=== PATIENT | female | born 1935 | race Caucasian/White ===

== ENCOUNTER 2016-08-10 19:23 | Inpatient (IN) | payer OTHER ==
[2016-08-10] MEDS ORDERED: DUONEB NEB STA (19:38)
[2016-08-10 19:59] LABS: ABG PCO2 29.3 mmHg (35-45); ABG PH 7.413 (7.35-7.45)
--- NOTE | 2016-08-10 19:59 | ED.PDOC ---
General ED Provider: Dr. CONY GALLARDO Chief Complaint: Fever Stated Complaint: Patient is an 81 year old female who comes to the ER with fever body aches and weakness for the last two days. Time Seen by Physician: 19:56 Mode of Arrival: Wheelchair Information Source: Patient, Family Exam Limitations: No limitations Primary Care Provider: CHRIS NELSON Nursing and Triage Documentation Reviewed and Agree: Yes Miscellaneous Complaint Exam - Febrile Illness/Adult Complaint/Exam Onset/Duration: 2 days Symptoms Are: Still present Timing: Constant Highest Temperature Recorded: 101 Initial Severity: Moderate Current Severity: Severe Alleviating: Reports: None Associated Signs and Symptoms: Reports: Short of air Pseudomonas Risk Factors: Reports: None Serious Bacterial Infection Risk Factors: Reports: None Differential Diagnoses: Bacteremia, Pneumonia, Viremia, Other (serum ) Patient Advised to Stop Smoking: No Review of Systems - Review Of Systems Constitutional: Reports: Fever, Weakness, Other (body ache ) Eyes: Reports: No symptoms Ears, Nose, Mouth, Throat: Reports: No symptoms Respiratory: Reports: Cough, Short of air Cardiac: Reports: No symptoms GI: Reports: No symptoms : Reports: No symptoms Musculoskeletal: Reports: No symptoms Skin: Reports: No symptoms Neurological: Reports: No symptoms Endocrine: Reports: No symptoms Hematologic/Lymphatic: Reports: No symptoms All Other Systems: Reviewed and Negative Past Medical History - Past Medical History Endocrine: Reports: Hypothyroid, Dyslipidemia Cardiovascular: Reports: CAD, Hypertension Respiratory: Reports: COPD (on home oxygen ) Hematological: Reports: None Gastrointestinal: Reports: GERD Genitourinary: Reports: None Neuro/Psych: Reports: Anxiety, Depression Musculoskeletal: Reports: Arthritis Cancer: Reports: None Last Menstrual Period: NA - Surgical History General Surgical History: Reports: Stent Placement, Other (ovarian Cyst ) - Family History Family History: Reports: None - Social History Smoking Status: Former smoker Hx Substance Use: No Alcohol Screening: None - Immunizations Tetanus Shot up to Date: No Physical Exam - Physical Exam Appearance: Ill-appearing, Well-nourished Ill-appearing: Moderate Pain Distress: Mild Eyes: DICK, EOMI, Conjunctiva clear ENT: Nose normal, Oropharynx normal Neck: Supple Respiratory: Airway patent, Breath sounds clear, Breath sounds equal, Respirations nonlabored Cardiovascular: RRR, Pulses normal, No rub, No murmur GI/: Soft, Nontender, No masses, Bowel sounds normal, No Organomegaly Musculoskeletal: Normal strength, ROM intact, No edema, No calf tenderness Skin: Warm, Dry, Normal color Neurological: Sensation intact, Motor intact, Cranial nerves intact, Alert, Oriented Psychiatric: Affect appropriate, Anxious Interpretation - Radiology Interpretation Radiology Interpretation By: ED Physician Radiology Results: Positive Exam Interpreted: Portable CXR (mild left basilar Atelectasis and or Pneumonia. ) - EKG Interpretation Rate: Normal Rhythm: Sinus Ectopy: None [place]: Left Interpretation: st-t wave abnomality consider anterolateral ischemia Re-Evaluation - Re-Evaluation Time of Re-Evaluation: 22:33 Status: Improved Vital Signs Stable: Yes Lungs: Other (diminihsed) Physician Notification - Case Discussed Physician Notified: Sagastume Time of Notification: 22:20 (Admit to SCU ) Critical Care Note - Critical Care Note Total Time (mins): 40 Course - Course Hematology/Chemistry: 08/10/16 20:00 08/10/16 20:00 Orders, Labs, Meds: Lab Review 08/10/16 08/10/16 19:38 20:00 WBC 1.85 L* RBC 4.25 Hgb 13.0 Hct 38.9 MCV 91.5 MCH 30.6 MCHC 33.4 RDW Coeff of Nataliya 14.1 Plt Count 102 L Immature Gran % (Auto) 0.5 Neut % (Auto) 78.9 Lymph % (Auto) 14.1 [place] % (Auto) 5.4 Eos % (Auto) 0.0 Baso % (Auto) 1.1 Immature Gran # (Auto) 0.0 Neut # 1.5 L Lymph # 0.3 L [place] # 0.1 L Eos # 0.0 Baso # 0.0 PT 20.1 H INR 1.95 Puncture Site lr O2 Saturation 85.0 L ABG pH 7.413 ABG pCO2 29.3 L ABG pO2 48.0 L* ABG HCO3 18.7 L ABG Total CO2 20 L ABG Base Excess -6 L Micheal Test + FiO2 % 21.0 Sodium 138 Potassium 3.7 Chloride 109 H Carbon Dioxide 19 L Anion Gap 13.7 BUN 15 Creatinine 1.07 Estimated GFR (MDRD) 49.00 BUN/Creatinine Ratio 14.01 Glucose 107 Lactic Acid 8.3 Calcium 9.2 Total Bilirubin 0.88 AST 72 H ALT 42 Alkaline Phosphatase 44 L Total Creatine Kinase 53 Troponin I 0.0180 B-Natriuretic Peptide 107 H Total Protein 6.3 Albumin 3.7 Globulin 2.6 Albumin/Globulin Ratio 1.42 Procalcitonin 0.19 Acetaminophen 6 L Orders Category Date Time Status ADMIT PATIENT INPATIENT .TO SCU (MONITORED BED) ADMISSION 08/10/16 22:17 Active ABG DRAW REQUEST Stat CARDIO 08/10/16 19:39 Completed EKG-(ED ONLY) Stat CARDIO 08/10/16 19:38 Completed NEBULIZER TREATMENT Routine CARDIO 08/10/16 22:24 Ordered NEBULIZER TREATMENT Stat CARDIO 08/10/16 19:39 Completed OXYGEN Routine CARDIO 08/10/16 22:17 Ordered ACTIVITY .BR with BRP CARE 08/10/16 22:19 Active INTAKE & OUTPUT Q8HR CARE 08/10/16 22:17 Active TELEMETRY MONITORING TELE CARE 08/10/16 22:18 Active VITAL SIGNS Q4HR CARE 08/10/16 22:19 Active REGULAR DIET DIETARY 08/10/16 Breakfast Ordered ED APPLY O2 .ONCE EMERGENCY 08/10/16 19:38 Active ED LAST PICKER APPLIED .ONCE EMERGENCY 08/10/16 19:38 Active ED IV/MEDIPORT/POWERPORT .ONCE EMERGENCY 08/10/16 19:38 Active ABG Stat LAB 08/10/16 19:38 Completed B-TYPE NATRIURETIC PEPTIDE Stat LAB 08/10/16 20:00 Completed BLOOD CULTURE Stat LAB 08/10/16 20:00 Received CBC W/ AUTO DIFF DAILY@0600 LAB 08/11/16 06:00 Ordered CBC W/ AUTO DIFF DAILY@0600 LAB 08/12/16 06:00 Ordered CBC W/ AUTO DIFF DAILY@0600 LAB 08/13/16 06:00 Ordered CBC W/ AUTO DIFF DAILY@0600 LAB 08/14/16 06:00 Ordered CBC W/ AUTO DIFF DAILY@0600 LAB 08/15/16 06:00 Ordered CBC W/ AUTO DIFF DAILY@0600 LAB 08/16/16 06:00 Ordered CBC W/ AUTO DIFF DAILY@0600 LAB 08/17/16 06:00 Ordered CBC W/ AUTO DIFF DAILY@0600 LAB 08/18/16 06:00 Ordered CBC W/ AUTO DIFF DAILY@0600 LAB 08/19/16 06:00 Ordered CBC W/ AUTO DIFF DAILY@0600 LAB 08/20/16 06:00 Ordered CBC W/ AUTO DIFF DAILY@0600 LAB 08/21/16 06:00 Ordered CBC W/ AUTO DIFF DAILY@0600 LAB 08/22/16 06:00 Ordered CBC W/ AUTO DIFF DAILY@0600 LAB 08/23/16 06:00 Ordered CBC W/ AUTO DIFF DAILY@0600 LAB 08/24/16 06:00 Ordered CBC W/ AUTO DIFF DAILY@0600 LAB 08/25/16 06:00 Ordered CBC W/ AUTO DIFF DAILY@0600 LAB 08/26/16 06:00 Ordered CBC W/ AUTO DIFF DAILY@0600 LAB 08/27/16 06:00 Ordered CBC W/ AUTO DIFF DAILY@0600 LAB 08/28/16 06:00 Ordered CBC W/ AUTO DIFF DAILY@0600 LAB 08/29/16 06:00 Ordered CBC W/ AUTO DIFF DAILY@0600 LAB 08/30/16 06:00 Ordered CBC W/ AUTO DIFF Stat LAB 08/10/16 20:00 Completed COMPREHENSIVE METABOLIC PANEL DAILY@0600 LAB 08/11/16 06:00 Ordered COMPREHENSIVE METABOLIC PANEL DAILY@0600 LAB 08/12/16 06:00 Ordered COMPREHENSIVE METABOLIC PANEL DAILY@0600 LAB 08/13/16 06:00 Ordered COMPREHENSIVE METABOLIC PANEL DAILY@0600 LAB 08/14/16 06:00 Ordered COMPREHENSIVE METABOLIC PANEL DAILY@0600 LAB 08/15/16 06:00 Ordered COMPREHENSIVE METABOLIC PANEL DAILY@0600 LAB 08/16/16 06:00 Ordered COMPREHENSIVE METABOLIC PANEL DAILY@0600 LAB 08/17/16 06:00 Ordered COMPREHENSIVE METABOLIC PANEL DAILY@0600 LAB 08/18/16 06:00 Ordered COMPREHENSIVE METABOLIC PANEL DAILY@0600 LAB 08/19/16 06:00 Ordered COMPREHENSIVE METABOLIC PANEL DAILY@0600 LAB 08/20/16 06:00 Ordered COMPREHENSIVE METABOLIC PANEL DAILY@0600 LAB 08/21/16 06:00 Ordered COMPREHENSIVE METABOLIC PANEL DAILY@0600 LAB 08/22/16 06:00 Ordered COMPREHENSIVE METABOLIC PANEL DAILY@0600 LAB 08/23/16 06:00 Ordered COMPREHENSIVE METABOLIC PANEL DAILY@0600 LAB 08/24/16 06:00 Ordered COMPREHENSIVE METABOLIC PANEL DAILY@0600 LAB 08/25/16 06:00 Ordered COMPREHENSIVE METABOLIC PANEL DAILY@0600 LAB 08/26/16 06:00 Ordered COMPREHENSIVE METABOLIC PANEL DAILY@0600 LAB 08/27/16 06:00 Ordered COMPREHENSIVE METABOLIC PANEL DAILY@0600 LAB 08/28/16 06:00 Ordered COMPREHENSIVE METABOLIC PANEL DAILY@0600 LAB 08/29/16 06:00 Ordered COMPREHENSIVE METABOLIC PANEL DAILY@0600 LAB 08/30/16 06:00 Ordered COMPREHENSIVE METABOLIC PANEL Stat LAB 08/10/16 20:00 Completed CREATINE KINASE Stat LAB 08/10/16 20:00 Completed LACTIC ACID Stat LAB 08/10/16 20:00 Completed PROCALCITONIN Stat LAB 08/10/16 20:00 Completed PT WITH INR DAILY@0600 LAB 08/11/16 06:00 Ordered PT WITH INR DAILY@0600 LAB 08/12/16 06:00 Ordered PT WITH INR DAILY@0600 LAB 08/13/16 06:00 Ordered PT WITH INR DAILY@0600 LAB 08/14/16 06:00 Ordered PT WITH INR DAILY@0600 LAB 08/15/16 06:00 Ordered PT WITH INR DAILY@0600 LAB 08/16/16 06:00 Ordered PT WITH INR DAILY@0600 LAB 08/17/16 06:00 Ordered PT WITH INR DAILY@0600 LAB 08/18/16 06:00 Ordered PT WITH INR DAILY@0600 LAB 08/19/16 06:00 Ordered PT WITH INR DAILY@0600 LAB 08/20/16 06:00 Ordered PT WITH INR DAILY@0600 LAB 08/21/16 06:00 Ordered PT WITH INR DAILY@0600 LAB 08/22/16 06:00 Ordered PT WITH INR DAILY@0600 LAB 08/23/16 06:00 Ordered PT WITH INR DAILY@0600 LAB 08/24/16 06:00 Ordered PT WITH INR DAILY@0600 LAB 08/25/16 06:00 Ordered PT WITH INR DAILY@0600 LAB 08/26/16 06:00 Ordered PT WITH INR DAILY@0600 LAB 08/27/16 06:00 Ordered PT WITH INR DAILY@0600 LAB 08/28/16 06:00 Ordered PT WITH INR DAILY@0600 LAB 08/29/16 06:00 Ordered PT WITH INR DAILY@0600 LAB 08/30/16 06:00 Ordered PT WITH INR Stat LAB 08/10/16 20:00 Completed RAPID FLU A/B Stat LAB 08/10/16 22:32 Uncollected STREP SCREEN Stat LAB 08/10/16 22:32 Uncollected TROPONIN I Stat LAB 08/10/16 20:00 Completed TYLENOL LEVEL [ACETAMINOPHEN] Stat LAB 08/10/16 20:00 Completed UA [URINALYSIS C & S IF INDICATED] Stat LAB 08/10/16 22:16 Uncollected 0.9 % Sodium Chloride [Saline Flush] MEDS 08/10/16 19:38 Ordered 1 syr IVF PRN PRN Acetaminophen [Tylenol] MEDS 08/10/16 22:17 Ordered 650 mg PO Q4H PRN Alprazolam [Alprazolam Odt] MEDS 08/11/16 09:00 Ordered 0.25 mg PO TID Atorvastatin Calcium [Lipitor] MEDS 08/11/16 09:00 Ordered 40 mg PO DAILY Calc/D3/Mag/Zn/Integrity Director/[place] [Calcium 600 mg + Vit D MEDS 08/11/16 09:00 Ordered Tab] 1 each PO BID Fenofibrate [Triglide] MEDS 08/11/16 09:00 Ordered 54 mg PO DAILY Ferrous Sulfate [Ferrous Sulfate] MEDS 08/11/16 09:00 Ordered 325 mg PO DAILY Fish Oil/Dha/Epa [Fish Oil 1,200 mg Fish Oil] MEDS 08/11/16 09:00 Ordered 1 cap PO BID Hydrocodone Bit/Acetaminophen MEDS 08/10/16 22:24 Ordered 1 tab PO BID PRN Ipratropium/Albuterol Neb [Duoneb] MEDS 08/10/16 19:38 Discontinued 1 vial NEB ONCE STA Ipratropium/Albuterol Neb [Duoneb] MEDS 08/11/16 06:00 Ordered 1 vial NEB RTQID Levothyroxine Sodium [Tirosint] MEDS 08/11/16 09:00 Ordered 13 mcg PO DAILY Lisinopril [Zestril] MEDS 08/11/16 09:00 Ordered 20 mg PO DAILY Loratadine [Claritin] MEDS 08/11/16 09:00 Ordered 10 mg PO DAILY Methylprednisolone Sod Succ/Pf [Solu-Medrol 125 mg] MEDS 08/11/16 05:00 Ordered 125 mg IVP Q8HR Ondansetron HCl/Pf [Zofran 4 mg/2 ml] MEDS 08/10/16 22:17 Ordered 4 mg IVP Q6H PRN Piperacillin Sodium/Tazobactam [Zosyn 3.375 gm] 3.375 MEDS 08/10/16 20:29 Discontinued gm 0.9 % Sodium Chloride [Sodium Chloride] 100 ml IV ONCE Piperacillin Sodium/Tazobactam [Zosyn 3.375 gm] 3.375 MEDS 08/11/16 00:00 Ordered gm 0.9 % Sodium Chloride [Sodium Chloride] 100 ml IV Q6HR Sertraline HCl [Zoloft] MEDS 08/11/16 09:00 Ordered 75 mg PO DAILY Sodium Chloride 0.9% [Sodium Chloride] 1,000 ml MEDS 08/10/16 22:30 Ordered IV 125 mls/hr Sodium Chloride 0.9% [Sodium Chloride] 1,000 ml MEDS 08/10/16 22:30 Discontinued IV 75 mls/hr Sodium Chloride 0.9% [Sodium Chloride] 1,000 ml MEDS 08/10/16 20:30 Discontinued IV BOLUS Vancomycin HCl [Vancomycin] 1 gm MEDS 08/10/16 21:15 Discontinued 0.9 % Sodium Chloride [Sodium Chloride] 250 ml IV ONCE Vancomycin HCl [Vancomycin] 1 gm MEDS 08/11/16 09:00 Ordered 0.9 % Sodium Chloride [Sodium Chloride] 250 ml IV Q12HR Warfarin Sodium [Coumadin] MEDS 08/11/16 09:00 Ordered 3 mg PO DAILY RESUSCITATION STATUS Routine OTHERS 08/10/16 22:17 Ordered CHEST, 1V AP ONLY Stat RADS 08/10/16 19:38 Completed Medications Generic Name Dose Route Start Last Admin Trade Name Freq PRN Reason Stop Dose Admin Acetaminophen 650 mg 08/10/16 22:17 Tylenol PO Q4H PRN Fever >101 Albuterol/Ipratropium 1 vial 08/11/16 06:00 Duoneb NEB RTQID CHUY Fenofibrate 54 mg 08/11/16 09:00 Triglide PO DAILY CHUY Piperacillin Sod/Tazobactam 100 mls @ 100 mls/hr 08/11/16 00:00 Sod 3.375 gm/ Sodium Chloride IV Q6HR CHUY Vancomycin HCl 1 gm/ Sodium 250 mls @ 125 mls/hr 08/11/16 09:00 Chloride IV Q12HR CHUY Sodium Chloride 1,000 mls @ 125 mls/hr 08/10/16 22:30 Sodium Chloride IV .Q8H CHUY Lisinopril 20 mg 08/11/16 09:00 Zestril PO DAILY CHUY Methylprednisolone Sodium Succinate 125 mg 08/11/16 05:00 Solu-Medrol 125 Mg IVP Q8HR CHUY Non-Formulary Medication 1 each 08/11/16 09:00 Calc/D3/Mag/Zn/Integrity Director/[place] [Calcium 600 Mg + Vit D Tab] PO BID CHUY Non-Formulary Medication 325 mg 08/11/16 09:00 Ferrous Sulfate [Ferrous Sulfate] PO DAILY CHUY Non-Formulary Medication 1 cap 08/11/16 09:00 Fish Oil/Dha/Epa [Fish Oil 1,200 Mg Fish Oil] PO BID CHUY Non-Formulary Medication 1 tab 08/10/16 22:24 Hydrocodone Bit/Acetaminophen PO BID PRN Severe Pain Non-Formulary Medication 13 mcg 08/11/16 09:00 Levothyroxine Sodium [Tirosint] PO DAILY [facility] Non-Formulary Medication 10 mg 08/11/16 09:00 Loratadine [Claritin] PO DAILY [facility] Non-Formulary Medication 3 mg 08/11/16 09:00 Warfarin Sodium [Coumadin] PO DAILY CHUY Non-Formulary Medication 0.25 mg 08/11/16 09:00 Alprazolam [Alprazolam Odt] PO TID CHUY Non-Formulary Medication 40 mg 08/11/16 09:00 Atorvastatin Calcium [Lipitor] PO DAILY [facility] Ondansetron HCl 4 mg 08/10/16 22:17 Zofran 4 Mg/2 Ml IVP Q6H PRN Nausea / Vomiting Sertraline HCl 75 mg 08/11/16 09:00 Zoloft PO DAILY [facility] Sodium Chloride 1 syr 08/10/16 19:38 08/10/16 20:39 Saline Flush IVF 1 syr PRN PRN Administration To flush IV Discontinued Medications Generic Name Dose Route Start Last Admin Trade Name Freq PRN Reason Stop Dose Admin Albuterol/Ipratropium 1 vial 08/10/16 19:38 08/10/16 20:08 Duoneb NEB 08/10/16 19:39 1 vial ONCE STA Administration Piperacillin Sod/Tazobactam 100 mls @ 100 mls/hr 08/10/16 20:29 08/10/16 20: 44 Sod 3.375 gm/ Sodium Chloride IV 08/10/16 21:28 100 mls/hr ONCE STA Administration Sodium Chloride 1,000 mls @ 1,000 mls/hr 08/10/16 20:30 08/10/16 20:39 Sodium Chloride IV 08/10/16 21:29 1,000 mls/hr BOLUS STA Administration Vancomycin HCl 1 gm/ Sodium 250 mls @ 250 mls/hr 08/10/16 21:15 08/10/16 22: 10 Chloride IV 08/10/16 22:14 250 mls/hr ONCE STA Administration Sodium Chloride 1,000 mls @ 75 mls/hr 08/10/16 22:30 Sodium Chloride IV .[id number] CHUY Vital Signs: Temp Pulse Resp BP Pulse Ox 08/10/16 19:24 101.6 F H 84 32 H 115/65 83 L Departure - Departure Time of Disposition: 22:27 Disposition: ADMITTED INPATIENT Discharge Problem: Fever, Hypoxia Pneumonia Qualifiers: Pneumonia type: due to unspecified organism Laterality: left Lung location: lower lobe of lung Qualifier Code: (J18.1) Lobar pneumonia, unspecified organism Condition: Critical Pt referred to PMD for follow-up: Yes Allergies/Adverse Reactions: Allergies propoxyphene HCl [From Darvon] Adverse Reaction (Verified 08/10/16 19:45) Home Medications: Ambulatory Orders Alendronate Sodium [Fosamax] 70 mg PO WEEKLY FOSAMAX 10/05/12 Alprazolam [Alprazolam Odt] 0.25 mg PO TID 10/05/12 Atorvastatin Calcium [Lipitor] 40 mg PO DAILY 10/05/12 Calc/D3/Mag/Zn/Integrity Director/[place] [Calcium 600 mg + Vit D Tab] 1 each PO BID Fenofibrate 54 mg PO DAILY 10/05/12 Ferrous Sulfate 325 mg PO DAILY 10/05/12 Hydrocodone Bit/Acetaminophen [Lortab 5-500] 1 tab PO BID PRN 10/05/12 Levothyroxine Sodium [Tirosint] 13 mcg PO DAILY 10/05/12 Lisinopril [Zestril] 20 mg PO DAILY 10/05/12 Sertraline HCl 75 mg PO DAILY 10/05/12 Warfarin Sodium [Coumadin] 3 mg PO DAILY 10/05/12 Fish Oil/Dha/Epa [Fish Oil 1,200 mg Fish Oil] 1 cap PO BID 08/10/16 Loratadine [Claritin] 10 mg PO DAILY 08/10/16
[2016-08-10 20:00] LABS: ABG BASE EXCESS -6 (-2.0-2.0); ABG HCO3 18.7 (22.0-26.0); ABG TCO2 20 (22.0-28.0)
[2016-08-10 20:12] LABS: BASOPHILS % (AUTO) 1.1 % (0.0-3.0); HEMATOCRIT 38.9 % (37.0-47.0); IMMATURE GRANULOCYTE % (AUTO) 0.5 % (0.0-5.0); LYMPHOCYTES # (AUTO) 0.3 K/uL (0.60-3.4); LYMPHOCYTES % (AUTO) 14.1 (10.0-50.0); MEAN CORPUSCULAR HEMOGLOBIN 30.6 pg (27.0-31.0); MEAN CORPUSCULAR HGB CONC 33.4 (31.8-35.4); MEAN CORPUSCULAR VOLUME 91.5 fl (81.0-99.0); MONOCYTES # (AUTO) 0.1 K/uL (0.4-2.0); MONOCYTES % (AUTO) 5.4 (0-10); NEUTROPHILS # (AUTO) 1.5 K/ul (2.0-6.9); NEUTROPHILS % (AUTO) 78.9; PLATELET COUNT 102 10^3/uL (140-440); RED BLOOD COUNT 4.25 10^6/ul (4.20-5.40)
[2016-08-10 20:25] LABS: WHITE BLOOD COUNT 1.85 K/ul (4.6-10.2)
[2016-08-10] MEDS ORDERED: ZOSYN 3.375 GM 3.375 GM in SODIUM CHLORIDE 100 ML IV STA (20:29)
[2016-08-10] MEDS ORDERED: SODIUM CHLORIDE 1,000 ML IV STA (20:30)
[2016-08-10 20:35] LABS: ALBUMIN 3.7 g/dL (3.4-5.0); ALBUMIN/GLOBULIN RATIO 1.42; ANION GAP 13.7; BILIRUBIN,TOTAL 0.88 mg/dL (0.00-1.20); BUN/CREATININE RATIO 14.01; CALCIUM 9.2 mg/dL (8.2-10.2); CREATININE 1.07 mg/dL (0.60-1.30); POTASSIUM 3.7 mmol/L (3.5-5.10); TOTAL PROTEIN 6.3 g/dL (5.8-8.1); TROPONIN I 0.018 ng/ml (0.0000-0.4000)
[2016-08-10 20:41] LABS: PROTHROMBIN TIME 20.1 SEC (9.3-11.0)
--- NOTE | 2016-08-10 20:58 | DI ---
EXAM: AP single view of the chest. HISTORY: Shortness of breath. Fever and cough. FINDINGS: The bones are unremarkable. The cardiac silhouette is mildly enlarged. Pulmonary vascula ture is within normal limits. The costophrenic angles are clear. There are calcified granulomas. There is minimal left basilar atelectasis and/or pneumonia. Impression: Minimal left basilar atelectasis and/or pneumonia. Cardiomegaly.
[2016-08-10] MEDS ORDERED: VANCOMYCIN 1 GM in SODIUM CHLORIDE 250 ML IV STA (21:15)
[2016-08-10] MEDS ORDERED: TYLENOL PO PRN (22:17)
[2016-08-10] MEDS ORDERED: ZOFRAN 4 MG/2 ML IVP PRN (22:17)
[2016-08-10] MEDS ORDERED: NON-FORMULARY MEDICATION (Hydrocodone Bit/Acetaminophen 1 TAB) PO PRN (22:24)
[2016-08-10] MEDS ORDERED: SODIUM CHLORIDE 1,000 ML IV SCH (22:30)
[2016-08-10 22:58] LABS: FLU INTERNAL QC INTERNAL QC VALID; RAPID FLU A NEGATIVE (NEGATIVE); RAPID FLU B NEGATIVE (NEGATIVE)
[2016-08-11 00:29] VITALS: BMI 23.6
[2016-08-11 00:46] LABS: BILIRUBIN,URINE Negative (NEGATIVE); KETONES,URINE Negative (NEGATIVE); LEUKOCYTE ESTERASE ,URINE Trace (NEGATIVE); NITRITE,URINE Positive (NEGATIVE); PROTEIN,URINE Negative (NEGATIVE); URINE, BLOOD 2+ (NEGATIVE)
[2016-08-11 00:47] LABS: ADD URINE MICROSCOPIC YES
[2016-08-11 00:50] LABS: BACTERIA,URINE 1+ (NOT PRESENT)
[2016-08-11] MEDS: ZOSYN 3.375 GM 3.375 GM in SODIUM CHLORIDE 100 ML IV SCH ×4 (01:15→18:18)
[2016-08-11] MEDS ORDERED: NORCO 5-325 ONE (04:04)
[2016-08-11] MEDS: SODIUM CHLORIDE 1,000 ML IV SCH ×2 (04:08→12:44)
[2016-08-11 04:46] LABS: BASOPHILS % (AUTO) 0.6 % (0.0-3.0); HEMATOCRIT 35.2 % (37.0-47.0); HEMOGLOBIN 11.4 g/dl (12.0-16.0); IMMATURE GRANULOCYTE % (AUTO) 1.2 % (0.0-5.0); LYMPHOCYTES # (AUTO) 0.4 K/uL (0.60-3.4); LYMPHOCYTES % (AUTO) 22.1 (10.0-50.0); MEAN CORPUSCULAR HEMOGLOBIN 30.2 pg (27.0-31.0); MEAN CORPUSCULAR HGB CONC 32.4 (31.8-35.4); MEAN CORPUSCULAR VOLUME 93.4 fl (81.0-99.0); MONOCYTES # (AUTO) 0.1 K/uL (0.4-2.0); MONOCYTES % (AUTO) 7.6 (0-10); NEUTROPHILS # (AUTO) 1.2 K/ul (2.0-6.9); NEUTROPHILS % (AUTO) 68.5; PLATELET COUNT 77 10^3/uL (140-440); RED BLOOD COUNT 3.77 10^6/ul (4.20-5.40)
[2016-08-11] MEDS: SOLU-MEDROL 125 MG IVP SCH ×3 (04:46→20:48)
[2016-08-11 04:59] LABS: WHITE BLOOD COUNT 1.72 K/ul (4.6-10.2)
[2016-08-11 05:03] LABS: ALBUMIN 3.1 g/dL (3.4-5.0); ALBUMIN/GLOBULIN RATIO 1.35; ANION GAP 11.9; BILIRUBIN,TOTAL 0.89 mg/dL (0.00-1.20); BUN/CREATININE RATIO 12.26; CALCIUM 8.2 mg/dL (8.2-10.2); CREATININE 1.06 mg/dL (0.60-1.30); POTASSIUM 3.9 mmol/L (3.5-5.10); TOTAL PROTEIN 5.4 g/dL (5.8-8.1)
[2016-08-11] MEDS: DUONEB NEB SCH ×4 (05:17→21:14)
[2016-08-11] MEDS ORDERED: DUONEB NEB ONE (05:17)
[2016-08-11] MEDS ORDERED: NORCO 5-325 PO PRN (07:16)
[2016-08-11] MEDS: CALCIUM 500 + VIT D 200 MG TABLET PO SCH ×2 (08:42→20:17)
[2016-08-11] MEDS: ZOLOFT PO SCH (08:42)
[2016-08-11] MEDS: TRIGLIDE PO SCH (08:43)
[2016-08-11] MEDS: ZESTRIL PO SCH (08:43)
[2016-08-11] MEDS: OMEGA-3 FISH OIL PO SCH ×2 (08:43→20:17)
[2016-08-11] MEDS: CLARITIN PO SCH (08:43)
[2016-08-11] MEDS: LIPITOR PO SCH (08:43)
[2016-08-11] MEDS ORDERED: NON-FORMULARY MEDICATION (Atorvastatin Calcium [Lipitor] 40 MG) PO SCH ×22 (09:00)
[2016-08-11] MEDS ORDERED: XANAX PO SCH (09:00)
[2016-08-11] MEDS ORDERED: LEVOTHYROXINE SODIUM 13 MCG PO SCH (09:00)
[2016-08-11] MEDS ORDERED: VANCOMYCIN 1 GM in SODIUM CHLORIDE 250 ML IV SCH (09:00)
[2016-08-11] MEDS ORDERED: NON-FORMULARY MEDICATION (Loratadine [Claritin] 10 MG) PO SCH ×22 (09:00)
[2016-08-11] MEDS ORDERED: FERROUS SULFATE PO SCH (09:00)
[2016-08-11] MEDS ORDERED: DHA PO SCH (09:00)
[2016-08-11] MEDS ORDERED: FISH OIL PO SCH (09:00)
[2016-08-11] MEDS ORDERED: NON-FORMULARY MEDICATION (Ferrous Sulfate [Ferrous Sulfate] 325 MG) PO SCH ×22 (09:00)
[2016-08-11] MEDS ORDERED: ALPRAZOLAM 0.25 MG PO SCH (09:00)
[2016-08-11] MEDS ORDERED: EPA PO SCH (09:00)
[2016-08-11] MEDS ORDERED: NON-FORMULARY MEDICATION (Warfarin Sodium [Coumadin] 3 MG) PO SCH ×22 (09:00)
[2016-08-11] MEDS ORDERED: XANAX PO PRN (11:21)
[2016-08-11] MEDS: SYNTHROID PO SCH (12:48)
[2016-08-11] MEDS: NORCO 5-325 PO PRN (12:49)
[2016-08-11] MEDS ORDERED: COUMADIN PO SCH (17:00)
[2016-08-11] MEDS: FERROUS SULFATE PO SCH (20:17)
[2016-08-11] MEDS: VANCOMYCIN 1 GM in SODIUM CHLORIDE 250 ML IV SCH (20:17)
[2016-08-11] MEDS: NYSTOP POWDER TP SCH (20:19)
[2016-08-11] MEDS: XANAX PO PRN (21:35)
[2016-08-12] MEDS: ZOSYN 3.375 GM 3.375 GM in SODIUM CHLORIDE 100 ML IV SCH ×5 (00:23→23:00)
[2016-08-12] MEDS: SODIUM CHLORIDE 1,000 ML IV SCH (01:56)
[2016-08-12] MEDS: SOLU-MEDROL 125 MG IVP SCH (05:00)
[2016-08-12] MEDS: DUONEB NEB SCH ×4 (05:16→19:05)
[2016-08-12] MEDS: SYNTHROID PO SCH (05:30)
[2016-08-12 05:54] LABS: BASOPHILS % (AUTO) 0.3 % (0.0-3.0); HEMATOCRIT 33.2 % (37.0-47.0); HEMOGLOBIN 10.8 g/dl (12.0-16.0); IMMATURE GRANULOCYTE % (AUTO) 0.3 % (0.0-5.0); LYMPHOCYTES # (AUTO) 0.5 K/uL (0.60-3.4); LYMPHOCYTES % (AUTO) 15.4 (10.0-50.0); MEAN CORPUSCULAR HEMOGLOBIN 30.4 pg (27.0-31.0); MEAN CORPUSCULAR HGB CONC 32.5 (31.8-35.4); MEAN CORPUSCULAR VOLUME 93.5 fl (81.0-99.0); MONOCYTES # (AUTO) 0.1 K/uL (0.4-2.0); MONOCYTES % (AUTO) 4.5 (0-10); NEUTROPHILS # (AUTO) 2.5 K/ul (2.0-6.9); NEUTROPHILS % (AUTO) 79.5; PLATELET COUNT 75 10^3/uL (140-440); RED BLOOD COUNT 3.55 10^6/ul (4.20-5.40); WHITE BLOOD COUNT 3.11 K/ul (4.6-10.2)
[2016-08-12 06:04] LABS: PROTHROMBIN TIME 32.4 SEC (9.3-11.0)
[2016-08-12 06:15] LABS: ALBUMIN 3.1 g/dL (3.4-5.0); ALBUMIN/GLOBULIN RATIO 1.29; ANION GAP 15.1; BILIRUBIN,TOTAL 0.58 mg/dL (0.00-1.20); BUN/CREATININE RATIO 14.13; CALCIUM 8.3 mg/dL (8.2-10.2); CREATININE 0.92 mg/dL (0.60-1.30); POTASSIUM 3.1 mmol/L (3.5-5.10); TOTAL PROTEIN 5.5 g/dL (5.8-8.1)
[2016-08-12] MEDS ORDERED: PREDNISONE PO STA (08:52)
[2016-08-12] MEDS: FERROUS SULFATE PO SCH ×2 (09:11→20:04)
[2016-08-12] MEDS: CLARITIN PO SCH (09:11)
[2016-08-12] MEDS: LIPITOR PO SCH (09:11)
[2016-08-12] MEDS: CALCIUM 500 + VIT D 200 MG TABLET PO SCH ×2 (09:11→20:04)
[2016-08-12] MEDS: NYSTOP POWDER TP SCH ×2 (09:12→20:05)
[2016-08-12] MEDS: OMEGA-3 FISH OIL PO SCH ×2 (09:13→20:04)
[2016-08-12] MEDS: TRIGLIDE PO SCH (09:14)
[2016-08-12] MEDS: ZESTRIL PO SCH (09:14)
[2016-08-12] MEDS: ZOLOFT PO SCH (09:15)
[2016-08-12 09:28] LABS: ABG BASE EXCESS -10 (-2.0-2.0); ABG HCO3 15.6 (22.0-26.0); ABG PCO2 27.4 mmHg (35-45); ABG PH 7.364 (7.35-7.45); ABG TCO2 16 (22.0-28.0)
[2016-08-12] MEDS: XANAX PO PRN ×2 (09:30→20:05)
[2016-08-12] MEDS: NORCO 5-325 PO PRN ×2 (11:01→20:05)
--- NOTE | 2016-08-12 11:03 | PCM.PROG ---
Attending Provider: ATTENDING PROVIDER: Dr. BIJAN ROWE DATE OF SERVICE: 08/12/16 SUBJECTIVE: This 81 year old WHITE/ F was hospitalized 08/10/16 with pneumonia possible for flu syndrome. The patient is feeling better and talkative. She is afebrile and wants to walk. Appetite is better. The patient had insomnia last night. REVIEW OF SYSTEMS: CONSTITUTIONAL: No night sweats. No fatigue, malaise, lethargy. No fever or chills. HEENT: Eyes: No visual changes. No eye pain. No eye discharge. ENT: No runny nose. No epistaxis. No sinus pain. No odynophagia. No congestion. RESPIRATORY: No cough, no congestion. No hemoptysis. CARDIOVASCULAR: No angina symptoms. No CHF symptoms. No atypical chest pain for CAD. No palpitations. No shortness of breath. GASTROINTESTINAL: No abdominal pain. No nausea or vomiting. No diarrhea or constipation. No hematemesis. No hematochezia. GENITOURINARY: No urgency. No frequency. No dysuria. No hematuria. No obstructive symptoms. No discharge. No pain. No significant abnormal bleeding. MUSCULOSKELETAL: No musculoskeletal pain; no joint swelling. NEUROLOGICAL: Awake, alert, oriented to time, place and person. No headache. No neck pain. No syncope. No seizures. No dizziness. PSYCHIATRIC: Not anxious. No depression. No suicidal thoughts. No homicidal thoughts. SKIN: No rash. No lesions. No wounds. ENDOCRINE: No unexplained weight loss. No weight gain. HEMATOLOGIC/LYMPHATIC: No anemia. No purpura. No petechiae. No prolonged or excessive bleeding. No palpable lymph nodes. PHYSICAL EXAMINATION: GENERAL: The patient is awake, alert and oriented to time, place and person, lying in bed in no distress. VITAL SIGNS: Temperature 97.2 F, Pulse 90, Respiratory Rate 18, BP 134/55, Pulse Ox 90% HEENT: Head normocephalic, atraumatic. Eyes: Extraocular muscles are intact. Pupils are equal, round and reactive to light and accommodation. Ears: No lesions. Nose appeared normal. Throat: No exudate or erythema. NECK: Supple. No JVD, no carotid bruit. No lymphadenopathy or thyromegaly. LUNGS:Decreased breath sounds but clear to auscultation. Percussion note normal. Chest symmetrical. HEART: S1, S2, no S3. No murmurs. No cyanosis or clubbing. No ascites. Pulses: Dorsalis pedis and posterior tibial pulses +1 to +2 both sides. ABDOMEN: Soft. Non-tender. Bowel sounds active. No CVA tenderness. No mass felt. EXTREMITIES: No edema. Full range of motion of all extremities, equal. NEUROLOGIC: No focal deficit. Cranial nerves II through XII are grossly intact. No headache, no double vision or headache. SKIN: Not dry. Intact. Turgor-normal. LYMPHATIC: No palpable lymph nodes/no lymphedema. MUSCULOSKELETAL: Normal joints with no swelling. Muscle tone is normal. LAB REVIEW: 08/12/16 05:45 08/12/16 05:45 08/12/16 05:45: WBC 3.11 L, RBC 3.55 L, Hgb 10.8 L, Hct 33.2 L, MCV 93.5, MCH 30.4, MCHC 32.5, RDW Coeff of Nataliya 14.0, Plt Count 75 L, Immature Gran % (Auto) 0.3, Neut % (Auto) 79.5, Lymph % (Auto) 15.4, [place] % (Auto) 4.5, Eos % (Auto) 0.0, Baso % (Auto) 0.3, Immature Gran # (Auto) 0.0, Neut # 2.5, Lymph # 0.5 L, [place] # 0.1 L, Eos # 0.0, Baso # 0.0, PT 32.4 H D, INR 3.15, Sodium 144, Potassium 3.1 L, Chloride 116 H, Carbon Dioxide 16 L, Anion Gap 15.1, BUN 13, Creatinine 0.92, Estimated GFR (MDRD) 58.00, BUN/Creatinine Ratio 14.13, Glucose 158 H, Calcium 8.3, Total Bilirubin 0.58, AST 55 H, ALT 45, Alkaline Phosphatase 38 L, Total Protein 5.5 L, Albumin 3.1 L, Globulin 2.4, Albumin/ Globulin Ratio 1.29 ASSESSMENT: 1. Flu syndrome or Pneumonia, resolved 2. Respiratory failure, controlled 3. Chronic lung disease 4. Peripheral arterial disease PLAN: 1. Continue same treatment 2. Prednisone 10mg PO twice a day 3. ABG on room air. 4. Continue all medications 5. Hold Coumadin Plan and coordination of the patient's care discussed in the presence of Dust Brush Assembler and nurse. EDUCATION: Explained the side effects of steroids to include avascular necrosis , cataracts, etc. CONDITION: Stable SCRIBED BY: FRANK PEOPLES [employer] Pump Operator scribed while in presence of service performed by Dr. BIJAN ROWE on 08/12/16 ([id number])
[2016-08-12] MEDS: PREDNISONE PO SCH (17:30)
[2016-08-12] MEDS: VANCOMYCIN 1 GM in SODIUM CHLORIDE 250 ML IV SCH (20:05)
[2016-08-13] MEDS: NORCO 5-325 PO PRN ×3 (04:21→21:18)
[2016-08-13] MEDS: XANAX PO PRN ×3 (04:21→21:18)
[2016-08-13 04:49] LABS: HEMATOCRIT 32.2 % (37.0-47.0); HEMOGLOBIN 10.4 g/dl (12.0-16.0); MEAN CORPUSCULAR HEMOGLOBIN 30.3 pg (27.0-31.0); MEAN CORPUSCULAR HGB CONC 32.3 (31.8-35.4); MEAN CORPUSCULAR VOLUME 93.9 fl (81.0-99.0); PLATELET COUNT 77 10^3/uL (140-440); RED BLOOD COUNT 3.43 10^6/ul (4.20-5.40); WHITE BLOOD COUNT 2.67 K/ul (4.6-10.2)
[2016-08-13 05:08] LABS: ANISOCYTOSIS NOT PRESENT (NOT PRESENT)
[2016-08-13 05:11] LABS: ALBUMIN 2.9 g/dL (3.4-5.0); ALBUMIN/GLOBULIN RATIO 1.38; ANION GAP 13.9; BILIRUBIN,TOTAL 0.79 mg/dL (0.00-1.20); BUN/CREATININE RATIO 16.36; CALCIUM 8.4 mg/dL (8.2-10.2); CREATININE 1.1 mg/dL (0.60-1.30); POTASSIUM 3.9 mmol/L (3.5-5.10)
[2016-08-13] MEDS: DUONEB NEB SCH ×4 (05:11→19:29)
[2016-08-13 05:24] LABS: PROTHROMBIN TIME 44.8 SEC (9.3-11.0)
[2016-08-13] MEDS: SYNTHROID PO SCH (05:51)
[2016-08-13] MEDS: ZOSYN 3.375 GM 3.375 GM in SODIUM CHLORIDE 100 ML IV SCH ×5 (05:51→23:02)
[2016-08-13] MEDS: CALCIUM 500 + VIT D 200 MG TABLET PO SCH ×2 (08:59→21:18)
[2016-08-13] MEDS: CLARITIN PO SCH (08:59)
[2016-08-13] MEDS: PREDNISONE PO SCH ×2 (09:00→17:26)
[2016-08-13] MEDS: FERROUS SULFATE PO SCH ×2 (09:00→21:18)
[2016-08-13] MEDS: NYSTOP POWDER TP SCH ×2 (09:00→21:21)
[2016-08-13] MEDS: ZOLOFT PO SCH (09:01)
[2016-08-13] MEDS: ZESTRIL PO SCH (09:01)
--- NOTE | 2016-08-13 10:16 | PCM.PROG ---
Attending Provider: ATTENDING PROVIDER: Dr. BIJAN ROWE DATE OF SERVICE: 08/13/16 SUBJECTIVE: This 81 year old WHITE/ F was hospitalized 08/10/16 with possible pneumonia but has hypoxemia with flu type of symptoms. The patient still running low grade fever with abnormal liver profile which seems to be more like viral infection. We will discontinue statin, fenofibrate and fish oil. She is alert but confused at time REVIEW OF SYSTEMS: CONSTITUTIONAL: No night sweats. No fatigue, malaise, lethargy. No fever or chills. HEENT: Eyes: No visual changes. No eye pain. No eye discharge. ENT: No runny nose. No epistaxis. No sinus pain. No odynophagia. No congestion. RESPIRATORY: No cough, no congestion. No hemoptysis. CARDIOVASCULAR: No angina symptoms. No CHF symptoms. No atypical chest pain for CAD. No palpitations. No shortness of breath. GASTROINTESTINAL: No abdominal pain. No nausea or vomiting. No diarrhea or constipation. No hematemesis. No hematochezia. GENITOURINARY: No urgency. No frequency. No dysuria. No hematuria. No obstructive symptoms. No discharge. No pain. No significant abnormal bleeding. MUSCULOSKELETAL: No musculoskeletal pain; no joint swelling. NEUROLOGICAL: Alert but confused at this time. No headache. No neck pain. No syncope. No seizures. No dizziness. PSYCHIATRIC: Not anxious. No depression. No suicidal thoughts. No homicidal thoughts. SKIN: No rash. No lesions. No wounds. ENDOCRINE: No unexplained weight loss. No weight gain. HEMATOLOGIC/LYMPHATIC: No anemia. No purpura. No petechiae. No prolonged or excessive bleeding. No palpable lymph nodes. PHYSICAL EXAMINATION: GENERAL: The patient is is alert but confused at this time, lying in bed in no distress. VITAL SIGNS: Temperature 100.2 F, Pulse 63, Respiratory Rate 16, BP 146/61, Pulse Ox 89% HEENT: Head normocephalic, atraumatic. Eyes: Extraocular muscles are intact. Pupils are equal, round and reactive to light and accommodation. Ears: No lesions. Nose appeared normal. Throat: No exudate or erythema. NECK: Supple. No JVD, no carotid bruit. No lymphadenopathy or thyromegaly. LUNGS: Clear to auscultation. Percussion note normal. Chest symmetrical. HEART: S1, S2, no S3. No murmurs. No cyanosis or clubbing. No ascites. Pulses: Dorsalis pedis and posterior tibial pulses +1 to +2 both sides. ABDOMEN: Soft. Non-tender. Bowel sounds active. No CVA tenderness. No mass felt. EXTREMITIES: No edema. Full range of motion of all extremities, equal. NEUROLOGIC: No focal deficit. Cranial nerves II through XII are grossly intact. No headache, no double vision or headache. SKIN: Not dry. Intact. Turgor-normal. LYMPHATIC: No palpable lymph nodes/no lymphedema. MUSCULOSKELETAL: Normal joints with no swelling. Muscle tone is normal. LAB REVIEW: 08/13/16 03:45 08/13/16 03:45 08/13/16 03:45: WBC 2.67 L, RBC 3.43 L, Hgb 10.4 L, Hct 32.2 L, MCV 93.9, MCH 30.3, MCHC 32.3, RDW Coeff of Nataliya 14.3, Plt Count 77 L, Neutrophils % (Manual) 89.0 H, Lymphocytes % (Manual) 5.0 L, Monocytes % (Manual) 1.0, Metamyelocytes % 4.0 H, Blast Cells 1.0 H, PT 44.8 H D, INR 4.35 H*, Sodium 145, Potassium 3.9 , Chloride 113 H, Carbon Dioxide 22 L, Anion Gap 13.9, BUN 18, Creatinine 1.10, Estimated GFR (MDRD) 48.00, BUN/Creatinine Ratio 16.36, Glucose 92 D, Calcium 8.4, Total Bilirubin 0.79, AST 130 H D, ALT 86 H D, Alkaline Phosphatase 43 L, Total Protein 5.0 L, Albumin 2.9 L, Globulin 2.1, Albumin/Globulin Ratio 1.38 08/12/16 09:20: Puncture Site R rad, O2 Saturation 90.0 L, ABG pH 7.364, ABG pCO2 27.4 L, ABG pO2 59.0 L*, ABG HCO3 15.6 L, ABG Total CO2 16 L, ABG Base Excess -10 L, Micheal Test +, FiO2 % 21.0 ASSESSMENT: 1. Viral syndrome with low grade fever and leukopenia PLAN: 1. Continue antibiotics 2. Discontinue Vancomyin 3. Discontinue Lisinopril 4. Discontinue Fish oil 5. Discontinue Fenofibrate 6. 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 Plan and coordination of the patient's care discussed in the presence of Accreditation Specialist and nurse. CONDITION: Stable SCRIBED BY: FRANK PEOPLES Onboarding Specialist scribed while in presence of service performed by Dr. BIJAN ROWE on 08/13/16 ([id number])
[2016-08-14] MEDS: ZOSYN 3.375 GM 3.375 GM in SODIUM CHLORIDE 100 ML IV SCH (05:07)
[2016-08-14] MEDS: DUONEB NEB SCH ×4 (05:25→23:10)
[2016-08-14 05:27] LABS: HEMATOCRIT 33.3 % (37.0-47.0); HEMOGLOBIN 10.7 g/dl (12.0-16.0); MEAN CORPUSCULAR HEMOGLOBIN 30.2 pg (27.0-31.0); MEAN CORPUSCULAR HGB CONC 32.1 (31.8-35.4); MEAN CORPUSCULAR VOLUME 94.1 fl (81.0-99.0); PLATELET COUNT 66 10^3/uL (140-440); RED BLOOD COUNT 3.54 10^6/ul (4.20-5.40)
[2016-08-14 05:38] LABS: PROTHROMBIN TIME 18.1 SEC (9.3-11.0)
[2016-08-14] MEDS: SYNTHROID PO SCH (05:43)
[2016-08-14] MEDS: NORCO 5-325 PO PRN ×2 (05:43→23:21)
[2016-08-14 05:47] LABS: ANISOCYTOSIS NOT PRESENT (NOT PRESENT)
[2016-08-14 05:58] LABS: ALBUMIN 2.8 g/dL (3.4-5.0); ALBUMIN/GLOBULIN RATIO 1.12; ANION GAP 12.7; BILIRUBIN,TOTAL 1.32 mg/dL (0.00-1.20); BUN/CREATININE RATIO 17.89; CALCIUM 8.4 mg/dL (8.2-10.2); CREATININE 0.95 mg/dL (0.60-1.30); POTASSIUM 3.7 mmol/L (3.5-5.10); TOTAL PROTEIN 5.3 g/dL (5.8-8.1)
[2016-08-14] MEDS: FERROUS SULFATE PO SCH ×2 (08:58→20:26)
[2016-08-14] MEDS: ZESTRIL PO SCH (08:58)
[2016-08-14] MEDS: ZOLOFT PO SCH (08:58)
[2016-08-14] MEDS: PREDNISONE PO SCH ×2 (08:59→16:34)
[2016-08-14] MEDS: CALCIUM 500 + VIT D 200 MG TABLET PO SCH ×2 (08:59→20:26)
[2016-08-14] MEDS: CLARITIN PO SCH (08:59)
[2016-08-14] MEDS ORDERED: DOXYCYCLINE HYCLATE PO SCH (09:00)
[2016-08-14] MEDS: NYSTOP POWDER TP SCH ×2 (09:04→20:26)
[2016-08-14] MEDS: XANAX PO PRN ×2 (09:04→20:41)
--- NOTE | 2016-08-14 09:37 | PCM.PROG ---
Attending Provider: ATTENDING PROVIDER: Dr. BIJAN ROWE DATE OF SERVICE: 08/14/16 SUBJECTIVE: This 81 year old WHITE/ F was hospitalized 08/10/16. The patient looks better today, eating and comfortable. The daughter is in the room. Respiratory failure is under control. The patient needs to be on home oxygen. The patient has Thrombocytopenia. No history of tick bite the patient mainly stays inside. REVIEW OF SYSTEMS: CONSTITUTIONAL: No night sweats. No fatigue, malaise, lethargy. No fever or chills. HEENT: Eyes: No visual changes. No eye pain. No eye discharge. ENT: No runny nose. No epistaxis. No sinus pain. No odynophagia. No congestion. RESPIRATORY: No cough, no congestion. No hemoptysis. CARDIOVASCULAR: No angina symptoms. No CHF symptoms. No atypical chest pain for CAD. No palpitations. No shortness of breath. GASTROINTESTINAL: No abdominal pain. No nausea or vomiting. No diarrhea or constipation. No hematemesis. No hematochezia. GENITOURINARY: No urgency. No frequency. No dysuria. No hematuria. No obstructive symptoms. No discharge. No pain. No significant abnormal bleeding. MUSCULOSKELETAL: No musculoskeletal pain; no joint swelling. NEUROLOGICAL: Awake, alert, oriented to time, place and person. No headache. No neck pain. No syncope. No seizures. No dizziness. PSYCHIATRIC: Not anxious. No depression. No suicidal thoughts. No homicidal thoughts. SKIN: No rash. No lesions. No wounds. ENDOCRINE: No unexplained weight loss. No weight gain. HEMATOLOGIC/LYMPHATIC: No anemia. No purpura. No petechiae. No prolonged or excessive bleeding. No palpable lymph nodes. PHYSICAL EXAMINATION: GENERAL: The patient is awake, alert and oriented to time, place and person, lying in bed in no distress. VITAL SIGNS: Temperature 97.5 F, Pulse 74, Respiratory Rate 20, BP 169/73, Pulse Ox 92% HEENT: Head normocephalic, atraumatic. Eyes: Extraocular muscles are intact. Pupils are equal, round and reactive to light and accommodation. Ears: No lesions. Nose appeared normal. Throat: No exudate or erythema. NECK: Supple. No JVD, no carotid bruit. No lymphadenopathy or thyromegaly. LUNGS: Decreased and clear to auscultation. Percussion note normal. Chest symmetrical. HEART: S1, S2, no S3. No murmurs. No cyanosis or clubbing. No ascites. Pulses: Dorsalis pedis and posterior tibial pulses +1 to +2 both sides. ABDOMEN: Soft. Non-tender. Bowel sounds active. No CVA tenderness. No mass felt. EXTREMITIES: No edema. Full range of motion of all extremities, equal. NEUROLOGIC: No focal deficit. Cranial nerves II through XII are grossly intact. No headache, no double vision or headache. SKIN: Not dry. Intact. Turgor-normal. LYMPHATIC: No palpable lymph nodes/no lymphedema. MUSCULOSKELETAL: Normal joints with no swelling. Muscle tone is normal. LAB REVIEW: 08/14/16 05:05 08/14/16 05:05 08/14/16 05:05: WBC 2.30 L, RBC 3.54 L, Hgb 10.7 L, Hct 33.3 L, MCV 94.1, MCH 30.2, MCHC 32.1, RDW Coeff of Nataliya 14.6, Plt Count 66 L, Neutrophils % (Manual) 69.0, Lymphocytes % (Manual) 21.0, Monocytes % (Manual) 1.0, Eosinophils % ( Manual) 1.0, Metamyelocytes % 5.0 H, Promyelocytes % 3.0 H, PT 18.1 H D, INR 1.76 D, Sodium 141, Potassium 3.7, Chloride 108 H, Carbon Dioxide 24, Anion Gap 12.7, BUN 17, Creatinine 0.95, Estimated GFR (MDRD) 56.00, BUN/Creatinine Ratio 17.89, Glucose 79 L, Calcium 8.4, Total Bilirubin 1.32 H, AST 144 H, ALT 125 H D, Alkaline Phosphatase 51 L, Total Protein 5.3 L, Albumin 2.8 L, Globulin 2.5, Albumin/Globulin Ratio 1.12 ASSESSMENT: Please see below. 1. Flu syndrome with Leukopenia 2. Abnormal liver profile, liver has somewhat worsening. PLAN: 1. Encourage patient to eat. 2. Discontinue Zosyn 3. Start on Keflex and Doxycycline 4. Continue Prednisone Plan and coordination of the patient's care discussed in the presence of Delivery Rep and nurse. EDUCATION: Explained the side effects of steroids to include avascular necrosis , cataracts, etc. CONDITION: Stable SCRIBED BY: FRANK PEOPLES, Enrollment Services Dean scribed while in presence of service performed by Dr. BIJAN ROWE on 08/14/16 ([id number])
--- NOTE | 2016-08-14 10:45 | HP ---
DATE OF SERVICE: 08/10/16 REASON FOR HOSPITALIZATION: Fever, generalized aches and weakness duration of two days. HISTORY OF PRESENT ILLNESS: 81 year old white female was brought to the emergency room with patient having fever, body aches and weakness of two days duration. The patient has flu-type symptoms with having mild cough. The patient is debilitated with poor health and multiple medical problems. She is noncompliant of medications. She lives with family, both and are sick. likely in the fdc. Daughter takes care of the patient. REVIEW OF SYSTEMS: CONSTITUTIONAL: No night sweats. Weakness, fatigue. Fever and chills. Body aches. HEENT: Eyes: No visual changes. No eye pain. No eye discharge. ENT: No runny nose. No epistaxis. No sinus pain. No sore throat. No odynophagia. No ear pain. No congestion. RESPIRATORY: Maybe mild cough, no congestion. No hemoptysis. The patient is short of breath on exertion. CARDIOVASCULAR: No angina symptoms. No CHF symptoms. No atypical chest pain for CAD. No palpitations. Shortness of breath. GASTROINTESTINAL: Poor appetite. No abdominal pain. No nausea or vomiting. No diarrhea or constipation. No hematemesis. No hematochezia. GENITOURINARY: No urgency. No frequency. No dysuria. No hematuria. No obstructive symptoms. No discharge. No pain. No significant abnormal bleeding. MUSCULOSKELETAL: Generalized aches and pains. No joint swelling. No arthritis. NEUROLOGICAL: No headache. No neck pain. No syncope. No seizures. No dizziness. PSYCHIATRIC: Not anxious. No depression. No suicidal thoughts. No homicidal thoughts. SKIN: No rash. No lesions. No wounds. ENDOCRINE: No unexplained weight loss. No weight gain. HEMATOLOGIC/LYMPHATIC: No anemia. No purpura. No petechiae. No prolonged or excessive bleeding. No palpable lymph nodes. PERSONAL/FAMILY/SOCIAL HISTORY: The patient is and lives with family. The is in the fdc. The patient is nonsmoker. No alcohol abuse. She does practically all activities of daily living, except for bathing. PAST MEDICAL/SURGICAL PROBLEMS: History of chronic lung disease History of smoking Coronary artery disease with stent Peripheral arterial disease Hypertension Depression Hypothyroidism Generalized osteoarthritis Anemia MEDICATIONS: Fosamax 70 mg weekly Xanax 0.25 mg p.o. daily Lipitor 40 mg p.o. daily Fenofibrate 54 mg p.o. daily Ferrous Sulfate 325 mg p.o. daily Lortab 5/325 mg twice a day prn for pain Levothyroxine 30 mcg p.o. daily Lisinopril 20 mg p.o. daily Zoloft 75 mg p.o. daily Coumadin 3 mg p.o. daily Loratadine 10 mg p.o. daily ALLERGIES: Diovan. PHYSICAL EXAMINATION: GENERAL: The patient seems to be oriented to person. The patient looks pale and is in no distress. VITAL SIGNS: Temperature 101.6, pulse 84, respiratory rate 32, blood pressure 115/65, pulse ox 83% on room air. HEENT: Head normocephalic, atraumatic. Eyes: Extraocular muscles are intact. Pupils are equal, round and reactive to light and accommodation. Ears: No lesions. Nose appeared normal. Throat: No exudate or erythema. NECK: Supple. No JVD, no carotid bruit. No lymphadenopathy or thyromegaly. LUNGS: Decreased breath sounds with mild wheeze. Percussion note normal. Chest symmetrical. HEART: S1, S2, no S3. No murmurs. No cyanosis or clubbing. No ascites. Pulses: Dorsalis pedis and posterior tibial pulses +1 to +2 both sides. ABDOMEN: Soft. Nontender. Bowel sounds active. No CVA tenderness. No mass felt. EXTREMITIES: Trace edema. Pulses +1 bilaterally. Full range of motion of all extremities, equal. NEUROLOGIC: No focal deficit. Cranial nerves II through XII are grossly intact. No headache, no double vision or headache. SKIN: Not dry. Intact. Turgor - normal. LYMPHATIC: No palpable lymph nodes/no lymphedema. MUSCULOSKELETAL: Normal joints with no swelling. Muscle tone is normal. LABS: Patient's Troponin is normal. BNP 107, which practically is normal. Liver profile with AST 72, otherwise normal. Creatinine 1, BUN 15. Arterial blood gases with PO2 48, PCO2 79, pH 7.41 with 85% saturation. Hemoglobin 13, hematocrit 38, WBC 1800, lactic acid normal. Procalcitonin normal. ASSESSMENT: 1. ACUTE RESPIRATORY FAILURE WITH CHRONIC LUNG DISEASE, LIKELY PNEUMONITIS 2. FEVER, CHILLS, BODY ACHES, COULD BE VIRAL SYNDROME 3. DEHYDRATION 4. CHRONIC LUNG DISEASE 5. CORONARY ARTERY DISEASE 6. CHRONIC OBSTRUCTIVE LUNG DISEASE PLAN: 1. Admission. 2. IV fluids. 3. Watch for fluid overload. 4. Steroids. 5. IV antibiotics. 6. Daily CBC, CMP. 7. Daily arterial blood gases. 8. Oxygen. 9. Continue the rest of the medications. 10. Case discussed with the daughter. CONDITION: Stable. TIME SPENT: More than 70 minutes. ARASH
[2016-08-14] MEDS: DOXYCYCLINE PO SCH ×2 (10:57→20:27)
--- NOTE | 2016-08-14 10:57 | PN ---
DATE OF SERVICE: 08/11/16 SUBJECTIVE: 81 year old white female hospitalized with hypoxemia, fever, chills syndrome, possible pneumonia. The patient's condition has improved. She is feeling better. Her appetite has improved. She is more alert. REVIEW OF SYSTEMS: CONSTITUTIONAL: No night sweats. Fatigue, weakness and tired. Fever and chills. HEENT: Eyes: No visual changes. No eye pain. No eye discharge. ENT: No runny nose. No epistaxis. No sinus pain. No sore throat. No odynophagia. No congestion. RESPIRATORY: No cough, no congestion. No hemoptysis. CARDIOVASCULAR: No angina symptoms. No CHF symptoms. No atypical chest pain for CAD. No palpitations. No shortness of breath. GASTROINTESTINAL: No abdominal pain. No nausea or vomiting. No diarrhea or constipation. No hematemesis. No hematochezia. GENITOURINARY: No urgency. No frequency. No dysuria. No hematuria. No obstructive symptoms. No discharge. No pain. No significant abnormal bleeding. MUSCULOSKELETAL: No musculoskeletal pain; no joint swelling. NEUROLOGICAL: No headache. No neck pain. No syncope. No seizures. No dizziness. PSYCHIATRIC: Not anxious. No depression. No suicidal thoughts. No homicidal thoughts. SKIN: No rash. No lesions. No wounds. ENDOCRINE: No unexplained weight loss. No weight gain. HEMATOLOGIC/LYMPHATIC: No anemia. No purpura. No petechiae. No prolonged or excessive bleeding. No palpable lymph nodes. PHYSICAL EXAMINATION: GENERAL: The patient is more alert. VITAL SIGNS: Temperature 99.7, pulse 73, respiratory rate 20, blood pressure 107/46, pulse ox 92%. HEENT: Head normocephalic, atraumatic. Eyes: Extraocular muscles are intact. Pupils are equal, round and reactive to light and accommodation. Ears: No lesions. Nose appeared normal. Throat: No exudate or erythema. NECK: Supple. No JVD, no carotid bruit. No lymphadenopathy or thyromegaly. LUNGS: Decreased breath sounds, but clear. Percussion note normal. Chest symmetrical. HEART: S1, S2, no S3. No murmurs. No cyanosis or clubbing. No ascites. Pulses: Dorsalis pedis and posterior tibial pulses +1 to +2 both sides. ABDOMEN: Soft. Nontender. Bowel sounds active. No CVA tenderness. No mass felt. EXTREMITIES: No edema. Full range of motion of all extremities, equal. NEUROLOGIC: No focal deficit. Cranial nerves II through XII are grossly intact. No headache, no double vision or headache. SKIN: Not dry. Intact. Turgor - normal. LYMPHATIC: No palpable lymph nodes/no lymphedema. MUSCULOSKELETAL: Normal joints with no swelling. Muscle tone is normal. LABS: Hemoglobin 11.4, hematocrit 35, WBC 1,700 with normal differential. Creatinine 1, BUN 13, potassium 3.9. BNP 107. INR 1.94. ASSESSMENT: 1. PNEUMONITIS, POSSIBLY VIRAL SYNDROME. THIS SEEMS TO BE SOMEWHAT BETTER. 2. DEHYDRATION PLAN: 1. IV fluids to be given. 2. Continue antibiotics. 3. Continue oxygen therapy. 4. Steroids. CONDITION: Stable. TIME SPENT: More than 30 minutes. Plan and coordination of the patient's care discussed in the presence of nurse. ARASH
[2016-08-14] MEDS: KEFLEX PO SCH ×2 (13:02→20:27)
--- NOTE | 2016-08-14 14:58 | DI ---
EXAM: Single view of the chest. History: Follow-up pneumonia Comparison: Chest radiograph 08/10/2016 Findings: Heart size is stable. Atherosclerotic vascular calcifications. Calcified granulomas agai n seen within the thorax. Mild bibasilar infiltrates could be slightly increased compared to the pr ior study or related to projection. No pneumothorax. Visualized osseous structures unchanged. Impression: Mild bibasilar infiltrates could be slightly increased compared to the prior study or r elated to projection. Recommend followup with dedicated PA and lateral chest radiograph.
[2016-08-14] MEDS ORDERED: COUMADIN PO SCH ×2 (17:00)
[2016-08-15] MEDS: DUONEB NEB SCH ×3 (05:00→14:12)
[2016-08-15] MEDS: KEFLEX PO SCH ×2 (05:22→14:06)
[2016-08-15] MEDS: SYNTHROID PO SCH (05:30)
[2016-08-15 05:36] LABS: BASOPHILS % (AUTO) 0.7 % (0.0-3.0); EOSINOPHILS % (AUTO) 0.7 % (0.0-7.0); HEMATOCRIT 31.6 % (37.0-47.0); HEMOGLOBIN 10.4 g/dl (12.0-16.0); IMMATURE GRANULOCYTE % (AUTO) 1.7 % (0.0-5.0); LYMPHOCYTES # (AUTO) 1.3 K/uL (0.60-3.4); MEAN CORPUSCULAR HEMOGLOBIN 30.2 pg (27.0-31.0); MEAN CORPUSCULAR HGB CONC 32.9 (31.8-35.4); MEAN CORPUSCULAR VOLUME 91.9 fl (81.0-99.0); MONOCYTES # (AUTO) 0.2 K/uL (0.4-2.0); NEUTROPHILS # (AUTO) 1.4 K/ul (2.0-6.9); NEUTROPHILS % (AUTO) 45.9; PLATELET COUNT 73 10^3/uL (140-440); RED BLOOD COUNT 3.44 10^6/ul (4.20-5.40)
[2016-08-15 05:54] LABS: ALBUMIN 2.7 g/dL (3.4-5.0); ALBUMIN/GLOBULIN RATIO 1.08; ANION GAP 11.2; BILIRUBIN,TOTAL 0.86 mg/dL (0.00-1.20); BUN/CREATININE RATIO 16.88; CALCIUM 8.7 mg/dL (8.2-10.2); CREATININE 0.77 mg/dL (0.60-1.30); POTASSIUM 3.2 mmol/L (3.5-5.10); TOTAL PROTEIN 5.2 g/dL (5.8-8.1)
[2016-08-15 06:04] LABS: WHITE BLOOD COUNT 2.98 K/ul (4.6-10.2)
[2016-08-15 06:15] LABS: PROTHROMBIN TIME 14.4 SEC (9.3-11.0)
[2016-08-15 09:11] LABS: ABG PCO2 35.5 mmHg (35-45)
[2016-08-15 09:14] LABS: ABG BASE EXCESS 2 (-2.0-2.0); ABG HCO3 25.8 (22.0-26.0); ABG TCO2 27 (22.0-28.0)
--- NOTE | 2016-08-15 09:23 | US ---
EXAM: Abdominal ultrasound limited HISTORY: Elevated liver enzymes COMPARISON: None TECHNIQUE: Sonographic and limited Doppler evaluation of the right upper quadrant was performed. FINDINGS: The liver is heterogeneous in echogenicity and measures 13.9 cm. The liver is lobular an d appearance. The portal vein is patent. The gallbladder demonstrates no stones or sludge. The ga llbladder wall measures 0.2 cm in thickness. Common bile duct is unremarkable and measures 0.3 cm in diameter. The pancreas is unremarkable in appearance. Right kidney is mildly hyperechoic and measu res 3.6 x 4.3 x 7.4 cm with cortical thickness of 0.6 cm IMPRESSION: 1. Mild heterogeneous and lobular appearance of the liver may represent a component of liver diseas e. 2. Mild increased echogenicity of the right kidney may represent a component of chronic medical joo al disease.
[2016-08-15] MEDS: DOXYCYCLINE PO SCH (09:35)
[2016-08-15] MEDS: CLARITIN PO SCH (09:35)
[2016-08-15] MEDS: ZESTRIL PO SCH (09:36)
[2016-08-15] MEDS: FERROUS SULFATE PO SCH (09:36)
[2016-08-15] MEDS: K-DUR PO SCH ×2 (09:36→14:56)
[2016-08-15] MEDS: ZOLOFT PO SCH (09:36)
[2016-08-15] MEDS: NYSTOP POWDER TP SCH (09:37)
[2016-08-15] MEDS: CALCIUM 500 + VIT D 200 MG TABLET PO SCH (09:37)
[2016-08-15] MEDS: PREDNISONE PO SCH (09:37)
--- NOTE | 2016-08-15 09:50 | PCM.PROG ---
Attending Provider: ATTENDING PROVIDER: Dr. BIJAN ROWE DATE OF SERVICE: 08/15/16 SUBJECTIVE: This 81 year old WHITE/ F was hospitalized 08/10/16 with flu type of symptoms and possible pneumonitis. The patient's condition has steadily improve. Her liver functions are better. WBC count is going up. Probably viral illness. REVIEW OF SYSTEMS: CONSTITUTIONAL: No night sweats. Weakness and fatigue. No fever or chills. HEENT: Eyes: No visual changes. No eye pain. No eye discharge. ENT: No runny nose. No epistaxis. No sinus pain. No odynophagia. No congestion. RESPIRATORY: No cough, no congestion. No hemoptysis. CARDIOVASCULAR: No angina symptoms. No CHF symptoms. No atypical chest pain for CAD. No palpitations. No shortness of breath. GASTROINTESTINAL: No abdominal pain. No nausea or vomiting. No diarrhea or constipation. No hematemesis. No hematochezia. Appetite not improving but better then before GENITOURINARY: No urgency. No frequency. No dysuria. No hematuria. No obstructive symptoms. No discharge. No pain. No significant abnormal bleeding. MUSCULOSKELETAL: No musculoskeletal pain; no joint swelling. NEUROLOGICAL: Awake, alert, oriented to time, place and person. No headache. No neck pain. No syncope. No seizures. No dizziness. PSYCHIATRIC: Not anxious. No depression. No suicidal thoughts. No homicidal thoughts. SKIN: No rash. No lesions. No wounds. ENDOCRINE: No unexplained weight loss. No weight gain. HEMATOLOGIC/LYMPHATIC: No anemia. No purpura. No petechiae. No prolonged or excessive bleeding. No palpable lymph nodes. PHYSICAL EXAMINATION: GENERAL: The patient is awake, alert and oriented to time, place and person, sitting in bed in no distress. VITAL SIGNS: Temperature 97.1 F, Pulse 92, Respiratory Rate 18, BP 146/64, Pulse Ox 92% HEENT: Head normocephalic, atraumatic. Eyes: Extraocular muscles are intact. Pupils are equal, round and reactive to light and accommodation. Ears: No lesions. Nose appeared normal. Throat: No exudate or erythema. NECK: Supple. No JVD, no carotid bruit. No lymphadenopathy or thyromegaly. LUNGS: Clear to auscultation. Percussion note normal. Chest symmetrical. HEART: S1, S2, no S3. No murmurs. No cyanosis or clubbing. No ascites. Pulses: Dorsalis pedis and posterior tibial pulses +1 to +2 both sides. ABDOMEN: Soft. Non-tender. Bowel sounds active. No CVA tenderness. No mass felt. EXTREMITIES: No edema. Full range of motion of all extremities, equal. NEUROLOGIC: No focal deficit. Cranial nerves II through XII are grossly intact. No headache, no double vision or headache. SKIN: Not dry. Intact. Turgor-normal. LYMPHATIC: No palpable lymph nodes/no lymphedema. MUSCULOSKELETAL: Normal joints with no swelling. Muscle tone is normal. LAB REVIEW: 08/15/16 05:15 08/15/16 05:15 08/15/16 05:15: WBC 2.98 L, RBC 3.44 L, Hgb 10.4 L, Hct 31.6 L, MCV 91.9, MCH 30.2, MCHC 32.9, RDW Coeff of Nataliya 14.5, Plt Count 73 L, Immature Gran % (Auto) 1.7, Neut % (Auto) 45.9, Lymph % (Auto) 44.0, [place] % (Auto) 7.0, Eos % (Auto) 0.7, Baso % (Auto) 0.7, Immature Gran # (Auto) 0.1, Neut # 1.4 L, Lymph # 1.3, [place] # 0.2 L, Eos # 0.0, Baso # 0.0, PT 14.4 H, INR 1.40, Sodium 141, Potassium 3.2 L, Chloride 106, Carbon Dioxide 27, Anion Gap 11.2, BUN 13, Creatinine 0.77 , Estimated GFR (MDRD) 72.00, BUN/Creatinine Ratio 16.88, Glucose 90, Calcium 8.7, Total Bilirubin 0.86, AST 68 H D, ALT 85 H D, Alkaline Phosphatase 48 L, Total Protein 5.2 L, Albumin 2.7 L, Globulin 2.5, Albumin/Globulin Ratio 1.08 ASSESSMENT: 1. Viral syndrome/pneumonia, improving 2. Chronic lung disease 3. Peripheral artery disease PLAN: 1. K-tab 20meq daily 2. Echo pending will do this afternoon 3. ABG with oxygen 4. Needs to be on continuous oxygen Plan and coordination of the patient's care discussed in the presence of Social Insurance Adviser and nurse. CONDITION: Stable SCRIBED BY: FRANK PEOPLES International Trade Teacher scribed while in presence of service performed by Dr. BIJAN RWOE on 08/15/16 ([id number])
[2016-08-15 14:27] VITALS: BP 108/60; TEMP 98.7
--- NOTE | 2016-08-15 14:48 | CM.DICTOOL ---
ADMISSION: 08/10/16 22:45 DISCHARGE: August 15, 2016 DATE OF SERVICE: 08/15/16 FINAL DIAGNOSIS Acute Respiratory Failure Pneumonia Hypoxia Viral syndrome Dehydration Elevated Liver Function Chronic Lung Disease Coronary Artery Disease with Stent Application Peripheral Artery Disease, Dr. Wharton Hypertension Depression Hypothyroid Anemia Osteoarthritis History of DVT Inferior Vena Cava Filter LAST VITALS Temp Pulse Resp BP Pulse Ox 97 F L 67 24 139/67 92 L 08/15/16 10:00 08/15/16 10:00 08/15/16 10:00 08/15/16 10:00 08/15/16 10:00 ACTIVE HOME MEDICATIONS Acetaminophen/Hydrocodone Bitart ([place] 5-325) 1 tab PO TID PRN PRN Reason: SEVERE PAIN Last Admin: 08/14/16 23:21 Dose: 1 tab Alprazolam (Xanax) 0.5 mg PO TID PRN PRN Reason: ANXIETY Last Admin: 08/14/16 20:41 Dose: 0.5 mg Calcium/Vitamin D (Calcium 500 + Vit D 200 Mg Tablet) 1 each PO BID [facility] Last Admin: 08/15/16 09:37 Dose: 1 each Ferrous Sulfate (Ferrous Sulfate) 324 mg PO BID [facility] Last Admin: 08/15/16 09:36 Dose: 324 mg Levothyroxine Sodium (Synthroid) 100 mcg PO QDAC [facility] Last Admin: 08/15/16 05:30 Dose: 100 mcg Lisinopril (Zestril) 20 mg PO DAILY [facility] Last Admin: 08/15/16 09:36 Dose: 20 mg Loratadine (Claritin) 10 mg PO DAILY [facility] Last Admin: 08/15/16 09:35 Dose: 10 mg Sertraline HCl (Zoloft) 75 mg PO DAILY [facility] Last Admin: 08/15/16 09:36 Dose: 75 mg Warfarin Sodium (Coumadin) 3 mg PO QPM [facility] Last Admin: 08/14/16 16:34 Dose: 3 mg Alendronate Sodium (Fosamax) 70 mg Weekly Last Admin: ALLERGIES propoxyphene HCl [From Darvon] Adverse Reaction (Verified 08/10/16 19:45) NEW PRESCRIPTIONS: Prednisone 10 mg BID for 2 days, then daily for 5 days Keflex 500 mg TID for 7 days Doxycycline 50 mg BID for 7 days SMOKING: Not Applicable, no longer smokes DISEASE SPECIFIC EDUCATION: Viral Syndrome Medications Use of continuous oxygen Activity Home Health LAB REVIEW: 08/15/16 05:15 08/15/16 05:15 08/15/16 08:37: Puncture Site Rb, O2 Saturation 92.0 L, ABG pH 7.470 H, ABG pCO2 35.5, ABG pO2 59.0 L*, ABG HCO3 25.8, ABG Total CO2 27, ABG Base Excess 2, O2 Delivery Device Nc, Oxygen Liter Flow 3.00, FiO2 % 32.0 08/15/16 05:15: WBC 2.98 L, RBC 3.44 L, Hgb 10.4 L, Hct 31.6 L, MCV 91.9, MCH 30.2, MCHC 32.9, RDW Coeff of Nataliya 14.5, Plt Count 73 L, Immature Gran % (Auto) 1.7, Neut % (Auto) 45.9, Lymph % (Auto) 44.0, [place] % (Auto) 7.0, Eos % (Auto) 0.7, Baso % (Auto) 0.7, Immature Gran # (Auto) 0.1, Neut # 1.4 L, Lymph # 1.3, [place] # 0.2 L, Eos # 0.0, Baso # 0.0, PT 14.4 H, INR 1.40, Sodium 141, Potassium 3.2 L, Chloride 106, Carbon Dioxide 27, Anion Gap 11.2, BUN 13, Creatinine 0.77 , Estimated GFR (MDRD) 72.00, BUN/Creatinine Ratio 16.88, Glucose 90, Calcium 8.7, Total Bilirubin 0.86, AST 68 H D, ALT 85 H D, Alkaline Phosphatase 48 L, Total Protein 5.2 L, Albumin 2.7 L, Globulin 2.5, Albumin/Globulin Ratio 1.08 PLAN: Discharge home Diet: as tolerated, regular Activity: resume as tolerated. Use walker. Oxygen has been arranged for continuous oxygen through [facility] Patient for use at 2 liters continuous Home Health services have been requested for this patient for nursing visits and assessment, medication management, vital signs including oximetry and physical therapy evaluation and treatment. Medication changes: Stop Atorvastatin Stop Fish oil Stop Fenofibrate An appointment has been arranged with Dr. Sagastume on August 23 at 10:30. Mrs. Young is alert and oriented x 3. She is forgetful at times, but cooperative. She is able to transfer from the bed to the chair with minimal assistance of the nursing staff. She feeds herself without difficulty. She is continent of bladder and bowel. Meal intakes are fair at 50%. She has qualified for continuous oxygen during her stay and this has been arranged through [facility] Patient. The daughter, Dena stays with her and is aware and agreeable to continuous oxygen and home health. Mrs. Young's skin is in good condition and free of skin breakdown. Geoffrey Sagastume MD
--- NOTE | 2016-08-20 14:21 | ECHO2D ---
Date of Exam: 08/15/16 Ordering Physician: BIJAN ROWE Reason for Echo: CARDIOMEGALY, HTN, PAD M-Mode Normal Adult Results LV Dimensions Normal Adult Results AoV Opening excursions >1.6 >1.6 LVEDD-base- 3.5-5.8 3.9 Ao root dimensions 2.0-3.7 2.4 LVESD-base- 3.1-4.6 L. Atrium dimensions 1.9-3.8 3.7 Post. Wall thickness 0.8-1.1 1.2 IV septum (thickness) 0.7-1.2 1.2 Post. Wall excursion 0.72-1.3 NORMAL Septal motion NORMAL Systolic motion R. Ventricular cavity 1.5-2.0 NORMAL LVEF 60% 67% Paradoxical septal wall motion NORMAL 2-D : 2-D M Mode Echocardiogram was performed using apical four chamber and left parasternal long and short axis views. Mitral, tricuspid and aortic valves appear to be normal. Contractility of the left ventricle seems to be normal, so is the cavity size. Left atrial cavity size and aortic root appear to be normal. There is no pericardial effusion. There is no thrombus noted in the left ventricular or left aortic cavity. No mitral valve prolapse noted. M-MODE: MV: NORMAL AV: NORMAL TV: NORMAL PV: CHAMBER SIZE: NORMAL WALL MOTION: NORMAL PERICARDIUM: NORMAL INTERPRETATION: 1. BORDERLINE LEFT VENTRICULAR HYPERTROPHY 2. NORMAL LEFT VENTRICULAR CONTRACTILITY 3. NORMAL VALVES MTDD
--- NOTE | 2016-08-21 08:42 | DS ---
DATE OF SERVICE: 08/15/16 FINAL DIAGNOSIS: 1. Acute respiratory failure 2. Pneumonia 3. Hypoxemia 4. Viral syndrome 5. Dehydration 6. Elevated Liver function 7. Chronic lung disease 8. Coronary artery disease with stent application 9. Peripheral artery disease, Dr. Wharton 10.Hypertension 11. Depression 12. Hypothyroid 13. Anemia 14. Osteoarthritis 15. History of DVT 16. Inferior Vena Cava Filter LAST VITALS: Temperature 97, pulse 67, respiratory rate 24, blood pressure 139/67 and pulse ox 92% DISCHARGE INSTRUCTIONS: Discharge home. Oxygen has been arranged for continuous oxygen through [facility] Patient for use at 2 liters continuous. Appointment has been arranged with Dr. Sagastume on August 23 and 10:30. MEDICATIONS AT DISCHARGE: [place] 5-325 PO three times a day PRN Xanax 0.5mg PO three times a day PRN Calcium 500+Vit D 200mg PO twice a day Ferrous Sulfate 324mg PO twice a day Synthroid 100mcg PO QDAC Zestril 20mg PO daily Claritin 10mg PO daily Zoloft 75mg Po daily Coumadin 3mg PO QPM Fosamax 70mg weekly. ALLERGIES: Propoxyphene NEW PRESCRIPTIONS: Prednisone 10mg twice a day for 2 days, then daily for 5 days Keflex 500mg three times a day for seven days Doxycycline 50mg twice a day for 7 days. DIET INSTRUCTIONS: As tolerated, regular ACTIVITY: Resume as tolerated, use walker SMOKING: N/A DISEASE SPECIFIC EDUCATION: Viral syndrome Medications Use of continuous oxygen Activity Home Health HOSPITAL COURSE: The patient is an 81 year old white female hospitalized with fever and respiratory failure and possibility of pneumonitis. The patient's condition has steadily improved and she is feeling a lot better. She has no distress, no cough and no fever and no chills. The appetite has improved. The daughter is in the room. Echocardiogram today showed normal LV contractility, normal valves. Labs shows improvement, liver profile has showed improvement. The patient's oral picture was more like viral syndrome with fever and abnormal liver profile with leukopenia. The patient's abnormalities have showed improvement. The patient is up and about with help. On discharge the patient's hgb was 10.4, hct 31, WBC 2,980, creatinine 0.7, BUN 13, potassium 3.2. The patient was put on K- tab 20 meq PO three times a day. Condition at the time of discharge is stable. The patient's ultrasound of the liver showed chronic liver disease. TIME SPENT: More than 60 minutes. MTDD
--- NOTE | 2016-08-21 08:44 | PN ---
08/10/16: Level 5 08/11/16: Intermediate 08/12/16: Intermediate 08/13/16: Intermediate 08/14/16: Brief 08/15/16: D as in discharge MTDD
== END 2016-08-15 16:04 | disposition home or self-care (01) | DRG 193 ==
LOC: ED 19:23 → SCU 22:45
PROVIDERS: ADMIT Internal Medicine; ATTEND Internal Medicine
DX: J18.1 Lobar pneumonia, unspecified organism (principal); J96.01 Acute respiratory failure with hypoxia; B34.9 Viral infection, unspecified; R50.9 Fever, unspecified; R06.02 Shortness of breath; I25.10 Atherosclerotic heart disease of native coronary artery without angina pectoris; R74.8 Abnormal levels of other serum enzymes; D72.819 Decreased white blood cell count, unspecified; E86.0 Dehydration; J44.9 Chronic obstructive pulmonary disease, unspecified; I73.9 Peripheral vascular disease, unspecified; I10 Essential (primary) hypertension; D64.9 Anemia, unspecified; E03.9 Hypothyroidism, unspecified; F32.9 Major depressive disorder, single episode, unspecified; M19.90 Unspecified osteoarthritis, unspecified site; Z91.14 Patient's other noncompliance with medication regimen; Z86.718 Personal history of other venous thrombosis and embolism; Z95.5 Presence of coronary angioplasty implant and graft; Z95.828 Presence of other vascular implants and grafts; Z79.01 Long term (current) use of anticoagulants; Z79.899 Other long term (current) drug therapy; Z87.891 Personal history of nicotine dependence
CPT/HCPCS: 36415; 80053; 80307; 81001; 82550; 82803; 83605; 83880; 84145; 84484; 85007; 85025; 85610; 87040; 87086; 87651; 87804; 87880; 93005; 93010; 94640; 94761; 96361; 96365; 99283

== ENCOUNTER 2017-07-09 13:34 | Emergency (ER) | payer OTHER ==
[2017-07-09 13:54] VITALS: BP 127/57; TEMP 97.9; BMI 22.3
--- NOTE | 2017-07-09 15:56 | CT ---
EXAM: CT chest without contrast HISTORY: Cough COMPARISON: Chest x-ray 08/14/2016 and 08/10/2016 TECHNIQUE: Serial axial images of the chest were obtained from the lung apices to the upper abdomen without contrast. These were viewed in multiple planes. FINDINGS: The visualized vessels demonstrates atherosclerotic disease of the aorta without aneurysm or stenosis. The heart is normal in size with minimal pericardial effusion. There are no pathologic ally enlarged mediastinal or hilar lymph nodes. Nonpathologically enlarged mediastinal lymph nodes ar e present. There is no pneumothorax or effusion. There is moderate emphysematous disease. There are multiple s cattered calcified granulomas. There is no consolidation, nodule or mass. There is bibasilar atelec tasis and minimal airway thickening. The central airway is patent. There is mild degenerative disease of the spine with minimal superior endplate deformity at T7. This has been present since thoracic spine x-ray 20 14. Limited views of the soft tissues in the upper a bdomen are unremarkable. IMPRESSION: 1. Moderate emphysema with scattered lower lobe airway thickening suggestive of chronic obstructive pulmonary disease. Component of acute small airways inflammation versus infection cannot be entirely excluded. 2. Minimal bibasilar atelectasis. 3. Scattered atherosclerotic disease of the aorta. 4. Mild degenerative disease and mild compression deformity at T7.
--- NOTE | 2017-07-09 16:05 | ED.PDOC ---
General ED Provider: Dr. DAVI PAULINO Chief Complaint: Respiratory Complaint Stated Complaint: cough Time Seen by Physician: 13:40 (has had cough flu like sympt, ) Information Source: Patient Exam Limitations: No limitations (she has had a full course of antibiotics and steroids ) Primary Care Provider: BIJAN ROWE Referred to ED by: Other (no resp distress) Nursing and Triage Documentation Reviewed and Agree: Yes (no chest pain has night tome o2 as needed ) Reviewed sepsis parameters & appropriate labs ordered?: Yes System Inflammatory Response Syndrome: Not Applicable Sepsis Protocol: For patient's 13 years and over: Temp is 96.8 and below OR 101 and greater Pulse >90 BPM Resp >20/minute Acutely Altered Mental Status Are patient's symptoms suggestive of a new infection, such as: -Pneumonia -Skin, Soft Tissue -Endocarditis -UTI -Bone, Joint Infection -Implantable Device -Acute Abdominal Infection -Wound Infection -Meningitis -Blood Stream Catheter Infection -Unknown System Inflammatory Response Syndrome: Not Applicable Respiratory Complaint Exam - Respiratory Complaint/Exam Onset/Duration: 1 week Timing: Intermittent Initial Severity: Mild Current Severity: None Location: Nose, Throat, Chest Character: Reports: Non-productive cough Aggravating: Reports: None Alleviating: Reports: Spontaneous resolution Associated Signs and Symptoms: Reports: URI, Nasal congestion. Denies: Rapid breathing, Dyspnea, Fever, Chills, Chest pain, Pleuritic chest pain, Wheezing, Hemoptysis, Dizziness, Calf pain, Calf swelling, Edema, Hoarseness, Sinus discomfort, Vomiting, Sore throat, Weight loss, Decreased oral intake, Increased thirst, Increased appetite, Increased urination Related History: Reports: Similar episode History of Healthcare-Acquired Pneumonia: Lives at residential Related Surgical History: Reports: None Pulmonary Embolism Risk Factors: Bedrest Cardiac Risk Factors: Reports: CAD, Elevated lipids, Hypertension Pseudomonas Risk Factors: Reports: Chronic Lung Disease Tuberculosis Risk Factors: Reports: Corticosteriod use (short term), Chronic Resp. Faliure (copd ). Denies: Immune deficiency, Malnutrition, Diabetes, Drug addiction, Smoking, Alcohol abuse, Incarceration, Gastrectomy, Close contact w/ TB pt. Status Asthmaticus Risk Factors: Reports: None Home Oxygen Use: Yes (at nights) Recent Stress Test: No Recent Echo/LV Function: No Current Antibiotic Use: Yes (z pack just finished ) Current Asthma Medication Use: No Respiratory Distress: None Inadequate Respiratory Effort: No Dysphagia Present: No Stridor Present: No JVD Present: No Accessory Muscle Use: No Retractions: Not Present Diminished Breath Sounds: No Sinus Tenderness: None Grunting Respirations: No Kussmaul Respirations: No Differential Diagnoses: Pneumonia, Bronchitis, URI, Influenza, Lower Resp. Infection Review of Systems - Review Of Systems Constitutional: Reports: No symptoms Eyes: Reports: No symptoms Ears, Nose, Mouth, Throat: Reports: No symptoms Respiratory: Reports: Cough Cardiac: Reports: No symptoms GI: Reports: No symptoms : Reports: No symptoms Musculoskeletal: Reports: No symptoms Skin: Reports: No symptoms Neurological: Reports: No symptoms Endocrine: Reports: No symptoms Hematologic/Lymphatic: Reports: No symptoms All Other Systems: Reviewed and Negative Past Medical History - Past Medical History Endocrine: Reports: Hypothyroid, Dyslipidemia Cardiovascular: Reports: CAD, Hypertension Respiratory: Reports: COPD (on home oxygen ) Hematological: Reports: None Gastrointestinal: Reports: GERD Genitourinary: Reports: None Neuro/Psych: Reports: Anxiety, Depression Musculoskeletal: Reports: Arthritis Cancer: Reports: None Last Menstrual Period: unknown - Surgical History General Surgical History: Reports: Stent Placement, Other (ovarian Cyst ) - Family History Family History: Reports: None - Social History Smoking Status: Former smoker Hx Substance Use: No Alcohol Screening: None Physical Exam - Physical Exam Appearance: Well-appearing, No pain distress, Well-nourished Eyes: DICK, EOMI, Conjunctiva clear ENT: Ears normal, Nose normal, Oropharynx normal Respiratory: Airway patent, Breath sounds clear, Breath sounds equal, Respirations nonlabored Cardiovascular: RRR, Pulses normal, No rub, No murmur GI/: Soft, Nontender, No masses, Bowel sounds normal, No Organomegaly Musculoskeletal: Normal strength, ROM intact, No edema, No calf tenderness Skin: Warm, Dry, Normal color Neurological: Sensation intact, Motor intact, Reflexes intact, Cranial nerves intact, Alert, Oriented Psychiatric: Affect appropriate, Mood appropriate Interpretation - Radiology Interpretation Radiology Interpretation By: Radiologist Radiology Results: No acute changes Critical Care Note - Critical Care Note Total Time (mins): 0 Course - Course Hematology/Chemistry: 07/09/17 14:40 07/09/17 14:40 Orders, Labs, Meds: Lab Review 07/09/17 07/09/17 07/09/17 14:34 14:40 14:40 WBC 6.81 RBC 3.93 L Hgb 12.2 Hct 37.2 MCV 94.7 MCH 31.0 MCHC 32.8 RDW Coeff of Nataliya 14.3 Plt Count 148 Immature Gran % (Auto) 0.7 Neut % (Auto) 57.7 Lymph % (Auto) 29.5 [place] % (Auto) 9.3 Eos % (Auto) 2.2 Baso % (Auto) 0.6 Immature Gran # (Auto) 0.1 Neut # (Auto) 3.9 Lymph # (Auto) 2.0 [place] # (Auto) 0.6 Eos # (Auto) 0.2 Baso # (Auto) 0.0 Puncture Site Rrad O2 Saturation 93.0 L ABG pH 7.468 H ABG pCO2 34.4 L ABG pO2 62.0 L ABG HCO3 24.9 ABG Total CO2 26 ABG Base Excess 1 Micheal Test + FiO2 % 21.0 Sodium 135 L Potassium 4.2 Chloride 103 Carbon Dioxide 23 Anion Gap 13.2 BUN 26 H Creatinine 1.15 Estimated GFR (MDRD) 45.00 BUN/Creatinine Ratio 22.60 Glucose 92 Calcium 9.9 Total Bilirubin 0.9 AST 32 ALT 29 Alkaline Phosphatase 37 L Total Protein 6.5 Albumin 3.6 Globulin 2.9 Albumin/Globulin Ratio 1.24 Influ A Molecular Assay Influ B Molecular Assay 07/09/17 15:03 WBC RBC Hgb Hct MCV MCH MCHC RDW Coeff of Nataliya Plt Count Immature Gran % (Auto) Neut % (Auto) Lymph % (Auto) [place] % (Auto) Eos % (Auto) Baso % (Auto) Immature Gran # (Auto) Neut # (Auto) Lymph # (Auto) [place] # (Auto) Eos # (Auto) Baso # (Auto) Puncture Site O2 Saturation ABG pH ABG pCO2 ABG pO2 ABG HCO3 ABG Total CO2 ABG Base Excess Micheal Test FiO2 % Sodium Potassium Chloride Carbon Dioxide Anion Gap BUN Creatinine Estimated GFR (MDRD) BUN/Creatinine Ratio Glucose Calcium Total Bilirubin AST ALT Alkaline Phosphatase Total Protein Albumin Globulin Albumin/Globulin Ratio Influ A Molecular Assay Negative by naat Influ B Molecular Assay Negative by naat Orders Category Date Time Status ABG DRAW REQUEST Stat CARDIO 07/09/17 14:34 Ordered ABG Stat LAB 07/09/17 14:34 Completed CBC W/ AUTO DIFF Stat LAB 07/09/17 14:40 Completed COMPREHENSIVE METABOLIC PANEL Stat LAB 07/09/17 14:40 Received FLU A/B MOLECULAR Stat LAB 07/09/17 15:[address] CHEST W/O CONTRAST Stat RADS 07/09/17 15:02 Ordered Vital Signs: Temp Pulse Resp BP Pulse Ox 07/09/17 13:35 97.9 F 65 20 127/57 L 93 L Departure - Departure Time of Disposition: 16:07 (COPD AND LABS AND CT DISCUSSED AT [facility] LABS AND ABG DISCUSSED IN DETAIL PRESENT RAFAEL KANG) Disposition: HOME SELF-CARE Discharge Problem: COPD (chronic obstructive pulmonary disease) Qualifiers: COPD type: unspecified COPD Qualified Code(s): J44.9 - Chronic obstructive pulmonary disease, unspecified Instructions: COPD (Chronic Obstructive Pulmonary Disease) (ED) Condition: Good Pt referred to PMD for follow-up: Yes IPMP verified?: No Additional Instructions: Please call your Family Physician as soon as possible to schedule a follow-up appointment. Allergies/Adverse Reactions: Allergies propoxyphene HCl [From Darvon] Adverse Reaction (Verified 07/09/17 13:49) Home Medications: Ambulatory Orders Alprazolam [Alprazolam Odt] 0.5 mg PO TID PRN 10/05/12 Ferrous Sulfate 325 mg PO BID 10/05/12 Lisinopril [Zestril] 20 mg PO DAILY 10/05/12 Sertraline HCl 100 mg PO DAILY 10/05/12 Warfarin Sodium [Coumadin] 2 mg PO DAILY 10/05/12 Loratadine [Claritin] 10 mg PO DAILY 08/10/16 Hydrocodone/Acetaminophen [Hydrocodon-Acetaminophen 5-325] 1 tab PO TID PRN Atorvastatin Calcium [Lipitor] 40 mg PO BEDTIME 07/09/17 Calcium Carbonate [Calcium] 600 mg PO BID 07/09/17 Cetirizine HCl [Zyrtec] 10 mg PO DAILY 07/09/17 Fenofibrate [Triglide] 54 mg PO DAILY 07/09/17 Gabapentin [Neurontin] 100 mg PO TID 07/09/17 Guaifenesin [Chest Congestion Relief] 400 mg PO Q4HR PRN 07/09/17 Levothyroxine Sodium 75 mcg PO DAILY 07/09/17 Triamterene/Hydrochlorothiazid [Triamterene-Hctz 37.5-25 mg Cp] 1 - 3 each PO WEEKLY PRN 07/09/17
== END 2017-07-09 16:15 | disposition home or self-care (01) ==
LOC: ED 13:34
DX: J44.9 Chronic obstructive pulmonary disease, unspecified (principal); I25.10 Atherosclerotic heart disease of native coronary artery without angina pectoris; I10 Essential (primary) hypertension; E78.5 Hyperlipidemia, unspecified; E03.9 Hypothyroidism, unspecified; Z79.899 Other long term (current) drug therapy; Z79.01 Long term (current) use of anticoagulants
CPT/HCPCS: 36415; 80053; 82803; 85025; 87502; 99283

== ENCOUNTER 2018-09-15 12:49 | Outpatient (CLI) | END 2018-09-15 12:50 | disposition home or self-care (01) | LOC: CAR 12:49 | PROVIDERS: ATTEND Internal Medicine | DX: R06.02 Shortness of breath (principal) | CPT/HCPCS: 94761 ==

== ENCOUNTER 2018-11-12 14:51 | Outpatient (CLI) ==
--- NOTE | 2018-11-12 16:46 | CT ---
EXAM: CT lumbar spine without contrast HISTORY: Back pain COMPARISON: None TECHNIQUE: CT lumbar spine performed without intravenous contrast. Coronal and sagittal reformatted images obtained. FINDINGS: Bones appear demineralized. Vertebral bodies normal height. No acute fracture. No sublu xation. Mild endplate depression superior endplate of three with chronic features. Multilevel Schmo rl's node formation. Multilevel marginal osteophyte formation. Sacroiliac joints intact with mild d egenerative change. IVC filter. 4 mm right renal calculus. Focal ectasia infrarenal abdominal aort a measures up to 2.7 cm. Extensive atherosclerosis. T12-L1: No central canal or neural foraminal narrowing. L1-S2: No central canal or neural foraminal narrowing. L2-L3: No central canal or neural foraminal narrowing. L3-L4: Posterior disc osteophyte complex and facet arthrosis causing mild bilateral neural foraminal narrowing. L4-L5: Posterior disc osteophyte complex and facet arthrosis causing mild central canal and mild to moderate bilateral neural foraminal narrowing. L5-S1: Posterior disc osteophyte complex and facet arthrosis causing moderate right and mild to mode rate left neural foraminal narrowing. IMPRESSION: 1. No acute fracture or subluxation. 2. Chronic discogenic degenerative disease and facet arthrosis. Please see segmental analysis, noti ng multilevel central canal and neural foraminal narrowing. 3. Mild chronic endplate depression of three with chronic features. 4. Ectasia infrarenal abdominal aorta measuring 2.7 cm. Extensive atherosclerosis.
--- NOTE | 2018-11-12 17:04 | CT ---
EXAM: CT thoracic spine without contra HISTORY: Back pain COMPARISON: None TECHNIQUE: CT thoracic spine performed without intravenous contrast. Coronal and sagittal reformatt ed images obtained. FINDINGS: Bones appear demineralized. Mild chronic compression deformity T7. No acute fracture. N o subluxation. Mild multilevel chronic discogenic degenerative disease with intervertebral disc spac e narrowing, marginal osteophyte formation, and Schmorl's node formation. Posterior disc osteophyte complex with central protrusion suggested at T9-T10 causing mild to moderate central canal narrowing. Moderate emphysema. Trace right pleural effusion. Interlobular septal thickening. Granulomatous calcification. IMPRESSION: 1. No acute fracture or subluxation. 2. Chronic discogenic degenerative disease. Posterior disc osteophyte complex with central protrusi on suggested at T9-C10 causing mild to moderate central canal narrowing. Findings can be correlate w ith MRI. 3. Mild chronic compression deformity T7. 4. Trace right pleural effusion. Emphysema. Interlobular septal thickening may relate to interstit ial edema and/or interstitial change from emphysema.
== END 2018-11-12 14:52 | disposition home or self-care (01) ==
LOC: RAD 14:51
PROVIDERS: ATTEND Internal Medicine
DX: M54.9 Dorsalgia, unspecified (principal)

== ENCOUNTER 2019-03-22 08:10 | Inpatient (IN) ==
[2019-03-22] MEDS ORDERED: DUONEB NEB STA (08:26)
[2019-03-22] MEDS ORDERED: ROCEPHIN 1 GM/50 ML D5W 1 GM/50 ML BAG IV STA (08:40)
[2019-03-22] MEDS ORDERED: SOLU-MEDROL 40 MG IVP STA (08:40)
--- NOTE | 2019-03-22 08:40 | ED.PDOC ---
General ED Provider: Dr. DAVI PAULINO Chief Complaint: Respiratory Complaint Stated Complaint: SHORTNESS OF BREATH Time Seen by Physician: 08:30 Mode of Arrival: Ambulance Information Source: Patient and Family Primary Care Provider: BIJAN ROWE Nursing and Triage Documentation Reviewed and Agree: Yes Does patient meet sepsis criteria?: No If yes, has appropriate treatment been initiated?: No System Inflammatory Response Syndrome: Not Applicable Sepsis Protocol: For patient's 13 years and over: Temp is 96.8 and below OR 101 and greater Pulse >90 BPM Resp >20/minute Acutely Altered Mental Status Are patient's symptoms suggestive of a new infection, such as: -Pneumonia -Skin, Soft Tissue -Endocarditis -UTI -Bone, Joint Infection -Implantable Device -Acute Abdominal Infection -Wound Infection -Meningitis -Blood Stream Catheter Infection -Unknown Respiratory Complaint Exam Shortness of Air Complaint/Exam Onset/Duration: 2 DAYS AGO Symptoms Are: Still present Timing: Constant (ON HOME O2 AT NIGHT AT 2 L . NIGHTS ONLY) Initial Severity: Moderate Current Severity: Severe (PER MISAEL HURD) Character: Reports Dyspnea on exertion; Denies Orthopnea Aggravating: Reports Movement and URI Alleviating: Reports None Associated Signs and Symptoms: Reports Cough (PHLEM CLEAR) and Decreased intake; Denies Wheezing, Chest pain with cough, Chest pain, Fever, Chills, Diaphoresis, Nasal congestion, Dizziness, Calf pain, Calf swelling, Edema, Rapid breathing and Labored breathing Related History: Reports Similar episode History of Healthcare-Acquired Pneumonia: No (LIVES WITH FAMILY NO RECENT HOSPITALIZATIONS) Pulmonary Embolism Risk Factors: Reports None Cardiac Risk Factors: Reports None (COPD , ), CAD (STENT IN THE LEGS ), Elevated lipids, Hypertension and CHF; Denies Prior [place], Smoking and Diabetes Pseudomonas Risk Factors: Reports Chronic Lung Disease (COPD ); Denies Repeat Antibx in 3 months and Chronic steriod use Tuberculosis Risk Factors: Reports Chronic Resp. Faliure Home Oxygen Use: Yes Home Peak Flow: Recent personal best (NONE DONE AT HOME) Recent Stress Test: No Recent Echo/LV Function: No Respiratory Distress: Mild (TO [place]TE) Stridor Present: No Tracheal Deviation: No Subcutaneous Emphysema: No Accessory Muscle Use: No Retractions: Not Present Diminished Breath Sounds: No Prolonged Expiratory Phase: No Unable to Speak Full Sentences: No Fatigue: No Leg Swelling: No Ange's Sign Present: No Grunting Respirations: No Kussmaul Respirations: No Differential Diagnoses: CHF, Pulmonary Edema, COPD Exacerbation, [place], Pneumonia, Bronchitis, Bronchospasm and URI Quality Indicators for AMI: EKG in 10min. Quality Indicators for Cardiac Chest Pain: EKG in 10min. Quality Indicator For Non-Traumatic Chest Pain/Syncope: EKG Performed Quality Indicators For Pneumonia/CAP: SpO2 assessed, Vital signs and Mental status assessed Related Surgical History: Reports None Review of Systems Review Of Systems Constitutional: Reports Malaise, Weakness and Loss of appetite Eyes: Reports No symptoms Ears, Nose, Mouth, Throat: Reports No symptoms Respiratory: Reports Cough, Short of air and Wheezing Cardiac: Reports No symptoms GI: Reports No symptoms : Reports No symptoms Musculoskeletal: Reports No symptoms Skin: Reports No symptoms Neurological: Reports No symptoms Endocrine: Reports No symptoms All Other Systems: Reviewed and Negative [facility] Social History Smoking and tobacco status: Former smoker History of recent travel: No Female Reproductive History Menstrual Hx Hysterectomy: No Physical Exam Physical Exam Appearance: Ill-appearing Ill-appearing: Mild Pain Distress: Mild Eyes: DICK, EOMI and Conjunctiva clear ENT: Ears normal, Nose normal and Oropharynx normal Neck: Supple Respiratory: Rhonchi Cardiovascular: RRR, Pulses normal, No rub and No murmur GI/: Soft, Nontender, No masses, Bowel sounds normal and No Organomegaly Musculoskeletal: Normal strength, ROM intact, No edema and No calf tenderness Skin: Warm, Dry and Normal color Neurological: Sensation intact, Motor intact, Reflexes intact, Cranial nerves intact, Alert and Oriented Psychiatric: Affect appropriate and Mood appropriate Interpretation Rotary Engraver Rate: Normal Rhythm: Sinus Ectopy: None EKG Interpretation Rate: Normal Rhythm: Sinus Ectopy: None [place]: NL ST Segment: Normal Interpretation: T WAVE INVERSIONS V2,V3 Critical Care Note Critical Care Note Total Time (mins): 0 Course Course Hematology/Chemistry: 03/22/19 08:45 03/22/19 08:45 Orders, Labs, Meds: Lab Review 03/22/19 03/22/19 03/22/19 08:28 08:45 08:45 WBC 8.90 RBC 4.16 L Hgb 12.8 Hct 39.0 MCV 93.8 MCH 30.8 MCHC 32.8 RDW Coeff of Nataliya 14.2 Plt Count 107 L Immature Gran % (Auto) 0.2 Neut % (Auto) 74.5 Lymph % (Auto) 18.3 [place] % (Auto) 6.3 Eos % (Auto) 0.4 Baso % (Auto) 0.3 Immature Gran # (Auto) 0.0 Neut # (Auto) 6.6 Lymph # (Auto) 1.6 [place] # (Auto) 0.6 Eos # (Auto) 0.0 Baso # (Auto) 0.0 PT INR APTT Puncture Site Rbrach O2 Saturation 79.0 L ABG pH 7.461 H ABG pCO2 31.1 L ABG pO2 40.0 L* ABG HCO3 22.2 ABG Total CO2 23 ABG Base Excess -2 O2 Delivery Device FiO2 % 21.0 Sodium Potassium Chloride Carbon Dioxide Anion Gap BUN Creatinine Estimated GFR (MDRD) BUN/Creatinine Ratio Glucose Lactic Acid Calcium Total Bilirubin AST ALT Alkaline Phosphatase Total Creatine Kinase Troponin I Total Protein Albumin Globulin Albumin/Globulin Ratio Procalcitonin < 0.05 Influ A Molecular Assay Influ B Molecular Assay 03/22/19 03/22/19 03/22/19 08:45 08:45 08:45 WBC RBC Hgb Hct MCV MCH MCHC RDW Coeff of Nataliya Plt Count Immature Gran % (Auto) Neut % (Auto) Lymph % (Auto) [place] % (Auto) Eos % (Auto) Baso % (Auto) Immature Gran # (Auto) Neut # (Auto) Lymph # (Auto) [place] # (Auto) Eos # (Auto) Baso # (Auto) PT 24.4 H INR 2.63 APTT 42.3 H Puncture Site O2 Saturation ABG pH ABG pCO2 ABG pO2 ABG HCO3 ABG Total CO2 ABG Base Excess O2 Delivery Device FiO2 % Sodium 135.2 Potassium 3.89 Chloride 104.8 Carbon Dioxide 23.8 Anion Gap 10.49 BUN 24.1 H Creatinine 1.14 Estimated GFR (MDRD) 45.00 BUN/Creatinine Ratio 21.14 Glucose 120.8 H Lactic Acid 1.02 Calcium 9.76 Total Bilirubin 1.25 AST 27.8 ALT 19.8 Alkaline Phosphatase 69.5 Total Creatine Kinase 68.6 Troponin I 0.102 Total Protein 6.96 Albumin 4.11 Globulin 2.85 Albumin/Globulin Ratio 1.44 Procalcitonin Influ A Molecular Assay Influ B Molecular Assay 03/22/19 03/22/19 09:00 10:38 WBC RBC Hgb Hct MCV MCH MCHC RDW Coeff of Nataliya Plt Count Immature Gran % (Auto) Neut % (Auto) Lymph % (Auto) [place] % (Auto) Eos % (Auto) Baso % (Auto) Immature Gran # (Auto) Neut # (Auto) Lymph # (Auto) [place] # (Auto) Eos # (Auto) Baso # (Auto) PT INR APTT Puncture Site Rbrach O2 Saturation 89.0 L ABG pH 7.390 ABG pCO2 36.5 ABG pO2 56.0 L* ABG HCO3 22.1 ABG Total CO2 23 ABG Base Excess -3 L O2 Delivery Device Vapotherm FiO2 % 44.0 Sodium Potassium Chloride Carbon Dioxide Anion Gap BUN Creatinine Estimated GFR (MDRD) BUN/Creatinine Ratio Glucose Lactic Acid Calcium Total Bilirubin AST ALT Alkaline Phosphatase Total Creatine Kinase Troponin I Total Protein Albumin Globulin Albumin/Globulin Ratio Procalcitonin Influ A Molecular Assay Negative by naat Influ B Molecular Assay Negative by naat Orders Category Date Time Status ABG DRAW REQUEST Stat CARDIO 03/22/19 08:29 Completed ABG DRAW REQUEST Stat CARDIO 03/22/19 10:38 Completed EKG-(ED ONLY) Stat CARDIO 03/22/19 08:24 Completed EKG-(IP & OP ONLY) DAILY CARDIO 03/24/19 06:00 Ordered EKG-(IP & OP ONLY) DAILY CARDIO 03/25/19 06:00 Ordered EKG-(IP & OP ONLY) DAILY CARDIO 03/23/19 06:00 Ordered NEBULIZER TREATMENT Routine CARDIO 03/22/19 10:51 Ordered NEBULIZER TREATMENT Stat CARDIO 03/22/19 08:26 Completed ACTIVITY .Complete BR CARE 03/22/19 10:49 Ordered INTAKE & OUTPUT Q8HR CARE 03/22/19 10:49 Ordered VITAL SIGNS Q4HR CARE 03/22/19 10:49 Ordered REGULAR DIET DIETARY 03/22/19 Lunch Ordered ED IV/MEDIPORT/POWERPORT .ONCE EMERGENCY 03/22/19 08:28 Active ABG Stat LAB 03/22/19 08:28 Completed ABG Stat LAB 03/22/19 10:38 Completed BLOOD CULTURE Stat LAB 03/22/19 10:40 Received CBC W/ AUTO DIFF DAILY@0600 LAB 03/24/19 06:00 Ordered CBC W/ AUTO DIFF DAILY@0600 LAB 03/23/19 06:00 Ordered CBC W/ AUTO DIFF Stat LAB 03/22/19 08:45 Completed COMPREHENSIVE METABOLIC PANEL DAILY@0600 LAB 03/24/19 06:00 Ordered COMPREHENSIVE METABOLIC PANEL DAILY@0600 LAB 03/23/19 06:00 Ordered COMPREHENSIVE METABOLIC PANEL Stat LAB 03/22/19 08:45 Completed CREATINE KINASE Q8H LAB 03/22/19 17:00 Ordered CREATINE KINASE Q8H LAB 03/23/19 01:00 Ordered CREATINE KINASE Stat LAB 03/22/19 08:45 Completed FLU A/B MOLECULAR Stat LAB 03/22/19 09:00 Completed FREE T4 (FREE THYROXINE) Stat LAB 03/22/19 10:49 Ordered LACTIC ACID Stat LAB 03/22/19 08:45 Completed MOLECULAR GROUP A STREP Stat LAB 03/22/19 09:00 Completed PARTIAL THROMBOPLASTIN TIME Stat LAB 03/22/19 08:45 Completed PROCALCITONIN Stat LAB 03/22/19 08:45 Completed PT WITH INR Stat LAB 03/22/19 08:45 Completed THYROID STIMULATING HORMONE Stat LAB 03/22/19 10:49 Ordered TROPONIN I Q8H LAB 03/22/19 17:00 Ordered TROPONIN I Q8H LAB 03/23/19 01:00 Ordered TROPONIN I Stat LAB 03/22/19 08:45 Completed 0.9 % Sodium Chloride [Saline Flush] MEDS 03/22/19 08:28 Active 1 syr IVF PRN PRN 1 gm/50 ml IV Daily Ekaterina MEDS 03/23/19 09:00 Ordered Ceftriaxone/D5w 1 gm Premix [Rocephin 1 gm/50 ml D5w] 1 gm in 50 ml IV DAILY Atorvastatin Calcium [Lipitor] MEDS 03/22/19 21:00 Ordered 40 mg PO BEDTIME Azithromycin Inj [Zithromax] 500 mg MEDS 03/22/19 10:48 Ordered 0.9 % Sodium Chloride [Sodium Chloride] 250 ml IV ONCE Ceftriaxone/D5w 1 gm Premix [Rocephin 1 gm/50 ml D5w] MEDS 03/22/19 08:40 Discontinued 1 gm in 50 ml IV ONCE Escitalopram Oxalate [Lexapro] MEDS 03/23/19 09:00 Ordered 10 mg PO DAILY Furosemide [Lasix Tab] MEDS 03/22/19 11:00 Ordered 20 mg PO DIRECTED Gabapentin [Neurontin] MEDS 03/22/19 15:00 Ordered 100 mg PO TID Hydrocodone Bit/Acetaminophen [[place] 5-325] MEDS 03/22/19 10:46 Ordered 1 tab PO TID PRN Ipratropium/Albuterol Neb [Duoneb] MEDS 03/22/19 08:26 Discontinued 3 ml NEB ONCE STA Ipratropium/Albuterol Neb [Duoneb] MEDS 03/22/19 12:00 Ordered 3 ml NEB RTQ6H Levothyroxine Sodium [Synthroid] MEDS 03/23/19 09:00 Ordered 75 mcg PO DAILY Lisinopril [Zestril] MEDS 03/23/19 09:00 Ordered 20 mg PO DAILY Methylprednisolone Sod Succ/Pf [Solu-Medrol 40 mg] MEDS 03/22/19 08:40 Discont inued 40 mg IVP ONCE STA Methylprednisolone Sod Succ/Pf [Solu-Medrol 40 mg] MEDS 03/22/19 21:00 Ordered 40 mg IVP Q12HR Potassium Chloride [Micro-K Cap] MEDS 03/22/19 11:00 Ordered 10 meq PO DIRECTED Sodium Chloride 0.9% [Sodium Chloride] 1,000 ml MEDS 03/22/19 11:00 Ordered IV 75 mls/hr Warfarin Sodium [Coumadin] MEDS 03/23/19 09:00 Ordered 4 mg PO DAILY alprazolam MEDS 03/22/19 10:46 Ordered 0.5 mg PO TID PRN calcium carbonate-vitamin D3 [Calcium 600 + D(3)] MEDS 03/22/19 21:00 Ordered 1 cap PO BID ferrous sulfate MEDS 03/22/19 21:00 Ordered [address] CHEST W/O CONTRAST Stat RADS 03/22/19 08:24 Completed Medications Generic Name Dose Route Start Last Admin Trade Name Freq PRN Reason Stop Dose Admin Hydrocodone Bitart/Acetaminophen 1 tab 03/22/19 10:46 [place] 5-325 PO TID PRN Analgesia Atorvastatin Calcium 40 mg 03/22/19 21:00 Lipitor PO BEDTIME EKATERINA Escitalopram Oxalate 10 mg 03/23/19 09:00 Lexapro PO DAILY EKATERINA Furosemide 20 mg 03/22/19 11:00 Lasix Tab PO DIRECTED EKATERINA Gabapentin 100 mg 03/22/19 15:00 Neurontin PO TID EKATERINA Azithromycin 500 mg/ Sodium 250 mls @ 125 mls/hr 03/22/19 10:48 Chloride IV 03/22/19 12:47 ONCE STA Levothyroxine Sodium 75 mcg 03/23/19 09:00 Synthroid PO DAILY EKATERINA Lisinopril 20 mg 03/23/19 09:00 Zestril PO DAILY EKATERINA Non-Formulary Medication 1 cap 03/22/19 21:00 Calcium Carbonate-Vitamin D3 [Calcium 600 + D(3)] PO BID EKATERINA Non-Formulary Medication 0.5 mg 03/22/19 10:46 Alprazolam PO TID PRN Anxiety Non-Formulary Medication 325 mg 03/22/19 21:00 Ferrous Sulfate PO BID EKATERINA Potassium Chloride 10 meq 03/22/19 11:00 Micro-K Cap PO 3 TIMES PER WEEK PRN GIVE WITH LASIX Sodium Chloride 1 syr 03/22/19 08:28 03/22/19 09:01 Saline Flush IVF 1 syr PRN PRN Administration To flush IV Warfarin Sodium 4 mg 03/23/19 09:00 Coumadin PO DAILY EKATERINA Discontinued Medications Generic Name Dose Route Start Last Admin Trade Name Freq PRN Reason Stop Dose Admin Albuterol/Ipratropium 3 ml 03/22/19 08:26 03/22/19 08:35 Duoneb NEB 03/22/19 08:27 3 ml ONCE STA Administration CEFTRIAXONE/D5W 1 GM PREMIX 1 gm in 50 mls @ 75 mls/hr 03/22/19 08:40 03/22/19 08:59 Rocephin 1 Gm/50 Ml D5w IV 03/22/19 09:19 75 mls/hr ONCE STA Administration Methylprednisolone Sodium Succinate 40 mg 03/22/19 08:40 03/22/19 08:59 Solu-Medrol 40 Mg IVP 03/22/19 08:41 40 mg ONCE STA Administration Vital Signs: Temp Pulse Resp BP Pulse Ox 03/22/19 10:00 92 L 03/22/19 09:38 93 L 03/22/19 08:12 99.0 F 82 20 134/64 92 L Discharge Plan Discharge Patient Disposition: ADMITTED INPATIENT Discharge Problem: COPD exacerbation, Pneumonia Prescriptions: No Action warfarin [Coumadin] 3 MG tablet 4 mg PO DAILY RF: 0 lisinopril 10 MG tablet 20 mg PO DAILY RF: 0 ferrous sulfate 325 MG tablet,delayed release (DR/EC) 325 mg PO BID RF: 0 alprazolam 0.25 MG tablet,disintegrating 0.5 mg PO TID PRN (Reason: Anxiety) RF: 0 potassium chloride 10 mEq Tablet Extended Release 10 meq PO DIRECTED RF: 0 furosemide 20 mg Tablet 20 mg PO DIRECTED RF: 0 escitalopram oxalate [Lexapro] 10 mg Tablet 10 mg PO DAILY RF: 0 Calcium 600 + D(3) 600 mg calcium- 200 unit Capsule 1 cap PO BID RF: 0 loratadine [Claritin Liqui-Gel] 10 MG capsule 10 mg PO DAILY RF: 0 hydrocodone-acetaminophen 1 EACH tablet 1 tab PO TID PRN (Reason: pain) RF: 0 atorvastatin [Lipitor] 40 MG tablet 40 mg PO BEDTIME RF: 0 levothyroxine 75 MCG tablet 75 mcg PO DAILY RF: 0 gabapentin 100 MG capsule 100 mg PO TID RF: 0 Zyrtec 10 MG capsule 10 mg PO DAILY RF: 0 ED Provider: DAVI PAULINO Condition: Stable
--- NOTE | 2019-03-22 09:49 | CT ---
EXAM: CT chest without contrast HISTORY: Shortness of breath, on home oxygen, low pulse ox COMPARISON: 07/09/2017 TECHNIQUE: Multiple axial images of the chest were obtained without contrast. Images were reformatte d in the sagittal and coronal planes. FINDINGS: Motion artifact degrades exam. Normal thoracic inlet. No enlarged axillary, mediastinal or definite hilar lymph nodes, within limits of noncontrast exam. Normal heart size. No pericardial effusion. Normal diameter aorta. Coronary artery and aortic atherosclerotic calcifications. Patent central a irways. Similar moderate upper lobe predominant centrilobular emphysematous change. Dependent bilat eral lower lobe patchy consolidation. Remaining lungs are clear. No pneumothorax or pleural effusio n. No suspicious pulmonary nodule/mass. Bilateral calcified granulomas. No acute findings within the visualized upper abdomen. Small hiatal hernia. No acute osseous abnormal ity. Mild thoracic spondylosis, similar to prior exam. IMPRESSION: 1. Dependent bilateral lower lobe consolidations, which may represent atelectasis and/or pneumonia. 2. Moderate emphysema. 3. Atherosclerosis.
[2019-03-22] MEDS ORDERED: NON-FORMULARY MEDICATION (Alprazolam 0.5 MG) PO PRN (10:46)
[2019-03-22] MEDS ORDERED: ZITHROMAX 500 MG in SODIUM CHLORIDE 250 ML IV STA (10:48)
[2019-03-22] MEDS ORDERED: MICRO-K CAP PO PRN (11:00)
[2019-03-22] MEDS ORDERED: LASIX TAB PO PRN (11:00)
[2019-03-22] MEDS: SODIUM CHLORIDE 1,000 ML IV SCH (11:15)
[2019-03-22] MEDS: DUONEB NEB SCH ×3 (11:45→23:15)
[2019-03-22 11:59] VITALS: BMI 24.0
[2019-03-22] MEDS: NEURONTIN PO SCH ×2 (14:24→20:46)
[2019-03-22] MEDS: COUMADIN PO SCH (17:46)
[2019-03-22] MEDS: FERROUS SULFATE PO SCH (20:46)
[2019-03-22] MEDS: CALCIUM 500 + VIT D 200 MG TABLET PO SCH (20:47)
[2019-03-22] MEDS ORDERED: CALCIUM CARBONATE VITAMIN D3 PO SCH (21:00)
[2019-03-22] MEDS ORDERED: LIPITOR PO SCH (21:00)
[2019-03-22] MEDS ORDERED: SOLU-MEDROL 40 MG IVP SCH (21:00)
[2019-03-22] MEDS ORDERED: NON-FORMULARY MEDICATION (Ferrous Sulfate 325 MG) PO SCH (21:00)
[2019-03-22] MEDS: XANAX PO PRN (21:53)
[2019-03-22] MEDS: NORCO 5-325 PO PRN (21:53)
[2019-03-23 01:25] LABS: HEMATOCRIT 36.7 % (37.0-47.0)
[2019-03-23] MEDS: SODIUM CHLORIDE 1,000 ML IV SCH ×3 (03:45→20:24)
[2019-03-23] MEDS: DUONEB NEB SCH ×4 (05:00→23:10)
[2019-03-23] MEDS: SYNTHROID PO SCH (06:25)
[2019-03-23] MEDS: XANAX PO PRN ×2 (07:37→17:53)
[2019-03-23] MEDS ORDERED: COUMADIN PO SCH (09:00)
[2019-03-23] MEDS ORDERED: SOLU-MEDROL 40 MG IVP SCH (09:00)
--- NOTE | 2019-03-23 09:30 | PCM.PROG ---
Attending Provider: ATTENDING PROVIDER: Dr. BIJAN ROWE This patient is seen with Lois Sarah, Nurse Practitioner. DATE OF SERVICE: 03/23/19 SUBJECTIVE: This 83 year old /WHITE F was hospitalized 03/22/19. The patient is sitting in bed resting comfortably. Shortness of breath slightly improved. She has been able to wean some on the Vapotherm. ABGs are significantly improved from yesterday. REVIEW OF SYSTEMS: CONSTITUTIONAL: No night sweats. No fatigue, malaise, lethargy. No fever or chills. HEENT: Eyes: No visual changes. No eye pain. No eye discharge. ENT: No runny nose. No epistaxis. No sinus pain. No odynophagia. No congestion. RESPIRATORY: Positive for cough and shortness of breath. No hemoptysis. CARDIOVASCULAR: No angina symptoms. No CHF symptoms. No atypical chest pain for CAD. No palpitations. No orthopnea.. GASTROINTESTINAL: No abdominal pain. No nausea or vomiting. No diarrhea or constipation. No hematemesis. No hematochezia. GENITOURINARY: No urgency. No frequency. No dysuria. No hematuria. No obstructive symptoms. No discharge. No pain. No significant abnormal bleeding. MUSCULOSKELETAL: No musculoskeletal pain; no joint swelling. NEUROLOGICAL: Awake, alert, oriented to time, place and person. No headache. No neck pain. No syncope. No seizures. No dizziness. PSYCHIATRIC: Not anxious. No depression. No suicidal thoughts. No homicidal thoughts. SKIN: No rash. No lesions. No wounds. ENDOCRINE: No unexplained weight loss. No weight gain. HEMATOLOGIC/LYMPHATIC: No anemia. No purpura. No petechiae. No prolonged or excessive bleeding. No palpable lymph nodes. PHYSICAL EXAMINATION: GENERAL: The patient is awake, alert and oriented, lying/sitting in bed in no distress. VITAL SIGNS: Temperature 97.6 F, Pulse 58, Respiratory Rate 17, BP 136/63, Pulse Ox 98% HEENT: Head normocephalic, atraumatic. Eyes: Extraocular muscles are intact. Pupils are equal, round and reactive to light and accommodation. Ears: No lesions. Nose appeared normal. Throat: No exudate or erythema. NECK: Supple. No JVD, no carotid bruit. No lymphadenopathy or thyromegaly. LUNGS: Severely diminished breath sounds. Clear to auscultation. Percussion note normal. Chest symmetrical. HEART: S1, S2, no S3. No murmurs. No cyanosis or clubbing. No ascites. Pulses: Dorsalis pedis and posterior tibial pulses +1 to +2 both sides. ABDOMEN: Soft. Non-tender. Bowel sounds active. No CVA tenderness. No mass felt. EXTREMITIES: Trace left lower extremity edema. Full range of motion of all extremities, equal. NEUROLOGIC: No focal deficit. Cranial nerves II through XII are grossly intact. No headache, no double vision or headache. SKIN: Not dry. Intact. Turgor-normal. LYMPHATIC: No palpable lymph nodes/no lymphedema. MUSCULOSKELETAL: Normal joints with no swelling. Muscle tone is normal. LAB REVIEW: 03/23/19 01:00 03/23/19 01:00 03/23/19 04:20: Puncture Site Rbrach, O2 Saturation 95.0, ABG pH 7.392, ABG pCO2 34.2 L, ABG pO2 76.0 L, ABG HCO3 20.8 L, ABG Total CO2 22, ABG Base Excess -4 L, Micheal Test +, O2 Delivery Device Vapth, Oxygen Liter Flow 40.00, FiO2 % 40.0 03/23/19 01:00: WBC 6.96, RBC 3.86 L, Hgb 11.9 L, Hct 36.7 L, MCV 95.1, MCH 30.8, MCHC 32.4, RDW Coeff of Nataliya 13.9, Plt Count 107 L, Immature Gran % (Auto) 1.6, Neut % (Auto) 85.7, Lymph % (Auto) 10.6, [place] % (Auto) 2.0, Eos % (Auto) 0.0, Baso % (Auto) 0.1, Immature Gran # (Auto) 0.1, Neut # (Auto) 6.0, Lymph # (Auto) 0.7, [place] # (Auto) 0.1 L, Eos # (Auto) 0.0, Baso # (Auto) 0.0 03/23/19 01:00: Sodium 138.3, Potassium 4.31, Chloride 107.8 H, Carbon Dioxide 24.9, Anion Gap 9.91, BUN 25.2 H, Creatinine 0.99, Estimated GFR (MDRD) 53.00, BUN/Creatinine Ratio 25.45, Glucose 158.8 H, Calcium 9.37, Total Bilirubin 0.55, AST 85.0 H D, ALT 63.3 H D, Alkaline Phosphatase 61.4, Total Creatine Kinase 71.0, Troponin I 0.078, Total Protein 6.49, Albumin 3.70, Globulin 2.79, Albumin/Globulin Ratio 1.32 03/22/19 17:00: Total Creatine Kinase 68.5, Troponin I 0.176 H 03/22/19 10:38: Puncture Site Rbrach, O2 Saturation 89.0 L, ABG pH 7.390, ABG pCO2 36.5, ABG pO2 56.0 L*, ABG HCO3 22.1, ABG Total CO2 23, ABG Base Excess -3 L, O2 Delivery Device Vapotherm, FiO2 % 44.0 03/22/19 09:00: Influ A Molecular Assay Negative by naat, Influ B Molecular Assay Negative by naat 03/22/19 08:45: TSH 2.920 03/22/19 08:45: Free T4 1.18 03/22/19 08:45: PT 24.4 H, INR 2.63, APTT 42.3 H 03/22/19 08:45: Sodium 135.2, Potassium 3.89, Chloride 104.8, Carbon Dioxide 23.8, Anion Gap 10.49, BUN 24.1 H, Creatinine 1.14, Estimated GFR (MDRD) 45.00, BUN/Creatinine Ratio 21.14, Glucose 120.8 H, Calcium 9.76, Total Bilirubin 1.25, AST 27.8, ALT 19.8, Alkaline Phosphatase 69.5, Total Creatine Kinase 68.6, Troponin I 0.102, Total Protein 6.96, Albumin 4.11, Globulin 2.85, Albumin/Globulin Ratio 1.44 03/22/19 08:45: Lactic Acid 1.02 03/22/19 08:45: Procalcitonin < 0.05 03/22/19 08:45: WBC 8.90, RBC 4.16 L, Hgb 12.8, Hct 39.0, MCV 93.8, MCH 30.8, MCHC 32.8, RDW Coeff of Nataliya 14.2, Plt Count 107 L, Immature Gran % (Auto) 0.2, Neut % (Auto) 74.5, Lymph % (Auto) 18.3, [place] % (Auto) 6.3, Eos % (Auto) 0.4, Baso % (Auto) 0.3, Immature Gran # (Auto) 0.0, Neut # (Auto) 6.6, Lymph # (Auto) 1.6, [place] # (Auto) 0.6, Eos # (Auto) 0.0, Baso # (Auto) 0.0 03/22/19 08:28: Puncture Site Rbrach, O2 Saturation 79.0 L, ABG pH 7.461 H, ABG pCO2 31.1 L, ABG pO2 40.0 L*, ABG HCO3 22.2, ABG Total CO2 23, ABG Base Excess - 2, FiO2 % 21.0 ASSESSMENT: Please see below. 1. Bilateral pneumonia. 2. Shortness of breath. 3. Acute respiratory failure - improving. 4. COPD. 5. Severe PAD. 6. Former smoker. PLAN: 1. Zithromax IV 500 mg daily times three more days. 2. Continue Rocephin. 3. Decrease IV fluids to 50 cc/hr. 4. Protonix 40 mg p.o. daily. 5. Continue Duonebs. 6. Solumedrol 100 q.12hr. 7. Will do INR today. 8. Hold Lipitor. Plan and coordination of the patient's care discussed in the presence of Dry Cleaning Manager and nurse. CONDITION: Stable SCRIBED BY: S[employer] scribed while in presence of service performed by Dr. Rowe/Lois Sarah APRN on 03/23/19 ([id number])
[2019-03-23] MEDS: ROCEPHIN 1 GM/50 ML D5W 1 GM/50 ML BAG IV SCH (10:34)
[2019-03-23] MEDS: ZESTRIL PO SCH (10:35)
[2019-03-23] MEDS: NEURONTIN PO SCH ×3 (10:35→20:21)
[2019-03-23] MEDS: PROTONIX PO SCH (10:35)
[2019-03-23] MEDS: LEXAPRO PO SCH (10:35)
[2019-03-23] MEDS: CALCIUM 500 + VIT D 200 MG TABLET PO SCH ×2 (10:35→20:21)
[2019-03-23] MEDS: FERROUS SULFATE PO SCH ×2 (10:36→20:21)
[2019-03-23] MEDS: SOLU-MEDROL 125 MG IVP SCH ×2 (10:36→20:20)
--- NOTE | 2019-03-23 10:57 | HP ---
DATE OF SERVICE: 03/22/19 HISTORY OF PRESENT ILLNESS: This is an 83-year-old white female who presented to the Emergency Room with shortness of breath. She currently lives at home with her daughter. She is a former smoker. PAST MEDICAL HISTORY: Chronic back pain History of falls Chronic leg edema Severe peripheral vascular disease Neuropathy Dyslipidemia Hypertension Peripheral arterial disease - sees Dr. Wharton History of osteoarthritis Hypothyroidism History of DVT in the left leg COPD, oxygen dependent Generalized anxiety disorder CVA with left hemiparesis 2005 Depression Degenerative joint disease History of falls with history of subdural hematoma History of left tib/fib fracture PAST SURGICAL HISTORY: Left CEA Fem/pop on the right in March of 2012 Left angioplasty in 11/2018 REVIEW OF SYSTEMS: CONSTITUTIONAL: No night sweats. No fatigue, malaise, lethargy. No fever or chills. HEENT: Eyes: No visual changes. No eye pain. No eye discharge. ENT: No runny nose. No epistaxis. No sinus pain. No sore throat. No odynophagia. No ear pain. No congestion. RESPIRATORY: Positive for shortness of breath, cough. No hemoptysis. CARDIOVASCULAR: No angina symptoms. No CHF symptoms. No atypical chest pain for CAD. No palpitations. No PND. No orthopnea. GASTROINTESTINAL: No abdominal pain. No nausea or vomiting. No diarrhea or constipation. No hematemesis. No hematochezia. GENITOURINARY: No urgency. No frequency. No dysuria. No hematuria. No obstructive symptoms. No discharge. No pain. No significant abnormal bleeding. MUSCULOSKELETAL: No musculoskeletal pain. No joint swelling. No arthritis. NEUROLOGICAL: No headache. No neck pain. No syncope. No seizures. No dizziness. PSYCHIATRIC: Not anxious. No depression. No suicidal thoughts. No homicidal thoughts. SKIN: No rash. No lesions. No wounds. ENDOCRINE: No unexplained weight loss. No weight gain. HEMATOLOGIC/LYMPHATIC: No anemia. No purpura. No petechiae. No prolonged or excessive bleeding. No palpable lymph nodes. PERSONAL/FAMILY/SOCIAL HISTORY: She is , lives with her daughter. She was a former heavy smoker, has quit for at least the past 15 years. MEDICATIONS: Coumadin 4 mg p.o. daily Lisinopril 20 mg p.o. daily Ferrous Sulfate 325 mg p.o. b.i.d. Alprazolam 0.5 mg p.o. t.i.d. p.r.n. Claritin 10 mg p.o. daily Hydrocodone-Acetaminophen 5-325 mg one tab p.o. t.i.d. p.r.n. Gabapentin 100 mg p.o. t.i.d. Lipitor 40 mg p.o. bedtime Zyrtec 10 mg p.o. daily Levothyroxine 75 mcg p.o. daily Furosemide 20 mg p.o. as directed Lexapro 10 mg p.o. daily Potassium Chloride 10 mEq p.o. as directed Calcium Carbonate-Vitamin D3 one cap p.o. b.i.d. ALLERGIES: PROPOXYPHENE PHYSICAL EXAMINATION: VITAL SIGNS: Temperature 99, heart rate 82, respiratory rate 20, BP 134/64, pulse ox 92%. HEENT: Head normocephalic, atraumatic. Eyes: Extraocular muscles are intact. Pupils are equal, round and reactive to light and accommodation. Ears: No lesions. Nose appeared normal. Throat: No exudate or erythema. NECK: Supple. No JVD, no carotid bruit. No lymphadenopathy or thyromegaly. LUNGS: Severely diminished breath sounds bilaterally. Bilateral inspiratory and expiratory wheezing. Percussion note normal. Chest symmetrical. HEART: S1, S2, no S3. No murmur. No cyanosis or clubbing. No ascites. Pulses: Dorsalis pedis and posterior tibial pulses +1 to +2 bilaterally. ABDOMEN: Soft. Nontender. Bowel sounds active. No CVA tenderness. No mass felt. EXTREMITIES: No leg edema. Full range of motion of all extremities, equal. NEUROLOGIC: Alert, oriented times three. No focal deficit. Cranial nerves II through XII are grossly intact. No headache, no double vision or headache. SKIN: Not dry. Intact. Turgor - normal. LYMPHATIC: No palpable lymph nodes/no lymphedema. MUSCULOSKELETAL: Normal joints with no swelling. Muscle tone is normal. LABS/IMAGING: Initial ABGS on room air, pH 7.461, pc02 31.1, p02 40, base excess -2, bicarb 22.2, TC02 23, 02 sat 79. White count 8.9, hemoglobin 12.8, hematocrit 39.0, platelets 107, lactic acid 1.02, sodium 135, potassium 3.8, BUN 24, creatinine 1.14. INR 2.6. Influenza A and B are negative. Strep is negative. T4 1.1, TSH 2.9. CT of chest shows dependent bilateral lower lobe consolidation which represents atelectasis vs pneumonia, moderate emphysema, atherosclerosis. ASSESSMENT: 1. ACUTE RESPIRATORY FAILURE 2. BILATERAL PNEUMONIA 3. SHORTNESS OF BREATH 4. ACUTE COPD EXACERBATION 5. FORMER SMOKER 6. SEVERE PERIPHERAL VASCULAR DISEASE 7. PERIPHERAL ARTERIAL DISEASE PLAN: 1. We will admit to [facility]. 2. Routine telemetry orders. 3. CBC, CMP. 4. INR daily. 5. Continue home medications. 6. Start Rocephin 1 gm IV daily. 7. Zithromax 500 mg p.o. daily times three days. 8. Solu-Cortef 125 IV q.8hr. 9. Duonebs scheduled q.6hr. 10. Oxygen at 1 to 3L as needed. 11. May start on Vapotherm. 12. Repeat ABGs in one hour. 13. Normal Saline IV at 75 cc/hr. 14. Regular diet. 15. Continue home medications. 16. Will follow closely. TIME SPENT: More than 70 minutes. MTDD
[2019-03-23] MEDS: ZITHROMAX 500 MG in SODIUM CHLORIDE 250 ML IV SCH (11:43)
[2019-03-24 04:44] LABS: HEMATOCRIT 34.4 % (37.0-47.0)
[2019-03-24] MEDS: XANAX PO PRN ×2 (04:44→09:35)
[2019-03-24] MEDS: DUONEB NEB SCH ×4 (05:30→22:36)
[2019-03-24] MEDS ORDERED: TORADOL IM STA (06:09)
[2019-03-24] MEDS ORDERED: ZOFRAN 4 MG/2 ML IVP STA (06:10)
[2019-03-24] MEDS: PROTONIX PO SCH (06:41)
[2019-03-24] MEDS: SYNTHROID PO SCH (06:41)
[2019-03-24] MEDS: NORCO 5-325 PO PRN (09:35)
[2019-03-24] MEDS: NEURONTIN PO SCH ×3 (11:53→20:19)
[2019-03-24] MEDS: ZESTRIL PO SCH (11:54)
[2019-03-24] MEDS: LEXAPRO PO SCH (11:56)
[2019-03-24] MEDS: CALCIUM 500 + VIT D 200 MG TABLET PO SCH ×2 (11:57→20:19)
[2019-03-24] MEDS: FERROUS SULFATE PO SCH ×2 (11:58→20:19)
[2019-03-24] MEDS ORDERED: HALDOL IM PRN (12:27)
[2019-03-24] MEDS ORDERED: LIDOCAINE HCL 1% SDV IM STA (12:30)
[2019-03-24] MEDS: PREDNISONE PO SCH (13:15)
[2019-03-24] MEDS: ROCEPHIN 1 GM VIAL IM SCH (13:15)
[2019-03-24] MEDS: ZITHROMAX PO SCH (13:15)
[2019-03-24] MEDS: SODIUM CHLORIDE 1,000 ML IV SCH (13:17)
[2019-03-24] MEDS: XANAX PO SCH ×2 (15:46→20:19)
[2019-03-24] MEDS: COUMADIN PO SCH (17:11)
[2019-03-25] MEDS: DUONEB NEB SCH ×4 (04:55→23:09)
[2019-03-25] MEDS: PROTONIX PO SCH (05:45)
[2019-03-25] MEDS: SYNTHROID PO SCH (05:45)
[2019-03-25 06:00] LABS: HEMATOCRIT 35.8 % (37.0-47.0)
[2019-03-25] MEDS: ROCEPHIN 1 GM/50 ML D5W 1 GM/50 ML BAG IV SCH (07:14)
[2019-03-25] MEDS: SOLU-MEDROL 125 MG IVP SCH (07:15)
[2019-03-25] MEDS: ZITHROMAX 500 MG in SODIUM CHLORIDE 250 ML IV SCH (07:15)
--- NOTE | 2019-03-25 07:40 | PN ---
DATE OF SERVICE: 03/24/19 SUBJECTIVE: The patient was seen and examined this morning. The patient is alert and recognized me but confused. Thought that I had fired somebody that she liked. The daughter is in the room. The patient is moving all of her extremities. There is no neurological deficit. REVIEW OF SYSTEMS: CONSTITUTIONAL: No night sweats. No fatigue, malaise, lethargy. No fever or chills. HEENT: Eyes: No visual changes. No eye pain. No eye discharge. ENT: No runny nose. No epistaxis. No sinus pain. No sore throat. No odynophagia. No congestion. RESPIRATORY: No cough, no congestion. No hemoptysis. No shortness of breath. CARDIOVASCULAR: No angina symptoms. No CHF symptoms. No atypical chest pain for CAD. No palpitations. No PND. No orthopnea. GASTROINTESTINAL: No abdominal pain. No nausea or vomiting. No diarrhea or constipation. No hematemesis. No hematochezia. GENITOURINARY: No urgency. No frequency. No dysuria. No hematuria. No obstructive symptoms. No discharge. No pain. No significant abnormal bleeding. MUSCULOSKELETAL: No musculoskeletal pain; no joint swelling. NEUROLOGICAL: No headache. No neck pain. No syncope. No seizures. No dizziness. PSYCHIATRIC: Not anxious. No depression. No suicidal thoughts. No homicidal thoughts. SKIN: No rash. No lesions. No wounds. ENDOCRINE: No unexplained weight loss. No weight gain. HEMATOLOGIC/LYMPHATIC: No anemia. No purpura. No petechiae. No prolonged or excessive bleeding. No palpable lymph nodes. PHYSICAL EXAMINATION: HEENT: Head normocephalic, atraumatic. Eyes: Extraocular muscles are intact. Pupils are equal, round and reactive to light and accommodation. Ears: No lesions. Nose appeared normal. Throat: No exudate or erythema. NECK: Supple. No JVD, no carotid bruit. No lymphadenopathy or thyromegaly. LUNGS: Decreased breath sounds but clear to auscultation. Percussion note normal. Chest symmetrical. HEART: S1, S2, no S3. No murmurs. No cyanosis or clubbing. No ascites. Pulses: Dorsalis pedis and posterior tibial pulses +1 to +2 bilaterally. ABDOMEN: Soft. Nontender. Bowel sounds active. No CVA tenderness. No mass felt. EXTREMITIES: No edema. Full range of motion of all extremities, equal. NEUROLOGIC: No focal deficit. Cranial nerves II through XII are grossly intact. No headache, no double vision or headache. SKIN: Not dry. Intact. Turgor - normal. LYMPHATIC: No palpable lymph nodes/no lymphedema. MUSCULOSKELETAL: Normal joints with no swelling. Muscle tone is normal. The patient had not taken her medications this morning and she now she is willing to take it. Blood pressure systolic 170 without any medications. LABS: Potassium and kidney functions are acceptable. ASSESSMENT: 1. Pneumonia seems to have resolved with respiratory status lot improved. Oxygen saturation with 2 liters is more than 95%. Lungs has more air entry. Her hydration status with skin turgor a lot better. PLAN: 1. Condition improving on steroids, antibiotics, NEBS and oxygen. 2. Dementia has worsened likely because of change of pace more like a hospital psychosis. We will give Haldol as needed 1mg. 3. We will restart the Xanax on a regular basis instead of PRN. CONDITION: Stable. TIME SPENT: More than 30 minutes. Plan and coordination of the patient's care discussed in the presence of nurse. ARASH
[2019-03-25] MEDS: LIDOCAINE HCL 1% SDV IM SCH (08:52)
[2019-03-25] MEDS: PREDNISONE PO SCH (08:53)
[2019-03-25] MEDS: ZITHROMAX PO SCH (08:53)
[2019-03-25] MEDS: ROCEPHIN 1 GM VIAL IM SCH (08:53)
[2019-03-25] MEDS: LEXAPRO PO SCH (08:53)
[2019-03-25] MEDS: FERROUS SULFATE PO SCH ×2 (08:53→20:33)
[2019-03-25] MEDS: XANAX PO SCH ×3 (08:54→20:41)
[2019-03-25] MEDS: NEURONTIN PO SCH ×3 (08:54→20:34)
[2019-03-25] MEDS: ZESTRIL PO SCH (08:54)
[2019-03-25] MEDS: CALCIUM 500 + VIT D 200 MG TABLET PO SCH ×2 (08:54→20:34)
--- NOTE | 2019-03-25 09:23 | PCM.PROG ---
Attending Provider: ATTENDING PROVIDER: Dr. BIJAN ROWE DATE OF SERVICE: 03/25/19 SUBJECTIVE: This 83 year old /WHITE F was hospitalized 03/22/19 with right lower lobe pneumonia. Condition has steadily improved as far as respiratory status is concerned. She has been on steroids, antibiotics and nebs treatment. Her other problem was dementia worsening due to hospital psychosis. She seems to have settled down. Her daughter is staying with her. REVIEW OF SYSTEMS: CONSTITUTIONAL: No night sweats. No fatigue, malaise, lethargy. No fever or chills. HEENT: Eyes: No visual changes. No eye pain. No eye discharge. ENT: No runny nose. No epistaxis. No sinus pain. No odynophagia. No congestion. RESPIRATORY: No cough, no congestion. No hemoptysis. No shortness of breath. CARDIOVASCULAR: No angina symptoms. No CHF symptoms. No atypical chest pain for CAD. No palpitations. No orthopnea.. GASTROINTESTINAL: No abdominal pain. No nausea or vomiting. No diarrhea or constipation. No hematemesis. No hematochezia. GENITOURINARY: No urgency. No frequency. No dysuria. No hematuria. No obstructive symptoms. No discharge. No pain. No significant abnormal bleeding. MUSCULOSKELETAL: No musculoskeletal pain; no joint swelling. NEUROLOGICAL: Awake, alert, oriented. No headache. No neck pain. No syncope. No seizures. No dizziness. PSYCHIATRIC: Not anxious. No depression. No suicidal thoughts. No homicidal thoughts. SKIN: No rash. No lesions. No wounds. ENDOCRINE: No unexplained weight loss. No weight gain. HEMATOLOGIC/LYMPHATIC: No anemia. No purpura. No petechiae. No prolonged or excessive bleeding. No palpable lymph nodes. PHYSICAL EXAMINATION: GENERAL: The patient is awake, alert and oriented, lying/sitting in bed in no distress. VITAL SIGNS: Temperature 98.0 F, Pulse 85, Respiratory Rate 16, BP 156/65, Pulse Ox 100% HEENT: Head normocephalic, atraumatic. Eyes: Extraocular muscles are intact. Pupils are equal, round and reactive to light and accommodation. Ears: No lesions. Nose appeared normal. Throat: No exudate or erythema. NECK: Supple. No JVD, no carotid bruit. No lymphadenopathy or thyromegaly. LUNGS: Decreased brath sounds. Clear to auscultation. Percussion note normal. Chest symmetrical. HEART: S1, S2, no S3. No murmurs. No cyanosis or clubbing. No ascites. Pulses: Dorsalis pedis and posterior tibial pulses +1 to +2 both sides. ABDOMEN: Soft. Non-tender. Bowel sounds active. No CVA tenderness. No mass felt. EXTREMITIES: No edema. Full range of motion of all extremities, equal. NEUROLOGIC: No focal deficit. Cranial nerves II through XII are grossly intact. No headache, no double vision or headache. SKIN: Warm and dry. Intact. Turgor-normal. LYMPHATIC: No palpable lymph nodes/no lymphedema. MUSCULOSKELETAL: Normal joints with no swelling. Muscle tone is normal. LAB REVIEW: 03/25/19 05:02 03/25/19 05:02 03/25/19 06:20: Urine Color Yellow, Urine Clarity Clear, Urine pH 5.5, Ur Specific [place] 1.020, Urine Protein Negative, Urine Glucose (UA) Negative, Urine Ketones Negative, Urine Blood Trace-intact, Urine Nitrite Negative, Urine Bilirubin Negative, Urine Urobilinogen 0.2, Ur Leukocyte Esterase Negative, Urine Microscopic RBC 0-2, Urine Microscopic WBC 2-5, Ur Squamous Epith Cells 0- 2, Ur Transition Epith Cell 0-2, Urine Bacteria Trace, Hyaline Casts 0-2, G ranular Casts 0-2 03/25/19 05:02: Sodium 141.8, Potassium 4.06, Chloride 108.4 H, Carbon Dioxide 24.0, Anion Gap 13.46, BUN 26.2 H, Creatinine 1.08, Estimated GFR (MDRD) 48.00, BUN/Creatinine Ratio 24.25, Glucose 112.9 H, Calcium 9.17, Total Bilirubin 0.40, AST 197.9 H D, ALT 290.9 H D, Alkaline Phosphatase 68.4, Total Protein 6.49, Albumin 3.76, Globulin 2.73, Albumin/Globulin Ratio 1.37 03/25/19 05:02: WBC 4.67, RBC 3.65 L, Hgb 11.1 L, Hct 35.8 L, MCV 98.1, MCH 30.4, MCHC 31.0 L, RDW Coeff of Nataliya 14.6, Plt Count 128 L, Immature Gran % (Auto) 2.4, Neut % (Auto) 77.0, Lymph % (Auto) 13.1, [place] % (Auto) 7.3, Eos % (Auto) 0.0, Baso % (Auto) 0.2, Immature Gran # (Auto) 0.1, Neut # (Auto) 3.6, L ymph # (Auto) 0.6, [place] # (Auto) 0.3 L, Eos # (Auto) 0.0, Baso # (Auto) 0.0 03/25/19 05:02: PT 29.3 H D, INR 3.19 ASSESSMENT: Please see below. 1. Bilateral lower lobe pneumonia seems to be resolving. 2. Afebrile, appetite improved, hydration status improved. 3. Dementia seems to be under control with Xanax t.i.d. and Haldol p.r.n. 4. The patient has peripheral vascular disease. 5. Coronary artery disease. 6. Cardiovascular status is stable. PLAN: 1. ABG on room air. 2. Echocardiogram. Plan and coordination of the patient's care discussed in the presence of Instructional Design Specialist and nurse. CONDITION: Stable SCRIBED BY: SILAS MAN, Electronic Systems Technician scribed while in presence of service performed by Dr. BIJAN ROWE on 03/25/19 ([id number])
--- NOTE | 2019-03-25 10:56 | PN ---
DATE OF SERVICE: 03/22/19 SUBJECTIVE: The patient was seen and examined in the emergency room. The patient's daughter was present in the room. The patient was brought to the emergency room with cough, congestion. ABG showed pO2 40 with pCO2 36 with normal pH and hypoxic respiratory failure and was diagnosed with pneumonia and chronic lung disease. The patient is heavy smoker with severe peripheral arterial disease. REVIEW OF SYSTEMS: CONSTITUTIONAL: No night sweats. No fatigue, malaise, lethargy. No fever or chills. HEENT: Eyes: No visual changes. No eye pain. No eye discharge. ENT: No runny nose. No epistaxis. No sinus pain. No sore throat. No odynophagia. No congestion. RESPIRATORY: No cough, no congestion. No hemoptysis. No shortness of breath. CARDIOVASCULAR: No angina symptoms. No CHF symptoms. No atypical chest pain for CAD. No palpitations. No PND. No orthopnea. GASTROINTESTINAL: No abdominal pain. No nausea or vomiting. No diarrhea or constipation. No hematemesis. No hematochezia. GENITOURINARY: No urgency. No frequency. No dysuria. No hematuria. No obstructive symptoms. No discharge. No pain. No significant abnormal bleeding. MUSCULOSKELETAL: No musculoskeletal pain; no joint swelling. NEUROLOGICAL: No headache. No neck pain. No syncope. No seizures. No dizziness. PSYCHIATRIC: Not anxious. No depression. No suicidal thoughts. No homicidal thoughts. SKIN: No rash. No lesions. No wounds. ENDOCRINE: No unexplained weight loss. No weight gain. HEMATOLOGIC/LYMPHATIC: No anemia. No purpura. No petechiae. No prolonged or excessive bleeding. No palpable lymph nodes. PHYSICAL EXAMINATION: GENERAL: The patient was oriented to place and person. HEENT: Head normocephalic, atraumatic. Eyes: Extraocular muscles are intact. Pupils are equal, round and reactive to light and accommodation. Ears: No lesions. Nose appeared normal. Throat: No exudate or erythema. NECK: Supple. No JVD, no carotid bruit. No lymphadenopathy or thyromegaly. LUNGS: Decreased breath sounds with poor air entry. Clear to auscultation. Percussion note normal. Chest symmetrical. HEART: S1, S2, no S3. No murmurs. No cyanosis or clubbing. No ascites. Pulses: Dorsalis pedis and posterior tibial pulses +1 to +2 bilaterally. ABDOMEN: Soft. Nontender. Bowel sounds active. No CVA tenderness. No mass felt. EXTREMITIES: No edema. Full range of motion of all extremities, equal. NEUROLOGIC: No focal deficit. Cranial nerves II through XII are grossly intact. No headache, no double vision or headache. SKIN: Not dry. Intact. Turgor - normal. Looked pale. LYMPHATIC: No palpable lymph nodes/no lymphedema. MUSCULOSKELETAL: Normal joints with no swelling. Muscle tone is normal. LABS: Telemetry showed sinus rhythm with no acute changed. PLAN: 1. She was put on 3 liters of oxygen with oxygen saturation of 89% with pO2 60. The patient is then going to be put on high flow oxygen. 2. The patient's daughter and the patient don't want any intubation or respiratory. They want DNI but CPR only. 3. The patient's cardiovascular status seems to be stable. 4. The patient is going to be treated with IV steroids, IV antibiotics, NEBS treatment, IV fluids and telemetry. CONDITION: Critical. PROGNOSIS: Poor TIME SPENT: More than 30 minutes. Plan and coordination of the patient's care discussed in the presence of nurse. ARASH
--- NOTE | 2019-03-25 13:17 | PN ---
DATE OF SERVICE: 03/23/19 SUBJECTIVE: The patient was seen and examined with the Nurse Practitioner. The patient's condition has improved remarkably. Hydration status has improved. Pneumonia seems to be getting under control. She is alert. CONDITION: Stable. PLAN: 1. Continue Steroids, antibiotics, NEBS and high flow oxygen TIME SPENT: More than 30 minutes. Plan and coordination of the patient's care discussed in the presence of nurse. ARASH
[2019-03-25] MEDS: COUMADIN PO SCH (17:46)
[2019-03-25] MEDS: NORCO 5-325 PO PRN (21:44)
[2019-03-26] MEDS: DUONEB NEB SCH ×2 (04:40→11:11)
[2019-03-26 05:31] LABS: HEMATOCRIT 33.6 % (37.0-47.0)
[2019-03-26] MEDS: PROTONIX PO SCH (06:21)
[2019-03-26] MEDS: SYNTHROID PO SCH (06:21)
--- NOTE | 2019-03-26 09:04 | PCM.PROG ---
Attending Provider: ATTENDING PROVIDER: Dr. BIJAN ROWE This patient is seen with Lois Sarah, Nurse Practitioner. DATE OF SERVICE: 03/26/19 SUBJECTIVE: This 83 year old /WHITE F was hospitalized 03/22/19. The patient is resting comfortably in bed. Coughing has significantly improved. She is eating well. She is ready to be discharged. REVIEW OF SYSTEMS: CONSTITUTIONAL: Weakness. No night sweats. No fatigue, malaise, lethargy. No fever or chills. HEENT: Eyes: No visual changes. No eye pain. No eye discharge. ENT: No runny nose. No epistaxis. No sinus pain. No odynophagia. No congestion. RESPIRATORY: Positive for cough. No hemoptysis. No shortness of breath. CARDIOVASCULAR: No angina symptoms. No CHF symptoms. No atypical chest pain for CAD. No palpitations. No orthopnea.. GASTROINTESTINAL: No abdominal pain. No nausea or vomiting. No diarrhea or const ipation. No hematemesis. No hematochezia. GENITOURINARY: No urgency. No frequency. No dysuria. No hematuria. No obstructive symptoms. No discharge. No pain. No significant abnormal bleeding. MUSCULOSKELETAL: No musculoskeletal pain; no joint swelling. NEUROLOGICAL: Awake, alert with intermittent confusion. No headache. No neck pain. No syncope. No seizures. No dizziness. PSYCHIATRIC: Not anxious. No depression. No suicidal thoughts. No homicidal thoughts. SKIN: No rash. No lesions. No wounds. ENDOCRINE: No unexplained weight loss. No weight gain. HEMATOLOGIC/LYMPHATIC: No anemia. No purpura. No petechiae. No prolonged or excessive bleeding. No palpable lymph nodes. PHYSICAL EXAMINATION: GENERAL: The patient is awake, alert and oriented, lying/sitting in bed in no distress. VITAL SIGNS: Temperature 98.1 F, Pulse 72, Respiratory Rate 23, BP 117/52, Pulse Ox 92% HEENT: Head normocephalic, atraumatic. Eyes: Extraocular muscles are intact. Pupils are equal, round and reactive to light and accommodation. Ears: No lesions. Nose appeared normal. Throat: No exudate or erythema. NECK: Supple. No JVD, no carotid bruit. No lymphadenopathy or thyromegaly. LUNGS: Diminished breath sounds. Clear to auscultation. Percussion note normal. Chest symmetrical. HEART: S1, S2, no S3. No murmurs. No cyanosis or clubbing. No ascites. Pulses: Dorsalis pedis and posterior tibial pulses +1 to +2 both sides. ABDOMEN: Soft. Non-tender. Bowel sounds active. No CVA tenderness. No mass felt. EXTREMITIES: No edema. Full range of motion of all extremities, equal. NEUROLOGIC: No focal deficit. Cranial nerves II through XII are grossly intact. No headache, no double vision or headache. SKIN: Not dry. Intact. Turgor-normal. LYMPHATIC: No palpable lymph nodes/no lymphedema. MUSCULOSKELETAL: Normal joints with no swelling. Muscle tone is normal. LAB REVIEW: 03/26/19 05:00 03/26/19 05:00 03/26/19 05:00: PT 16.3 H D, INR 1.71 03/26/19 05:00: Sodium 143.3, Potassium 4.22, Chloride 111.0 H, Carbon Dioxide 27.5, Anion Gap 9.02, BUN 24.9 H, Creatinine 0.88, Estimated GFR (MDRD) 61.00, BUN/Creatinine Ratio 28.29, Glucose 90.8, Calcium 9.53, Total Bilirubin 0.42, AST 71.7 H D, ALT 206.8 H D, Alkaline Phosphatase 73.7, Total Protein 5.77 L, Albumin 3.28 L, Globulin 2.49, Albumin/Globulin Ratio 1.31 03/26/19 05:00: WBC 3.77 L, RBC 3.43 L, Hgb 10.5 L, Hct 33.6 L, MCV 98.0, MCH 30.6, MCHC 31.3 L, RDW Coeff of Nataliya 14.6, Plt Count 127 L, Immature Gran % (Auto) 4.0, Neut % (Auto) 66.7, Lymph % (Auto) 17.8, [place] % (Auto) 10.9 H, Eos % (Auto) 0.3, Baso % (Auto) 0.3, Immature Gran # (Auto) 0.2, Neut # (Auto) 2.5, Lymph # (Auto) 0.7, [place] # (Auto) 0.4, Eos # (Auto) 0.0, Baso # (Auto) 0.0 03/25/19 09:50: Puncture Site R brach, O2 Saturation 90.0 L, ABG pH 7.489 H, ABG pCO2 29.4 L, ABG pO2 54.0 L*, ABG HCO3 22.3, ABG Total CO2 23, ABG Base Excess - 1, Micheal Test +, FiO2 % 21.0 ASSESSMENT: Please see below. 1. Bilateral lower lobe pneumonia seems to be resolving. 2. Afebrile, appetite improved, hydration status improved. 3. Dementia seems to be under control with Xanax t.i.d. and Haldol p.r.n. 4. The patient has peripheral vascular disease. 5. Coronary artery disease. 6. Cardiovascular status is stable. PLAN: 1. D/C home. 2. Prednisone 20 mg for four days, 10 mg for three days. 3. Restart Coumadin. 4. Continue to hold Lovastatin. Plan and coordination of the patient's care discussed in the presence of Property Economist and nurse. CONDITION: Stable SCRIBED BY: SILAS MAN Janitorial Supervisor scribed while in presence of service performed by Dr. Rowe/Lois Sarah APRN on 03/26/19 ([id number])
[2019-03-26] MEDS: ROCEPHIN 1 GM VIAL IM SCH (10:08)
[2019-03-26] MEDS: LIDOCAINE HCL 1% SDV IM SCH (10:09)
[2019-03-26] MEDS: LEXAPRO PO SCH (10:10)
[2019-03-26] MEDS: ZESTRIL PO SCH (10:10)
[2019-03-26] MEDS: PREDNISONE PO SCH (10:10)
[2019-03-26] MEDS: ZITHROMAX PO SCH (10:11)
[2019-03-26] MEDS: FERROUS SULFATE PO SCH (10:11)
[2019-03-26] MEDS: NEURONTIN PO SCH (10:11)
[2019-03-26] MEDS: CALCIUM 500 + VIT D 200 MG TABLET PO SCH (10:11)
[2019-03-26] MEDS: XANAX PO SCH (10:11)
[2019-03-26 11:31] VITALS: BP 147/70; TEMP 98
--- NOTE | 2019-03-26 12:28 | CM.DICTOOL ---
ADMISSION: 03/22/19 10:56 DISCHARGE: MARCH 26, 2019 DATE OF SERVICE: 03/26/19 FINAL DIAGNOSIS BILATERAL LOWER LOBE PNEUMONIA ACUTE RESPIRATORY FAILURE COPD EXACERBATION ELEVATED LFT'S ELEVATED PT/INR HYPERTENSION CHF DYSLIPIDEMIA HYPOTHYROIDISM ANEMIA CVA WITH LEFT HEMIPARESIS, 2005 HISTORY OF DVT, LEFT LEG SEVERE PERIPHERAL ARTERY DISEASE (DR. CARMEN) DEGENERATIVE JOINT DISEASE HISTORY OF SUBDURAL HEMATOMA GENERALIZED ANXIETY DISORDER DEMENTIA HISTORY OF TIBULA/FIBULA FRACTURE, LEFT SMALL HIATAL HERNIA ANGIOPLASTY, 2019 FEM-POP, RIGHT 2013 LAST VITALS Temp Pulse Resp BP Pulse Ox 98 F 77 18 147/70 H 95 03/26/19 10:00 03/26/19 10:00 03/26/19 10:00 03/26/19 10:00 03/26/19 10:00 TAKE THESE MEDICATIONS AT HOME Hydrocodone Bitart/Acetaminophen ([place] 5-325) 1 tab PO TID PRN PRN Reason: Analgesia Last Admin: 03/25/19 21:44 Dose: 1 tab Documented by: Alprazolam (Xanax) 0.5 mg PO TID [facility] Last Admin: 03/26/19 10:11 Dose: 0.5 mg Documented by: Calcium/Vitamin D (Calcium 500 + Vit D 200 Mg Tablet) 1 each PO BID [facility] Last Admin: 03/26/19 10:11 Dose: 1 each Documented by: Escitalopram Oxalate (Lexapro) 10 mg PO DAILY [facility] Last Admin: 03/26/19 10:10 Dose: 10 mg Documented by: Ferrous Sulfate (Ferrous Sulfate) 324 mg PO BID [facility] Last Admin: 03/26/19 10:11 Dose: 324 mg Documented by: Furosemide (Lasix Tab) 20 mg PO 3 TIMES PER WEEK PRN PRN Reason: SWELLING Gabapentin (Neurontin) 100 mg PO TID [facility] Last Admin: 03/26/19 10:11 Dose: 100 mg Documented by: Levothyroxine Sodium (Synthroid) 75 mcg PO QDAC [facility] Last Admin: 03/26/19 06:21 Dose: 75 mcg Documented by: Lisinopril (Zestril) 20 mg PO DAILY [facility] Last Admin: 03/26/19 10:10 Dose: 20 mg Documented by: Pantoprazole Sodium (Protonix) 40 mg PO QDAC [facility] Last Admin: 03/26/19 06:21 Dose: 40 mg Documented by: Potassium Chloride (Micro-K Cap) 10 meq PO 3 TIMES PER WEEK PRN PRN Reason: GIVE WITH LASIX Prednisone (Prednisone) 20 mg PO DAILYWM [facility] Last Admin: 03/26/19 10:10 Dose: 20 mg Documented by: Warfarin Sodium (Coumadin) 4 mg PO QPM [facility] Last Admin: 03/25/19 17:46 Dose: Not Given Documented by: ALLERGIES propoxyphene HCl [From Darvon] Adverse Reaction (Verified 03/22/19 08:22) DISCONTINUED MEDICATIONS ATORVASTATIN (FOR NOW DUE TO ELEVATED LFT'S) NEW PRESCRIPTIONS: PROTONIX 40 MG DAILY OMNICEF 300 MG BID FOR 7 DAYS PREDNISONE 20 MG TAKE 1 DAILY FOR 4 DAYS, THEN 1/2 TABLET DAILY FOR 3 DAYS SMOKING: NOT APPLICABLE DISEASE SPECIFIC EDUCATION: NUTRITION/HYDRATION PRESCRIPTIONS APPOINTMENT ACTIVITY LAB REVIEW: 03/26/19 05:00 03/26/19 05:00 03/26/19 05:00: PT 16.3 H D, INR 1.71 03/26/19 05:00: Sodium 143.3, Potassium 4.22, Chloride 111.0 H, Carbon Dioxide 27.5, Anion Gap 9.02, BUN 24.9 H, Creatinine 0.88, Estimated GFR (MDRD) 61.00, BUN/Creatinine Ratio 28.29, Glucose 90.8, Calcium 9.53, Total Bilirubin 0.42, AST 71.7 H D, ALT 206.8 H D, Alkaline Phosphatase 73.7, Total Protein 5.77 L, Albumin 3.28 L, Globulin 2.49, Albumin/Globulin Ratio 1.31 03/26/19 05:00: WBC 3.77 L, RBC 3.43 L, Hgb 10.5 L, Hct 33.6 L, MCV 98.0, MCH 30.6, MCHC 31.3 L, RDW Coeff of Nataliya 14.6, Plt Count 127 L, Immature Gran % ( Auto) 4.0, Neut % (Auto) 66.7, Lymph % (Auto) 17.8, [place] % (Auto) 10.9 H, Eos % (Auto) 0.3, Baso % (Auto) 0.3, Immature Gran # (Auto) 0.2, Neut # (Auto) 2.5, Lymph # (Auto) 0.7, [place] # (Auto) 0.4, Eos # (Auto) 0.0, Baso # (Auto) 0.0 PLAN: DISCHARGE HOME WITH DAUGHTERMISAEL DIET: REGULAR TOLERATED LIQUIDS TOLERATED ACTIVITY: GRADUALLY RESUME TOLERATED SIT UP FOR MEALS, WALK SHORT DISTANCES CONTINUE TO USE OXYGEN AT NIGHT AND NEEDED AN APPOINTMENT IS SCHEDULED WITH DR. ROWE/MANUELA PERKINS APRN ON March AT 2:15 PM PLEASE CHECK WITH DR. ROWE/MANUELA PERKINS APRN REGARDING NEW ORDER FOR THERAPY IF NEEDED CODE STATUS: DO NOT INTUBATE, CPR ONLY MS. THURMAN IS ALERT TO PERSON, PLACE AND SITUATION. SHE LIVES WITH HER DA MISAEL MORATAYA AND WILL BE TRANSPORTED HOME BY THE DAUGHTER. BOTH ARE AGREEABLE TO DISCHARGE PLANS FOR TODAY. MS. THURMAN IS PARTIALLY DEPENDENT FOR ASSISTANCE WITH BATHING, DRESSING. SHE FEEDS HERSELF WITHOUT DIFFICULTY AND REPOSITIONS SELF IN THE BED. SHE TRANSFERS WITH STANDBY TO [facility] OF 1 STAFF MEMBER TO THE CHAIR AND AMBULATES TO THE BATHROOM WITH USE OF ROLLING WALKER. SHE IS CONTINENT OF BOWEL AND BLADDER. MEAL INTAKES ARE FAIR AT 10-100%. HYDRATION STATUS HAS IMPROVED. SKIN TURGOR IS GOOD. NO AREAS OF SKIN BREAKDOWN NOTED. DME IN THE HOME CONSISTS OF OXYGEN AT NIGHT, ROLLING WALKER WITH SEAT. MD MANUELA PEREZ APRN
--- NOTE | 2019-03-29 08:44 | PN ---
DATE OF SERVICE: 03/26/19 SUBJECTIVE: The patient was seen and examined with the nurse practitioner. The patient's condition has improved remarkably. She is alert. Hydration status has improved. Respiratory failure practically is under control, almost resolved. Advised to quit smoking. ASSESSMENT: 1. Severe peripheral arterial disease. 2. Severe chronic lung disease. 3. Dementia. PROGNOSIS: Poor. CONDITION: Stable for now. She is DNI. TIME SPENT: More than 30 minutes. Plan and coordination of the patient's care discussed in the presence of nurse. ARASH
--- NOTE | 2019-03-29 08:46 | PN ---
BILLING 03/22/19 ADMISSION DAY LEVEL 5 03/23/19 INTERMEDIATE 03/24/19 INTERMEDIATE 03/25/19 INTERMEDIATE 03/26/19 DISCHARGE MTDD
--- NOTE | 2019-03-29 13:03 | DS ---
DATE OF SERVICE: 03/26/19 FINAL DIAGNOSIS: 1. BILATERAL LOWER LOBE PNEUMONIA 2. ACUTE RESPIRATORY FAILURE 3. COPD EXACERBATION 4. ELEVATED LFT'S 5. ELEVATED PT/INR 6. HYPERTENSION 7. CHF 8. DYSLIPIDEMIA 9. HYPOTHYROIDISM 10.ANEMIA 11.CVA WITH LEFT HEMIPARESIS, 2005 12.HISTORY OF DVT, LEFT LEG 13.SEVERE PERIPHERAL ARTERY DISEASE (DR. CARMEN) 14.DEGENERATIVE JOINT DISEASE 15.HISTORY OF SUBDURAL HEMATOMA 16.GENERALIZED ANXIETY DISORDER 17.DEMENTIA 18.HISTORY OF TIBULA/FIBULA FRACTURE, LEFT 19.SMALL HIATAL HERNIA 20.ANGIOPLASTY, 2019 21.FEM-POP, RIGHT 2012 LAST VITALS: Temp Pulse Resp BP Pulse Ox 98 F 77 18 147/70 H 95 03/26/19 10:00 03/26/19 10:00 03/26/19 10:00 03/26/19 10:00 03/26/19 10:00 DISCHARGE INSTRUCTIONS: DISCHARGE HOME WITH DAUGHTERMISAEL. CONTINUE TO USE OXYGEN AT NIGHT AND NEEDED. AN APPOINTMENT IS SCHEDULED WITH DR. ROWE/MANUELA PERKINS APRN ON March AT 2:15 PM. PLEASE CHECK WITH DR. ROWE/MANUELA PERKINS APRN REGARDING NEW ORDER FOR THERAPY IF NEEDED. CODE STATUS: DO NOT INTUBATE, CPR ONLY. TAKE THESE MEDICATIONS AT HOME: Hydrocodone Bitart/Acetaminophen ([place] 5-325) 1 tab PO TID PRN PRN Reason: Analgesia Last Admin: 03/25/19 21:44 Dose: 1 tab Documented by: Alprazolam (Xanax) 0.5 mg PO TID [facility] Last Admin: 03/26/19 10:11 Dose: 0.5 mg Documented by: Calcium/Vitamin D (Calcium 500 + Vit D 200 Mg Tablet) 1 each PO BID [facility] Last Admin: 03/26/19 10:11 Dose: 1 each Documented by: Escitalopram Oxalate (Lexapro) 10 mg PO DAILY [facility] Last Admin: 03/26/19 10:10 Dose: 10 mg Documented by: Ferrous Sulfate (Ferrous Sulfate) 324 mg PO BID [facility] Last Admin: 03/26/19 10:11 Dose: 324 mg Documented by: Furosemide (Lasix Tab) 20 mg PO 3 TIMES PER WEEK PRN PRN Reason: SWELLING Gabapentin (Neurontin) 100 mg PO TID [facility] Last Admin: 01/03/20 10:11 Dose: 100 mg Documented by: Levothyroxine Sodium (Synthroid) 75 mcg PO QDAC [facility] Last Admin: 03/26/19 06:21 Dose: 75 mcg Documented by: Lisinopril (Zestril) 20 mg PO DAILY [facility] Last Admin: 03/26/19 10:10 Dose: 20 mg Documented by: Pantoprazole Sodium (Protonix) 40 mg PO QDAC [facility] Last Admin: 03/26/19 06:21 Dose: 40 mg Documented by: Potassium Chloride (Micro-K Cap) 10 meq PO 3 TIMES PER WEEK PRN PRN Reason: GIVE WITH LASIX Prednisone (Prednisone) 20 mg PO DAILYWM [facility] Last Admin: 03/26/19 10:10 Dose: 20 mg Documented by: Warfarin Sodium (Coumadin) 4 mg PO QPM [facility] Last Admin: 03/25/19 17:46 Dose: Not Given Documented by: ALLERGIES: propoxyphene HCl [From Darvon] Adverse Reaction (Verified 03/22/19 08:22) DISCONTINUED MEDICATIONS: ATORVASTATIN (FOR NOW DUE TO ELEVATED LFT'S) NEW PRESCRIPTIONS: PROTONIX 40 MG DAILY OMNICEF 300 MG BID FOR 7 DAYS PREDNISONE 20 MG TAKE 1 DAILY FOR 4 DAYS, THEN 1/2 TABLET DAILY FOR 3 DAYS SMOKING: NOT APPLICABLE DISEASE SPECIFIC EDUCATION: NUTRITION/HYDRATION PRESCRIPTIONS APPOINTMENT ACTIVITY LAB REVIEW: 03/26/19 05:00 03/26/19 05:00 03/26/19 05:00: PT 16.3 H D, INR 1.71 03/26/19 05:00: Sodium 143.3, Potassium 4.22, Chloride 111.0 H, Carbon Dioxide 27.5, Anion Gap 9.02, BUN 24.9 H, Creatinine 0.88, Estimated GFR (MDRD) 61.00, BUN/Creatinine Ratio 28.29, Glucose 90.8, Calcium 9.53, Total Bilirubin 0.42, AST 71.7 H D, ALT 206.8 H D, Alkaline Phosphatase 73.7, Total Protein 5.77 L, Albumin 3.28 L, Globulin 2.49, Albumin/Globulin Ratio 1.31 03/26/19 05:00: WBC 3.77 L, RBC 3.43 L, Hgb 10.5 L, Hct 33.6 L, MCV 98.0, MCH 30.6, MCHC 31.3 L, RDW Coeff of Nataliya 14.6, Plt Count 127 L, Immature Gran % (Auto) 4.0, Neut % (Auto) 66.7, Lymph % (Auto) 17.8, [place] % (Auto) 10.9 H, Eos % (Auto) 0.3, Baso % (Auto) 0.3, Immature Gran # (Auto) 0.2, Neut # (Auto) 2.5, Lymph # (Auto) 0.7, [place] # (Auto) 0.4, Eos # (Auto) 0.0, Baso # (Auto) 0.0 DIET: REGULAR TOLERATED LIQUIDS TOLERATED ACTIVITY: GRADUALLY RESUME TOLERATED SIT UP FOR MEALS, WALK SHORT DISTANCES HOSPITAL COURSE: 83 year old white female who is admitted through the emergency room with shortness of breath. ABG's showed pO2 in the 40's on nasal canula. Chest x-ray showed bilateral lower lobe pneumonia. She has a history of moderate to severe COPD, was a former smoker. She was admitted and placed on Rocephin 1gram IV daily along with Zithromax 500mg PO daily for three days. All of her home medications were continued. Initially started on Solu-Cortef 125mg IV Q 8 hours. She was on daily Coumadin for severe peripheral arterial disease. She routinely sees Dr. Carmen. INR was elevated for the first few days, we had to hold her Coumadin today. It was 1.4 and she will restart her Coumadin as she goes home today. PO2 was 54 on repeat ABG yesterday with O2 sat of 90 and that was on room air with significantly improved from her ABG on admission in which pO2 is in the 40's with nasal cannula via nasal cannula. Her lungs have significantly improved. She has been getting DUO NEBS Q 6 hours here. Coughing and shortness of breath have significantly improved. Yesterday was placed on Prednisone 20mg daily from IV steroids and has tolerated this well. We will send her home with Omnicef 300mg PO BID for the next 7 days along with Prednisone 10mg BID for three days and then daily for three days. She did have a slight elevation in AST and ALT while hospitalized. We did hold her Statin. We will continue to hold for the next week. These levels are trending down as of today. She has been up and about and eating well. We will discharge her home today in stable condition and followup with her in the office next week. TIME SPENT: More than 60 minutes. ARASH
--- NOTE | 2019-03-29 14:00 | ECHO2D ---
Date of Exam: 03/26/19 Ordering Physician: DR. BIJAN ROWE Room #: 115 Reason for Echo: SOA, HTN M-Mode Normal Adult Results LV Dimensions Normal Adult Results AoV Opening excursions >1.6 >1.6 LVEDD-base- 3.5-5.8 4.5 Ao root dimensions 2.0-3.7 2.8 LVESD-base- 3.1-4.6 L. Atrium dimensions 1.9-3.8 4.3 Post. Wall thickness 0.8-1.1 1.0 IV septum (thickness) 0.7-1.2 1.2 Post. Wall excursion 0.72-1.3 NORMAL Septal motion NORMAL Systolic motion R. Ventricular cavity 1.5-2.0 NORMAL LVEF 60% >60% Paradoxical septal wall motion NORMAL 2-D : 2-D M Mode Echocardiogram was performed using apical four chamber and left parasternal long and short axis views. Mitral, tricuspid and aortic valves appear to be normal. Contractility of the left ventricle seems to be normal, so is the cavity size. ENLARGED LEFT ATRIAL CAVITY. Aortic root appears to be normal. MILD PERICARDIAL EFFUSION. There is no thrombus noted in the left ventricle or left atrial cavity. No mitral valve prolapse noted. M-MODE: MV: NORMAL AV: NORMAL TV: NORMAL PV: CHAMBER SIZE: ENLARGED LEFT ATRIAL CAVITY WALL MOTION: NORMAL PERICARDIUM: TRACE TO MILD PERICARDIAL EFFUSION INTERPRETATION: 1. ENLARGED LEFT ATRIAL CAVITY 2. MAYBE BORDERLINE LEFT VENTRICULAR HYPERTROPHY 3. TRACE TO MILD PERICARDIAL EFFUSION 4. NORMAL VALVES MTDD
== END 2019-03-26 13:35 | disposition home or self-care (01) | DRG 189 ==
LOC: ED 08:10 → MEDSURG B 10:56
PROVIDERS: ADMIT Internal Medicine; ATTEND Internal Medicine
DX: I73.9 Peripheral vascular disease, unspecified; E78.5 Hyperlipidemia, unspecified; I50.9 Heart failure, unspecified; R53.1 Weakness; F41.1 Generalized anxiety disorder; I10 Essential (primary) hypertension; M19.90 Unspecified osteoarthritis, unspecified site; J44.1 Chronic obstructive pulmonary disease with (acute) exacerbation; I25.10 Atherosclerotic heart disease of native coronary artery without angina pectoris; J96.00 Acute respiratory failure, unspecified whether with hypoxia or hypercapnia; F03.90 Unspecified dementia, unspecified severity, without behavioral disturbance, psychotic disturbance, mood disturbance, and anxiety; R06.2 Wheezing; Z86.73 Personal history of transient ischemic attack (TIA), and cerebral infarction without residual deficits; J18.9 Pneumonia, unspecified organism; E03.9 Hypothyroidism, unspecified; R63.0 Anorexia; D64.9 Anemia, unspecified

== ENCOUNTER 2019-04-27 11:45 | Inpatient (IN) ==
[2019-04-27] MEDS ORDERED: DECADRON 4 MG/ML SDV IM STA (12:17)
[2019-04-27] MEDS ORDERED: ATROPINE SULFATE PFS IVP PRN (12:17)
[2019-04-27] MEDS ORDERED: TYLENOL PO PRN (12:17)
[2019-04-27] MEDS ORDERED: VISTARIL INJ IM PRN (12:17)
[2019-04-27] MEDS ORDERED: NITROSTAT SL PRN (12:17)
[2019-04-27 12:48] VITALS: BMI 24.7
[2019-04-27 12:54] LABS: HEMATOCRIT 42.3 % (37.0-47.0)
--- NOTE | 2019-04-27 13:32 | DI ---
EXAM: Chest one view HISTORY: Shortness of breath, productive cough, wheezing COMPARISON: 08/14/2016 TECHNIQUE: Single view of the chest was performed FINDINGS: Bilateral interstitial prominence. There is no pleural effusion or pneumothorax. The hea rt is enlarged in size. The mediastinal contour is normal, noting atherosclerosis. There are no acu te abnormalities of the bones. IMPRESSION: Cardiomegaly. Bilateral interstitial prominence could relate to interstitial pneumoniti s or mild interstitial edema.
[2019-04-27] MEDS: DUONEB NEB SCH ×2 (13:59→20:10)
[2019-04-27] MEDS: DEXTROSE 5%-1/2NS IV SOLUTION 1,000 ML IV SCH (14:24)
[2019-04-27] MEDS: ROCEPHIN 1 GM/50 ML D5W 1 GM/50 ML BAG IV SCH (14:25)
[2019-04-27] MEDS ORDERED: LASIX IVP STA (15:45)
[2019-04-27] MEDS ORDERED: BENADRYL PO PRN (16:35)
[2019-04-27] MEDS ORDERED: NON-FORMULARY MEDICATION (Ferrous Sulfate 325 MG) PO SCH (16:45)
[2019-04-27] MEDS ORDERED: COUMADIN PO SCH ×2 (17:00)
[2019-04-27] MEDS: LEXAPRO PO SCH (17:33)
[2019-04-27] MEDS: ZESTRIL PO SCH (17:33)
[2019-04-27] MEDS: CLARITIN PO SCH (17:34)
[2019-04-27] MEDS: XANAX PO PRN ×2 (17:34→20:38)
[2019-04-27] MEDS: COUMADIN PO SCH (17:35)
[2019-04-27] MEDS: NORCO 5-325 PO PRN (20:38)
[2019-04-27] MEDS: NEURONTIN PO SCH (20:38)
[2019-04-27] MEDS: FERROUS SULFATE PO SCH (20:39)
[2019-04-27] MEDS: CALCIUM 500 + VIT D 200 MG TABLET PO SCH (20:39)
[2019-04-27] MEDS ORDERED: CALCIUM CARBONATE VITAMIN D3 PO SCH (21:00)
[2019-04-28] MEDS: DUONEB NEB SCH ×4 (04:45→19:45)
[2019-04-28 05:21] LABS: HEMATOCRIT 41.9 % (37.0-47.0)
[2019-04-28] MEDS: SYNTHROID PO SCH (06:03)
[2019-04-28] MEDS: LASIX TAB PO SCH (06:04)
[2019-04-28] MEDS: CLARITIN PO SCH (09:18)
[2019-04-28] MEDS: ZESTRIL PO SCH (09:18)
[2019-04-28] MEDS: CALCIUM 500 + VIT D 200 MG TABLET PO SCH ×2 (09:18→20:07)
[2019-04-28] MEDS: LEXAPRO PO SCH (09:18)
[2019-04-28] MEDS: MICRO-K CAP PO SCH (09:18)
[2019-04-28] MEDS: FERROUS SULFATE PO SCH ×2 (09:18→20:07)
[2019-04-28] MEDS: ROCEPHIN 1 GM/50 ML D5W 1 GM/50 ML BAG IV SCH (09:18)
[2019-04-28] MEDS: DECADRON 4 MG/ML SDV IM SCH (09:19)
[2019-04-28] MEDS: DEXTROSE 5%-1/2NS IV SOLUTION 1,000 ML IV SCH (09:20)
[2019-04-28] MEDS: XANAX PO PRN (09:32)
[2019-04-28] MEDS: NORCO 5-325 PO PRN ×2 (09:32→20:07)
--- NOTE | 2019-04-28 11:25 | HP ---
DATE OF SERVICE: 04/27/19 HISTORY OF PRESENT ILLNESS: This is a 83-year-old female who presented for hospital followup from [facility] eight days ago. She had left lower extremity angioplasty by Dr. York. Complains of cough/congestion/shortness of breath times four days on antibiotic, Z-pack/steroids 04/23/19. No symptoms of CHF or CAD. PAST MEDICAL HISTORY: History of abnormal liver function, several times. History of pneumonia. Back pain, history of falls. Left pedal edema. Neuropathy. Hypertension. Dyslipidemia. CVA, left hemiparesis, 2005. COPD on 02 at h.s. Hypothyroidism. Osteoarthritis. PAD, Dr. Wharton. History of tibia fracture. History of DVT left leg. TIAN. Depression. DJD spine. Status post subdural hematoma Status post left CEA. Menstrual history, 1986 PAST SURGICAL HISTORY: Ovarian cyst, left ovary Left popliteal artery and tibioperoneal trunk angioplasty, Dr. Wharton REVIEW OF SYSTEMS: CONSTITUTIONAL: Positive for fatigue. No fever. HEENT: No sinus drainage, no sore throat. RESPIRATORY: Cough. No hemoptysis. CARDIOVASCULAR: Positive for shortness of breath with minimal exertion. No atypical chest pain for coronary artery disease. No angina, CHF symptoms, or palpitations. GASTROINTESTINAL: No melena or abdominal pain. No GERD. GENITOURINARY: No hematuria, no polyuria. 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 MUSCULOSKELETAL: No osteoarthritis pain. ENDOCRINE: No weight loss, no weight gain. SKIN: Dry. No rash. PSYCHIATRIC: Anxious. No depression, no suicidal thoughts, no homicidal thoughts. SOCIAL HISTORY: Tobacco - quit. No alcohol use. . Retired. Children (3) - two boys and one girl. (One girl of measles). FAMILY HISTORY: Father is from colon cancer. Mother from pancreatitic cancer. No brothers. One sister - 87 and healthy. MEDICATIONS: (HOME) Alprazolam 0.5 mg t.i.d. [place] 5/325 mg t.i.d. Neurontin 100 mg three tabs at h.s. Calcium 600 mg + Vitamin D b.i.d. Lisinopril 20 mg one daily Zyrtec 10 mg one daily Levothyroxine 75 mcg one daily Coumadin 4 mg one daily 02 at home h.s. Fe 325 mg b.i.d. Lasix 20 mg three a week K 10 mEq three a week Benadryl 25 mg one @ h.s. Lexapro 10 mg one daily Claritin 10 mg one daily alternates with Zyrtec Z-pack and Prednisone - done. ALLERGIES: PROLIA, DARVON PHYSICAL EXAMINATION: V/S: Pulse 75, BP 122/70, temperature 97, 02 sat 89%. Weight refused. Height 5'3". GENERAL APPEARANCE: Oriented times three in no distress. . HEENT: Normal. NECK: No JVP, no bruits. RESPIRATORY: Lungs are clear with decreased breath sounds. CARDIOVASCULAR: S1, S2, no S3, no murmur. No cyanosis, clubbing. No ascites. GI/ABDOMEN: No tenderness. Bowel sounds are active. EXTREMITIES: No edema, pulses +1, equal. 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 RECTAL/PELVIC: Colonoscopy: Patient refused. Pelvic: Patient refused. ASSESSMENT: 1. Acute bronchitis/COPD/left lower extremity angioplasty. 2. History of iliofemoral bypass right to left. 3. History of abnormal liver function, several times. 4. History of pneumonia. 5. Left leg angioplasty 12/10, Dr. Wharton. 6. Back pain, history of falls. 7. Left pedal edema. 8. Neuropathy. 9. Hypertension. 10. Dyslipidemia. 11. CVA, left hemiparesis, 2005. 12. COPD on 02 at h.s. 13. Hypothyroidism. 14. Osteoarthritis. 15. PAD, Dr. Wharton. 16. History of tibia fracture. 17. History of DVT left leg. 18. TIAN. 19. Depression. 20. DJD spine. 21. Status post subdural hematoma 22. Status post left CEA. PLAN: 1. Admit. 2. Telemetry orders. 3. 1 cc Decadron IM and daily a.m. 4. Rocephin 1 gm IV 24 hourly. 5. Duonebs q.i.d. 6. Continue all home medications. 7. 1000 cc D5/NS 50 cc/hr. 8. CPR only. No intubation/respirator. Discussed in detail. 9. ABG today with oxygen. TIME SPENT: More than 70 minutes. MTDD
[2019-04-28] MEDS: COUMADIN PO SCH (17:11)
[2019-04-28] MEDS: NEURONTIN PO SCH (20:07)
[2019-04-28] MEDS: XANAX PO SCH (20:08)
[2019-04-29] MEDS: DEXTROSE 5%-1/2NS IV SOLUTION 1,000 ML IV SCH (04:38)
[2019-04-29] MEDS: DUONEB NEB SCH ×4 (04:45→19:48)
[2019-04-29 05:30] LABS: HEMATOCRIT 38.7 % (37.0-47.0)
[2019-04-29] MEDS: SYNTHROID PO SCH (05:44)
--- NOTE | 2019-04-29 08:53 | PCM.PROG ---
Attending Provider: ATTENDING PROVIDER: Dr. BIJAN ROWE This patient is seen with Lois Sarah, Nurse Practitioner. DATE OF SERVICE: 04/29/19 SUBJECTIVE: This 83 year old /WHITE F was hospitalized 04/27/19. The patient is resting comfortably. She is still somewhat short of breath. We will try to do without oxygen today. Encouraged her to get up and about. Leg edema has improved. REVIEW OF SYSTEMS: CONSTITUTIONAL: No night sweats. No fatigue, malaise, lethargy. No fever or chills.Weakness. HEENT: Eyes: No visual changes. No eye pain. No eye discharge. ENT: No runny nose. No epistaxis. No sinus pain. No odynophagia. No congestion. RESPIRATORY: Cough, no congestion. No hemoptysis. No shortness of breath. CARDIOVASCULAR: No angina symptoms. No CHF symptoms. No atypical chest pain for CAD. No palpitations. No orthopnea.. GASTROINTESTINAL: No abdominal pain. No nausea or vomiting. No diarrhea or constipation. No hematemesis. No hematochezia. GENITOURINARY: No urgency. No frequency. No dysuria. No hematuria. No obstructive symptoms. No discharge. No pain. No significant abnormal bleeding. MUSCULOSKELETAL: No musculoskeletal pain; no joint swelling. NEUROLOGICAL: Awake, alert, oriented to time, place and person. No headache. No neck pain. No syncope. No seizures. No dizziness. PSYCHIATRIC: Not anxious. No depression. No suicidal thoughts. No homicidal thoughts. SKIN: No rash. No lesions. No wounds. ENDOCRINE: No unexplained weight loss. No weight gain. HEMATOLOGIC/LYMPHATIC: No anemia. No purpura. No petechiae. No prolonged or excessive bleeding. No palpable lymph nodes. PHYSICAL EXAMINATION: GENERAL: The patient is awake, alert and oriented, lying in bed in no distress. VITAL SIGNS: Temperature 97.6 F, Pulse 70, Respiratory Rate 20, BP 136/68, Pulse Ox 92% HEENT: Head normocephalic, atraumatic. Eyes: Extraocular muscles are intact. Pupils are equal, round and reactive to light and accommodation. Ears: No lesions. Nose appeared normal. Throat: No exudate or erythema. NECK: Supple. No JVD, no carotid bruit. No lymphadenopathy or thyromegaly. LUNGS: Diminished breath sounds. Clear to auscultation. Percussion note normal. Chest symmetrical. HEART: S1, S2, no S3. No murmurs. No cyanosis or clubbing. No ascites. Pulses: Dorsalis pedis and posterior tibial pulses +1 to +2 both sides. ABDOMEN: Soft. Non-tender. Bowel sounds active. No CVA tenderness. No mass felt. EXTREMITIES: No edema. Full range of motion of all extremities, equal. NEUROLOGIC: No focal deficit. Cranial nerves II through XII are grossly intact. No headache, no double vision or headache. SKIN: Not dry. Intact. Turgor-normal. LYMPHATIC: No palpable lymph nodes/no lymphedema. MUSCULOSKELETAL: Normal joints with no swelling. Muscle tone is normal. LAB REVIEW: 04/29/19 05:15 04/29/19 05:15 04/29/19 05:15: Sodium 139.4, Potassium 4.01, Chloride 102.6, Carbon Dioxide 28.5, Anion Gap 12.31, BUN 19.4 H, Creatinine 0.92, Estimated GFR (MDRD) 58.00, BUN/Creatinine Ratio 21.08, Glucose 113.7 H, Calcium 10.56 H, Total Bilirubin 0.37, AST 20.5, ALT 18.2, Alkaline Phosphatase 78.1, Total Protein 6.19 L, Albumin 3.87, Globulin 2.32, Albumin/Globulin Ratio 1.66 04/29/19 05:15: WBC 6.79, RBC 4.03 L, Hgb 12.5, Hct 38.7, MCV 96.0, MCH 31.0, MCHC 32.3, RDW Coeff of Nataliya 14.6, Plt Count 143, Immature Gran % (Auto) 0.4, Neut % (Auto) 74.1, Lymph % (Auto) 16.3, [place] % (Auto) 9.1, Eos % (Auto) 0.0, Baso % (Auto) 0.1, Immature Gran # (Auto) 0.0, Neut # (Auto) 5.0, Lymph # (Auto) 1.1, [place] # (Auto) 0.6, Eos # (Auto) 0.0, Baso # (Auto) 0.0 04/29/19 05:15: PT 46.5 H, INR 5.20 H* ASSESSMENT: Please see below. 1. Acute bronchitis 2. COPD with exacerbation 3. Left lower extremity edema, resolved 4. Severe PAD 5. Hypercoagulopathy PLAN: Hold Coumadin Plan and coordination of the patient's care discussed in the presence of Software Engineer and nurse. SCRIBED BY: Lesley ELLINGTON scribed while in presence of service performed by Dr. Rowe/Lois Sarah APRN on 04/29/19 ([id number])
[2019-04-29] MEDS: NORCO 5-325 PO PRN ×2 (09:24→20:41)
[2019-04-29] MEDS: ROCEPHIN 1 GM/50 ML D5W 1 GM/50 ML BAG IV SCH (09:24)
[2019-04-29] MEDS: ZESTRIL PO SCH (09:25)
[2019-04-29] MEDS: CLARITIN PO SCH (09:25)
[2019-04-29] MEDS: LEXAPRO PO SCH (09:25)
[2019-04-29] MEDS: FERROUS SULFATE PO SCH ×2 (09:25→20:41)
[2019-04-29] MEDS: XANAX PO SCH ×3 (09:25→20:41)
[2019-04-29] MEDS: DECADRON 4 MG/ML SDV IM SCH (09:40)
[2019-04-29] MEDS: CALCIUM 500 + VIT D 200 MG TABLET PO SCH (09:49)
[2019-04-29] MEDS: NEURONTIN PO SCH (20:40)
[2019-04-30] MEDS: DUONEB NEB SCH ×4 (04:38→20:45)
[2019-04-30 05:19] LABS: HEMATOCRIT 37.8 % (37.0-47.0)
[2019-04-30] MEDS: SYNTHROID PO SCH (05:57)
[2019-04-30] MEDS ORDERED: DECADRON 4 MG/ML SDV IM ONE (08:08)
[2019-04-30] MEDS: ROCEPHIN 1 GM/50 ML D5W 1 GM/50 ML BAG IV SCH (08:35)
[2019-04-30] MEDS: FERROUS SULFATE PO SCH ×2 (08:35→20:43)
[2019-04-30] MEDS: CALCIUM 500 + VIT D 200 MG TABLET PO SCH (08:35)
[2019-04-30] MEDS: LEXAPRO PO SCH (08:35)
[2019-04-30] MEDS: XANAX PO SCH ×3 (08:35→20:43)
[2019-04-30] MEDS: ZESTRIL PO SCH (08:35)
[2019-04-30] MEDS: DECADRON 4 MG/ML SDV IM SCH (08:36)
[2019-04-30] MEDS: PHENERGAN WITH CODEINE 6.25/10 MG/5 ML PO PRN ×2 (08:36→20:43)
[2019-04-30] MEDS: CLARITIN PO SCH (08:44)
--- NOTE | 2019-04-30 09:58 | PCM.PROG ---
Attending Provider: ATTENDING PROVIDER: Dr. BIJAN ROWE This patient is seen with Lois Sarah, Nurse Practitioner. DATE OF SERVICE: 04/30/19 SUBJECTIVE: This 83 year old /WHITE F was hospitalized 04/27/19. The patient is lying in bed resting comfortably. Coughing is worse. She had significant shortness of breath with exertion yesterday; unable to tolerate without oxygen. REVIEW OF SYSTEMS: CONSTITUTIONAL: Positive for weakness. No night sweats. No fatigue, malaise, lethargy. No fever or chills. HEENT: Eyes: No visual changes. No eye pain. No eye discharge. ENT: No runny nose. No epistaxis. No sinus pain. No odynophagia. No congestion. RESPIRATORY: Positive for cough and shortness of breath. No hemoptysis. CARDIOVASCULAR: No angina symptoms. No CHF symptoms. No atypical chest pain for CAD. No palpitations. No orthopnea.. GASTROINTESTINAL: No abdominal pain. No nausea or vomiting. No diarrhea or constipation. No hematemesis. No hematochezia. GENITOURINARY: No urgency. No frequency. No dysuria. No hematuria. No obstructive symptoms. No discharge. No pain. No significant abnormal bleeding. MUSCULOSKELETAL: No musculoskeletal pain; no joint swelling. NEUROLOGICAL: Awake, alert, oriented to time, place and person. No headache. No neck pain. No syncope. No seizures. No dizziness. PSYCHIATRIC: Not anxious. No depression. No suicidal thoughts. No homicidal thoughts. SKIN: No rash. No lesions. No wounds. ENDOCRINE: No unexplained weight loss. No weight gain. HEMATOLOGIC/LYMPHATIC: No anemia. No purpura. No petechiae. No prolonged or excessive bleeding. No palpable lymph nodes. PHYSICAL EXAMINATION: GENERAL: The patient is awake, alert and oriented, lying/sitting in bed in no distress. VITAL SIGNS: Temperature 97.7 F, Pulse 59, Respiratory Rate 18, BP 127/58, Pulse Ox 100% HEENT: Head normocephalic, atraumatic. Eyes: Extraocular muscles are intact. Pupils are equal, round and reactive to light and accommodation. Ears: No lesions. Nose appeared normal. Throat: No exudate or erythema. NECK: Supple. No JVD, no carotid bruit. No lymphadenopathy or thyromegaly. LUNGS: Diminished breath sounds with bilateral rhonchi. Percussion note normal. Chest symmetrical. HEART: S1, S2, no S3. No murmurs. No cyanosis or clubbing. No ascites. Pulses: Dorsalis pedis and posterior tibial pulses +1 to +2 both sides. ABDOMEN: Soft. Non-tender. Bowel sounds active. No CVA tenderness. No mass felt. EXTREMITIES: No edema. Full range of motion of all extremities, equal. NEUROLOGIC: No focal deficit. Cranial nerves II through XII are grossly intact. No headache, no double vision or headache. SKIN: Not dry. Intact. Turgor-normal. LYMPHATIC: No palpable lymph nodes/no lymphedema. MUSCULOSKELETAL: Normal joints with no swelling. Muscle tone is normal. LAB REVIEW: 04/30/19 05:08 04/30/19 05:08 04/30/19 05:08: Sodium 137.3, Potassium 3.87, Chloride 103.2, Carbon Dioxide 27.0, Anion Gap 10.97, BUN 25.0 H, Creatinine 0.99, Estimated GFR (MDRD) 53.00, BUN/Creatinine Ratio 25.25, Glucose 95.5, Calcium 9.44, Total Bilirubin 0.40, AST 19.2, ALT 18.0, Alkaline Phosphatase 82.5, Total Protein 5.97 L, Albumin 3.58, Globulin 2.39, Albumin/Globulin Ratio 1.49 04/30/19 05:08: WBC 7.26, RBC 3.89 L, Hgb 11.9 L, Hct 37.8, MCV 97.2, MCH 30.6, MCHC 31.5 L, RDW Coeff of Nataliya 15.1 H, Plt Count 156, Immature Gran % (Auto) 0.8, Neut % (Auto) 71.2, Lymph % (Auto) 19.8, [place] % (Auto) 8.1, Eos % (Auto) 0.0, Baso % (Auto) 0.1, Immature Gran # (Auto) 0.1, Neut # (Auto) 5.2, Lymph # (Auto) 1.4, [place] # (Auto) 0.6, Eos # (Auto) 0.0, Baso # (Auto) 0.0 04/30/19 05:08: PT 34.2 H D, INR 3.76 ASSESSMENT: Please see below. 1. Acute bronchitis 2. COPD with exacerbation 3. Left lower extremity edema, resolved 4. Severe PAD 5. Hypercoagulopathy PLAN: 1. Decadron 8 mg today only. 2. Phenergan with Codeine for cough one teaspoon q.6hr. 3. Continue Rocephin times three more days. 4. Repeat chest x-ray. Plan and coordination of the patient's care discussed in the presence of Manager Intelligence and nurse. CONDITION: Stable SCRIBED BY: Lesley GARCIA scribed while in presence of service performed by Dr. Rowe/Lois Sarah APRN on 04/30/19 ([id number])
--- NOTE | 2019-04-30 14:39 | PN ---
DATE OF SERVICE: 04/28/19 SUBJECTIVE: 83-year-old white female hospitalized with acute bronchitis, COPD. The patient's lower extremity swelling is much less. Left lower extremity has good pulses dorsalis pedis. Good circulation. The patient had intervention done a couple of weeks ago on the left lower extremity. She has severe peripheral arterial disease. REVIEW OF SYSTEMS: CONSTITUTIONAL: No night sweats. No fatigue, malaise, lethargy. No fever or chills. HEENT: Eyes: No visual changes. No eye pain. No eye discharge. ENT: No runny nose. No epistaxis. No sinus pain. No sore throat. No odynophagia. No congestion. RESPIRATORY: No cough, no congestion. No hemoptysis. No shortness of breath. CARDIOVASCULAR: No angina symptoms. No CHF symptoms. No atypical chest pain for CAD. No palpitations. No PND. No orthopnea. GASTROINTESTINAL: No abdominal pain. No nausea or vomiting. No diarrhea or constipation. No hematemesis. No hematochezia. GENITOURINARY: No urgency. No frequency. No dysuria. No hematuria. No obstructive symptoms. No discharge. No pain. No significant abnormal bleeding. MUSCULOSKELETAL: No leg pains. NEUROLOGICAL: No headache. No neck pain. No syncope. No seizures. No dizziness. PSYCHIATRIC: Not anxious. No depression. No suicidal thoughts. No homicidal thoughts. SKIN: No rash. No lesions. No wounds. ENDOCRINE: No unexplained weight loss. No weight gain. HEMATOLOGIC/LYMPHATIC: No anemia. No purpura. No petechiae. No prolonged or excessive bleeding. No palpable lymph nodes. PHYSICAL EXAMINATION: VITAL SIGNS: Temperature 97.8, pulse 66, respiratory rate 18, blood pressure 117/65, pulse ox 100%. HEENT: Head normocephalic, atraumatic. Eyes: Extraocular muscles are intact. Pupils are equal, round and reactive to light and accommodation. Ears: No lesions. Nose appeared normal. Throat: No exudate or erythema. NECK: Supple. No JVD, no carotid bruit. No lymphadenopathy or thyromegaly. LUNGS: Decreased breath sounds. Clear to auscultation. Percussion note normal. Chest symmetrical. HEART: S1, S2, no S3. No murmurs. No cyanosis or clubbing. No ascites. Pulses: Dorsalis pedis and posterior tibial pulses +1 to +2 bilaterally. ABDOMEN: Soft. Nontender. Bowel sounds active. No CVA tenderness. No mass felt. EXTREMITIES: No edema. Full range of motion of all extremities, equal. NEUROLOGIC: No focal deficit. Cranial nerves II through XII are grossly intact. No headache, no double vision or headache. SKIN: Not dry. Intact. Turgor - normal. LYMPHATIC: No palpable lymph nodes/no lymphedema. MUSCULOSKELETAL: Normal joints with no swelling. Muscle tone is normal. LABS: Hemoglobin 13.4, hematocrit 41, WBC 5,600, normal differential. Creatinine 0.9, BUN 21, potassium 3.8. ASSESSMENT: 1. ACUTE BRONCHITIS WITH COPD RESOLVING WITH ANTIBIOTICS, NEBS, STEROIDS. PLAN: 1. Continue the same treatment. 2. The patient is DNI. TIME SPENT: More than 30 minutes. Plan and coordination of the patient's care discussed in the presence of nurse. ARASH
--- NOTE | 2019-04-30 14:45 | PN ---
DATE OF SERVICE: 04/29/19 SUBJECTIVE: The patient was seen and examined this morning. The patient was examined with the nurse practitioner. The patient's condition has steadily improved. Circulation in the legs much better. Swelling seems to be resolving. She is at times confused but alert. No symptoms of CHF or coronary insufficiency. Respiratory status seems to be improving. CONDITION: STABLE. TIME SPENT: More than 30 minutes. Plan and coordination of the patient's care discussed in the presence of nurse. ARASH
--- NOTE | 2019-04-30 16:29 | DI ---
EXAM: Two views of the chest. History: Cough, short of breath Comparison: Chest radiograph 04/27/2019 Findings: Heart is borderline enlarged. No focal consolidation. No appreciable pleural fluid and n o pneumothorax. No acute osseous abnormalities. Atherosclerotic vascular calcifications. IVC filte r. Impression: Borderline cardiomegaly without acute disease in the chest
[2019-04-30] MEDS: NEURONTIN PO SCH (20:43)
[2019-04-30] MEDS: PULMICORT 1 MG/2 ML NEB SCH (20:45)
[2019-05-01] MEDS: PULMICORT 1 MG/2 ML NEB SCH ×2 (05:00→19:22)
[2019-05-01] MEDS: DUONEB NEB SCH ×4 (05:00→19:22)
[2019-05-01 05:15] LABS: HEMATOCRIT 40.1 % (37.0-47.0)
[2019-05-01] MEDS: SYNTHROID PO SCH (05:47)
[2019-05-01] MEDS: PHENERGAN WITH CODEINE 6.25/10 MG/5 ML PO PRN (05:48)
[2019-05-01] MEDS: LASIX TAB PO SCH (05:48)
[2019-05-01] MEDS: CLARITIN PO SCH (08:04)
[2019-05-01] MEDS: XANAX PO SCH ×4 (08:05→20:45)
[2019-05-01] MEDS: DECADRON 4 MG/ML SDV IM SCH (08:05)
[2019-05-01] MEDS: FERROUS SULFATE PO SCH ×2 (08:05→20:44)
[2019-05-01] MEDS: CALCIUM 500 + VIT D 200 MG TABLET PO SCH (08:05)
[2019-05-01] MEDS: ZESTRIL PO SCH (08:05)
[2019-05-01] MEDS: LEXAPRO PO SCH (08:05)
[2019-05-01] MEDS: MICRO-K CAP PO SCH (08:05)
[2019-05-01] MEDS: ROCEPHIN 1 GM/50 ML D5W 1 GM/50 ML BAG IV SCH (08:06)
[2019-05-01] MEDS: COUMADIN PO SCH (17:25)
[2019-05-01] MEDS: NEURONTIN PO SCH (20:44)
[2019-05-02] MEDS: PULMICORT 1 MG/2 ML NEB SCH ×2 (04:40→21:00)
[2019-05-02] MEDS: DUONEB NEB SCH ×4 (04:40→21:10)
[2019-05-02 04:45] LABS: HEMATOCRIT 37.6 % (37.0-47.0)
[2019-05-02] MEDS: SYNTHROID PO SCH (05:40)
[2019-05-02] MEDS: ROCEPHIN 1 GM/50 ML D5W 1 GM/50 ML BAG IV SCH (08:44)
[2019-05-02] MEDS: DECADRON 4 MG/ML SDV IM SCH (08:44)
[2019-05-02] MEDS: LEXAPRO PO SCH (08:45)
[2019-05-02] MEDS: FERROUS SULFATE PO SCH ×2 (08:45→20:32)
[2019-05-02] MEDS: ZESTRIL PO SCH (08:45)
[2019-05-02] MEDS: CALCIUM 500 + VIT D 200 MG TABLET PO SCH (08:45)
[2019-05-02] MEDS: XANAX PO SCH ×4 (08:45→20:32)
[2019-05-02] MEDS: CLARITIN PO SCH (08:45)
[2019-05-02] MEDS: NORCO 5-325 PO PRN (08:45)
[2019-05-02] MEDS: COUMADIN PO SCH (17:39)
[2019-05-02] MEDS ORDERED: COLACE PO PRN (18:24)
[2019-05-02] MEDS: NEURONTIN PO SCH (20:32)
[2019-05-03] MEDS: NORCO 5-325 PO PRN (03:24)
[2019-05-03] MEDS: PULMICORT 1 MG/2 ML NEB SCH (04:24)
[2019-05-03] MEDS: DUONEB NEB SCH ×2 (04:24→10:30)
[2019-05-03 05:18] LABS: HEMATOCRIT 37.3 % (37.0-47.0)
[2019-05-03] MEDS: SYNTHROID PO SCH (06:49)
[2019-05-03] MEDS: LASIX TAB PO SCH (06:49)
--- NOTE | 2019-05-03 08:37 | PN ---
DATE OF SERVICE: 04/30/2019 SUBJECTIVE: The patient was seen and examined this morning. The patient's condition seems to be improving except for respiratory status which seems to have deteriorated slightly. We will do a chest x-ray. The patient was seen and examined with the Nurse Practitioner. The patient's bronchitis is better. NO symptoms of CHF. TIME SPENT: More than 30 minutes. Plan and coordination of the patient's care discussed in the presence of nurse. ARASH
--- NOTE | 2019-05-03 08:48 | PCM.PROG ---
Attending Provider: ATTENDING PROVIDER: Dr. BIJAN ROWE DATE OF SERVICE: 05/03/19 SUBJECTIVE: This 83 year old /WHITE F was hospitalized 04/27/19 with acute bronchitis/pneumonitis. The patient's condition steadily improved. Intermittently cough and congestion worsened but has resolved. Cardiovascular status during the stay in the hospital was normal. She had recent surgery done on left lower extremity arterial system, likely stent placement by Dr. Wharton. Pedal pulses +1, dorsalis pedis bilaterally. REVIEW OF SYSTEMS: CONSTITUTIONAL: No night sweats. No fatigue, malaise, lethargy. No fever or chills. HEENT: Eyes: No visual changes. No eye pain. No eye discharge. ENT: No runny nose. No epistaxis. No sinus pain. No odynophagia. No congestion. RESPIRATORY: Mild cough and congestion. No hemoptysis. No shortness of breath. CARDIOVASCULAR: No angina symptoms. No CHF symptoms. No atypical chest pain for CAD. No palpitations. No orthopnea.. GASTROINTESTINAL: No abdominal pain. No nausea or vomiting. No diarrhea or constipation. No hematemesis. No hematochezia. GENITOURINARY: No urgency. No frequency. No dysuria. No hematuria. No obstructive symptoms. No discharge. No pain. No significant abnormal bleeding. MUSCULOSKELETAL: No musculoskeletal pain; no joint swelling. NEUROLOGICAL: Awake, alert, oriented to time, place and person. No headache. No neck pain. No syncope. No seizures. No dizziness. PSYCHIATRIC: Not anxious. No depression. No suicidal thoughts. No homicidal thoughts. SKIN: No rash. No lesions. No wounds. ENDOCRINE: No unexplained weight loss. No weight gain. HEMATOLOGIC/LYMPHATIC: No anemia. No purpura. No petechiae. No prolonged or excessive bleeding. No palpable lymph nodes. PHYSICAL EXAMINATION: GENERAL: The patient is awake, alert and oriented, lying/sitting in bed in no distress. VITAL SIGNS: Temperature 97.7 F, Pulse 61, Respiratory Rate 16, BP 111/59, Pulse Ox 93% HEENT: Head normocephalic, atraumatic. Eyes: Extraocular muscles are intact. Pupils are equal, round and reactive to light and accommodation. Ears: No lesions. Nose appeared normal. Throat: No exudate or erythema. NECK: Supple. No JVD, no carotid bruit. No lymphadenopathy or thyromegaly. LUNGS: Decreased breath sounds. Clear to auscultation. Percussion note normal. Chest symmetrical. HEART: S1, S2, no S3. No murmurs. No cyanosis or clubbing. No ascites. Pulses: Dorsalis pedis, acceptable and posterior tibial pulses +1 both sides. ABDOMEN: Soft. Non-tender. Bowel sounds active. No CVA tenderness. No mass felt. EXTREMITIES: No edema. Full range of motion of all extremities, equal. NEUROLOGIC: No focal deficit. Cranial nerves II through XII are grossly intact. No headache, no double vision or headache. SKIN: Warm and dry. Intact. Turgor-normal. LYMPHATIC: No palpable lymph nodes/no lymphedema. MUSCULOSKELETAL: Normal joints with no swelling. Muscle tone is normal. LAB REVIEW: 05/03/19 04:53 05/03/19 04:53 05/03/19 04:53: Sodium 133.1 L, Potassium 4.43, Chloride 102.8, Carbon Dioxide 23.8, Anion Gap 10.93, BUN 32.0 H, Creatinine 0.96, Estimated GFR (MDRD) 55.00, BUN/Creatinine Ratio 33.33, Glucose 92.9, Calcium 8.94, Total Bilirubin 0.37, AST 24.2, ALT 22.9, Alkaline Phosphatase 82.1, Total Protein 5.60 L, Albumin 3.38 L, Globulin 2.22, Albumin/Globulin Ratio 1.52 05/03/19 04:53: WBC 7.19, RBC 3.82 L, Hgb 11.8 L, Hct 37.3, MCV 97.6, MCH 30.9, MCHC 31.6 L, RDW Coeff of Nataliya 14.9 H, Plt Count 139 L, Immature Gran % (Auto) 3.3, Neut % (Auto) 67.5, Lymph % (Auto) 20.7, [place] % (Auto) 8.1, Eos % (Auto) 0.1, Baso % (Auto) 0.3, Immature Gran # (Auto) 0.2, Neut # (Auto) 4.9, Lymph # (Auto) 1.5, [place] # (Auto) 0.6, Eos # (Auto) 0.0, Baso # (Auto) 0.0 ASSESSMENT: Please see below. 1. Acute bronchitis with COPD under control with antibiotics and steroids. 2. The patient is DNI. PLAN: 1. Discharge home today. 2. Will be discharged with antibiotics, steroids and nebs. 3. She will be seen back in my office in 5 to 7 days. 4. She will have followup with Dr. Wharton. 5. Due to reported shortness of breath on exertion and without oxygen, a three- step oximetry will be ordered to determine if the patient needs continuous oxygen vs nighttime oxygen only. 6. The patient also requires and has benefitted from nebulizer treatments four times a day for the acute bronchitis and allowing her to expectorate excretions. The patient is agreeable to oxygen and nebulizer. Plan and coordination of the patient's care discussed in the presence of Timber [employer] and nurse. EDUCATION: The side effects of steroids discussed with the patient including avascular necrosis of the femoral head, osteoporosis, et cetera. CONDITION: Stable SCRIBED BY: SILAS MAN, Commodities Broker scribed while in presence of service performed by Dr. BIJAN ROWE on 05/03/19 ([id number])
[2019-05-03] MEDS ORDERED: OMNICEF PO SCH (09:00)
--- NOTE | 2019-05-03 09:01 | DS ---
DATE OF SERVICE: 05/03/19 FINAL DIAGNOSIS: 1. ACUTE BRONCHITIS 2. COPD 3. COAGULOPATHY 4. HYPERTENSION 5. DYSLIPIDEMIA 6. CVA, LEFT HEMIPARESIS, 2005 7. HYPOTHYROIDISM 8. OSTEOARTHRITIS 9. PERIPHERAL ARTERIAL DISEASE, DR. CARMEN 10. HISTORY OF DVT, LEFT LEG 11, GENERALIZED ANXIETY DISORDER 12. 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 IVC FILTER 17. LEFT CAROTID ENDARTERECTOMY 18. LEFT LEG ANGIOPLASTY, 11/2018 DR. CARMEN 19. LEFT POPLITEAL ARTERY AND TIBIOPERITONEAL TRUNK AGIOPLASTY, DR. Rola VEE Apr.15 LAST VITALS Temp Pulse Resp BP Pulse Ox 97.7 F 61 18 111/59 L 96 05/03/19 06:00 05/03/19 06:00 05/03/19 08:00 05/03/19 06:00 05/03/19 10:00 DISCHARGE INSTRUCTIONS: 1. USE NEBULIZER TREATMENT FOUR TIMES A DAY (DUONEB) NEBULIZER TO BE DELIVERED FROM [facility] 2. USE OXYGEN AT 2 LITERS PER CANNULA CONTINUOUSLY (NEED TO USE CONTINUOUSLY NOT JUST AT NIGHT) 3. AN APPOINTMENT IS SCHEDULED ON AT 8:[address] CARMEN (WILL SEE PRESCRIPTION EYEGLASS MAKER) 4. AN APPOINTMENT IS SCHEDULED WITH DR. ROWE ON AT 2:30 PM 5. CODE STATUS: DO NOT INTUBATE, CPR ONLY MEDICATIONS AT DISCHARGE: Hydrocodone Bitart/Acetaminophen ([place]illos 5-325) 1 tab PO TID PRN PRN Reason: MODERATE PAIN Last Admin: 05/03/19 03:24 Dose: 1 tab Documented by: Albuterol/Ipratropium (Duoneb) 3 ml NEB RTQID CHUY (RX) Last Admin: 05/03/19 10:30 Dose: 3 ml Documented by: Alprazolam (Xanax) 0.5 mg PO TID PRN Last Admin: 05/03/19 09:42 Dose: 0.5 mg Documented by: Calcium/Vitamin D (Calcium 500 + Vit D 200 Mg Tablet) 1 each PO DAILY CHUY Last Admin: 05/03/19 09:43 Dose: 1 each Documented by: Cefdinir (Omnicef) 300 mg PO Q12HR [facility] Stop: 02/13/20 08:59 Last Admin: 05/03/19 09:44 Dose: 300 mg Documented by: Diphenhydramine HCl (Benadryl) 25 mg PO BEDTIME PRN PRN Reason: Insomnia Docusate Sodium (Colace) 100 mg PO DAILY PRN PRN Reason: Constipation Last Admin: 05/02/19 18:33 Dose: 100 mg Documented by: Escitalopram Oxalate (Lexapro) 10 mg PO DAILY [facility] Last Admin: 05/03/19 09:42 Dose: 10 mg Documented by: Ferrous Sulfate (Ferrous Sulfate) 324 mg PO BID [facility] Last Admin: 05/03/19 09:41 Dose: 324 mg Documented by: Furosemide (Lasix Tab) 20 mg PO MoWeSa@[id number] [facility] Last Admin: 05/03/19 06:49 Dose: 20 mg Documented by: Gabapentin (Neurontin) 300 mg PO BEDTIME [facility] Last Admin: 05/02/19 20:32 Dose: 300 mg Documented by: Levothyroxine Sodium (Synthroid) 75 mcg PO QDAC [facility] Last Admin: 05/03/19 06:49 Dose: 75 mcg Documented by: Lisinopril (Zestril) 20 mg PO DAILY [facility] Last Admin: 05/03/19 09:44 Dose: 20 mg Documented by: Loratadine (Claritin) 10 mg PO DAILY [facility] Last Admin: 05/03/19 09:43 Dose: 10 mg Documented by: Potassium Chloride (Micro-K Cap) 10 meq PO [id number]@0800 [facility] Last Admin: 05/03/19 09:43 Dose: 10 meq Documented by: PREDNISONE 10 MG PO [facility] BID (RX) Warfarin Sodium (Coumadin) 4 mg PO QPM [facility] Last Admin: 05/02/19 17:39 Dose: 4 mg Documented by: ALLERGIES denosumab [From Prolia] Adverse Reaction (Verified 04/27/19 16:43) propoxyphene HCl [From Darvon] Adverse Reaction (Verified 03/22/19 08:22) NEW PRESCRIPTIONS: DUONEBS 3 ML QID VIA NEBULIZER PREDNISONE 10 MG BID WITH MEAL FOR 5 DAYS NORCO 5-325 MG TID PRN PAIN ALPRAZOLAM 0.5 MG TID PRN OMNICEF 300 MG BID FOR 5 DAYS DISCONTINUED MEDICATIONS: NONE DIET INSTRUCTIONS: REGULAR TOLERATED ACTIVITY: RESUME TOLERATED; UP TO CHAIR AND AMBULATE WITH WALKER SMOKING: NOT APPLICABLE DISEASE SPECIFIC EDUCATION: NEBULIZER TREATMENTS OXYGEN, CONTINUOUS PREDNISONE (STEROID) AND RISK OF GI IRRITATION, AVASCULAR NECROSIS APPOINTMENTS LAB REVIEW: 05/03/19 04:53: Sodium 133.1 L, Potassium 4.43, Chloride 102.8, Carbon Dioxide 23.8, Anion Gap 10.93, BUN 32.0 H, Creatinine 0.96, Estimated GFR (MDRD) 55.00, BUN/Creatinine Ratio 33.33, Glucose 92.9, Calcium 8.94, Total Bilirubin 0.37, AST 24.2, ALT 22.9, Alkaline Phosphatase 82.1, Total Protein 5.60 L, Albumin 3.38 L, Globulin 2.22, Albumin/Globulin Ratio 1.52 05/03/19 04:53: WBC 7.19, RBC 3.82 L, Hgb 11.8 L, Hct 37.3, MCV 97.6, MCH 30.9, MCHC 31.6 L, RDW Coeff of Nataliya 14.9 H, Plt Count 139 L, Immature Gran % (Auto) 3.3, Neut % (Auto) 67.5, Lymph % (Auto) 20.7, [place] % (Auto) 8.1, Eos % (Auto) 0.1, Baso % (Auto) 0.3, Immature Gran # (Auto) 0.2, Neut # (Auto) 4.9, Lymph # (Auto) 1.5, [place] # (Auto) 0.6, Eos # (Auto) 0.0, Baso # (Auto) 0.0 HOSPITAL COURSE: This 83-year-old White/ female was hospitalized with acute bronchitis with chronic lung disease. She was seen in the office and hospitalized. The patient had an appointment with the vascular surgeon on the day of hospitalization for procedure done on left lower limb. During stay in hospital she was treated with Rocephin, steroids and nebs. Condition improved steadily. Appetite improved. The patient was usually oriented to person and place, confused at times but alert. On discharge the patient had normal cardiovascular status, pedal pulses, dorsalis pedis pulses q.12 bilaterally. Will have followup with Dr. Carmen. I will see the patient back in my office in 5 to 7 days. The patient will be discharged on Omnicef and Prednisone. I will start Duonebs at home. The patient is on home oxygen at night only. The patient is DNI. CONDITION: Stable TIME SPENT: More than 60 minutes. MTDD
--- NOTE | 2019-05-03 09:02 | PN ---
BILLING 04/27/19 ADMISSION DAY LEVEL 5 04/28/19 INTERMEDIATE 04/29/19 INTERMEDIATE 04/30/19 INTERMEDIATE 05/01/19 INTERMEDIATE 05/02/19 INTERMEDIATE 05/03/19 DISCHARGE MTDD
[2019-05-03] MEDS: FERROUS SULFATE PO SCH (09:41)
[2019-05-03] MEDS: LEXAPRO PO SCH (09:42)
[2019-05-03] MEDS: XANAX PO SCH ×2 (09:42→13:45)
[2019-05-03] MEDS: CLARITIN PO SCH (09:43)
[2019-05-03] MEDS: MICRO-K CAP PO SCH (09:43)
[2019-05-03] MEDS: CALCIUM 500 + VIT D 200 MG TABLET PO SCH (09:43)
[2019-05-03] MEDS: ZESTRIL PO SCH (09:44)
[2019-05-03] MEDS: DECADRON 4 MG/ML SDV IM SCH (09:45)
--- NOTE | 2019-05-03 12:26 | CM.DICTOOL ---
ADMISSION: 04/27/19 11:45 DISCHARGE: MAY 03, 2019 DATE OF SERVICE: 05/03/19 FINAL DIAGNOSIS ACUTE BRONCHITIS COPD COAGULOPATHY HYPERTENSION DYSLIPIDEMIA CVA, LEFT HEMIPARESIS, 2005 HYPOTHYROIDISM OSTEOARTHRITIS PERIPHERAL ARTERIAL DISEASE, DR. 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 CARMEN LEFT POPLITEAL ARTERY AND TIBIOPERITONEAL TRUNK AGIOPLASTY, DR. Rola VEE Apr.15 LAST VITALS Temp Pulse Resp BP Pulse Ox 97.7 F 61 18 111/59 L 96 05/03/19 06:00 05/03/19 06:00 05/03/19 08:00 05/03/19 06:00 05/03/19 10:00 TAKE THESE MEDICATIONS AT HOME Hydrocodone Bitart/Acetaminophen (Freeman 5-325) 1 tab PO TID PRN PRN Reason: MODERATE PAIN Last Admin: 05/03/19 03:24 Dose: 1 tab Documented by: Albuterol/Ipratropium (Duoneb) 3 ml NEB RTQID CHUY (RX) Last Admin: 05/03/19 10:30 Dose: 3 ml Documented by: Alprazolam (Xanax) 0.5 mg PO TID PRN Last Admin: 05/03/19 09:42 Dose: 0.5 mg Documented by: Calcium/Vitamin D (Calcium 500 + Vit D 200 Mg Tablet) 1 each PO DAILY [facility] Last Admin: 05/03/19 09:43 Dose: 1 each Documented by: Cefdinir (Omnicef) 300 mg PO Q12HR [facility] Stop: 05/06/19 08:59 Last Admin: 05/03/19 09:44 Dose: 300 mg Documented by: Diphenhydramine HCl (Benadryl) 25 mg PO BEDTIME PRN PRN Reason: Insomnia Docusate Sodium (Colace) 100 mg PO DAILY PRN PRN Reason: Constipation Last Admin: 05/02/19 18:33 Dose: 100 mg Documented by: Escitalopram Oxalate (Lexapro) 10 mg PO DAILY [facility] Last Admin: 05/03/19 09:42 Dose: 10 mg Documented by: Ferrous Sulfate (Ferrous Sulfate) 324 mg PO BID [facility] Last Admin: 02/10/20 09:41 Dose: 324 mg Documented by: Furosemide (Lasix Tab) 20 mg PO [id number] [facility] Last Admin: 05/03/19 06:49 Dose: 20 mg Documented by: Gabapentin (Neurontin) 300 mg PO BEDTIME [facility] Last Admin: 05/02/19 20:32 Dose: 300 mg Documented by: Levothyroxine Sodium (Synthroid) 75 mcg PO QDAC [facility] Last Admin: 05/03/19 06:49 Dose: 75 mcg Documented by: Lisinopril (Zestril) 20 mg PO DAILY [facility] Last Admin: 05/03/19 09:44 Dose: 20 mg Documented by: Loratadine (Claritin) 10 mg PO DAILY [facility] Last Admin: 05/03/19 09:43 Dose: 10 mg Documented by: Potassium Chloride (Micro-K Cap) 10 meq PO [email or web address] [facility] Last Admin: 05/03/19 09:43 Dose: 10 meq Documented by: PREDNISONE 10 MG PO [facility] BID (RX) Warfarin Sodium (Coumadin) 4 mg PO QPM [facility] Last Admin: 05/02/19 17:39 Dose: 4 mg Documented by: ALLERGIES denosumab [From Prolia] Adverse Reaction (Verified 04/27/19 16:43) propoxyphene HCl [From Darvon] Adverse Reaction (Verified 03/22/19 08:22) DISCONTINUED MEDICATIONS NONE NEW PRESCRIPTIONS: DUONEBS 3 ML QID VIA NEBULIZER PREDNISONE 10 MG BID WITH MEAL FOR 5 DAYS NORCO 5-325 MG TID PRN PAIN ALPRAZOLAM 0.5 MG TID PRN OMNICEF 300 MG BID FOR 5 DAYS SMOKING: NOT APPLICABLE DISEASE SPECIFIC EDUCATION: NEBULIZER TREATMENTS OXYGEN, CONTINUOUS PREDNISONE (STEROID) AND RISK OF GI IRRITATION, AVASCULAR NECROSIS APPOINTMENTS LAB REVIEW: 05/03/19 04:53 05/03/19 04:53 05/03/19 04:53: Sodium 133.1 L, Potassium 4.43, Chloride 102.8, Carbon Dioxide 23.8, Anion Gap 10.93, BUN 32.0 H, Creatinine 0.96, Estimated GFR (MDRD) 55.00, BUN/Creatinine Ratio 33.33, Glucose 92.9, Calcium 8.94, Total Bilirubin 0.37, AST 24.2, ALT 22.9, Alkaline Phosphatase 82.1, Total Protein 5.60 L, Albumin 3.38 L, Globulin 2.22, Albumin/Globulin Ratio 1.52 05/03/19 04:53: WBC 7.19, RBC 3.82 L, Hgb 11.8 L, Hct 37.3, MCV 97.6, MCH 30.9, MCHC 31.6 L, RDW Coeff of Nataliya 14.9 H, Plt Count 139 L, Immature Gran % (Auto) 3.3, Neut % (Auto) 67.5, Lymph % (Auto) 20.7, Beaver % (Auto) 8.1, Eos % (Auto) 0.1, Baso % (Auto) 0.3, Immature Gran # (Auto) 0.2, Neut # (Auto) 4.9, Lymph # (Auto) 1.5, Beaver # (Auto) 0.6, Eos # (Auto) 0.0, Baso # (Auto) 0.0 PLAN: DISCHARGE HOME WITH DAUGHTER DIET: REGULAR TOLERATED ACTIVITY: RESUME TOLERATED; UP TO CHAIR AND AMBULATE WITH WALKER USE NEBULIZER TREATMENT FOUR TIMES A DAY (DUONEB) NEBULIZER TO BE DELIVERED FROM [facility] USE OXYGEN AT 2 LITERS PER CANNULA CONTINUOUSLY (NEED TO USE CONTINUOUSLY NOT JUST AT NIGHT) AN APPOINTMENT IS SCHEDULED ON AT 8:[address] CARMEN (WILL SEE FORMULATOR) AN APPOINTMENT IS SCHEDULED WITH DR. ROWE ON AT 2:30 PM CODE STATUS: DO NOT INTUBATE, CPR ONLY MS. THURMAN IS ALERT AND ORIENTED X 4. SHE IS INDEPENDENT WITH ACTIVITIES OF DAILY LIVING. MS. THURMAN LIVES WITH HER DAUGHTER, MISAEL HURD. SHE IS AMBULATORY WITH USE OF ROLLING WALKER AND SBA TO CGA OF 1 STAFF MEMBER. MS. THURMAN IS CONTINENT OF BOWEL AND BLADDER. SHE IS ABLE TO WALK TO THE BATHROOM WITH SISTANCE. MS. THURMAN FEEDS HERSELF AND HAS A GOOD APPETITE OF 50-100%. HYDRATION STATUS IS GOOD. SKIN IS INTACT AND FREE OF DECUBITUS ULCERS. A NEBULIZER HAS BEEN ORDERED FROM [facility]. THE PATIENT ALSO HAS OXGYEN AVAILABLE AT HOME FOR USE CONTINUOUSLY, ALTHOUGH THE PATIENT USES PRIM ARILY AT NIGHT. OTHER DME AVAILABLE IN THE HOME: SHOWER CHAIR, WALKER AND WHEELCHAIR. MD GAURANG PEREZ APRN
[2019-05-03 13:11] VITALS: BP 128/68; TEMP 98.1
--- NOTE | 2019-05-05 09:25 | PN ---
DATE OF SERVICE: 05/02/2019 SUBJECTIVE: 83 year old white female hospitalized with acute bronchitis and COPD. The patient's condition has steadily improved. For the first time she says that she is feeling better. Appetite has improved. REVIEW OF SYSTEMS: CONSTITUTIONAL: No night sweats. No fatigue, malaise, lethargy. No fever or chills. HEENT: Eyes: No visual changes. No eye pain. No eye discharge. ENT: No runny nose. No epistaxis. No sinus pain. No sore throat. No odynophagia. No congestion. RESPIRATORY: Mild cough, no congestion. No hemoptysis. No shortness of breath. CARDIOVASCULAR: No angina symptoms. No CHF symptoms. No atypical chest pain for CAD. No palpitations. No PND. No orthopnea. GASTROINTESTINAL: No abdominal pain. No nausea or vomiting. No diarrhea or constipation. No hematemesis. No hematochezia. GENITOURINARY: No urgency. No frequency. No dysuria. No hematuria. No obstructive symptoms. No discharge. No pain. No significant abnormal bleeding. MUSCULOSKELETAL: No musculoskeletal pain; no joint swelling. NEUROLOGICAL: No headache. No neck pain. No syncope. No seizures. No dizziness. PSYCHIATRIC: Not anxious. No depression. No suicidal thoughts. No homicidal thoughts. SKIN: No rash. No lesions. No wounds. ENDOCRINE: No unexplained weight loss. No weight gain. HEMATOLOGIC/LYMPHATIC: No anemia. No purpura. No petechiae. No prolonged or excessive bleeding. No palpable lymph nodes. PHYSICAL EXAMINATION: VITAL SIGNS: Temperature 98.2, pulse 70, respiratory rate 16, blood pressure 120/60 and pulse ox 94%. HEENT: Head normocephalic, atraumatic. Eyes: Extraocular muscles are intact. Pupils are equal, round and reactive to light and accommodation. Ears: No lesions. Nose appeared normal. Throat: No exudate or erythema. NECK: Supple. No JVD, no carotid bruit. No lymphadenopathy or thyromegaly. LUNGS: Decreased breath sounds but clear to auscultation. Percussion note normal. Chest symmetrical. HEART: S1, S2, no S3. No murmurs. No cyanosis or clubbing. No ascites. Pulses: Dorsalis pedis and posterior tibial pulses +1 to +2 bilaterally. ABDOMEN: Soft. Nontender. Bowel sounds active. No CVA tenderness. No mass felt. EXTREMITIES: No edema. Full range of motion of all extremities, equal. Pedal pulse felt. NEUROLOGIC: No focal deficit. Cranial nerves II through XII are grossly intact. No headache, no double vision or headache. SKIN: Not dry. Intact. Turgor - normal. LYMPHATIC: No palpable lymph nodes/no lymphedema. MUSCULOSKELETAL: Normal joints with no swelling. Muscle tone is normal. LABS: Hgb 11.7, hct 37, WBC 6,500 normal differential, creatinine 0.9, BUN 20, potassium 4.2 ASSESSMENT: 1. Acute bronchitis with COPD seems to have improved PLAN: 1. Continue NEBS 2. INR is low so we may have to give him an extra dose of Coumadin 3. Continue the rest of the medications 4. The patient is going to be discharged home on tapering dose of steroids and cephalosporins CONDITION: Stable. TIME SPENT: More than 30 minutes. Plan and coordination of the patient's care discussed in the presence of nurse. ARASH
--- NOTE | 2019-05-05 11:16 | PN ---
DATE OF SERVICE: 05/01/2019 SUBJECTIVE: 83 year old white female hospitalized with acute bronchitis and COPD. The patient had lower extremity swelling also. The patient has severe peripheral arterial disease. Recently she had a stent put in the left lower extremity arterial system. The pulses are good and doesn't have any ischemic type of pain. The patient is practically bed ridden. Her bronchitis symptoms are much better. She doesn't seem to be in distress today. She is coughing much less. She is alert but confused. REVIEW OF SYSTEMS: CONSTITUTIONAL: No night sweats. No fatigue, malaise, lethargy. No fever or chills. HEENT: Eyes: No visual changes. No eye pain. No eye discharge. ENT: No runny nose. No epistaxis. No sinus pain. No sore throat. No odynophagia. No congestion. RESPIRATORY: Coughing much less , no congestion. No hemoptysis. No shortness of breath. CARDIOVASCULAR: No angina symptoms. No CHF symptoms. No atypical chest pain for CAD. No palpitations. No PND. No orthopnea. GASTROINTESTINAL: No abdominal pain. No nausea or vomiting. No diarrhea or constipation. No hematemesis. No hematochezia. GENITOURINARY: No urgency. No frequency. No dysuria. No hematuria. No obstructive symptoms. No discharge. No pain. No significant abnormal bleeding. MUSCULOSKELETAL: No musculoskeletal pain; no joint swelling. NEUROLOGICAL: No headache. No neck pain. No syncope. No seizures. No dizziness. PSYCHIATRIC: Not anxious. No depression. No suicidal thoughts. No homicidal thoughts. SKIN: No rash. No lesions. No wounds. ENDOCRINE: No unexplained weight loss. No weight gain. HEMATOLOGIC/LYMPHATIC: No anemia. No purpura. No petechiae. No prolonged or excessive bleeding. No palpable lymph nodes. PHYSICAL EXAMINATION: VITAL SIGNS: Temperature 97.5, pulse 62, respiratory rate 18, blood pressure 133/55 and pulse ox 97%. HEENT: Head normocephalic, atraumatic. Eyes: Extraocular muscles are intact. Pupils are equal, round and reactive to light and accommodation. Ears: No lesions. Nose appeared normal. Throat: No exudate or erythema. NECK: Supple. No JVD, no carotid bruit. No lymphadenopathy or thyromegaly. LUNGS: Decreased breath sounds but clear to auscultation. Percussion note normal. Chest symmetrical. HEART: S1, S2, no S3. No murmurs. No cyanosis or clubbing. No ascites. Pulses: Dorsalis pedis and posterior tibial pulses +1 to +2 bilaterally. ABDOMEN: Soft. Nontender. Bowel sounds active. No CVA tenderness. No mass felt. EXTREMITIES: No edema. Full range of motion of all extremities, equal. NEUROLOGIC: No focal deficit. Cranial nerves II through XII are grossly intact. No headache, no double vision or headache. SKIN: Not dry. Intact. Turgor - normal. LYMPHATIC: No palpable lymph nodes/no lymphedema. MUSCULOSKELETAL: Normal joints with no swelling. Muscle tone is normal. LABS: Hgb 12.6, hct 40, WBC 8,300 normal differential, creatinine 0.9, BUN 27, potassium 3.9. Estimated GFR 57cc per minute. ASSESSMENT: 1. Acute bronchitis with severe chronic lung disease, seems to be under control 2. Left lower extremity swelling is much less, practically trace swelling noted. Arterial circulation seems to be very adequate but this patient's problems, The patient's cardiovascular status is stable with no evidence of CHF or coronary insufficiency. PLAN: 1. Continue the same treatment with steroids, antibiotics and NEBS TIME SPENT: More than 30 minutes. Plan and coordination of the patient's care discussed in the presence of nurse. ARASH
--- NOTE | 2019-05-10 13:55 | PN ---
DATE OF SERVICE: 04/30/19 SUBJECTIVE: The patient was seen and examined this morning. The patient is more short of breath today. Chest x-ray is going to be done. The patient's condition seems to be stable but cardiac status is stable. Respiratory status seems to have worsened a little bit. Will monitor it. The patient was seen and examined with the nurse practitioner. TIME SPENT: More than 30 minutes. Plan and coordination of the patient's care discussed in the presence of nurse. ARASH
== END 2019-05-03 13:55 | disposition home or self-care (01) | DRG 204 ==
LOC: MEDSURG B 11:45
PROVIDERS: ADMIT Internal Medicine; ATTEND Internal Medicine

== ENCOUNTER 2019-10-04 15:03 | Observation (INO) ==
--- NOTE | 2019-10-04 16:03 | ED.PDOC ---
General ED Provider: Dr. JUNE HARDEN MD Chief Complaint: Abnormal Labs Stated Complaint: high INR Time Seen by Physician: 16:03 Mode of Arrival: Ambulance Information Source: Patient and Care Home Primary Care Provider: BIJAN ROWE Nursing and Triage Documentation Reviewed and Agree: Yes Does patient meet sepsis criteria?: No System Inflammatory Response Syndrome: Not Applicable Sepsis Protocol: For patient's 13 years and over: Temp is 96.8 and below OR 101 and greater Pulse >90 BPM Resp >20/minute Acutely Altered Mental Status Are patient's symptoms suggestive of a new infection, such as: -Pneumonia -Skin, Soft Tissue -Endocarditis -UTI -Bone, Joint Infection -Implantable Device -Acute Abdominal Infection -Wound Infection -Meningitis -Blood Stream Catheter Infection -Unknown Miscellaneous Complaint Exam Complex/Multi-System Complaint/Exam Onset/Duration: today Symptoms Are: Still present Initial Severity: Moderate Current Severity: Moderate Location of Pain: none Aggravating: none Alleviating: none Associated Signs and Symptoms: Reports Anticoagulation Therapy; Denies Hemoptysis, Nausea, Vomiting and Hematemesis Related History: Recent Illness Respiratory Distress: None JVD Present: No Tachypnea Present: No Stridor Present: No Abdominal Findings: Present Normal findings Glascow Coma Scale (see protocol): 15 Focal Weakness: Present None Focal Sensory Loss: Present None Gait: Unable (L AKA) Skin Findings: Present Normal findings Differential Diagnosis: Other (supratherapeutic INR) Review of Systems Review Of Systems Constitutional: Reports No symptoms GI: Denies Blood streaked bowels, Nausea, Rectal bleeding and Vomiting : Denies Hematuria All Other Systems: Reviewed and Negative [facility] Medical History Abnormal liver function Back pain Brain bleed CAD (coronary artery disease) COPD (chronic obstructive pulmonary disease) Degenerative joint disease of spine Depression DVT (deep venous thrombosis) Elevated cholesterol Hypertension Hypothyroid Neuropathy Osteoarthritis Ovarian cyst PAD (peripheral artery disease) Pedal edema Stroke Tibia fracture Family History FATHER Colon cancer Mother Colon cancer Other Pancreatic cancer Social History Smoking and tobacco status: Former smoker History of recent travel: No Female Reproductive History Menstrual Hx Hysterectomy: No Physical Exam Physical Exam Appearance: Reports Well-appearing and Well-nourished Ill-appearing: None Pain Distress: None Eyes: Reports DICK, EOMI and Conjunctiva clear ENT: Reports Nose normal Neck: Nonsupple Respiratory: Reports Airway patent, Breath sounds clear, Breath sounds equal and Breath sounds diminished Cardiovascular: Reports RRR GI/: Reports Soft, Nontender and Bowel sounds normal Musculoskeletal: Reports Normal strength, ROM intact and Other (left AKA) Skin: Reports Warm, Dry and Normal color Neurological: Reports Sensation intact, Motor intact, Cranial nerves intact, Alert and Oriented Psychiatric: Reports Affect appropriate and Mood appropriate Course Course Hematology/Chemistry: 10/04/19 16:12 10/04/19 16:12 Orders, Labs, Meds: Lab Review 10/04/19 10/04/19 10/04/19 16:12 16:12 16:12 WBC 3.82 L RBC 3.87 L Hgb 11.4 L Hct 35.9 L MCV 92.8 MCH 29.5 MCHC 31.8 RDW Coeff of Nataliya 15.2 H Plt Count 171 Immature Gran % (Auto) 0.3 Neut % (Auto) 58.6 Lymph % (Auto) 24.1 [place] % (Auto) 9.7 Eos % (Auto) 6.3 Baso % (Auto) 1.0 Neut # (Auto) 2.2 Lymph # (Auto) 0.9 [place]ier # (Auto) 0.4 Eos # (Auto) 0.2 Baso # (Auto) 0.0 Immature Gran # (Auto) 0.0 PT 89.8 H INR 10.46 H* APTT 48.3 H Sodium 136.3 Potassium 3.74 Chloride 101.9 Carbon Dioxide 28.7 Anion Gap 9.44 BUN 16.0 Creatinine 0.97 Estimated GFR (MDRD) 55.00 BUN/Creatinine Ratio 16.49 Glucose 94.1 Calcium 10.17 Magnesium 2.05 Total Bilirubin 0.28 AST 24.4 ALT 10.6 Alkaline Phosphatase 75.3 Total Protein 6.65 Albumin 3.88 Globulin 2.77 Albumin/Globulin Ratio 1.40 Orders Category Date Time Status CBC W/ AUTO DIFF Stat LAB 10/04/19 16:12 Completed COMPREHENSIVE METABOLIC PANEL Stat LAB 10/04/19 16:12 Completed MAGNESIUM Stat LAB 10/04/19 16:12 Completed PARTIAL THROMBOPLASTIN TIME Stat LAB 10/04/19 16:12 Completed PT WITH INR Stat LAB 10/04/19 16:12 Completed Labs posted, INR elevated at 10.46. She has no active bleeding. I spoke with her PCP, Dr Rowe, who accepted her for an Observation stay. He would like her to get a PO Vitamin K as per protocol. Patient was in good condition when transported from the ED to the floor. Vital Signs: Temp Pulse Resp BP Pulse Ox 10/04/19 15:04 98.6 F 71 18 129/55 L 98 Discharge Plan Discharge Prescriptions: No Action warfarin [Coumadin] 3 MG tablet 4 mg PO DAILY RF: 0 lisinopril 10 MG tablet 20 mg PO DAILY RF: 0 ferrous sulfate 325 MG tablet,delayed release (DR/EC) 325 mg PO BID RF: 0 potassium chloride 10 mEq Tablet Extended Release 10 meq PO 3 TIMES PER WEEK RF: 0 furosemide 20 mg Tablet 20 mg PO 3 TIMES PER WEEK RF: 0 escitalopram oxalate [Lexapro] 10 mg Tablet 10 mg PO DAILY RF: 0 Calcium 600 + D(3) 600 mg calcium- 200 unit Capsule 1 cap PO BID RF: 0 levothyroxine 75 MCG tablet 75 mcg PO DAILY RF: 0 diphenhydramine HCl [Benadryl] 25 mg Capsule 25 mg PO BEDTIME PRN (Reason: Insomnia) RF: 0 gabapentin 100 mg Capsule 300 mg PO BEDTIME RF: 0 loratadine [Claritin] 10 mg Tablet 10 mg PO DAILY RF: 0 docusate sodium [Colace] 100 mg Capsule 100 mg PO DAILY PRN (Reason: Constipation) RF: 0 prednisone 10 mg Tablet 10 mg PO BID Qty: 10 RF: 0 cefdinir 300 mg Capsule 300 mg PO BID Qty: 10 RF: 0 ipratropium-albuterol 0.5 mg-3 mg(2.5 mg base)/3 mL Solution For Nebulization 3 ml INHALATION QID Qty: 120 RF: 0 hydrocodone-acetaminophen 1 EACH tablet 1 tab PO TID PRN (Reason: pain) Qty: 90 RF: 0 alprazolam 0.5 mg Tablet 0.5 mg PO TID PRN (Reason: Anxiety/Restlessness) Qty: 90 RF: 0 ED Provider: JUNE HARDEN
[2019-10-04 16:14] LABS: HEMATOCRIT 35.9 % (37.0-47.0)
[2019-10-04] MEDS ORDERED: MEPHYTON PO STA (18:02)
[2019-10-04] MEDS ORDERED: TYLENOL PO PRN (18:04)
[2019-10-04] MEDS ORDERED: MILK OF MAGNESIA PO PRN (19:00)
[2019-10-04] MEDS ORDERED: LASIX TAB PO SCH (19:00)
[2019-10-04] MEDS ORDERED: BENADRYL PO PRN (19:00)
[2019-10-04] MEDS ORDERED: DULCOLAX RC PRN (19:00)
[2019-10-04 20:28] VITALS: BMI 20.8
[2019-10-04] MEDS: XANAX PO SCH (20:41)
[2019-10-04] MEDS: LIPITOR PO SCH (20:41)
[2019-10-04] MEDS: COLACE PO SCH (20:41)
[2019-10-04] MEDS: NORCO 5-325 PO PRN (20:44)
[2019-10-04] MEDS ORDERED: CALCIUM CARBONATE VITAMIN D3 PO SCH (21:00)
[2019-10-04] MEDS ORDERED: SODIUM HYPOCHLORITE TP SCH (21:00)
[2019-10-05 04:24] LABS: HEMATOCRIT 33.9 % (37.0-47.0)
[2019-10-05] MEDS ORDERED: SYNTHROID PO SCH (05:00)
[2019-10-05] MEDS: SYNTHROID PO SCH (05:35)
[2019-10-05] MEDS ORDERED: MEPHYTON PO STA (08:04)
[2019-10-05] MEDS: FERROUS SULFATE PO SCH (08:48)
[2019-10-05] MEDS: XANAX PO SCH ×3 (08:48→20:47)
[2019-10-05] MEDS: ZESTRIL PO SCH (08:48)
[2019-10-05] MEDS: COLACE PO SCH ×2 (08:48→20:48)
[2019-10-05] MEDS: MULTIVITAMIN TABLET PO SCH (08:49)
[2019-10-05] MEDS: TRIGLIDE PO SCH (08:49)
[2019-10-05] MEDS: CALCIUM 500 + VIT D 200 MG TABLET PO SCH ×2 (08:49→20:48)
[2019-10-05] MEDS: LEXAPRO PO SCH (08:49)
[2019-10-05] MEDS: SANTYL TP SCH (08:50)
[2019-10-05] MEDS: CLARITIN PO SCH (08:50)
[2019-10-05] MEDS: K-DUR PO SCH ×2 (08:50→17:40)
[2019-10-05] MEDS: SODIUM HYPOCHLORITE TP SCH ×2 (09:00→20:49)
[2019-10-05] MEDS ORDERED: CETIRIZINE 10 MG PO SCH (09:00)
--- NOTE | 2019-10-05 09:10 | PCM.PROG ---
Attending Provider: ATTENDING PROVIDER: Dr. BIJAN ROWE This patient is seen with Chioma Honeycutt, Nurse Practitioner. DATE OF SERVICE: 10/05/19 SUBJECTIVE: This 84 year old /WHITE F was hospitalized 10/04/19. The patient is resting comfortably in the bed. Wound vac is in place on left leg stump. She is complaining of mild pain to left leg stump. INR improved this morning. Will give Vitamin K 2.5mg today. REVIEW OF SYSTEMS: CONSTITUTIONAL: No night sweats. No fatigue, malaise, lethargy. No fever or chills. HEENT: Eyes: No visual changes. No eye pain. No eye discharge. ENT: No runny nose. No epistaxis. No sinus pain. No odynophagia. No congestion. RESPIRATORY: No cough, no congestion. No hemoptysis. No shortness of breath. CARDIOVASCULAR: No angina symptoms. No CHF symptoms. No atypical chest pain for CAD. No palpitations. No orthopnea.. GASTROINTESTINAL: No abdominal pain. No nausea or vomiting. No diarrhea or constipation. No hematemesis. No hematochezia. GENITOURINARY: No urgency. No frequency. No dysuria. No hematuria. No obstructive symptoms. No discharge. No pain. No significant abnormal bleeding. MUSCULOSKELETAL: No musculoskeletal pain; no joint swelling. Left leg stump pain. Weakness. NEUROLOGICAL: Awake, alert, oriented to time, place and person. No headache. No neck pain. No syncope. No seizures. No dizziness. PSYCHIATRIC: Not anxious. No depression. No suicidal thoughts. No homicidal thoughts. SKIN: No rash. No lesions. No wounds. ENDOCRINE: No unexplained weight loss. No weight gain. HEMATOLOGIC/LYMPHATIC: No anemia. No purpura. No petechiae. No prolonged or excessive bleeding. No palpable lymph nodes. PHYSICAL EXAMINATION: GENERAL: The patient is awake, alert and oriented, lying in bed in no distress. VITAL SIGNS: Temperature 98.0 F, Pulse 64, Respiratory Rate 18, BP 96/51, Pulse Ox 96% HEENT: Head normocephalic, atraumatic. Eyes: Extraocular muscles are intact. Pupils are equal, round and reactive to light and accommodation. Ears: No lesions. Nose appeared normal. Throat: No exudate or erythema. NECK: Supple. No JVD, no carotid bruit. No lymphadenopathy or thyromegaly. LUNGS: Diminished breath sounds. Clear to auscultation. Percussion note normal. Chest symmetrical. HEART: S1, S2, no S3. No murmurs. No cyanosis or clubbing. No ascites. Pulses: Dorsalis pedis and posterior tibial pulses +1 to +2 both sides. ABDOMEN: Soft. Non-tender. Bowel sounds active. No CVA tenderness. No mass felt. EXTREMITIES: Left stump no redness or signs of infection. No edema. Full range of motion of all extremities, equal. NEUROLOGIC: No focal deficit. Cranial nerves II through XII are grossly intact. No headache, no double vision or headache. SKIN: Not dry. Intact. Turgor-normal. LYMPHATIC: No palpable lymph nodes/no lymphedema. MUSCULOSKELETAL: Normal joints with no swelling. Muscle tone is normal. LAB REVIEW: 10/05/19 04:17 10/05/19 04:17 10/05/19 04:17: Sodium 135.6, Potassium 3.34 L, Chloride 103.2, Carbon Dioxide 26.9, Anion Gap 8.84, BUN 16.0, Creatinine 0.90, Estimated GFR (MDRD) 60.00, BUN/Creatinine Ratio 17.77, Glucose 88.6, Calcium 9.46, Total Bilirubin 0.34, AST 24.6, ALT 9.4, Alkaline Phosphatase 62.2, Total Protein 5.96 L, Albumin 3.37 L, Globulin 2.59, Albumin/Globulin Ratio 1.30 10/05/19 04:17: WBC 3.70 L, RBC 3.61 L, Hgb 10.5 L, Hct 33.9 L, MCV 93.9, MCH 29.1, MCHC 31.0 L, RDW Coeff of Nataliya 15.0 H, Plt Count 161, Immature Gran % (Auto) 0.3, Neut % (Auto) 50.8, Lymph % (Auto) 28.6, Bates % (Auto) 11.6 H, Eos % (Auto) 7.3 H, Baso % (Auto) 1.4, Neut # (Auto) 1.9 L, Lymph # (Auto) 1.1, Bates # (Auto) 0.4, Eos # (Auto) 0.3, Baso # (Auto) 0.1, Immature Gran # (Auto) 0.0 10/05/19 04:17: PT 64.2 H D, INR 7.33 H* D 10/04/19 16:12: Sodium 136.3, Potassium 3.74, Chloride 101.9, Carbon Dioxide 28.7, Anion Gap 9.44, BUN 16.0, Creatinine 0.97, Estimated GFR (MDRD) 55.00, BUN/Creatinine Ratio 16.49, Glucose 94.1, Calcium 10.17, Magnesium 2.05, Total Bilirubin 0.28, AST 24.4, ALT 10.6, Alkaline Phosphatase 75.3, Total Protein 6.65, Albumin 3.88, Globulin 2.77, Albumin/Globulin Ratio 1.40 10/04/19 16:12: PT 89.8 H, INR 10.46 H*, APTT 48.3 H 10/04/19 16:12: WBC 3.82 L, RBC 3.87 L, Hgb 11.4 L, Hct 35.9 L, MCV 92.8, MCH 29.5, MCHC 31.8, RDW Coeff of Nataliya 15.2 H, Plt Count 171, Immature Gran % (Auto) 0.3, Neut % (Auto) 58.6, Lymph % (Auto) 24.1, Bates % (Auto) 9.7, Eos % (Auto) 6.3, Baso % (Auto) 1.0, Neut # (Auto) 2.2, Lymph # (Auto) 0.9, Bates # (Auto) 0.4, Eos # (Auto) 0.2, Baso # (Auto) 0.0, Immature Gran # (Auto) 0.0 ASSESSMENT: Please see below. 1. Hypercoagulation 2. Severe PAD, Chronic anticoagulation 3. Status post left above knee amputation 4. COPD 5. Generalized weakness PLAN: 1. Continue to hold Coumadin 2. Vitamin K 2.5mg today 3. Continue daily INR 4. Goal INR between 1.8 and 2.8. Plan and coordination of the patient's care discussed in the presence of Nursery School Teacher and nurse. SCRIBED BY: FRANK PEOPLES Dog Hair Clipper scribed while in presence of service performed by Dr. Rowe/Chioma Honeycutt APRN on 10/05/19 ([id number])
--- NOTE | 2019-10-05 13:58 | HP ---
DATE OF SERVICE: 10/04/2019 REASON FOR HOSPITALIZATION/HISTORY OF PRESENT ILLNESS: 84 year old white female who is currently at [facility] after having a left above the knee amputation. INR was found to be 10. She is on Coumadin for severe peripheral arterial disease. 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 Levine Left above the knee amputation on 08/15/2019 Positive pseudomonas and proteus infection two would following left above the knee amputation, has a Wound Vac in place. Finished Levaquin on 09/06/19 as being followed by Dr. Christian Wall REVIEW OF SYSTEMS: CONSTITUTIONAL: No night sweats. No fatigue, malaise, lethargy. No fever or chills. HEENT: Eyes: No visual changes. No eye pain. No eye discharge. ENT: No runny nose. No epistaxis. No sinus pain. No sore throat. No odynophagia. No ear pain. No congestion. RESPIRATORY: No cough, no congestion. No hemoptysis. No shortness of breath. CARDIOVASCULAR: No angina symptoms. No CHF symptoms. No atypical chest pain for CAD. No palpitations. No PND. No orthopnea. GASTROINTESTINAL: No abdominal pain. No nausea or vomiting. No diarrhea or constipation. No hematemesis. No hematochezia. GENITOURINARY: No urgency. No frequency. No dysuria. No hematuria. No obstructive symptoms. No discharge. No pain. No significant abnormal bleeding. MUSCULOSKELETAL: No musculoskeletal pain. No joint swelling. No arthritis. Weakness. Left leg pain. NEUROLOGICAL: No headache. No neck pain. No syncope. No seizures. No dizziness. PSYCHIATRIC: Not anxious. No depression. No suicidal thoughts. No homicidal thoughts. SKIN: No rash. No lesions. No wounds. ENDOCRINE: No unexplained weight loss. No weight gain. HEMATOLOGIC/LYMPHATIC: No anemia. No purpura. No petechiae. No prolonged or excessive bleeding. No palpable lymph nodes. PERSONAL/FAMILY/SOCIAL HISTORY: She is a former smoker. She currently lives at home with her daughter. She is and no alcohol or illicit drug use. MEDICATIONS: Coumadin 5mg PO daily Lisinopril 20mg PO daily Ferrous Sulfate 325mg PO daily Levothyroxine 75mcg PO 0500 Lexapro 10mg PO daily Calcium carbonate-vitamin D3 600mg-200 units capsule PO BID Benadryl 25mg PO bedtime PRN Collagenase Clostridium one application Topical daily Bisacodyl 10mg MS daily PRN Acetaminophen 325mg PO W 4 hours PRN Sodium hypochlorite one application topical BID Multivitamin PO daily Milk of Magnesia 5ml PO daily PRN Feno fibrate 54mg PO daily Cetirizine 10mg PO daily Atorvastatin 40mg PO bedtime Hydrocodone-acetaminophen 5-325 PO Q 6 hours PRN Ipratropium-albuterol 3ml inhalation Alprazolam 0.25mg PO TID PRN ALLERGIES: Propoxyphene Denosumab PHYSICAL EXAMINATION: GENERAL: The patient is VITAL SIGNS: Temperature 98.6, heart rate 71, respiratory rate 18, blood pressure 129/55, pulse ox 98%. HEENT: Head normocephalic, atraumatic. Eyes: Extraocular muscles are intact. Pupils are equal, round and reactive to light and accommodation. Ears: No lesions. Nose appeared normal. Throat: No exudate or erythema. NECK: Supple. No JVD, no carotid bruit. No lymphadenopathy or thyromegaly. LUNGS: Diminished breath sounds bilaterally. Clear to auscultation. Percussion note normal. Chest symmetrical. HEART: S1, S2, no S3. No murmur. No cyanosis or clubbing. No ascites. Pulses: Dorsalis pedis and posterior tibial pulses +1 to +2 bilaterally. ABDOMEN: Soft. Nontender. Bowel sounds active. No CVA tenderness. No mass felt. EXTREMITIES: No edema. Full range of motion of all extremities, equal. NEUROLOGIC: No focal deficit. Cranial nerves II through XII are grossly intact. No headache, no double vision or headache. Wound vac in place on left lower extremity, no drainage. No erythema. SKIN: Not dry. Intact. Turgor - normal. LYMPHATIC: No palpable lymph nodes/no lymphedema. MUSCULOSKELETAL: Normal joints with no swelling. Muscle tone is normal. LABS: INR 10.46 with PTT 48.3, PT 89.8, sodium 136, potassium 3.7, BUN 16, creatinine 0.97, AST 24, ALT 10, total protein 6.6, Albumin 3.8, WBC 3.8, Hgb 11.4, hct 35.9, plt count 171. She had an echo by Dr. Brian at [facility] on 08/04/2019. ASSESSMENT: 1. Hypercoagulation 2. History of DVT 3. Severe peripheral arterial disease 4. Status post left above the knee amputation 08/11/2019 with positive proteus and pseudomonas infection - resolved 5. COPD 6. Chronic anticoagulation 7. Anemia PLAN: 1. We will admit 2. Routine telemetry orders 3. CBC and CMP, INR daily 4. Patient is admitted to observation 5. 5mg of Vitamin K now 6. We will recheck INR tomorrow 7. Continue all home medications with the exception for Coumadin, Hold the Coumadin 8. Oxygen 1-2 liters as needed 9. Fall precautions 10.Regular diet Will follow closely. TIME SPENT: More than 70 minutes. MTDD
--- NOTE | 2019-10-05 14:17 | PN ---
DATE OF SERVICE: 10/04/2019 ADMIT NOTE SUBJECTIVE: The patient was hospitalized because of high INR was more than 10 so she was advised to go to the emergency room. She is a resident of long-term. The patient was seen and examined by the attending. The patient had no evidence of GI bleeding or intracranial more or less stable. She is going to be hospitalized on Observation with INR, coagulopathy. She will be given PO Vitamin K and INR will be monitored. CONDITION: Stable TIME SPENT: More than 30 minutes. Plan and coordination of the patient's care discussed in the presence of nurse. ARASH
--- NOTE | 2019-10-05 14:19 | PN ---
DATE OF SERVICE: 10/05/2019 SUBJECTIVE: The history and physical was done with the Nurse Practitioner. The patient was seen and examined with Nurse Practitioner. Today INR is 7. Cardiovascular status is stable. No evidence of GI bleed. She is oriented to person and place. CONDITION: Stable TIME SPENT: More than 30 minutes. Plan and coordination of the patient's care discussed in the presence of nurse. ARASH
[2019-10-05] MEDS: LIPITOR PO SCH (20:48)
[2019-10-05] MEDS: NORCO 5-325 PO PRN (20:48)
[2019-10-06 04:27] LABS: HEMATOCRIT 33.6 % (37.0-47.0)
[2019-10-06] MEDS: SYNTHROID PO SCH (05:38)
[2019-10-06] MEDS ORDERED: LASIX TAB PO SCH (06:30)
[2019-10-06] MEDS ORDERED: K-DUR PO SCH (08:30)
[2019-10-06] MEDS: XANAX PO SCH (08:42)
[2019-10-06] MEDS: MULTIVITAMIN TABLET PO SCH (08:44)
[2019-10-06] MEDS: CLARITIN PO SCH (08:44)
[2019-10-06] MEDS: COLACE PO SCH (08:44)
[2019-10-06] MEDS: TRIGLIDE PO SCH (08:44)
[2019-10-06] MEDS: FERROUS SULFATE PO SCH (08:44)
[2019-10-06] MEDS: CALCIUM 500 + VIT D 200 MG TABLET PO SCH (08:45)
[2019-10-06] MEDS: ZESTRIL PO SCH ×2 (08:45→10:18)
[2019-10-06] MEDS: LEXAPRO PO SCH (08:46)
[2019-10-06 10:01] VITALS: TEMP 97.9
[2019-10-06] MEDS: SODIUM HYPOCHLORITE TP SCH (10:16)
[2019-10-06] MEDS: SANTYL TP SCH (10:30)
[2019-10-06] MEDS ORDERED: COUMADIN PO STA (12:02)
[2019-10-06 14:35] VITALS: BP 127/62
[2019-10-06] MEDS ORDERED: XANAX PO SCH (15:00)
[2019-10-07] MEDS ORDERED: ZESTRIL PO SCH (09:00)
--- NOTE | 2019-10-07 10:54 | SSS ---
DATE OF SERVICE: 10/06/2019 REASON FOR CONSULTATION/ADMISSION: Increased PT/INR HISTORY OF PRESENT ILLNESS: The patient's labs were drawn 10/04/2019 showing pT 86.3 with INR 10.04. The patient is on Coumadin 5mg daily for severe PAD. REVIEW OF SYSTEMS: CONSTITUTIONAL: No night sweats. No fatigue, malaise, lethargy. No fever or chills. HEENT: Eyes: No visual changes. No eye pain. No eye discharge. ENT: No runny nose. No epistaxis. No sinus pain. No sore throat. No odynophagia. No ear pain. No congestion. RESPIRATORY: No cough, no congestion. No hemoptysis. No shortness of breath. CARDIOVASCULAR: No angina symptoms. No CHF symptoms. No atypical chest pain for CAD. No palpitations. No orthopnea. GASTROINTESTINAL: No abdominal pain. No nausea or vomiting. No diarrhea or constipation. No hematemesis. No hematochezia. GENITOURINARY: No dysuria. No hematuria. No obstructive symptoms. No discharge. No pain. No significant abnormal bleeding. MUSCULOSKELETAL: No musculoskeletal pain. No joint swelling. Left above the knee amputation with slight swelling noted. NEUROLOGICAL: Awake, alert, oriented to time, place and person. No headache. No neck pain. No syncope. No seizures. No dizziness. LEFT AKA. PSYCHIATRIC: Not anxious. No depression. No suicidal thoughts. No homicidal thoughts. SKIN: No rash. No lesions. No wounds. ENDOCRINE: No unexplained weight loss. No weight gain. HEMATOLOGIC/LYMPHATIC: No anemia. No purpura. No petechiae. No prolonged or excessive bleeding. No palpable lymph nodes. PAST HISTORY: History of DVT PAD CKD-3 Hypertension Anemia Dyslipidemia Hypothyroidism Carotid stenosis AAA CAD CVA Anxiety Depression Fem TIB bypass Left hip Hemiarthroplasty Left AKA Post-OP wound infection left pseudomonas and Proteus treated with Levaquin has wound vac left AKA. IVC filter Heart cath Left carotid endarterectomy PERSONAL/FAMILY HISTORY/SOCIAL HISTORY: . Resides at [facility] [place] for therapy following several surgical procedures in july. Former smoker. No alcohol use. uses O2. Previously lived with daughter. PHYSICAL EXAMINATION: GENERAL: The patient is an 84 year old female. Oriented times three. VITAL SIGNS: height 63 inches, weight 117, BMI 20.8, Temperature 98.7, pulse 60, respiratory rate 16, blood pressure 118/57 and pulse ox 98% on 2 liters. HEENT: Head normocephalic, atraumatic. Eyes: Extraocular muscles are intact. Pupils are equal, round and reactive to light and accommodation. Ears: No lesions. Nose appeared normal. Throat: No exudate or erythema. NECK: Supple. No JVD, no carotid bruit. No lymphadenopathy or thyromegaly. LUNGS: Decreased breath sounds. Clear to auscultation. Percussion note normal. Chest symmetrical. HEART: S1, S2, no S3. No murmurs. No cyanosis or clubbing. No ascites. Pulses: Dorsalis pedis and posterior tibial pulses +1 to +2 bilaterally. ABDOMEN: Soft. Nontender. Bowel sounds active. No CVA tenderness. No mass felt. EXTREMITIES: No edema. Full range of motion of all extremities, equal. NEUROLOGIC: No focal deficit. Cranial nerves II through XII are grossly intact. No headache, no double vision or headache. SKIN: Not dry. Intact. Turgor - normal. LYMPHATIC: No palpable lymph nodes/no lymphedema. MUSCULOSKELETAL: Normal joints with no swelling. Muscle tone is normal. Old/present records reviewed: Yes ALLERGIES: Denosumab Propoxyphene MEDICATIONS: MVI MOM Fenofibrate Cetirizine Bisacodyl Atorvastatin Acetaminophen Xanax Lexapro Coumadin Lisinopril Levothyroxine Lasix FeSo4 Colace Benadryl Calcium with Vitamin D [place] LABS/EKG'S/X-RAY/ECHO/ABG: PT 89.8, INR 10.46, WBC 3.82, hgb 11.4, hct 35.9, plt count 171. Sodium 136.3, potassium 3.74, chloride 101.9, bicarb 28.7, BUN 16, Creatinine 0.97 and glucose 94. PROGRESS NOTES: See EMR. DIAGNOSES: 1. Coagulopathy with increased INR with no complications from it. 2. Left above the knee amputation with infection with wound vac. RECOMMENDATIONS/PLAN: 1. 10/06/2019 Return to [facility] [place] 2. New orders decreased Zestril to 10mg daily start 10/07/2019 3. Decreased Coumadin to 4mg daily (5pm) next dose 10/07/2019 4. PT.INR on 10/11/2019 and weekly 5. CBC, CMP on 10/11/2019 and then every 3 months 6. Continue all other orders 7. K-Dur 20meq Friday, Friday and Friday 8. Keep appointments with Dr. Erickson 10/07/2019 TIME SPENT: More than 70 minutes. ARASH
--- NOTE | 2019-10-08 13:12 | PN ---
DATE OF SERVICE: 10/06/2019 SUBJECTIVE: The patient is feeling a lot better. She is oriented to time, place and person. Talks about in detail about her encounter she had with Dr. Erickson, [facility]. She is aware of the fact the her blood pressure was low so she is wondering about her blood pressure medication now. Also wanted to know what is the dose of Coumadin is going to be. The patient's INR is 1.46 this morning. We are going to start Coumadin 4mg daily and she is supposed to be on 5mg daily. REVIEW OF SYSTEMS: CONSTITUTIONAL: No night sweats. No fatigue, malaise, lethargy. No fever or chills. HEENT: Eyes: No visual changes. No eye pain. No eye discharge. ENT: No runny nose. No epistaxis. No sinus pain. No sore throat. No odynophagia. No congestion. RESPIRATORY: No cough, no congestion. No hemoptysis. No shortness of breath. CARDIOVASCULAR: No angina symptoms. No CHF symptoms. No atypical chest pain for CAD. No palpitations. No PND. No orthopnea. GASTROINTESTINAL: No abdominal pain. No nausea or vomiting. No diarrhea or constipation. No hematemesis. No hematochezia. GENITOURINARY: No urgency. No frequency. No dysuria. No hematuria. No obstructive symptoms. No discharge. No pain. No significant abnormal bleeding. MUSCULOSKELETAL: No musculoskeletal pain; no joint swelling. NEUROLOGICAL: No headache. No neck pain. No syncope. No seizures. No dizziness. PSYCHIATRIC: Not anxious. No depression. No suicidal thoughts. No homicidal thoughts. SKIN: No rash. No lesions. No wounds. ENDOCRINE: No unexplained weight loss. No weight gain. HEMATOLOGIC/LYMPHATIC: No anemia. No purpura. No petechiae. No prolonged or excessive bleeding. No palpable lymph nodes. PHYSICAL EXAMINATION: GENERAL: The patient is oriented to time, place and person. VITAL SIGNS: Temperature 97.5, pulse 70, respiratory 16, blood pressure 114/62 and pulse ox 100% on room air. HEENT: Head normocephalic, atraumatic. Eyes: Extraocular muscles are intact. Pupils are equal, round and reactive to light and accommodation. Ears: No lesions. Nose appeared normal. Throat: No exudate or erythema. NECK: Supple. No JVD, no carotid bruit. No lymphadenopathy or thyromegaly. LUNGS: Decreased breath sounds but clear to auscultation. Percussion note normal. Chest symmetrical. HEART: S1, S2, no S3. No murmurs. No cyanosis or clubbing. No ascites. Pulses: Dorsalis pedis and posterior tibial pulses +1 to +2 bilaterally. ABDOMEN: Soft. Nontender. Bowel sounds active. No CVA tenderness. No mass felt. EXTREMITIES: No edema. Full range of motion of all extremities. She is to see Dr. Irwin tomorrow. NEUROLOGIC: No focal deficit. Cranial nerves II through XII are grossly intact. No headache, no double vision or headache. SKIN: Not dry. Intact. Turgor - normal. LYMPHATIC: No palpable lymph nodes/no lymphedema. MUSCULOSKELETAL: Normal joints with no swelling. Muscle tone is normal. LABS: Hgb 10.3, hct 33,WBC 3,600 normal differential, creatinine 1.1, BUN 16, potassium 4.4 ASSESSMENT: 1. Above the knee amputation. The patient's stump with wound in place. PLAN: 1. The patient is going to be discharge on Zestril to be taken 10mg instead of 20 every morning 2. Coumadin is going to be 4mg 3. INR is going to be done four days from now. This is next Friday. 4. CBC and CMP to be done in a week and after that every 3 monthly 5. 20meq three times a week with the Lasix 6. The patient is strongly advised to followup with the Wound Care and Dr. Erickson, vascular surgeon. CONDITION:Stable TIME SPENT: More than 30 minutes. Plan and coordination of the patient's care discussed in the presence of nurse. ARASH
--- NOTE | 2019-10-08 13:13 | PN ---
10/04/2019: Observation Level 5 10/05/2019: Intermediate 10/06/2019: D as in discharge MTDD
== END 2019-10-06 15:35 ==
LOC: MEDSURG B 15:03 → ED 15:03 → MEDSURG B 18:29
PROVIDERS: ADMIT Internal Medicine; ATTEND Internal Medicine
DX: Z98.890 Other specified postprocedural states; Z86.79 Personal history of other diseases of the circulatory system; I10 Essential (primary) hypertension; Z86.718 Personal history of other venous thrombosis and embolism; E03.9 Hypothyroidism, unspecified; Z79.899 Other long term (current) drug therapy; R53.1 Weakness; Z79.01 Long term (current) use of anticoagulants; D64.9 Anemia, unspecified; D68.59 Other primary thrombophilia; N18.3 Chronic kidney disease, stage 3 (moderate); I65.29 Occlusion and stenosis of unspecified carotid artery; G89.18 Other acute postprocedural pain; Z86.73 Personal history of transient ischemic attack (TIA), and cerebral infarction without residual deficits; J44.9 Chronic obstructive pulmonary disease, unspecified; I73.9 Peripheral vascular disease, unspecified; Z89.612 Acquired absence of left leg above knee; Z51.81 Encounter for therapeutic drug level monitoring; E78.5 Hyperlipidemia, unspecified; I25.10 Atherosclerotic heart disease of native coronary artery without angina pectoris

== ENCOUNTER 2020-07-26 01:03 | Inpatient (IN) ==
--- NOTE | 2020-07-26 01:25 | ED.PDOC ---
General ED Provider: Dr. EFREM IZAGUIRRE Chief Complaint: Shortness of Air Stated Complaint: im coughing up green stuff and im so weak Time Seen by Provider: 07/26/20 01:06 Mode of Arrival: Ambulance Information Source: Patient and EMT Primary Care Provider: BIJAN GILMORE Nursing and Triage Documentation Reviewed and Agree: Yes Does patient meet sepsis criteria?: No System Inflammatory Response Syndrome: Not Applicable Sepsis Protocol: For patient's 13 years and over: Temp is 96.8 and below OR 101 and greater Pulse >90 BPM Resp >20/minute Acutely Altered Mental Status Are patient's symptoms suggestive of a new infection, such as: -Pneumonia -Skin, Soft Tissue -Endocarditis -UTI -Bone, Joint Infection -Implantable Device -Acute Abdominal Infection -Wound Infection -Meningitis -Blood Stream Catheter Infection -Unknown Respiratory Complaint Exam Respiratory Complaint/Exam Onset/Duration: 3-4 days Symptoms Are: Still present Timing: Intermittent Initial Severity: Mild Current Severity: Moderate Character: Reports Productive cough Aggravating: Reports None Home Oxygen Use: No Recent Stress Test: No Recent Echo/LV Function: No Current Antibiotic Use: No Current Asthma Medication Use: No Respiratory Distress: None Inadequate Respiratory Effort: No Dysphagia Present: No Stridor Present: No JVD Present: No Accessory Muscle Use: No Retractions: Not Present Diminished Breath Sounds: No Sinus Tenderness: None Grunting Respirations: No Kussmaul Respirations: No Differential Diagnoses: Pneumonia Non-Traumatic Chest Pain Syncope: EKG Performed Review of Systems Review Of Systems Constitutional: Reports Weakness Eyes: Reports No symptoms Ears, Nose, Mouth, Throat: Reports No symptoms Respiratory: Reports Cough Cardiac: Reports No symptoms GI: Reports No symptoms : Reports No symptoms Musculoskeletal: Reports No symptoms Skin: Reports No symptoms Neurological: Reports No symptoms Endocrine: Reports No symptoms Hematologic/Lymphatic: Reports No symptoms All Other Systems: Reviewed and Negative [facility] Medical History Abnormal liver function Amputation above knee Back pain Brain bleed CAD (coronary artery disease) COPD (chronic obstructive pulmonary disease) Degenerative joint disease of spine Depression DVT (deep venous thrombosis) Elevated cholesterol Hypertension Hypothyroid Neuropathy Osteoarthritis Ovarian cyst PAD (peripheral artery disease) Pedal edema Stroke Tibia fracture Family History FATHER Colon cancer Mother Colon cancer Other Pancreatic cancer Social History Smoking and tobacco status: Former smoker History of recent travel: No Surgical History History of intravascular stent placement Female Reproductive History Menstrual Hx Hysterectomy: No Physical Exam Physical Exam Appearance: Reports Obese Ill-appearing: Not Applicable Pain Distress: Not Applicable Eyes: Reports DICK, EOMI and Conjunctiva clear ENT: Reports Ears normal, Nose normal and Oropharynx normal Neck: Supple Respiratory: Reports Airway patent, Breath sounds equal and Rhonchi Cardiovascular: Reports RRR, Pulses normal, No rub and No murmur GI/: Reports Soft, Nontender, No masses and Bowel sounds normal Musculoskeletal: Reports Normal strength, ROM intact, No edema and No calf tenderness Skin: Reports Warm, Dry and Normal color Neurological: Reports Sensation intact, Motor intact, Reflexes intact, Cranial nerves intact, Alert and Oriented Psychiatric: Reports Affect appropriate and Mood appropriate Interpretation Radiology Interpretation Radiology Interpretation By: Radiologist Radiology Results: Negative Exam Interpreted: CT Scan EKG Interpretation Time of EKG #1: 03:29 Rate: Normal Rhythm: Sinus Ectopy: None [place]: NL ST Segment: Normal Interpretation: nsr Physician Notification Case Discussed Physician Notified: dr gilmore Time of Notification: 05:11 Critical Care Note Critical Care Note Total Critical Care Time (mins): 0 Course Course Hematology/Chemistry: 07/26/20 01:30 07/26/20 01:30 Orders, Labs, Meds: Lab Review 07/26/20 07/26/20 07/26/20 01:07 01:30 01:30 WBC RBC Hgb Hct MCV MCH MCHC RDW Coeff of Nataliya Plt Count Immature Gran % (Auto) Neut % (Auto) Lymph % (Auto) Burke % (Auto) Eos % (Auto) Baso % (Auto) Neut # (Auto) Lymph # (Auto) Burke # (Auto) Eos # (Auto) Baso # (Auto) Immature Gran # (Auto) PT INR Puncture Site Rbrach Base Excess 0.8 O2 Saturation 84.3 L ABG pH 7.42 ABG pCO2 39.0 ABG pO2 48.0 L* ABG HCO3 25.3 ABG Total CO2 26.5 H Micheal Test + Hemoglobin 1.0 Oxyhemoglobin 83.2 L Carboxyhemoglobin 3.4 H Total Hemoglobin 14.2 FiO2 % 21.0 Sodium 141.7 Potassium 3.24 L Chloride 107.2 H Carbon Dioxide 27.1 Anion Gap 10.64 BUN 11.7 Creatinine 0.77 Estimated GFR (MDRD) 71.00 BUN/Creatinine Ratio 15.19 Glucose 124.2 H Lactic Acid 1.51 Calcium 9.66 Total Bilirubin 0.97 AST 29.6 ALT 21.3 Alkaline Phosphatase 69.2 Total Creatine Kinase 32.4 Troponin I < 0.012 Total Protein 7.03 Albumin 4.04 Globulin 2.99 Albumin/Globulin Ratio 1.35 Urine Color Urine Clarity Urine pH Ur Specific [place] Urine Protein Urine Glucose (UA) Urine Ketones Urine Blood Urine Nitrite Urine Bilirubin Urine Urobilinogen Ur Leukocyte Esterase Urine Microscopic RBC Urine Microscopic WBC Ur Squamous Epith Cells Urine Bacteria Adenovirus (PCR) B. pertussis DNA (PCR) B.parapertussis DNA PCR C. pneumoniae DNA (PCR) Coronavirus OC43 (PCR) Coronavirus HKU1 (PCR) Coronavirus 229E (PCR) Coronavirus NL63 (PCR) Human Metapneumovir PCR Influenza Type A (PCR) Influenza B (RT-PCR) M. pneumoniae (PCR) Parainfluenza 1 (PCR) Parainfluenza 2 (PCR) Parainfluenza 3 (PCR) Parainfluenza 4 (PCR) RSV (PCR) Entero/Rhino (PCR) SARS-CoV-2 (PCR) 07/26/20 07/26/20 07/26/20 01:30 01:30 01:45 WBC 8.02 RBC 4.81 Hgb 14.4 Hct 44.6 MCV 92.7 MCH 29.9 MCHC 32.3 RDW Coeff of Nataliya 14.4 Plt Count 139 L Immature Gran % (Auto) 0.2 Neut % (Auto) 76.7 H Lymph % (Auto) 12.8 Burke % (Auto) 6.7 Eos % (Auto) 3.1 Baso % (Auto) 0.5 Neut # (Auto) 6.1 Lymph # (Auto) 1.0 Burke # (Auto) 0.5 Eos # (Auto) 0.3 Baso # (Auto) 0.0 Immature Gran # (Auto) 0.0 PT 23.9 H INR 2.23 Puncture Site Base Excess O2 Saturation ABG pH ABG pCO2 ABG pO2 ABG HCO3 ABG Total CO2 Micheal Test Hemoglobin Oxyhemoglobin Carboxyhemoglobin Total Hemoglobin FiO2 % Sodium Potassium Chloride Carbon Dioxide Anion Gap BUN Creatinine Estimated GFR (MDRD) BUN/Creatinine Ratio Glucose Lactic Acid Calcium Total Bilirubin AST ALT Alkaline Phosphatase Total Creatine Kinase Troponin I Total Protein Albumin Globulin Albumin/Globulin Ratio Urine Color Urine Clarity Urine pH Ur Specific [place] Urine Protein Urine Glucose (UA) Urine Ketones Urine Blood Urine Nitrite Urine Bilirubin Urine Urobilinogen Ur Leukocyte Esterase Urine Microscopic RBC Urine Microscopic WBC Ur Squamous Epith Cells Urine Bacteria Adenovirus (PCR) Not detected B. pertussis DNA (PCR) Not detected B.parapertussis DNA PCR Not detected C. pneumoniae DNA (PCR) Not detected Coronavirus OC43 (PCR) Not detected Coronavirus HKU1 (PCR) Not detected Coronavirus 229E (PCR) Not detected Coronavirus NL63 (PCR) Not detected Human Metapneumovir PCR Not detected Influenza Type A (PCR) Not detected Influenza B (RT-PCR) Not detected M. pneumoniae (PCR) Not detected Parainfluenza 1 (PCR) Not detected Parainfluenza 2 (PCR) Not detected Parainfluenza 3 (PCR) Not detected Parainfluenza 4 (PCR) Not detected RSV (PCR) Not detected Entero/Rhino (PCR) Not detected SARS-CoV-2 (PCR) Not detected 07/26/20 04:05 WBC RBC Hgb Hct MCV MCH MCHC RDW Coeff of Nataliya Plt Count Immature Gran % (Auto) Neut % (Auto) Lymph % (Auto) [place] % (Auto) Eos % (Auto) Baso % (Auto) Neut # (Auto) Lymph # (Auto) Burke # (Auto) Eos # (Auto) Baso # (Auto) Immature Gran # (Auto) PT INR Puncture Site Base Excess O2 Saturation ABG pH ABG pCO2 ABG pO2 ABG HCO3 ABG Total CO2 Micheal Test Hemoglobin Oxyhemoglobin Carboxyhemoglobin Total Hemoglobin FiO2 % Sodium Potassium Chloride Carbon Dioxide Anion Gap BUN Creatinine Estimated GFR (MDRD) BUN/Creatinine Ratio Glucose Lactic Acid Calcium Total Bilirubin AST ALT Alkaline Phosphatase Total Creatine Kinase Troponin I Total Protein Albumin Globulin Albumin/Globulin Ratio Urine Color Yellow Urine Clarity Cloudy Urine pH 7.0 Ur Specific [place] 1.025 Urine Protein Negative Urine Glucose (UA) Negative Urine Ketones Negative Urine Blood 2+ H Urine Nitrite Negative Urine Bilirubin Negative Urine Urobilinogen 1.0 H Ur Leukocyte Esterase 1+ H Urine Microscopic RBC 2-5 Urine Microscopic WBC 10-20 Ur Squamous Epith Cells 0-2 Urine Bacteria 4+ Adenovirus (PCR) B. pertussis DNA (PCR) B.parapertussis DNA PCR C. pneumoniae DNA (PCR) Coronavirus OC43 (PCR) Coronavirus HKU1 (PCR) Coronavirus 229E (PCR) Coronavirus NL63 (PCR) Human Metapneumovir PCR Influenza Type A (PCR) Influenza B (RT-PCR) M. pneumoniae (PCR) Parainfluenza 1 (PCR) Parainfluenza 2 (PCR) Parainfluenza 3 (PCR) Parainfluenza 4 (PCR) RSV (PCR) Entero/Rhino (PCR) SARS-CoV-2 (PCR) Orders Category Date Time Status ABG DRAW REQUEST Stat CARDIO 07/26/20 01:07 Completed EKG-(ED ONLY) Stat CARDIO 07/26/20 01:06 Completed STRAIGHT CATH INSERTION ONCE CARE 07/26/20 01:12 Active ED ASP NET SOFTWARE DEVELOPER APPLIED .ONCE EMERGENCY 07/26/20 01:06 Active ABG COOX Stat LAB 07/26/20 01:07 Completed BLOOD CULTURE (ED ONLY) Stat LAB 07/26/20 01:30 Received CBC W/ AUTO DIFF Stat LAB 07/26/20 01:30 Completed COMPREHENSIVE METABOLIC PANEL Stat LAB 07/26/20 01:30 Completed CREATINE KINASE Stat LAB 07/26/20 01:30 Completed LACTIC ACID Stat LAB 07/26/20 01:30 Completed PT WITH INR Stat LAB 07/26/20 01:30 Completed RESPIRATORY PANEL 2.1 (PCR) Stat LAB 07/26/20 01:45 Completed TROPONIN I Stat LAB 07/26/20 01:30 Completed URINALYSIS C & S IF INDICATED Stat LAB 07/26/20 04:05 Completed URINE CULTURE Stat LAB 07/26/20 04:[address] CHEST W/O CONTRAST Stat RADS 07/26/20 01:06 Completed Vital Signs: Temp Pulse Resp BP Pulse Ox 07/26/20 01:08 97.7 F 80 22 180/78 H 94 L Discharge Plan Discharge Patient Disposition: ADMITTED INPATIENT Discharge Problem: COPD exacerbation, Acute UTI, Acute hypoxemic respiratory failure Prescriptions: No Action ferrous sulfate 325 MG tablet,delayed release (DR/EC) 325 mg PO DAILY RF: 0 furosemide 20 mg Tablet 20 mg PO MOWESA RF: 0 escitalopram oxalate [Lexapro] 10 mg Tablet 10 mg PO DAILY RF: 0 Calcium 600 + D(3) 600 mg calcium- 200 unit Capsule 1 cap PO BID RF: 0 levothyroxine 75 MCG tablet 75 mcg PO 0500 RF: 0 diphenhydramine HCl [Benadryl] 25 mg Capsule 25 mg PO BEDTIME PRN (Reason: Insomnia) RF: 0 docusate sodium [Colace] 100 mg Capsule 100 mg PO BID RF: 0 ipratropium-albuterol 0.5 mg-3 mg(2.5 mg base)/3 mL solution for nebulization 3 ml INHALATION Q6H RF: 0 hydrocodone-acetaminophen 1 EACH tablet 1 tab PO Q6H PRN (Reason: pain) RF: 0 alprazolam 0.5 mg tablet 0.25 mg PO TID PRN (Reason: Anxiety/Restlessness) RF: 0 atorvastatin 40 mg Tablet 40 mg PO BEDTIME RF: 0 acetaminophen 325 mg Tablet 325 mg PO Q4H PRN (Reason: Fever) RF: 0 cetirizine 10 mg Tablet 10 mg PO DAILY RF: 0 magnesium hydroxide [Milk of Magnesia] 400 mg/5 mL Suspension 5 ml PO DAILY PRN (Reason: Constipation) RF: 0 bisacodyl 10 mg Suppository 10 mg [place] DAILY PRN (Reason: Constipation) RF: 0 collagenase clostridium histo. 250 unit/gram Ointment 1 applic TOPICAL DAILY RF: 0 multivitamin Capsule 1 cap PO DAILY RF: 0 sodium hypochlorite 0.0125 % Solution 1 applic TOPICAL BID RF: 0 fenofibrate 54 mg Tablet 54 mg PO DAILY RF: 0 lisinopril [Zestril] 10 mg Tablet 10 mg PO DAILY Qty: 30 RF: 0 warfarin [Coumadin] 5 mg Tablet 4 mg PO DAILY Qty: 30 RF: 0 potassium chloride 20 mEq Tablet Extended Release 20 meq PO MOWESA Qty: 30 RF: 0 ED Provider: EFREM IZAGUIRRE Condition: Fair Physician Progress Note: []
[2020-07-26 01:49] LABS: ALANINE AMINOTRANSFERASE 21.3 U/L (0-35); ALBUMIN 4.04 g/dL (3.5-5.0); ALKALINE PHOSPHATASE 69.2 U/L (53-141); ASPARTATE AMINO TRANSFERASE 29.6 U/L (14-36); BILIRUBIN,TOTAL 0.97 mg/dL (0.2-1.3); BLOOD UREA NITROGEN 11.7 mg/dL (7-17); CALCIUM 9.66 mg/dL (8.4-10.2); CARBON DIOXIDE 27.1 mmol/L (22-30.0); CHLORIDE 107.2 mmol/L (98-107); CREATINE KINASE 32.4 U/L (30-135); CREATININE 0.77 mg/dL (0.60-1.30); GLUCOSE 124.2 mg/dL (74-106); POTASSIUM 3.24 mmol/L (3.5-5.1); SODIUM 141.7 mmol/L (134.5-145); TOTAL PROTEIN 7.03 g/dL (6.3-8.2)
[2020-07-26 01:52] LABS: BASOPHILS % (AUTO) 0.5 % (0.0-3.0); EOSINOPHILS # (AUTO) 0.3 K/ul (0.0-0.7); EOSINOPHILS % (AUTO) 3.1 % (0.0-7.0); HEMATOCRIT 44.6 % (37.0-47.0); HEMOGLOBIN 14.4 g/dl (12.0-16.0); IMMATURE GRANULOCYTE % (AUTO) 0.2 % (0.0-5.0); LYMPHOCYTES % (AUTO) 12.8 (10.0-50.0); MEAN CORPUSCULAR HEMOGLOBIN 29.9 pg (27.0-31.0); MEAN CORPUSCULAR HGB CONC 32.3 (31.8-35.4); MEAN CORPUSCULAR VOLUME 92.7 fl (81.0-99.0); MONOCYTES # (AUTO) 0.5 K/uL (0.4-2.0); MONOCYTES % (AUTO) 6.7 (0-10); NEUTROPHILS # (AUTO) 6.1 K/ul (2.0-6.9); NEUTROPHILS % (AUTO) 76.7 % (42.2-75.2); PLATELET COUNT 139 10^3/uL (140-440); RDW COEFFICIENT OF VARIATION 14.4 % (11.6-14.8); RED BLOOD COUNT 4.81 10^6/ul (4.20-5.40); WHITE BLOOD COUNT 8.02 K/ul (4.6-10.2)
[2020-07-26 01:58] LABS: BORDETELLA PARAPERTUSSIS (PCR) NOT DETECTED (NOT DETECT); BORDETELLA PERTUSSIS (PCR) NOT DETECTED (NOT DETECT); CHLAMYDIA PNEUMONIAE (PCR) NOT DETECTED (NOT DETECT); CORONAVIRUS 229E (PCR) NOT DETECTED (NOT DETECT); CORONAVIRUS HKU1 (PCR) NOT DETECTED (NOT DETECT); CORONAVIRUS NL63 (PCR) NOT DETECTED (NOT DETECT); CORONAVIRUS OC43 (PCR) NOT DETECTED (NOT DETECT); HUMAN METAPNEUMOVIRUS (PCR) NOT DETECTED (NOT DETECT); HUMAN RHINOVIRUS/ENTEROV (PCR) NOT DETECTED (NOT DETECT); INFLUENZA B (PCR) NOT DETECTED (NOT DETECT); MYCOPLASMA PNEUMONIAE (PCR) NOT DETECTED (NOT DETECT); PARAINFLUENZA VIRUS 1 (PCR) NOT DETECTED (NOT DETECT); PARAINFLUENZA VIRUS 2 (PCR) NOT DETECTED (NOT DETECT); PARAINFLUENZA VIRUS 3 (PCR) NOT DETECTED (NOT DETECT); PARAINFLUENZA VIRUS 4 (PCR) NOT DETECTED (NOT DETECT); RESPIRATORY SYNCYTIAL V (PCR) NOT DETECTED (NOT DETECT); SARS_COV_2 (PCR) NOT DETECTED (NOT DETECT)
[2020-07-26 02:01] LABS: TROPONIN I < 0.012 ng/ml (0.0000-0.120)
--- NOTE | 2020-07-26 02:01 | CT ---
Exam: CT of the chest without contrast History: Cough, weakness Technique: [address] of the chest without contrast FINDINGS: Lung windows show severe emphysema. No infiltrative opacities. Granulomatous calcificati on bilaterally. No pathologic lymph node enlargement or abundance of mediastinum. Atherosclerotic c alcification of the aorta without aneurysm. No acute chest wall abnormality. Minor wedge and concav ity deformity of the T7 with chronic features. No acute findings of the upper abdomen. Impression: 1. No acute findings of the chest 2. Emphysema All CT scans are performed using dose optimization techniques as appropriate to the performed exam an d include at least one of the following: Automated exposure control, adjustment of the mA and/or kV according t o size, and the use of iterative reconstruction technique.
[2020-07-26 02:04] LABS: PROTHROMBIN TIME 23.9 SEC (9.3-11.0)
[2020-07-26 02:20] LABS: ABG PH 7.42 (7.35-7.45)
[2020-07-26 02:21] LABS: BEecf 0.8 (-2.0-3.0); COHb 3.4 (0.5-1.5); HCO3 25.3 (21-28); TCO2 26.5 (19-24); sO2 84.3 % (94-98); tHb 14.2 g/dl (11.7-17.4)
[2020-07-26 02:22] LABS: ABG O2 HGB 83.2 % (95-100)
[2020-07-26 02:43] LABS: ADENOVIRUS (PCR) NOT DETECTED (NOT DETECT)
[2020-07-26 04:58] LABS: BILIRUBIN,URINE Negative (NEGATIVE); CLARITY,URINE Cloudy (CLEAR); COLOR,URINE Yellow (YELLOW); GLUCOSE, URINE (UA) Negative (NEGATIVE); KETONES,URINE Negative (NEGATIVE); LEUKOCYTE ESTERASE ,URINE 1+ (NEGATIVE); NITRITE,URINE Negative (NEGATIVE); PROTEIN,URINE Negative (NEGATIVE); URINE, BLOOD 2+ (NEGATIVE)
[2020-07-26 05:06] LABS: BACTERIA,URINE 4+ (NOT PRESENT); SQUAMOUS EPITHELIAL CELL,UR 0-2 (0-5)
[2020-07-26] MEDS ORDERED: TYLENOL PO PRN (05:14)
[2020-07-26] MEDS ORDERED: MILK OF MAGNESIA PO PRN (05:18)
[2020-07-26] MEDS ORDERED: DULCOLAX RC PRN (05:18)
[2020-07-26] MEDS ORDERED: BENADRYL PO PRN (05:18)
[2020-07-26] MEDS ORDERED: XANAX PO PRN (05:18)
[2020-07-26] MEDS ORDERED: LASIX TAB PO SCH (05:30)
[2020-07-26] MEDS ORDERED: K-DUR PO SCH (05:30)
[2020-07-26] MEDS ORDERED: PROAIR HFA (SINGLE PATIENT USE) IH SCH (06:00)
[2020-07-26 06:24] VITALS: BMI 22.2
[2020-07-26] MEDS: SODIUM CHLORIDE 1,000 ML IV SCH ×2 (06:38→23:46)
[2020-07-26] MEDS: ROCEPHIN 1 GM/50 ML D5W 1 GM/50 ML BAG IV SCH (08:17)
[2020-07-26] MEDS: DOXYCYCLINE HYCLATE PO SCH ×2 (08:17→20:43)
[2020-07-26] MEDS: CALCIUM 500 + VIT D 5 MCG (200 IU) TABLET PO SCH ×2 (08:17→20:42)
[2020-07-26] MEDS: COLACE PO SCH ×2 (08:17→20:42)
[2020-07-26] MEDS: NORCO 5-325 PO PRN ×2 (08:18→23:10)
[2020-07-26] MEDS: LEXAPRO PO SCH (08:19)
[2020-07-26] MEDS: FERROUS SULFATE PO SCH (08:19)
[2020-07-26] MEDS: TRIGLIDE PO SCH (08:19)
[2020-07-26] MEDS ORDERED: ZESTRIL PO ONE (08:52)
[2020-07-26] MEDS ORDERED: ZESTRIL PO SCH (09:00)
[2020-07-26] MEDS ORDERED: ATROVENT HFA INHALER (SINGLE PATIENT USE) IH SCH (09:00)
[2020-07-26] MEDS ORDERED: LOVENOX SUBCUT SCH (09:00)
[2020-07-26] MEDS ORDERED: COUMADIN PO SCH (09:00)
[2020-07-26] MEDS: DUONEB NEB SCH ×3 (09:20→20:27)
[2020-07-26] MEDS: NORVASC PO SCH ×2 (10:20→20:44)
[2020-07-26] MEDS: K-DUR PO SCH ×2 (10:21→16:43)
[2020-07-26] MEDS: SOLU-MEDROL 40 MG IVP SCH ×2 (13:07→22:28)
--- NOTE | 2020-07-26 16:34 | RS.OTINEVL ---
Subjective - Patient information Date of Evaluation: 07/26/20 Date of Arrival on Unit: 07/26/20 Admitted From:: Emergency Dept Diagnosis: UTI, COPD, Respiratory failure PRECAUTIONS: Weakness, Usual Living Arrangement: With Others Living Arrangement Comments: Lives with daughter Home Environment: House Medical History: CVA/TIA (2006), COPD, Arthritis Medical History Comments:: Left above knee amputation. Surgical History Comments:: L oophorectomy, stents in both legs. Subjective Information/ Patient Comments:: "I am so weak." "My stomach hurts from coughing so much. It is this color." - Level of function Abilities prior to this admission: Pt reports she walked with her prosthetic leg and her daughter helped her with a WC behind her. Current Level of Function: Partially Dependent Current Equipment Used at Home: wheelchair, shower chair, oxygen, nebulizer Pain Assessment - Pain Pain Score: 0 Interventions - Objective Patient Orientation: Person, Place, Time, Situation Current Interventions: IV's, Oxygen Interventions - ROM Right Upper Extremity AROM: Slight limitation Left Upper Extremity AROM: Slight limitation - Strength Right Upper Extremity Strength: Mild Weakness Left Upper Extremity Strength: Mild Weakness Balance - Sitting Balance Static Sitting Balance: Poor Dynamic Sitting Balance: Poor ADL Skills - Self Feeding Self Feeding: Independent - Grooming Grooming: Min Assist - Bathing Bathing UE: Min Assist Bathing LE: Max Assist - Dressing Dressing UE: Min Assist Dressing LE: Max Assist - Toilet Management Toileting Management: Max Assist Functional Mobility - Bed Mobility Rolling R/L: Min Assist - Transfers Sit to Stand: Not Tested Stand to Sit: Not Tested Stand Pivot Transfers: Not Tested - Ambulation Weight Bearing Status: WBAT Assistive Device Used: Rolling Walker Assistance needed with Ambulation: Max Assist, 2 person assist SIMRAN INDEX SCORE: . Additional Treatment Performed - Time with patient Length of Evaluation: 20 Total treatment time: 20 Activities Do you enjoy playing games?: Yes Would you be interested in leaving your room for activities?: Yes Would you enjoy group activities?: Yes Do you have difficulty with your vision?: Yes Patient Interests:: Watching Television, Puzzles/Games, Visiting/Socializing Patient Education Patient Education: Education of diagnosis, Home Exercise Program, Home Safety, Education of Plan of Care Teaching Recipient: Patient Teaching Methods: Discussion Assessment Problem List:: Decreased level of function, Requires training/education, Decreased safety/Risk of falls, Weakness Rehab Potential: Fair Evaluation Complexity: HISTORY: Medium, EXAM OF BODY SYSTEMS: Medium, CLINICAL DECISION MAKING: Medium Patient's Goal(s): To get well where she can go home and live with her daughter. Short Term Goals - Goals GOAL 1: Pt to be Min A with sink level ADLS. Goal to be met by: 07/31/20 GOAL 2: Pt to increase BUE strength to 4/5. Goal to be met by: 07/31/20 GOAL 3: Pt to demonstrate understanding of donning her prosthetic leg. Goal to be met by: 07/31/20 GOAL 4: Pt to be Min A with RLE dressing. Oil Expeller Goals GOAL 1: Pt to be CGA with sink level ADLS. Goal to be met by: 08/02/20 GOAL 2: Pt to increase BUE strength to 4/5. Goal to be met by: 08/02/20 GOAL 3: Pt to be (I) with lower extremity dressing. Goal to be met by: 08/02/20 Plan Plan of Care: Therapeutic EX, Therapeutic Activity, Self-Care/Home Management Frequency of Treatment: 1-2 X day, as tolerated Duration of Treatment: 1 Week Anticipated Discharge Destination: Home Treatment Diagnosis (ICD 10 Codes): M62.81 general weakness, Z74.1 Need for assistance with personal care. Has the Physician been added for Co-signature?: Yes
[2020-07-26] MEDS: LIPITOR PO SCH (20:43)
[2020-07-26] MEDS: ZESTRIL PO SCH (20:44)
[2020-07-26] MEDS: XANAX PO PRN (23:10)
[2020-07-27] MEDS: DUONEB NEB SCH ×3 (04:40→19:00)
[2020-07-27] MEDS: SOLU-MEDROL 40 MG IVP SCH ×3 (05:30→21:21)
[2020-07-27 05:56] LABS: BASOPHILS % (AUTO) 0.3 % (0.0-3.0); HEMATOCRIT 40.3 % (37.0-47.0); HEMOGLOBIN 12.9 g/dl (12.0-16.0); IMMATURE GRANULOCYTE % (AUTO) 0.3 % (0.0-5.0); LYMPHOCYTES # (AUTO) 0.7 K/uL (0.60-3.4); MEAN CORPUSCULAR HEMOGLOBIN 30.1 pg (27.0-31.0); MEAN CORPUSCULAR VOLUME 94.2 fl (81.0-99.0); MONOCYTES # (AUTO) 0.1 K/uL (0.4-2.0); MONOCYTES % (AUTO) 1.3 (0-10); NEUTROPHILS # (AUTO) 5.4 K/ul (2.0-6.9); NEUTROPHILS % (AUTO) 87.1 % (42.2-75.2); PLATELET COUNT 138 10^3/uL (140-440); RDW COEFFICIENT OF VARIATION 14.3 % (11.6-14.8); RED BLOOD COUNT 4.28 10^6/ul (4.20-5.40); WHITE BLOOD COUNT 6.19 K/ul (4.6-10.2)
[2020-07-27] MEDS: SYNTHROID PO SCH (06:12)
[2020-07-27 06:14] LABS: ALANINE AMINOTRANSFERASE 34.8 U/L (0-35); ALBUMIN 3.65 g/dL (3.5-5.0); ALKALINE PHOSPHATASE 57.9 U/L (53-141); ASPARTATE AMINO TRANSFERASE 41.5 U/L (14-36); BILIRUBIN,TOTAL 0.61 mg/dL (0.2-1.3); BLOOD UREA NITROGEN 13.2 mg/dL (7-17); CALCIUM 9.38 mg/dL (8.4-10.2); CARBON DIOXIDE 22.9 mmol/L (22-30.0); CHLORIDE 110.2 mmol/L (98-107); CREATININE 0.64 mg/dL (0.60-1.30); GLUCOSE 151.4 mg/dL (74-106); POTASSIUM 4.14 mmol/L (3.5-5.1); SODIUM 140.7 mmol/L (134.5-145); TOTAL PROTEIN 6.25 g/dL (6.3-8.2)
[2020-07-27 06:34] LABS: PROTHROMBIN TIME 15.2 SEC (9.3-11.0)
[2020-07-27 08:53] LABS: ABG O2 HGB 92.3 % (95-100); ABG PH 7.41 (7.35-7.45); BEecf -1.8 (-2.0-3.0); COHb 2.2 (0.5-1.5); HCO3 22.8 (21-28); MetHb 1.2 (0-1.5); TCO2 23.9 (19-24); sO2 92.9 % (94-98)
--- NOTE | 2020-07-27 09:36 | PCM.PROG ---
Attending Provider: ATTENDING PROVIDER: Dr. BIJAN ROWE This patient is seen with Lois Sarah, Nurse Practitioner. DATE OF SERVICE: 07/27/20 SUBJECTIVE: This 85 year old /WHITE F was hospitalized 07/26/20. The patient is complaining of lower abdominal pain, still with dysuria. She is coughing. No fever. REVIEW OF SYSTEMS: CONSTITUTIONAL: Weakness. No night sweats. No fatigue, malaise, lethargy. No fever or chills. HEENT: Eyes: No visual changes. No eye pain. No eye discharge. ENT: No runny nose. No epistaxis. No sinus pain. No odynophagia. No congestion. RESPIRATORY: Cough. No hemoptysis. Shortness of breath. CARDIOVASCULAR: No angina symptoms. No CHF symptoms. No atypical chest pain for CAD. No palpitations. No orthopnea.. GASTROINTESTINAL: Lower abdominal pain. No nausea or vomiting. No diarrhea or constipation. No hematemesis. No hematochezia. GENITOURINARY: Positive for dysuria. No urgency. No frequency. No hematuria. No obstructive symptoms. No discharge. No pain. No significant abnormal bleeding. MUSCULOSKELETAL: No musculoskeletal pain; no joint swelling. NEUROLOGICAL: Awake, alert, oriented to time, place and person. No headache. No neck pain. No syncope. No seizures. No dizziness. PSYCHIATRIC: Not anxious. No depression. No suicidal thoughts. No homicidal thoughts. SKIN: No rash. No lesions. No wounds. ENDOCRINE: No unexplained weight loss. No weight gain. HEMATOLOGIC/LYMPHATIC: No anemia. No purpura. No petechiae. No prolonged or excessive bleeding. No palpable lymph nodes. PHYSICAL EXAMINATION: GENERAL: The patient is awake, alert and oriented, lying/sitting in bed in no distress. VITAL SIGNS: Temperature 97 F, Pulse 69, Respiratory Rate 16, BP 144/71, Pulse Ox 91% HEENT: Head normocephalic, atraumatic. Eyes: Extraocular muscles are intact. Pupils are equal, round and reactive to light and accommodation. Ears: No lesions. Nose appeared normal. Throat: No exudate or erythema. NECK: Supple. No JVD, no carotid bruit. No lymphadenopathy or thyromegaly. LUNGS: Diminished breath sounds. Clear to auscultation. Percussion note normal. Chest symmetrical. HEART: S1, S2, no S3. No murmurs. No cyanosis or clubbing. No ascites. Pulses: Dorsalis pedis and posterior tibial pulses +1 to +2 both sides. ABDOMEN: Suprapubic tenderness. Soft. Bowel sounds active. No CVA tenderness. No mass felt. EXTREMITIES: No edema. Full range of motion of all extremities, equal. NEUROLOGIC: No focal deficit. Cranial nerves II through XII are grossly intact. No headache. No double vision. SKIN: Not dry. Intact. Turgor-normal. LYMPHATIC: No palpable lymph nodes/no lymphedema. MUSCULOSKELETAL: Normal joints with no swelling. Muscle tone is normal. LAB REVIEW: 07/27/20 04:10 07/27/20 04:10 07/27/20 04:10: PT 15.2 H D, INR 1.42 07/27/20 04:10: Sodium 140.7, Potassium 4.14, Chloride 110.2 H, Carbon Dioxide 22.9, Anion Gap 11.74, BUN 13.2, Creatinine 0.64, Estimated GFR (MDRD) 88.00, BUN/Creatinine Ratio 20.62, Glucose 151.4 H, Calcium 9.38, Total Bilirubin 0.61, AST 41.5 H, ALT 34.8, Alkaline Phosphatase 57.9, Total Protein 6.25 L, Albumin 3.65, Globulin 2.60, Albumin/Globulin Ratio 1.40 07/27/20 04:10: WBC 6.19, RBC 4.28, Hgb 12.9, Hct 40.3, MCV 94.2, MCH 30.1, MCHC 32.0, RDW Coeff of Nataliya 14.3, Plt Count 138 L, Immature Gran % (Auto) 0.3, Neut % (Auto) 87.1 H, Lymph % (Auto) 11.0, [place] % (Auto) 1.3, Eos % (Auto) 0.0, Baso % (Auto) 0.3, Neut # (Auto) 5.4, Lymph # (Auto) 0.7, [place] # (Auto) 0.1 L, Eos # (Auto) 0.0, Baso # (Auto) 0.0, Immature Gran # (Auto) 0.0 ASSESSMENT: Please see below. 1. UTI, culture pending. 2. Acute COPD exacerbation. 3. Chronic respiratory failure. 4. History of DVT. 5. Severe PAD. 6. Hypertension. PLAN: 1. CT scan of abdomen and pelvis with and without contrast. 2. Stop fluids after this bag. 3. Continue all home medications. 4. Resume Coumadin today. 5. Repeat blood gases on 2L. 6. Pulmicort nebulizer 1 mg b.i.d. 7. Duoneb t.i.d. CHUY. Plan and coordination of the patient's care discussed in the presence of Cdl Team Truck Driver and nurse. CONDITION: Stable SCRIBED BY: Lesley GARCIA scribed while in presence of service performed by Dr. Rowe/Lois Sarah APRN on 07/27/20 ([id number])
[2020-07-27] MEDS: SODIUM CHLORIDE 1,000 ML IV SCH (10:34)
--- NOTE | 2020-07-27 11:07 | RS.PTINEVL ---
Subjective - Patient information Date of Evaluation: 07/27/20 Date of Arrival on Unit: 07/26/20 Admitted From:: Home Diagnosis: COPD exacerbation, acute UTI, acute hypoxemic resp failure Usual Living Arrangement: With Others Living Arrangement Comments: lives with daughter and has ramp Home Environment: House, Ramp Medical History: Hypertension, CVA/TIA, COPD, Arthritis Medical History Comments:: brain bleed, CAD, DJD, depression, hypothyroid, neuropathy,PAD, CKD, tibial fx LATEX ALLERGY?: No Surgical History Comments:: Ronnie CHILD Medications: see chart Subjective Information/ Patient Comments:: pt states that she has not worn her prosthesis in 2 weeks. States "I don't put it on everyday." "I sleep until 2pm everyday." pt states she had home health but they dc last week. - Level of function Abilities prior to this admission: pt required assist with all transfers, ADL's Current Level of Function: Partially Dependent Current Equipment Used at Home: wheelchair, shower chair, oxygen, nebulizer, walker, prosthesis Interventions - Objective Patient Orientation: Person, Place Current Interventions: IV's, Oxygen, Telemetry Range of Motion - ROM Right Upper Extremity AROM: WFL's Left Upper Extremity AROM: WFL's Right Lower Extremity AROM: WFL's Left Lower Extremity AROM: WFL's Muscle Strength - Muscle Strength Right Upper Extremity Strength: Mild Weakness (grossly 4/5) Left Upper Extremity Strength: Mild Weakness (grossly 4/5) Right Lower Extremity Strength: Mild Weakness (hip flex 4/5, knee flex/ext 4/5, ankle DF/PF 4/5) Left Lower Extremity Strength: Mild Weakness (hip flex 4-/5) Sensation - Sensation Right Upper Extremity Sensation: Intact/Normal Left Upper Extremity Sensation: Intact/Normal Right Lower Extremity Sensation: Intact/Normal Left Lower Extremity Sensation: Intact/Normal Palpation Palpation Findings: None/Normal Balance - Sitting Balance and Reactions Static Sitting Balance: Fair Dynamic Sitting Balance: Fair - Standing Balance and Reactions Static Standing Balance: Poor Dynamic Standing Balance: Poor Standing Equilibrium Reactions: Delayed Left, Delayed Right Standing Protective Reactions: Delayed Left, Delayed Right Functional Mobility - Bed Mobility Rolling R/L: Min Assist, 1 person assist Scooting: Max Assist, 2 person assist Supine to Sit: Min Assist, 1 person assist Sit to Supine: Min Assist, 1 person assist - Transfers Sit to Stand: Mod Assist, 2 person assist Stand to Sit: Mod Assist, 2 person assist Stand Pivot Transfers: Mod Assist, 2 person assist - Safety Awareness Safety Awareness: Fair SIMRAN INDEX SCORE: n/a Treatment time - Time with patient Length of Evaluation: 19 Total treatment time: 26 Patient Education - Education Patient Education: Activity Modification, Education of Plan of Care Assessment - Assessment Problem List:: Decreased level of function, Requires training/education, Dec reased safety/Risk of falls, Weakness, Pain limits previous level of function, Cognitive status limits abilities Rehab Potential: Good Further Therapy Indicated?: Yes Candidate for Swing Bed for Therapy Services?: Feel pt may not be a candidate for swing bed for therapy, pt has a history of noncompliance at home. Evaluation Complexity: HISTORY: Medium, EXAM OF BODY SYSTEMS: Medium, CLINICAL PRESENTATION: Medium, CLINICAL DECISION MAKING: Medium Patient's Goal(s): go back home. Short Term Goals GOAL #1: pt demonstrate rolling , bridging, scooting independently Goal to be met by: 07/30/20 GOAL #2: Transfer sup to/from sit CGA Goal to be met by: 07/30/20 GOAL #3: sit to/from stand min x 2 Goal to be met by: 07/30/20 GOAL #4: Transfer bed to/from chair min x 2 Goal to be met by: 07/30/20 GOAL #5: Improve dyn stand balance fair - Goal to be met by: 07/30/20 GOAL #6: Improve strength BLE 4-/5 to 4/5 Goal to be met by: 07/30/20 Warp Preparer Goals GOAL #1: pt transfers sup to/from sit independent, sit to/from stand min x 1 Goal to be met by: 08/01/20 GOAL #2: pt transfer bed to/from chair with prosthesis and rwx min x 1 Goal to be met by: 08/01/20 GOAL #3: pt amb 10ft with prosthesis and rwx and min x 1 Goal to be met by: 08/01/20 Plan Plan of Care: Therapeutic EX, Therapeutic Activity Other:: gait training Frequency of Treatment: 1-2 X day, as tolerated Duration of Treatment: 5 days Anticipated Discharge Destination: Home Treatment Diagnosis (ICD 10 Codes): impaired balance R 26.81. muscle weakness M62.81. gait difficulty R 26.2 Has the Physician been added for Co-signature?: Yes
[2020-07-27] MEDS: TRIGLIDE PO SCH (11:47)
[2020-07-27] MEDS: ROCEPHIN 1 GM/50 ML D5W 1 GM/50 ML BAG IV SCH (11:47)
[2020-07-27] MEDS: LEXAPRO PO SCH (11:48)
[2020-07-27] MEDS: COLACE PO SCH ×2 (11:48→20:41)
[2020-07-27] MEDS: DOXYCYCLINE HYCLATE PO SCH ×2 (11:48→20:41)
[2020-07-27] MEDS: FERROUS SULFATE PO SCH (11:48)
[2020-07-27] MEDS: K-DUR PO SCH ×2 (11:48→16:26)
[2020-07-27] MEDS: NORVASC PO SCH ×2 (11:48→20:42)
[2020-07-27] MEDS: CALCIUM 500 + VIT D 5 MCG (200 IU) TABLET PO SCH ×2 (11:49→20:41)
[2020-07-27] MEDS: ZESTRIL PO SCH ×2 (11:49→20:42)
--- NOTE | 2020-07-27 13:09 | CT ---
EXAM: CT abdomen with and without contrast. CT pelvis with and without contrast. HISTORY: Abdominal pain. COMPARISON: Ultrasound 08/15/2016. Lumbar spine CT 11/13/2018. TECHNIQUE: Multiple axial images of the abdomen and pelvis were obtained prior to and following intr avenous administration of 75 mL Omnipaque 350, low osmolar. Images reformatted in the sagittal and c oronal plane. FINDINGS: Moderate emphysema in the lung bases. Calcified granulomatous changes noted. Dependent a telectasis in the left lower lobe. Left hip arthroplasty changes noted. Degenerative changes seen in the spine. Minimal superior endpl ate compression deformities of L2 and L3 are stable. The. Liver, gallbladder, pancreas, spleen, and adrenal glands are unremarkable. Small left renal cyst noted. There is no hydronephrosis. Right nephrolithiasis. Renal vascular debbie cifications noted. The bowel is normal in course and caliber without obstruction or inflammation. Appendix normal. Sma ll fat-containing umbilical hernia noted. Uterus demonstrates normal contour. Bladder normal. There is no free fluid, free air or lymphadenop athy detected. Inferior vena cava filter present. Struts and tip project beyond the lumen. There is no adjacent ed santos. 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 Fem-fem bypass graft present. IMPRESSION: No acute abnormality within the abdomen or pelvis. All CT scans are performed using dose optimization techniques as appropriate to the performed exam an d include at least one of the following: Automated exposure control, adjustment of the mA and/or kV according t o size, and the use of iterative reconstruction technique.
[2020-07-27] MEDS: NORCO 5-325 PO PRN ×2 (13:11→19:45)
[2020-07-27] MEDS: XANAX PO PRN ×2 (13:11→21:38)
[2020-07-27] MEDS: COUMADIN PO SCH (16:26)
[2020-07-27] MEDS: PULMICORT 1 MG/2 ML NEB SCH (19:00)
[2020-07-27] MEDS: LIPITOR PO SCH (20:42)
[2020-07-28] MEDS: DUONEB NEB SCH ×3 (04:55→20:50)
[2020-07-28] MEDS: PULMICORT 1 MG/2 ML NEB SCH ×2 (04:55→20:50)
[2020-07-28] MEDS: SYNTHROID PO SCH (05:22)
[2020-07-28] MEDS: SOLU-MEDROL 40 MG IVP SCH ×3 (05:23→22:01)
[2020-07-28 05:36] LABS: BASOPHILS % (AUTO) 0.1 % (0.0-3.0); HEMATOCRIT 39.3 % (37.0-47.0); HEMOGLOBIN 12.8 g/dl (12.0-16.0); IMMATURE GRANULOCYTE # (AUTO) 0.1 (0.0-1.0); IMMATURE GRANULOCYTE % (AUTO) 1.1 % (0.0-5.0); LYMPHOCYTES # (AUTO) 0.6 K/uL (0.60-3.4); LYMPHOCYTES % (AUTO) 7.7 (10.0-50.0); MEAN CORPUSCULAR HEMOGLOBIN 30.5 pg (27.0-31.0); MEAN CORPUSCULAR HGB CONC 32.6 (31.8-35.4); MEAN CORPUSCULAR VOLUME 93.6 fl (81.0-99.0); MONOCYTES # (AUTO) 0.3 K/uL (0.4-2.0); MONOCYTES % (AUTO) 3.7 (0-10); NEUTROPHILS # (AUTO) 6.6 K/ul (2.0-6.9); NEUTROPHILS % (AUTO) 87.4 % (42.2-75.2); PLATELET COUNT 155 10^3/uL (140-440); RDW COEFFICIENT OF VARIATION 14.5 % (11.6-14.8); WHITE BLOOD COUNT 7.51 K/ul (4.6-10.2)
[2020-07-28 05:56] LABS: ALANINE AMINOTRANSFERASE 29.7 U/L (0-35); ALBUMIN 3.94 g/dL (3.5-5.0); ASPARTATE AMINO TRANSFERASE 41.3 U/L (14-36); BILIRUBIN,TOTAL 0.37 mg/dL (0.2-1.3); BLOOD UREA NITROGEN 15.3 mg/dL (7-17); CALCIUM 10.42 mg/dL (8.4-10.2); CARBON DIOXIDE 25.4 mmol/L (22-30.0); CHLORIDE 108.3 mmol/L (98-107); CREATININE 0.73 mg/dL (0.60-1.30); GLUCOSE 133.8 mg/dL (74-106); POTASSIUM 4.81 mmol/L (3.5-5.1); SODIUM 139.3 mmol/L (134.5-145); TOTAL PROTEIN 6.57 g/dL (6.3-8.2)
[2020-07-28 07:54] LABS: PROTHROMBIN TIME 13.3 SEC (9.3-11.0)
[2020-07-28] MEDS: NORVASC PO SCH ×2 (08:29→20:16)
[2020-07-28] MEDS: ZESTRIL PO SCH ×2 (08:30→20:15)
[2020-07-28] MEDS: CALCIUM 500 + VIT D 5 MCG (200 IU) TABLET PO SCH ×2 (08:30→20:16)
[2020-07-28] MEDS: TRIGLIDE PO SCH (08:30)
[2020-07-28] MEDS: NORCO 5-325 PO PRN ×2 (08:30→20:15)
[2020-07-28] MEDS: COLACE PO SCH ×2 (08:30→20:16)
[2020-07-28] MEDS: LEXAPRO PO SCH (08:30)
[2020-07-28] MEDS: FERROUS SULFATE PO SCH (08:30)
[2020-07-28] MEDS: XANAX PO PRN ×2 (08:31→17:26)
[2020-07-28] MEDS: ROCEPHIN 1 GM/50 ML D5W 1 GM/50 ML BAG IV SCH (08:32)
--- NOTE | 2020-07-28 10:30 | PCM.PROG ---
Attending Provider: ATTENDING PROVIDER: Dr. BIJAN ROWE This patient is seen with Lois Sarah, Nurse Practitioner. DATE OF SERVICE: 07/28/20 SUBJECTIVE: This 85 year old /WHITE F was hospitalized 07/26/20. The patient is resting comfortably. Still complaining of pleuritic type of pain with deep breathing and cough. REVIEW OF SYSTEMS: CONSTITUTIONAL: No night sweats. No fatigue, malaise, lethargy. No fever or chills. HEENT: Eyes: No visual changes. No eye pain. No eye discharge. ENT: No runny nose. No epistaxis. No sinus pain. No odynophagia. No congestion. RESPIRATORY: Cough, no congestion. No hemoptysis. Shortness of breath. CARDIOVASCULAR: No angina symptoms. No CHF symptoms. No atypical chest pain for CAD. No palpitations. No orthopnea.. GASTROINTESTINAL: No abdominal pain. No nausea or vomiting. No diarrhea or constipation. No hematemesis. No hematochezia. Decrease in appetite. GENITOURINARY: No urgency. No frequency. No dysuria. No hematuria. No obstructive symptoms. No discharge. No pain. No significant abnormal bleeding. MUSCULOSKELETAL: No musculoskeletal pain; no joint swelling. NEUROLOGICAL: Awake, alert, oriented to time, place and person. No headache. No neck pain. No syncope. No seizures. No dizziness. PSYCHIATRIC: Not anxious. No depression. No suicidal thoughts. No homicidal thoughts. SKIN: No rash. No lesions. No wounds. ENDOCRINE: No unexplained weight loss. No weight gain. HEMATOLOGIC/LYMPHATIC: No anemia. No purpura. No petechiae. No prolonged or excessive bleeding. No palpable lymph nodes. PHYSICAL EXAMINATION: GENERAL: The patient is awake, alert and oriented, lying in bed in no distress. VITAL SIGNS: Temperature 97.9 F, Pulse 76, Respiratory Rate 17, BP 163/63, Pulse Ox 95% HEENT: Head normocephalic, atraumatic. Eyes: Extraocular muscles are intact. Pupils are equal, round and reactive to light and accommodation. Ears: No lesions. Nose appeared normal. Throat: No exudate or erythema. NECK: Supple. No JVD, no carotid bruit. No lymphadenopathy or thyromegaly. LUNGS: Diminished breath sounds. Clear to auscultation. Percussion note normal. Chest symmetrical. HEART: S1, S2, no S3. No murmurs. No cyanosis or clubbing. No ascites. Pulses: Dorsalis pedis and posterior tibial pulses +1 to +2 both sides. ABDOMEN: Soft. Non-tender. Bowel sounds active. No CVA tenderness. No mass felt. EXTREMITIES: No edema. Full range of motion of all extremities, equal. NEUROLOGIC: No focal deficit. Cranial nerves II through XII are grossly intact. No headache. No double vision. SKIN: Not dry. Intact. Turgor-normal. LYMPHATIC: No palpable lymph nodes/no lymphedema. MUSCULOSKELETAL: Normal joints with no swelling. Muscle tone is normal. LAB REVIEW: 07/28/20 04:52 07/28/20 04:52 07/28/20 04:52: Sodium 139.3, Potassium 4.81, Chloride 108.3 H, Carbon Dioxide 25.4, Anion Gap 10.41, BUN 15.3, Creatinine 0.73, Estimated GFR (MDRD) 76.00, BUN/Creatinine Ratio 20.95, Glucose 133.8 H, Calcium 10.42 H, Total Bilirubin 0.37, AST 41.3 H, ALT 29.7, Alkaline Phosphatase 71.0, Total Protein 6.57, Albumin 3.94, Globulin 2.63, Albumin/Globulin Ratio 1.49 07/28/20 04:52: WBC 7.51, RBC 4.20, Hgb 12.8, Hct 39.3, MCV 93.6, MCH 30.5, MCHC 32.6, RDW Coeff of Nataliya 14.5, Plt Count 155, Immature Gran % (Auto) 1.1, Neut % (Auto) 87.4 H, Lymph % (Auto) 7.7 L, Hamlin % (Auto) 3.7, Eos % (Auto) 0.0, Baso % (Auto) 0.1, Neut # (Auto) 6.6, Lymph # (Auto) 0.6, Hamlin # (Auto) 0.3 L, Eos # (Auto) 0.0, Baso # (Auto) 0.0, Immature Gran # (Auto) 0.1 07/27/20 08:40: Puncture Site Lr, Base Excess -1.8, O2 Saturation 92.9 L, ABG pH 7.41, ABG pCO2 36.0, ABG pO2 66.0 L, ABG HCO3 22.8, ABG Total CO2 23.9, Micheal Test Y, Hemoglobin 1.2, Oxyhemoglobin 92.3 L, Carboxyhemoglobin 2.2 H, Total Hemoglobin 13.0, O2 Delivery Device Cannula, Oxygen Liter Flow 2.00 ASSESSMENT: Please see below. 1. UTI, positive e-coli 2. Acute COPD exacerbation 3. Chronic respiratory failure 4. Severe PAD 5. History of DVT 6. Intermittent confusion at night. PLAN: 1. Decrease Potassium to Friday, Friday and Friday 2. Discontinue Doxycycline 3. Continue Rocephin 4. PT INR daily Plan and coordination of the patient's care discussed in the presence of Projector Booth Operator and nurse. SCRIBED BY: Henrique ELLINGTONist scribed while in presence of service performed by Dr. Rowe/Lois Sarah APRN on 07/28/20 ([id number])
--- NOTE | 2020-07-28 14:41 | HP ---
DATE OF SERVICE: 07/26/2020 REASON FOR HOSPITALIZATION/HISTORY OF PRESENT ILLNESS: 86 year old white female who presented to the emergency room with increased weakness and confusion. PAST MEDICAL HISTORY: History of DVT History of CVA PAD Chronic kidney disease stage 3 Hypertension Anemia Dyslipidemia Hypothyroidism Chronic stenosis AAA CAD History of CVA Anxiety Depression PAST SURGICAL HISTORY: Left hip replacement Left above knee amputation IVC filter Left carotid endarterectomy REVIEW OF SYSTEMS: CONSTITUTIONAL: No night sweats. No fatigue, malaise, lethargy. No fever or chills. Weakness. Pallor. HEENT: Eyes: No visual changes. No eye pain. No eye discharge. ENT: No runny nose. No epistaxis. No sinus pain. No sore throat. No odynophagia. No ear pain. No congestion. RESPIRATORY: Cough, no congestion. No hemoptysis. Shortness of breath. CARDIOVASCULAR: No angina symptoms. No CHF symptoms. No atypical chest pain for CAD. No palpitations. No PND. No orthopnea. GASTROINTESTINAL: No abdominal pain. No nausea or vomiting. No diarrhea or constipation. No hematemesis. No hematochezia. GENITOURINARY: No urgency. No frequency. No dysuria. No hematuria. No obstructive symptoms. No discharge. No pain. No significant abnormal bleeding. MUSCULOSKELETAL: No musculoskeletal pain. No joint swelling. No arthritis. NEUROLOGICAL: No headache. No neck pain. No syncope. No seizures. No dizziness. PSYCHIATRIC: Not anxious. No depression. No suicidal thoughts. No homicidal thoughts. SKIN: No rash. No lesions. No wounds. ENDOCRINE: No unexplained weight loss. No weight gain. HEMATOLOGIC/LYMPHATIC: No anemia. No purpura. No petechiae. No prolonged or excessive bleeding. No palpable lymph nodes. PERSONAL/FAMILY/SOCIAL HISTORY: She is . She lives at home with daughter. She is former smoker. She might still smoke occasionally. She is oxygen dependent. MEDICATIONS: Ferrous sulfate 325mg PO daily Levothyroxine 75mcg PO 0500 Furosemide 20mg PO MOWESA Lexapro 10mg PO daily Calcium 600+ D3 one capsule PO BID Benadryl 25mg PO BEDTIME PRN Colace 100mg PO BID PRN Bisacodyl 10mg W[place] daily PRN Acetaminophen 325mg PO Q 4 HOURS PRN Multivitamin 1 capsule PO daily Milk of Magnesia 5ml PO daily PRN Fenofibrate 54mg PO daily Cetirizine 10mg PO daily Atorvastatin 40mg Bedtime Hydrocodone-Acetaminophen 3ml inhalation Q 6 hours Alprazolam 0.25mg PO TID PRN Potassium Chloride 20meq PO MOWESA Zestril 10mg PO daily Warfarin 3mg PO daily ALLERGIES: Denosumab Propoxyphene HCL PHYSICAL EXAMINATION: VITAL SIGNS: Temperature 97.7, heart rate 80, respiratory 22, blood pressure 180/78 and pulse ox 94% on 2 liters. HEENT: Head normocephalic, atraumatic. Eyes: Extraocular muscles are intact. Pupils are equal, round and reactive to light and accommodation. Ears: No lesions. Nose appeared normal. Throat: No exudate or erythema. NECK: Supple. No JVD, no carotid bruit. No lymphadenopathy or thyromegaly. LUNGS:Diminished breath sounds bilaterally. Bilateral expiratory wheezing. Percussion note normal. Chest symmetrical. HEART: S1, S2, no S3. No murmur. No cyanosis or clubbing. No ascites. Pulses: Dorsalis pedis and posterior tibial pulses +1 to +2 bilaterally. ABDOMEN: Soft. Nontender. Bowel sounds active. No CVA tenderness. No mass felt. Slight suprapubic tenderness. EXTREMITIES: No edema. Full range of motion of all extremities, equal. NEUROLOGIC: No focal deficit. Cranial nerves II through XII are grossly intact. No headache, no double vision or headache. SKIN: Not dry. Intact. Turgor - normal. LYMPHATIC: No palpable lymph nodes/no lymphedema. MUSCULOSKELETAL: Normal joints with no swelling. Muscle tone is normal. LABS: WBC 8.02, hgb 14.4, hct 44.6, plt count 139, sodium 141, potassium 3.2, BUN 11, creatinine 0.77, glucose 124, ABG on room air O2 saturation 84, pH 7.42, pCO2 39, pO2 48, bicarb 25.3, lactic acid 1.51, INR 2.23, respiratory PCR is negative. Urine shows +4 bacteria, +1 leuks, cloudy, 2+ blood. CT chest shows no acute findings, emphysema. CT of the abdomen and pelvis was not done. ASSESSMENT: 1. Acute COPD exacerbation with shortness of breath 2. Severe COPD, oxygen dependent 3. Urinary tract infection, culture pending 4. Chronic respiratory failure 5. Severe PAD 6. History of DVT on chronic anticoagulation PLAN: 1. We will admit 2. Routine telemetry orders 3. CBC and CMP daily 4. Start Rocephin 1 gram IV daily 5. Normal saline IV at 75cc an hour 6. Doxycycline 100mg PO Q 12 hours 7. Solu-Cortef 100mg IV Q 8 hours 8. Continue home medications 9. Regular diet 10.Urine for cultures 11.CT of the abdomen and pelvis with and without contrast for in the morning 12.Oxygen at 1-2 liters as needed 13.Continue home medications 14.Daily INR We will follow closely. TIME SPENT: More than 70 minutes. MTDD
[2020-07-28] MEDS ORDERED: COUMADIN PO ONE (17:00)
[2020-07-28] MEDS: COUMADIN PO SCH (17:27)
[2020-07-28] MEDS: LIPITOR PO SCH (20:15)
[2020-07-29] MEDS: NORCO 5-325 PO PRN ×2 (02:31→20:24)
[2020-07-29] MEDS: XANAX PO PRN ×2 (02:31→17:40)
[2020-07-29] MEDS: DUONEB NEB SCH ×3 (05:00→19:30)
[2020-07-29] MEDS: PULMICORT 1 MG/2 ML NEB SCH ×2 (05:00→19:30)
[2020-07-29 05:05] LABS: BASOPHILS % (AUTO) 0.2 % (0.0-3.0); HEMATOCRIT 39.5 % (37.0-47.0); HEMOGLOBIN 12.9 g/dl (12.0-16.0); IMMATURE GRANULOCYTE # (AUTO) 0.1 (0.0-1.0); IMMATURE GRANULOCYTE % (AUTO) 2.3 % (0.0-5.0); LYMPHOCYTES # (AUTO) 0.8 K/uL (0.60-3.4); LYMPHOCYTES % (AUTO) 12.3 (10.0-50.0); MEAN CORPUSCULAR HEMOGLOBIN 30.4 pg (27.0-31.0); MEAN CORPUSCULAR HGB CONC 32.7 (31.8-35.4); MEAN CORPUSCULAR VOLUME 93.2 fl (81.0-99.0); MONOCYTES # (AUTO) 0.3 K/uL (0.4-2.0); MONOCYTES % (AUTO) 4.4 (0-10); NEUTROPHILS % (AUTO) 80.8 % (42.2-75.2); PLATELET COUNT 166 10^3/uL (140-440); RDW COEFFICIENT OF VARIATION 14.3 % (11.6-14.8); RED BLOOD COUNT 4.24 10^6/ul (4.20-5.40); WHITE BLOOD COUNT 6.16 K/ul (4.6-10.2)
[2020-07-29 05:18] LABS: ALANINE AMINOTRANSFERASE 26.9 U/L (0-35); ALBUMIN 3.96 g/dL (3.5-5.0); ALKALINE PHOSPHATASE 59.3 U/L (53-141); ASPARTATE AMINO TRANSFERASE 24.8 U/L (14-36); BILIRUBIN,TOTAL 0.41 mg/dL (0.2-1.3); BLOOD UREA NITROGEN 20.2 mg/dL (7-17); CALCIUM 10.88 mg/dL (8.4-10.2); CARBON DIOXIDE 29.1 mmol/L (22-30.0); CREATININE 0.75 mg/dL (0.60-1.30); GLUCOSE 133.7 mg/dL (74-106); POTASSIUM 4.47 mmol/L (3.5-5.1); PROTHROMBIN TIME 20.2 SEC (9.3-11.0); SODIUM 136.8 mmol/L (134.5-145); TOTAL PROTEIN 6.44 g/dL (6.3-8.2)
[2020-07-29] MEDS: LASIX TAB PO SCH (05:51)
[2020-07-29] MEDS: SOLU-MEDROL 40 MG IVP SCH ×3 (05:54→20:19)
[2020-07-29] MEDS: SYNTHROID PO SCH (05:55)
[2020-07-29] MEDS: ROCEPHIN 1 GM/50 ML D5W 1 GM/50 ML BAG IV SCH (09:41)
[2020-07-29] MEDS: NORVASC PO SCH ×2 (09:47→20:24)
[2020-07-29] MEDS: TRIGLIDE PO SCH (09:47)
[2020-07-29] MEDS: CALCIUM 500 + VIT D 5 MCG (200 IU) TABLET PO SCH ×2 (09:47→20:23)
[2020-07-29] MEDS: K-DUR PO SCH (09:51)
[2020-07-29] MEDS: COLACE PO SCH ×2 (09:51→20:24)
[2020-07-29] MEDS: LEXAPRO PO SCH (09:52)
[2020-07-29] MEDS: FERROUS SULFATE PO SCH (09:52)
[2020-07-29] MEDS: ZESTRIL PO SCH ×2 (09:52→20:24)
[2020-07-29] MEDS ORDERED: FLOMAX PO SCH (12:00)
[2020-07-29] MEDS: COUMADIN PO SCH (17:42)
[2020-07-29] MEDS: LIPITOR PO SCH (20:24)
[2020-07-30] MEDS: SOLU-MEDROL 40 MG IVP SCH ×3 (04:29→20:33)
[2020-07-30] MEDS: NORCO 5-325 PO PRN ×2 (04:30→20:33)
[2020-07-30] MEDS: DUONEB NEB SCH ×3 (04:50→19:50)
[2020-07-30] MEDS: PULMICORT 1 MG/2 ML NEB SCH ×2 (04:50→19:50)
[2020-07-30 05:14] LABS: HEMATOCRIT 42.5 % (37.0-47.0); MEAN CORPUSCULAR HEMOGLOBIN 30.4 pg (27.0-31.0); MEAN CORPUSCULAR HGB CONC 32.9 (31.8-35.4); MEAN CORPUSCULAR VOLUME 92.4 fl (81.0-99.0); PLATELET COUNT 193 10^3/uL (140-440); RDW COEFFICIENT OF VARIATION 14.4 % (11.6-14.8); WHITE BLOOD COUNT 7.03 K/ul (4.6-10.2)
[2020-07-30 05:24] LABS: ALBUMIN 4.03 g/dL (3.5-5.0); ALKALINE PHOSPHATASE 69.4 U/L (53-141); ASPARTATE AMINO TRANSFERASE 18.7 U/L (14-36); BILIRUBIN,TOTAL 0.43 mg/dL (0.2-1.3); BLOOD UREA NITROGEN 32.2 mg/dL (7-17); CARBON DIOXIDE 29.3 mmol/L (22-30.0); CHLORIDE 99.8 mmol/L (98-107); CREATININE 0.85 mg/dL (0.60-1.30); GLUCOSE 114.3 mg/dL (74-106); POTASSIUM 4.16 mmol/L (3.5-5.1); SODIUM 137.2 mmol/L (134.5-145); TOTAL PROTEIN 6.58 g/dL (6.3-8.2)
[2020-07-30 05:26] LABS: ANISOCYTOSIS NOT PRESENT (NOT PRESENT)
[2020-07-30] MEDS: SYNTHROID PO SCH (05:58)
[2020-07-30] MEDS: ROCEPHIN 1 GM/50 ML D5W 1 GM/50 ML BAG IV SCH (08:16)
[2020-07-30] MEDS: TRIGLIDE PO SCH (08:17)
[2020-07-30] MEDS: FERROUS SULFATE PO SCH (08:17)
[2020-07-30] MEDS: CALCIUM 500 + VIT D 5 MCG (200 IU) TABLET PO SCH ×2 (08:17→20:29)
[2020-07-30] MEDS: LEXAPRO PO SCH (08:17)
[2020-07-30] MEDS: COLACE PO SCH ×2 (08:17→20:30)
[2020-07-30] MEDS: NORVASC PO SCH ×2 (08:17→20:30)
[2020-07-30] MEDS: ZESTRIL PO SCH ×2 (08:17→20:32)
[2020-07-30] MEDS: XANAX PO PRN (15:09)
[2020-07-30] MEDS: COUMADIN PO SCH (17:18)
[2020-07-30] MEDS: LIPITOR PO SCH (20:32)
[2020-07-31] MEDS: PULMICORT 1 MG/2 ML NEB SCH ×2 (04:50→19:35)
[2020-07-31] MEDS: DUONEB NEB SCH ×3 (04:50→19:35)
[2020-07-31 05:08] LABS: HEMATOCRIT 44.7 % (37.0-47.0); HEMOGLOBIN 14.4 g/dl (12.0-16.0); MEAN CORPUSCULAR HGB CONC 32.2 (31.8-35.4); MEAN CORPUSCULAR VOLUME 93.1 fl (81.0-99.0); PLATELET COUNT 200 10^3/uL (140-440); RDW COEFFICIENT OF VARIATION 14.3 % (11.6-14.8); WHITE BLOOD COUNT 8.65 K/ul (4.6-10.2)
[2020-07-31 05:18] LABS: ANISOCYTOSIS NOT PRESENT (NOT PRESENT)
[2020-07-31 05:25] LABS: ALANINE AMINOTRANSFERASE 19.9 U/L (0-35); ALBUMIN 4.05 g/dL (3.5-5.0); ALKALINE PHOSPHATASE 49.9 U/L (53-141); ASPARTATE AMINO TRANSFERASE 23.7 U/L (14-36); BILIRUBIN,TOTAL 0.57 mg/dL (0.2-1.3); CALCIUM 10.57 mg/dL (8.4-10.2); CARBON DIOXIDE 31.2 mmol/L (22-30.0); CHLORIDE 98.1 mmol/L (98-107); CREATININE 0.74 mg/dL (0.60-1.30); GLUCOSE 122.1 mg/dL (74-106); POTASSIUM 3.98 mmol/L (3.5-5.1); SODIUM 137.3 mmol/L (134.5-145); TOTAL PROTEIN 6.75 g/dL (6.3-8.2)
[2020-07-31] MEDS: SYNTHROID PO SCH (05:33)
[2020-07-31] MEDS: SOLU-MEDROL 40 MG IVP SCH (05:33)
[2020-07-31] MEDS: LASIX TAB PO SCH (05:33)
[2020-07-31 07:32] LABS: PROTHROMBIN TIME 34.2 SEC (9.3-11.0)
--- NOTE | 2020-07-31 09:10 | PCM.PROG ---
Attending Provider: ATTENDING PROVIDER: Dr. BIJAN ROWE This patient is seen with Lois Sarah, Nurse Practitioner. DATE OF SERVICE: 07/31/20 SUBJECTIVE: This 85 year old /WHITE F was hospitalized 07/26/20. The patient is resting comfortably. Still with thick productive cough. She has been gettting up in the chair. No fever. REVIEW OF SYSTEMS: CONSTITUTIONAL: No night sweats. No fatigue, malaise, lethargy. No fever or chills. Weakness. HEENT: Eyes: No visual changes. No eye pain. No eye discharge. ENT: No runny nose. No epistaxis. No sinus pain. No odynophagia. No congestion. RESPIRATORY: Cough, no congestion. No hemoptysis. No shortness of breath. CARDIOVASCULAR: No angina symptoms. No CHF symptoms. No atypical chest pain for CAD. No palpitations. No orthopnea.. GASTROINTESTINAL: No abdominal pain. No nausea or vomiting. No diarrhea or constipation. No hematemesis. No hematochezia. GENITOURINARY: No urgency. No frequency. No dysuria. No hematuria. No obstructive symptoms. No discharge. No pain. No significant abnormal bleeding. MUSCULOSKELETAL: No musculoskeletal pain; no joint swelling. NEUROLOGICAL: Awake, alert, oriented to time, place and person. No headache. No neck pain. No syncope. No seizures. No dizziness. PSYCHIATRIC: Not anxious. No depression. No suicidal thoughts. No homicidal thoughts. SKIN: No rash. No lesions. No wounds. ENDOCRINE: No unexplained weight loss. No weight gain. HEMATOLOGIC/LYMPHATIC: No anemia. No purpura. No petechiae. No prolonged or excessive bleeding. No palpable lymph nodes. PHYSICAL EXAMINATION: GENERAL: The patient is awake, alert and oriented, lying in bed in no distress. VITAL SIGNS: Temperature 97.3 F, Pulse 58, Respiratory Rate 16, BP 140/61, Pulse Ox 97% HEENT: Head normocephalic, atraumatic. Eyes: Extraocular muscles are intact. Pupils are equal, round and reactive to light and accommodation. Ears: No lesions. Nose appeared normal. Throat: No exudate or erythema. NECK: Supple. No JVD, no carotid bruit. No lymphadenopathy or thyromegaly. LUNGS: Diminished breath sounds with inspiratory wheezing. Percussion note normal. Chest symmetrical. HEART: S1, S2, no S3. No murmurs. No cyanosis or clubbing. No ascites. Pulses: Dorsalis pedis and posterior tibial pulses +1 to +2 both sides. ABDOMEN: Soft. Non-tender. Bowel sounds active. No CVA tenderness. No mass felt. EXTREMITIES: No edema. Full range of motion of all extremities, equal. NEUROLOGIC: No focal deficit. Cranial nerves II through XII are grossly intact. No headache. No double vision. SKIN: Not dry. Intact. Turgor-normal. LYMPHATIC: No palpable lymph nodes/no lymphedema. MUSCULOSKELETAL: Normal joints with no swelling. Muscle tone is normal. LAB REVIEW: 07/31/20 04:30 07/31/20 04:30 07/31/20 04:30: PT 34.2 H, INR 3.19 07/31/20 04:30: Sodium 137.3, Potassium 3.98, Chloride 98.1, Carbon Dioxide 31.2 H, Anion Gap 11.98, BUN 34.0 H, Creatinine 0.74, Estimated GFR (MDRD) 74.00, BUN/Creatinine Ratio 45.94, Glucose 122.1 H, Calcium 10.57 H, Total Bilirubin 0.57, AST 23.7, ALT 19.9, Alkaline Phosphatase 49.9 L, Total Protein 6.75, Albumin 4.05, Globulin 2.70, Albumin/Globulin Ratio 1.50 07/31/20 04:30: WBC 8.65, RBC 4.80, Hgb 14.4, Hct 44.7, MCV 93.1, MCH 30.0, MCHC 32.2, RDW Coeff of Nataliya 14.3, Plt Count 200, Neutrophils % (Manual) 84.0 H, Lymphocytes % (Manual) 6.0 L, Monocytes % (Manual) 4.0, Myelocytes % 2.0 H, Reactive Lymphocytes 4.0, Anisocytosis Not present ASSESSMENT: Please see below. 1. Acute COPD exacerbation 2. Chronic respiratory failure 3. UTI PLAN: 1. Discontinue Solu-Medrol 2. Prednisone 10mg BID 3. Continue Rocephin 4. Hold Coumadin 5. 2D echo Plan and coordination of the patient's care discussed in the presence of Raking Machine Operator and nurse. SCRIBED BY: Lesley ELLINGTON scribed while in presence of service performed by Dr. Rowe/Lois Sarah, TUTORING MANAGER on 07/31/20 ([id number])
[2020-07-31] MEDS: COLACE PO SCH ×2 (09:25→21:22)
[2020-07-31] MEDS: XANAX PO PRN ×2 (09:26→21:48)
[2020-07-31] MEDS: TRIGLIDE PO SCH (09:26)
[2020-07-31] MEDS: CALCIUM 500 + VIT D 5 MCG (200 IU) TABLET PO SCH ×2 (09:26→21:22)
[2020-07-31] MEDS: ZESTRIL PO SCH ×2 (09:26→21:22)
[2020-07-31] MEDS: NORCO 5-325 PO PRN ×2 (09:27→21:22)
[2020-07-31] MEDS: NORVASC PO SCH ×2 (09:27→21:21)
[2020-07-31] MEDS: PREDNISONE PO SCH ×2 (09:27→16:00)
[2020-07-31] MEDS: LEXAPRO PO SCH (09:27)
[2020-07-31] MEDS: FERROUS SULFATE PO SCH (09:27)
[2020-07-31] MEDS: ROCEPHIN 1 GM/50 ML D5W 1 GM/50 ML BAG IV SCH (09:28)
[2020-07-31] MEDS: K-DUR PO SCH (09:29)
--- NOTE | 2020-07-31 10:17 | PN ---
DATE OF SERVICE: 07/26/2020 SUBJECTIVE: 85 year old white female admitted through the emergency room with UTI, dehydration and cough with congestion with shortness of breath. The patient has severe chronic lung disease and severe peripheral arterial disease. The patient's U/A is abnormal. REVIEW OF SYSTEMS: CONSTITUTIONAL: No night sweats. No fatigue, malaise, lethargy. No fever or chills. Weakness. HEENT: Eyes: No visual changes. No eye pain. No eye discharge. ENT: No runny nose. No epistaxis. No sinus pain. No sore throat. No odynophagia. No congestion. RESPIRATORY: No cough, no congestion. No hemoptysis. No shortness of breath. CARDIOVASCULAR: No angina symptoms. No CHF symptoms. No atypical chest pain for CAD. No palpitations. No PND. No orthopnea. GASTROINTESTINAL: No abdominal pain. No nausea or vomiting. No diarrhea or constipation. No hematemesis. No hematochezia. Loss of appetites. GENITOURINARY: No urgency. No frequency. No dysuria. No hematuria. No obstructive symptoms. No discharge. No pain. No significant abnormal bleeding. MUSCULOSKELETAL: No musculoskeletal pain; no joint swelling. NEUROLOGICAL: No headache. No neck pain. No syncope. No seizures. No dizziness. PSYCHIATRIC: Not anxious. No depression. No suicidal thoughts. No homicidal thoughts. SKIN: No rash. No lesions. No wounds. ENDOCRINE: No unexplained weight loss. No weight gain. HEMATOLOGIC/LYMPHATIC: No anemia. No purpura. No petechiae. No prolonged or excessive bleeding. No palpable lymph nodes. PHYSICAL EXAMINATION: VITAL SIGNS: Temperature 98, pulse 72, respiratory rate 20, blood pressure 180/80 and pulse ox 95%. HEENT: Head normocephalic, atraumatic. Eyes: Extraocular muscles are intact. Pupils are equal, round and reactive to light and accommodation. Ears: No lesions. Nose appeared normal. Throat: No exudate or erythema. NECK: Supple. No JVD, no carotid bruit. No lymphadenopathy or thyromegaly. LUNGS: Decreased breath sounds but clear to auscultation. Percussion note normal. Chest symmetrical. HEART: S1, S2, no S3. No murmurs. No cyanosis or clubbing. No ascites. Pulses: Dorsalis pedis and posterior tibial pulses +1 to +2 bilaterally. ABDOMEN: Soft. Nontender. Bowel sounds active. No CVA tenderness. No mass felt. EXTREMITIES: No edema. Full range of motion of all extremities, equal. NEUROLOGIC: No focal deficit. Cranial nerves II through XII are grossly intact. No headache. No double vision. SKIN: Not dry. Intact. Turgor - normal. LYMPHATIC: No palpable lymph nodes/no lymphedema. MUSCULOSKELETAL: Normal joints with no swelling. Muscle tone is normal. LABS: Hgb 14.4, hct 44, WBC 8,000 normal differential, creatinine 0.7, BUN 11, potassium 3.2, glucose 124. ABG pO2 48, pCo2 38, pH 7.42 with 84% saturation on room air. ASSESSMENT: 1. Abnormal U/A with urinary tract infection, start antibiotics Rocephin 2. Respiratory, chronic with exacerbation 3. Hypokalemia 4. Severe hypertension PLAN: 1. Continue Rocephin with steroids 2. Potassium supplements and increase supplement dose by one K-Dur a day more than what she taking 3. Increase the Lisinopril to 10mg twice a day 4. Amlodipine 2.5mg twice a day 5. Steroids and NEBS CONDITION: Stable. The patient is DNI. TIME SPENT: More than 30 minutes. Plan and coordination of the patient's care discussed in the presence of nurse. ARASH
[2020-07-31] MEDS: LIPITOR PO SCH (21:22)
[2020-08-01] MEDS: PULMICORT 1 MG/2 ML NEB SCH (04:10)
[2020-08-01] MEDS: DUONEB NEB SCH (04:10)
[2020-08-01] MEDS: SYNTHROID PO SCH (04:39)
[2020-08-01 04:50] LABS: HEMATOCRIT 43.6 % (37.0-47.0); HEMOGLOBIN 14.4 g/dl (12.0-16.0); MEAN CORPUSCULAR HEMOGLOBIN 30.8 pg (27.0-31.0); MEAN CORPUSCULAR VOLUME 93.4 fl (81.0-99.0); PLATELET COUNT 198 10^3/uL (140-440); RDW COEFFICIENT OF VARIATION 14.6 % (11.6-14.8); RED BLOOD COUNT 4.67 10^6/ul (4.20-5.40); WHITE BLOOD COUNT 9.22 K/ul (4.6-10.2)
[2020-08-01 05:07] LABS: ALANINE AMINOTRANSFERASE 16.3 U/L (0-35); ALBUMIN 3.79 g/dL (3.5-5.0); ALKALINE PHOSPHATASE 59.4 U/L (53-141); ANISOCYTOSIS NOT PRESENT (NOT PRESENT); ASPARTATE AMINO TRANSFERASE 19.1 U/L (14-36); BILIRUBIN,TOTAL 0.45 mg/dL (0.2-1.3); BLOOD UREA NITROGEN 34.9 mg/dL (7-17); CALCIUM 10.08 mg/dL (8.4-10.2); CARBON DIOXIDE 35.8 mmol/L (22-30.0); CHLORIDE 96.4 mmol/L (98-107); CREATININE 1.03 mg/dL (0.60-1.30); GLUCOSE 90.1 mg/dL (74-106); POTASSIUM 3.58 mmol/L (3.5-5.1); PROTHROMBIN TIME 31.3 SEC (9.3-11.0); SODIUM 136.5 mmol/L (134.5-145); TOTAL PROTEIN 6.2 g/dL (6.3-8.2)
[2020-08-01 05:57] VITALS: BP 118/58; TEMP 97.4
--- NOTE | 2020-08-01 09:23 | PCM.PROG ---
Attending Provider: ATTENDING PROVIDER: Dr. BIJAN ROWE This patient is seen with oLis Sarah, Nurse Practitioner. DATE OF SERVICE: 08/01/20 SUBJECTIVE: This 85 year old /WHITE F was hospitalized 07/26/20. The patient is resting comfortably. Still has cough with thick sputum. Not able to produce any. No fever. Has been up in the chair. The patient would benefit from Home Health for PT/OT REVIEW OF SYSTEMS: CONSTITUTIONAL: No night sweats. No fatigue, malaise, lethargy. No fever or chills. Weakness. HEENT: Eyes: No visual changes. No eye pain. No eye discharge. ENT: No runny nose. No epistaxis. No sinus pain. No odynophagia. No congestion. RESPIRATORY: Cough, no congestion. No hemoptysis. No shortness of breath. CARDIOVASCULAR: No angina symptoms. No CHF symptoms. No atypical chest pain for CAD. No palpitations. No orthopnea.. GASTROINTESTINAL: No abdominal pain. No nausea or vomiting. No diarrhea or constipation. No hematemesis. No hematochezia. GENITOURINARY: No urgency. No frequency. No dysuria. No hematuria. No obstructive symptoms. No discharge. No pain. No significant abnormal bleeding. MUSCULOSKELETAL: No musculoskeletal pain; no joint swelling. NEUROLOGICAL: Awake, alert, oriented to time, place and person. No headache. No neck pain. No syncope. No seizures. No dizziness. PSYCHIATRIC: Not anxious. No depression. No suicidal thoughts. No homicidal thoughts. SKIN: No rash. No lesions. No wounds. ENDOCRINE: No unexplained weight loss. No weight gain. HEMATOLOGIC/LYMPHATIC: No anemia. No purpura. No petechiae. No prolonged or excessive bleeding. No palpable lymph nodes. PHYSICAL EXAMINATION: GENERAL: The patient is awake, alert and oriented, lying in bed in no distress. VITAL SIGNS: Temperature 97.4 F, Pulse 60, Respiratory Rate 18, BP 118/58, Pulse Ox 99% HEENT: Head normocephalic, atraumatic. Eyes: Extraocular muscles are intact. Pupils are equal, round and reactive to light and accommodation. Ears: No lesions. Nose appeared normal. Throat: No exudate or erythema. NECK: Supple. No JVD, no carotid bruit. No lymphadenopathy or thyromegaly. LUNGS: Diminished breath sounds. Bilateral rhonchi. Clear to auscultation. Percussion note normal. Chest symmetrical. HEART: S1, S2, no S3. No murmurs. No cyanosis or clubbing. No ascites. Pulses: Dorsalis pedis and posterior tibial pulses +1 to +2 both sides. ABDOMEN: Soft. Non-tender. Bowel sounds active. No CVA tenderness. No mass felt. EXTREMITIES: No edema. Full range of motion of all extremities, equal. NEUROLOGIC: No focal deficit. Cranial nerves II through XII are grossly intact. No headache. No double vision. SKIN: Not dry. Intact. Turgor-normal. LYMPHATIC: No palpable lymph nodes/no lymphedema. MUSCULOSKELETAL: Normal joints with no swelling. Muscle tone is normal. LAB REVIEW: 08/01/20 04:05 08/01/20 04:05 08/01/20 04:05: Sodium 136.5, Potassium 3.58, Chloride 96.4 L, Carbon Dioxide 35.8 H, Anion Gap 7.88, BUN 34.9 H, Creatinine 1.03, Estimated GFR (MDRD) 51.00, BUN/Creatinine Ratio 33.88, Glucose 90.1, Calcium 10.08, Total Bilirubin 0.45, AST 19.1, ALT 16.3, Alkaline Phosphatase 59.4, Total Protein 6.20 L, Albumin 3.79, Globulin 2.41, Albumin/Globulin Ratio 1.57 08/01/20 04:05: PT 31.3 H, INR 2.92 08/01/20 04:05: WBC 9.22, RBC 4.67, Hgb 14.4, Hct 43.6, MCV 93.4, MCH 30.8, MCHC 33.0, RDW Coeff of Nataliya 14.6, Plt Count 198, Neutrophils % (Manual) 70.0, Lymphocytes % (Manual) 10.0, Monocytes % (Manual) 13.0 H, Myelocytes % 4.0 H, Reactive Lymphocytes 3.0, Anisocytosis Not present ASSESSMENT: Please see below. 1. Acute COPD exacerbation 2. UTI 3. Generalized weakness. PLAN: 1. Discharge home 2. Omnicef 300mg BID for 5 days 3. Prednisone 10mg BID for 5 days 4. Quaifenesin BID for 7 days 5. Home Health for PT/OT 6. Resume Coumadin this evening 7. Followup in the office next week. Plan and coordination of the patient's care discussed in the presence of Emergency Management Director and nurse. SCRIBED BY: Lesley ELLINGTON scribed while in presence of service performed by Dr. Rowe/Lois Sarah APRN on 08/01/20 ([id number])
[2020-08-01] MEDS: ROCEPHIN 1 GM/50 ML D5W 1 GM/50 ML BAG IV SCH (10:26)
[2020-08-01] MEDS: ZESTRIL PO SCH (10:26)
[2020-08-01] MEDS: NORVASC PO SCH (10:27)
[2020-08-01] MEDS: LEXAPRO PO SCH (10:27)
[2020-08-01] MEDS: TRIGLIDE PO SCH (10:29)
[2020-08-01] MEDS: FERROUS SULFATE PO SCH (10:29)
[2020-08-01] MEDS: PREDNISONE PO SCH (10:29)
[2020-08-01] MEDS: CALCIUM 500 + VIT D 5 MCG (200 IU) TABLET PO SCH (10:29)
[2020-08-01] MEDS: COLACE PO SCH (10:29)
[2020-08-01] MEDS: XANAX PO PRN (10:30)
--- NOTE | 2020-08-01 12:38 | CM.DICTOOL ---
ADMISSION: 07/26/20 05:21 DISCHARGE: AUGUST 01, 2020 DATE OF SERVICE: 08/01/20 FINAL DIAGNOSIS COPD EXACERBATION, OXYGEN AT HOME CHRONIC RESPIRATORY FAILURE UTI, E-COLI HYPOKALEMIA, RESOLVED HYPERTENSION SEVERE PERIPHERAL ARTERIAL DISEASE CHRONIC KIDNEY DISEASE, STAGE 3 ANXIETY DYSLIPIDEMIA HYPOTHYROIDISM CAROTID STENOSIS SEVERE ATHEROSCLEROTIC DISEASE ABDOMINAL AORTIC ANEURYSM CAD CVA, 2005 DEPRESSION DVT, LEFT LEG NEUROPATHY CHRONIC BACK PAIN NEUROPATHY DJD SPINE SUBDURAL HEMATOMA CAROTID ENDARTERECTOMY, LEFT CARDIAC CATH, 2005 FEM-POP BYPASS, 2005 VENA CAVA FILTER PLACEMENT, 2011 ANGIOPLASTY LLE, 2019 FEM-TIB BYPASS GRAFT, 2019 LEFT AKA, 07/2019 HIP FRACTURE, WITH HEMIARTHROPLASTY, DR. GALINDO POST OPERATIVE WOUND INFECTION, LEFT AKA ECHOCARDIOGRAM, COMPLETED 07/31/2020 LAST VITALS Temp Pulse Resp BP Pulse Ox 97.4 F L 60 18 118/58 L 97 08/01/20 05:56 08/01/20 05:56 08/01/20 05:56 08/01/20 05:56 08/01/20 10:00 TAKE THESE MEDICATIONS AT HOME Acetaminophen (Acetaminophen 325 Mg Tablet) 650 mg PO Q4H PRN PRN Reason: Mild Pain Last Admin: 07/28/20 08:29 Dose: 650 mg Documented by: Hydrocodone Bitart/Acetaminophen (Hydrocodone Bit/Acetaminophen 5/325 Mg Tablet) 1 tab PO Q6H PRN PRN Reason: MODERATE PAIN Last Admin: 07/31/20 21:22 Dose: 1 tab Documented by: Albuterol/Ipratropium (Ipratropium/Albuterol Vial.Neb) 3 ml NEB RTTID CHUY Last Admin: 08/01/20 04:10 Dose: 3 ml Documented by: Alprazolam (Alprazolam 0.25 Mg Tablet) 0.25 mg PO TID PRN PRN Reason: ANXIETY Last Admin: 08/01/20 10:30 Dose: 0.25 mg Documented by: Amlodipine Besylate (Amlodipine Besylate 5 Mg Tablet) 2.5 mg PO BID CHUY (NEW RX) Last Admin: 08/01/20 10:27 Dose: 2.5 mg Documented by: Atorvastatin Calcium (Atorvastatin Calcium 20 Mg Tablet) 40 mg PO BEDTIME CHUY Last Admin: 07/31/20 21:22 Dose: 40 mg Documented by: Bisacodyl (Bisacodyl 10 Mg Supp.Rect) 10 mg RC DAILY PRN PRN Reason: Constipation Calcium/Vitamin D (Calcium Carbonate/Vitamin D3 500 Mg/5 Mcg(200iu) 1 Each Tablet) 1 each PO BID [facility] Last Admin: 08/01/20 10:29 Dose: 1 each Documented by: Diphenhydramine HCl (Diphenhydramine Hcl 25 Mg Capsule) 25 mg PO BEDTIME PRN PRN Reason: Insomnia Docusate Sodium (Docusate Sodium 100 Mg Capsule) 100 mg PO BID [facility] Last Admin: 08/01/20 10:29 Dose: 100 mg Documented by: Escitalopram Oxalate (Escitalopram Oxalate 10 Mg Tablet) 10 mg PO DAILY [facility] Last Admin: 08/01/20 10:27 Dose: 10 mg Documented by: Fenofibrate (Fenofibrate 54 Mg Tablet) 54 mg PO DAILY [facility] Last Admin: 08/01/20 10:29 Dose: 54 mg Documented by: Ferrous Sulfate (Ferrous Sulfate 324 Mg Tablet.) 324 mg PO DAILY [facility] Last Admin: 08/01/20 10:29 Dose: 324 mg Documented by: Furosemide (Furosemide 20 Mg Tablet) 20 mg PO [id number] [facility] Last Admin: 07/31/20 05:33 Dose: 20 mg Documented by: Levothyroxine Sodium (Levothyroxine Sodium 75 Mcg Tablet) 75 mcg PO 0500 [facility] Last Admin: 08/01/20 04:39 Dose: 75 mcg Documented by: Lisinopril (Lisinopril 10 Mg Tablet) 20 mg PO BID [facility] (NEW RX) Last Admin: 08/01/20 10:26 Dose: 20 mg Documented by: Magnesium Hydroxide (Magnesium Hydroxide 30 Ml Cup) 5 ml PO DAILY PRN PRN Reason: Constipation Last Admin: 07/31/20 15:58 Dose: 5 ml Documented by: Potassium Chloride (Potassium Chloride 20 Meq Tab) 20 meq PO [email or web address] [facility] Last Admin: 07/31/20 09:29 Dose: 20 meq Documented by: Prednisone (Prednisone 10 Mg Tablet) 10 mg PO BIDWM [facility] (NEW RX FOR 5 DAYS) Last Admin: 08/01/20 10:29 Dose: 10 mg Documented by: Warfarin Sodium (Warfarin Sodium 3 Mg Tablet) 3 mg PO QPM [facility] Last Admin: 07/30/20 17:18 Dose: 3 mg Documented by: OMNICEF 300 MG BID FOR 5 DAYS (NEW RX) MUCINEX 600 MG BID FOR 7 DAYS (NEW RX) ALLERGIES denosumab [From Prolia] Adverse Reaction (Verified 04/27/19 16:43) propoxyphene HCl [From Darvon] Adverse Reaction (Verified 03/22/19 08:22) DISCONTINUED MEDICATIONS LISINOPRIL 10 MG DAILY NEW PRESCRIPTIONS: OMNICEF 300 MG BID FOR 5 DAYS PREDNISONE 10 MG BID FOR 5 DAYS MUCINEX 600 MG BID FOR 7 DAYS AMLODIPINE 2.5 MG BID ZESTRIL 20 MG BID SMOKING: NOT APPLICABLE DISEASE SPECIFIC EDUCATION: USE OF NEBULIZER TREATMENTS PRESCRIPTIONS, INCLUDING ORAL STEROIDS AND RISK OF GI IRRITATION, BONE DEMINERALIZATION APPOINTMENT [facility] LAB REVIEW: 08/01/20 04:05 08/01/20 04:05 08/01/20 04:05: Sodium 136.5, Potassium 3.58, Chloride 96.4 L, Carbon Dioxide 35.8 H, Anion Gap 7.88, BUN 34.9 H, Creatinine 1.03, Estimated GFR (MDRD) 51.00, BUN/Creatinine Ratio 33.88, Glucose 90.1, Calcium 10.08, Total Bilirubin 0.45, AST 19.1, ALT 16.3, Alkaline Phosphatase 59.4, Total Protein 6.20 L, Albumin 3.79, Globulin 2.41, Albumin/Globulin Ratio 1.57 08/01/20 04:05: PT 31.3 H, INR 2.92 08/01/20 04:05: WBC 9.22, RBC 4.67, Hgb 14.4, Hct 43.6, MCV 93.4, MCH 30.8, MCHC 33.0, RDW Coeff of Nataliya 14.6, Plt Count 198, Neutrophils % (Manual) 70.0, Lymphocytes % (Manual) 10.0, Monocytes % (Manual) 13.0 H, Myelocytes % 4.0 H, Reactive Lymphocytes 3.0, Anisocytosis Not present PLAN: DISCHARGE HOME WITH DAUGHTER DIET: REGULAR TOLERATED ACTIVITY: UP TO CHAIR TOLERATED AT LEAST 2 TIMES DAILY PARTICIPATE IN HOME HEALTH THERAPY FOR AMBULATION WITH LEFT LEG PROSTHESIS CONTINUE TO USE OXYGEN AT 2 LITERS PER CANNULA CONTINUE TO USE DUONEBS VIA NEBULIZER AT LEAST 2-3 TIMES DAILY HOME HEALTH REFERRAL: [facility]: NURSING ASSESSMENT TO INCLUDE NUTRITION, SKIN INTEGRITY, AND RESPIRATORY ASS ESSMENT PHYSICAL AND OCCUPATIONAL THERAPY FOR TRANSFERS, AMBULATION AND USE OF LEFT LEG PROSTHESIS AN APPOINTMENT IS SCHEDULED WITH DR. ROWE/MANUELA PERKINS APRN ON July AT 2 PM CODE STATUS: FULL CODE MS. THURMAN IS ALERT AND ORIENTED X 4. SHE IS FORGETFUL AT TIMES, MAINLY AT NIGHT. SHE IS INDEPENDENT WITH FEEDING. MEAL INTAKES ARE 25-75%. SHE REQUIRES ASSISTANCE WITH TURNING AND REPOSITIONING IN THE BED. SHE REQUIRES ASSISTANCE OF 2 STAFF MEMBERS FOR TRANSFERS TO THE [facility] OR BEDSIDE CHAIR. SHE HAS A LEFT LEG PROSTHESIS, BUT DOES NOT OFTEN USE BECAUSE IT IS DIFFICULT FOR HER TO APPLY. SHE IS ENCOURAGED TO CHANGE THE SHOE TYPE TO TENNIS SHOE FOR INCREASED STABILITY WHEN USING THE PROSTHESIS. SKIN IS INTACT. HYDRATION STATUS IS GOOD. MS. THURMAN IS CONTINENT OF BOWEL AND BLADDER, BUT ALSO HAS PERIODS OF URINARY DRIBBLING WITH COUGH AND REPOSITIONING. SHE HAS ALSO BEEN INCONTINENT OF URINE AT NIGHT. MS. THURMAN HAS OXYGEN, A NEBULIZER, WALKER, SHOWER CHAIR FOR HER USE AT HOME. SHE IS AGREEABLE TO A HOME HEALTH REFERRAL. [facility] HAS BEEN CONTACTED WITH ORDER FOR HOME HEALTH. MD MANUELA PEREZ APRN
--- NOTE | 2020-08-01 12:45 | PN ---
DATE OF SERVICE: 07/31/2020 SUBJECTIVE: The patient was seen and examined with the Nurse Practitioner. The patient's condition is stable. She still has congested cough. Echo showed normal LV contractility and normal LV size with valves. Daughter was present in the room and discussed the diagnosis. 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 TIME SPENT: More than 30 minutes. Plan and coordination of the patient's care discussed in the presence of nurse. ARASH
--- NOTE | 2020-08-02 08:23 | PN ---
DATE OF SERVICE: 07/30/2020 SUBJECTIVE: 85 year old white female hospitalized with COPD exacerbation and UTI. The patient's condition has steadily improved. She is feeling better and coughing is much less. No symptoms of UTI. REVIEW OF SYSTEMS: CONSTITUTIONAL: No night sweats. No fatigue, malaise, lethargy. No fever or chills. HEENT: Eyes: No visual changes. No eye pain. No eye discharge. ENT: No runny nose. No epistaxis. No sinus pain. No sore throat. No odynophagia. No congestion. RESPIRATORY: No cough, no congestion. No hemoptysis. No shortness of breath. CARDIOVASCULAR: No angina symptoms. No CHF symptoms. No atypical chest pain for CAD. No palpitations. No PND. No orthopnea. GASTROINTESTINAL: No abdominal pain. No nausea or vomiting. No diarrhea or constipation. No hematemesis. No hematochezia. Eating better and feeling better. GENITOURINARY: No urgency. No frequency. No dysuria. No hematuria. No obstructive symptoms. No discharge. No pain. No significant abnormal bleeding. MUSCULOSKELETAL: No musculoskeletal pain; no joint swelling. NEUROLOGICAL: No headache. No neck pain. No syncope. No seizures. No dizziness. PSYCHIATRIC: Not anxious. No depression. No suicidal thoughts. No homicidal thoughts. SKIN: No rash. No lesions. No wounds. ENDOCRINE: No unexplained weight loss. No weight gain. HEMATOLOGIC/LYMPHATIC: No anemia. No purpura. No petechiae. No prolonged or excessive bleeding. No palpable lymph nodes. PHYSICAL EXAMINATION: VITAL SIGNS: Temperature 97.9, pulse 53, respiratory rate 15 and blood pressure 133/67 and pulse ox 96%. HEENT: Head normocephalic, atraumatic. Eyes: Extraocular muscles are intact. Pupils are equal, round and reactive to light and accommodation. Ears: No lesions. Nose appeared normal. Throat: No exudate or erythema. NECK: Supple. No JVD, no carotid bruit. No lymphadenopathy or thyromegaly. LUNGS: Clear to auscultation. Percussion note normal. Chest symmetrical. HEART: S1, S2, no S3. No murmurs. No cyanosis or clubbing. No ascites. Pulses: Dorsalis pedis and posterior tibial pulses +1 to +2 bilaterally. ABDOMEN: Soft. Nontender. Bowel sounds active. No CVA tenderness. No mass felt. EXTREMITIES: No edema. Full range of motion of all extremities, equal. Left above knee amputation. NEUROLOGIC: No focal deficit. Cranial nerves II through XII are grossly intact. No headache. No double vision. SKIN: Not dry. Intact. Turgor - normal. LYMPHATIC: No palpable lymph nodes/no lymphedema. MUSCULOSKELETAL: Normal joints with no swelling. Muscle tone is normal. LABS: Hgb 14, hct 42, WBC 7,000 normal differentia, creatinine 0.8, BUN 32, potassium 4.1. ASSESSMENT: 1. UTI 2. COPD exacerbation seems to be under control PLAN: 1. Continue Antibiotics, steroids and NEBS 2. The patient is improving. 3. 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 TIME SPENT: More than 30 minutes. Plan and coordination of the patient's care discussed in the presence of nurse. ARASH
--- NOTE | 2020-08-02 08:42 | PN ---
DATE OF SERVICE: 07/29/2020 SUBJECTIVE: 85 year old white female hospitalized with UTI and acute bronchitis with COPD exacerbation. The patient's condition seems to have improved. She says that she is feeling better cough is still there. REVIEW OF SYSTEMS: CONSTITUTIONAL: No night sweats. No fatigue, malaise, lethargy. No fever or chills. HEENT: Eyes: No visual changes. No eye pain. No eye discharge. ENT: No runny nose. No epistaxis. No sinus pain. No sore throat. No odynophagia. No congestion. RESPIRATORY: No cough, no congestion. No hemoptysis. No shortness of breath. CARDIOVASCULAR: No angina symptoms. No CHF symptoms. No atypical chest pain for CAD. No palpitations. No PND. No orthopnea. GASTROINTESTINAL: No abdominal pain. No nausea or vomiting. No diarrhea or constipation. No hematemesis. No hematochezia. Appetite seems to have improved. GENITOURINARY: No urgency. No frequency. No dysuria. No hematuria. No obstructive symptoms. No discharge. No pain. No significant abnormal bleeding. MUSCULOSKELETAL: No musculoskeletal pain; no joint swelling. NEUROLOGICAL: No headache. No neck pain. No syncope. No seizures. No dizziness. PSYCHIATRIC: Not anxious. No depression. No suicidal thoughts. No homicidal thoughts. SKIN: No rash. No lesions. No wounds. ENDOCRINE: No unexplained weight loss. No weight gain. HEMATOLOGIC/LYMPHATIC: No anemia. No purpura. No petechiae. No prolonged or excessive bleeding. No palpable lymph nodes. PHYSICAL EXAMINATION: VITAL SIGNS: Temperature 97.5, pulse 56, respiratory rate 20, blood pressure 140/59 and pulse ox 93%. HEENT: Head normocephalic, atraumatic. Eyes: Extraocular muscles are intact. Pupils are equal, round and reactive to light and accommodation. Ears: No lesions. Nose appeared normal. Throat: No exudate or erythema. NECK: Supple. No JVD, no carotid bruit. No lymphadenopathy or thyromegaly. LUNGS: Decreased breath sounds with mild wheeze but good air entry. Percussion note normal. Chest symmetrical. HEART: S1, S2, no S3. No murmurs. No cyanosis or clubbing. No ascites. Pulses: Dorsalis pedis and posterior tibial pulses +1 to +2 bilaterally. ABDOMEN: Soft. Nontender. Bowel sounds active. No CVA tenderness. No mass felt. EXTREMITIES: No edema. Full range of motion of all extremities, equal. Left above knee amputation. NEUROLOGIC: No focal deficit. Cranial nerves II through XII are grossly intact. No headache. No double vision. SKIN: Not dry. Intact. Turgor - normal. LYMPHATIC: No palpable lymph nodes/no lymphedema. MUSCULOSKELETAL: Normal joints with no swelling. Muscle tone is normal. LABS: Hgb 12.9, hct 39, WBC 66,100 normal differential, creatinine 0.7, BUN 20, potassium 4.4. ASSESSMENT: 1. Acute bronchitis with COPD exacerbation seems to be resolving 2. UTI seems to be under control 3. Severe chronic lung disease PLAN: 1. Continue steroids, antibiotics and NEBS TIME SPENT: More than 30 minutes. Plan and coordination of the patient's care discussed in the presence of nurse. ARASH
--- NOTE | 2020-08-04 11:25 | PN ---
DATE OF SERVICE: 08/01/2020 SUBJECTIVE: The patient was seen and examined with the Nurse Practitioner. Condition has improved. Her bronchitis seems to be under control. She is going to be discharged on Mucinex, antibiotics, steroids. UTI is under control. She is going to be discharged home. TIME SPENT: More than 30 minutes. Plan and coordination of the patient's care discussed in the presence of nurse. ARASH
--- NOTE | 2020-08-04 11:27 | PN ---
07/26/2020: Level 5 07/27/2020: Intermediate 07/28/2020: Intermediate 07/29/2020: Intermediate 07/30/2020: Intermediate 07/31/2020: Intermediate 08/01/2020: Discharge MTDD
--- NOTE | 2020-08-04 13:11 | ECHO2D ---
Date of Exam: 07/31/2020 Ordering Physician: DR. BIJAN ROWE Room #: [id number] Reason for Echo: SHORT OF AIR M-Mode Normal Adult Results LV Dimensions Normal Adult Results AoV Opening excursions >1.6 >1.6 LVEDD-base- 3.5-5.8 3.9 Ao root dimensions 2.0-3.7 3.1 LVESD-base- 3.1-4.6 L. Atrium dimensions 1.9-3.8 4.1 Post. Wall thickness 0.8-1.1 1.1 IV septum (thickness) 0.7-1.2 1.3 Post. Wall excursion 0.72-1.3 NORMAL Septal motion NORMAL Systolic motion R. Ventricular cavity 1.5-2.0 3.1 LVEF 60% 68% Paradoxical septal wall motion NORMAL 2-D : 2-D M Mode Echocardiogram was performed using apical four chamber and left parasternal long and short axis views. Mitral, tricuspid and aortic valves appear to be normal. Contractility of the left ventricle seems to be normal, so is the cavity size. ENLARGED LEFT ATRIAL AND RIGHT VENTRICLE CAVITIES, Aortic root appears to be normal. There is no pericardial effusion. There is no thrombus noted in the left ventricle or left atrial cavity. M-MODE: MV: NORMAL AV: NORMAL TV: NORMAL PV: CHAMBER SIZE: ENLARGED LEFT ATRIAL AND RIGHT VENTRICLE CAVITIES WALL MOTION: NORMAL PERICARDIUM: NORMAL INTERPRETATION: 1. BORDERLINE LEFT VENTRICULAR HYPERTROPHY WITH ENLARGED LEFT ATRIAL CAVITY 2. ENLARGED RIGHT VENTRICLE CAVITY 3. NORMAL VALVES 4. NORMAL LEFT VENTRICLE SIZE AND LEFT VENTRICLE CONTRACTILITY [facility]
--- NOTE | 2020-08-04 13:32 | PN ---
DATE OF SERVICE: 07/29/2020 SUBJECTIVE: The patient was seen and examined with the Nurse Practitioner. The patient's condition is improving. She has UTI and COPD exacerbation. She is going to be on Rocephin. Doxycycline will be discontinued. Blood gasses are acceptable. Cardiovascular status is stable with no symptoms of CHF or coronary insufficiency. TIME SPENT: More than 30 minutes. Plan and coordination of the patient's care discussed in the presence of nurse. ARASH
--- NOTE | 2020-08-10 11:25 | DS ---
DATE OF SERVICE: 08/01/2020 FINAL DIAGNOSIS: COPD EXACERBATION, OXYGEN AT HOME CHRONIC RESPIRATORY FAILURE UTI, E-COLI HYPOKALEMIA, RESOLVED HYPERTENSION SEVERE PERIPHERAL ARTERIAL DISEASE CHRONIC KIDNEY DISEASE, STAGE 3 ANXIETY DYSLIPIDEMIA HYPOTHYROIDISM CAROTID STENOSIS SEVERE ATHEROSCLEROTIC DISEASE ABDOMINAL AORTIC ANEURYSM CAD CVA, 2005 DEPRESSION DVT, LEFT LEG NEUROPATHY CHRONIC BACK PAIN NEUROPATHY DJD SPINE SUBDURAL HEMATOMA CAROTID ENDARTERECTOMY, LEFT CARDIAC CATH, 2005 FEM-POP BYPASS, 2005 VENA CAVA FILTER PLACEMENT, 2011 ANGIOPLASTY LLE, 2019 FEM-TIB BYPASS GRAFT, 2019 LEFT AKA, 07/2019 HIP FRACTURE, WITH HEMIARTHROPLASTY, DR. GALINDO POST OPERATIVE WOUND INFECTION, LEFT AKA ECHOCARDIOGRAM, COMPLETED 07/31/2020 LAST VITALS: Temp Pulse Resp BP Pulse Ox 97.4 F L 60 18 118/58 L 97 08/01/20 05:56 08/01/20 05:56 08/01/20 05:56 08/01/20 05:56 08/01/20 10:00 DISCHARGE INSTRUCTIONS: DISCHARGE HOME WITH DAUGHTER. PARTICIPATE IN HOME HEALTH THERAPY FOR AMBULATION WITH LEFT LEG PROSTHESIS. CONTINUE TO USE OXYGEN AT 2 LITERS PER CANNULA. CONTINUE TO USE DUONEBS VIA NEBULIZER AT LEAST 2-3 TIMES DAILY. HOME HEALTH REFERRAL: [facility]: NURSING ASSESSMENT TO INCLUDE NUTRITION, SKIN INTEGRITY, AND RESPIRATORY ASSESSMENT, PHYSICAL AND OCCUPATIONAL THERAPY FOR TRANSFERS, AMBULATION AND USE OF LEFT LEG PROSTHESIS, AN APPOINTMENT IS SCHEDULED WITH DR. ROWE/MANUELA PERKINS APRN ON July AT 2 PM. TAKE THESE MEDICATIONS AT HOME: Acetaminophen (Acetaminophen 325 Mg Tablet) 650 mg PO Q4H PRN PRN Reason: Mild Pain Last Admin: 07/28/20 08:29 Dose: 650 mg Documented by: Hydrocodone Bitart/Acetaminophen (Hydrocodone Bit/Acetaminophen 5/325 Mg Tablet) 1 tab PO Q6H PRN PRN Reason: MODERATE PAIN Last Admin: 07/31/20 21:22 Dose: 1 tab Documented by: Albuterol/Ipratropium (Ipratropium/Albuterol Vial.Neb) 3 ml NEB RTTID CHUY Last Admin: 08/01/20 04:10 Dose: 3 ml Documented by: Alprazolam (Alprazolam 0.25 Mg Tablet) 0.25 mg PO TID PRN PRN Reason: ANXIETY Last Admin: 08/01/20 10:30 Dose: 0.25 mg Documented by: Amlodipine Besylate (Amlodipine Besylate 5 Mg Tablet) 2.5 mg PO BID [facility] (NEW RX) Last Admin: 08/01/20 10:27 Dose: 2.5 mg Documented by: Atorvastatin Calcium (Atorvastatin Calcium 20 Mg Tablet) 40 mg PO BEDTIME [facility] Last Admin: 07/31/20 21:22 Dose: 40 mg Documented by: Bisacodyl (Bisacodyl 10 Mg Supp.Rect) 10 mg RC DAILY PRN PRN Reason: Constipation Calcium/Vitamin D (Calcium Carbonate/Vitamin D3 500 Mg/5 Mcg(200iu) 1 Each Tablet) 1 each PO BID [facility] Last Admin: 08/01/20 10:29 Dose: 1 each Documented by: Diphenhydramine HCl (Diphenhydramine Hcl 25 Mg Capsule) 25 mg PO BEDTIME PRN PRN Reason: Insomnia Docusate Sodium (Docusate Sodium 100 Mg Capsule) 100 mg PO BID [facility] Last Admin: 08/01/20 10:29 Dose: 100 mg Documented by: Escitalopram Oxalate (Escitalopram Oxalate 10 Mg Tablet) 10 mg PO DAILY [facility] Last Admin: 08/01/20 10:27 Dose: 10 mg Documented by: Fenofibrate (Fenofibrate 54 Mg Tablet) 54 mg PO DAILY [facility] Last Admin: 08/01/20 10:29 Dose: 54 mg Documented by: Ferrous Sulfate (Ferrous Sulfate 324 Mg Tablet.Dr) 324 mg PO DAILY [facility] Last Admin: 08/01/20 10:29 Dose: 324 mg Documented by: Furosemide (Furosemide 20 Mg Tablet) 20 mg PO [email or web address] [facility] Last Admin: 07/31/20 05:33 Dose: 20 mg Documented by: Levothyroxine Sodium (Levothyroxine Sodium 75 Mcg Tablet) 75 mcg PO 0500 [facility] Last Admin: 08/01/20 04:39 Dose: 75 mcg Documented by: Lisinopril (Lisinopril 10 Mg Tablet) 20 mg PO BID [facility] (NEW RX) Last Admin: 08/01/20 10:26 Dose: 20 mg Documented by: Magnesium Hydroxide (Magnesium Hydroxide 30 Ml Cup) 5 ml PO DAILY PRN PRN Reason: Constipation Last Admin: 07/31/20 15:58 Dose: 5 ml Documented by: Potassium Chloride (Potassium Chloride 20 Meq Tab) 20 meq PO [email or web address] [facility] Last Admin: 07/31/20 09:29 Dose: 20 meq Documented by: Prednisone (Prednisone 10 Mg Tablet) 10 mg PO BIDWM CHUY (NEW RX FOR 5 DAYS) Last Admin: 08/01/20 10:29 Dose: 10 mg Documented by: Warfarin Sodium (Warfarin Sodium 3 Mg Tablet) 3 mg PO QPM [facility] Last Admin: 07/30/20 17:18 Dose: 3 mg Documented by: OMNICEF 300 MG BID FOR 5 DAYS (NEW RX) MUCINEX 600 MG BID FOR 7 DAYS (NEW RX) ALLERGIES: denosumab [From Prolia] Adverse Reaction (Verified 04/27/19 16:43) propoxyphene HCl [From Darvon] Adverse Reaction (Verified 03/22/19 08:22) DISCONTINUED MEDICATIONS: LISINOPRIL 10 MG DAILY NEW PRESCRIPTIONS: OMNICEF 300 MG BID FOR 5 DAYS PREDNISONE 10 MG BID FOR 5 DAYS MUCINEX 600 MG BID FOR 7 DAYS AMLODIPINE 2.5 MG BID ZESTRIL 20 MG BID SMOKING: NOT APPLICABLE DISEASE SPECIFIC EDUCATION: USE OF NEBULIZER TREATMENTS PRESCRIPTIONS, INCLUDING ORAL STEROIDS AND RISK OF GI IRRITATION, BONE DEMINERALIZATION APPOINTMENT HOME HEALTH FOR THERAPY LAB REVIEW: 08/01/20 04:05 08/01/20 04:05 08/01/20 04:05: Sodium 136.5, Potassium 3.58, Chloride 96.4 L, Carbon Dioxide 35.8 H, Anion Gap 7.88, BUN 34.9 H, Creatinine 1.03, Estimated GFR (MDRD) 51.00, BUN/Creatinine Ratio 33.88, Glucose 90.1, Calcium 10.08, Total Bilirubin 0.45, AST 19.1, ALT 16.3, Alkaline Phosphatase 59.4, Total Protein 6.20 L, Albumin 3.79, Globulin 2.41, Albumin/Globulin Ratio 1.57 08/01/20 04:05: PT 31.3 H, INR 2.92 08/01/20 04:05: WBC 9.22, RBC 4.67, Hgb 14.4, Hct 43.6, MCV 93.4, MCH 30.8, MCHC 33.0, RDW Coeff of Nataliya 14.6, Plt Count 198, Neutrophils % (Manual) 70.0, Lymphocytes % (Manual) 10.0, Monocytes % (Manual) 13.0 H, Myelocytes % 4.0 H, Reactive Lymphocytes 3.0, Anisocytosis Not present DIET: REGULAR TOLERATED ACTIVITY: UP TO CHAIR TOLERATED AT LEAST 2 TIMES DAILY CODE STATUS: FULL CODE HOSPITAL COURSE: The patient was brought to the emergency room and admitted with shortness of breath and urinary tract infection. Urine for positive for e-coli and sensitive to Rocephin. Chest x-ray revealed COPD changes, no pneumonia. She was admitted and placed on Rocephin 1 gram IV daily along with Solu-Cortef 80mg IV Q 12 hours. Also started on Pulmicort 1mg BID NEB along with Albuterol NEB TID scheduled. She is oxygen dependant and this is continued. ABG were stable for her on 2 liters. She is eating relatively well. She is Coumadin for severe PAD, history of CVA and this was monitored daily and remained controlled. For the past few days she has been eating well. She does still have a cough with thick sputum. We will send her home on Omnicef 300mg PO BID for 5 days, Prednisone 10mg BID for 5 days, Mucinex 600mg BID for 7 days. Blood pressure was also elevated during hospitalize stay. We increased her Zestril 20mg BID and added Amlodipine 2.5mg BID and she has tolerated this well. Blood pressure is 118/58 today. She will go home. She has oxygen at home along with a nebulizer. We will followup with her in the office next. She is discharged in stable condition. TIME SPENT: More than 60 minutes. MTDD
== END 2020-08-01 13:40 | disposition home or self-care (01) | DRG 189 ==
LOC: ED 01:03 → MEDSURG A 05:21
PROVIDERS: ADMIT Internal Medicine; ATTEND Internal Medicine
DX: E78.5 Hyperlipidemia, unspecified; F41.9 Anxiety disorder, unspecified; R05 Cough; I10 Essential (primary) hypertension; J96.10 Chronic respiratory failure, unspecified whether with hypoxia or hypercapnia; N18.30 Chronic kidney disease, stage 3 unspecified; R06.02 Shortness of breath; R53.1 Weakness; Z99.81 Dependence on supplemental oxygen; Z79.01 Long term (current) use of anticoagulants; E87.6 Hypokalemia; Z20.822 Contact with and (suspected) exposure to COVID-19; R41.0 Disorientation, unspecified; I73.9 Peripheral vascular disease, unspecified; B96.20 Unspecified Escherichia coli [E. coli] as the cause of diseases classified elsewhere; N39.0 Urinary tract infection, site not specified

== ENCOUNTER 2020-12-20 18:29 | Inpatient (IN) ==
[2020-12-20 19:57] LABS: BASOPHILS # (AUTO) 0.1 K/uL (0-0.2); BASOPHILS % (AUTO) 0.5 % (0.0-3.0); EOSINOPHILS # (AUTO) 0.1 K/ul (0.0-0.7); EOSINOPHILS % (AUTO) 0.9 % (0.0-7.0); HEMATOCRIT 47.3 % (37.0-47.0); HEMOGLOBIN 15.4 g/dl (12.0-16.0); IMMATURE GRANULOCYTE # (AUTO) 0.1 (0.0-1.0); IMMATURE GRANULOCYTE % (AUTO) 0.5 % (0.0-5.0); LYMPHOCYTES # (AUTO) 0.8 K/uL (0.60-3.4); LYMPHOCYTES % (AUTO) 5.8 (10.0-50.0); MEAN CORPUSCULAR HEMOGLOBIN 30.4 pg (27.0-31.0); MEAN CORPUSCULAR HGB CONC 32.6 (31.8-35.4); MEAN CORPUSCULAR VOLUME 93.5 fl (81.0-99.0); MONOCYTES # (AUTO) 0.5 K/uL (0.4-2.0); MONOCYTES % (AUTO) 3.3 (0-10); NEUTROPHILS # (AUTO) 12.8 K/ul (2.0-6.9); PLATELET COUNT 122 10^3/uL (140-440); RED BLOOD COUNT 5.06 10^6/ul (4.20-5.40); WHITE BLOOD COUNT 14.39 K/ul (4.6-10.2)
[2020-12-20 20:11] LABS: ALANINE AMINOTRANSFERASE 12.4 U/L (0-35); ALBUMIN 4.48 g/dL (3.5-5.0); ALKALINE PHOSPHATASE 68.6 U/L (53-141); ASPARTATE AMINO TRANSFERASE 23.6 U/L (14-36); BILIRUBIN,TOTAL 0.88 mg/dL (0.2-1.3); BLOOD UREA NITROGEN 15.1 mg/dL (7-17); CALCIUM 10.27 mg/dL (8.4-10.2); CARBON DIOXIDE 26.2 mmol/L (22-30.0); CHLORIDE 102.2 mmol/L (98-107); CREATININE 0.79 mg/dL (0.60-1.30); GLUCOSE 108.8 mg/dL (74-106); POTASSIUM 3.02 mmol/L (3.5-5.1); SODIUM 138.2 mmol/L (134.5-145); TOTAL PROTEIN 6.95 g/dL (6.3-8.2)
--- NOTE | 2020-12-20 20:11 | DI ---
EXAM: Frontal view of the chest. HISTORY: Weakness. Fever. Cough. COMPARISON: Chest radiograph 04/30/2019. FINDINGS: Calcific atherosclerosis of the aorta. Normal heart size. Ground-glass opacities at the lung bases bilaterally. Scattered calcified granulomas. No visible effusion or pneumothorax. No acute osseous abnormality. IVC filter noted. IMPRESSION: 1. Mild bibasilar opacities concerning for pneumonia. 2. Calcific atherosclerosis.
--- NOTE | 2020-12-20 20:20 | ED.PDOC ---
General ED Provider: Dr. CONY GALLARDO Chief Complaint: Weakness Stated Complaint: Comes to the ER with complaints of weakness and cough. She was diagnosed with a UTI 3 days ago and placed on macribid which she has been taking. States that she uses oxygen at night and as needed. Time Seen by Provider: 12/20/20 19:22 Mode of Arrival: Stretcher Information Source: Patient Primary Care Provider: BIJAN ROWE Nursing and Triage Documentation Reviewed and Agree: Yes Does patient meet sepsis criteria?: No System Inflammatory Response Syndrome: Not Applicable Sepsis Protocol: For patient's 13 years and over: Temp is 96.8 and below OR 101 and greater Pulse >90 BPM Resp >20/minute Acutely Altered Mental Status Are patient's symptoms suggestive of a new infection, such as: -Pneumonia -Skin, Soft Tissue -Endocarditis -UTI -Bone, Joint Infection -Implantable Device -Acute Abdominal Infection -Wound Infection -Meningitis -Blood Stream Catheter Infection -Unknown Review of Systems Review Of Systems Constitutional: Reports No symptoms Eyes: Reports No symptoms Ears, Nose, Mouth, Throat: Reports Throat pain Respiratory: Reports Cough Cardiac: Reports No symptoms GI: Reports No symptoms : Reports Dysuria Musculoskeletal: Reports No symptoms Skin: Reports No symptoms Neurological: Reports Anxiety Endocrine: Reports No symptoms All Other Systems: Reviewed and Negative [facility] Medical History Abnormal liver function Amputation above knee Back pain Brain bleed CAD (coronary artery disease) COPD (chronic obstructive pulmonary disease) Degenerative joint disease of spine Depression DVT (deep venous thrombosis) Elevated cholesterol Hypertension Hypothyroid Neuropathy Osteoarthritis Ovarian cyst PAD (peripheral artery disease) Pedal edema Stroke Tibia fracture Family History FATHER Colon cancer Mother Colon cancer Other Pancreatic cancer Social History Smoking and tobacco status: Former smoker History of recent travel: No Surgical History History of intravascular stent placement Female Reproductive History Menstrual Hx Hysterectomy: No Hx Tubal Ligation: No Physical Exam Physical Exam Appearance: Reports Ill-appearing Ill-appearing: Mild Pain Distress: None Eyes: Reports DICK, EOMI and Conjunctiva clear ENT: Reports Nose normal and Oropharynx normal Neck: Supple Respiratory: Reports Airway patent, Breath sounds clear and Rhonchi (on the left ) Cardiovascular: Reports RRR and Pulses normal GI/: Reports Soft, Nontender and Other (palpation makes her feel like she wants to urinate.) Musculoskeletal: Reports Normal strength Skin: Reports Warm and Dry Neurological: Reports Motor intact, Alert and Oriented Psychiatric: Reports Anxious Interpretation Radiology Interpretation Radiology Interpretation By: Radiologist Radiology Results: Positive (1. Mild bibasilar opacities concerning for pneumonia. 2. Calcific atherosclerosis. ) Exam Interpreted: Portable CXR Critical Care Note Critical Care Note Total Critical Care Time (mins): 40 Course Course Hematology/Chemistry: 12/20/20 19:52 12/20/20 19:52 Orders, Labs, Meds: Lab Review 12/20/20 12/20/20 12/20/20 19:52 19:52 19:52 WBC 14.39 H RBC 5.06 Hgb 15.4 Hct 47.3 H MCV 93.5 MCH 30.4 MCHC 32.6 RDW Coeff of Nataliya 14.0 Plt Count 122 L Immature Gran % (Auto) 0.5 Neut % (Auto) 89.0 H Lymph % (Auto) 5.8 L Walsh % (Auto) 3.3 Eos % (Auto) 0.9 Baso % (Auto) 0.5 Neut # (Auto) 12.8 H Lymph # (Auto) 0.8 Walsh # (Auto) 0.5 Eos # (Auto) 0.1 Baso # (Auto) 0.1 Immature Gran # (Auto) 0.1 Puncture Site Base Excess O2 Saturation ABG pH ABG pCO2 ABG pO2 ABG HCO3 ABG Total CO2 Micheal Test Hemoglobin Oxyhemoglobin Carboxyhemoglobin Total Hemoglobin FiO2 % Sodium 138.2 Potassium 3.02 L Chloride 102.2 Carbon Dioxide 26.2 Anion Gap 12.82 BUN 15.1 Creatinine 0.79 Estimated GFR (MDRD) 69.00 BUN/Creatinine Ratio 19.11 Glucose 108.8 H Lactic Acid Calcium 10.27 H Total Bilirubin 0.88 AST 23.6 ALT 12.4 Alkaline Phosphatase 68.6 Total Protein 6.95 Albumin 4.48 Globulin 2.47 Albumin/Globulin Ratio 1.81 Procalcitonin < 0.05 12/20/20 12/20/20 19:52 20:36 WBC RBC Hgb Hct MCV MCH MCHC RDW Coeff of Nataliya Plt Count Immature Gran % (Auto) Neut % (Auto) Lymph % (Auto) Walsh % (Auto) Eos % (Auto) Baso % (Auto) Neut # (Auto) Lymph # (Auto) Walsh # (Auto) Eos # (Auto) Baso # (Auto) Immature Gran # (Auto) Puncture Site Rrad Base Excess 2.5 O2 Saturation 81.1 L ABG pH 7.47 H ABG pCO2 36.0 ABG pO2 42.0 L* ABG HCO3 26.2 ABG Total CO2 27.3 H Micheal Test Pos Hemoglobin 1.5 Oxyhemoglobin 82.2 L Carboxyhemoglobin 2.2 H Total Hemoglobin 16.0 FiO2 % 21.0 Sodium Potassium Chloride Carbon Dioxide Anion Gap BUN Creatinine Estimated GFR (MDRD) BUN/Creatinine Ratio Glucose Lactic Acid 0.90 Calcium Total Bilirubin AST ALT Alkaline Phosphatase Total Protein Albumin Globulin Albumin/Globulin Ratio Procalcitonin Orders Category Date Time Status ABG DRAW REQUEST Stat CARDIO 12/20/20 20:21 Completed EKG-(ED ONLY) Stat CARDIO 12/20/20 20:20 Completed ED APPLY O2 .ONCE EMERGENCY 12/20/20 19:24 Active ED DIRECTOR OF WORKFORCE DEVELOPMENT APPLIED .ONCE EMERGENCY 12/20/20 19:24 Active ED VITAL SIGNS Q1HR EMERGENCY 12/20/20 19:24 Active ABG COOX Stat LAB 12/20/20 20:36 Completed BLOOD CULTURE (ED ONLY) Stat LAB 12/20/20 19:52 Received CBC W/ AUTO DIFF Stat LAB 12/20/20 19:52 Completed COMPREHENSIVE METABOLIC PANEL Stat LAB 12/20/20 19:52 Completed LACTIC ACID Stat LAB 12/20/20 19:52 Completed MOLECULAR GROUP A STREP Stat LAB 12/20/20 21:10 Completed PROCALCITONIN Stat LAB 12/20/20 19:52 Completed RESPIRATORY PANEL 2.1 (PCR) Stat LAB 12/20/20 19:25 Ordered URINALYSIS C & S IF INDICATED Stat LAB 12/20/20 19:23 Ordered Azithromycin Inj [Zithromax] 500 mg MEDS 12/20/20 20:27 Active 0.9 % Sodium Chloride [Sodium Chloride] 250 ml IV ONCE Ceftriaxone/D5w 1 gm Premix [Rocephin 1 gm/50 ml D5w] MEDS 12/20/20 20:27 Discontinued 1 gm in 50 ml IV ONCE CHEST, 1V AP ONLY Stat RADS 12/20/20 19:24 Completed Medications Generic Name Dose Route Start Last Admin Trade Name Freq PRN Reason Stop Dose Admin Azithromycin 500 mg/ Sodium 250 mls @ 125 mls/hr 12/20/20 20:27 12/20/20 20:50 Chloride IV 12/20/20 22:26 125 mls/hr ONCE ONE Administration Discontinued Medications Generic Name Dose Route Start Last Admin Trade Name Freq PRN Reason Stop Dose Admin CEFTRIAXONE/D5W 1 GM PREMIX 1 gm in 50 mls @ 75 mls/hr 12/20/20 20:27 12/20/20 20:50 Rocephin 1 Gm/50 Ml D5w IV 12/20/20 21:06 75 mls/hr ONCE STA Administration Vital Signs: Temp Pulse Resp BP Pulse Ox 12/20/20 18:35 100.0 F H 85 20 161/63 H 96 Discharge Plan Discharge Patient Disposition: ADMITTED INPATIENT Discharge Problem: Pneumonia Qualifiers: Pneumonia type: due to unspecified organism Laterality: bilateral Lung location: lower lobe of lung Qualified Code(s): J18.9 - Pneumonia, unspecified organism ED Provider: MIREILLE FERMIN Condition: Fair Physician Progress Note: []
[2020-12-20] MEDS ORDERED: ZITHROMAX 500 MG in SODIUM CHLORIDE 250 ML IV ONE (20:27)
[2020-12-20] MEDS ORDERED: ROCEPHIN 1 GM/50 ML D5W 1 GM/50 ML BAG IV STA (20:27)
[2020-12-20 20:41] LABS: ABG O2 HGB 82.2 % (95-100); ABG PH 7.47 (7.35-7.45); BEecf 2.5 (-2.0-3.0); COHb 2.2 (0.5-1.5); HCO3 26.2 (21-28); MetHb 1.5 (0-1.5); TCO2 27.3 (19-24); sO2 81.1 % (94-98)
[2020-12-20 22:08] LABS: ADENOVIRUS (PCR) NOT DETECTED (NOT DETECT); BORDETELLA PARAPERTUSSIS (PCR) NOT DETECTED (NOT DETECT); BORDETELLA PERTUSSIS (PCR) NOT DETECTED (NOT DETECT); CHLAMYDIA PNEUMONIAE (PCR) NOT DETECTED (NOT DETECT); CORONAVIRUS 229E (PCR) NOT DETECTED (NOT DETECT); CORONAVIRUS HKU1 (PCR) NOT DETECTED (NOT DETECT); CORONAVIRUS NL63 (PCR) NOT DETECTED (NOT DETECT); CORONAVIRUS OC43 (PCR) NOT DETECTED (NOT DETECT); HUMAN METAPNEUMOVIRUS (PCR) NOT DETECTED (NOT DETECT); HUMAN RHINOVIRUS/ENTEROV (PCR) NOT DETECTED (NOT DETECT); INFLUENZA B (PCR) NOT DETECTED (NOT DETECT); MYCOPLASMA PNEUMONIAE (PCR) NOT DETECTED (NOT DETECT); PARAINFLUENZA VIRUS 1 (PCR) NOT DETECTED (NOT DETECT); PARAINFLUENZA VIRUS 2 (PCR) NOT DETECTED (NOT DETECT); PARAINFLUENZA VIRUS 3 (PCR) NOT DETECTED (NOT DETECT); PARAINFLUENZA VIRUS 4 (PCR) NOT DETECTED (NOT DETECT); RESPIRATORY SYNCYTIAL V (PCR) NOT DETECTED (NOT DETECT); SARS_COV_2 (PCR) NOT DETECTED (NOT DETECT)
[2020-12-20] MEDS ORDERED: ZOFRAN 4 MG/2 ML IVP PRN (22:23)
[2020-12-20] MEDS ORDERED: TYLENOL PO PRN (22:23)
[2020-12-20] MEDS ORDERED: D5%-NS-KCL 20 MEQ/L IV SOL 1,000 ML IV SCH (22:30)
[2020-12-20 23:15] LABS: PROTHROMBIN TIME 43.2 SEC (9.3-11.0)
[2020-12-21 00:11] VITALS: BMI 23.2
[2020-12-21] MEDS ORDERED: TYLENOL PO PRN (00:39)
[2020-12-21] MEDS ORDERED: MILK OF MAGNESIA PO PRN (00:39)
[2020-12-21] MEDS ORDERED: COLACE PO PRN (00:39)
[2020-12-21] MEDS ORDERED: BENADRYL PO PRN (00:39)
[2020-12-21] MEDS ORDERED: DULCOLAX RC PRN (00:39)
[2020-12-21] MEDS: XANAX PO PRN (01:21)
[2020-12-21] MEDS: NORCO 5-325 PO PRN (01:22)
[2020-12-21] MEDS: NEURONTIN PO SCH ×4 (01:22→20:04)
[2020-12-21] MEDS: ZESTRIL PO SCH ×3 (01:22→20:04)
[2020-12-21] MEDS: NORVASC PO SCH ×2 (01:22→20:57)
[2020-12-21] MEDS: LIPITOR PO SCH ×2 (01:22→20:04)
[2020-12-21 05:31] LABS: BASOPHILS # (AUTO) 0.1 K/uL (0-0.2); BASOPHILS % (AUTO) 0.4 % (0.0-3.0); EOSINOPHILS # (AUTO) 0.3 K/ul (0.0-0.7); EOSINOPHILS % (AUTO) 2.5 % (0.0-7.0); HEMATOCRIT 42.4 % (37.0-47.0); HEMOGLOBIN 13.7 g/dl (12.0-16.0); IMMATURE GRANULOCYTE # (AUTO) 0.1 (0.0-1.0); IMMATURE GRANULOCYTE % (AUTO) 0.4 % (0.0-5.0); LYMPHOCYTES # (AUTO) 0.7 K/uL (0.60-3.4); LYMPHOCYTES % (AUTO) 4.9 (10.0-50.0); MEAN CORPUSCULAR HEMOGLOBIN 30.8 pg (27.0-31.0); MEAN CORPUSCULAR HGB CONC 32.3 (31.8-35.4); MEAN CORPUSCULAR VOLUME 95.3 fl (81.0-99.0); MONOCYTES # (AUTO) 0.5 K/uL (0.4-2.0); MONOCYTES % (AUTO) 3.9 (0-10); NEUTROPHILS # (AUTO) 12.1 K/ul (2.0-6.9); NEUTROPHILS % (AUTO) 87.9 % (42.2-75.2); PLATELET COUNT 129 10^3/uL (140-440); RED BLOOD COUNT 4.45 10^6/ul (4.20-5.40); WHITE BLOOD COUNT 13.74 K/ul (4.6-10.2)
[2020-12-21 05:46] LABS: PROTHROMBIN TIME 33.6 SEC (9.3-11.0)
[2020-12-21 05:53] LABS: BLOOD UREA NITROGEN 17.3 mg/dL (7-17); CALCIUM 9.45 mg/dL (8.4-10.2); CARBON DIOXIDE 28.4 mmol/L (22-30.0); CHLORIDE 99.7 mmol/L (98-107); CREATININE 1.14 mg/dL (0.60-1.30); GLUCOSE 116.5 mg/dL (74-106); POTASSIUM 3.31 mmol/L (3.5-5.1)
[2020-12-21] MEDS: SYNTHROID PO SCH (06:08)
[2020-12-21] MEDS ORDERED: SODIUM CHLORIDE 500 ML IV SCH (08:30)
[2020-12-21] MEDS ORDERED: SODIUM CHLORIDE 1,000 ML IV SCH ×2 (09:12→10:30)
[2020-12-21] MEDS: SYMBICORT 160-4.5 MCG INHALER IH SCH ×2 (09:36→20:04)
[2020-12-21] MEDS: FERROUS SULFATE PO SCH (09:38)
[2020-12-21] MEDS: K-DUR PO SCH ×2 (09:39→16:58)
[2020-12-21] MEDS: LEXAPRO PO SCH (09:39)
[2020-12-21] MEDS: CALCIUM 500 + VIT D 5 MCG (200 IU) TABLET PO SCH ×2 (09:39→20:04)
[2020-12-21] MEDS: MULTIVITAMIN TABLET PO SCH (09:39)
[2020-12-21] MEDS: TRIGLIDE PO SCH (09:39)
[2020-12-21] MEDS: DECADRON IM SCH (09:40)
--- NOTE | 2020-12-21 09:59 | PCM.PROG ---
Attending Provider: ATTENDING PROVIDER: Dr. BIJAN ROWE This patient is seen with Lois Sarah, Nurse Practitioner. DATE OF SERVICE: 12/21/20 SUBJECTIVE: This 85 year old /WHITE F was hospitalized 12/20/20. The patient is resting comfortably. She is alert and oriented this morning. No fever since leaving ER. REVIEW OF SYSTEMS: CONSTITUTIONAL: Weakness. No night sweats. No fatigue, malaise, lethargy. No fever or chills. HEENT: Eyes: No visual changes. No eye pain. No eye discharge. ENT: No runny nose. No epistaxis. No sinus pain. No odynophagia. No congestion. RESPIRATORY: Cough. No hemoptysis. No shortness of breath. CARDIOVASCULAR: No angina symptoms. No CHF symptoms. No atypical chest pain for CAD. No palpitations. No orthopnea.. GASTROINTESTINAL: No abdominal pain. No nausea or vomiting. No diarrhea or constipation. No hematemesis. No hematochezia. GENITOURINARY: No urgency. No frequency. No dysuria. No hematuria. No obstructive symptoms. No discharge. No pain. No significant abnormal bleeding. MUSCULOSKELETAL: No musculoskeletal pain; no joint swelling. NEUROLOGICAL: Awake, alert, oriented to person and place. No headache. No neck pain. No syncope. No seizures. No dizziness. PSYCHIATRIC: Not anxious. No depression. No suicidal thoughts. No homicidal thoughts. SKIN: No rash. No lesions. No wounds. ENDOCRINE: No unexplained weight loss. No weight gain. HEMATOLOGIC/LYMPHATIC: No anemia. No purpura. No petechiae. No prolonged or excessive bleeding. No palpable lymph nodes. PHYSICAL EXAMINATION: GENERAL: The patient is awake, alert and oriented to person and place, lying/sitting in bed in no distress. VITAL SIGNS: Temperature 98.5 F, Pulse 78, Respiratory Rate 18, BP 96/46, Pulse Ox 97% HEENT: Head normocephalic, atraumatic. Eyes: Extraocular muscles are intact. Pupils are equal, round and reactive to light and accommodation. Ears: No lesions. Nose appeared normal. Throat: No exudate or erythema. NECK: Supple. No JVD, no carotid bruit. No lymphadenopathy or thyromegaly. LUNGS: Diminished breath sounds. Clear to auscultation. Percussion note normal. Chest symmetrical. HEART: S1, S2, no S3. No murmurs. No cyanosis or clubbing. No ascites. Pulses: Dorsalis pedis and posterior tibial pulses +1 to +2 both sides. ABDOMEN: Soft. Non-tender. Bowel sounds active. No CVA tenderness. No mass felt. EXTREMITIES: No edema. Full range of motion of all extremities, equal. NEUROLOGIC: No focal deficit. Cranial nerves II through XII are grossly intact. No headache. No double vision. SKIN: Not dry. Intact. Turgor-normal. LYMPHATIC: No palpable lymph nodes/no lymphedema. MUSCULOSKELETAL: Normal joints with no swelling. Muscle tone is normal. LAB REVIEW: 12/21/20 05:06 12/21/20 05:06 12/21/20 05:10: PT 33.6 H D, INR 3.13 12/21/20 05:06: Sodium 138.0, Potassium 3.31 L, Chloride 99.7, Carbon Dioxide 28.4, Anion Gap 13.21, BUN 17.3 H, Creatinine 1.14, Estimated GFR (MDRD) 45.00, BUN/Creatinine Ratio 15.17, Glucose 116.5 H, Calcium 9.45 12/21/20 05:06: WBC 13.74 H, RBC 4.45, Hgb 13.7, Hct 42.4, MCV 95.3, MCH 30.8, MCHC 32.3, RDW Coeff of Nataliya 14.0, Plt Count 129 L, Immature Gran % (Auto) 0.4, Neut % (Auto) 87.9 H, Lymph % (Auto) 4.9 L, [place] % (Auto) 3.9, Eos % (Auto) 2.5, Baso % (Auto) 0.4, Neut # (Auto) 12.1 H, Lymph # (Auto) 0.7, [place] # (Auto) 0.5, Eos # (Auto) 0.3, Baso # (Auto) 0.1, Immature Gran # (Auto) 0.1 12/20/20 20:36: Puncture Site Rrad, Base Excess 2.5, O2 Saturation 81.1 L, ABG pH 7.47 H, ABG pCO2 36.0, ABG pO2 42.0 L*, ABG HCO3 26.2, ABG Total CO2 27.3 H, Micheal Test Pos, Hemoglobin 1.5, Oxyhemoglobin 82.2 L, Carboxyhemoglobin 2.2 H, Total Hemoglobin 16.0, FiO2 % 21.0 12/20/20 19:52: PT 43.2 H, INR 4.02 H* 12/20/20 19:52: Lactic Acid 0.90 12/20/20 19:52: Procalcitonin < 0.05 12/20/20 19:52: Sodium 138.2, Potassium 3.02 L, Chloride 102.2, Carbon Dioxide 26.2, Anion Gap 12.82, BUN 15.1, Creatinine 0.79, Estimated GFR (MDRD) 69.00, BUN/Creatinine Ratio 19.11, Glucose 108.8 H, Calcium 10.27 H, Total Bilirubin 0.88, AST 23.6, ALT 12.4, Alkaline Phosphatase 68.6, Total Protein 6.95, Albumin 4.48, Globulin 2.47, Albumin/Globulin Ratio 1.81 12/20/20 19:52: WBC 14.39 H, RBC 5.06, Hgb 15.4, Hct 47.3 H, MCV 93.5, MCH 30.4, MCHC 32.6, RDW Coeff of Nataliya 14.0, Plt Count 122 L, Immature Gran % (Auto) 0.5, Neut % (Auto) 89.0 H, Lymph % (Auto) 5.8 L, [place] % (Auto) 3.3, Eos % (Auto) 0.9, Baso % (Auto) 0.5, Neut # (Auto) 12.8 H, Lymph # (Auto) 0.8, [place] # (Auto) 0.5, Eos # (Auto) 0.1, Baso # (Auto) 0.1, Immature Gran # (Auto) 0.1 12/20/20 19:25: Adenovirus (PCR) Not detected, B. pertussis DNA (PCR) Not detected, B.parapertussis DNA PCR Not detected, C. pneumoniae DNA (PCR) Not detected, Coronavirus OC43 (PCR) Not detected, Coronavirus HKU1 (PCR) Not detected, Coronavirus 229E (PCR) Not detected, Coronavirus NL63 (PCR) Not detected, Human Metapneumovir PCR Not detected, Influenza Type A (PCR) Not detected, Influenza B (RT-PCR) Not detected, M. pneumoniae (PCR) Not detected, Parainfluenza 1 (PCR) Not detected, Parainfluenza 2 (PCR) Not detected, Parainfluenza 3 (PCR) Not detected, Parainfluenza 4 (PCR) Not detected, RSV (PCR) Not detected, Entero/Rhino (PCR) Not detected, SARS-CoV-2 (PCR) Not detected ASSESSMENT: Please see below. 1. Acute pneumonitis. 2. Dehydration. 3. Hypokalemia. 4. UTI. 5. Acute respiratory failure. PLAN: 1. Decadron 4 mg IM daily. 2. D/C fluids with potassium. 3. Potassium 20 mEq b.i.d. 4. Normal Saline at 50 mL times one bag. 5. UA. 6. Hold Coumadin today. 7. Symbicort 160 mg two puffs b.i.d. 8. Albuterol two puffs t.i.d. CHUY. 9. Hold Norvasc just this a.m. Plan and coordination of the patient's care discussed in the presence of Client Manager Large Law and nurse. CONDITION: Stable SCRIBED BY: SILAS MAN Bread Oven Operator scribed while in presence of service performed by Dr. Rowe/Lois Sarah APRN on 12/21/20 ([id number])
[2020-12-21] MEDS: NYSTOP POWDER TP SCH ×2 (13:41→20:04)
[2020-12-21] MEDS: VENTOLIN HFA (PER PUFF-WITH SPACER) IH SCH ×2 (14:12→20:09)
[2020-12-21 15:46] LABS: BILIRUBIN,URINE Negative (NEGATIVE); CLARITY,URINE Clear (CLEAR); COLOR,URINE Yellow (YELLOW); GLUCOSE, URINE (UA) Negative (NEGATIVE); KETONES,URINE Negative (NEGATIVE); LEUKOCYTE ESTERASE ,URINE Negative (NEGATIVE); NITRITE,URINE Negative (NEGATIVE); PROTEIN,URINE Negative (NEGATIVE); URINE, BLOOD Trace-lysed (NEGATIVE); UROBILINOGEN,URINE 0.2 (0.2)
[2020-12-21 15:51] LABS: BACTERIA,URINE 2+ (NOT PRESENT)
[2020-12-21] MEDS: ROCEPHIN 1 GM/50 ML D5W 1 GM/50 ML BAG IV SCH (20:05)
[2020-12-21] MEDS: ZITHROMAX 500 MG in SODIUM CHLORIDE 250 ML IV SCH (21:33)
[2020-12-22] MEDS: VENTOLIN HFA (PER PUFF-WITH SPACER) IH SCH ×3 (04:51→20:10)
[2020-12-22 05:58] LABS: BASOPHILS % (AUTO) 0.3 % (0.0-3.0); EOSINOPHILS % (AUTO) 0.6 % (0.0-7.0); HEMATOCRIT 36.5 % (37.0-47.0); HEMOGLOBIN 11.8 g/dl (12.0-16.0); IMMATURE GRANULOCYTE % (AUTO) 0.3 % (0.0-5.0); LYMPHOCYTES # (AUTO) 0.7 K/uL (0.60-3.4); LYMPHOCYTES % (AUTO) 10.1 (10.0-50.0); MEAN CORPUSCULAR HEMOGLOBIN 30.2 pg (27.0-31.0); MEAN CORPUSCULAR HGB CONC 32.3 (31.8-35.4); MEAN CORPUSCULAR VOLUME 93.4 fl (81.0-99.0); MONOCYTES # (AUTO) 0.3 K/uL (0.4-2.0); MONOCYTES % (AUTO) 4.6 (0-10); NEUTROPHILS # (AUTO) 5.9 K/ul (2.0-6.9); NEUTROPHILS % (AUTO) 84.1 % (42.2-75.2); PLATELET COUNT 118 10^3/uL (140-440); RED BLOOD COUNT 3.91 10^6/ul (4.20-5.40)
[2020-12-22 06:00] LABS: WHITE BLOOD COUNT 7.03 K/ul (4.6-10.2)
[2020-12-22] MEDS: SYNTHROID PO SCH (06:04)
[2020-12-22 06:08] LABS: BLOOD UREA NITROGEN 21.7 mg/dL (7-17); CALCIUM 9.35 mg/dL (8.4-10.2); CARBON DIOXIDE 24.4 mmol/L (22-30.0); CREATININE 0.93 mg/dL (0.60-1.30); GLUCOSE 120.4 mg/dL (74-106); POTASSIUM 3.92 mmol/L (3.5-5.1); SODIUM 140.9 mmol/L (134.5-145)
[2020-12-22 06:21] LABS: PROTHROMBIN TIME 34.6 SEC (9.3-11.0)
[2020-12-22] MEDS: CALCIUM 500 + VIT D 5 MCG (200 IU) TABLET PO SCH ×2 (08:40→20:58)
[2020-12-22] MEDS: MULTIVITAMIN TABLET PO SCH (08:40)
[2020-12-22] MEDS: ZESTRIL PO SCH ×2 (08:41→20:58)
[2020-12-22] MEDS: K-DUR PO SCH ×2 (08:42→16:45)
[2020-12-22] MEDS: NORVASC PO SCH ×2 (08:42→20:58)
[2020-12-22] MEDS: FERROUS SULFATE PO SCH (08:43)
[2020-12-22] MEDS: LEXAPRO PO SCH (08:44)
[2020-12-22] MEDS: NEURONTIN PO SCH ×3 (08:44→20:58)
[2020-12-22] MEDS: DECADRON IM SCH (08:45)
[2020-12-22] MEDS: NYSTOP POWDER TP SCH ×2 (08:46→21:07)
[2020-12-22] MEDS: SYMBICORT 160-4.5 MCG INHALER IH SCH ×2 (08:46→21:05)
[2020-12-22] MEDS: TRIGLIDE PO SCH (08:53)
[2020-12-22] MEDS: XANAX PO PRN ×2 (11:23→20:58)
--- NOTE | 2020-12-22 11:45 | PCM.PROG ---
Attending Provider: ATTENDING PROVIDER: Dr. BIJAN ROWE This patient is seen with Lois Sarah, Nurse Practitioner. DATE OF SERVICE: 12/22/20 SUBJECTIVE: This 85 year old /WHITE F was hospitalized 12/20/20. The patient is resting comfortably in bed. She had fever yesterday of 100.6, complains of dysuria yet this morning urine culture pending. REVIEW OF SYSTEMS: CONSTITUTIONAL: Weakness. No night sweats. No fatigue, malaise, lethargy. No fever or chills. HEENT: Eyes: No visual changes. No eye pain. No eye discharge. ENT: No runny nose. No epistaxis. No sinus pain. No odynophagia. No congestion. RESPIRATORY: No cough, no congestion. No hemoptysis. No shortness of breath. CARDIOVASCULAR: No angina symptoms. No CHF symptoms. No atypical chest pain for CAD. No palpitations. No orthopnea.. GASTROINTESTINAL: No abdominal pain. No nausea or vomiting. No diarrhea or constipation. No hematemesis. No hematochezia. GENITOURINARY: Dysuria. No urgency. No frequency. No hematuria. No obstructive symptoms. No discharge. No pain. No significant abnormal bleeding. MUSCULOSKELETAL: No musculoskeletal pain; no joint swelling. NEUROLOGICAL: Awake, alert, oriented to time, place and person. No headache. No neck pain. No syncope. No seizures. No dizziness. PSYCHIATRIC: Not anxious. No depression. No suicidal thoughts. No homicidal thoughts. SKIN: No rash. No lesions. No wounds. ENDOCRINE: No unexplained weight loss. No weight gain. HEMATOLOGIC/LYMPHATIC: No anemia. No purpura. No petechiae. No prolonged or excessive bleeding. No palpable lymph nodes. PHYSICAL EXAMINATION: GENERAL: The patient is awake, alert and oriented, lying/sitting in bed in no distress. VITAL SIGNS: Temperature 98.5 F, Pulse 70, Respiratory Rate 18, BP 124/62, Pulse Ox 99% HEENT: Head normocephalic, atraumatic. Eyes: Extraocular muscles are intact. Pupils are equal, round and reactive to light and accommodation. Ears: No lesions. Nose appeared normal. Throat: No exudate or erythema. NECK: Supple. No JVD, no carotid bruit. No lymphadenopathy or thyromegaly. LUNGS: Diminished breath sounds. Clear to auscultation. Percussion note normal. Chest symmetrical. HEART: S1, S2, no S3. No murmurs. No cyanosis or clubbing. No ascites. Pulse s: Dorsalis pedis and posterior tibial pulses +1 to +2 both sides. ABDOMEN: Soft. Non-tender. Bowel sounds active. No CVA tenderness. No mass felt. EXTREMITIES: No edema. Full range of motion of all extremities, equal. NEUROLOGIC: No focal deficit. Cranial nerves II through XII are grossly intact. No headache. No double vision. SKIN: Not dry. Intact. Turgor-normal. LYMPHATIC: No palpable lymph nodes/no lymphedema. MUSCULOSKELETAL: Normal joints with no swelling. Muscle tone is normal. LAB REVIEW: 12/22/20 05:40 12/22/20 05:40 12/22/20 05:40: Sodium 140.9, Potassium 3.92, Chloride 109.0 H, Carbon Dioxide 24.4, Anion Gap 11.42, BUN 21.7 H, Creatinine 0.93, Estimated GFR (MDRD) 57.00, BUN/Creatinine Ratio 23.33, Glucose 120.4 H, Calcium 9.35 12/22/20 05:40: PT 34.6 H, INR 3.22 12/22/20 05:40: WBC 7.03 D, RBC 3.91 L, Hgb 11.8 L, Hct 36.5 L, MCV 93.4, MCH 30.2, MCHC 32.3, RDW Coeff of Nataliya 14.0, Plt Count 118 L, Immature Gran % (Auto) 0.3, Neut % (Auto) 84.1 H, Lymph % (Auto) 10.1, [place] % (Auto) 4.6, Eos % (Auto) 0.6, Baso % (Auto) 0.3, Neut # (Auto) 5.9, Lymph # (Auto) 0.7, [place] # (Auto) 0.3 L, Eos # (Auto) 0.0, Baso # (Auto) 0.0, Immature Gran # (Auto) 0.0 12/21/20 15:38: Urine Color Yellow, Urine Clarity Clear, Urine pH 5.0, Ur Specific [place] 1.020, Urine Protein Negative, Urine Glucose (UA) Negative, Urine Ketones Negative, Urine Blood Trace-lysed, Urine Nitrite Negative, Urine Bilirubin Negative, Urine Urobilinogen 0.2, Ur Leukocyte Esterase Negative, Urine Microscopic WBC 5-10, Ur Squamous Epith Cells 5-10, Urine Bacteria 2+, Hyaline Casts 2-5 ASSESSMENT: Please see below. 1. Bilateral pneumonia. 2. UTI. 3. COPD. 4. Severe PAD. 5. History of CVA. PLAN: 1. Continue IV antibiotics. 2. Continue Rocephin through the weekend. 3. Prednisone 20 mg daily - begin tomorrow. 4. Hold Coumadin today - resume when INR is 2.5. Plan and coordination of the patient's care discussed in the presence of Enterprise Services Manager and nurse. CONDITION: Stable SCRIBED BY: SILAS MAN Instrument Tester scribed while in presence of service performed by Dr. Rowe/Lois Sarah APRN on 12/22/20 ([id number])
--- NOTE | 2020-12-22 12:48 | PN ---
DATE OF SERVICE: 12/21/2020 SUBJECTIVE: The patient was seen and examined with the Nurse Practitioner. The patient has UTI and bronchitis with possible pneumonia Condition has improved. She is feeling better. Worried about her daughter's boyfriend who has brain tumor and does not want any resuscitative efforts. She is DNR. The patient is oriented to time, place and person. TIME SPENT: More than 30 minutes. Plan and coordination of the patient's care discussed in the presence of nurse. ARASH
--- NOTE | 2020-12-22 15:01 | RS.OTINEVL ---
Subjective - Patient information Date of Evaluation: 12/22/20 Date of Arrival on Unit: 12/20/20 Admitted From:: Home Diagnosis: Pneumonia, UTI PRECAUTIONS: Left AKA Usual Living Arrangement: live with daughter Living Arrangement Comments: lives with daughter and has ramp Home Environment: House, Ramp Medical History: Hypertension, CVA/TIA, COPD, Arthritis Medical History Comments:: brain bleed, CAD, DJD, depression, hypothyroid, neuropathy,PAD, CKD, tibial fx LATEX ALLERGY?: No Surgical History Comments:: L AKA Medications: see chart Subjective Information/ Patient Comments:: "I'm not sure I can reach it." - Level of function Prior to this admission, the patient could do the following:: Partially Dependent Ambulation Abilities prior to this admission: Pt requires assistance for ADLS. Pt uses a WC at home. Pt requires Min A for pivot transfer to toilet. Current Level of Function: Partially Dependent Current Equipment Used at Home: w/c, walker, shower chair Pain Assessment - Pain Pain Score: 0 Interventions - Objective Patient Orientation: Person Current Interventions: IV's, Oxygen, Telemetry Observation: Pt is Min to Moderate assistance for sit to stand from EOB with RW. Pt completed x 2 with 2 people. Pt was maximum assistance to put her sock on the right foot. Pt has full AROM of BUE. Pt can scoot in the bed. Pt does need assistance. Interventions - ROM Right Upper Extremity AROM: WFL's Left Upper Extremity AROM: WFL's - Strength Right Upper Extremity Strength: Mild Weakness Left Upper Extremity Strength: Mild Weakness - Sensation Right Upper Extremity Sensation: Intact/Normal Left Upper Extremity Sensation: Intact/Normal Balance - Sitting Balance Static Sitting Balance: Good Dynamic Sitting Balance: Good - Standing Balance Static Standing Balance: Poor Dynamic Standing Balance: Poor ADL Skills - Self Feeding Self Feeding: Independent - Grooming Grooming: Min Assist Grooming Set-up: Sitting - Dressing Dressing UE: Independent, Set Up Only Dressing LE: Max Assist, 1 person assist - Toilet Management Toilet Hygiene: CGA Toilet Clothing Management: Max Assist Functional Mobility - Bed Mobility Rolling R/L: Independent Scooting: Min Assist Supine to Sit: Min Assist Sit to Supine: Min Assist - Transfers Sit to Stand: Min Assist - Ambulation Weight Bearing Status: FWB Assistive Device Used: Rolling Walker Orthotic/Prosthetic Device: Yes (Pt has a leg at home. ) Assistance needed with Ambulation: 2 person assist - Safety Awareness Safety Awareness: Fair SIMRAN INDEX SCORE: . Additional Treatment Performed - Time with patient Length of Evaluation: 20 Total treatment time: 20 Activities Do you enjoy playing games?: Yes Would you be interested in leaving your room for activities?: Yes Would you enjoy group activities?: Yes Do you have difficulty with your vision?: Yes (Wears glasses all of the time.) Patient Interests:: Watching Television, Visiting/Socializing Patient Education Patient Education: Education of diagnosis, Home Exercise Program, Home Safety, Education of Plan of Care Teaching Recipient: Patient Teaching Methods: Teach Back Method Used, Discussion, Demonstration Assessment Problem List:: Decreased level of function, Decreased safety/Risk of falls, Weakness Rehab Potential: Good Further Therapy Indicated?: Yes Evaluation Complexity: HISTORY: Medium, EXAM OF BODY SYSTEMS: Medium, CLINICAL DECISION MAKING: Medium Patient's Goal(s): Pt wants to get stronger so she can return home and do more for herself. Short Term Goals - Goals GOAL 1: Pt to be Min A with sink level ADLS in WC. Goal to be met by: 12/29/20 GOAL 2: Pt to increase BUE strength to 4/5. Goal to be met by: 12/29/20 GOAL 3: Pt to increase her LB dressing to Min A. Goal to be met by: 12/29/20 GOAL 4: Pt to complete toilet transfers Min A from WC with RW. Goal to be met by: 01/02/21 Children Counselor Goals GOAL 1: Pt to increase toilet transfers from WC to [facility] with RW. Goal to be met by: 01/02/21 GOAL 2: Pt to increase BUE strength to 4+/5. Goal to be met by: 01/02/21 GOAL 3: Pt to be Independent with dressing. Goal to be met by: 01/02/21 Plan Plan of Care: Therapeutic EX, Therapeutic Activity, Self-Care/Home Management Frequency of Treatment: 1-2 X day, as tolerated Duration of Treatment: 2 Weeks Anticipated Discharge Destination: Home Treatment Diagnosis (ICD 10 Codes): Weakness R53.1, Z74.1 Need for assistance with personal care. Has the Physician been added for Co-signature?: Yes
--- NOTE | 2020-12-22 15:21 | RS.PTINEVL ---
Subjective - Patient information Date of Evaluation: 12/22/20 Date of Arrival on Unit: 12/20/20 Admitted From:: Home Diagnosis: UTI, pneumonia Usual Living Arrangement: live with daughter Home Environment: House, Ramp Medical History: Hypertension, CVA/TIA, COPD, Diabetes, Arthritis, Vascular Disease Medical History Comments:: neuropathy, DVT, AAA, depression, chronic back pain, DJD, subdural hematoma, severe peripheral art disease, chronic kidney disease, depression, anxiety. Surgical History Comments:: hip fracture repair, CEA, fem pop bypass, L BKA Medications: see chart Subjective Information/ Patient Comments:: pt states she would like to stand at bedside with a walker. She is worried because she is not wearing a brief and is afraid to make a mess. Reassured pt that nursing wanted her skin to have air and that we would clean up. - Level of function Prior to this admission, the patient could do the following:: Partially Dependent Ambulation Current Level of Function: Partially Dependent Current Equipment Used at Home: w/c, walker, shower chair Interventions - Objective Patient Orientation: Person, Place, Situation Current Interventions: IV's, Oxygen, Telemetry Observation: pt has open area on residual limb Range of Motion - ROM Right Upper Extremity AROM: WFL's Left Upper Extremity AROM: WFL's Right Lower Extremity AROM: WFL's Left Lower Extremity AROM: WFL's (residual limb) Muscle Strength - Muscle Strength Right Upper Extremity Strength: Mild Weakness (grossly 4/5) Left Upper Extremity Strength: Mild Weakness (grossly 4/5) Right Lower Extremity Strength: Mild Weakness (hip flex 4-/5, knee flex/ext 4/5, ankle DF/PF 4/5) Left Lower Extremity Strength: Mild Weakness (hip flex 3+/5) Sensation - Sensation Right Upper Extremity Sensation: Intact/Normal Left Upper Extremity Sensation: Intact/Normal Right Lower Extremity Sensation: Impaired (due to neuropathy) Left Lower Extremity Sensation: Impaired Palpation Palpation Findings: Tenderness (L residual limb) Balance - Sitting Balance and Reactions Static Sitting Balance: Good Dynamic Sitting Balance: Fair - Standing Balance and Reactions Static Standing Balance: Poor Standing Equilibrium Reactions: Delayed Left, Delayed Right Functional Mobility - Bed Mobility Rolling R/L: Min Assist Scooting: Mod Assist, Max Assist, 2 person assist Supine to Sit: Min Assist Sit to Supine: Min Assist - Transfers Sit to Stand: Min Assist, Mod Assist, 2 person assist Stand to Sit: Min Assist, Mod Assist, 2 person assist Comments:: pt stood x 2 with min to mod x 2 and stood with walker with min x 2 to maintain standing balance. pt did not wish to transfer to chair due to being very tired. - Safety Awareness Safety Awareness: Fair SIMRAN INDEX SCORE: n/a Treatment time - Time with patient Length of Evaluation: 21 Total treatment time: 32 Patient Education - Education Patient Education: Activity Modification, Education of Plan of Care Teaching Recipient: Patient Teaching Methods: Discussion (discussion regarding POC.) Assessment - Assessment Problem List:: Decreased level of function, Requires training/education, Decreased safety/Risk of falls, Weakness, Cognitive status limits abilities Rehab Potential: Fair Further Therapy Indicated?: Yes Candidate for Swing Bed for Therapy Services?: Feel pt would not be candidate for swing bed due to prior level of function. Evaluation Complexity: HISTORY: Medium, EXAM OF BODY SYSTEMS: Medium, CLINICAL PRESENTATION: Medium, CLINICAL DECISION MAKING: Medium Patient's Goal(s): get my RLE stronger Short Term Goals GOAL #1: pt demonstrate rolling , bridging, scooting independently Goal to be met by: 12/25/20 GOAL #2: Transfer sup to/from sit CGA Goal to be met by: 12/25/20 GOAL #3: sit to/from stand min x 2 Goal to be met by: 12/25/20 GOAL #4: Transfer bed to/from chair min x 2 Goal to be met by: 12/25/20 GOAL #5: dyn sitting balance fair + Goal to be met by: 12/25/20 GOAL #6: Improve strength RLE 4-/5 to 4/5 Goal to be met by: 12/25/20 Fdc Goals GOAL #1: pt transfers sup to/from sit independent, sit to/from stand min x 1 Goal to be met by: 12/27/20 GOAL #2: pt transfer bed to/from chair w rwx min x 1 Goal to be met by: 12/27/20 GOAL #3: pt able to stand with rwx to allow for hygeine with CGA Goal to be met by: 12/27/20 Plan Plan of Care: Therapeutic EX, Therapeutic Activity Frequency of Treatment: 1-2 X day, as tolerated Duration of Treatment: 1 Week Anticipated Discharge Destination: Home Treatment Diagnosis (ICD 10 Codes): balance impaired R26.81. weakness M62.81 Has the Physician been added for Co-signature?: Yes
[2020-12-22] MEDS: LIPITOR PO SCH (20:58)
[2020-12-22] MEDS: ZITHROMAX 500 MG in SODIUM CHLORIDE 250 ML IV SCH (21:10)
[2020-12-22] MEDS: NORCO 5-325 PO PRN (22:02)
[2020-12-22] MEDS: ROCEPHIN 1 GM/50 ML D5W 1 GM/50 ML BAG IV SCH (23:34)
[2020-12-23] MEDS ORDERED: K-DUR PO SCH ×2 (00:39→09:00)
[2020-12-23] MEDS ORDERED: LASIX TAB PO SCH ×2 (00:39→06:30)
[2020-12-23 04:07] LABS: BASOPHILS % (AUTO) 0.2 % (0.0-3.0); EOSINOPHILS % (AUTO) 0.6 % (0.0-7.0); HEMATOCRIT 38.4 % (37.0-47.0); HEMOGLOBIN 12.2 g/dl (12.0-16.0); IMMATURE GRANULOCYTE % (AUTO) 0.4 % (0.0-5.0); LYMPHOCYTES # (AUTO) 0.5 K/uL (0.60-3.4); LYMPHOCYTES % (AUTO) 10.1 (10.0-50.0); MEAN CORPUSCULAR HEMOGLOBIN 30.4 pg (27.0-31.0); MEAN CORPUSCULAR HGB CONC 31.8 (31.8-35.4); MEAN CORPUSCULAR VOLUME 95.8 fl (81.0-99.0); MONOCYTES # (AUTO) 0.4 K/uL (0.4-2.0); NEUTROPHILS # (AUTO) 4.2 K/ul (2.0-6.9); NEUTROPHILS % (AUTO) 80.7 % (42.2-75.2); PLATELET COUNT 137 10^3/uL (140-440); RDW COEFFICIENT OF VARIATION 14.2 % (11.6-14.8); RED BLOOD COUNT 4.01 10^6/ul (4.20-5.40); WHITE BLOOD COUNT 5.23 K/ul (4.6-10.2)
[2020-12-23 04:23] LABS: ALANINE AMINOTRANSFERASE 101.8 U/L (0-35); ALBUMIN 3.63 g/dL (3.5-5.0); ALKALINE PHOSPHATASE 49.1 U/L (53-141); ASPARTATE AMINO TRANSFERASE 87.6 U/L (14-36); BILIRUBIN,TOTAL 0.41 mg/dL (0.2-1.3); BLOOD UREA NITROGEN 19.5 mg/dL (7-17); CALCIUM 9.33 mg/dL (8.4-10.2); CHLORIDE 109.5 mmol/L (98-107); CREATININE 0.71 mg/dL (0.60-1.30); GLUCOSE 105.9 mg/dL (74-106); POTASSIUM 4.79 mmol/L (3.5-5.1); SODIUM 141.5 mmol/L (134.5-145); TOTAL PROTEIN 5.82 g/dL (6.3-8.2)
[2020-12-23 04:48] LABS: PROTHROMBIN TIME 23.8 SEC (9.3-11.0)
[2020-12-23] MEDS: VENTOLIN HFA (PER PUFF-WITH SPACER) IH SCH ×3 (05:58→20:35)
[2020-12-23] MEDS: SYNTHROID PO SCH (06:05)
[2020-12-23] MEDS ORDERED: LASIX TAB PO PRN ×2 (08:00)
[2020-12-23] MEDS: NORVASC PO SCH ×2 (09:46→20:53)
[2020-12-23] MEDS: XANAX PO PRN ×3 (09:46→20:53)
[2020-12-23] MEDS: MULTIVITAMIN TABLET PO SCH (09:46)
[2020-12-23] MEDS: NEURONTIN PO SCH ×3 (09:46→20:53)
[2020-12-23] MEDS: CALCIUM 500 + VIT D 5 MCG (200 IU) TABLET PO SCH ×2 (09:46→20:51)
[2020-12-23] MEDS: TRIGLIDE PO SCH (09:46)
[2020-12-23] MEDS: ZESTRIL PO SCH ×2 (09:46→20:52)
[2020-12-23] MEDS: K-DUR PO SCH ×2 (09:47→18:00)
[2020-12-23] MEDS: LEXAPRO PO SCH (09:47)
[2020-12-23] MEDS: PREDNISONE PO SCH (09:47)
[2020-12-23] MEDS: FERROUS SULFATE PO SCH (09:47)
[2020-12-23] MEDS: NYSTOP POWDER TP SCH ×2 (09:48→20:59)
[2020-12-23] MEDS: SYMBICORT 160-4.5 MCG INHALER IH SCH ×2 (09:49→20:59)
[2020-12-23] MEDS: NORCO 5-325 PO PRN ×2 (14:47→20:52)
[2020-12-23] MEDS: COUMADIN PO SCH (18:38)
[2020-12-23] MEDS: LIPITOR PO SCH (20:51)
[2020-12-23] MEDS: ROCEPHIN 1 GM/50 ML D5W 1 GM/50 ML BAG IV SCH (20:54)
[2020-12-24] MEDS: SYNTHROID PO SCH (05:38)
[2020-12-24 06:18] LABS: BASOPHILS % (AUTO) 0.5 % (0.0-3.0); HEMATOCRIT 41.3 % (37.0-47.0); HEMOGLOBIN 12.8 g/dl (12.0-16.0); LYMPHOCYTES % (AUTO) 24.7 (10.0-50.0); MEAN CORPUSCULAR HEMOGLOBIN 30.2 pg (27.0-31.0); MEAN CORPUSCULAR VOLUME 97.4 fl (81.0-99.0); MONOCYTES # (AUTO) 0.5 K/uL (0.4-2.0); MONOCYTES % (AUTO) 11.6 (0-10); NEUTROPHILS # (AUTO) 2.4 K/ul (2.0-6.9); NEUTROPHILS % (AUTO) 61.2 % (42.2-75.2); PLATELET COUNT 138 10^3/uL (140-440); RDW COEFFICIENT OF VARIATION 14.3 % (11.6-14.8); RED BLOOD COUNT 4.24 10^6/ul (4.20-5.40); WHITE BLOOD COUNT 3.96 K/ul (4.6-10.2)
[2020-12-24] MEDS: VENTOLIN HFA (PER PUFF-WITH SPACER) IH SCH ×3 (06:21→20:35)
[2020-12-24 06:33] LABS: ALANINE AMINOTRANSFERASE 95.7 U/L (0-35); ALBUMIN 3.83 g/dL (3.5-5.0); ALKALINE PHOSPHATASE 65.8 U/L (53-141); ASPARTATE AMINO TRANSFERASE 57.8 U/L (14-36); BILIRUBIN,TOTAL 0.26 mg/dL (0.2-1.3); BLOOD UREA NITROGEN 21.9 mg/dL (7-17); CALCIUM 10.59 mg/dL (8.4-10.2); CARBON DIOXIDE 26.7 mmol/L (22-30.0); CHLORIDE 106.6 mmol/L (98-107); CREATININE 0.89 mg/dL (0.60-1.30); GLUCOSE 103.9 mg/dL (74-106); POTASSIUM 4.35 mmol/L (3.5-5.1); SODIUM 139.6 mmol/L (134.5-145); TOTAL PROTEIN 6.08 g/dL (6.3-8.2)
[2020-12-24 06:41] LABS: PROTHROMBIN TIME 18.3 SEC (9.3-11.0)
[2020-12-24] MEDS: LEXAPRO PO SCH (08:43)
[2020-12-24] MEDS: FERROUS SULFATE PO SCH (08:44)
[2020-12-24] MEDS: NEURONTIN PO SCH ×3 (08:44→20:59)
[2020-12-24] MEDS: MULTIVITAMIN TABLET PO SCH (08:44)
[2020-12-24] MEDS: NORVASC PO SCH ×2 (08:44→20:58)
[2020-12-24] MEDS: PREDNISONE PO SCH (08:44)
[2020-12-24] MEDS: K-DUR PO SCH ×2 (08:44→18:07)
[2020-12-24] MEDS: TRIGLIDE PO SCH (08:44)
[2020-12-24] MEDS: ZESTRIL PO SCH ×2 (08:45→20:59)
[2020-12-24] MEDS: COUMADIN PO SCH (08:45)
[2020-12-24] MEDS: SYMBICORT 160-4.5 MCG INHALER IH SCH ×2 (08:45→21:06)
[2020-12-24] MEDS: CALCIUM 500 + VIT D 5 MCG (200 IU) TABLET PO SCH ×2 (08:45→20:59)
[2020-12-24] MEDS: NYSTOP POWDER TP SCH ×2 (08:50→21:05)
[2020-12-24] MEDS: NORCO 5-325 PO PRN ×2 (15:42→21:19)
[2020-12-24] MEDS: XANAX PO PRN ×2 (15:42→21:01)
[2020-12-24] MEDS: LIPITOR PO SCH (20:58)
[2020-12-24] MEDS: ROCEPHIN 1 GM/50 ML D5W 1 GM/50 ML BAG IV SCH (21:05)
[2020-12-25 04:23] LABS: BASOPHILS % (AUTO) 0.6 % (0.0-3.0); EOSINOPHILS # (AUTO) 0.2 K/ul (0.0-0.7); EOSINOPHILS % (AUTO) 3.8 % (0.0-7.0); HEMATOCRIT 39.9 % (37.0-47.0); HEMOGLOBIN 12.3 g/dl (12.0-16.0); IMMATURE GRANULOCYTE # (AUTO) 0.1 (0.0-1.0); IMMATURE GRANULOCYTE % (AUTO) 1.9 % (0.0-5.0); LYMPHOCYTES # (AUTO) 1.1 K/uL (0.60-3.4); LYMPHOCYTES % (AUTO) 22.9 (10.0-50.0); MEAN CORPUSCULAR HEMOGLOBIN 29.9 pg (27.0-31.0); MEAN CORPUSCULAR HGB CONC 30.8 (31.8-35.4); MEAN CORPUSCULAR VOLUME 97.1 fl (81.0-99.0); MONOCYTES # (AUTO) 0.8 K/uL (0.4-2.0); MONOCYTES % (AUTO) 16.3 (0-10); NEUTROPHILS # (AUTO) 2.6 K/ul (2.0-6.9); NEUTROPHILS % (AUTO) 54.5 % (42.2-75.2); PLATELET COUNT 151 10^3/uL (140-440); RDW COEFFICIENT OF VARIATION 14.4 % (11.6-14.8); RED BLOOD COUNT 4.11 10^6/ul (4.20-5.40)
[2020-12-25 04:35] LABS: PROTHROMBIN TIME 30.3 SEC (9.3-11.0)
[2020-12-25 04:38] LABS: ALANINE AMINOTRANSFERASE 86.3 U/L (0-35); ALBUMIN 3.56 g/dL (3.5-5.0); ALKALINE PHOSPHATASE 60.1 U/L (53-141); ASPARTATE AMINO TRANSFERASE 35.1 U/L (14-36); BILIRUBIN,TOTAL 0.23 mg/dL (0.2-1.3); CALCIUM 10.4 mg/dL (8.4-10.2); CARBON DIOXIDE 30.3 mmol/L (22-30.0); CHLORIDE 102.7 mmol/L (98-107); CREATININE 0.98 mg/dL (0.60-1.30); POTASSIUM 4.95 mmol/L (3.5-5.1); SODIUM 137.6 mmol/L (134.5-145); TOTAL PROTEIN 5.81 g/dL (6.3-8.2)
[2020-12-25] MEDS: VENTOLIN HFA (PER PUFF-WITH SPACER) IH SCH ×3 (04:55→20:05)
[2020-12-25] MEDS: SYNTHROID PO SCH (06:13)
[2020-12-25] MEDS: NORCO 5-325 PO PRN (06:13)
[2020-12-25] MEDS: CALCIUM 500 + VIT D 5 MCG (200 IU) TABLET PO SCH ×2 (09:22→20:50)
[2020-12-25] MEDS: NORVASC PO SCH ×2 (09:23→20:51)
[2020-12-25] MEDS: MULTIVITAMIN TABLET PO SCH (09:23)
[2020-12-25] MEDS: ZESTRIL PO SCH ×2 (09:23→20:51)
[2020-12-25] MEDS: LEXAPRO PO SCH (09:23)
[2020-12-25] MEDS: PREDNISONE PO SCH (09:23)
[2020-12-25] MEDS: TRIGLIDE PO SCH (09:23)
[2020-12-25] MEDS: NEURONTIN PO SCH ×3 (09:23→20:52)
[2020-12-25] MEDS: FERROUS SULFATE PO SCH (09:23)
[2020-12-25] MEDS: K-DUR PO SCH ×2 (09:23→16:02)
[2020-12-25] MEDS: NYSTOP POWDER TP SCH ×2 (09:24→21:12)
[2020-12-25] MEDS: SYMBICORT 160-4.5 MCG INHALER IH SCH ×2 (09:24→21:12)
--- NOTE | 2020-12-25 10:05 | PCM.PROG ---
Attending Provider: ATTENDING PROVIDER: Dr. BIJAN ROWE DATE OF SERVICE: 12/25/20 SUBJECTIVE: This 85 year old /WHITE F was hospitalized 12/20/20 with pneumonia and UTI. The patient's condition has improved. REVIEW OF SYSTEMS: CONSTITUTIONAL: No night sweats. No fatigue, malaise, lethargy. No fever or chills. HEENT: Eyes: No visual changes. No eye pain. No eye discharge. ENT: No runny nose. No epistaxis. No sinus pain. No odynophagia. No congestion. RESPIRATORY: No cough, no congestion. No hemoptysis. No shortness of breath. CARDIOVASCULAR: No angina symptoms. No CHF symptoms. No atypical chest pain for CAD. No palpitations. No orthopnea.. GASTROINTESTINAL: No abdominal pain. No nausea or vomiting. No diarrhea or constipation. No hematemesis. No hematochezia. GENITOURINARY: No urgency. No frequency. No dysuria. No hematuria. No obstructive symptoms. No discharge. No pain. No significant abnormal bleeding. MUSCULOSKELETAL: No musculoskeletal pain; no joint swelling. NEUROLOGICAL: Awake, alert, oriented to time, place and person. No headache. No neck pain. No syncope. No seizures. No dizziness. PSYCHIATRIC: Not anxious. No depression. No suicidal thoughts. No homicidal thoughts. SKIN: No rash. No lesions. No wounds. ENDOCRINE: No unexplained weight loss. No weight gain. HEMATOLOGIC/LYMPHATIC: No anemia. No purpura. No petechiae. No prolonged or excessive bleeding. No palpable lymph nodes. PHYSICAL EXAMINATION: GENERAL: The patient is awake, alert and oriented, lying in bed in no distress. VITAL SIGNS: Temperature 97.0 F, Pulse 51, Respiratory Rate 18, BP 118/64, Pulse Ox 97% HEENT: Head normocephalic, atraumatic. Eyes: Extraocular muscles are intact. Pupils are equal, round and reactive to light and accommodation. Ears: No lesions. Nose appeared normal. Throat: No exudate or erythema. NECK: Supple. No JVD, no carotid bruit. No lymphadenopathy or thyromegaly. LUNGS: Clear to auscultation. Percussion note normal. Chest symmetrical. HEART: S1, S2, no S3. No murmurs. No cyanosis or clubbing. No ascites. Pulses: Dorsalis pedis and posterior tibial pulses +1 to +2 both sides. ABDOMEN: Soft. Non-tender. Bowel sounds active. No CVA tenderness. No mass felt. EXTREMITIES: No edema. Full range of motion of all extremities, equal. Above knee amputation. NEUROLOGIC: No focal deficit. Cranial nerves II through XII are grossly intact. No headache, no double vision or headache. SKIN: Warm and dry. Intact. Turgor-normal. LYMPHATIC: No palpable lymph nodes/no lymphedema. MUSCULOSKELETAL: Normal joints with no swelling. Muscle tone is normal. LAB REVIEW: 12/25/20 04:15 12/25/20 04:15 12/25/20 04:15: PT 30.3 H D, INR 2.83 12/25/20 04:15: WBC 4.80, RBC 4.11 L, Hgb 12.3, Hct 39.9, MCV 97.1, MCH 29.9, MCHC 30.8 L, RDW Coeff of Nataliya 14.4, Plt Count 151, Immature Gran % (Auto) 1.9, Neut % (Auto) 54.5, Lymph % (Auto) 22.9, [place] % (Auto) 16.3 H, Eos % (Auto) 3.8, Baso % (Auto) 0.6, Neut # (Auto) 2.6, Lymph # (Auto) 1.1, [place] # (Auto) 0.8, Eos # (Auto) 0.2, Baso # (Auto) 0.0, Immature Gran # (Auto) 0.1 12/25/20 04:15: Sodium 137.6, Potassium 4.95, Chloride 102.7, Carbon Dioxide 30.3 H, Anion Gap 9.55, BUN 24.0 H, Creatinine 0.98, Estimated GFR (MDRD) 54.00, BUN/Creatinine Ratio 24.48, Glucose 86.0, Calcium 10.40 H, Total Bilirubin 0.23, AST 35.1, ALT 86.3 H, Alkaline Phosphatase 60.1, Total Protein 5.81 L, Albumin 3.56, Globulin 2.25, Albumin/Globulin Ratio 1.58 ASSESSMENT: Please see below. 1. Pneumonia 2. UTI, resolved PLAN: 1. INR is acceptable 2. The patient is on Rocephin 3. Cardiovascular status is stable Plan and coordination of the patient's care discussed in the presence of Scaffold Erector and nurse. SCRIBED BY: FRANK PEOPLES Rhythmic Gymnastics Coach scribed while in presence of service performed by Dr. BIJAN ROWE on 12/25/20 (0800)
--- NOTE | 2020-12-25 10:44 | PN ---
DATE OF SERVICE: 12/22/2020 SUBJECTIVE: The patient was seen and examined with Nurse Practitioner. The patient is talking more. Seems to be more lucid mentally. She is COVID negative. We will use Prednisone 20mg daily. Respiratory status is stable. TIME SPENT: More than 30 minutes. Plan and coordination of the patient's care discussed in the presence of nurse. ARASH
[2020-12-25] MEDS: XANAX PO PRN ×2 (16:01→20:59)
[2020-12-25] MEDS ORDERED: COUMADIN PO SCH (17:00)
[2020-12-25] MEDS: LIPITOR PO SCH (20:51)
[2020-12-25] MEDS: OMNICEF PO SCH (20:52)
[2020-12-26 04:58] LABS: BASOPHILS % (AUTO) 0.6 % (0.0-3.0); EOSINOPHILS # (AUTO) 0.1 K/ul (0.0-0.7); EOSINOPHILS % (AUTO) 0.8 % (0.0-7.0); HEMATOCRIT 43.4 % (37.0-47.0); HEMOGLOBIN 13.6 g/dl (12.0-16.0); IMMATURE GRANULOCYTE # (AUTO) 0.2 (0.0-1.0); IMMATURE GRANULOCYTE % (AUTO) 2.3 % (0.0-5.0); LYMPHOCYTES # (AUTO) 1.3 K/uL (0.60-3.4); LYMPHOCYTES % (AUTO) 20.1 (10.0-50.0); MEAN CORPUSCULAR HEMOGLOBIN 29.9 pg (27.0-31.0); MEAN CORPUSCULAR HGB CONC 31.3 (31.8-35.4); MEAN CORPUSCULAR VOLUME 95.4 fl (81.0-99.0); MONOCYTES # (AUTO) 0.6 K/uL (0.4-2.0); MONOCYTES % (AUTO) 9.4 (0-10); NEUTROPHILS # (AUTO) 4.4 K/ul (2.0-6.9); NEUTROPHILS % (AUTO) 66.8 % (42.2-75.2); PLATELET COUNT 163 10^3/uL (140-440); RDW COEFFICIENT OF VARIATION 14.3 % (11.6-14.8); RED BLOOD COUNT 4.55 10^6/ul (4.20-5.40); WHITE BLOOD COUNT 6.58 K/ul (4.6-10.2)
[2020-12-26] MEDS: VENTOLIN HFA (PER PUFF-WITH SPACER) IH SCH ×2 (05:15→14:11)
[2020-12-26 05:18] LABS: PROTHROMBIN TIME 19.1 SEC (9.3-11.0)
[2020-12-26 05:19] LABS: ALANINE AMINOTRANSFERASE 67.1 U/L (0-35); ALBUMIN 3.83 g/dL (3.5-5.0); ALKALINE PHOSPHATASE 68.3 U/L (53-141); ASPARTATE AMINO TRANSFERASE 25.7 U/L (14-36); BILIRUBIN,TOTAL 0.47 mg/dL (0.2-1.3); BLOOD UREA NITROGEN 28.5 mg/dL (7-17); CALCIUM 10.88 mg/dL (8.4-10.2); CARBON DIOXIDE 30.3 mmol/L (22-30.0); CHLORIDE 102.7 mmol/L (98-107); CREATININE 0.79 mg/dL (0.60-1.30); GLUCOSE 104.5 mg/dL (74-106); POTASSIUM 5.14 mmol/L (3.5-5.1); SODIUM 137.4 mmol/L (134.5-145); TOTAL PROTEIN 6.2 g/dL (6.3-8.2)
[2020-12-26] MEDS: SYNTHROID PO SCH (05:38)
[2020-12-26 05:48] VITALS: BP 103/48; TEMP 97.4
[2020-12-26] MEDS ORDERED: XANAX PO PRN (08:24)
[2020-12-26] MEDS: CALCIUM 500 + VIT D 5 MCG (200 IU) TABLET PO SCH (09:26)
[2020-12-26] MEDS: PREDNISONE PO SCH (09:26)
[2020-12-26] MEDS: OMNICEF PO SCH (09:27)
[2020-12-26] MEDS: TRIGLIDE PO SCH (09:27)
[2020-12-26] MEDS: NEURONTIN PO SCH (09:27)
[2020-12-26] MEDS: ZESTRIL PO SCH (09:27)
[2020-12-26] MEDS: LEXAPRO PO SCH (09:27)
[2020-12-26] MEDS: MULTIVITAMIN TABLET PO SCH (09:28)
[2020-12-26] MEDS: K-DUR PO SCH (09:28)
[2020-12-26] MEDS: FERROUS SULFATE PO SCH (09:28)
[2020-12-26] MEDS: SYMBICORT 160-4.5 MCG INHALER IH SCH (09:28)
[2020-12-26] MEDS: NORVASC PO SCH (09:28)
[2020-12-26] MEDS: NYSTOP POWDER TP SCH (09:29)
[2020-12-26 09:44] LABS: ABG O2 HGB 95.2 % (95-100); BEecf 4.1 (-2.0-3.0); COHb 2.3 (0.5-1.5); HCO3 27.3 (21-28); MetHb 1.1 (0-1.5); TCO2 28.4 (19-24); sO2 98.3 % (94-98); tHb 15.4 g/dl (11.7-17.4)
--- NOTE | 2020-12-26 10:42 | PCM.PROG ---
Attending Provider: ATTENDING PROVIDER: Dr. BIJAN ROWE DATE OF SERVICE: 12/26/20 SUBJECTIVE: This 85 year old /WHITE F was hospitalized 12/20/20 with pneumonia and UTI. The patient's condition has improved with antibiotics, steroids and inhalers. She is a lot better. She is oriented to time, place and person. Oxygen saturation on 2 liters is 98%. No evidence of CHF or CAD. REVIEW OF SYSTEMS: CONSTITUTIONAL: No night sweats. No fatigue, malaise, lethargy. No fever or chills. HEENT: Eyes: No visual changes. No eye pain. No eye discharge. ENT: No runny nose. No epistaxis. No sinus pain. No odynophagia. No congestion. RESPIRATORY: No cough, no congestion. No hemoptysis. No shortness of breath. CARDIOVASCULAR: No angina symptoms. No CHF symptoms. No atypical chest pain for CAD. No palpitations. No orthopnea.. GASTROINTESTINAL: No abdominal pain. No nausea or vomiting. No diarrhea or constipation. No hematemesis. No hematochezia. GENITOURINARY: No urgency. No frequency. No dysuria. No hematuria. No obstructive symptoms. No discharge. No pain. No significant abnormal bleeding. MUSCULOSKELETAL: No musculoskeletal pain; no joint swelling. NEUROLOGICAL: Awake, alert, oriented to time, place and person. No headache. No neck pain. No syncope. No seizures. No dizziness. PSYCHIATRIC: Not anxious. No depression. No suicidal thoughts. No homicidal thoughts. SKIN: No rash. No lesions. No wounds. ENDOCRINE: No unexplained weight loss. No weight gain. HEMATOLOGIC/LYMPHATIC: No anemia. No purpura. No petechiae. No prolonged or excessive bleeding. No palpable lymph nodes. PHYSICAL EXAMINATION: GENERAL: The patient is awake, alert and oriented, lying in bed in no distress. VITAL SIGNS: Temperature 97.4 F, Pulse 50, Respiratory Rate 16, BP 103/48, Pulse Ox 98% HEENT: Head normocephalic, atraumatic. Eyes: Extraocular muscles are intact. Pupils are equal, round and reactive to light and accommodation. Ears: No lesions. Nose appeared normal. Throat: No exudate or erythema. NECK: Supple. No JVD, no carotid bruit. No lymphadenopathy or thyromegaly. LUNGS: Clear to auscultation. Percussion note normal. Chest symmetrical. HEART: S1, S2, no S3. No murmurs. No cyanosis or clubbing. No ascites. Pulses: Dorsalis pedis and posterior tibial pulses +1 to +2 both sides. ABDOMEN: Soft. Non-tender. Bowel sounds active. No CVA tenderness. No mass felt. EXTREMITIES: No edema. Full range of motion of all extremities, equal. Above knee amputation. NEUROLOGIC: No focal deficit. Cranial nerves II through XII are grossly intact. No headache, no double vision or headache. SKIN: Warm and dry. Intact. Turgor-normal. LYMPHATIC: No palpable lymph nodes/no lymphedema. MUSCULOSKELETAL: Normal joints with no swelling. Muscle tone is normal. LAB REVIEW: 12/26/20 04:45 12/26/20 04:45 12/26/20 04:45: PT 19.1 H D, INR 1.79 12/26/20 04:45: WBC 6.58, RBC 4.55, Hgb 13.6, Hct 43.4, MCV 95.4, MCH 29.9, MCHC 31.3 L, RDW Coeff of Nataliya 14.3, Plt Count 163, Immature Gran % (Auto) 2.3, Neut % (Auto) 66.8, Lymph % (Auto) 20.1, [place] % (Auto) 9.4, Eos % (Auto) 0.8, Baso % (Auto) 0.6, Neut # (Auto) 4.4, Lymph # (Auto) 1.3, [place] # (Auto) 0.6, Eos # (Auto) 0.1, Baso # (Auto) 0.0, Immature Gran # (Auto) 0.2 12/26/20 04:45: Sodium 137.4, Potassium 5.14 H, Chloride 102.7, Carbon Dioxide 30.3 H, Anion Gap 9.54, BUN 28.5 H, Creatinine 0.79, Estimated GFR (MDRD) 69.00, BUN/Creatinine Ratio 36.07, Glucose 104.5, Calcium 10.88 H, Total Bilirubin 0.47, AST 25.7, ALT 67.1 H, Alkaline Phosphatase 68.3, Total Protein 6.20 L, Albumin 3.83, Globulin 2.37, Albumin/Globulin Ratio 1.61 ASSESSMENT: Please see below. 1. Pneumonia 2. UTI, resolved PLAN: 1. Discharge today 2. She will be discharged with Omnicef and Prednisone Plan and coordination of the patient's care discussed in the presence of Maintenance Tech and nurse. SCRIBED BY: FRANK PEOPLES Electric Sign Wirer scribed while in presence of service performed by Dr. BIJAN ROWE on 12/26/20 ([id number])
--- NOTE | 2020-12-26 10:50 | DS ---
DATE OF SERVICE: 12/26/2020 FINAL DIAGNOSIS: PNEUMONITIS COPD EXACERBATION CHRONIC RESPIRATORY FAILURE, OXYGEN AT HOME HYPOKALEMIA, RESOLVED UTI (WAS ON MACROBID) HYPERTENSION SEVERE PERIPHERAL ARTERIAL DISEASE CHRONIC KIDNEY DISEASE, STAGE 3 ANXIETY DYSLIPIDEMIA HYPOTHYROIDISM CAROTID STENOSIS SEVERE ATHEROSCLEROTIC DISEASE ABDOMINAL AORTIC ANEURYSM CAD CVA, 2005 DEPRESSION DVT, LEFT LEG NEUROPATHY CHRONIC BACK PAIN DJD SPINE SUBDURAL HEMATOMA CAROTID ENDARTERECTOMY, LEFT CARDIAC CATH, 2005 FEM-POP BYPASS, 2005 VENA CAVA FILTER PLACEMENT, 2011 ANGIOPLASTY LLE, 2019 FEM-TIB BYPASS GRAFT, 2019 LEFT AKA, 07/2019 HIP FRACTURE, WITH HEMIARTHROPLASTY, DR. GALINDO (2019) POST OPERATIVE WOUND INFECTION, LEFT AKA ECHOCARDIOGRAM, COMPLETED 07/31/2020 LAST VITALS: Temp Pulse Resp BP Pulse Ox 97.4 F L 50 L 16 103/48 L 98 12/26/20 05:46 12/26/20 05:46 12/26/20 05:46 12/26/20 05:46 12/26/20 10:00 DISCHARGE INSTRUCTIONS: DISCHARGE TO HOME WITH DAUGHTER. AN APPOINTMENT IS SCHEDULED WITH DR. ROWE/MANUELA PERKINS APRN/GAURANG AZUL APRN ON December AT 10:30 AM. CONTINUE USE OF OXYGEN AT NIGHT AND NEEDED DURING THE DAY. CODE STATUS: DO NOT RESUSCITATE TAKE THESE MEDICATIONS AT HOME: Acetaminophen (Acetaminophen 325 Mg Tablet) 325 mg PO Q4H PRN PRN Reason: FEVER Last Admin: 12/21/20 11:24 Dose: 650 mg Documented by: Hydrocodone Bitart/Acetaminophen (Hydrocodone Bit/Acetaminophen 5/325 Mg Tablet) 1 tab PO Q6H PRN PRN Reason: Pain Last Admin: 12/25/20 06:13 Dose: 1 tab Documented by: IPRATROPIUM-ALBUTEROL NEBS 3 ML INHALATION QID (HOME MEDICATION) Alprazolam (Alprazolam 0.25 Mg Tablet) 0.25 mg PO TID PRN PRN Reason: Restlessness/Anxiety Last Admin: 12/26/20 09:27 Dose: 0.25 mg Documented by: Amlodipine Besylate (Amlodipine Besylate 5 Mg Tablet) 2.5 mg PO BID [facility] Last Admin: 12/26/20 09:28 Dose: 2.5 mg Documented by: Atorvastatin Calcium (Atorvastatin Calcium 20 Mg Tablet) 40 mg PO BEDTIME [facility] Last Admin: 12/25/20 20:51 Dose: 40 mg Documented by: Bisacodyl (Bisacodyl 10 Mg Supp.Rect) 10 mg RC DAILY PRN PRN Reason: Constipation Calcium/Vitamin D (Calcium Carbonate/Vitamin D3 500 Mg/5 Mcg(200iu) 1 Each Tablet) 1 each PO BID [facility] Last Admin: 12/26/20 09:26 Dose: 1 each Documented by: Cefdinir (Cefdinir 300 Mg Capsule) 300 mg PO Q12HR [facility] (NEW RX FOR 5 DAYS ) Stop: 12/28/20 20:59 Last Admin: 12/26/20 09:27 Dose: 300 mg Documented by: Diphenhydramine HCl (Diphenhydramine Hcl 25 Mg Capsule) 25 mg PO BEDTIME PRN PRN Reason: Insomnia Last Admin: 12/23/20 20:53 Dose: 25 mg Documented by: Docusate Sodium (Docusate Sodium 100 Mg Capsule) 100 mg PO BID PRN PRN Reason: Constipation Escitalopram Oxalate (Escitalopram Oxalate 10 Mg Tablet) 10 mg PO DAILY [facility] Last Admin: 12/26/20 09:27 Dose: 10 mg Documented by: Fenofibrate (Fenofibrate 54 Mg Tablet) 54 mg PO DAILY [facility] Last Admin: 12/26/20 09:27 Dose: 54 mg Documented by: Ferrous Sulfate (Ferrous Sulfate 324 Mg Tablet.) 324 mg PO DAILY [facility] Last Admin: 12/26/20 09:28 Dose: 324 mg Documented by: Furosemide (Furosemide 20 Mg Tablet) 20 mg PO 3 TIMES PER WEEK PRN PRN Reason: FLUID BUILD UP Gabapentin (Gabapentin 100 Mg Capsule) 100 mg PO TID [facility] Last Admin: 12/26/20 09:27 Dose: 100 mg Documented by: Levothyroxine Sodium (Levothyroxine Sodium 100 Mcg Tablet) 100 mcg PO QDAC [facility] Last Admin: 12/26/20 05:38 Dose: 100 mcg Documented by: Lisinopril (Lisinopril 10 Mg Tablet) 20 mg PO BID [facility] Last Admin: 12/26/20 09:27 Dose: 20 mg Documented by: Magnesium Hydroxide (Magnesium Hydroxide 30 Ml Cup) 5 ml PO DAILY PRN PRN Reason: Constipation Multivitamins (Multivitamin 1 Tab) 1 tab PO DAILY [facility] Last Admin: 12/26/20 09:28 Dose: 1 tab Documented by: Nystatin (Nystatin 15 Gm Powder) 1 applic TP BID [facility] Last Admin: 12/26/20 09:29 Dose: 1 applic Documented by: Potassium Chloride (Potassium Chloride 20 Meq Tab) 20 meq PO MOWESA WHEN TAKING LASIX Last Admin: 12/26/20 09:28 Dose: 20 meq Documented by: Prednisone (Prednisone 20 Mg Tablet) 10 mg PO DAILYWM [facility] (NEW RX FOR 5 DAYS) Last Admin: 12/26/20 09:26 Dose: 20 mg Documented by: Warfarin Sodium (Warfarin Sodium 3 Mg Tablet) 3 mg PO QPM [facility] ALLERGIES: denosumab [From Prolia] Adverse Reaction (Verified 04/27/19 16:43) propoxyphene HCl [From Darvon] Adverse Reaction (Verified 03/22/19 08:22) DISCONTINUED MEDICATIONS: MACROBID (PRESCRIBED PRIOR TO ADMISSION) NEW PRESCRIPTIONS: OMNICEF 300 MG BID FOR 5 DAYS PREDNISONE 10 MG DAILY FOR 5 DAYS SMOKING: NOT APPLICABLE DISEASE SPECIFIC EDUCATION: MEDICATIONS NUTRITION APPOINTMENT LAB REVIEW: 12/26/20 04:45 12/26/20 04:45 12/26/20 09:22: Puncture Site Lrad, Base Excess 4.1 H, O2 Saturation 98.3 H, ABG pH 7.50 H, ABG pCO2 35.0, ABG pO2 100.0, ABG HCO3 27.3, ABG Total CO2 28.4 H, Micheal Test Pos, Hemoglobin 1.1, Oxyhemoglobin 95.2, Carboxyhemoglobin 2.3 H, Total Hemoglobin 15.4, O2 Delivery Device Cannula, Oxygen Liter Flow 2.00 12/26/20 04:45: PT 19.1 H D, INR 1.79 12/26/20 04:45: WBC 6.58, RBC 4.55, Hgb 13.6, Hct 43.4, MCV 95.4, MCH 29.9, MCHC 31.3 L, RDW Coeff of Nataliya 14.3, Plt Count 163, Immature Gran % (Auto) 2.3, Neut % (Auto) 66.8, Lymph % (Auto) 20.1, [place] % (Auto) 9.4, Eos % (Auto) 0.8, Baso % (Auto) 0.6, Neut # (Auto) 4.4, Lymph # (Auto) 1.3, [place] # (Auto) 0.6, Eos # (Auto) 0.1, Baso # (Auto) 0.0, Immature Gran # (Auto) 0.2 12/26/20 04:45: Sodium 137.4, Potassium 5.14 H, Chloride 102.7, Carbon Dioxide 30.3 H, Anion Gap 9.54, BUN 28.5 H, Creatinine 0.79, Estimated GFR (MDRD) 69.00, BUN/Creatinine Ratio 36.07, Glucose 104.5, Calcium 10.88 H, Total Bilirubin 0.47, AST 25.7, ALT 67.1 H, Alkaline Phosphatase 68.3, Total Protein 6.20 L, Albumin 3.83, Globulin 2.37, Albumin/Globulin Ratio 1.61 DIET: RESUME TOLERATED (REGULAR SOLIDS, REGULAR LIQUIDS) ACTIVITY: UP TOLERATED TO THE CHAIR PATIENT HAS LEFT LEG PROSTHESIS THAT SHE DOESN'T WEAR DUE TO IRRITATING HER GROIN AREA HOSPITAL COURSE: 85 year old white female was hospitalized with pneumonia and UTI. The patient was treated with Rocephin and Zithromax. Her condition seems to have improved. The patient has been afebrile. Appetite has improved. Mental status has improved remarkably. Hydration status has improved. She has no symptoms of CHF or coronary insufficiency. The patient is a DNR. The patient will be discharged on Omnicef and Prednisone. She will be taking Potassium along with Lasix three times a week. TIME SPENT: More than 60 minutes. MTDD
--- NOTE | 2020-12-26 10:51 | PN ---
12/20/2020: Level 5 12/21/2020: Intermediate 12/22/2020: Intermediate 12/23/2020: Intermediate 12/24/2020: Intermediate 12/25/2020: Intermediate 12/26/2020: D as in discharge MTDD
--- NOTE | 2020-12-26 13:09 | PN ---
DATE OF SERVICE: 12/23/2020 SUBJECTIVE: 85 year old white female hospitalized with pneumonia and UTI. The patient's condition seems to be improving. She is eating. She says that she is feeling better. REVIEW OF SYSTEMS: CONSTITUTIONAL: No night sweats. No fatigue, malaise, lethargy. No fever or chills. HEENT: Eyes: No visual changes. No eye pain. No eye discharge. ENT: No runny nose. No epistaxis. No sinus pain. No sore throat. No odynophagia. No congestion. RESPIRATORY: Mild cough, no congestion. No hemoptysis. No shortness of breath. CARDIOVASCULAR: No angina symptoms. No CHF symptoms. No atypical chest pain for CAD. No palpitations. No PND. No orthopnea. GASTROINTESTINAL: No abdominal pain. No nausea or vomiting. No diarrhea or constipation. No hematemesis. No hematochezia. GENITOURINARY: No urgency. No frequency. No dysuria. No hematuria. No obstructive symptoms. No discharge. No pain. No significant abnormal bleeding. MUSCULOSKELETAL: No musculoskeletal pain; no joint swelling. NEUROLOGICAL: No headache. No neck pain. No syncope. No seizures. No dizziness. PSYCHIATRIC: Not anxious. No depression. No suicidal thoughts. No homicidal thoughts. SKIN: No rash. No lesions. No wounds. ENDOCRINE: No unexplained weight loss. No weight gain. HEMATOLOGIC/LYMPHATIC: No anemia. No purpura. No petechiae. No prolonged or excessive bleeding. No palpable lymph nodes. PHYSICAL EXAMINATION: VITAL SIGNS: Temperature 97.8, pulse 58, respiratory rate 18, blood pressure 142/80 and pulse ox 98%. HEENT: Head normocephalic, atraumatic. Eyes: Extraocular muscles are intact. Pupils are equal, round and reactive to light and accommodation. Ears: No lesions. Nose appeared normal. Throat: No exudate or erythema. NECK: Supple. No JVD, no carotid bruit. No lymphadenopathy or thyromegaly. LUNGS: Decreased breath sounds but clear to auscultation. Percussion note normal. Chest symmetrical. HEART: S1, S2, no S3. No murmurs. No cyanosis or clubbing. No ascites. Pulses: Dorsalis pedis and posterior tibial pulses +1 to +2 bilaterally. ABDOMEN: Soft. Nontender. Bowel sounds active. No CVA tenderness. No mass felt. EXTREMITIES: Trace edema. Full range of motion of all extremities, equal. NEUROLOGIC: No focal deficit. Cranial nerves II through XII are grossly intact. No headache. No double vision. SKIN: Not dry. Intact. Turgor - normal. LYMPHATIC: No palpable lymph nodes/no lymphedema. MUSCULOSKELETAL: Normal joints with no swelling. Muscle tone is normal. LABS: Hgb 12.2, hct 38, WBC 5,000 normal differential,creatinine 0.7, BUN 19, potassium 4.7 ASSESSMENT: 1. UTI/pneumonia both seem to be under control PLAN: 1. The patient is going to be on Rocephin 2. Continue Prednisone 3. Rest of the medications, antihypertensive and inhalers to be continued CONDITION: Improving. TIME SPENT: More than 30 minutes. Plan and coordination of the patient's care discussed in the presence of nurse. ARASH
--- NOTE | 2020-12-26 13:35 | CM.DICTOOL ---
ADMISSION: 12/20/20 22:13 DISCHARGE: DECEMBER 26, 2020 DATE OF SERVICE: 12/26/20 FINAL DIAGNOSIS PNEUMONITIS COPD EXACERBATION CHRONIC RESPIRATORY FAILURE, OXYGEN AT HOME HYPOKALEMIA, RESOLVED UTI (WAS ON MACROBID) HYPERTENSION SEVERE PERIPHERAL ARTERIAL DISEASE CHRONIC KIDNEY DISEASE, STAGE 3 ANXIETY DYSLIPIDEMIA HYPOTHYROIDISM CAROTID STENOSIS SEVERE ATHEROSCLEROTIC DISEASE ABDOMINAL AORTIC ANEURYSM CAD CVA, 2005 DEPRESSION DVT, LEFT LEG NEUROPATHY CHRONIC BACK PAIN DJD SPINE SUBDURAL HEMATOMA CAROTID ENDARTERECTOMY, LEFT CARDIAC CATH, 2005 FEM-POP BYPASS, 2005 VENA CAVA FILTER PLACEMENT, 2011 ANGIOPLASTY LLE, 2019 FEM-TIB BYPASS GRAFT, 2019 LEFT AKA, 07/2019 HIP FRACTURE, WITH HEMIARTHROPLASTY, DR. GALINDO (2019) POST OPERATIVE WOUND INFECTION, LEFT AKA ECHOCARDIOGRAM, COMPLETED 07/31/2020 LAST VITALS Temp Pulse Resp BP Pulse Ox 97.4 F L 50 L 16 103/48 L 98 12/26/20 05:46 12/26/20 05:46 12/26/20 05:46 12/26/20 05:46 12/26/20 10:00 TAKE THESE MEDICATIONS AT HOME Acetaminophen (Acetaminophen 325 Mg Tablet) 325 mg PO Q4H PRN PRN Reason: FEVER Last Admin: 12/21/20 11:24 Dose: 650 mg Documented by: Hydrocodone Bitart/Acetaminophen (Hydrocodone Bit/Acetaminophen 5/325 Mg Tablet) 1 tab PO Q6H PRN PRN Reason: Pain Last Admin: 12/25/20 06:13 Dose: 1 tab Documented by: IPRATROPIUM-ALBUTEROL NEBS 3 ML INHALATION QID (HOME MEDICATION) Alprazolam (Alprazolam 0.25 Mg Tablet) 0.25 mg PO TID PRN PRN Reason: Restlessness/Anxiety Last Admin: 12/26/20 09:27 Dose: 0.25 mg Documented by: Amlodipine Besylate (Amlodipine Besylate 5 Mg Tablet) 2.5 mg PO BID [facility] Last Admin: 12/26/20 09:28 Dose: 2.5 mg Documented by: Atorvastatin Calcium (Atorvastatin Calcium 20 Mg Tablet) 40 mg PO BEDTIME [facility] Last Admin: 12/25/20 20:51 Dose: 40 mg Documented by: Bisacodyl (Bisacodyl 10 Mg Supp.Rect) 10 mg RC DAILY PRN PRN Reason: Constipation Calcium/Vitamin D (Calcium Carbonate/Vitamin D3 500 Mg/5 Mcg(200iu) 1 Each Tablet) 1 each PO BID [facility] Last Admin: 12/26/20 09:26 Dose: 1 each Documented by: Cefdinir (Cefdinir 300 Mg Capsule) 300 mg PO Q12HR [facility] (NEW RX FOR 5 DAYS ) Stop: 12/28/20 20:59 Last Admin: 12/26/20 09:27 Dose: 300 mg Documented by: Diphenhydramine HCl (Diphenhydramine Hcl 25 Mg Capsule) 25 mg PO BEDTIME PRN PRN Reason: Insomnia Last Admin: 12/23/20 20:53 Dose: 25 mg Documented by: Docusate Sodium (Docusate Sodium 100 Mg Capsule) 100 mg PO BID PRN PRN Reason: Constipation Escitalopram Oxalate (Escitalopram Oxalate 10 Mg Tablet) 10 mg PO DAILY [facility] Last Admin: 12/26/20 09:27 Dose: 10 mg Documented by: Fenofibrate (Fenofibrate 54 Mg Tablet) 54 mg PO DAILY [facility] Last Admin: 12/26/20 09:27 Dose: 54 mg Documented by: Ferrous Sulfate (Ferrous Sulfate 324 Mg Tablet.Dr) 324 mg PO DAILY [facility] Last Admin: 12/26/20 09:28 Dose: 324 mg Documented by: Furosemide (Furosemide 20 Mg Tablet) 20 mg PO 3 TIMES PER WEEK PRN PRN Reason: FLUID BUILD UP Gabapentin (Gabapentin 100 Mg Capsule) 100 mg PO TID [facility] Last Admin: 12/26/20 09:27 Dose: 100 mg Documented by: Levothyroxine Sodium (Levothyroxine Sodium 100 Mcg Tablet) 100 mcg PO QDAC [facility] Last Admin: 12/26/20 05:38 Dose: 100 mcg Documented by: Lisinopril (Lisinopril 10 Mg Tablet) 20 mg PO BID [facility] Last Admin: 12/26/20 09:27 Dose: 20 mg Documented by: Magnesium Hydroxide (Magnesium Hydroxide 30 Ml Cup) 5 ml PO DAILY PRN PRN Reason: Constipation Multivitamins (Multivitamin 1 Tab) 1 tab PO DAILY [facility] Last Admin: 12/26/20 09:28 Dose: 1 tab Documented by: Nystatin (Nystatin 15 Gm Powder) 1 applic TP BID [facility] Last Admin: 12/26/20 09:29 Dose: 1 applic Documented by: Potassium Chloride (Potassium Chloride 20 Meq Tab) 20 meq PO [place]ESA WHEN TAKING LASIX Last Admin: 12/26/20 09:28 Dose: 20 meq Documented by: Prednisone (Prednisone 20 Mg Tablet) 10 mg PO DAILYWM [facility] (NEW RX FOR 5 DAYS) Last Admin: 12/26/20 09:26 Dose: 20 mg Documented by: Warfarin Sodium (Warfarin Sodium 3 Mg Tablet) 3 mg PO QPM [facility] ALLERGIES denosumab [From Prolia] Adverse Reaction (Verified 04/27/19 16:43) propoxyphene HCl [From Darvon] Adverse Reaction (Verified 03/22/19 08:22) DISCONTINUED MEDICATIONS MACROBID (PRESCRIBED PRIOR TO ADMISSION) NEW PRESCRIPTIONS: OMNICEF 300 MG BID FOR 5 DAYS PREDNISONE 10 MG DAILY FOR 5 DAYS SMOKING: NOT APPLICABLE DISEASE SPECIFIC EDUCATION: MEDICATIONS NUTRITION APPOINTMENT LAB REVIEW: 12/26/20 04:45 12/26/20 04:45 12/26/20 09:22: Puncture Site Lrad, Base Excess 4.1 H, O2 Saturation 98.3 H, ABG pH 7.50 H, ABG pCO2 35.0, ABG pO2 100.0, ABG HCO3 27.3, ABG Total CO2 28.4 H, Micheal Test Pos, Hemoglobin 1.1, Oxyhemoglobin 95.2, Carboxyhemoglobin 2.3 H, Total Hemoglobin 15.4, O2 Delivery Device Cannula, Oxygen Liter Flow 2.00 12/26/20 04:45: PT 19.1 H D, INR 1.79 12/26/20 04:45: WBC 6.58, RBC 4.55, Hgb 13.6, Hct 43.4, MCV 95.4, MCH 29.9, MCHC 31.3 L, RDW Coeff of Nataliya 14.3, Plt Count 163, Immature Gran % (Auto) 2.3, Neut % (Auto) 66.8, Lymph % (Auto) 20.1, [place] % (Auto) 9.4, Eos % (Auto) 0.8, Baso % (Auto) 0.6, Neut # (Auto) 4.4, Lymph # (Auto) 1.3, [place] # (Auto) 0.6, Eos # (Auto) 0.1, Baso # (Auto) 0.0, Immature Gran # (Auto) 0.2 12/26/20 04:45: Sodium 137.4, Potassium 5.14 H, Chloride 102.7, Carbon Dioxide 30.3 H, Anion Gap 9.54, BUN 28.5 H, Creatinine 0.79, Estimated GFR (MDRD) 69.00, BUN/Creatinine Ratio 36.07, Glucose 104.5, Calcium 10.88 H, Total Bilirubin 0.47, AST 25.7, ALT 67.1 H, Alkaline Phosphatase 68.3, Total Protein 6.20 L, Albumin 3.83, Globulin 2.37, Albumin/Globulin Ratio 1.61 PLAN: DISCHARGE TO HOME WITH DAUGHTER DIET: RESUME TOLERATED (REGULAR SOLIDS, REGULAR LIQUIDS) ACTIVITY: UP TOLERATED TO THE CHAIR PATIENT HAS LEFT LEG PROSTHESIS THAT SHE DOESN'T WEAR DUE TO IRRITATING HER GROIN AREA AN APPOINTMENT IS SCHEDULED WITH DR. ROWE/MANUELA PERKINS APRN/GAURANG AZUL APRN ON December AT 10:30 AM CONTINUE USE OF OXYGEN AT NIGHT AND NEEDED DURING THE DAY CODE STATUS: DO NOT RESUSCITATE MS. THURMAN IS ALERT AND ORIENTED X 4. SHE IS FORGETFUL AT TIMES. MS. THURMAN IS AWARE AND AGREEABLE TO PLANS FOR DISCHARGE HOME TODAY. SHE LIVES WITH HER DAUGHTER, MISAEL. MS. THURMAN HAS FOR HER USE AT HOME A RAMP, SHOWER CHAIR, WHEELCHAIR, WALKER, OXYGEN AND A NEBULIZER. MS. THURMAN IS INDEPENDENT WITH FEEDING. MEAL INTAKES ARE FOOD AT 25-100%. MS. THURMAN REQUIRES ASSISTANCE WITH TRANSFERS TO THE BEDSIDE CHAIR AND BSC. SHE IS ABLE TO PIVOT TRANSFER USING THE RIGHT LEG. MS. THURMAN REQUIRES ASSISTANCE WITH BATHING, DRESSING AND SOME BED MOBILITY. HYDRATION STATUS IS GOOD. SKIN IS INTACT EXCEPT FOR A REDDENED AREA TO LEFT GROIN; PATIENT REPORTS IS FROM LEFT LEG PROSTHESIS. NYSTOP APPLIED TO ABDOMINAL FOLDS, LEFT GROIN. MS. THURMAN HAS URINARY DRIBBLING AND WEARS DEPENDS UNDERGARMENTS. BIJAN ROWE MD
--- NOTE | 2020-12-27 12:43 | PN ---
DATE OF SERVICE: 12/24/2020 SUBJECTIVE: 85 year old white female hospitalized with pneumonia and UTI. Condition has improved. She is sitting up in the chair and eating. REVIEW OF SYSTEMS: CONSTITUTIONAL: No night sweats. No fatigue, malaise, lethargy. No fever or chills. HEENT: Eyes: No visual changes. No eye pain. No eye discharge. ENT: No runny nose. No epistaxis. No sinus pain. No sore throat. No odynophagia. No congestion. RESPIRATORY: No cough, no congestion. No hemoptysis. No shortness of breath. CARDIOVASCULAR: No angina symptoms. No CHF symptoms. No atypical chest pain for CAD. No palpitations. No PND. No orthopnea. GASTROINTESTINAL: No abdominal pain. No nausea or vomiting. No diarrhea or constipation. No hematemesis. No hematochezia. Appetite has improved. GENITOURINARY: No urgency. No frequency. No dysuria. No hematuria. No obstructive symptoms. No discharge. No pain. No significant abnormal bleeding. MUSCULOSKELETAL: No musculoskeletal pain; no joint swelling. NEUROLOGICAL: No headache. No neck pain. No syncope. No seizures. No dizziness. PSYCHIATRIC: Not anxious. No depression. No suicidal thoughts. No homicidal thoughts. SKIN: No rash. No lesions. No wounds. ENDOCRINE: No unexplained weight loss. No weight gain. HEMATOLOGIC/LYMPHATIC: No anemia. No purpura. No petechiae. No prolonged or excessive bleeding. No palpable lymph nodes. PHYSICAL EXAMINATION: GENERAL: The patient seems to be oriented to place and person. VITAL SIGNS: Temperature 96.8, pulse 46, respiratory rate 16, blood pressure 144/62 and pulse ox 96%. HEENT: Head normocephalic, atraumatic. Eyes: Extraocular muscles are intact. Pupils are equal, round and reactive to light and accommodation. Ears: No lesions. Nose appeared normal. Throat: No exudate or erythema. NECK: Supple. No JVD, no carotid bruit. No lymphadenopathy or thyromegaly. LUNGS:Decreased breath sounds but clear to auscultation. Percussion note normal. Chest symmetrical. HEART: S1, S2, no S3. No murmurs. No cyanosis or clubbing. No ascites. Pulses: Dorsalis pedis and posterior tibial pulses +1 to +2 bilaterally. ABDOMEN: Soft. Nontender. Bowel sounds active. No CVA tenderness. No mass felt. EXTREMITIES: No edema. Full range of motion of all extremities, equal. NEUROLOGIC: No focal deficit. Cranial nerves II through XII are grossly intact. No headache. No double vision. SKIN: Not dry. Intact. Turgor - normal. LYMPHATIC: No palpable lymph nodes/no lymphedema. MUSCULOSKELETAL: Normal joints with no swelling. Muscle tone is normal. LABS: Hgb 12.8, hct 41, WBC 3,900 normal differential, creatinine 0.7, BUN 19, potassium 4.7 ASSESSMENT: 1. Pneumonia 2. UTI seems to be resolving 3. Dementia stable 4. Severe peripheral arterial disease 5. Severe COPD PLAN: 1. Continue antibiotics, steroids and inhalers 2. INR is 1.2 yesterday and today was 1.7. She was restarted on her Coumadin. CONDITION: Improved. TIME SPENT: More than 30 minutes. Plan and coordination of the patient's care discussed in the presence of nurse. ARASH
--- NOTE | 2020-12-27 16:25 | OTDC ---
Date of Evaluation:12/20/20 Diagnosis:[Pneumonia/UTI] Number of visits:[] Last Date of Service:[12/25/20] Reason For Discharge:[Pt discharged from hospital to home.] Discharge Summary:[Pt receiving home health.] ARASH
== END 2020-12-26 14:05 | disposition home or self-care (01) | DRG 194 ==
LOC: ED 18:29 → MEDSURG A 22:13
PROVIDERS: ADMIT Internal Medicine; ATTEND Internal Medicine
DX: J44.1 Chronic obstructive pulmonary disease with (acute) exacerbation; I82.4Z9 Acute embolism and thrombosis of unspecified deep veins of unspecified distal lower extremity; I71.4 Abdominal aortic aneurysm, without rupture; F33.9 Major depressive disorder, recurrent, unspecified; I10 Essential (primary) hypertension; E78.5 Hyperlipidemia, unspecified; I25.10 Atherosclerotic heart disease of native coronary artery without angina pectoris; Z79.899 Other long term (current) drug therapy; F41.9 Anxiety disorder, unspecified; Z89.612 Acquired absence of left leg above knee; Z20.822 Contact with and (suspected) exposure to COVID-19; E87.6 Hypokalemia; Z86.73 Personal history of transient ischemic attack (TIA), and cerebral infarction without residual deficits; N39.0 Urinary tract infection, site not specified; I65.29 Occlusion and stenosis of unspecified carotid artery; J18.9 Pneumonia, unspecified organism; N18.30 Chronic kidney disease, stage 3 unspecified

== ENCOUNTER 2022-05-23 15:07 | Inpatient (IN) ==
--- NOTE | 2022-05-23 15:09 | ED.PDOC ---
General ED Provider: Dr. SUZI TAVAREZ MD Chief Complaint: Respiratory Complaint Stated Complaint: Patient complains of dysuria. She just completed a course of oral antibiotics for a UTI. Patient also has a nonproductive cough for 6-8 weeks. Denies fever, chills, dyspnea, orthopnea, chest pain. Time Seen by Provider: 05/23/22 15:08 Primary Care Provider: BIJAN ROWE MD Nursing and Triage Documentation Reviewed and Agree: Yes Does patient meet sepsis criteria?: No System Inflammatory Response Syndrome: Not Applicable Sepsis Protocol: For patient's 13 years and over: Temp is 96.8 and below OR 101 and greater Pulse >90 BPM Resp >20/minute Acutely Altered Mental Status Are patient's symptoms suggestive of a new infection, such as: -Pneumonia -Skin, Soft Tissue -Endocarditis -UTI -Bone, Joint Infection -Implantable Device -Acute Abdominal Infection -Wound Infection -Meningitis -Blood Stream Catheter Infection -Unknown Review of Systems Review Of Systems Constitutional: Reports No symptoms Eyes: Reports No symptoms Ears, Nose, Mouth, Throat: Reports No symptoms Respiratory: Reports Cough Cardiac: Reports No symptoms GI: Reports No symptoms : Reports Dysuria Musculoskeletal: Reports No symptoms Skin: Reports No symptoms Neurological: Reports Anxiety Endocrine: Reports No symptoms Hematologic/Lymphatic: Reports No symptoms All Other Systems: Reviewed and Negative [facility] Medical History (Updated 05/23/22 @ 15:59 by SUZI TAVAREZ MD) Amputation above knee Anemia Ataxia Back pain CAD (coronary artery disease) Chronic bronchitis with COPD (chronic obstructive pulmonary disease) COPD, severe Degenerative joint disease of spine Depression Depression DVT (deep venous thrombosis) Dyslipidemia Dyslipidemia TIAN (generalized anxiety disorder) H/O subdural hemorrhage H/O: CVA (cerebrovascular accident) Hypertension Hypothyroid Neuropathy Non-compliant behavior Osteoarthritis Ovarian cyst PAD (peripheral artery disease) Recurrent UTI Tibia fracture Urinary incontinence Family History FATHER Colon cancer Mother Colon cancer Other Pancreatic cancer Social History Smoking and tobacco status: Former smoker History of recent travel: No Surgical History (Updated 05/23/22 @ 07:34 by BRANDON NGUYEN, RN) History of angioplasty of peripheral vessel History of intravascular stent placement S/P carotid endarterectomy S/P femoral-femoral bypass surgery Female Reproductive History Menstrual Hx Hysterectomy: No Hx Tubal Ligation: No Physical Exam Physical Exam Appearance: Reports Ill-appearing (Chronically ill appearing. No acute distress.) and No pain distress Ill-appearing: Mild Pain Distress: None Eyes: Reports Not Examined ENT: Reports Nose normal and Oropharynx normal Neck: Supple Respiratory: Reports Airway patent, Breath sounds clear and Breath sounds equal Cardiovascular: Reports RRR, No rub and No murmur GI/: Reports Soft, Nontender, No masses and Bowel sounds normal Musculoskeletal: Reports No edema Skin: Reports Warm, Dry and Normal color Neurological: Reports Alert and Oriented Psychiatric: Reports Affect appropriate and Mood appropriate Interpretation Radiology Interpretation Radiology Interpretation By: Radiologist Exam Interpreted: Portable CXR (bilateral pneumonia) Critical Care Note Critical Care Note Total Critical Care Time (mins): 0 Course Course Hematology/Chemistry: 05/23/22 15:20 05/23/22 15:20 Orders, Labs, Meds: Lab Review 05/23/22 05/23/22 15:20 15:20 WBC 7.38 RBC 4.64 Hgb 14.1 Hct 42.8 MCV 92.2 MCH 30.4 MCHC 32.9 RDW Coeff of Nataliya 14.0 Plt Count 165 Immature Gran % (Auto) 0.4 Neut % (Auto) 78.7 H Lymph % (Auto) 10.0 [place] % (Auto) 7.2 Eos % (Auto) 3.3 Baso % (Auto) 0.4 Neut # (Auto) 5.8 Lymph # (Auto) 0.7 [place] # (Auto) 0.5 Eos # (Auto) 0.2 Baso # (Auto) 0.0 Immature Gran # (Auto) 0.0 Sodium 136.4 Potassium 2.88 L Chloride 100.6 Carbon Dioxide 26.8 Anion Gap 11.88 BUN 15.1 Creatinine 0.71 Estimated GFR (MDRD) 78.00 BUN/Creatinine Ratio 21.26 Glucose 118.2 H Calcium 8.61 Total Bilirubin 1.29 AST 33.4 ALT 42.0 H Alkaline Phosphatase 53.6 Total Protein 6.57 Albumin 3.85 Globulin 2.72 Albumin/Globulin Ratio 1.41 Orders Category Date Time Status CBC W/ AUTO DIFF Stat LAB 05/23/22 15:20 Completed CMP [COMPREHENSIVE METABOLIC PANEL] Stat LAB 05/23/22 15:20 Completed URINALYSIS C & S IF INDICATED Stat LAB 05/23/22 15:09 Uncollected Potassium Chloride [K-Dur] MEDS 05/23/22 15:40 Discontinued 40 meq PO ONCE STA CXR [CHEST, 1V AP ONLY] Stat RADS 05/23/22 15:09 Completed Medications Discontinued Medications Generic Name Dose Route Start Last Admin Trade Name Freq PRN Reason Stop Dose Admin Potassium Chloride 40 meq 05/23/22 15:40 05/23/22 15:46 Potassium Chloride 20 Meq Tab PO 05/23/22 15:41 40 meq ONCE STA Administration Vital Signs: Temp Pulse Resp BP Pulse Ox 05/23/22 15:10 97.9 F 79 20 163/60 H 94 L Discharge Plan Discharge Patient Disposition: ADMITTED INPATIENT Discharge Problem: Pneumonia, Hypokalemia Did you review [place] [employer] for ALL controlled substances?: Not Applicable ED Provider: SUZI TAVAREZ Condition: Fair Physician Progress Note: []
[2022-05-23 15:25] LABS: BASOPHILS % (AUTO) 0.4 % (0.0-3.0); EOSINOPHILS # (AUTO) 0.2 K/ul (0.0-0.7); EOSINOPHILS % (AUTO) 3.3 % (0.0-7.0); HEMATOCRIT 42.8 % (37.0-47.0); HEMOGLOBIN 14.1 g/dl (12.0-16.0); IMMATURE GRANULOCYTE % (AUTO) 0.4 % (0.0-5.0); LYMPHOCYTES # (AUTO) 0.7 K/uL (0.60-3.4); MEAN CORPUSCULAR HEMOGLOBIN 30.4 pg (27.0-31.0); MEAN CORPUSCULAR HGB CONC 32.9 (31.8-35.4); MEAN CORPUSCULAR VOLUME 92.2 fl (81.0-99.0); MONOCYTES # (AUTO) 0.5 K/uL (0.4-2.0); MONOCYTES % (AUTO) 7.2 (0-10); NEUTROPHILS # (AUTO) 5.8 K/ul (2.0-6.9); NEUTROPHILS % (AUTO) 78.7 % (42.2-75.2); PLATELET COUNT 165 10^3/uL (140-440); RED BLOOD COUNT 4.64 10^6/ul (4.20-5.40); WHITE BLOOD COUNT 7.38 K/ul (4.6-10.2)
[2022-05-23 15:37] LABS: ALBUMIN 3.85 g/dL (3.5-5.0); ALKALINE PHOSPHATASE 53.6 U/L (53-141); ASPARTATE AMINO TRANSFERASE 33.4 U/L (14-36); BILIRUBIN,TOTAL 1.29 mg/dL (0.2-1.3); BLOOD UREA NITROGEN 15.1 mg/dL (7-17); CALCIUM 8.61 mg/dL (8.4-10.2); CARBON DIOXIDE 26.8 mmol/L (22-30.0); CHLORIDE 100.6 mmol/L (98-107); CREATININE 0.71 mg/dL (0.60-1.30); GLUCOSE 118.2 mg/dL (74-106); POTASSIUM 2.88 mmol/L (3.5-5.1); SODIUM 136.4 mmol/L (134.5-145); TOTAL PROTEIN 6.57 g/dL (6.3-8.2)
[2022-05-23] MEDS ORDERED: K-DUR PO STA (15:40)
--- NOTE | 2022-05-23 15:50 | DI ---
EXAM: CHEST ONE-VIEW HISTORY: Cough COMPARISON: 04/13/2021 FINDINGS: Right infrahilar ground-glass opacities present. Half there is increase in density behind the cardiac silhouette. Most likely represents pneumonia in the right infrahilar region and left lo wer lobe. Cardiac silhouette is mildly enlarged. Vascular calcifications present in the aortic arch . IMPRESSION: Pneumonia
[2022-05-23] MEDS ORDERED: DUONEB NEB STA (16:01)
--- NOTE | 2022-05-23 16:02 | PCM ---
Chief Complaint Chief Complaint: cough, wheezing History of Present Illness History of Present Illness: Patient presented with productive cough and increased wheezing. CXR showed bilateral pneumonia. She was also found to be hypokalemic. Review of Systems Constitutional: Reports Weakness Eyes: Reports No symptoms Ears: Reports No symptoms Nose: Reports No symptoms Throat: Reports No symptoms Mouth: Reports No symptoms Respiratory: Reports Cough, Shortness of air and Wheeze Cardiovascular: Reports No symptoms Gastrointestinal: Reports No symptoms Genitourinary: Reports dysuria Neurological: Reports No symptoms Musculoskeletal: Reports No symptoms Skin: Reports No symptoms Hematology: Reports No symptoms Endocrine: Reports No symptoms Psychiatric: Reports No symptoms Habits: Denies Tobacco use, Substance use, Alcohol use or Other Allergies Allergies Allergy/AdvReac Type Severity Reaction Status Date / Time denosumab [From Prolia] AdvReac Verified 05/23/22 15:08 propoxyphene HCl AdvReac Verified 05/23/22 15:08 [From Darvon] [facility], [facility] Medical History (Updated 05/23/22 @ 15:59 by SUZI TAVAREZ MD) Amputation above knee Anemia Ataxia Back pain CAD (coronary artery disease) Chronic bronchitis with COPD (chronic obstructive pulmonary disease) COPD, severe Degenerative joint disease of spine Depression Depression DVT (deep venous thrombosis) Dyslipidemia Dyslipidemia TIAN (generalized anxiety disorder) H/O subdural hemorrhage H/O: CVA (cerebrovascular accident) Hypertension Hypothyroid Neuropathy Non-compliant behavior Osteoarthritis Ovarian cyst PAD (peripheral artery disease) Recurrent UTI Tibia fracture Urinary incontinence Surgical History (Updated 05/23/22 @ 07:34 by BRANDON NGUYEN, RN) History of angioplasty of peripheral vessel History of intravascular stent placement S/P carotid endarterectomy S/P femoral-femoral bypass surgery Family History FATHER Colon cancer Mother Colon cancer Other Pancreatic cancer Social History Smoking and tobacco status: Former smoker History of recent travel: No Medications Medications: Medications Generic Name Dose Route Start Last Admin Trade Name Freq PRN Reason Stop Dose Admin Ceftriaxone Sodium 2 gm/ 100 mls @ 100 mls/hr 05/23/22 16:00 Sodium Chloride IV 05/23/22 16:59 ONCE ONE Sodium Chloride 1 syr 05/23/22 16:00 0.9% Sodium Chloride 10 Ml Disp.Syrin IVF PRN PRN To flush IV Body Composition Height: 5 ft 2 in Weight: 60.4 kg Body Mass Index (BMI): 24.3 Vital Signs Temperature: 97.9 F Pulse Rate: 79 Respiratory Rate: 20 Blood Pressure: 163/60 O2 Sat by Pulse Oximetry: 94 Physical Examination Appearance: Reports Ill-appearing, No pain distress and Well-nourished Ill-appearing: Moderate Pain Distress: None Eyes: Reports DICK and EOMI ENT: Reports Ears normal, Nose normal and Oropharynx normal Neck: Supple Respiratory: Reports Airway patent, Breath sounds equal, Breath sounds diminished and Wheezes Cardiovascular: Reports RRR, No rub and No murmur GI/: Reports Soft, Nontender, No masses and Bowel sounds normal Musculoskeletal: Reports Normal strength, ROM intact and No edema Skin: Reports Warm and Dry Neurological: Reports Alert and Oriented Psychiatric: Reports Affect appropriate and Mood appropriate Lab/Tests/Diagnostic Imaging Lab/Tests/Diagnostic Imaging: Lab Review 05/23/22 05/23/22 15:20 15:20 WBC 7.38 RBC 4.64 Hgb 14.1 Hct 42.8 MCV 92.2 MCH 30.4 MCHC 32.9 RDW Coeff of Nataliya 14.0 Plt Count 165 Immature Gran % (Auto) 0.4 Neut % (Auto) 78.7 H Lymph % (Auto) 10.0 [place] % (Auto) 7.2 Eos % (Auto) 3.3 Baso % (Auto) 0.4 Neut # (Auto) 5.8 Lymph # (Auto) 0.7 [place] # (Auto) 0.5 Eos # (Auto) 0.2 Baso # (Auto) 0.0 Immature Gran # (Auto) 0.0 Sodium 136.4 Potassium 2.88 L Chloride 100.6 Carbon Dioxide 26.8 Anion Gap 11.88 BUN 15.1 Creatinine 0.71 Estimated GFR (MDRD) 78.00 BUN/Creatinine Ratio 21.26 Glucose 118.2 H Calcium 8.61 Total Bilirubin 1.29 AST 33.4 ALT 42.0 H Alkaline Phosphatase 53.6 Total Protein 6.57 Albumin 3.85 Globulin 2.72 Albumin/Globulin Ratio 1.41 Orders Category Date Time Status NEBULIZER TREATMENT Stat CARDIO 05/23/22 16:01 Ordered Saline Lock [ED IV/MEDIPORT/POWERPORT] .ONCE EMERGENCY 05/23/22 16:00 Ordered CBC W/ AUTO DIFF Stat LAB 05/23/22 15:20 Completed CMP [COMPREHENSIVE METABOLIC PANEL] Stat LAB 05/23/22 15:20 Completed URINALYSIS C & S IF INDICATED Stat LAB 05/23/22 15:09 Uncollected 0.9 % Sodium Chloride [Saline Flush] MEDS 05/23/22 16:00 Ordered 1 syr IVF PRN PRN Ceftriaxone Sodium [Rocephin 2 gm Vial] 2 gm MEDS 05/23/22 16:00 Ordered 0.9 % Sodium Chloride [Sodium Chloride 100Ml] 100 ml IV ONCE Ipratropium/Albuterol Neb [Duoneb] MEDS 05/23/22 16:01 Stat 3 ml NEB ONCE STA Potassium Chloride [K-Dur] MEDS 05/23/22 15:40 Discontinued 40 meq PO ONCE STA CXR [CHEST, 1V AP ONLY] Stat RADS 05/23/22 15:09 Completed Medications Generic Name Dose Route Start Last Admin Trade Name Freq PRN Reason Stop Dose Admin Ceftriaxone Sodium 2 gm/ 100 mls @ 100 mls/hr 05/23/22 16:00 Sodium Chloride IV 05/23/22 16:59 ONCE ONE Sodium Chloride 1 syr 05/23/22 16:00 0.9% Sodium Chloride 10 Ml Disp.Syrin IVF PRN PRN To flush IV Discontinued Medications Generic Name Dose Route Start Last Admin Trade Name Freq PRN Reason Stop Dose Admin Albuterol/Ipratropium 3 ml 05/23/22 16:01 Ipratropium/Albuterol Vial.Neb NEB 05/23/22 16:02 ONCE STA Potassium Chloride 40 meq 05/23/22 15:40 05/23/22 15:46 Potassium Chloride 20 Meq Tab PO 05/23/22 15:41 40 meq ONCE STA Administration Assessment (1) Pneumonia: Status: Acute Code(s): J18.9 - Pneumonia, unspecified organism SNOMED Code(s): 415229440 (2) Hypokalemia: Status: Acute Code(s): E87.6 - Hypokalemia SNOMED Code(s): 86462525 Plan Plan: Patient will be admitted for nebs, IV antibiotics, IV steroids. She will have her potassium deficit replaced.
[2022-05-23] MEDS: ROCEPHIN 2 GM VIAL 2 GM in SODIUM CHLORIDE 100ML 100 ML IV ONE ×2 (16:15→16:18)
[2022-05-23] MEDS ORDERED: ZOFRAN 4 MG/2 ML IVP PRN (16:18)
[2022-05-23] MEDS: ROCEPHIN 2 GM VIAL ONE ×2 (16:19→18:49)
[2022-05-23 16:27] LABS: ABG PH 7.47 (7.35-7.45); BEecf 9.1 (-2.0-3.0); COHb 4.7 (0.5-1.5); HCO3 32.8 (21-28); MetHb 0.2 (0-1.5); TCO2 34.2 (19-24); sO2 94.4 % (94-98); tHb 13.2 g/dl (11.7-17.4)
[2022-05-23 16:45] LABS: SARS COV-2 RNA RAPID NAAT NEGATIVE (NEGATIVE)
[2022-05-23] MEDS: SODIUM CHLORIDE 0.9%-KCL 20 MEQ 1,000 ML IV SCH (17:31)
[2022-05-23] MEDS: COUMADIN PO SCH (17:32)
[2022-05-23] MEDS: DUONEB NEB SCH ×2 (17:33→23:15)
[2022-05-23 17:38] LABS: BILIRUBIN,URINE Negative (NEGATIVE); CLARITY,URINE Clear (CLEAR); COLOR,URINE Yellow (YELLOW); GLUCOSE, URINE (UA) Negative (NEGATIVE); KETONES,URINE Negative (NEGATIVE); LEUKOCYTE ESTERASE ,URINE 1+ (NEGATIVE); NITRITE,URINE Positive (NEGATIVE); PROTEIN,URINE Trace (NEGATIVE); URINE, BLOOD 1+ (NEGATIVE)
[2022-05-23 17:41] LABS: BACTERIA,URINE 3+ (NOT PRESENT); URINE RBC, MICROSCOPIC 0-2 (0-2)
[2022-05-23 17:50] VITALS: BMI 23.2
[2022-05-23] MEDS: ZITHROMAX 500 MG in SODIUM CHLORIDE 250 ML IV SCH (18:04)
[2022-05-23] MEDS: SOLU-MEDROL 125 MG IVP SCH ×2 (18:36→23:27)
[2022-05-23] MEDS: NEURONTIN PO SCH (20:34)
[2022-05-23] MEDS: NORVASC PO SCH (20:35)
[2022-05-24] MEDS: DUONEB NEB SCH ×4 (04:35→23:04)
[2022-05-24 04:53] LABS: BASOPHILS % (AUTO) 0.3 % (0.0-3.0); EOSINOPHILS % (AUTO) 0.3 % (0.0-7.0); HEMATOCRIT 39.1 % (37.0-47.0); HEMOGLOBIN 12.8 g/dl (12.0-16.0); IMMATURE GRANULOCYTE % (AUTO) 0.6 % (0.0-5.0); LYMPHOCYTES # (AUTO) 0.5 K/uL (0.60-3.4); LYMPHOCYTES % (AUTO) 13.2 (10.0-50.0); MEAN CORPUSCULAR HEMOGLOBIN 30.8 pg (27.0-31.0); MEAN CORPUSCULAR HGB CONC 32.7 (31.8-35.4); MONOCYTES # (AUTO) 0.1 K/uL (0.4-2.0); MONOCYTES % (AUTO) 2.3 (0-10); NEUTROPHILS # (AUTO) 2.8 K/ul (2.0-6.9); NEUTROPHILS % (AUTO) 83.3 % (42.2-75.2); PLATELET COUNT 155 10^3/uL (140-440); RDW COEFFICIENT OF VARIATION 13.9 % (11.6-14.8); RED BLOOD COUNT 4.16 10^6/ul (4.20-5.40); WHITE BLOOD COUNT 3.41 K/ul (4.6-10.2)
[2022-05-24 05:10] LABS: ALANINE AMINOTRANSFERASE 41.2 U/L (0-35); ALBUMIN 3.67 g/dL (3.5-5.0); ALKALINE PHOSPHATASE 51.1 U/L (53-141); ASPARTATE AMINO TRANSFERASE 36.4 U/L (14-36); BILIRUBIN,TOTAL 0.76 mg/dL (0.2-1.3); BLOOD UREA NITROGEN 14.2 mg/dL (7-17); CALCIUM 8.89 mg/dL (8.4-10.2); CARBON DIOXIDE 21.6 mmol/L (22-30.0); CHLORIDE 109.4 mmol/L (98-107); CREATININE 0.55 mg/dL (0.60-1.30); GLUCOSE 190.3 mg/dL (74-106); POTASSIUM 3.68 mmol/L (3.5-5.1); SODIUM 139.3 mmol/L (134.5-145); TOTAL PROTEIN 6.15 g/dL (6.3-8.2)
[2022-05-24] MEDS: SOLU-MEDROL 125 MG IVP SCH ×3 (05:45→21:53)
[2022-05-24] MEDS: ZITHROMAX 500 MG in SODIUM CHLORIDE 250 ML IV SCH (08:25)
[2022-05-24] MEDS: NEURONTIN PO SCH ×3 (08:25→21:54)
[2022-05-24] MEDS: NORVASC PO SCH ×2 (08:25→21:54)
[2022-05-24] MEDS: LEXAPRO PO SCH (08:25)
[2022-05-24] MEDS: SODIUM CHLORIDE 0.9%-KCL 20 MEQ 1,000 ML IV SCH (08:39)
[2022-05-24] MEDS: XANAX PO PRN (08:39)
[2022-05-24] MEDS: ROCEPHIN 1 GM/50 ML D5W 1 GM/50 ML BAG IV SCH (10:51)
--- NOTE | 2022-05-24 12:13 | PCM.PROG ---
Date Seen by Provider: 05/24/22 Time Seen by Provider: 10:50 Subjective: Patient states that she better feeling is less and nonproductive cough, Had failed outpatient antibiotics. Now able to clear secretions. she is comfortable in chair having lunch Objective: Vitals: T=97.1 F, P=82, R=18, VZ=844/64, SPO2=95 HEENT: [Mucus membrane moist ] Neck: [supple ] Lungs: [Clinically clear bilaterally ] CVS: [ Regular s1, S 2 only ] Abdomen: [soft Non tender] Extremities: [left BKA, Right leg no edema ] Neurological: [Awake and alert, speech is normal] Skin: [no lesions] Lab/Tests/Diagnostic Imaging: [ Laboratory Results - last 24 hr 05/23/22 05/23/22 05/23/22 16:00 16:12 17:20 WBC RBC Hgb Hct MCV MCH MCHC RDW Coeff of Nataliya Plt Count Immature Gran % (Auto) Neut % (Auto) Lymph % (Auto) [place] % (Auto) Eos % (Auto) Baso % (Auto) Neut # (Auto) Lymph # (Auto) [place] # (Auto) Eos # (Auto) Baso # (Auto) Immature Gran # (Auto) Puncture Site Rrad Base Excess 9.1 H O2 Saturation 94.4 ABG pH 7.47 H ABG pCO2 45.0 ABG pO2 68.0 L ABG HCO3 32.8 H ABG Total CO2 34.2 H Micheal Test Pos Hemoglobin 0.2 Oxyhemoglobin 93.0 L Carboxyhemoglobin 4.7 H Total Hemoglobin 13.2 O2 Delivery Device Cannula Oxygen Liter Flow 2.00 Sodium Potassium Chloride Carbon Dioxide Anion Gap BUN Creatinine Estimated GFR (MDRD) BUN/Creatinine Ratio Glucose Calcium Total Bilirubin AST ALT Alkaline Phosphatase Total Protein Albumin Globulin Albumin/Globulin Ratio Urine Color Yellow Urine Clarity Clear Urine pH 7.0 Ur Specific Gle[place] 1.015 Urine Protein Trace H Urine Glucose (UA) Negative Urine Ketones Negative Urine Blood 1+ H Urine Nitrite Positive H Urine Bilirubin Negative Urine Urobilinogen 2.0 H Ur Leukocyte Esterase 1+ H Urine Microscopic RBC 0-2 Urine Microscopic WBC 10-20 Ur Squamous Epith Cells 2-5 Urine Bacteria 3+ SARS CoV-2 RNA Rapid TUCKER Negative 05/24/22 05/24/22 04:51 04:51 WBC 3.41 L RBC 4.16 L Hgb 12.8 Hct 39.1 MCV 94.0 MCH 30.8 MCHC 32.7 RDW Coeff of Nataliya 13.9 Plt Count 155 Immature Gran % (Auto) 0.6 Neut % (Auto) 83.3 H Lymph % (Auto) 13.2 [place] % (Auto) 2.3 Eos % (Auto) 0.3 Baso % (Auto) 0.3 Neut # (Auto) 2.8 Lymph # (Auto) 0.5 L [place] # (Auto) 0.1 L Eos # (Auto) 0.0 Baso # (Auto) 0.0 Immature Gran # (Auto) 0.0 Puncture Site Base Excess O2 Saturation ABG pH ABG pCO2 ABG pO2 ABG HCO3 ABG Total CO2 Mciheal Test Hemoglobin Oxyhemoglobin Carboxyhemoglobin Total Hemoglobin O2 Delivery Device Oxygen Liter Flow Sodium 139.3 Potassium 3.68 Chloride 109.4 H Carbon Dioxide 21.6 L Anion Gap 11.98 BUN 14.2 Creatinine 0.55 L Estimated GFR (MDRD) 105.00 BUN/Creatinine Ratio 25.81 Glucose 190.3 H D Calcium 8.89 Total Bilirubin 0.76 AST 36.4 H ALT 41.2 H Alkaline Phosphatase 51.1 L Total Protein 6.15 L Albumin 3.67 Globulin 2.48 Albumin/Globulin Ratio 1.47 Urine Color Urine Clarity Urine pH Ur Specific [place] Urine Protein Urine Glucose (UA) Urine Ketones Urine Blood Urine Nitrite Urine Bilirubin Urine Urobilinogen Ur Leukocyte Esterase Urine Microscopic RBC Urine Microscopic WBC Ur Squamous Epith Cells Urine Bacteria SARS CoV-2 RNA Rapid TUCKER ] (1) Pneumonia: Status: Acute Code(s): J18.9 - Pneumonia, unspecified organism SNOMED Code(s): 630811438 Assessment: Improving on IV antibiotics. Had failed out patient antibiotics will keep on IV for the next 2 days. (2) Hypokalemia: Status: Acute Code(s): E87.6 - Hypokalemia SNOMED Code(s): 43260922 Assessment: improved. Plan: Continue current treatment
[2022-05-24] MEDS: COUMADIN PO SCH (16:04)
[2022-05-25] MEDS: SODIUM CHLORIDE 0.9%-KCL 20 MEQ 1,000 ML IV SCH ×3 (00:33→16:54)
[2022-05-25] MEDS: SOLU-MEDROL 125 MG IVP SCH ×3 (04:38→20:09)
[2022-05-25] MEDS: DUONEB NEB SCH ×4 (04:55→23:10)
[2022-05-25 05:16] LABS: BASOPHILS % (AUTO) 0.2 % (0.0-3.0); HEMOGLOBIN 11.3 g/dl (12.0-16.0); IMMATURE GRANULOCYTE # (AUTO) 0.1 (0.0-1.0); LYMPHOCYTES # (AUTO) 0.4 K/uL (0.60-3.4); LYMPHOCYTES % (AUTO) 6.9 (10.0-50.0); MEAN CORPUSCULAR HEMOGLOBIN 30.9 pg (27.0-31.0); MEAN CORPUSCULAR HGB CONC 32.3 (31.8-35.4); MEAN CORPUSCULAR VOLUME 95.6 fl (81.0-99.0); MONOCYTES # (AUTO) 0.3 K/uL (0.4-2.0); MONOCYTES % (AUTO) 4.4 (0-10); NEUTROPHILS # (AUTO) 5.4 K/ul (2.0-6.9); NEUTROPHILS % (AUTO) 87.5 % (42.2-75.2); PLATELET COUNT 156 10^3/uL (140-440); RDW COEFFICIENT OF VARIATION 14.1 % (11.6-14.8); RED BLOOD COUNT 3.66 10^6/ul (4.20-5.40); WHITE BLOOD COUNT 6.11 K/ul (4.6-10.2)
[2022-05-25 05:26] LABS: ALANINE AMINOTRANSFERASE 32.9 U/L (0-35); ALBUMIN 3.1 g/dL (3.5-5.0); ALKALINE PHOSPHATASE 58.3 U/L (53-141); ASPARTATE AMINO TRANSFERASE 30.3 U/L (14-36); BILIRUBIN,TOTAL 0.41 mg/dL (0.2-1.3); CALCIUM 8.98 mg/dL (8.4-10.2); CHLORIDE 111.7 mmol/L (98-107); CREATININE 0.61 mg/dL (0.60-1.30); GLUCOSE 164.7 mg/dL (74-106); POTASSIUM 3.79 mmol/L (3.5-5.1); SODIUM 140.1 mmol/L (134.5-145); TOTAL PROTEIN 5.54 g/dL (6.3-8.2)
[2022-05-25] MEDS: ROCEPHIN 1 GM/50 ML D5W 1 GM/50 ML BAG IV SCH (08:41)
[2022-05-25] MEDS: NORVASC PO SCH ×2 (08:42→20:05)
[2022-05-25] MEDS: LEXAPRO PO SCH (08:42)
[2022-05-25] MEDS: NEURONTIN PO SCH ×3 (08:42→20:11)
[2022-05-25] MEDS: ZITHROMAX 500 MG in SODIUM CHLORIDE 250 ML IV SCH (11:06)
--- NOTE | 2022-05-25 12:11 | PCM.PROG ---
Date Seen by Provider: 05/25/22 Time Seen by Provider: 12:09 Subjective: dx. pneumonia, copd, hypokalemia Objective: Vitals: T=97.7 F, P=81, R=20, QB=722/64, SPO2=94 HEENT: []conjunctiva clear Neck: []supple Lungs: [] no respiratory distress CVS: []rrr Abdomen: []nondistended Extremities: []warm and dry Neurological: []alert Skin: []pink Lab/Tests/Diagnostic Imaging: [] K+ 3.7 (1) Pneumonia: Status: Acute Code(s): J18.9 - Pneumonia, unspecified organism SNOMED Code(s): 535190235 (2) Hypokalemia: Status: Acute Code(s): E87.6 - Hypokalemia SNOMED Code(s): 87599790 Plan: continue Rocephin and zithromax and breathing treatments and supplemental oxygen, am labs
[2022-05-25 17:02] LABS: PROTHROMBIN TIME 14.5 SEC (9.3-11.0)
[2022-05-25] MEDS: COUMADIN PO SCH (17:10)
[2022-05-25] MEDS: XANAX PO PRN (20:09)
[2022-05-25] MEDS ORDERED: MIRALAX PO PRN (20:25)
[2022-05-25] MEDS: NORCO 5-325 PO PRN (20:54)
[2022-05-26] MEDS: SOLU-MEDROL 125 MG IVP SCH ×2 (04:46→15:13)
[2022-05-26] MEDS: SODIUM CHLORIDE 0.9%-KCL 20 MEQ 1,000 ML IV SCH ×2 (04:47→15:48)
[2022-05-26] MEDS: DUONEB NEB SCH ×4 (04:55→23:05)
[2022-05-26 05:02] LABS: BASOPHILS % (AUTO) 0.3 % (0.0-3.0); HEMATOCRIT 34.4 % (37.0-47.0); IMMATURE GRANULOCYTE # (AUTO) 0.2 (0.0-1.0); LYMPHOCYTES # (AUTO) 0.4 K/uL (0.60-3.4); LYMPHOCYTES % (AUTO) 5.9 (10.0-50.0); MEAN CORPUSCULAR VOLUME 96.9 fl (81.0-99.0); MONOCYTES # (AUTO) 0.3 K/uL (0.4-2.0); MONOCYTES % (AUTO) 3.6 (0-10); NEUTROPHILS # (AUTO) 6.3 K/ul (2.0-6.9); NEUTROPHILS % (AUTO) 87.2 % (42.2-75.2); PLATELET COUNT 187 10^3/uL (140-440); RDW COEFFICIENT OF VARIATION 14.6 % (11.6-14.8); RED BLOOD COUNT 3.55 10^6/ul (4.20-5.40); WHITE BLOOD COUNT 7.23 K/ul (4.6-10.2)
[2022-05-26 05:13] LABS: CALCIUM 9.24 mg/dL (8.4-10.2); CARBON DIOXIDE 25.2 mmol/L (22-30.0); CREATININE 0.63 mg/dL (0.60-1.30); POTASSIUM 3.82 mmol/L (3.5-5.1)
[2022-05-26 05:14] LABS: GLUCOSE 172.5 mg/dL (74-106)
[2022-05-26 05:15] LABS: CHLORIDE 113.4 mmol/L (98-107); SODIUM 141.1 mmol/L (134.5-145)
[2022-05-26] MEDS: NEURONTIN PO SCH ×3 (08:24→20:20)
[2022-05-26] MEDS: NORVASC PO SCH ×2 (08:25→20:19)
[2022-05-26] MEDS: LEXAPRO PO SCH (08:26)
[2022-05-26] MEDS: ROCEPHIN 1 GM/50 ML D5W 1 GM/50 ML BAG IV SCH (08:27)
[2022-05-26] MEDS: MIRALAX PO SCH (08:27)
--- NOTE | 2022-05-26 13:12 | PCM.PROG ---
Date Seen by Provider: 05/26/22 Time Seen by Provider: 13:09 Subjective: dx. pneumonia Objective: Vitals: T=96.4 F, P=85, R=15, GI=928/76, SPO2=97 HEENT: conjunctiva clear[] Neck: []supple Lungs: [] wheeze CVS: []rrr Abdomen: []nondistended Extremities: []left aka Neurological: []alert Skin: []pink Lab/Tests/Diagnostic Imaging: [] (1) Pneumonia: Status: Acute Code(s): J18.9 - Pneumonia, unspecified organism SNOMED Code(s): 439160924 (2) Hypokalemia: Status: Acute Code(s): E87.6 - Hypokalemia SNOMED Code(s): 57800438 Plan: stop rocephin, start oral omnicef, decrease solumedrol from 80 to 40 q8, stop iv potassium and start oral 20meq qday, discharge home tomorrow
[2022-05-26] MEDS ORDERED: LASIX IVP ONE (13:27)
[2022-05-26] MEDS: XANAX PO PRN (13:42)
[2022-05-26] MEDS: NORCO 5-325 PO PRN (17:49)
[2022-05-26] MEDS: COUMADIN PO SCH (17:52)
[2022-05-26] MEDS: SOLU-MEDROL 40 MG IVP SCH (20:31)
[2022-05-27] MEDS: DUONEB NEB SCH ×2 (04:40→11:21)
[2022-05-27] MEDS: SOLU-MEDROL 40 MG IVP SCH (04:44)
[2022-05-27 05:14] VITALS: BP 129/73; TEMP 96.3
[2022-05-27 05:14] LABS: HEMATOCRIT 36.6 % (37.0-47.0); HEMOGLOBIN 11.8 g/dl (12.0-16.0); MEAN CORPUSCULAR HEMOGLOBIN 31.1 pg (27.0-31.0); MEAN CORPUSCULAR HGB CONC 32.2 (31.8-35.4); MEAN CORPUSCULAR VOLUME 96.6 fl (81.0-99.0); PLATELET COUNT 183 10^3/uL (140-440); RDW COEFFICIENT OF VARIATION 15.2 % (11.6-14.8); RED BLOOD COUNT 3.79 10^6/ul (4.20-5.40); WHITE BLOOD COUNT 6.57 K/ul (4.6-10.2)
[2022-05-27 05:28] LABS: BLOOD UREA NITROGEN 19.3 mg/dL (7-17); CALCIUM 8.95 mg/dL (8.4-10.2); CARBON DIOXIDE 28.5 mmol/L (22-30.0); CHLORIDE 105.5 mmol/L (98-107); CREATININE 0.58 mg/dL (0.60-1.30); GLUCOSE 152.5 mg/dL (74-106); POTASSIUM 3.96 mmol/L (3.5-5.1); SODIUM 138.7 mmol/L (134.5-145)
[2022-05-27 05:31] LABS: ANISOCYTOSIS NOT PRESENT (NOT PRESENT)
[2022-05-27 05:50] LABS: PROTHROMBIN TIME 40.5 SEC (9.3-11.0)
[2022-05-27] MEDS ORDERED: K-DUR PO SCH (08:30)
--- NOTE | 2022-05-27 08:36 | PCM.PROG ---
Date Seen by Provider: 05/27/22 Time Seen by Provider: 08:00 Subjective: No complaints. Tolerating PO intake. Getting up to the chair. Objective: Vitals: T=96.3 F, P=81, R=15, DG=671/73, SPO2=97 Alert and in NAD. Breathing without distress. Somewhat confused. HEENT: [] Neck: [] Lungs: [] Chest clear. BS equal. CVS: [] RRR Abdomen: [] Soft, nontender. Extremities: [] Neurological: [] Skin: [] Lab/Tests/Diagnostic Imaging: [] (1) Pneumonia: Status: Acute Code(s): J18.9 - Pneumonia, unspecified organism SNOMED Code(s): 546565867 Assessment: Improved. (2) Hypokalemia: Status: Acute Code(s): E87.6 - Hypokalemia SNOMED Code(s): 84482000 Assessment: Corrected. Plan: Plan discharge today on PO antibiotics.
--- NOTE | 2022-05-27 08:43 | PCM.DC ---
Final Diagnosis: bilateral pneumonia hypokalemia Physical Exam Appearance: Well-appearing, No pain distress and Well-nourished Ill-appearing: None Pain Distress: None Eyes: DICK, EOMI and Conjunctiva clear ENT: Nose normal and Oropharynx normal Neck: Supple Respiratory: Airway patent, Breath sounds clear and Breath sounds equal Cardiovascular: RRR, No rub and No murmur GI/: Soft, Nontender, No masses and Bowel sounds normal Musculoskeletal: Normal strength and No edema Skin: Warm and Dry Neurological: Alert and Disoriented (somewhat confused) Psychiatric: Affect appropriate and Mood appropriate (1) Pneumonia: Status: Acute Code(s): J18.9 - Pneumonia, unspecified organism SNOMED Code(s): 408775328 (2) Hypokalemia: Status: Acute Code(s): E87.6 - Hypokalemia SNOMED Code(s): 40248061 Reason for Hospitalization: bilateral pneumonia Prognosis/Condition at Discharge: Condition at discharge was stable. Medications at Discharge: Discharged on same home medications as at admission. Education Provided to Patient and Family: pneumonia Follow-ups: Follow up with Dr Sagastume this week. Discharge Disposition: Home Hospital Course: Patient admitted with bilateral pneumonia. She also was found to be hypokalemic. Patient received IV antibiotics, neb treatments, steroids and supplemental oxygen. Her potassium deficit was replenished. Plan: Follow up with Dr Sagastume this week.
[2022-05-27] MEDS ORDERED: OMNICEF PO SCH (09:00)
[2022-05-27] MEDS: MIRALAX PO SCH (09:23)
[2022-05-27] MEDS: NORVASC PO SCH (09:24)
[2022-05-27] MEDS: NEURONTIN PO SCH (09:24)
[2022-05-27] MEDS: LEXAPRO PO SCH (09:24)
--- NOTE | 2022-05-27 10:48 | DI ---
EXAM: CHEST RADIOGRAPH TECHNIQUE: Single frontal chest radiograph. HISTORY: Shortness of breath. COMPARISON: 05/23/2022 FINDINGS: There is mild improvement in bibasilar consolidations. There is a small left effusion. There is a ri ght upper lobe calcified granuloma. The heart size is normal. The osseous structures are unremarkable. IMPRESSION: 1. Improving bibasilar consolidations
== END 2022-05-27 12:45 | disposition home or self-care (01) | DRG 195 ==
LOC: ED 15:07 → MEDSURG A 16:57
PROVIDERS: ADMIT Surgery; ATTEND Surgery
DX: Z79.01 Long term (current) use of anticoagulants; Z20.822 Contact with and (suspected) exposure to COVID-19; Z51.81 Encounter for therapeutic drug level monitoring; Z79.899 Other long term (current) drug therapy; M51.36 Other intervertebral disc degeneration, lumbar region; E87.6 Hypokalemia; Z99.81 Dependence on supplemental oxygen; Z98.890 Other specified postprocedural states; I25.10 Atherosclerotic heart disease of native coronary artery without angina pectoris; Z89.619 Acquired absence of unspecified leg above knee; R06.2 Wheezing; F32.A Depression, unspecified; Z95.828 Presence of other vascular implants and grafts; Z98.62 Peripheral vascular angioplasty status; J18.9 Pneumonia, unspecified organism; R41.0 Disorientation, unspecified; J44.9 Chronic obstructive pulmonary disease, unspecified

== ENCOUNTER 2022-07-22 09:44 | Inpatient (IN) ==
--- NOTE | 2022-07-22 10:23 | ED.PDOC ---
General ED Provider: Dr. JUNE HARDEN MD Chief Complaint: Weakness Stated Complaint: generalized weakness Time Seen by Provider: 07/22/22 10:21 Information Source: Patient Primary Care Provider: BIJAN SAGASTUME MD Nursing and Triage Documentation Reviewed and Agree: Yes Does patient meet sepsis criteria?: No System Inflammatory Response Syndrome: Not Applicable Sepsis Protocol: For patient's 13 years and over: Temp is 96.8 and below OR 101 and greater Pulse >90 BPM Resp >20/minute Acutely Altered Mental Status Are patient's symptoms suggestive of a new infection, such as: -Pneumonia -Skin, Soft Tissue -Endocarditis -UTI -Bone, Joint Infection -Implantable Device -Acute Abdominal Infection -Wound Infection -Meningitis -Blood Stream Catheter Infection -Unknown Neurological Complaint Exam Weakness Complaint/Exam Last Known Well: ~2 days Onset: Gradual Duration: ~ 2 days, progressively worsening Symptoms Are: Worse Timing: Constant Initial Severity: Mild Current Severity: Moderate Character: Reports Unable to describe Aggravating: Reports None Alleviating: Reports None Associated Signs and Symptoms: Denies Nausea or Vomiting Related History: Similar episode (recurrent UTIs with similar symptoms) CVA Risk Factors: Reports Hypertension Related Surgical History: Reports Stent (peripheral) JVD Present: No Carotid Bruit Present: No Glascow Coma Scale (see protocol): 14 Focal Weakness: Present None Focal Sensory Loss: Present None Gait: Unable (unable to assess) Differential Diagnoses: Hypovolemia, Medication reaction, Metabolic abnormalities and Other (UTI) Review of Systems Review Of Systems Constitutional: Reports No symptoms : Reports Frequency and Incontinence; Denies Pain Neurological: Reports Weakness (generalized) All Other Systems: Reviewed and Negative [facility] Medical History Family History FATHER Colon cancer Mother Colon cancer Other Pancreatic cancer Social History (Updated 07/22/22 @ 17:49 by RODNEY SMALL, RN) Smoking and tobacco status: Former smoker History of recent travel: No Surgical History Female Reproductive History Menstrual Hx Hysterectomy: No Hx Tubal Ligation: No Physical Exam Physical Exam Appearance: Reports Other (frail appearing) Ill-appearing: Mild Pain Distress: None Eyes: Reports DICK, EOMI and Conjunctiva clear ENT: Reports Ears normal and Nose normal Neck: Nonsupple (normal age-appropriate external appearance) Respiratory: Reports Airway patent, Breath sounds clear and Breath sounds diminished Cardiovascular: Reports RRR and Other (diminished) GI/: Reports Soft, Nontender and Bowel sounds normal Musculoskeletal: Reports Other (unable to fully evaluate, generalized weakness) Skin: Reports Warm and Dry Neurological: Reports Sensation intact, Motor intact, Cranial nerves intact and Alert; Denies Focal Deficit Psychiatric: Reports Other (hesitant speech pattern, confused) Interpretation EKG Interpretation Time of EKG #1: 10:51 Rate: Normal (65) Rhythm: Sinus Ectopy: PVCs (frequent (~5 beats between PVCs on ECG)) [place]: NL ST Segment: Other (very mild depression in V3-6) EKG Comparison: Other (none available for evaluation) Critical Care Note Critical Care Note Total Critical Care Time (mins): 0 Course Course 07/23/22 05:16 07/23/22 05:16 Orders, Labs, Meds: Lab Review 07/22/22 07/22/22 07/22/22 10:54 11:29 14:41 WBC 4.83 RBC 5.12 Hgb 15.7 Hct 49.1 H MCV 95.9 MCH 30.7 MCHC 32.0 RDW Coeff of Nataliya 14.3 Plt Count 121 L Immature Gran % (Auto) 0.4 Neut % (Auto) 50.1 Lymph % (Auto) 34.0 Reynolds % (Auto) 7.7 Eos % (Auto) 7.0 Baso % (Auto) 0.8 Neut # (Auto) 2.4 Lymph # (Auto) 1.6 Reynolds # (Auto) 0.4 Eos # (Auto) 0.3 Baso # (Auto) 0.0 Immature Gran # (Auto) 0.0 Sodium 140.2 Potassium 3.21 L Chloride 104.8 Carbon Dioxide 29.4 Anion Gap 9.21 BUN 15.6 Creatinine 0.77 Estimated GFR (MDRD) 71.00 BUN/Creatinine Ratio 20.25 Glucose 101.2 Calcium 9.19 Total Bilirubin 0.84 AST 27.1 ALT 16.2 Alkaline Phosphatase 69.1 Total Creatine Kinase 38.1 Troponin I < 0.012 Total Protein 7.52 Albumin 4.83 Globulin 2.69 Albumin/Globulin Ratio 1.79 Urine Color Light Urine Clarity Clear Urine pH 8.0 Ur Specific [place] 1.015 Urine Protein Negative Urine Glucose (UA) Negative Urine Ketones Negative Urine Blood 1+ H Urine Nitrite Negative Urine Bilirubin Negative Urine Urobilinogen 0.2 Ur Leukocyte Esterase Negative Urine Microscopic RBC 2-5 Urine Microscopic WBC 0-2 Ur Squamous Epith Cells 0-2 SARS CoV-2 RNA Rapid TUCKER Negative Orders Category Date Time Status ADMIT PATIENT INPATIENT .TO [facility] (MONITORED BED) ADMISSION 07/22/22 15:24 Active EKG-(ED ONLY) Stat CARDIO 07/22/22 10:42 Completed OXYGEN Routine CARDIO 07/22/22 15:29 Active ACTIVITY .BR with BRP CARE 07/22/22 15:24 Active CATHETER INSERTION AND CARE Q8HR CARE 07/22/22 15:24 Active INTAKE & OUTPUT Q8HR CARE 07/22/22 15:24 Active IP: INSERT SALINE LOCK ONCE CARE 07/22/22 15:24 Active REMINDER: Ask MD to d/c danielson DAILY CARE 07/22/22 15:28 Active TELEMETRY MONITORING TELE CARE 07/22/22 15:25 Active VITAL SIGNS Q8HR CARE 07/22/22 15:24 Active VTE PREVENTION .SCD 24 Hours CARE 07/22/22 15:29 Active VTE PREVENTION .YUKI 24 Hours CARE 07/22/22 15:29 Active CARDIAC DIET DIETARY 07/22/22 Dinner Ordered ED APPLY O2 .ONCE EMERGENCY 07/22/22 10:41 Active BASIC METABOLIC PANEL DAILY@0600 LAB 07/23/22 05:16 Completed BASIC METABOLIC PANEL DAILY@0600 LAB 07/24/22 06:00 Ordered CBC W/ AUTO DIFF DAILY@0600 LAB 07/23/22 05:16 Completed CBC W/ AUTO DIFF DAILY@0600 LAB 07/24/22 06:00 Ordered CBC W/ AUTO DIFF Stat LAB 07/22/22 10:54 Completed COMPREHENSIVE METABOLIC PANEL Stat LAB 07/22/22 10:54 Completed COVID [SARS COV-2 RNA RAPID TUCKER] Stat LAB 07/22/22 14:41 Completed CREATINE KINASE Stat LAB 07/22/22 10:54 Completed MAGNESIUM DAILY@0600 LAB 07/23/22 05:16 Completed MAGNESIUM DAILY@0600 LAB 07/24/22 06:00 Ordered PT WITH INR DAILY@0600 LAB 07/23/22 05:16 Completed PT WITH INR DAILY@0600 LAB 07/24/22 06:00 Ordered TROPONIN I Stat LAB 07/22/22 10:54 Completed UA [URINALYSIS C & S IF INDICATED] Stat LAB 07/22/22 11:29 Completed Alprazolam [Xanax] MEDS 07/22/22 13:55 Discontinued 0.5 mg PO ONCE ONE Amlodipine Besylate [Norvasc] MEDS 07/22/22 13:17 Discontinued 1.25 mg PO ONCE ONE Clonidine HCl [Catapres] MEDS 07/22/22 13:17 Discontinued 0.1 mg PO ONCE ONE Clonidine HCl [Catapres] MEDS 07/22/22 14:23 Discontinued 0.1 mg PO ONCE ONE Potassium Chloride [K-Dur] MEDS 07/22/22 13:19 Discontinued 20 meq PO ONCE ONE RESUSCITATION STATUS Routine OTHERS 07/22/22 15:24 Ordered CHEST, 1V AP ONLY Stat RADS 07/22/22 10:[address] HEAD W/O CONTRAST Stat RADS 07/22/22 10:41 Completed Medications Generic Name Dose Route Start Last Admin Trade Name Freq PRN Reason Stop Dose Admin Hydrocodone Bitart/Acetaminophen 1 tab 07/22/22 17:04 07/22/22 20:15 Hydrocodone Bit/Acetaminophen 5/325 Mg Tablet PO 1 tab TID PRN Administration Pain Alprazolam 0.5 mg 07/22/22 16:59 07/22/22 20:15 Alprazolam 0.5 Mg Tablet PO 0.5 mg TID PRN Administration Anxiety Amlodipine Besylate 2.5 mg 07/22/22 21:00 07/22/22 20:14 Amlodipine Besylate 5 Mg Tablet PO 2.5 mg BID CHUY Administration Atorvastatin Calcium 40 mg 07/22/22 21:00 07/22/22 20:15 Atorvastatin Calcium 20 Mg Tablet PO 40 mg BEDTIME CHUY Administration Escitalopram Oxalate 10 mg 07/23/22 09:00 Escitalopram Oxalate 10 Mg Tablet PO DAILY CHUY Fenofibrate 54 mg 07/23/22 09:00 Fenofibrate 54 Mg Tablet PO DAILY CHUY Furosemide 20 mg 07/22/22 17:30 07/22/22 17:57 Furosemide 20 Mg Tablet PO 20 mg MOWEFR CHUY Administration Gabapentin 100 mg 07/22/22 21:00 07/22/22 20:14 Gabapentin 100 Mg Capsule PO 100 mg TID CHUY Administration Levothyroxine Sodium 75 mcg 07/23/22 06:30 07/23/22 05:32 Levothyroxine Sodium 75 Mcg Tablet PO 75 mcg QDAC CHUY Administration Non-Formulary Medication 1 drop 07/22/22 21:00 07/23/22 06:57 Azelastine EACHEYE Not Given BID CHUY Ondansetron HCl 4 mg 07/22/22 21:00 07/22/22 20:15 Ondansetron Hcl 4 Mg Tablet PO 4 mg BID CHUY Administration Sodium Chloride 1 syr 07/22/22 21:00 07/23/22 05:00 0.9% Sodium Chloride 10 Ml Disp.Syrin IVF 1 syr Q8HR CHUY Administration Warfarin Sodium 3 mg 07/23/22 17:00 Warfarin Sodium 3 Mg Tablet PO QPM CHUY Discontinued Medications Generic Name Dose Route Start Last Admin Trade Name Freq PRN Reason Stop Dose Admin Alprazolam 0.5 mg 07/22/22 13:55 07/22/22 14:02 Alprazolam 0.5 Mg Tablet PO 07/22/22 13:56 0.5 mg ONCE ONE Administration Amlodipine Besylate 1.25 mg 07/22/22 13:17 07/22/22 13:26 Amlodipine Besylate 5 Mg Tablet PO 07/22/22 13:18 1.25 mg ONCE ONE Administration Clonidine 0.1 mg 07/22/22 13:17 07/22/22 13:26 Clonidine Hcl 0.1 Mg Tablet PO 07/22/22 13:18 0.1 mg ONCE ONE Administration Clonidine 0.1 mg 07/22/22 14:23 07/22/22 14:25 Clonidine Hcl 0.1 Mg Tablet PO 07/22/22 14:24 Not Given ONCE ONE Potassium Chloride 20 meq 07/22/22 13:19 07/22/22 13:26 Potassium Chloride 20 Meq Tab PO 07/22/22 13:20 20 meq ONCE ONE Administration Vital Signs: Temp Pulse Resp BP Pulse Ox 07/22/22 14:24 109/60 07/22/22 13:00 182/68 H 98 07/22/22 09:45 97.7 F 58 L 16 145/69 H 98 Patient presents with generalized weakness and AMS since awakening this morning. is a very poor historian. Per family, she has frequent UTIs. When present, she presents very much like today's symptoms. She is wheelchair bound. She is quite confused and hesitant of speech, and has visual hallucinations (thinks window on door is a mirror, etc.). ECG on arrival was non-acute. Labs posted, significant only for mild hypokalemia (3.21). UA was not consistent with UTI, with hematuria noted. Her pressure was elevated (170s Systolic). She was given Amlodipine, Clonidine, and Potassium Chloride to address the HTN and hypokalemia. Her daughter went to the Nurse's Station to report her mother was 'shaking unconrollably'. I went in to evaluate. She seemed quite anxious, and the shaking appeared to be a tremor. She said she has had them before, and that they run in her family. With the apparent anxiety, I decided to give a Xanax, as she is prescribed them TID PRN/ After administration, her BP normalized and the tremor ceased. I decided to call Dr Sagastume. He said her daughter called earlier today wanting her to be admitted. He said she has vascular dementia and has intermittent cloudy periods with occasional lucidity. He said the daughter changed her code status from Full Code to DNR this morning. As long as the patient is officially made DNR he would accept her to the floor with the diagnosis of 'Possible TIA'. The daughter was called to confirm code status and said 'let her go in peace'. The patient was admitted to the floor under Dr Sagastume. She was in stable condition when transported from the ED to the medical floor. Discharge Plan Discharge Patient Disposition: ADMITTED INPATIENT Discharge Problem: Altered mental status, unspecified, H/O TIA (transient ischemic attack) and stroke, Tremor, Weakness Did you review [place] [employer] for ALL controlled substances?: Not Applicable ED Provider: JUNE HARDEN Condition: Stable Physician Progress Note: []
[2022-07-22 11:03] LABS: BASOPHILS % (AUTO) 0.8 % (0.0-3.0); EOSINOPHILS # (AUTO) 0.3 K/ul (0.0-0.7); HEMATOCRIT 49.1 % (37.0-47.0); HEMOGLOBIN 15.7 g/dl (12.0-16.0); IMMATURE GRANULOCYTE % (AUTO) 0.4 % (0.0-5.0); LYMPHOCYTES # (AUTO) 1.6 K/uL (0.60-3.4); MEAN CORPUSCULAR HEMOGLOBIN 30.7 pg (27.0-31.0); MEAN CORPUSCULAR VOLUME 95.9 fl (81.0-99.0); MONOCYTES # (AUTO) 0.4 K/uL (0.4-2.0); MONOCYTES % (AUTO) 7.7 (0-10); NEUTROPHILS # (AUTO) 2.4 K/ul (2.0-6.9); NEUTROPHILS % (AUTO) 50.1 % (42.2-75.2); PLATELET COUNT 121 10^3/uL (140-440); RDW COEFFICIENT OF VARIATION 14.3 % (11.6-14.8); RED BLOOD COUNT 5.12 10^6/ul (4.20-5.40); WHITE BLOOD COUNT 4.83 K/ul (4.6-10.2)
[2022-07-22 11:13] LABS: ALANINE AMINOTRANSFERASE 16.2 U/L (0-35); ALBUMIN 4.83 g/dL (3.5-5.0); ALKALINE PHOSPHATASE 69.1 U/L (53-141); ASPARTATE AMINO TRANSFERASE 27.1 U/L (14-36); BILIRUBIN,TOTAL 0.84 mg/dL (0.2-1.3); BLOOD UREA NITROGEN 15.6 mg/dL (7-17); CALCIUM 9.19 mg/dL (8.4-10.2); CARBON DIOXIDE 29.4 mmol/L (22-30.0); CHLORIDE 104.8 mmol/L (98-107); CREATINE KINASE 38.1 U/L (30-135); CREATININE 0.77 mg/dL (0.60-1.30); GLUCOSE 101.2 mg/dL (74-106); POTASSIUM 3.21 mmol/L (3.5-5.1); SODIUM 140.2 mmol/L (134.5-145); TOTAL PROTEIN 7.52 g/dL (6.3-8.2)
[2022-07-22 11:26] LABS: TROPONIN I < 0.012 ng/ml (0.0000-0.120)
[2022-07-22 11:41] LABS: BILIRUBIN,URINE Negative (NEGATIVE); CLARITY,URINE Clear (CLEAR); COLOR,URINE Light (YELLOW); GLUCOSE, URINE (UA) Negative (NEGATIVE); KETONES,URINE Negative (NEGATIVE); LEUKOCYTE ESTERASE ,URINE Negative (NEGATIVE); NITRITE,URINE Negative (NEGATIVE); PROTEIN,URINE Negative (NEGATIVE); URINE, BLOOD 1+ (NEGATIVE); UROBILINOGEN,URINE 0.2 (0.2)
[2022-07-22 11:55] LABS: SQUAMOUS EPITHELIAL CELL,UR 0-2 (0-5); URINE WBC, MICROSCOPIC 0-2 (0-2)
--- NOTE | 2022-07-22 11:58 | DI ---
EXAM: CHEST RADIOGRAPH TECHNIQUE: Single frontal chest radiograph. HISTORY: Generalized weakness, confusion. COMPARISON: 05/27/2022 FINDINGS: Lungs/Pleura: The lungs are clear. There is no pleural effusion. There is no pneumothorax. Heart: The heart is enlarged. Bones: Bones are osteopenic. Other: Tortuosity of the descending thoracic aorta. IMPRESSION: 1. No acute process.
--- NOTE | 2022-07-22 12:09 | CT ---
EXAM: CT HEAD WITHOUT CONTRAST TECHNIQUE: Noncontrast CT of the head with multiple reformats. HISTORY: Confusion. Generalized weakness. COMPARISON: CT head 12/13/2011. FINDINGS: No evidence of acute infarction, hemorrhage, or mass. Moderate brain volume loss. Moderate to severe scattered nonspecific white matter hypodensities, lik braxton chronic microvascular changes. Atherosclerotic calcifications of the carotid siphons and vertebral arteries. No brain herniation. Patent basilar cisterns. Ventricles are proportional to brain volume. No acute osseous abnormality. Mild mucosal thickening in the paranasal sinuses. Orbits are unremarkable. IMPRESSION: No acute intracranial abnormality. Chronic findings as above. All CT scans are performed using dose optimization techniques as appropriate to the performed exam an d include at least one of the following: Automated exposure control, adjustment of the mA and/or kV according t o size, and the use of iterative reconstruction technique.
[2022-07-22] MEDS ORDERED: NORVASC PO ONE (13:17)
[2022-07-22] MEDS ORDERED: CATAPRES PO ONE ×2 (13:17→14:23)
[2022-07-22] MEDS ORDERED: K-DUR PO ONE (13:19)
[2022-07-22] MEDS ORDERED: XANAX PO ONE (13:55)
[2022-07-22 15:18] LABS: SARS COV-2 RNA RAPID NAAT NEGATIVE (NEGATIVE)
[2022-07-22] MEDS ORDERED: NORCO 5-325 PO PRN (17:04)
[2022-07-22 17:11] VITALS: BMI 23.2
[2022-07-22] MEDS ORDERED: LASIX TAB PO SCH (17:30)
[2022-07-22] MEDS: NORVASC PO SCH (20:14)
[2022-07-22] MEDS: NEURONTIN PO SCH (20:14)
[2022-07-22] MEDS: XANAX PO PRN (20:15)
[2022-07-22] MEDS: LIPITOR PO SCH (20:15)
[2022-07-22] MEDS ORDERED: ZOFRAN TAB PO SCH (21:00)
[2022-07-23 05:26] LABS: BASOPHILS % (AUTO) 0.7 % (0.0-3.0); EOSINOPHILS # (AUTO) 0.3 K/ul (0.0-0.7); EOSINOPHILS % (AUTO) 7.6 % (0.0-7.0); HEMATOCRIT 39.7 % (37.0-47.0); HEMOGLOBIN 12.9 g/dl (12.0-16.0); IMMATURE GRANULOCYTE % (AUTO) 0.2 % (0.0-5.0); LYMPHOCYTES # (AUTO) 1.5 K/uL (0.60-3.4); LYMPHOCYTES % (AUTO) 34.2 (10.0-50.0); MEAN CORPUSCULAR HEMOGLOBIN 31.4 pg (27.0-31.0); MEAN CORPUSCULAR HGB CONC 32.5 (31.8-35.4); MEAN CORPUSCULAR VOLUME 96.6 fl (81.0-99.0); MONOCYTES # (AUTO) 0.4 K/uL (0.4-2.0); MONOCYTES % (AUTO) 9.2 (0-10); NEUTROPHILS # (AUTO) 2.1 K/ul (2.0-6.9); NEUTROPHILS % (AUTO) 48.1 % (42.2-75.2); PLATELET COUNT 109 10^3/uL (140-440); RDW COEFFICIENT OF VARIATION 14.1 % (11.6-14.8); RED BLOOD COUNT 4.11 10^6/ul (4.20-5.40); WHITE BLOOD COUNT 4.33 K/ul (4.6-10.2)
[2022-07-23] MEDS: SYNTHROID PO SCH (05:32)
[2022-07-23 05:38] LABS: PROTHROMBIN TIME 25.6 SEC (9.3-11.0)
[2022-07-23 05:39] LABS: BLOOD UREA NITROGEN 15.8 mg/dL (7-17); CALCIUM 8.7 mg/dL (8.4-10.2); CARBON DIOXIDE 26.1 mmol/L (22-30.0); CHLORIDE 107.5 mmol/L (98-107); CREATININE 0.81 mg/dL (0.60-1.30); GLUCOSE 126.7 mg/dL (74-106); MAGNESIUM 2.21 mg/dL (1.6-2.3); POTASSIUM 3.7 mmol/L (3.5-5.1); SODIUM 135.9 mmol/L (134.5-145)
[2022-07-23] MEDS: NON-FORMULARY MEDICATION (Azelastine 0.05 % drops) EACHEYE SCH ×3 (06:57→20:03)
[2022-07-23] MEDS ORDERED: ZOFRAN TAB PO PRN (08:12)
[2022-07-23] MEDS: NORVASC PO SCH ×2 (08:13→20:04)
--- NOTE | 2022-07-23 08:30 | PCM.PROG ---
Attending Provider: ATTENDING PROVIDER: Dr. BIJAN ROWE MD This patient is seen with Lois Sarah, Nurse Practitioner. DATE OF SERVICE: 07/23/22 SUBJECTIVE: This 87 year old /WHITE F was hospitalized 07/22/22. Resting comfortably. She has had heart rate into the 40s and 50s, asymptomatic. Blood pressure was elevated in ER. Low end of normal here. She has been pleasant. INR today 2.5. REVIEW OF SYSTEMS: CONSTITUTIONAL: No night sweats. No fatigue, malaise, lethargy. No fever or chills. Weakness. HEENT: Eyes: No visual changes. No eye pain. No eye discharge. ENT: No runny nose. No epistaxis. No sinus pain. No odynophagia. No congestion. RESPIRATORY: No cough, no congestion. No hemoptysis. No shortness of breath. CARDIOVASCULAR: No angina symptoms. No CHF symptoms. No atypical chest pain for CAD. No palpitations. No orthopnea.Bradycardia. GASTROINTESTINAL: No abdominal pain. No nausea or vomiting. No diarrhea or constipation. No hematemesis. No hematochezia. GENITOURINARY: No urgency. No frequency. No dysuria. No hematuria. No obstructive symptoms. No discharge. No pain. No significant abnormal bleeding. MUSCULOSKELETAL: No musculoskeletal pain; no joint swelling. NEUROLOGICAL: Intermittent confusion. No headache. No neck pain. No syncope. No seizures. No dizziness. PSYCHIATRIC: Not anxious. No depression. No suicidal thoughts. No homicidal thoughts. SKIN: No rash. No lesions. No wounds. ENDOCRINE: No unexplained weight loss. No weight gain. HEMATOLOGIC/LYMPHATIC: No anemia. No purpura. No petechiae. No prolonged or excessive bleeding. No palpable lymph nodes. PHYSICAL EXAMINATION: GENERAL: The patient is awake, alert and oriented, lying in bed in no distress. VITAL SIGNS: Temperature 96.5 F, Pulse 51, Respiratory Rate 18, BP 112/56, Pulse Ox 99% HEENT: Head normocephalic, atraumatic. Eyes: Extraocular muscles are intact. Pupils are equal, round and reactive to light and accommodation. Ears: No lesions. Nose appeared normal. Throat: No exudate or erythema. NECK: Supple. No JVD, no carotid bruit. No lymphadenopathy or thyromegaly. LUNGS: Diminished breath sounds. Clear to auscultation. Percussion note normal. Chest symmetrical. HEART: S1, S2, no S3. No murmurs. No cyanosis or clubbing. No ascites. Pulses: Dorsalis pedis and posterior tibial pulses +1 to +2 both sides. ABDOMEN: Soft. Non-tender. Bowel sounds active. No CVA tenderness. No mass felt. EXTREMITIES: No edema. Full range of motion of all extremities, equal. NEUROLOGIC: No focal deficit. Cranial nerves II through XII are grossly intact. No headache. No double vision. SKIN: Not dry. Intact. Turgor-normal. LYMPHATIC: No palpable lymph nodes/no lymphedema. MUSCULOSKELETAL: Normal joints with no swelling. Muscle tone is normal. LAB REVIEW: 07/23/22 05:16 07/23/22 05:16 07/23/22 05:16: WBC 4.33 L, RBC 4.11 L, Hgb 12.9, Hct 39.7 D, MCV 96.6, MCH 31.4 H, MCHC 32.5, RDW Coeff of Nataliya 14.1, Plt Count 109 L, Immature Gran % (Auto) 0.2, Neut % (Auto) 48.1, Lymph % (Auto) 34.2, Sutter % (Auto) 9.2, Eos % (Auto) 7.6 H, Baso % (Auto) 0.7, Neut # (Auto) 2.1, Lymph # (Auto) 1.5, Sutter # (Auto) 0.4, Eos # (Auto) 0.3, Baso # (Auto) 0.0, Immature Gran # (Auto) 0.0, PT 25.6 H, INR 2.57, Sodium 135.9, Potassium 3.70, Chloride 107.5 H, Carbon Dioxide 26.1, Anion Gap 6.00, BUN 15.8, Creatinine 0.81, Estimated GFR (MDRD) 67.00, BUN/Creatinine Ratio 19.50, Glucose 126.7 H, Calcium 8.70, Magnesium 2.21 07/22/22 14:41: SARS CoV-2 RNA Rapid TUCKER Negative 07/22/22 11:29: Urine Color Light, Urine Clarity Clear, Urine pH 8.0, Ur Specific [place] 1.015, Urine Protein Negative, Urine Glucose (UA) Negative, Urine Ketones Negative, Urine Blood 1+ H, Urine Nitrite Negative, Urine Bilirubin Negative, Urine Urobilinogen 0.2, Ur Leukocyte Esterase Negative, Urine Microscopic RBC 2-5, Urine Microscopic WBC 0-2, Ur Squamous Epith Cells 0- 2 07/22/22 10:54: WBC 4.83, RBC 5.12, Hgb 15.7, Hct 49.1 H, MCV 95.9, MCH 30.7, MCHC 32.0, RDW Coeff of Nataliya 14.3, Plt Count 121 L, Immature Gran % (Auto) 0.4, Neut % (Auto) 50.1, Lymph % (Auto) 34.0, [place]utter % (Auto) 7.7, Eos % (Auto) 7.0, Baso % (Auto) 0.8, Neut # (Auto) 2.4, Lymph # (Auto) 1.6, Sutter # (Auto) 0.4, Eos # (Auto) 0.3, Baso # (Auto) 0.0, Immature Gran # (Auto) 0.0, Sodium 140.2, Pota ssium 3.21 L, Chloride 104.8, Carbon Dioxide 29.4, Anion Gap 9.21, BUN 15.6, Creatinine 0.77, Estimated GFR (MDRD) 71.00, BUN/Creatinine Ratio 20.25, Glucose 101.2, Calcium 9.19, Total Bilirubin 0.84, AST 27.1, ALT 16.2, Alkaline Phosphatase 69.1, Total Creatine Kinase 38.1, Troponin I < 0.012, Total Protein 7.52, Albumin 4.83, Globulin 2.69, Albumin/Globulin Ratio 1.79 ASSESSMENT: Please see below. 1. Possible TIA 2. Hypokalemia 3. Hypertension 4. Severe PAD 5. Bradycardia PLAN: 1. Holter monitor 2. Carotid scan 3. T4 TSH, A1c 4. Hold AM dose of Amlodipine Plan and coordination of the patient's care discussed in the presence of Companion and nurse. SCRIBED BY: Lesley ELLINGTON scribed while in presence of service performed by Lois Sarah APRN on 07/23/22 ([id number])
[2022-07-23] MEDS: LEXAPRO PO SCH (08:41)
[2022-07-23] MEDS: XANAX PO PRN ×2 (08:41→20:04)
[2022-07-23] MEDS: TRIGLIDE PO SCH (08:41)
[2022-07-23] MEDS: NEURONTIN PO SCH ×3 (08:41→20:03)
--- NOTE | 2022-07-23 10:11 | RS.SLPCNOT ---
Speech Case Note Date of Note: 07/23/22 Title: Speech consult Note: Speech consult was discussed with RN. Nursing stated she presents at her cognitive baseline as evidenced by orientation status and response to simple 'wh' questions for wants/needs. During medication administration and with breakfast tray, no swallow deficits were observed or overt s/s of aspiration audible at the bedside. The RADIO ANTENNA INSTALLER and RN determined no formal evaluation warranted at this time. Thank you for this consult.
--- NOTE | 2022-07-23 11:36 | US ---
EXAM: BILATERAL CAROTID DOPPLER 07/23/2022 HISTORY: Dizziness COMPARISON: None. FINDINGS: Duplex ultrasound including smart scale, color and spectral Doppler has been performed. An tegrade flow is present within the carotid and vertebral arteries. Bilateral atherosclerotic plaque of the right and left carotid bulb and proximal internal carotid arteries. Peak systolic velocity right common carotid artery 55 cm/sec, right internal carotid artery 87 cm/sec . This ratio is 1.6. Peak systolic velocity left common carotid artery 82 cm/sec, left internal carotid artery 68 cm/sec. This ratio 0.8. IMPRESSION: 1. Antegrade flow of the carotid and vertebral arteries. 2. Bilateral atherosclerotic plaque. 3. Bilateral internal carotid stenosis less than 50%.
[2022-07-23] MEDS: COUMADIN PO SCH (17:30)
[2022-07-23] MEDS: LIPITOR PO SCH (20:03)
[2022-07-24 04:51] LABS: BASOPHILS # (AUTO) 0.1 K/uL (0-0.2); BASOPHILS % (AUTO) 0.9 % (0.0-3.0); EOSINOPHILS # (AUTO) 0.3 K/ul (0.0-0.7); EOSINOPHILS % (AUTO) 5.3 % (0.0-7.0); HEMATOCRIT 41.1 % (37.0-47.0); HEMOGLOBIN 13.2 g/dl (12.0-16.0); IMMATURE GRANULOCYTE % (AUTO) 0.4 % (0.0-5.0); LYMPHOCYTES # (AUTO) 1.5 K/uL (0.60-3.4); LYMPHOCYTES % (AUTO) 26.7 (10.0-50.0); MEAN CORPUSCULAR HEMOGLOBIN 30.8 pg (27.0-31.0); MEAN CORPUSCULAR HGB CONC 32.1 (31.8-35.4); MONOCYTES # (AUTO) 0.5 K/uL (0.4-2.0); MONOCYTES % (AUTO) 9.2 (0-10); NEUTROPHILS # (AUTO) 3.1 K/ul (2.0-6.9); NEUTROPHILS % (AUTO) 57.5 % (42.2-75.2); PLATELET COUNT 107 10^3/uL (140-440); RDW COEFFICIENT OF VARIATION 14.3 % (11.6-14.8); RED BLOOD COUNT 4.28 10^6/ul (4.20-5.40); WHITE BLOOD COUNT 5.43 K/ul (4.6-10.2)
[2022-07-24 05:02] LABS: PROTHROMBIN TIME 20.6 SEC (9.3-11.0)
[2022-07-24 05:04] LABS: CALCIUM 8.74 mg/dL (8.4-10.2); CARBON DIOXIDE 28.7 mmol/L (22-30.0); CHLORIDE 109.3 mmol/L (98-107); CREATININE 0.74 mg/dL (0.60-1.30); GLUCOSE 105.5 mg/dL (74-106); MAGNESIUM 2.29 mg/dL (1.6-2.3); POTASSIUM 3.99 mmol/L (3.5-5.1)
[2022-07-24] MEDS: SYNTHROID PO SCH (05:32)
[2022-07-24] MEDS ORDERED: LASIX TAB PO SCH (06:30)
[2022-07-24] MEDS: NEURONTIN PO SCH ×3 (08:34→21:05)
[2022-07-24] MEDS: TRIGLIDE PO SCH (08:34)
[2022-07-24] MEDS: K-DUR PO SCH ×2 (08:35→10:36)
[2022-07-24] MEDS: NON-FORMULARY MEDICATION (Azelastine 0.05 % drops) EACHEYE SCH ×2 (08:35→21:06)
[2022-07-24] MEDS: NORVASC PO SCH ×2 (08:35→21:04)
[2022-07-24] MEDS: LEXAPRO PO SCH (08:36)
--- NOTE | 2022-07-24 10:24 | HP ---
DATE OF SERVICE: 07/22/22 REASON FOR HOSPITALIZATION: Weakness, change in the mental status, family says possibility of TIA. HISTORY OF PRESENT ILLNESS: 87 year old white female has multiple medical conditions most of them endstage. She was brought to the emergency room by family because of generalized weakness, also according to the family there was change in the mental status. The patient was seen and examined in the emergency room by ER attending, eventually ended up in the hospital with generalized weakness and possibility of TIA. CODE STATUS: DNR. 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 Weakness and fatigue. No fever or chills. HEENT: Eyes: No visual changes. No eye pain. No eye discharge. ENT: No runny nose. No epistaxis. No sinus pain. No sore throat. No odynophagia. No ear pain. No congestion. RESPIRATORY: Chronic cough, no congestion. No hemoptysis. Shortness of breath on minimal exertion.. CARDIOVASCULAR: No angina symptoms. No CHF symptoms. No atypical chest pain for CAD. No palpitations. No PND. No orthopnea. GASTROINTESTINAL: No abdominal pain. No nausea or vomiting. No diarrhea or constipation. No hematemesis. No hematochezia. Appetite hasn't been good lately. GENITOURINARY: No urgency. No frequency. No dysuria. No hematuria. No obstructive symptoms. No discharge. No pain. No significant abnormal bleeding. MUSCULOSKELETAL: No musculoskeletal pain. No joint swelling. No arthritis. Generalized aches and pains as usual. NEUROLOGICAL: No headache. No neck pain. No syncope. No seizures. No dizziness. PSYCHIATRIC: Not anxious. No depression. No suicidal thoughts. No homicidal thoughts. SKIN: No rash. No lesions. No wounds. ENDOCRINE: No unexplained weight loss. No weight gain. HEMATOLOGIC/LYMPHATIC: No anemia. No purpura. No petechiae. No prolonged or excessive bleeding. No palpable lymph nodes. PERSONAL/FAMILY/SOCIAL HISTORY: The patient lives with the daughter, she requires practically help for all activity of daily living. MEDICATIONS: Lexapro Levothyroxine Amlodipine Atorvastatin Fenofibrate Furosemide Xanax Calcium carbonate Gabapentin Hydrocodone Coumadin PHYSICAL EXAMINATION: GENERAL: The patient is oriented to time, place and person. VITAL SIGNS: Temperature 97.7, pulse 58, respiratory rate 16, blood pressure 145/69, pulse ox 98%. HEENT: Head normocephalic, atraumatic. Eyes: Extraocular muscles are intact. Pupils are equal, round and reactive to light and accommodation. Ears: No lesions. Nose appeared normal. Throat: No exudate or erythema. NECK: Supple. No JVD, no carotid bruit. No lymphadenopathy or thyromegaly. LUNGS: Clear to auscultation. Percussion note normal. Chest symmetrical. Decreased breath sounds. Mild expiratory wheeze. Good air entry. HEART: S1, S2, no S3. No murmur. No cyanosis or clubbing. No ascites. Pulses: Dorsalis pedis and posterior tibial pulses +1 to +2 bilaterally. ABDOMEN: Soft. Nontender. Bowel sounds active. No CVA tenderness. No mass felt. Sanchez Catheter. EXTREMITIES: No edema. Full range of motion of all extremities, equal. Pulse on the right side posterior tibial. Left above knee amputation. NEUROLOGIC: No focal deficit. Cranial nerves II through XII are grossly intact. No headache, no double vision or headache. SKIN: Dry. Intact. Turgor - normal. Patient looks somewhat pale. Mucous membrane dry. LYMPHATIC: No palpable lymph nodes/no lymphedema. MUSCULOSKELETAL: Normal joints with no swelling. Muscle tone is normal. LABS: Hgb 15, hct 49, WBC 4,800 normal differential, potassium 3.2, creatinine 0.7, BUN 15. Liver profile normal. U/A +1 blood, negative leukocyte esterase. EKG no acute changes ASSESSMENT: 1. Weakness, generalized could be deteriorating for medical conditions or electrolyte imbalance like hypokalemia or dehydration 2. Dementia could be vascular 3. History of frontal subdural hematoma status post fall 2021 4. Peripheral arterial disease with left above knee amputation and FEM POP bypass on the right side. 5. Severe chronic lung disease with history of smoking 6. History of CVA with left hemiparesis, 2005 7. Severe DJD of the lumbar spine 8. Neuropathy, multifactorial 9. Dyslipidemia 10.Hypertension 11.Hypothyroidism 12.Left tibial fracture 13.History of DVT 14.Depression 15.Status post left carotid endarterectomy 16.Noncompliance of lifestyle, diet and medications PLAN: 1. Admit the patient 2. Routine telemetry orders 3. Serial EKG's 4. Cardiac markers 5. CBC and CMP tomorrow 6. Potassium supplements 7. COVID negative 8. Continue Coumadin 9. Continue Amlodipine, Atorvastatin and Lexapro TIME SPENT: More than 75 minutes. MTDD
[2022-07-24] MEDS: XANAX PO PRN ×2 (14:54→21:04)
[2022-07-24] MEDS: LOTRISONE 45 GM TP PRN ×2 (14:55→21:05)
[2022-07-24] MEDS: COUMADIN PO SCH (18:05)
[2022-07-24] MEDS ORDERED: DIFLUCAN PO SCH (21:00)
[2022-07-24] MEDS: LIPITOR PO SCH (21:03)
[2022-07-25 04:56] LABS: BASOPHILS % (AUTO) 0.8 % (0.0-3.0); EOSINOPHILS # (AUTO) 0.3 K/ul (0.0-0.7); EOSINOPHILS % (AUTO) 6.3 % (0.0-7.0); HEMATOCRIT 42.1 % (37.0-47.0); HEMOGLOBIN 13.5 g/dl (12.0-16.0); IMMATURE GRANULOCYTE % (AUTO) 0.4 % (0.0-5.0); LYMPHOCYTES # (AUTO) 1.5 K/uL (0.60-3.4); LYMPHOCYTES % (AUTO) 27.9 (10.0-50.0); MEAN CORPUSCULAR HEMOGLOBIN 30.8 pg (27.0-31.0); MEAN CORPUSCULAR HGB CONC 32.1 (31.8-35.4); MEAN CORPUSCULAR VOLUME 96.1 fl (81.0-99.0); MONOCYTES # (AUTO) 0.5 K/uL (0.4-2.0); MONOCYTES % (AUTO) 10.2 (0-10); NEUTROPHILS # (AUTO) 2.8 K/ul (2.0-6.9); NEUTROPHILS % (AUTO) 54.4 % (42.2-75.2); PLATELET COUNT 119 10^3/uL (140-440); RDW COEFFICIENT OF VARIATION 14.3 % (11.6-14.8); RED BLOOD COUNT 4.38 10^6/ul (4.20-5.40)
[2022-07-25 05:09] LABS: ALANINE AMINOTRANSFERASE 54.8 U/L (0-35); ALBUMIN 3.83 g/dL (3.5-5.0); ALKALINE PHOSPHATASE 65.5 U/L (53-141); ASPARTATE AMINO TRANSFERASE 72.6 U/L (14-36); BILIRUBIN,TOTAL 0.57 mg/dL (0.2-1.3); BLOOD UREA NITROGEN 15.2 mg/dL (7-17); CALCIUM 9.21 mg/dL (8.4-10.2); CARBON DIOXIDE 28.7 mmol/L (22-30.0); CHLORIDE 107.6 mmol/L (98-107); CREATININE 0.72 mg/dL (0.60-1.30); GLUCOSE 105.9 mg/dL (74-106); POTASSIUM 4.16 mmol/L (3.5-5.1); TOTAL PROTEIN 6.01 g/dL (6.3-8.2)
[2022-07-25 05:10] LABS: PROTHROMBIN TIME 21.8 SEC (9.3-11.0)
[2022-07-25] MEDS: SYNTHROID PO SCH (05:44)
[2022-07-25 06:10] VITALS: BP 149/65; RESP 19; TEMP 97.2
[2022-07-25] MEDS ORDERED: NYSTOP POWDER TP PRN (08:06)
--- NOTE | 2022-07-25 08:50 | PCM.PROG ---
Attending Provider: ATTENDING PROVIDER: Dr. BIJAN ROWE MD This patient is seen with Lois Sarah, Nurse Practitioner. DATE OF SERVICE: 07/25/22 SUBJECTIVE: This 87 year old /WHITE F was hospitalized 07/22/22. Labs are stable. Has been eating well. Holter was taken off yesterday. No pauses noted on telemetry. Blood pressure is stable. Ready for discharge. REVIEW OF SYSTEMS: CONSTITUTIONAL: No night sweats. Fatigue. No fever or chills. Weakness. HEENT: Eyes: No visual changes. No eye pain. No eye discharge. ENT: No runny nose. No epistaxis. No sinus pain. No odynophagia. No congestion. RESPIRATORY: No cough, no congestion. No hemoptysis. No shortness of breath. CARDIOVASCULAR: No angina symptoms. No CHF symptoms. No atypical chest pain for CAD. No palpitations. No orthopnea.. GASTROINTESTINAL: No abdominal pain. No nausea or vomiting. No diarrhea or constipation. No hematemesis. No hematochezia. GENITOURINARY: No urgency. No frequency. No dysuria. No hematuria. No obstructive symptoms. No discharge. No pain. No significant abnormal bleeding. MUSCULOSKELETAL: No musculoskeletal pain; no joint swelling. NEUROLOGICAL: Awake, alert, oriented to time, place and person. No headache. No neck pain. No syncope. No seizures. No dizziness. PSYCHIATRIC: Not anxious. No depression. No suicidal thoughts. No homicidal thoughts. SKIN: No rash. No lesions. No wounds. ENDOCRINE: No unexplained weight loss. No weight gain. HEMATOLOGIC/LYMPHATIC: No anemia. No purpura. No petechiae. No prolonged or excessive bleeding. No palpable lymph nodes. PHYSICAL EXAMINATION: GENERAL: The patient is awake, alert and oriented, lying in bed in no distress. VITAL SIGNS: Temperature 97.2 F, Pulse 70, Respiratory Rate 19, BP 149/65, Pulse Ox 100% HEENT: Head normocephalic, atraumatic. Eyes: Extraocular muscles are intact. Pupils are equal, round and reactive to light and accommodation. Ears: No lesions. Nose appeared normal. Throat: No exudate or erythema. NECK: Supple. No JVD, no carotid bruit. No lymphadenopathy or thyromegaly. LUNGS: Severely diminished breath sounds. Clear to auscultation. Percussion note normal. Chest symmetrical. HEART: S1, S2, no S3. No murmurs. No cyanosis or clubbing. No ascites. Pulses: Dorsalis pedis and posterior tibial pulses +1 to +2 both sides. ABDOMEN: Soft. Non-tender. Bowel sounds active. No CVA tenderness. No mass felt. EXTREMITIES: No edema. Full range of motion of all extremities, equal. NEUROLOGIC: No focal deficit. Cranial nerves II through XII are grossly intact. No headache. No double vision. SKIN: Not dry. Intact. Turgor-normal. LYMPHATIC: No palpable lymph nodes/no lymphedema. MUSCULOSKELETAL: Normal joints with no swelling. Muscle tone is normal. LAB REVIEW: 07/25/22 04:46 07/25/22 04:46 07/25/22 04:46: WBC 5.20, RBC 4.38, Hgb 13.5, Hct 42.1, MCV 96.1, MCH 30.8, MCHC 32.1, RDW Coeff of Nataliya 14.3, Plt Count 119 L, Immature Gran % (Auto) 0.4, Neut % (Auto) 54.4, Lymph % (Auto) 27.9, [place] % (Auto) 10.2 H, Eos % (Auto) 6.3, Baso % (Auto) 0.8, Neut # (Auto) 2.8, Lymph # (Auto) 1.5, [place] # (Auto) 0.5, Eos # (Auto) 0.3, Baso # (Auto) 0.0, Immature Gran # (Auto) 0.0, PT 21.8 H, INR 2.18, Sodium 139.0, Potassium 4.16, Chloride 107.6 H, Carbon Dioxide 28.7, Anion Gap 6.86, BUN 15.2, Creatinine 0.72, Estimated GFR (MDRD) 76.00, BUN/Creatinine Ratio 21.11, Glucose 105.9, Calcium 9.21, Total Bilirubin 0.57, AST 72.6 H D, ALT 54.8 H D, Alkaline Phosphatase 65.5, Total Protein 6.01 L, Albumin 3.83, Globulin 2.18, Albumin/Globulin Ratio 1.75 ASSESSMENT: Please see below. 1. Generalized weakness 2. Severe PAD 3. History of CVA 4. Hypokalemia, resolved 5. COPD PLAN: 1. Discharge home 2. Home with Nystatin powder 3. Will followup in office next week 4. The patient would benefit from Home Health for PT/OT and nursing. She will continue to have Sanchez and will need assistance with care. Plan and coordination of the patient's care discussed in the presence of Shoe Singer and nurse. SCRIBED BY: FRANK PEOPLES [employer] Tr[employer] scribed while in presence of service performed by Lois Sarah APRN on 07/25/22 ([id number])
[2022-07-25] MEDS ORDERED: DIFLUCAN PO SCH (09:00)
[2022-07-25] MEDS: TRIGLIDE PO SCH (09:14)
[2022-07-25] MEDS: LEXAPRO PO SCH (09:15)
[2022-07-25] MEDS: XANAX PO PRN (09:15)
[2022-07-25] MEDS: NORVASC PO SCH (09:16)
[2022-07-25] MEDS: NEURONTIN PO SCH (09:16)
[2022-07-25] MEDS: NON-FORMULARY MEDICATION (Azelastine 0.05 % drops) EACHEYE SCH (09:17)
--- NOTE | 2022-07-25 14:50 | PN ---
DATE OF SERVICE: 07/23/22 SUBJECTIVE: Patient was seen and examined with the nurse practitioner. Patient's condition has improved. Patient has a CT scan of the head and also carotid scan and both were acceptable. Patient's condition is stable for now. Her appetite is fair and she had a good amount of lunch today. REVIEW OF SYSTEMS: CONSTITUTIONAL: No night sweats. No fatigue, malaise, lethargy. No fever or chills. HEENT: Eyes: No visual changes. No eye pain. No eye discharge. ENT: No runny nose. No epistaxis. No sinus pain. No sore throat. No odynophagia. No congestion. RESPIRATORY: No cough, no congestion. No hemoptysis. No shortness of breath. CARDIOVASCULAR: No angina symptoms. No CHF symptoms. No atypical chest pain for CAD. No palpitations. No PND. No orthopnea. GASTROINTESTINAL: No abdominal pain. No nausea or vomiting. No diarrhea or constipation. No hematemesis. No hematochezia. GENITOURINARY: No urgency. No frequency. No dysuria. No hematuria. No obstructive symptoms. No discharge. No pain. No significant abnormal bleeding. MUSCULOSKELETAL: No musculoskeletal pain; no joint swelling. NEUROLOGICAL: No headache. No neck pain. No syncope. No seizures. No dizziness. PSYCHIATRIC: Not anxious. No depression. No suicidal thoughts. No homicidal thoughts. SKIN: No rash. No lesions. No wounds. ENDOCRINE: No unexplained weight loss. No weight gain. HEMATOLOGIC/LYMPHATIC: No anemia. No purpura. No petechiae. No prolonged or excessive bleeding. No palpable lymph nodes. PHYSICAL EXAMINATION: GENERAL: The patient is alert and oriented to place and person. VITAL SIGNS: HEENT: Head normocephalic, atraumatic. Eyes: Extraocular muscles are intact. Pupils are equal, round and reactive to light and accommodation. Ears: No lesions. Nose appeared normal. Throat: No exudate or erythema. NECK: Supple. No JVD, no carotid bruit. No lymphadenopathy or thyromegaly. LUNGS: Clear to auscultation. Percussion note normal. Chest symmetrical. HEART: S1, S2, no S3. No murmurs. No cyanosis or clubbing. No ascites. Pulses: Dorsalis pedis and posterior tibial pulses +1 to +2 bilaterally. ABDOMEN: Soft. Nontender. Bowel sounds active. No CVA tenderness. No mass felt. EXTREMITIES: No edema. Full range of motion of all extremities, equal. NEUROLOGIC: No focal deficit. Cranial nerves II through XII are grossly intact. No headache. No double vision. SKIN: Not dry. Intact. Turgor - normal. LYMPHATIC: No palpable lymph nodes/no lymphedema. MUSCULOSKELETAL: Normal joints with no swelling. Muscle tone is normal. TIME SPENT: More than 35 minutes. Plan and coordination of the patient's care discussed in the presence of nurse. ARASH
--- NOTE | 2022-07-25 14:56 | PN ---
DATE OF SERVICE: 07/24/22 SUBJECTIVE: 87 year old white female hospitalized with possibility of TIA. Patient has no neurological deficit on physical exam for the past three days. Her appetite seems to have improved. REVIEW OF SYSTEMS: CONSTITUTIONAL: No vomiting. No fever or chills. HEENT: Eyes: No visual changes. No eye pain. No eye discharge. ENT: No runny nose. No epistaxis. No sinus pain. No sore throat. No odynophagia. No congestion. RESPIRATORY: No cough, no congestion. No hemoptysis. No shortness of breath. CARDIOVASCULAR: No chest pain. No palpitations. No PND. No orthopnea. GASTROINTESTINAL: No abdominal pain. No nausea or vomiting. No diarrhea or constipation. No hematemesis. No hematochezia. GENITOURINARY: No urgency. No frequency. No dysuria. No hematuria. No obstructive symptoms. No discharge. No pain. No significant abnormal bleeding. MUSCULOSKELETAL: No musculoskeletal pain; no joint swelling. NEUROLOGICAL: No headache. No neck pain. No syncope. No seizures. No dizziness. PSYCHIATRIC: Not anxious. No depression. No suicidal thoughts. No homicidal thoughts. SKIN: No rash. No lesions. No wounds. ENDOCRINE: No unexplained weight loss. No weight gain. HEMATOLOGIC/LYMPHATIC: No anemia. No purpura. No petechiae. No prolonged or excessive bleeding. No palpable lymph nodes. PHYSICAL EXAMINATION: GENERAL: The patient is oriented to place and person. VITAL SIGNS: Temperature 96.8, pulse 52, respiratory rate 18, blood pressure 116/66, pulse ox 100% with two liters. HEENT: Face is symmetrical. Head normocephalic, atraumatic. Eyes: Extraocular muscles are intact. Pupils are equal, round and reactive to light and accommodation. Ears: No lesions. Nose appeared normal. Throat: No exudate or erythema. NECK: Supple. LUNGS: Decreased breath sounds. Good air entry. HEART: S1, S2, no S3. ABDOMEN: Soft. EXTREMITIES: Below knee amputation. NEUROLOGIC: No focal deficit. Cranial nerves II through XII are grossly intact. No headache. No double vision. SKIN: Not dry. Intact. Turgor - normal. LYMPHATIC: No palpable lymph nodes/no lymphedema. MUSCULOSKELETAL: Normal joints with no swelling. Muscle tone is normal. LABS: Hemoglobin 13.2, hematocrit 41, WBC 5,400, normal differential, creatinine 0.7, BUN 17, potassium 3.9, EFR 74 cc/minute. ASSESSMENT: Mental status has improved with no confusion, no possibility of TIA with normal neurological status. Potassium seems to have improved. Patient probably was dehydrated. Condition: Stable. TIME SPENT: More than 35 minutes. Plan and coordination of the patient's care discussed in the presence of nurse. ARASH
--- NOTE | 2022-07-26 08:16 | HOLTER ---
PATIENT INFORMATION AND COMMENTS Attending Physician: DR. BIJAN ROWE Indications: BRADYCARDIA __ Patient Medications: ALPRAZOLAM, AMLODIPINE, ATORVASTATIN, AZELASTINE, LEXAPRO, FENOFIBRATE, IRON, FUROSEMIDE, NEURONTIN, LEVOTHYROXINE, WARFARIN __ Pre-procedure Summary: Protocol: Standard Heart Rate Started: 07/23/2022 Minimum: 47 BPM Weight: 127 LBS Ended: 07/24/2022 Maximum: 80 BPM Height: 62" Duration: 24 HRS Average: 56 BPM _ INTERPRETATIONS/OBSERVATIONS: 1. BASIC RHYTHM: SINUS, RATE 47 BPM TO 80 BPM, AVERAGE 56 BPM 2. FREQUENT PVC'S --TOTAL OF 10% OF BEATS SCANNED 3. FEW PAC'S 4. NO TACHYARRHYTHMIAS / NO PAUSES GREATER THAN 2.0 SECONDS 5. DIARY NOT AVAILABLE MTDD
--- NOTE | 2022-07-26 15:59 | PN ---
DATE OF SERVICE: 07/25/22 SUBJECTIVE: Patient was seen and examined with the nurse practitioner. Patient's condition is stable. Patient did not have a stroke. She has no neurological deficit. Her appetite seems to be improving and her mental status has improved. REVIEW OF SYSTEMS: CONSTITUTIONAL: No night sweats. No fatigue, malaise, lethargy. No fever or chills. HEENT: Eyes: No visual changes. No eye pain. No eye discharge. ENT: No runny nose. No epistaxis. No sinus pain. No sore throat. No odynophagia. No congestion. RESPIRATORY: No cough, no congestion. No hemoptysis. No shortness of breath. CARDIOVASCULAR: No angina symptoms. No CHF symptoms. No atypical chest pain for CAD. No palpitations. No PND. No orthopnea. GASTROINTESTINAL: No abdominal pain. No nausea or vomiting. No diarrhea or constipation. No hematemesis. No hematochezia. GENITOURINARY: No urgency. No frequency. No dysuria. No hematuria. No obstructive symptoms. No discharge. No pain. No significant abnormal bleeding. MUSCULOSKELETAL: No musculoskeletal pain; no joint swelling. NEUROLOGICAL: No headache. No neck pain. No syncope. No seizures. No dizziness. PSYCHIATRIC: Not anxious. No depression. No suicidal thoughts. No homicidal thoughts. SKIN: No rash. No lesions. No wounds. ENDOCRINE: No unexplained weight loss. No weight gain. HEMATOLOGIC/LYMPHATIC: No anemia. No purpura. No petechiae. No prolonged or excessive bleeding. No palpable lymph nodes. PHYSICAL EXAMINATION: GENERAL: The patient is in no distress. HEENT: Head normocephalic, atraumatic. Eyes: Extraocular muscles are intact. Pupils are equal, round and reactive to light and accommodation. Ears: No lesions. Nose appeared normal. Throat: No exudate or erythema. NECK: Supple. No JVD, no carotid bruit. No lymphadenopathy or thyromegaly. LUNGS: Clear to auscultation. Percussion note normal. Chest symmetrical. HEART: S1, S2, no S3. No murmurs. No cyanosis or clubbing. No ascites. Pulses: Dorsalis pedis and posterior tibial pulses +1 to +2 bilaterally. ABDOMEN: Soft. Nontender. Bowel sounds active. No CVA tenderness. No mass felt. EXTREMITIES: No edema. Full range of motion of all extremities, equal. NEUROLOGIC: No focal deficit. Cranial nerves II through XII are grossly intact. No headache. No double vision. SKIN: Not dry. Intact. Turgor - normal. LYMPHATIC: No palpable lymph nodes/no lymphedema. MUSCULOSKELETAL: Normal joints with no swelling. Muscle tone is normal. TIME SPENT: More than 35 minutes. Plan and coordination of the patient's care discussed in the presence of nurse. ARASH
--- NOTE | 2022-09-05 13:23 | DS ---
DATE OF SERVICE: 07/25/22 FINAL DIAGNOSIS: 1. Hypokalemia which is now resolved 2. Generalized weakness 3. Severe PAD 4. COPD DISCHARGE INSTRUCTIONS: Followup with Dr. Sagastume's office on August 02 at 1:40pm. MEDICATIONS AT DISCHARGE: Lexapro Levothyroxine Amlodipine Atorvastatin Fenofibrate Furosemide Xanax Calcium carbonate Gabapentin Hydrocodone Coumadin NEW PRESCRIPTIONS: Nystatin powder to be applied as needed under breast, abdominal folds, and groin area. DIET INSTRUCTIONS: Resume regular diet ACTIVITY: Resume activity as tolerated, home health with physical therapy and occupational therapy HOSPITAL COURSE: This is a 87 year old white female who presented to the emergency room with extreme weakness, who was noted that her Potassium was low, U/A was abnormal with positive blood. She has had some hallucinations with increased confusion. Potassium is 3.2. Blood pressure was elevated with 170 systolic. She was admitted. CT brain was normal. We supplemented Potassium and started on Antibiotics for possible UTI. Carotids were done which again were normal. She was given IV fluids. Urine culture came back normal. At time of discharge she is back to baseline mentally. She will benefit from PT/OT. She will continue to have Sanchez and followup in the office next week. TIME SPENT: 70 minutes ARASH
== END 2022-07-25 14:10 | disposition home health service (06) | DRG 641 ==
LOC: ED 09:44 → MEDSURG A 15:34
PROVIDERS: ADMIT Internal Medicine; ATTEND Internal Medicine
DX: Z86.711 Personal history of pulmonary embolism; F32.A Depression, unspecified; Z51.81 Encounter for therapeutic drug level monitoring; Z98.890 Other specified postprocedural states; Z66 Do not resuscitate; E87.6 Hypokalemia; G45.9 Transient cerebral ischemic attack, unspecified; R53.1 Weakness; R25.1 Tremor, unspecified; R41.82 Altered mental status, unspecified; Z20.822 Contact with and (suspected) exposure to COVID-19; M51.36 Other intervertebral disc degeneration, lumbar region; Z89.612 Acquired absence of left leg above knee; E78.5 Hyperlipidemia, unspecified; Z79.01 Long term (current) use of anticoagulants; I73.9 Peripheral vascular disease, unspecified; Z96.0 Presence of urogenital implants; J44.9 Chronic obstructive pulmonary disease, unspecified; Z87.440 Personal history of urinary (tract) infections; Z95.820 Peripheral vascular angioplasty status with implants and grafts; I10 Essential (primary) hypertension; Z86.73 Personal history of transient ischemic attack (TIA), and cerebral infarction without residual deficits; G62.9 Polyneuropathy, unspecified; Z79.899 Other long term (current) drug therapy

== ENCOUNTER 2023-02-03 09:27 | Inpatient (IN) ==
--- NOTE | 2023-02-03 09:40 | ED.PDOC ---
General ED Provider: Dr. BROOKE TOWNSEND DO Chief Complaint: Respiratory Complaint Stated Complaint: Patient is a 87 yo F here for cough and duaghter concern for pneumonia patient arrives aferbile hypoxic at 85% on prescribed nasal canula Patient speaking in full senteces Patient alert and oriented x4 GCS 15 Patient pleasant to speak with She complains of productive cough with yellow sputum, no chest paiun,. no hemoptysis Time Seen by Provider: 02/03/23 09:29 Primary Care Provider: BIJAN ROWE MD Nursing and Triage Documentation Reviewed and Agree: Yes Review of Systems Review Of Systems Constitutional: Denies Chills or Fever Eyes: Denies Blindness or Foreign body sensation Ears, Nose, Mouth, Throat: Denies Ear pain, Ear discharge or Nose pain Respiratory: Reports Cough and Shortness of Breath; Denies Wheezing Cardiac: Denies Chest pain, Edema or Irregular heart rate GI: Denies Abdomen distended, Diarrhea or Difficulty swallowing : Denies Burning, Dysuria or Discharge Musculoskeletal: Denies Back pain, Muscle stiffness or Neck pain Skin: Denies Bruising or Rash Neurological: Denies Anxiety or Depressed Endocrine: Reports No symptoms Hematologic/Lymphatic: Reports No symptoms All Other Systems: Reviewed and Negative [facility] Medical History (Updated 02/03/23 @ 12:09 by BROOKE TOWNSEND DO) Dysuria R30.0 - Dysuria (ICD-10) Tremor R25.1 - Tremor, unspecified (ICD-10) Palpitations R00.2 - Palpitations (ICD-10) Cardiac arrhythmia I49.9 - Cardiac arrhythmia, unspecified (ICD-10) Hypokalemia E87.6 - Hypokalemia (ICD-10) Pneumonia J18.9 - Pneumonia, unspecified organism (ICD-10) Depression F32.9 - Major depressive disorder, single episode, unspecified (ICD-10) CAD (coronary artery disease) I25.10 - Atherosclerotic heart disease of [place] coronary artery without angina pectoris (ICD-10) Ovarian cyst N83.20 - Unspecified ovarian cysts (ICD-10) Family History FATHER Colon cancer Mother Colon cancer Other Pancreatic cancer Social History (Updated 12/24/22 @ 13:14 by MARIBEL SNOW) Smoking and tobacco status: Former smoker Tobacco: How many years used: 50 How long ago did patient quit smoking: Quit age 69 Second hand smoke exposure: Yes Alcohol intake: never Substance use type: does not use Household members: children Housing: house Marital status: W / Lives independently: Yes (daughter) Number of children: 4 Current occupational status: retired History of recent travel: No Current gender identity: female Seatbelt use: always Water heater temperature set < 120 degrees: Yes Working smoke detector in home: Yes Fire extinguisher in home: Yes Carbon monoxide detector in home: Yes Surgical History (Updated 12/24/22 @ 13:12 by MANUELA PERKINS APRN) History of intravascular stent placement L leg 12/10 Z95.828 - Presence of other vascular implants and grafts (ICD-10) Female Reproductive History Menstrual Hx Hysterectomy: No Hx Tubal Ligation: No Physical Exam Physical Exam Appearance: Reports Well-appearing and Well-nourished Ill-appearing: Not Applicable Pain Distress: Not Applicable Eyes: Reports DICK, EOMI and Conjunctiva clear ENT: Reports Ears normal, Nose normal, Oropharynx normal and Other (Moist oral mucosa, uvula midline) Neck: Supple Respiratory: Reports Airway patent and Breath sounds clear; Denies Rhonchi, Wheezes or Retractions Cardiovascular: Reports RRR and Pulses normal GI/: Reports Soft, Nontender and Other (Sanchez catheter in place) Musculoskeletal: Reports Normal strength, ROM intact and Other (L BKA) Skin: Reports Warm and Dry Neurological: Reports Sensation intact and Motor intact Psychiatric: Reports Affect appropriate and Mood appropriate Interpretation EKG Interpretation EKG Interpretation By: ED Physician Time of EKG #1: 09:45 Interpretation: NSR rate 80 no stemi, lateral st depression similar to previous qt wnl Critical Care Note Critical Care Note Total Critical Care Time (mins): 0 Course Course 02/03/23 09:42 02/03/23 09:42 Orders, Labs, Meds: Lab Review 02/03/23 02/03/23 02/03/23 09:37 09:40 09:42 WBC 6.36 RBC 5.22 Hgb 15.4 Hct 49.2 H MCV 94.3 MCH 29.5 MCHC 31.3 L RDW Coeff of Nataliya 14.1 Plt Count 127 L Immature Gran % (Auto) 0.3 Neut % (Auto) 59.8 Lymph % (Auto) 30.3 [place] % (Auto) 9.1 Eos % (Auto) 0.2 Baso % (Auto) 0.3 Neut # (Auto) 3.8 Lymph # (Auto) 1.9 [place] # (Auto) 0.6 Eos # (Auto) 0.0 Baso # (Auto) 0.0 Immature Gran # (Auto) 0.0 PT 11.3 H INR 1.09 Puncture Site [employer] Excess 2.2 O2 Saturation 79.2 L ABG pH 7.39 ABG pCO2 45.0 ABG pO2 44.0 L* ABG HCO3 27.2 ABG Total CO2 28.6 H Micheal Test Pos Hemoglobin 1.1 Oxyhemoglobin 78.3 L Carboxyhemoglobin 1.7 H Total Hemoglobin 15.9 FiO2 % 21.0 Sodium 137.9 Potassium 3.61 Chloride 100.8 Carbon Dioxide 28.7 Anion Gap 12.01 BUN 15.2 Creatinine 0.83 Estimated GFR (MDRD) 65.00 BUN/Creatinine Ratio 18.31 Glucose 116.0 H Lactic Acid 2.46 H Calcium 10.04 Total Bilirubin 1.14 AST 51.0 H ALT 29.1 Alkaline Phosphatase 57.2 Troponin I < 0.012 Total Protein 7.76 Albumin 4.61 Globulin 3.15 Albumin/Globulin Ratio 1.46 Influ A Molecular Assay Negative by naat Influ B Molecular Assay Negative by naat RSV Antigen Negative by naat SARS CoV-2 RNA Rapid TUCKER Positive H Orders Category Date Time Status ADMIT PATIENT INPATIENT .TO [facility] (MONITORED BED) ADMISSION 02/03/23 12:10 Active ABG DRAW REQUEST Stat CARDIO 02/03/23 09:30 Completed EKG-(ED ONLY) Stat CARDIO 02/03/23 09:30 Completed OXYGEN Routine CARDIO 02/03/23 12:14 Ordered ACTIVITY .Up With Assistance CARE 02/03/23 12:13 Active INTAKE & OUTPUT Q8HR CARE 02/03/23 12:13 Active NPO REMINDER: IMAGING ONCE CARE 02/03/23 10:35 Completed TELEMETRY MONITORING TELE CARE 02/03/23 12:10 Active VITAL SIGNS Q4HR CARE 02/03/23 12:13 Active CARDIAC DIET DIETARY 02/03/23 Lunch Ordered ABG COOX Stat LAB 02/03/23 09:37 Completed CBC W/ AUTO DIFF DAILY@0600 LAB 02/04/23 06:00 Ordered CBC W/ AUTO DIFF DAILY@0600 LAB 02/05/23 06:00 Ordered CBC W/ AUTO DIFF Stat LAB 02/03/23 09:42 Completed COMPREHENSIVE METABOLIC PANEL DAILY@0600 LAB 02/04/23 06:00 Ordered COMPREHENSIVE METABOLIC PANEL DAILY@0600 LAB 02/05/23 06:00 Ordered COMPREHENSIVE METABOLIC PANEL Stat LAB 02/03/23 09:42 Completed FLU A & B MOLECULAR [FLU A/B MOLECULAR] Stat LAB 02/03/23 09:40 Completed LACTIC ACID Stat LAB 02/03/23 09:42 Completed PT WITH INR Stat LAB 02/03/23 09:42 Completed RSV Stat LAB 02/03/23 09:40 Completed SARS COV-2 RNA RAPID TUCKER Stat LAB 02/03/23 09:40 Completed TROPONIN I Stat LAB 02/03/23 09:42 Completed Acetaminophen [Tylenol] Meds 02/03/23 12:13 Ordered 650 mg PO Q4H PRN Dexamethasone Sod Phosphate [Decadron] Meds 02/04/23 09:00 Ordered 6 mg IVP DAILY Dexamethasone Sod Phosphate [Decadron] Meds 02/03/23 11:18 Discontinued 6 mg IVP ONCE ONE Ondansetron HCl/Pf [Zofran 4 mg/2 ml] Meds 02/03/23 12:13 Ordered 4 mg IVP Q6H PRN CT CHEST PE PROTOCOL Stat RADS 02/03/23 10:35 Completed CXR [CHEST, 2 VIEWS PA & LAT] Stat RADS 02/03/23 09:31 Completed Medications Generic Name Dose Route Start Last Admin Trade Name Lory PRN Reason Stop Dose Admin Acetaminophen 650 mg 02/03/23 12:13 Acetaminophen 325 Mg Tablet PO Q4H PRN Mild Pain Dexamethasone Sodium Phosphate 6 mg 02/04/23 09:00 Dexamethasone Sod Phos 10 Mg/Ml Inj IVP DAILY CHUY Ondansetron HCl 4 mg 02/03/23 12:13 Ondansetron Hcl/Pf 4 Mg/2 Ml Sdv IVP Q6H PRN Nausea / Vomiting Discontinued Medications Generic Name Dose Route Start Last Admin Trade Name Freq PRN Reason Stop Dose Admin Dexamethasone Sodium Phosphate 6 mg 02/03/23 11:18 02/03/23 11:32 Dexamethasone Sod Phos 10 Mg/Ml Inj IVP 02/03/23 11:19 6 mg ONCE ONE Administration Vital Signs: Temp Pulse Resp BP Pulse Ox O2 Flow Rate 02/03/23 09:45 2 02/03/23 09:32 97.5 F L 94 20 195/94 H 84 L MDM: Patient is a 87 yo F here for weakness and cough patient afebrile but hypoxic to 80% on 2 L NC prescribed, 92% on 4 L NC Patient speaking in full sentences Exam reassuring Hx from patient chart review by me 3+ labs and 3 images reviewed by me WDX: Covid 19, hypoxia, cough, discomfort acute high complexity DDX: I considered stemi, PE, sepsis but these are less likely Patient amenable to plan SDOH: Patient will improve with therapies, admission All questions answered Discharge Plan Discharge Patient Disposition: ADMITTED INPATIENT Discharge Problem: COVID-19, Discomfort, Cough, Hypoxia Did you review [place] [address] ATTENDANT for ALL controlled substances?: Not Applicable ED Provider: BROOKE TOWNSEND Condition: Good Physician Progress Note: []
[2023-02-03 09:41] LABS: ABG O2 HGB 78.3 % (95-100); ABG PH 7.39 (7.35-7.45); BEecf 2.2 (-2.0-3.0); COHb 1.7 (0.5-1.5); HCO3 27.2 (21-28); MetHb 1.1 (0-1.5); TCO2 28.6 (19-24); sO2 79.2 % (94-98); tHb 15.9 g/dl (11.7-17.4)
[2023-02-03 09:57] LABS: BASOPHILS % (AUTO) 0.3 % (0.0-3.0); EOSINOPHILS % (AUTO) 0.2 % (0.0-7.0); HEMATOCRIT 49.2 % (37.0-47.0); HEMOGLOBIN 15.4 g/dl (12.0-16.0); IMMATURE GRANULOCYTE % (AUTO) 0.3 % (0.0-5.0); LYMPHOCYTES # (AUTO) 1.9 K/uL (0.60-3.4); LYMPHOCYTES % (AUTO) 30.3 (10.0-50.0); MEAN CORPUSCULAR HEMOGLOBIN 29.5 pg (27.0-31.0); MEAN CORPUSCULAR HGB CONC 31.3 (31.8-35.4); MEAN CORPUSCULAR VOLUME 94.3 fl (81.0-99.0); MONOCYTES # (AUTO) 0.6 K/uL (0.4-2.0); MONOCYTES % (AUTO) 9.1 (0-10); NEUTROPHILS # (AUTO) 3.8 K/ul (2.0-6.9); NEUTROPHILS % (AUTO) 59.8 % (42.2-75.2); PLATELET COUNT 127 10^3/uL (140-440); RDW COEFFICIENT OF VARIATION 14.1 % (11.6-14.8); RED BLOOD COUNT 5.22 10^6/ul (4.20-5.40); WHITE BLOOD COUNT 6.36 K/ul (4.6-10.2)
[2023-02-03 10:10] LABS: PROTHROMBIN TIME 11.3 SEC (9.3-11.0)
[2023-02-03 10:11] LABS: ALANINE AMINOTRANSFERASE 29.1 U/L (0-35); ALBUMIN 4.61 g/dL (3.5-5.0); ALKALINE PHOSPHATASE 57.2 U/L (53-141); BILIRUBIN,TOTAL 1.14 mg/dL (0.2-1.3); BLOOD UREA NITROGEN 15.2 mg/dL (7-17); CALCIUM 10.04 mg/dL (8.4-10.2); CARBON DIOXIDE 28.7 mmol/L (22-30.0); CHLORIDE 100.8 mmol/L (98-107); CREATININE 0.83 mg/dL (0.60-1.30); SODIUM 137.9 mmol/L (134.5-145); TOTAL PROTEIN 7.76 g/dL (6.3-8.2)
[2023-02-03 10:22] LABS: POTASSIUM 3.61 mmol/L (3.5-5.1); TROPONIN I < 0.012 ng/ml (0.0000-0.120)
--- NOTE | 2023-02-03 10:31 | DI ---
EXAM: CHEST RADIOGRAPH TECHNIQUE: Two views of the chest. COMPARISON: 07/22/2022 HISTORY: Cough FINDINGS: The heart and mediastinum are stable. Mild bibasilar atelectasis is grossly unchanged. The lungs and pleural spaces are stable. No pneumothorax. Stable calcified granulomas. No acute abnormality of the bones or soft tissues is identified. IMPRESSION: No evidence of acute disease.
[2023-02-03 10:35] LABS: MOLECULAR FLU A NEGATIVE BY NAAT (NEGATIVE); MOLECULAR FLU B NEGATIVE BY NAAT (NEGATIVE); RSV MOLECULAR NEGATIVE BY NAAT (NEGATIVE)
[2023-02-03 10:36] LABS: SARS COV-2 RNA RAPID NAAT POSITIVE (NEGATIVE)
[2023-02-03] MEDS ORDERED: DECADRON IVP ONE (11:18)
--- NOTE | 2023-02-03 11:18 | PCM ---
Date of Service Date Seen by Provider: 02/03/23 Time Seen by Provider: : Admit Day/Time Admission Date: 02/03/23 Admission Time: 12:10 Reason for Admission Chief Complaint: COVID, HYPOXIC Hospital Provider Hospital Provider: Frank Bowser PA-C , [facility] Primary Care Physician Primary Care Physician: BIJAN SAGASTUME MD History of Present Illness History of Present Illness: Patient is a 87 year old female from home with pmhx of hyperlipidemia, anemia, TIAN, osteoarthritis, hypothyroidism, h/x CVA/subdural hemorrhage, COPD, PAD, DVT who presented to ER with cc of sob and low O2. Patient had low O2 at home in the 80s. Patient 84% in ER and was placed on 4L. She wears 2L at baseline at home. She was found to be covid positive. She denies hx of covid vaccines. She states she had n/v two nights ago. CXR and CTA chest in ER negative for acute findings. She was given dexamethasone. Discussed with pt risks vs benefits of remdesivir. She would like to proceed. 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 Takes warfarin. Case Discussed With Case Discussed With: Patient's case was discussed with the ER Physicians, Dr. Stout. [facility] Medical History Dysuria R30.0 - Dysuria (ICD-10) Tremor R25.1 - Tremor, unspecified (ICD-10) Palpitations R00.2 - Palpitations (ICD-10) Cardiac arrhythmia I49.9 - Cardiac arrhythmia, unspecified (ICD-10) Hypokalemia E87.6 - Hypokalemia (ICD-10) Pneumonia J18.9 - Pneumonia, unspecified organism (ICD-10) Depression F32.9 - Major depressive disorder, single episode, unspecified (ICD-10) CAD (coronary artery disease) I25.10 - Atherosclerotic heart disease of [place] coronary artery without angina pectoris (ICD-10) Ovarian cyst N83.20 - Unspecified ovarian cysts (ICD-10) Surgical History History of intravascular stent placement L leg 12/10 Z95.828 - Presence of other vascular implants and grafts (ICD-10) Family History FATHER Colon cancer Mother Colon cancer Other Pancreatic cancer Social History Smoking and tobacco status: Former smoker Tobacco: How many years used: 50 How long ago did patient quit smoking: Quit age 69 Second hand smoke exposure: Yes Alcohol intake: never Substance use type: does not use Household members: children Housing: house Marital status: W / Lives independently: Yes (daughter) Number of children: 4 Current occupational status: retired History of recent travel: No Current gender identity: female Seatbelt use: always Water heater temperature set < 120 degrees: Yes Working smoke detector in home: Yes Fire extinguisher in home: Yes Carbon monoxide detector in home: Yes Allergies Allergies Allergy/AdvReac Type Severity Reaction Status Date / Time denosumab [From Prolia] AdvReac Unknown Verified 02/03/23 09:36 propoxyphene HCl AdvReac Unknown Verified 02/03/23 09:36 [From Darvon] Current Medications Home Medications azelastine 0.05 % eye drops 1 drp BOTHEYES BID 05/23/22 [History Confirmed 02/03/23 Last Taken 07/21/22 21:00] nystatin 100,000 unit/gram topical powder (Nystop) 1 applic topical QID PRN Redness #15 grams 07/25/22 [Rx Confirmed 02/03/23 Last Taken Unknown] C.COMMODE #1 ea 10/15/22 [Rx Confirmed 02/03/23 Last Taken Unknown] clotrimazole-betamethasone 1 %-0.05 % topical cream 1 applic topical BID #15 grams 11/11/22 [Rx Confirmed 02/03/23 Last Taken Unknown] fenofibrate 54 mg tablet See Rx Instructions .Route .COMPLEX #30 tabs 12/05/22 [Rx Confirmed 02/03/23 Last Taken Unknown] alprazolam 0.5 mg tablet 0.5 mg PO TID PRN Anxiety/Restlessness #90 tabs 01/02/23 [Rx Confirmed 02/03/23 Last Taken Unknown] amlodipine 2.5 mg tablet See Rx Instructions .Route .COMPLEX #60 tabs 01/02/23 [Rx Confirmed 02/03/23 Last Taken Unknown] atorvastatin 40 mg tablet See Rx Instructions .Route .COMPLEX #30 tabs 01/02/23 [Rx Confirmed 02/03/23 Last Taken Unknown] calcium carbonate 600 mg-vitamin D3 10 mcg (400 unit) tablet See Rx Instructions .Route .COMPLEX #60 tabs 01/02/23 [Rx Confirmed 02/03/23 Last Taken Unknown] cetirizine 10 mg tablet (Allergy Relief (cetirizine)) See Rx Instructions .Route .COMPLEX #30 ea 01/02/23 [Rx Confirmed 02/03/23 Last Taken Unknown] ferrous sulfate 325 mg (65 mg iron) tablet (FeroSul) See Rx Instructions .Route .COMPLEX #30 tabs 01/02/23 [Rx Confirmed 02/03/23 Last Taken Unknown] furosemide 20 mg tablet See Rx Instructions .Route .COMPLEX #12 tabs 01/02/23 [Rx Confirmed 02/03/23 Last Taken Unknown] gabapentin 100 mg capsule See Rx Instructions .Route .COMPLEX #120 caps 01/02/23 [Rx Confirmed 02/03/23 Last Taken Unknown] ondansetron HCl 4 mg tablet See Rx Instructions .Route .COMPLEX #20 tabs 01/02/23 [Rx Confirmed 02/03/23 Last Taken Unknown] warfarin 3 mg tablet See Rx Instructions .Route .COMPLEX #90 tabs 01/02/23 [Rx Confirmed 02/03/23 Last Taken Unknown] escitalopram oxalate 10 mg tablet See Rx Instructions .Route .COMPLEX #30 tabs 01/30/23 [Rx Confirmed 02/03/23 Last Taken Unknown] hydrocodone 5 mg-acetaminophen 325 mg tablet 1 tab PO TID PRN Pain, Moderate #90 tabs 01/30/23 [Rx Confirmed 02/03/23 Last Taken Unknown] levothyroxine 75 mcg tablet See Rx Instructions .Route .COMPLEX #30 tabs 01/30/23 [Rx Confirmed 02/03/23 Last Taken Unknown] potassium chloride 10 mEq tablet,extended release(part/cryst) See Rx Instructions .Route .COMPLEX #12 tabs 01/30/23 [Rx Confirmed 02/03/23 Last Taken Unknown] Home Acetaminophen (Acetaminophen 325 Mg Tablet) 650 mg PO Q4H PRN PRN Reason: Mild Pain Dexamethasone Sodium Phosphate (Dexamethasone Sod Phos 10 Mg/Ml Inj) 6 mg IVP DAILY CHUY Remdesivir 100 mg/ Sodium (Chloride) 100 mls @ 200 mls/hr IV 1200 CHUY Stop: 02/07/23 12:29 Ondansetron HCl (Ondansetron Hcl/Pf 4 Mg/2 Ml Sdv) 4 mg IVP Q6H PRN PRN Reason: Nausea / Vomiting Discontinued Medications Dexamethasone Sodium Phosphate (Dexamethasone Sod Phos 10 Mg/Ml Inj) 6 mg IVP ONCE ONE Stop: 02/03/23 11:19 Last Admin: 02/03/23 11:32 Dose: 6 mg Remdesivir 200 mg/ Sodium (Chloride) 250 mls @ 250 mls/hr IV ONCE ONE Stop: 02/03/23 14:19 Last Admin: 02/03/23 14:34 Dose: 250 mls/hr Review of Systems Constitutional: Reports Weakness; Denies Fever Head: Reports Normocephalic and Atraumatic Cardiovascular: Denies Chest pain, Chest Pressure or Edema Respiratory: Reports Cough and Shortness of air Gastrointestinal: Denies Nausea, Vomiting, Diarrhea, Abdominal pain or Melena Genitourinary: Denies Dysuria Neurological: Reports Weakness Physical examination Most Recent Vital Signs: Most Recent Vital Signs Temperature 97.5 F L 02/03/23 09:32 Temperature Source Oral 02/03/23 09:32 Pulse Rate 94 02/03/23 09:32 Respiratory Rate 20 02/03/23 09:32 Blood Pressure 195/94 H 02/03/23 09:32 O2 Sat by Pulse Oximetry 84 L 02/03/23 09:32 Oxygen Flow Rate 2 02/03/23 09:45 Height 5 ft 2 in 02/03/23 09:32 Weight 133 lb 2.547 oz 02/03/23 09:32 Telemetry Heart Rate 54 L 07/25/22 07:00 Telemetry SPO2 97 05/27/22 07:00 Appearance: Positive No Apparent Distress and Alert and Oriented x3 Skin: Positive [place], Warm and Good Turgor; Negative Rashes HEENT: Positive Normocephalic and Atraumatic Neck: Positive Supple and Midline Trachea Chest/Lungs: Positive Clear to Auscultation Bilaterally; Negative Rales, Rhonci or Wheezes Heart: Positive RRR GI/: Positive Soft, Nontender, Bowel Sounds Normal and No Distention Musculoskeletal: Positive Other (+Left AKA, right lower ext no edema. ) Extremities: Positive Amputations (Left AKA); Negative Edema Neurological: Positive Cranial Nerves Intact, Alert, Oriented and Other (+generalized weakness ) Psychiatric: Positive Oriented x4, Appropriate Mood and Appropriate Affect Labs This Visit Labs This Visit: Labs This Visit 02/03/23 02/03/23 02/03/23 09:37 09:40 09:42 WBC 6.36 RBC 5.22 Hgb 15.4 Hct 49.2 H MCV 94.3 MCH 29.5 MCHC 31.3 L RDW Coeff of Nataliya 14.1 Plt Count 127 L Immature Gran % (Auto) 0.3 Neut % (Auto) 59.8 Lymph % (Auto) 30.3 [place] % (Auto) 9.1 Eos % (Auto) 0.2 Baso % (Auto) 0.3 Neut # (Auto) 3.8 Lymph # (Auto) 1.9 [place] # (Auto) 0.6 Eos # (Auto) 0.0 Baso # (Auto) 0.0 Immature Gran # (Auto) 0.0 PT 11.3 H INR 1.09 Puncture Site [employer] Excess 2.2 O2 Saturation 79.2 L ABG pH 7.39 ABG pCO2 45.0 ABG pO2 44.0 L* ABG HCO3 27.2 ABG Total CO2 28.6 H Micheal Test Pos Hemoglobin 1.1 Oxyhemoglobin 78.3 L Carboxyhemoglobin 1.7 H Total Hemoglobin 15.9 FiO2 % 21.0 Sodium 137.9 Potassium 3.61 Chloride 100.8 Carbon Dioxide 28.7 Anion Gap 12.01 BUN 15.2 Creatinine 0.83 Estimated GFR (MDRD) 65.00 BUN/Creatinine Ratio 18.31 Glucose 116.0 H Lactic Acid 2.46 H Calcium 10.04 Total Bilirubin 1.14 AST 51.0 H ALT 29.1 Alkaline Phosphatase 57.2 Troponin I < 0.012 Total Protein 7.76 Albumin 4.61 Globulin 3.15 Albumin/Globulin Ratio 1.46 Influ A Molecular Assay Negative by naat Influ B Molecular Assay Negative by naat RSV Antigen Negative by naat SARS CoV-2 RNA Rapid TUCKER Positive H Imaging Imaging: EXAM: CHEST RADIOGRAPH TECHNIQUE: Two views of the chest. COMPARISON: 07/22/2022 HISTORY: Cough FINDINGS: The heart and mediastinum are stable. Mild bibasilar atelectasis is grossly unchanged. The lungs and pleural spaces are stable. No pneumothorax. Stable calcified granulomas. No acute abnormality of the bones or soft tissues is identified. IMPRESSION: No evidence of acute disease. EXAM: CHEST CTA WITH CONTRAST (PULMONARY ARTERY) HISTORY: History of pulmonary mild disease. COVID-19 positive. TECHNIQUE: CTA acquisition of the chest from the thoracic inlet to the upper abdomen following IV contrast administration timed to filling of the pulmonary artery. IV Contrast: 100 mL of Omnipaque 350. 3D/MIP/VR images were utilized. CT Dose Reduction Techniques Employed: Yes. COMPARISON: 07/26/2020 FINDINGS: Pulmonary Embolism: - Diagnostic quality: Adequate. - Pulmonary Arteries: No evidence of thromboembolic disease. - Right ventricle/Left ventricle ratio: Normal. Lung Parenchyma and Airways: No suspicious mass or consolidation. Moderate centrilobular emphysema is identified. Mild bilateral dependent compressive atelectasis is noted. Pleural Space: No significant pleural effusion. No pneumothorax. Mediastinum: The heart appears within normal limits. No pericardial effusion. The great vessels are normal. No significant aortic aneurysm. No enlarged lymph nodes. Bones and Soft Tissues: No acute fracture. The a healed old sternal fracture is noted. Chest wall soft tissues are unremarkable. Upper Abdomen: Severe calcified arterial plaque is identified. There is likely moderate to severe stenosis of the right renal artery. IMPRESSION: 1. Normal CT pulmonary angiogram without evidence of pulmonary artery embolism. 2. No acute findings in the chest. 3. Moderate emphysema. Review Statement Review Statement: I have independently reviewed and interpreted the labs/EKGs/imaging that were ordered by the ER provider. I have reviewed all outside records that are available currently in our EMR including imaging/notes/labs from previous visits. Plan Plan: 1. Acute hypoxic respiratory failure in setting of covid 19- PO2 44. Requiring more oxygen than her baseline. Dexamethasone and remdesivir (day 1) ordered. RT consult. 2. Covid 19 - Covid isolation. Plan as above. 3. Subtherapeutic INR - INR 1. Once med rec verified, will adjust dose. Repeat daily. 4. Hypothyroidism - Cont home meds 5. PAD - Cont home meds 6. Hypertension - Cont home meds 7. Chronic pain - Cont home meds DVT Prophylaxis: Warfarin Time Spent: Greater than 80 minutes spent with patient, 50% of the time spent with this patient was devoted to counseling and coordination of care. [facility] minutes spent discussing advance care planning. Patient very unclear and indecisive on what she wants. Discussed being full code today and she can think about it and we can revisit it tomorrow. She agrees. Admit to: Inpatient Discussed Plan of Care with Dr. Brian Sagastume.
--- NOTE | 2023-02-03 11:58 | CT ---
EXAM: CHEST CTA WITH CONTRAST (PULMONARY ARTERY) HISTORY: History of pulmonary mild disease. COVID-19 positive. TECHNIQUE: CTA acquisition of the chest from the thoracic inlet to the upper abdomen following IV con trast administration timed to filling of the pulmonary artery. IV Contrast: 100 mL of Omnipaque 350. 3D/MIP/VR images were utilized. CT Dose Reduction Techniques Employed: Yes. COMPARISON: 07/26/2020 FINDINGS: Pulmonary Embolism: - Diagnostic quality: Adequate. - Pulmonary Arteries: No evidence of thromboembolic disease. - Right ventricle/Left ventricle ratio: Normal. Lung Parenchyma and Airways: No suspicious mass or consolidation. Moderate centrilobular emphysema is identified. Mild bilateral dependent compressive atelectasis is noted. Pleural Space: No significant pleural effusion. No pneumothorax. Mediastinum: The heart appears within normal limits. No pericardial effusion. The great vessels are n ormal. No significant aortic aneurysm. No enlarged lymph nodes. Bones and Soft Tissues: No acute fracture. The a healed old sternal fracture is noted. Chest wall s oft tissues are unremarkable. Upper Abdomen: Severe calcified arterial plaque is identified. There is likely moderate to severe s tenosis of the right renal artery. IMPRESSION: 1. Normal CT pulmonary angiogram without evidence of pulmonary artery embolism. 2. No acute findings in the chest. 3. Moderate emphysema. All CT scans are performed using dose optimization techniques as appropriate to the performed exam an d include at least one of the following: Automated exposure control, adjustment of the mA and/or kV according t o size, and the use of iterative reconstruction technique.
[2023-02-03] MEDS ORDERED: TYLENOL PO PRN (12:13)
[2023-02-03] MEDS ORDERED: ZOFRAN 4 MG/2 ML IVP PRN (12:13)
[2023-02-03 13:14] VITALS: BMI 23.9
[2023-02-03] MEDS ORDERED: VEKLURY 200 MG in SODIUM CHLORIDE 250 ML IV ONE (13:20)
[2023-02-03] MEDS ORDERED: NON-FORMULARY MEDICATION (Ferrous Sulfate [Ferosul] 325 mg (65 mg iron) tablet) SCH (15:30)
[2023-02-03] MEDS ORDERED: COUMADIN PO SCH (17:00)
[2023-02-03] MEDS: NEURONTIN PO SCH (20:36)
[2023-02-03] MEDS: NORCO 5-325 PO PRN (20:36)
[2023-02-03] MEDS: NORVASC PO SCH (20:36)
[2023-02-03] MEDS: LIPITOR PO SCH (20:36)
[2023-02-04] MEDS: SYNTHROID PO SCH (05:43)
[2023-02-04 05:51] LABS: HEMATOCRIT 46.2 % (37.0-47.0); HEMOGLOBIN 14.6 g/dl (12.0-16.0); IMMATURE GRANULOCYTE % (AUTO) 0.7 % (0.0-5.0); LYMPHOCYTES # (AUTO) 0.9 K/uL (0.60-3.4); LYMPHOCYTES % (AUTO) 19.8 (10.0-50.0); MEAN CORPUSCULAR HEMOGLOBIN 29.1 pg (27.0-31.0); MEAN CORPUSCULAR HGB CONC 31.6 (31.8-35.4); MONOCYTES # (AUTO) 0.5 K/uL (0.4-2.0); MONOCYTES % (AUTO) 11.6 (0-10); NEUTROPHILS # (AUTO) 2.9 K/ul (2.0-6.9); NEUTROPHILS % (AUTO) 67.9 % (42.2-75.2); PLATELET COUNT 136 10^3/uL (140-440); RDW COEFFICIENT OF VARIATION 13.9 % (11.6-14.8); RED BLOOD COUNT 5.02 10^6/ul (4.20-5.40)
[2023-02-04 06:08] LABS: ALANINE AMINOTRANSFERASE 26.6 U/L (0-35); ALBUMIN 4.25 g/dL (3.5-5.0); ALKALINE PHOSPHATASE 50.7 U/L (53-141); ASPARTATE AMINO TRANSFERASE 36.4 U/L (14-36); BILIRUBIN,TOTAL 0.78 mg/dL (0.2-1.3); BLOOD UREA NITROGEN 18.5 mg/dL (7-17); CALCIUM 9.79 mg/dL (8.4-10.2); CARBON DIOXIDE 29.9 mmol/L (22-30.0); CHLORIDE 101.7 mmol/L (98-107); CREATININE 0.85 mg/dL (0.60-1.30); POTASSIUM 4.71 mmol/L (3.5-5.1); SODIUM 137.5 mmol/L (134.5-145); TOTAL PROTEIN 6.96 g/dL (6.3-8.2)
[2023-02-04] MEDS: DECADRON IVP SCH (09:32)
[2023-02-04] MEDS: NEURONTIN PO SCH ×3 (09:33→20:02)
[2023-02-04] MEDS: FERROUS SULFATE PO SCH (09:34)
[2023-02-04] MEDS: NORVASC PO SCH ×2 (09:34→20:01)
[2023-02-04] MEDS: LEXAPRO PO SCH (09:34)
[2023-02-04] MEDS: XANAX PO PRN ×2 (10:38→20:01)
--- NOTE | 2023-02-04 11:41 | PCM.PROG ---
Date/Time Seen Date Seen by Provider: 02/04/23 Time Seen by Provider: 09:00 Provider Provider: FRANK BOWSER PA-C, [facility] Chief Complaint Chief Complaint: COVID, HYPOXIC Subjective Subjective: Patient denies any complaints today. Asking to brush her dentures. Denies chest pain. Had a large solid BM this morning. On 2L this morning, which she wears prn at home. Objective Appearance: Positive No Apparent Distress and Alert and Oriented x3 Chest/Lungs: Positive Clear to Auscultation Bilaterally; Negative Rales, Rhonci or Wheezes Heart: Positive RRR GI/: Positive Soft, Nontender, Bowel Sounds Normal and No Distention Musculoskeletal: Positive Other (+left AKA ) Neurological: Positive Alert, Oriented and Other (+generalized weakness) Vital Signs Vital Signs: Vital Signs: Last 24 Hours 02/03/23 12:44 02/03/23 12:44 02/03/23 13:00 Temperature 97.9 F Temperature Source Tympanic Pulse Rate 80 Respiratory Rate 20 Blood Pressure Blood Pressure Mean Blood Pressure Left Arm 148/77 Blood Pressure Location Blood Pressure Position Supine O2 Sat by Pulse Oximetry Oxygen Delivery Method Nasal Cannula Nasal Cannula Oxygen Flow Rate 2 2 Height 5 ft 2 in Weight 130 lb 12.8 oz Telemetry Type Remote Telemetry Telemetry Monitoring Continues Telemetry Heart Rate 85 Telemetry SPO2 EKG OK Interval 0.16 EKG QRS Interval 0.06 Telemetry Strip Reading SR 02/03/23 13:43 02/03/23 18:00 02/03/23 19:00 Temperature 97.8 F Temperature Source Temporal Artery Scan Pulse Rate 77 Respiratory Rate 24 H Blood Pressure 153/80 H Blood Pressure Mean 104 Blood Pressure Left Arm Blood Pressure Location Left Arm Blood Pressure Position Sitting O2 Sat by Pulse Oximetry 96 Oxygen Delivery Method Nasal Cannula Nasal Cannula Oxygen Flow Rate 2 2 Height Weight Telemetry Type Bedside Monitor Telemetry Monitoring Continues Telemetry Heart Rate 80 Telemetry SPO2 EKG OK Interval 0.17 EKG QRS Interval 0.06 Telemetry Strip Reading SR 02/03/23 20:00 02/03/23 20:00 02/03/23 22:00 Temperature 97.4 F L Temperature Source Temporal Artery Scan Pulse Rate 71 Respiratory Rate 18 Blood Pressure 155/78 H Blood Pressure Mean 103 Blood Pressure Left Arm Blood Pressure Location Left Arm Blood Pressure Position Supine O2 Sat by Pulse Oximetry 94 L 94 L Oxygen Delivery Method Nasal Cannula Nasal Cannula Nasal Cannula Oxygen Flow Rate 2 2 2 Height Weight Telemetry Type Telemetry Monitoring Telemetry Heart Rate Telemetry SPO2 EKG OK Interval EKG QRS Interval Telemetry Strip Reading 02/04/23 01:00 02/04/23 02:00 02/04/23 05:42 Temperature 96.9 F L Temperature Source Temporal Artery Scan Pulse Rate 59 L 69 Respiratory Rate 17 13 Blood Pressure 135/63 191/72 H Blood Pressure Mean 87 111 Blood Pressure Left Arm Blood Pressure Location Left Arm Left Arm Blood Pressure Position Supine Supine O2 Sat by Pulse Oximetry 93 L 95 Oxygen Delivery Method Nasal Cannula Nasal Cannula Oxygen Flow Rate 2 2 Height Weight Telemetry Type Bedside Monitor Telemetry Monitoring Continues Telemetry Heart Rate 61 Telemetry SPO2 93 EKG OK Interval 0.19 EKG QRS Interval 0.05 L Telemetry Strip Reading SR 02/04/23 06:00 02/04/23 06:11 02/04/23 07:00 Temperature Temperature Source Pulse Rate Respiratory Rate Blood Pressure 170/65 H Blood Pressure Mean 100 Blood Pressure Left Arm Blood Pressure Location Left Arm Blood Pressure Position Supine O2 Sat by Pulse Oximetry 94 L Oxygen Delivery Method Nasal Cannula Nasal Cannula Oxygen Flow Rate 2 Height Weight Telemetry Type Remote Telemetry Telemetry Monitoring Continues Telemetry Heart Rate 66 Telemetry SPO2 95 EKG OK Interval 0.17 EKG QRS Interval 0.06 Telemetry Strip Reading nsr with pacs 02/04/23 08:00 02/04/23 09:48 Temperature 97.1 F L Temperature Source Temporal Artery Scan Pulse Rate 70 Respiratory Rate 16 Blood Pressure 170/65 H Blood Pressure Mean 100 Blood Pressure Left Arm Blood Pressure Location Right Arm Blood Pressure Position Sitting O2 Sat by Pulse Oximetry 94 L Oxygen Delivery Method Nasal Cannula Nasal Cannula Oxygen Flow Rate 2 Height Weight Telemetry Type Telemetry Monitoring Telemetry Heart Rate Telemetry SPO2 EKG OK Interval EKG QRS Interval Telemetry Strip Reading Lab Results Lab Results: Lab Results: Last 24 Hours 02/04/23 05:37 WBC 4.30 L RBC 5.02 Hgb 14.6 Hct 46.2 MCV 92.0 MCH 29.1 MCHC 31.6 L RDW Coeff of Nataliya 13.9 Plt Count 136 L Immature Gran % (Auto) 0.7 Neut % (Auto) 67.9 Lymph % (Auto) 19.8 [place] % (Auto) 11.6 H Eos % (Auto) 0.0 Baso % (Auto) 0.0 Neut # (Auto) 2.9 Lymph # (Auto) 0.9 [place] # (Auto) 0.5 Eos # (Auto) 0.0 Baso # (Auto) 0.0 Immature Gran # (Auto) 0.0 PT 11.0 INR 1.06 Sodium 137.5 Potassium 4.71 Chloride 101.7 Carbon Dioxide 29.9 Anion Gap 10.61 BUN 18.5 H Creatinine 0.85 Estimated GFR (MDRD) 63.00 BUN/Creatinine Ratio 21.76 Glucose 119.0 H Calcium 9.79 Total Bilirubin 0.78 AST 36.4 H ALT 26.6 Alkaline Phosphatase 50.7 L Total Protein 6.96 Albumin 4.25 Globulin 2.71 Albumin/Globulin Ratio 1.56 Additional Comments Additional Comments: I have independently reviewed and interpreted the labs/EKGs/imaging ordered during this hospital stay. I have reviewed outside records that are available in our EMR that pertain to medical stay including imaging/notes/labs from previous visits. Active Medications Active Medications: Medications Generic Name Dose Route Start Last Admin Trade Name Freq PRN Reason Stop Dose Admin Acetaminophen 650 mg 02/03/23 12:13 Acetaminophen 325 Mg Tablet PO Q4H PRN Mild Pain Hydrocodone Bitart/Acetaminophen 1 tab 02/03/23 15:30 02/03/23 20:36 Hydrocodone Bit/Acetaminophen 5/325 Mg Tablet PO 1 tab TID PRN Administration MODERATE PAIN Alprazolam 0.5 mg 02/03/23 15:30 02/04/23 10:38 Alprazolam 0.5 Mg Tablet PO 0.5 mg TID PRN Administration Anxiety Amlodipine Besylate 2.5 mg 02/03/23 21:00 02/04/23 09:34 Amlodipine Besylate 5 Mg Tablet PO 2.5 mg BID CHUY Administration Atorvastatin Calcium 40 mg 02/03/23 21:00 02/03/23 20:36 Atorvastatin Calcium 20 Mg Tablet PO 40 mg BEDTIME CHUY Administration Dexamethasone Sodium Phosphate 6 mg 02/04/23 09:00 02/04/23 09:32 Dexamethasone Sod Phos 10 Mg/Ml Inj IVP 6 mg DAILY CHUY Administration Escitalopram Oxalate 10 mg 02/04/23 09:00 02/04/23 09:34 Escitalopram Oxalate 10 Mg Tablet PO 10 mg DAILY CHUY Administration Ferrous Sulfate 324 mg 02/04/23 09:00 02/04/23 09:34 Ferrous Sulfate 324 Mg Tablet. PO 324 mg DAILY CHUY Administration Furosemide 20 mg 02/05/23 06:00 Furosemide 20 Mg Tablet PO [id number] CHUY Gabapentin 100 mg 02/04/23 09:00 02/04/23 09:33 Gabapentin 100 Mg Capsule PO 100 mg 0900,1200 CHUY Administration Gabapentin 200 mg 02/03/23 21:00 02/03/23 20:36 Gabapentin 100 Mg Capsule PO 200 mg BEDTIME CHUY Administration Remdesivir 100 mg/ Sodium 100 mls @ 200 mls/hr 02/04/23 12:00 Chloride IV 02/07/23 12:29 1200 [facility] Levothyroxine Sodium 75 mcg 02/04/23 06:00 02/04/23 05:43 Levothyroxine Sodium 75 Mcg Tablet PO 75 mcg QDAC2 CHUY Administration Ondansetron HCl 4 mg 02/03/23 12:13 Ondansetron Hcl/Pf 4 Mg/2 Ml Sdv IVP Q6H PRN Nausea / Vomiting Warfarin Sodium 3 mg 02/03/23 17:00 02/03/23 16:50 Warfarin Sodium 3 Mg Tablet PO 3 mg QPM CHUY Administration Plan Plan: 1. Acute hypoxic respiratory failure in setting of covid 19- Improving. PO2 44 upon admission. Continue dexamethasone and remdesivir (day 2) ordered. RT consult. 2. Covid 19 - Covid isolation. Plan as above. 3. Subtherapeutic INR - INR 1. Pt had been off of warfarin for last few days due to INR being elevated Friday. Trending down today. Increased to 5 mg for tonight. 4. Hypothyroidism - Cont home meds 5. PAD - Cont home meds 6. Hypertension - Cont home meds 7. Chronic pain - Cont home meds DVT Prophylaxis: Warfarin Dispo: Patient is at high risk of deteriorating from covid due to her comorbidities, will keep for at least 3 doses of remdesivir. Will reevaluate tomorrow. Review Statement Review Statement: I have personally discussed and reviewed the patient's visit/currently labs/imaging/decision making with Dr. Sagastume, my supervising attending. Greater that 50 minutes spent with patient, 50% of the time spent with this patient was devoted to counseling and coordination of care.
[2023-02-04] MEDS: VEKLURY 100 MG in SODIUM CHLORIDE 100ML 100 ML IV SCH (13:00)
--- NOTE | 2023-02-04 15:51 | RS.PTINEVL ---
Subjective Patient information Date of Evaluation: 02/04/23 Date of Arrival on Unit: 02/03/23 Admitted From:: Home Diagnosis: COVID, Acute hypoxic resp failure Usual Living Arrangement: With Others (daughter) Living Arrangement Comments: lives with daughter and has ramp Home Environment: House and Ramp Medical History: Hypertension, CVA/TIA (subdural hemorrhage), COPD and Arthritis Medical History Comments:: PAD, DVT, depression, CAD, anemia LATEX ALLERGY?: No Surgical History Comments:: Ronnie CHILD , CEA, Medications: see chart Subjective Information/ Patient Comments:: pt states that her daughter wants her to stay here awhile. pt states that her daughter gets her up in to the w/c at home and she is able to propel the w/c in the house. Level of function Prior to this admission, the patient could do the following:: Partially Dependent Ambulation Abilities prior to this admission: Daughter assists with all ADL's and transfers. Current Level of Function: Partially Dependent Current Equipment Used at Home: oxygen, shower chair, w/c Interventions Objective Patient Orientation: Person, Place and Situation Current Interventions: IV's, Oxygen (2 liters), Telemetry and Sanchez Catheter Observation: Ronnie CHILD Range of Motion ROM Right Upper Extremity AROM: WFL's Left Upper Extremity AROM: WFL's Right Lower Extremity AROM: WFL's Left Lower Extremity AROM: WFL's Muscle Strength Muscle Strength Right Upper Extremity: Mild Weakness (grossly 4/5 ) Left Upper Extremity: Mild Weakness (grossly 4/5 ) Right Lower Extremity: Mild Weakness (hip flex 4/5, knee flex/ext 4+/5, ankle DF/PF 4/5 ) Left Lower Extremity: Mild Weakness (hip flex 4/5 ) Sensation Sensation Right Upper Extremity: Intact/Normal Left Upper Extremity: Intact/Normal Right Lower Extremity: Intact/Normal Left Lower Extremity: Intact/Normal Palpation Palpation Findings: None/Normal Balance Sitting Balance and Reactions Static Sitting Balance: Fair Dynamic Sitting Balance: Poor Sitting Equilibrium Reactions: Delayed Left and Delayed Right Sitting Protective Reactions: Delayed Left and Delayed Right Standing Balance and Reactions Static Standing Balance: Poor Dynamic Standing Balance: Poor Standing Equilibrium Reactions: Delayed Left and Delayed Right Standing Protective Reactions: Delayed Left and Delayed Right Functional Mobility Bed Mobility Rolling R/L: Min Assist and 1 person assist Supine to Sit: Mod Assist and 1 person assist Transfers Sit to Stand: Mod Assist, 1 person assist and 2 person assist Stand to Sit: Mod Assist, 1 person assist and 2 person assist Stand Pivot Transfers: Mod Assist, 1 person assist and 2 person assist Comments:: pt placed on lift pad in chair Safety Awareness Safety Awareness: Fair SIMRAN INDEX SCORE: n/a Treatment time Time with patient Length of Evaluation: 21 Total treatment time: 27 Patient Education Education Patient Education: Activity Modification and Education of Plan of Care Teaching Recipient: Patient Teaching Methods: Discussion Comments: discussion with patient regarding PLOF. pt appears to be at baseline. Assessment Assessment Problem List:: Weakness and Cognitive status limits abilities Rehab Potential: Poor Further Therapy Indicated?: No Candidate for Swing Bed for Therapy Services?: Feel pt is not a candidate for therapy in swing bed. pt is at functional baseline. Comments: Feel pt does not require skilled PT at this time due to pt is at her baseline from PLOF. Evaluation Complexity: HISTORY: Medium, EXAM OF BODY SYSTEMS: Medium, CLINICAL PRESENTATION: Medium and CLINICAL DECISION MAKING: Medium Patient's Goal(s): "go home when I am ready" Short Term Goals GOAL #1: . GOAL #2: . GOAL #3: . GOAL #4: . GOAL #5: . GOAL #6: . [facility] Goals GOAL #1: . GOAL #2: . GOAL #3: . Plan Other:: eval only Frequency of Treatment: One time treatment Duration of Treatment: One Time Treatment Anticipated Discharge Destination: Home Treatment Diagnosis (ICD 10 Codes): weakness M62.81 COVID Z86.19 Has the Physician been added for Co-signature?: Yes
[2023-02-04] MEDS ORDERED: COUMADIN PO SCH ×2 (17:00)
[2023-02-04] MEDS: LIPITOR PO SCH (20:01)
[2023-02-04] MEDS: NORCO 5-325 PO PRN (20:01)
[2023-02-05] MEDS: SYNTHROID PO SCH (05:30)
[2023-02-05 05:38] LABS: HEMATOCRIT 43.6 % (37.0-47.0); HEMOGLOBIN 14.1 g/dl (12.0-16.0); IMMATURE GRANULOCYTE % (AUTO) 0.6 % (0.0-5.0); LYMPHOCYTES # (AUTO) 0.9 K/uL (0.60-3.4); LYMPHOCYTES % (AUTO) 17.9 (10.0-50.0); MEAN CORPUSCULAR HEMOGLOBIN 29.5 pg (27.0-31.0); MEAN CORPUSCULAR HGB CONC 32.3 (31.8-35.4); MEAN CORPUSCULAR VOLUME 91.2 fl (81.0-99.0); MONOCYTES # (AUTO) 0.5 K/uL (0.4-2.0); MONOCYTES % (AUTO) 9.9 (0-10); NEUTROPHILS # (AUTO) 3.8 K/ul (2.0-6.9); NEUTROPHILS % (AUTO) 71.6 % (42.2-75.2); PLATELET COUNT 141 10^3/uL (140-440); RDW COEFFICIENT OF VARIATION 13.6 % (11.6-14.8); RED BLOOD COUNT 4.78 10^6/ul (4.20-5.40); WHITE BLOOD COUNT 5.25 K/ul (4.6-10.2)
[2023-02-05] MEDS ORDERED: LASIX TAB PO SCH (06:00)
[2023-02-05 06:05] LABS: ALANINE AMINOTRANSFERASE 28.8 U/L (0-35); ALBUMIN 3.82 g/dL (3.5-5.0); ALKALINE PHOSPHATASE 68.8 U/L (53-141); ASPARTATE AMINO TRANSFERASE 37.1 U/L (14-36); BILIRUBIN,TOTAL 0.41 mg/dL (0.2-1.3); BLOOD UREA NITROGEN 21.5 mg/dL (7-17); CALCIUM 9.32 mg/dL (8.4-10.2); CARBON DIOXIDE 28.4 mmol/L (22-30.0); CHLORIDE 102.6 mmol/L (98-107); CREATININE 0.71 mg/dL (0.60-1.30); GLUCOSE 133.8 mg/dL (74-106); POTASSIUM 4.02 mmol/L (3.5-5.1); SODIUM 135.9 mmol/L (134.5-145); TOTAL PROTEIN 6.2 g/dL (6.3-8.2)
[2023-02-05 06:09] LABS: PROTHROMBIN TIME 12.1 SEC (9.3-11.0)
[2023-02-05] MEDS: LEXAPRO PO SCH (08:45)
[2023-02-05] MEDS: NORVASC PO SCH (08:45)
[2023-02-05] MEDS: NEURONTIN PO SCH ×2 (08:45→12:51)
[2023-02-05] MEDS: FERROUS SULFATE PO SCH (08:45)
[2023-02-05] MEDS: DECADRON IVP SCH (09:17)
[2023-02-05 09:57] VITALS: RESP 22; TEMP 98.2
--- NOTE | 2023-02-05 11:14 | DCSUM ---
Admission Date Admission Date: 02/03/23 Discharge Date Discharge Date: 02/05/23 Admission Diagnosis Admission Diagnosis: 1. Acute hypoxic respiratory failure in setting of covid 19 2. Covid 19 Discharge Diagnosis Discharge Diagnosis: 1. Acute hypoxic respiratory failure in setting of covid 19- resolved 2. Covid 19 - stable 3. Subtherapeutic INR - recheck friday 4. Hypothyroidism - Cont home meds 5. PAD - Cont home meds 6. Hypertension - Cont home meds 7. Chronic pain - Cont home meds Hospital Provider Hospital Provider: FRANK BOWSER PA-C, [facility] Primary Care Physician Primary Care Physician: BIJAN ROWE MD Summary of History and Physical Summary of History and Physical: Patient is a 87 year old female from home with pmhx of hyperlipidemia, anemia, TIAN, osteoarthritis, hypothyroidism, h/x CVA/subdural hemorrhage, COPD, PAD, DVT who presented to ER with cc of sob and low O2. Patient had low O2 at home in the 80s. Patient 84% in ER and was placed on 4L. She wears 2L at baseline at home. She was found to be covid positive. She denies hx of covid vaccines. She states she had n/v two nights ago. CXR and CTA chest in ER negative for acute findings. She was given dexamethasone. Discussed with pt risks vs benefits of remdesivir. She would like to proceed. 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 Takes warfarin. Hospital Course Subjective: Patient treated with remdesivir and dexamethasone. Completed 3 days. She was at baseline O2 use. Did well from a respiratory standpoint. [place] to be at her baseline. Vitals and labs stable. Will discharge to home on remainder of dexamethasone. Isolate total of 10 days. Red flags on when to return discussed. INR low, trending down, increased warfarin to 5 mg nightly. Recheck INR on Friday per Dr. Harpreet Rowe and contact office for further instructions. Patient daughter updated on plan of care. Appearance: Pleasant, No Apparent Distress and Alert HEENT: MMM CVS: No Murmur Abdomen: Soft, Non-Tender and No Distention Respiratory: No Dyspnea Extremities: No Edema Vital Signs: Most Recent Vital Signs Temperature 98.2 F 02/05/23 09:55 Temperature Source Oral 02/05/23 09:55 Temperature Source Oral 02/03/23 09:32 Pulse Rate 64 02/05/23 09:55 Respiratory Rate 22 H 02/05/23 09:55 Blood Pressure 152/72 H 02/05/23 09:55 Blood Pressure Mean 98 02/05/23 09:55 Blood Pressure Left Arm 148/77 02/03/23 12:44 Blood Pressure Location Left Arm 02/05/23 09:55 Blood Pressure Position Sitting 02/05/23 09:55 O2 Sat by Pulse Oximetry 96 02/05/23 09:55 Oxygen Delivery Method Nasal Cannula 02/05/23 10:17 Oxygen Flow Rate 2 02/05/23 10:17 Height 5 ft 2 in 02/03/23 12:44 Weight 130 lb 12.8 oz 02/03/23 12:44 Telemetry Type Bedside Monitor 02/05/23 07:00 Telemetry Monitoring Continues 02/05/23 07:00 Telemetry Heart Rate 53 L 02/05/23 07:00 Telemetry SPO2 98 02/05/23 07:00 EKG MA Interval 0.13 02/05/23 01:00 EKG QRS Interval 0.08 02/05/23 07:00 Telemetry Strip Reading Afib 02/05/23 07:00 Imaging: EXAM: CHEST RADIOGRAPH TECHNIQUE: Two views of the chest. COMPARISON: 07/22/2022 HISTORY: Cough FINDINGS: The heart and mediastinum are stable. Mild bibasilar atelectasis is grossly unchanged. The lungs and pleural spaces are stable. No pneumothorax. Stable calcified granulomas. No acute abnormality of the bones or soft tissues is identified. IMPRESSION: No evidence of acute disease. EXAM: CHEST CTA WITH CONTRAST (PULMONARY ARTERY) HISTORY: History of pulmonary mild disease. COVID-19 positive. TECHNIQUE: CTA acquisition of the chest from the thoracic inlet to the upper abdomen following IV contrast administration timed to filling of the pulmonary artery. IV Contrast: 100 mL of Omnipaque 350. 3D/MIP/VR images were utilized. CT Dose Reduction Techniques Employed: Yes. COMPARISON: 07/26/2020 FINDINGS: Pulmonary Embolism: - Diagnostic quality: Adequate. - Pulmonary Arteries: No evidence of thromboembolic disease. - Right ventricle/Left ventricle ratio: Normal. Lung Parenchyma and Airways: No suspicious mass or consolidation. Moderate centrilobular emphysema is identified. Mild bilateral dependent compressive atelectasis is noted. Pleural Space: No significant pleural effusion. No pneumothorax. Mediastinum: The heart appears within normal limits. No pericardial effusion. The great vessels are normal. No significant aortic aneurysm. No enlarged lymph nodes. Bones and Soft Tissues: No acute fracture. The a healed old sternal fracture is noted. Chest wall soft tissues are unremarkable. Upper Abdomen: Severe calcified arterial plaque is identified. There is likely moderate to severe stenosis of the right renal artery. IMPRESSION: 1. Normal CT pulmonary angiogram without evidence of pulmonary artery embolism. 2. No acute findings in the chest. 3. Moderate emphysema. Lab Results Last 24 Hours: 02/05/23 05:24 WBC 5.25 RBC 4.78 Hgb 14.1 Hct 43.6 MCV 91.2 MCH 29.5 MCHC 32.3 RDW Coeff of Nataliya 13.6 Plt Count 141 Immature Gran % (Auto) 0.6 Neut % (Auto) 71.6 Lymph % (Auto) 17.9 Craven % (Auto) 9.9 Eos % (Auto) 0.0 Baso % (Auto) 0.0 Neut # (Auto) 3.8 Lymph # (Auto) 0.9 Craven # (Auto) 0.5 Eos # (Auto) 0.0 Baso # (Auto) 0.0 Immature Gran # (Auto) 0.0 PT 12.1 H INR 1.17 Sodium 135.9 Potassium 4.02 Chloride 102.6 Carbon Dioxide 28.4 Anion Gap 8.92 BUN 21.5 H Creatinine 0.71 Estimated GFR (MDRD) 78.00 BUN/Creatinine Ratio 30.28 Glucose 133.8 H Calcium 9.32 Total Bilirubin 0.41 AST 37.1 H ALT 28.8 Alkaline Phosphatase 68.8 Total Protein 6.20 L Albumin 3.82 Globulin 2.38 Albumin/Globulin Ratio 1.60 Discharge Instructions Discharge Planning: Discharge Planning > [address] Brian Rowe. Discharge Medications: Medications at Discharge (Home Meds & RX) azelastine 0.05 % eye drops 1 drp BOTHEYES BID 05/23/22 nystatin 100,000 unit/gram topical powder (Nystop) 1 applic topical QID PRN Redness #15 grams 07/25/22 C.COMMODE #1 ea 10/15/22 clotrimazole-betamethasone 1 %-0.05 % topical cream 1 applic topical BID #15 gr ams 11/11/22 fenofibrate 54 mg tablet See Rx Instructions .Route .COMPLEX #30 tabs 12/05/22 alprazolam 0.5 mg tablet 0.5 mg PO TID PRN Anxiety/Restlessness #90 tabs 01/02/23 amlodipine 2.5 mg tablet See Rx Instructions .Route .COMPLEX #60 tabs 01/02/23 atorvastatin 40 mg tablet See Rx Instructions .Route .COMPLEX #30 tabs 01/02/23 calcium carbonate 600 mg-vitamin D3 10 mcg (400 unit) tablet See Rx Instructions .Route .COMPLEX #60 tabs 01/02/23 cetirizine 10 mg tablet (Allergy Relief (cetirizine)) See Rx Instructions .Route .COMPLEX #30 ea 01/02/23 ferrous sulfate 325 mg (65 mg iron) tablet (FeroSul) See Rx Instructions .Route .COMPLEX #30 tabs 01/02/23 furosemide 20 mg tablet See Rx Instructions .Route .COMPLEX #12 tabs 01/02/23 gabapentin 100 mg capsule See Rx Instructions .Route .COMPLEX #120 caps 01/02/23 ondansetron HCl 4 mg tablet See Rx Instructions .Route .COMPLEX #20 tabs 01/02/23 escitalopram oxalate 10 mg tablet See Rx Instructions .Route .COMPLEX #30 tabs 01/30/23 hydrocodone 5 mg-acetaminophen 325 mg tablet 1 tab PO TID PRN Pain, Moderate #90 tabs 01/30/23 levothyroxine 75 mcg tablet See Rx Instructions .Route .COMPLEX #30 tabs 01/30/23 potassium chloride 10 mEq tablet,extended release(part/cryst) See Rx Instructions .Route .COMPLEX #12 tabs 01/30/23 dexamethasone 6 mg tablet 6 mg PO DAILY 7 days #7 tabs 02/05/23 warfarin 5 mg tablet 5 mg PO QPM #30 tabs 02/05/23 Discharge Plan Discharge Discharge Orders: Discharge Patient (ONCE); Ordered 02/05/23 Ordered By: FRANK BOWSER Activity Restrictions/Additional Instructions: DISCHARGE TO HOME DX: COVID 19 DIET: HEART HEALTHY ACTIVITY: TOLERATED ISOLATE FOR 10 TOTAL DAYS RETURN WITH WORSENING SYMPTOMS TAKE WARFARIN 5 MG DAILY, REPEAT INR ON FRIDAY AND F/U WITH DR. MICHAEL OFFICE REGARDING FURTHER INSTRUCTIONS Instructions: COVID-19 (Coronavirus Disease 2019) (GEN) Care Plan Goals: Problem: Alteration in Comfort/Pain Goal: Manage pain at a tolerable level Instructions: Monitor character, location and intensity Express expectations of pain relief Pain medication as ordered Position for maximal comfort Pain management prior to activities Patient Disposition: HOME SELF-CARE Prescriptions: New warfarin 5 mg Tablet 5 mg PO QPM Qty: 30 0RF Rx Instructions: REPEAT INR SATURDAY 02/10 dexamethasone 6 mg tablet 6 mg PO DAILY 7 Days Qty: 7 0RF Continued clotrimazole-betamethasone 1-0.05 % cream 1 applic topical BID Qty: 15 0RF fenofibrate 54 mg tablet See Rx Instructions .ROUTE .COMPLEX Qty: 30 2RF Dose Instruction: TAKE ONE TABLET DAILY Rx Instructions: TAKE ONE TABLET DAILY calcium carbonate-vitamin D3 600 mg-10 mcg (400 unit) tablet See Rx Instructions .ROUTE .COMPLEX Qty: 60 2RF Dose Instruction: TAKE ONE TABLET TWICE DAILY Rx Instructions: TAKE ONE TABLET TWICE DAILY amlodipine 2.5 mg tablet See Rx Instructions .ROUTE .COMPLEX Qty: 60 2RF Dose Instruction: TAKE ONE TABLET TWICE DAILY GENERIC FOR NORVASC Rx Instructions: TAKE ONE TABLET TWICE DAILY GENERIC FOR NORVASC atorvastatin 40 mg tablet See Rx Instructions .ROUTE .COMPLEX Qty: 30 2RF Dose Instruction: TAKE ONE TABLET AT BEDTIME GENERIC FOR LIPITOR Rx Instructions: TAKE ONE TABLET AT BEDTIME GENERIC FOR LIPITOR furosemide 20 mg tablet See Rx Instructions .ROUTE .COMPLEX Qty: 12 2RF Dose Instruction: TAKE ONE TABLET FRIDAY, FRIDAY, & FRIDAY GENERIC FOR LASIX Rx Instructions: TAKE ONE TABLET FRIDAY, FRIDAY, & FRIDAY GENERIC FOR LASIX ferrous sulfate [FeroSul] 325 mg (65 mg iron) tablet See Rx Instructions .ROUTE .COMPLEX Qty: 30 2RF Dose Instruction: TAKE ONE TABLET DAILY Rx Instructions: TAKE ONE TABLET DAILY cetirizine [Allergy Relief (cetirizine)] 10 mg tablet See Rx Instructions .ROUTE .COMPLEX Qty: 30 2RF Dose Instruction: TAKE ONE TABLET DAILY Rx Instructions: TAKE ONE TABLET DAILY gabapentin 100 mg capsule See Rx Instructions .ROUTE .COMPLEX Qty: 120 2RF Dose Instruction: TAKE ONE CAPSULE IN EVERY MORNING, TAKE ONE CAPSULE AT NOON, TAKE TWO CAPSULES AT BEDTIME. Rx Instructions: TAKE ONE CAPSULE IN EVERY MORNING, TAKE ONE CAPSULE AT NOON, TAKE TWO CAPSULES AT BEDTIME. ondansetron HCl 4 mg tablet See Rx Instructions .ROUTE .COMPLEX Qty: 20 1RF Dose Instruction: TAKE ONE TABLET TWICE DAILY NEEDED GENERIC FOR ZOFRAN Rx Instructions: TAKE ONE TABLET TWICE DAILY NEEDED GENERIC FOR ZOFRAN alprazolam 0.5 mg tablet 0.5 mg PO TID PRN (Reason: Anxiety/Restlessness) Qty: 90 2RF escitalopram oxalate 10 mg tablet See Rx Instructions .ROUTE .COMPLEX Qty: 30 2RF Dose Instruction: TAKE ONE TABLET DAILY GENERIC FOR LEXAPRO Rx Instructions: TAKE ONE TABLET DAILY GENERIC FOR LEXAPRO potassium chloride 10 mEq tablet,ER particles/crystals See Rx Instructions .ROUTE .COMPLEX Qty: 12 2RF Dose Instruction: TAKE ONE TABLET THREE TIMES A WEEK WITH LASIX Rx Instructions: TAKE ONE TABLET THREE TIMES A WEEK WITH LASIX hydrocodone-acetaminophen 5-325 mg tablet 1 tab PO TID PRN (Reason: Pain, Moderate) Qty: 90 0RF levothyroxine 75 mcg tablet See Rx Instructions .ROUTE .COMPLEX Qty: 30 2RF Dose Instruction: TAKE ONE TABLET DAILY GENERIC FOR SYNTHROID Rx Instructions: TAKE ONE TABLET DAILY GENERIC FOR SYNTHROID azelastine 0.05 % drops 1 drp BOTHEYES BID nystatin [Nystop] 100,000 unit/gram Powder 1 applic topical QID PRN (Reason: Redness ) Qty: 15 0RF Rx Instructions: Apply under breast, abdominal folds, and groin as needed. Discontinued warfarin 3 mg tablet See Rx Instructions .ROUTE .COMPLEX Qty: 90 1RF Hold Instructions: Okayed Dose Instruction: TAKE ONE TABLET AT BEDTIME GENERIC FOR COUMADIN Rx Instructions: TAKE ONE TABLET AT BEDTIME GENERIC FOR COUMADIN No Action (DME) CJuliaCOMMFACUNDO Misc See Rx Instructions .ROUTE Qty: 1 0RF Rx Instructions: As directed BED SIDE Did you review [place] [employer] ANALYST for ALL controlled substances?: Not Applicable Discussed opioids are addictive and Narcan is available by prescription or from pharmacy.: No Condition: Good Referrals: BIJAN ROWE MD [Primary Care Provider] - 02/12/23 8:20 am
[2023-02-05] MEDS: VEKLURY 100 MG in SODIUM CHLORIDE 100ML 100 ML IV SCH (12:49)
[2023-02-05] MEDS: NORCO 5-325 PO PRN (13:19)
[2023-02-05] MEDS: XANAX PO PRN (13:19)
[2023-02-05 13:56] VITALS: BP 132/55; PULSE 63
== END 2023-02-05 14:35 | disposition home or self-care (01) | DRG 189 ==
LOC: ED 09:27 → SCU 12:18
PROVIDERS: ADMIT Hospitalist; ATTEND Physician Assistant
DX: R09.02 Hypoxemia; Z86.73 Personal history of transient ischemic attack (TIA), and cerebral infarction without residual deficits; G89.29 Other chronic pain; Z86.718 Personal history of other venous thrombosis and embolism; I10 Essential (primary) hypertension; M19.90 Unspecified osteoarthritis, unspecified site; U07.1 COVID-19; Z79.01 Long term (current) use of anticoagulants; I73.9 Peripheral vascular disease, unspecified; D64.9 Anemia, unspecified; J96.01 Acute respiratory failure with hypoxia; E03.9 Hypothyroidism, unspecified

== ENCOUNTER 2023-02-11 11:49 | Inpatient (IN) ==
[2023-02-11] MEDS ORDERED: TYLENOL PO STA (12:06)
[2023-02-11 12:24] LABS: BASOPHILS % (AUTO) 0.1 % (0.0-3.0); HEMOGLOBIN 14.6 g/dl (12.0-16.0); IMMATURE GRANULOCYTE # (AUTO) 0.1 (0.0-1.0); IMMATURE GRANULOCYTE % (AUTO) 0.6 % (0.0-5.0); LYMPHOCYTES # (AUTO) 0.8 K/uL (0.60-3.4); MEAN CORPUSCULAR HEMOGLOBIN 29.8 pg (27.0-31.0); MEAN CORPUSCULAR HGB CONC 32.4 (31.8-35.4); MEAN CORPUSCULAR VOLUME 91.8 fl (81.0-99.0); MONOCYTES # (AUTO) 0.4 K/uL (0.4-2.0); MONOCYTES % (AUTO) 3.4 (0-10); NEUTROPHILS # (AUTO) 8.9 K/ul (2.0-6.9); NEUTROPHILS % (AUTO) 87.9 % (42.2-75.2); PLATELET COUNT 147 10^3/uL (140-440); RDW COEFFICIENT OF VARIATION 14.6 % (11.6-14.8); WHITE BLOOD COUNT 10.16 K/ul (4.6-10.2)
[2023-02-11 12:26] LABS: BILIRUBIN,URINE Negative (NEGATIVE); CLARITY,URINE Slightly (CLEAR); COLOR,URINE Yellow (YELLOW); GLUCOSE, URINE (UA) Negative (NEGATIVE); KETONES,URINE Negative (NEGATIVE); LEUKOCYTE ESTERASE ,URINE 3+ (NEGATIVE); NITRITE,URINE Negative (NEGATIVE); PROTEIN,URINE Trace (NEGATIVE); URINE, BLOOD 2+ (NEGATIVE)
[2023-02-11 12:27] LABS: ABG O2 HGB 85.2 % (95-100); BEecf 18.4 (-2.0-3.0); COHb 2.3 (0.5-1.5); HCO3 40.3 (21-28); TCO2 41.6 (19-24); sO2 90.6 % (94-98); tHb 15.2 g/dl (11.7-17.4)
[2023-02-11 12:29] LABS: ABG PH 7.58 (7.35-7.45)
[2023-02-11 12:38] LABS: ALANINE AMINOTRANSFERASE 22.3 U/L (0-35); ALBUMIN 3.75 g/dL (3.5-5.0); ALKALINE PHOSPHATASE 58.9 U/L (53-141); ASPARTATE AMINO TRANSFERASE 28.7 U/L (14-36); BILIRUBIN,TOTAL 1.24 mg/dL (0.2-1.3); BLOOD UREA NITROGEN 25.3 mg/dL (7-17); CALCIUM 10.01 mg/dL (8.4-10.2); CARBON DIOXIDE 35.1 mmol/L (22-30.0); CHLORIDE 94.1 mmol/L (98-107); CREATININE 1.07 mg/dL (0.60-1.30); GLUCOSE 88.1 mg/dL (74-106); SODIUM 135.5 mmol/L (134.5-145); TOTAL PROTEIN 6.74 g/dL (6.3-8.2)
[2023-02-11 12:47] LABS: PARTIAL THROMBOPLASTIN TIME 49.7 SEC (23.9-40.0)
[2023-02-11 12:47] LABS: URINE WBC, MICROSCOPIC 20-30 (0-2)
[2023-02-11 12:48] LABS: PROTHROMBIN TIME 58.4 SEC (9.3-11.0); TROPONIN I 0.021 ng/ml (0.0000-0.120)
[2023-02-11 12:48] LABS: AMORPHOUS SEDIMENT,UR 2+ (NOT PRESENT); BACTERIA,URINE 2+ (NOT PRESENT)
--- NOTE | 2023-02-11 12:54 | DI ---
EXAM: CHEST ONE-VIEW HISTORY: Cough COMPARISON: 02/03/2023 FINDINGS: Hyperinflation is noted. Chronic changes present the pulmonary parenchyma. The pulmonary vascular markings are slightly indistinct. There is slight blunting of the right costophrenic angle . This may represent mild or early changes of congestive failure. Cardiac silhouette is moderately enlarged. Vascular calcifications present in the aortic arch and descending thoracic aorta. Cardiac monitoring leads are present. IMPRESSION: Mild or early changes of pulmonary vascular congestion superimposed on chronic obstructi ve pulmonary disease and chronic change in the pulmonary parenchyma.
[2023-02-11] MEDS ORDERED: POTASSIUM CHL 10% ORAL SOL PO STA (12:55)
[2023-02-11] MEDS ORDERED: ROCEPHIN 1 GM/50 ML D5W 1 GM/50 ML BAG IV ONE (12:55)
[2023-02-11 13:00] LABS: POTASSIUM 2.91 mmol/L (3.5-5.1)
--- NOTE | 2023-02-11 13:32 | ED.PDOC ---
General ED Provider: Dr. GARRETT SCOTT MD Chief Complaint: Respiratory Complaint Stated Complaint: weakness, SOB Time Seen by Provider: 02/11/23 11:56 Information Source: Patient and EMT Primary Care Provider: BIJAN SAGASTUME MD Nursing and Triage Documentation Reviewed and Agree: Yes Review of Systems Review Of Systems Constitutional: Reports Weakness All Other Systems: Reviewed and Negative [facility] Medical History Dysuria R30.0 - Dysuria (ICD-10) Tremor R25.1 - Tremor, unspecified (ICD-10) Palpitations R00.2 - Palpitations (ICD-10) Cardiac arrhythmia I49.9 - Cardiac arrhythmia, unspecified (ICD-10) Hypokalemia E87.6 - Hypokalemia (ICD-10) Pneumonia J18.9 - Pneumonia, unspecified organism (ICD-10) Depression F32.9 - Major depressive disorder, single episode, unspecified (ICD-10) CAD (coronary artery disease) I25.10 - Atherosclerotic heart disease of [place] coronary artery without angina pectoris (ICD-10) Ovarian cyst N83.20 - Unspecified ovarian cysts (ICD-10) Family History FATHER Colon cancer Mother Colon cancer Other Pancreatic cancer Social History Smoking and tobacco status: Former smoker Tobacco: How many years used: 50 How long ago did patient quit smoking: Quit age 69 Second hand smoke exposure: Yes Alcohol intake: never Substance use type: does not use Household members: children Housing: house Marital status: W / Lives independently: Yes (daughter) Number of children: 4 Current occupational status: retired History of recent travel: No Current gender identity: female Seatbelt use: always Water heater temperature set < 120 degrees: Yes Working smoke detector in home: Yes Fire extinguisher in home: Yes Carbon monoxide detector in home: Yes Surgical History History of intravascular stent placement L leg 12/10 Z95.828 - Presence of other vascular implants and grafts (ICD-10) Female Reproductive History Menstrual Hx Hysterectomy: No Hx Tubal Ligation: No Physical Exam Physical Exam Appearance: Reports Ill-appearing Ill-appearing: Mild Pain Distress: None Eyes: Reports DICK and EOMI ENT: Reports Ears normal Neck: Supple Respiratory: Reports Airway patent and Breath sounds diminished; Denies Wheezes Cardiovascular: Reports RRR, Pulses normal and No murmur GI/: Reports Soft, Nontender and No masses Musculoskeletal: Reports Normal strength, ROM intact, No edema and Other (Left AKA) Skin: Reports Warm and Normal color Neurological: Reports Sensation intact Psychiatric: Reports Affect appropriate Interpretation EKG Interpretation EKG Interpretation By: ED Physician Time of EKG #1: 12:29 Rate: Normal Rhythm: Sinus Ectopy: PVCs [place]: [place] Critical Care Note Critical Care Note Total Critical Care Time (mins): 0 Course Course 02/11/23 12:16 02/11/23 12:16 Orders, Labs, Meds: Lab Review 02/11/23 02/11/23 02/11/23 12:15 12:16 12:20 WBC 10.16 RBC 4.90 Hgb 14.6 Hct 45.0 MCV 91.8 MCH 29.8 MCHC 32.4 RDW Coeff of Nataliya 14.6 Plt Count 147 Immature Gran % (Auto) 0.6 Neut % (Auto) 87.9 H Lymph % (Auto) 8.0 L [place] % (Auto) 3.4 Eos % (Auto) 0.0 Baso % (Auto) 0.1 Neut # (Auto) 8.9 H Lymph # (Auto) 0.8 [place] # (Auto) 0.4 Eos # (Auto) 0.0 Baso # (Auto) 0.0 Immature Gran # (Auto) 0.1 PT 58.4 H INR 6.02 H* APTT 49.7 H Puncture Site [employer] Excess 18.4 H O2 Saturation 90.6 L ABG pH 7.58 H* ABG pCO2 43.0 ABG pO2 50.0 L* ABG HCO3 40.3 H ABG Total CO2 41.6 H Micheal Test Pos Hemoglobin 1.0 Oxyhemoglobin 85.2 L Carboxyhemoglobin 2.3 H Total Hemoglobin 15.2 O2 Delivery Device Cannula Oxygen Liter Flow 2.00 Sodium 135.5 Potassium 2.91 L Chloride 94.1 L Carbon Dioxide 35.1 H Anion Gap 9.21 BUN 25.3 H Creatinine 1.07 Estimated GFR (MDRD) 48.00 BUN/Creatinine Ratio 23.64 Glucose 88.1 Lactic Acid 1.46 Calcium 10.01 Total Bilirubin 1.24 AST 28.7 ALT 22.3 Alkaline Phosphatase 58.9 Troponin I 0.021 NT-Pro-B Natriuret Pep 2040 H Total Protein 6.74 Albumin 3.75 Globulin 2.99 Albumin/Globulin Ratio 1.25 Urine Color Yellow Urine Clarity Slightly Urine pH 7.0 Ur Specific [place] 1.015 Urine Protein Trace H Urine Glucose (UA) Negative Urine Ketones Negative Urine Blood 2+ H Urine Nitrite Negative Urine Bilirubin Negative Urine Urobilinogen 1.0 H Ur Leukocyte Esterase 3+ H Urine Microscopic RBC 10-20 Urine Microscopic WBC 20-30 Ur Squamous Epith Cells 5-10 Ur Renal Epithelial Cell 2-5 Amorphous Sediment 2+ Urine Bacteria 2+ Orders Category Date Time Status ABG DRAW REQUEST Stat CARDIO 02/11/23 12:10 Completed EKG-(ED ONLY) Stat CARDIO 02/11/23 12:05 Completed OXYGEN Routine CARDIO 02/11/23 13:36 Active ACTIVITY .Early Mobilization for VTE Prevention CARE 02/11/23 13:35 Active INTAKE & OUTPUT Q8HR CARE 02/11/23 13:35 Active TELEMETRY MONITORING TELE CARE 02/11/23 13:33 Active VITAL SIGNS Q8HR CARE 02/11/23 13:35 Active REGULAR DIET DIETARY 02/11/23 Dinner Ordered Insert Sanchez [ED CATHETER INSERTION AND CARE] .ONCE EMERGENCY 02/11/23 13:38 Active ABG COOX Stat LAB 02/11/23 12:20 Completed CBC W/ AUTO DIFF DAILY@0600 LAB 02/12/23 06:00 Ordered CBC W/ AUTO DIFF DAILY@0600 LAB 02/13/23 06:00 Ordered CBC W/ AUTO DIFF DAILY@0600 LAB 02/14/23 06:00 Ordered CBC W/ AUTO DIFF Stat LAB 02/11/23 12:16 Completed CMP [COMPREHENSIVE METABOLIC PANEL] Stat LAB 02/11/23 12:16 Completed COMPREHENSIVE METABOLIC PANEL DAILY@0600 LAB 02/12/23 06:00 Ordered COMPREHENSIVE METABOLIC PANEL DAILY@0600 LAB 02/13/23 06:00 Ordered COMPREHENSIVE METABOLIC PANEL DAILY@0600 LAB 02/14/23 06:00 Ordered LACTIC ACID Stat LAB 02/11/23 12:16 Completed NT-PROBNP Stat LAB 02/11/23 12:16 Completed PARTIAL THROMBOPLASTIN TIME Stat LAB 02/11/23 12:16 Completed PT WITH INR DAILY@0600 LAB 02/12/23 06:00 Ordered PT WITH INR DAILY@0600 LAB 02/13/23 06:00 Ordered PT WITH INR DAILY@0600 LAB 02/14/23 06:00 Ordered PT WITH INR Stat LAB 02/11/23 12:16 Completed TROPONIN I Stat LAB 02/11/23 12:16 Completed URINALYSIS C & S IF INDICATED Stat LAB 02/11/23 12:15 Completed URINE CULTURE Stat LAB 02/11/23 12:15 Received Acetaminophen [Tylenol] Meds 02/11/23 12:06 Discontinued 650 mg PO ONCE STA Acetaminophen [Tylenol] Meds 02/11/23 13:35 Active 650 mg PO Q4H PRN Ceftriaxone/D5w 1 gm Premix [Rocephin 1 gm/50 ml D5w] Meds 02/12/23 09:00 Active 1 gm in 50 ml IV DAILY Ceftriaxone/D5w 1 gm Premix [Rocephin 1 gm/50 ml D5w] Meds 02/11/23 12:55 Discontinued 1 gm in 50 ml IV ONCE Ondansetron HCl/Pf [Zofran 4 mg/2 ml] Meds 02/11/23 13:35 Active 4 mg IVP Q6H PRN Potassium Chloride [K-Dur] Meds 02/11/23 13:35 Discontinued 40 meq PO ONCE ONE Potassium Chloride [Potassium Chl 10% Oral Jennifer] Meds 02/11/23 12:55 Discontinued 40 meq PO ONCE STA Potassium Chloride [Potassium Chloride 20 Meq/100 ml Meds 02/11/23 13:35 Discontinued Premix] 40 meq in 200 ml IV ONCE CXR [CHEST, 1V AP ONLY] Stat RADS 02/11/23 12:05 Completed Medications Generic Name Dose Route Start Last Admin Trade Name Freq PRN Reason Stop Dose Admin Acetaminophen 650 mg 02/11/23 13:35 Acetaminophen 325 Mg Tablet PO Q4H PRN Mild Pain Hydrocodone Bitart/Acetaminophen 1 tab 02/11/23 15:21 02/11/23 16:21 Hydrocodone Bit/Acetaminophen 5/325 Mg Tablet PO 1 tab TID PRN Administration Pain Albuterol Sulfate 2.5 mg 02/11/23 15:04 Albuterol Sulfate 0.083% Vial.Neb NEB RTQ4H PRN Wheezing Albuterol/Ipratropium 3 ml 02/11/23 18:00 02/11/23 22:10 Ipratropium/Albuterol Vial.Neb NEB 3 ml RTQ4H CHUY Administration Alprazolam 0.5 mg 02/11/23 15:21 02/11/23 20:35 Alprazolam 0.5 Mg Tablet PO 0.5 mg TID PRN Administration Anxiety Amlodipine Besylate 2.5 mg 02/11/23 21:00 02/11/23 20:34 Amlodipine Besylate 5 Mg Tablet PO 2.5 mg BID CHUY Administration Atorvastatin Calcium 40 mg 02/11/23 21:00 02/11/23 20:34 Atorvastatin Calcium 20 Mg Tablet PO 40 mg BEDTIME CHUY Administration Calcium/Vitamin D 1 each 02/11/23 21:00 02/11/23 20:34 Calcium Carbonate/Vitamin D3 500 Mg/5 Mcg(200iu) 1 Each Tablet PO 1 each BID CHUY Administration Clotrimazole 1 applic 02/11/23 15:21 Clotrimazole/Betamethasone 45 Gm Cream TP BID PRN Rash Escitalopram Oxalate 10 mg 02/12/23 09:00 Escitalopram Oxalate 10 Mg Tablet PO DAILY CHUY Fenofibrate 54 mg 02/12/23 09:00 Fenofibrate 54 Mg Tablet PO DAILY CHUY Furosemide 40 mg 02/11/23 17:00 02/11/23 16:20 Furosemide Inj 40 Mg/4 Ml Vial IVP 40 mg BIDAC2 CHUY Administration Gabapentin 100 mg 02/12/23 09:00 Gabapentin 100 Mg Capsule PO 0900,1200 CHUY Gabapentin 200 mg 02/11/23 21:00 02/11/23 20:34 Gabapentin 100 Mg Capsule PO 200 mg BEDTIME CHUY Administration CEFTRIAXONE/D5W 1 GM PREMIX 1 gm in 50 mls @ 100 mls/hr 02/12/23 09:00 Rocephin 1 Gm/50 Ml D5w IV 02/15/23 08:59 DAILY CHUY Levothyroxine Sodium 75 mcg 02/12/23 06:00 Levothyroxine Sodium 75 Mcg Tablet PO QDAC2 CHUY Loratadine 10 mg 02/12/23 09:00 Loratadine 10 Mg Tablet PO DAILY CHUY Non-Formulary Medication 1 drop 02/11/23 21:00 02/11/23 20:35 Azelastine EACHEYE Not Given BID CHUY Nystatin 1 applic 02/11/23 15:21 Nystatin 15 Gm Powder TP QID PRN yeast Ondansetron HCl 4 mg 02/11/23 13:35 Ondansetron Hcl/Pf 4 Mg/2 Ml Sdv IVP Q6H PRN Nausea / Vomiting Ondansetron HCl 4 mg 02/11/23 21:00 Ondansetron Hcl 4 Mg Tablet PO BID PRN NAUSEA/VOMITING Discontinued Medications Generic Name Dose Route Start Last Admin Trade Name Freq PRN Reason Stop Dose Admin Acetaminophen 650 mg 02/11/23 12:06 02/11/23 12:20 Acetaminophen 325 Mg Tablet PO 02/11/23 12:07 650 mg ONCE STA Administration CEFTRIAXONE/D5W 1 GM PREMIX 1 gm in 50 mls @ 100 mls/hr 02/11/23 12:55 02/11/23 13:18 Rocephin 1 Gm/50 Ml D5w IV 02/11/23 13:24 100 mls/hr ONCE ONE Administration Potassium Chloride 40 meq in 200 mls @ 50 mls/hr 02/11/23 13:35 02/11/23 16:07 Potassium Chloride 20 Meq/100 Ml Premix IV 02/11/23 17:34 50 mls/hr ONCE ONE Administration Potassium Chloride 40 meq 02/11/23 12:55 02/11/23 13:17 Potassium Chloride 40 Meq/30 Ml Cup PO 02/11/23 12:56 40 meq ONCE STA Administration Potassium Chloride 40 meq 02/11/23 13:35 02/11/23 15:24 Potassium Chloride 20 Meq Tab PO 02/11/23 13:36 Not Given ONCE ONE Vital Signs: Temp Pulse Resp BP Pulse Ox O2 Flow Rate 02/11/23 13:30 128/57 L 94 L 4 02/11/23 12:30 80 164/61 H 92 L 4 02/11/23 12:28 4 02/11/23 12:00 2 02/11/23 11:59 100.6 F H 81 30 H 174/64 H 92 L Patient was found to have UTI and hypokalemia and acute hypoxic respiratory failure. He was placed on 4 L nasal cannula for respiratory support, Rocephin 1 g IV and she was given 40 mEq of potassium chloride orally. Sanchez catheter was changed. Call the patient PCP Dr. Sagastume regarding admitting the patient who agreed with admission and recommended to admit to the hospitalist team. I called hospitalist Sunny discussed the patient case with her and she agreed with admitting the patient to her services. Discharge Plan Discharge Patient Disposition: ADMITTED INPATIENT Discharge Problem: UTI (urinary tract infection), Acute hypoxemic respiratory failure, Supratherapeutic INR, Hypokalemia Did you review [place] [employer] for ALL controlled substances?: Not Applicable ED Provider: GARRETT SCOTT Condition: Fair Physician Progress Note: []
[2023-02-11] MEDS ORDERED: ZOFRAN 4 MG/2 ML IVP PRN (13:35)
[2023-02-11] MEDS ORDERED: POTASSIUM CHLORIDE 20 MEQ/100 ML PREMIX 40 MEQ/200 ML BAG IV ONE (13:35)
[2023-02-11] MEDS ORDERED: K-DUR PO ONE (13:35)
[2023-02-11 14:31] LABS: SARS COV-2 RNA RAPID NAAT POSITIVE (NEGATIVE)
[2023-02-11 14:51] VITALS: BMI 22.6
[2023-02-11] MEDS ORDERED: ALBUTEROL 0.083% NEB NEB PRN (15:04)
--- NOTE | 2023-02-11 15:05 | PCM ---
Date of Service Date Seen by Provider: 02/11/23 Time Seen by Provider: 14:45 Admit Day/Time Admission Date: 02/11/23 Admission Time: 13:00 Reason for Admission Chief Complaint: UTI; ACUTE RESP FAILURE; SUPNATHERAPUTIC INR Hospital Provider Hospital Provider: KONSTANTIN HILLMAN, [facility] [place] Primary Care Physician: BIJAN SAGASTUME MD History of Present Illness History of Present Illness: 87 yo female presented to the ER with complaints of weakness and SOB. Patient was admitted on 02/03 for Acute Hypoxic Respiratory Failure secondary to Covid- 19. Patient treated with remdesivir and dexamethasone. Completed 3 days. She was at baseline O2 use of 2L. Discharged home on remainder of dexamethasone. INR low, trending down, increased warfarin to 5 mg nightly. Was supposed to recheck INR on Friday per Dr. Harpreet Sagastume and contact office for further instructions. Patient states that over the last few days she has been out of breath and very weak. Denies any fever that she is aware of. Denies any urinary symptoms. Denies chills, abdominal pain, N/V/D. In ER, O2 sat was found to be 84% and placed on 4L. This brought O2 sat up to 92%. She was found to have UTI on UA - patient also has chronic danielson catheter. Had fever of 100.6. Chest x-ray showing vascular congestion. No noted history of CHF but is on lasix. INR was found to be 6 today. Has continued to take increased dose of warfarin. Has INR monitor at home and does not recall checking it on Friday as instructed. Case Discussed With Case Discussed With: Patient's case was discussed with the ER Physicians, Dr. Price [facility] Medical History Dysuria R30.0 - Dysuria (ICD-10) Tremor R25.1 - Tremor, unspecified (ICD-10) Palpitations R00.2 - Palpitations (ICD-10) Cardiac arrhythmia I49.9 - Cardiac arrhythmia, unspecified (ICD-10) Hypokalemia E87.6 - Hypokalemia (ICD-10) Pneumonia J18.9 - Pneumonia, unspecified organism (ICD-10) Depression F32.9 - Major depressive disorder, single episode, unspecified (ICD-10) CAD (coronary artery disease) I25.10 - Atherosclerotic heart disease of [place] coronary artery without angina pectoris (ICD-10) Ovarian cyst N83.20 - Unspecified ovarian cysts (ICD-10) Surgical History History of intravascular stent placement L leg 12/10 Z95.828 - Presence of other vascular implants and grafts (ICD-10) Family History FATHER Colon cancer Mother Colon cancer Other Pancreatic cancer Social History Smoking and tobacco status: Former smoker Tobacco: How many years used: 50 How long ago did patient quit smoking: Quit age 69 Second hand smoke exposure: Yes Alcohol intake: never Substance use type: does not use Household members: children Housing: house Marital status: W / Lives independently: Yes (daughter) Number of children: 4 Current occupational status: retired History of recent travel: No Current gender identity: female Seatbelt use: always Water heater temperature set < 120 degrees: Yes Working smoke detector in home: Yes Fire extinguisher in home: Yes Carbon monoxide detector in home: Yes Allergies Allergies Allergy/AdvReac Type Severity Reaction Status Date / Time denosumab [From Prolia] AdvReac Unknown Verified 02/11/23 11:55 propoxyphene HCl AdvReac Unknown Verified 02/11/23 11:55 [From Darvon] Current Medications Home Medications azelastine 0.05 % eye drops 1 drp BOTHEYES BID 05/23/22 [History Confirmed 02/11/23 Last Taken 07/21/22 21:00] nystatin 100,000 unit/gram topical powder (Nystop) 1 applic topical QID PRN Redness #15 grams 07/25/22 [Rx Confirmed 02/11/23 Last Taken Unknown] C.COMMODE #1 ea 10/15/22 [Rx Confirmed 02/11/23 Last Taken Unknown] clotrimazole-betamethasone 1 %-0.05 % topical cream 1 applic topical BID #15 grams 11/11/22 [Rx Confirmed 02/11/23 Last Taken Unknown] fenofibrate 54 mg tablet See Rx Instructions .Route .COMPLEX #30 tabs 12/05/22 [Rx Confirmed 02/11/23 Last Taken Unknown] alprazolam 0.5 mg tablet 0.5 mg PO TID PRN Anxiety/Restlessness #90 tabs 01/02/23 [Rx Confirmed 02/11/23 Last Taken Unknown] amlodipine 2.5 mg tablet See Rx Instructions .Route .COMPLEX #60 tabs 01/02/23 [Rx Confirmed 02/11/23 Last Taken Unknown] atorvastatin 40 mg tablet See Rx Instructions .Route .COMPLEX #30 tabs 01/02/23 [Rx Confirmed 02/11/23 Last Taken Unknown] calcium carbonate 600 mg-vitamin D3 10 mcg (400 unit) tablet See Rx Instructions .Route .COMPLEX #60 tabs 01/02/23 [Rx Confirmed 02/11/23 Last Taken Unknown] cetirizine 10 mg tablet (Allergy Relief (cetirizine)) See Rx Instructions .Route .COMPLEX #30 ea 01/02/23 [Rx Confirmed 02/11/23 Last Taken Unknown] ferrous sulfate 325 mg (65 mg iron) tablet (FeroSul) See Rx Instructions .Route .COMPLEX #30 tabs 01/02/23 [Rx Confirmed 02/11/23 Last Taken Unknown] furosemide 20 mg tablet See Rx Instructions .Route .COMPLEX #12 tabs 01/02/23 [Rx Confirmed 02/11/23 Last Taken Unknown] gabapentin 100 mg capsule See Rx Instructions .Route .COMPLEX #120 caps 01/02/23 [Rx Confirmed 02/11/23 Last Taken Unknown] ondansetron HCl 4 mg tablet See Rx Instructions .Route .COMPLEX #20 tabs 01/02/23 [Rx Confirmed 02/11/23 Last Taken Unknown] escitalopram oxalate 10 mg tablet See Rx Instructions .Route .COMPLEX #30 tabs 01/30/23 [Rx Confirmed 02/11/23 Last Taken Unknown] hydrocodone 5 mg-acetaminophen 325 mg tablet 1 tab PO TID PRN Pain, Moderate #90 tabs 01/30/23 [Rx Confirmed 02/11/23 Last Taken Unknown] levothyroxine 75 mcg tablet See Rx Instructions .Route .COMPLEX #30 tabs 01/30/23 [Rx Confirmed 02/11/23 Last Taken Unknown] potassium chloride 10 mEq tablet,extended release(part/cryst) See Rx Instructions .Route .COMPLEX #12 tabs 01/30/23 [Rx Confirmed 02/11/23 Last Taken Unknown] dexamethasone 6 mg tablet 6 mg PO DAILY 7 days #7 tabs 02/05/23 [Rx Confirmed 02/11/23 Last Taken Unknown] warfarin 5 mg tablet 5 mg PO QPM #30 tabs 02/05/23 [Rx Confirmed 02/11/23 Last Taken Unknown] Home Acetaminophen (Acetaminophen 325 Mg Tablet) 650 mg PO Q4H PRN PRN Reason: Mild Pain Albuterol Sulfate (Albuterol Sulfate 0.083% Vial.Neb) 2.5 mg NEB RTQ4H PRN PRN Reason: Wheezing Albuterol/Ipratropium (Ipratropium/Albuterol Vial.Neb) 3 ml NEB RTQ4H CHUY Furosemide (Furosemide Inj 40 Mg/4 Ml Vial) 40 mg IVP BIDAC2 CHUY Potassium Chloride (Potassium Chloride 20 Meq/100 Ml Premix) 40 meq in 200 mls @ 50 mls/hr IV ONCE ONE Stop: 02/11/23 17:34 CEFTRIAXONE/D5W 1 GM PREMIX (Rocephin 1 Gm/50 Ml D5w) 1 gm in 50 mls @ 100 mls/hr IV DAILY CHUY Stop: 02/15/23 08:59 Ondansetron HCl (Ondansetron Hcl/Pf 4 Mg/2 Ml Sdv) 4 mg IVP Q6H PRN PRN Reason: Nausea / Vomiting Discontinued Medications Acetaminophen (Acetaminophen 325 Mg Tablet) 650 mg PO ONCE STA Stop: 02/11/23 12:07 Last Admin: 02/11/23 12:20 Dose: 650 mg CEFTRIAXONE/D5W 1 GM PREMIX (Rocephin 1 Gm/50 Ml D5w) 1 gm in 50 mls @ 100 mls/hr IV ONCE ONE Stop: 02/11/23 13:24 Last Admin: 02/11/23 13:18 Dose: 100 mls/hr Potassium Chloride (Potassium Chloride 40 Meq/30 Ml Cup) 40 meq PO ONCE STA Stop: 02/11/23 12:56 Last Admin: 02/11/23 13:17 Dose: 40 meq Potassium Chloride (Potassium Chloride 20 Meq Tab) 40 meq PO ONCE ONE Stop: 02/11/23 13:36 Review of Systems Constitutional: Reports Fatigue and Weakness Head: Reports Normocephalic and Atraumatic Eyes: Reports No symptoms Ears: Reports No symptoms Nose: Reports No symptoms Mouth: Reports No symptoms Throat: Reports No symptoms Cardiovascular: Reports No symptoms Respiratory: Reports Cough (productive, clear sputum) Gastrointestinal: Reports No symptoms Genitourinary: Reports No Symptoms Musculoskeletal: Reports No symptoms Endocrine: Reports No symptoms Hematology: Reports No symptoms Immunology: Reports No symptoms Neurological: Reports No symptoms Psychiatric: Reports No symptoms Physical examination Most Recent Vital Signs: Most Recent Vital Signs Temperature 97.7 F 02/11/23 14:44 Temperature Source Oral 02/11/23 14:44 Temperature Source Infrared 02/11/23 14:19 Pulse Rate 72 02/11/23 14:44 Respiratory Rate 17 02/11/23 14:44 Blood Pressure 153/57 H 02/11/23 14:19 Blood Pressure Left Arm 127/57 02/11/23 14:44 Blood Pressure Position Sitting 02/11/23 14:44 O2 Sat by Pulse Oximetry 93 L 02/11/23 14:44 Oxygen Delivery Method Nasal Cannula 02/11/23 14:44 Oxygen Flow Rate 4 02/11/23 14:44 Height 5 ft 2 in 02/11/23 14:44 Weight 124 lb 02/11/23 14:44 Telemetry Heart Rate 68 02/05/23 13:00 Telemetry SPO2 96 02/05/23 13:00 Appearance: Positive No Apparent Distress, Alert and Oriented x3 and Ill- Appearing Skin: Positive Warm and Other (pale) HEENT: Positive Normocephalic and PERRLA Neck: Positive Supple and Midline Trachea Chest/Lungs: Positive Symmetrical With Equal Breath Sounds and Good Air Movement all 4 Lung [place] (diminished) Heart: Positive RRR and Pulses Normal GI/: Positive Soft, Nontender, Bowel Sounds Normal and No Distention Musculoskeletal: Positive Not Examined Extremities: Positive Amputations (L AKA), Intact Peripheral Pulses, Stable Joints Without Laxity and Good ROM in All Joints Neurological: Positive Sensation Intact, Motor intact, Reflexes Intact, Alert, Oriented and Other (Generalized weakness) Psychiatric: Positive Oriented x4 Labs This Visit Labs This Visit: Labs This Visit 02/11/23 02/11/23 02/11/23 12:15 12:16 12:20 WBC 10.16 RBC 4.90 Hgb 14.6 Hct 45.0 MCV 91.8 MCH 29.8 MCHC 32.4 RDW Coeff of Nataliya 14.6 Plt Count 147 Immature Gran % (Auto) 0.6 Neut % (Auto) 87.9 H Lymph % (Auto) 8.0 L [place] % (Auto) 3.4 Eos % (Auto) 0.0 Baso % (Auto) 0.1 Neut # (Auto) 8.9 H Lymph # (Auto) 0.8 [place] # (Auto) 0.4 Eos # (Auto) 0.0 Baso # (Auto) 0.0 Immature Gran # (Auto) 0.1 PT 58.4 H INR 6.02 H* APTT 49.7 H Puncture Site Rrad Base Excess 18.4 H O2 Saturation 90.6 L ABG pH 7.58 H* ABG pCO2 43.0 ABG pO2 50.0 L* ABG HCO3 40.3 H ABG Total CO2 41.6 H Micheal Test Pos Hemoglobin 1.0 Oxyhemoglobin 85.2 L Carboxyhemoglobin 2.3 H Total Hemoglobin 15.2 O2 Delivery Device Cannula Oxygen Liter Flow 2.00 Sodium 135.5 Potassium 2.91 L Chloride 94.1 L Carbon Dioxide 35.1 H Anion Gap 9.21 BUN 25.3 H Creatinine 1.07 Estimated GFR (MDRD) 48.00 BUN/Creatinine Ratio 23.64 Glucose 88.1 Lactic Acid 1.46 Calcium 10.01 Total Bilirubin 1.24 AST 28.7 ALT 22.3 Alkaline Phosphatase 58.9 Troponin I 0.021 NT-Pro-B Natriuret Pep 2040 H Total Protein 6.74 Albumin 3.75 Globulin 2.99 Albumin/Globulin Ratio 1.25 Urine Color Yellow Urine Clarity Slightly Urine pH 7.0 Ur Specific [place] 1.015 Urine Protein Trace H Urine Glucose (UA) Negative Urine Ketones Negative Urine Blood 2+ H Urine Nitrite Negative Urine Bilirubin Negative Urine Urobilinogen 1.0 H Ur Leukocyte Esterase 3+ H Urine Microscopic RBC 10-20 Urine Microscopic WBC 20-30 Ur Squamous Epith Cells 5-10 Ur Renal Epithelial Cell 2-5 Amorphous Sediment 2+ Urine Bacteria 2+ SARS CoV-2 RNA Rapid TUCKER 02/11/23 14:00 WBC RBC Hgb Hct MCV MCH MCHC RDW Coeff of Nataliya Plt Count Immature Gran % (Auto) Neut % (Auto) Lymph % (Auto) [place] % (Auto) Eos % (Auto) Baso % (Auto) Neut # (Auto) Lymph # (Auto) [place] # (Auto) Eos # (Auto) Baso # (Auto) Immature Gran # (Auto) PT INR APTT Puncture Site Base Excess O2 Saturation ABG pH ABG pCO2 ABG pO2 ABG HCO3 ABG Total CO2 Micheal Test Hemoglobin Oxyhemoglobin Carboxyhemoglobin Total Hemoglobin O2 Delivery Device Oxygen Liter Flow Sodium Potassium Chloride Carbon Dioxide Anion Gap BUN Creatinine Estimated GFR (MDRD) BUN/Creatinine Ratio Glucose Lactic Acid Calcium Total Bilirubin AST ALT Alkaline Phosphatase Troponin I NT-Pro-B Natriuret Pep Total Protein Albumin Globulin Albumin/Globulin Ratio Urine Color Urine Clarity Urine pH Ur Specific [place] Urine Protein Urine Glucose (UA) Urine Ketones Urine Blood Urine Nitrite Urine Bilirubin Urine Urobilinogen Ur Leukocyte Esterase Urine Microscopic RBC Urine Microscopic WBC Ur Squamous Epith Cells Ur Renal Epithelial Cell Amorphous Sediment Urine Bacteria SARS CoV-2 RNA Rapid TUCKER Positive H Imaging Imaging: EXAM: CHEST ONE-VIEW HISTORY: Cough COMPARISON: 02/03/2023 FINDINGS: Hyperinflation is noted. Chronic changes present the pulmonary parenchyma. The pulmonary vascular markings are slightly indistinct. There is slight blunting of the right costophrenic angle. This may represent mild or early changes of congestive failure. Cardiac silhouette is moderately enlarged. Vascular calcifications present in the aortic arch and descending thoracic aorta. Cardiac monitoring leads are present. IMPRESSION: Mild or early changes of pulmonary vascular congestion superimposed on chronic obstructive pulmonary disease and chronic change in the pulmonary parenchyma. Review Statement Review Statement: I have independently reviewed and interpreted the labs/EKGs/imaging that were ordered by the ER provider. I have reviewed all outside records that are available currently in our EMR including imaging/notes/labs from previous visits. Plan Plan: 1. Acute Hypoxic Respiratory Failure in the setting of CHF and Covid-19 - PO2 50% on ABG, wean O2 as tolerated, nebs, lasix 40 mg BID IVP, repeat ABG in am 2. Acute CHF Exacerbation - last echo done in 2020 EF 60%, vascular congestion noted on x-ray; repeat echo in am, lasix 40 mg BID IVP, daily weight, strict I&O 3. UTI - urine culture pending, rocephin 1G Q24H 4. Hypokalemia - replacement ordered, repeat cmp in am, telemetry 5. Supratherapeutic INR - holding warfarin, repeat INR daily 6. Covid-19 - 10 day isolation complete on 02/12, wean oxygen, nebs 7. Hypertension - chronic, continue home medications 8. Hyperlipidemia - chronic, continue home medications 9. Hypothyroidism - chronic, continue home medications DVT Prophylaxis: YUKI salgado Time Spent: Greater than 80 minutes spent with patient, 50% of the time spent with this patient was devoted to counseling and coordination of care. [facility]in minutes spent discussing advance care planning. Disposition: Admit to: Med/Surg Inpatient DNR Discussed Plan of Care with Dr. Eulalia Sagastume. Medications Medication Orders: Medications Ordered Category Date Time Status Acetaminophen [Tylenol] Meds 02/11/23 13:35 Active 650 mg PO Q4H PRN Albuterol Sulfate 0.083% Neb [Albuterol 0.083% Neb] Meds 02/11/23 15:04 Ordered 2.5 mg NEB RTQ4H PRN Ceftriaxone/D5w 1 gm Premix [Rocephin 1 gm/50 ml D5w] Meds 02/12/23 09:00 Active 1 gm in 50 ml IV DAILY Furosemide [Lasix] Meds 02/11/23 17:00 Active 40 mg IVP BIDAC2 Ipratropium/Albuterol Neb [Duoneb] Meds 02/11/23 18:00 Ordered 3 ml NEB RTQ4H Ondansetron HCl/Pf [Zofran 4 mg/2 ml] Meds 02/11/23 13:35 Active 4 mg IVP Q6H PRN Potassium Chloride [Potassium Chloride 20 Meq/100 ml Meds 02/11/23 13:35 Active Premix] 40 meq in 200 ml IV ONCE
[2023-02-11] MEDS ORDERED: LOTRISONE 45 GM TP PRN (15:21)
[2023-02-11] MEDS ORDERED: NYSTOP POWDER TP PRN (15:21)
[2023-02-11] MEDS ORDERED: NON-FORMULARY MEDICATION (Cetirizine [Allergy Relief (Cetirizine)] 10 mg tablet) SCH (15:30)
[2023-02-11] MEDS ORDERED: CALCIUM CARBONATE VITAMIN D3 SCH (15:30)
[2023-02-11] MEDS: LASIX IVP SCH (16:20)
[2023-02-11] MEDS: XANAX PO PRN ×2 (16:20→20:35)
[2023-02-11] MEDS: NORCO 5-325 PO PRN (16:21)
[2023-02-11] MEDS: DUONEB NEB SCH ×2 (18:03→22:10)
[2023-02-11] MEDS: NORVASC PO SCH (20:34)
[2023-02-11] MEDS: CALCIUM 500 + VIT D 5 MCG (200 IU) TABLET PO SCH (20:34)
[2023-02-11] MEDS: NEURONTIN PO SCH (20:34)
[2023-02-11] MEDS: LIPITOR PO SCH (20:34)
[2023-02-11] MEDS: NON-FORMULARY MEDICATION (Azelastine 0.05 % drops) EACHEYE SCH (20:35)
[2023-02-11] MEDS ORDERED: ZOFRAN TAB PO PRN (21:00)
[2023-02-12] MEDS: DUONEB NEB SCH ×6 (01:45→22:10)
[2023-02-12] MEDS: TYLENOL PO PRN ×2 (03:06→19:18)
[2023-02-12 05:00] LABS: ABG O2 HGB 91.9 % (95-100); BEecf 11.9 (-2.0-3.0); COHb 3.2 (0.5-1.5); HCO3 33.8 (21-28); TCO2 34.9 (19-24); sO2 95.4 % (94-98); tHb 15.4 g/dl (11.7-17.4)
[2023-02-12] MEDS: LASIX IVP SCH ×3 (05:00→20:48)
[2023-02-12 05:05] LABS: ABG PH 7.58 (7.35-7.45)
[2023-02-12 05:09] LABS: BASOPHILS % (AUTO) 0.1 % (0.0-3.0); HEMATOCRIT 45.3 % (37.0-47.0); HEMOGLOBIN 14.9 g/dl (12.0-16.0); IMMATURE GRANULOCYTE # (AUTO) 0.1 (0.0-1.0); IMMATURE GRANULOCYTE % (AUTO) 0.6 % (0.0-5.0); LYMPHOCYTES # (AUTO) 0.5 K/uL (0.60-3.4); LYMPHOCYTES % (AUTO) 4.3 (10.0-50.0); MEAN CORPUSCULAR HEMOGLOBIN 30.2 pg (27.0-31.0); MEAN CORPUSCULAR HGB CONC 32.9 (31.8-35.4); MEAN CORPUSCULAR VOLUME 91.7 fl (81.0-99.0); MONOCYTES # (AUTO) 0.5 K/uL (0.4-2.0); MONOCYTES % (AUTO) 4.3 (0-10); NEUTROPHILS # (AUTO) 9.9 K/ul (2.0-6.9); NEUTROPHILS % (AUTO) 90.7 % (42.2-75.2); PLATELET COUNT 165 10^3/uL (140-440); RDW COEFFICIENT OF VARIATION 14.9 % (11.6-14.8); RED BLOOD COUNT 4.94 10^6/ul (4.20-5.40); WHITE BLOOD COUNT 10.92 K/ul (4.6-10.2)
[2023-02-12] MEDS: SYNTHROID PO SCH (05:12)
[2023-02-12 05:29] LABS: ALANINE AMINOTRANSFERASE 31.7 U/L (0-35); ALBUMIN 3.75 g/dL (3.5-5.0); ALKALINE PHOSPHATASE 71.6 U/L (53-141); ASPARTATE AMINO TRANSFERASE 55.5 U/L (14-36); BILIRUBIN,TOTAL 1.16 mg/dL (0.2-1.3); BLOOD UREA NITROGEN 25.6 mg/dL (7-17); CALCIUM 9.49 mg/dL (8.4-10.2); CHLORIDE 97.7 mmol/L (98-107); CREATININE 1.08 mg/dL (0.60-1.30); GLUCOSE 118.7 mg/dL (74-106); POTASSIUM 3.11 mmol/L (3.5-5.1); SODIUM 135.3 mmol/L (134.5-145); TOTAL PROTEIN 6.89 g/dL (6.3-8.2)
[2023-02-12 05:39] LABS: PROTHROMBIN TIME 42.8 SEC (9.3-11.0)
[2023-02-12] MEDS: TRIGLIDE PO SCH (09:12)
[2023-02-12] MEDS: LEXAPRO PO SCH (09:12)
[2023-02-12] MEDS: CALCIUM 500 + VIT D 5 MCG (200 IU) TABLET PO SCH ×2 (09:12→20:32)
[2023-02-12] MEDS: CLARITIN PO SCH (09:13)
[2023-02-12] MEDS: NORVASC PO SCH ×2 (09:13→20:32)
[2023-02-12] MEDS: ROCEPHIN 1 GM/50 ML D5W 1 GM/50 ML BAG IV SCH (09:14)
[2023-02-12] MEDS ORDERED: K-DUR PO ONE (09:19)
--- NOTE | 2023-02-12 09:20 | PCM.PROG ---
Date/Time Seen Date Seen by Provider: 02/12/23 Time Seen by Provider: 09:00 Provider Provider: KONSTANTIN HILLMAN, [facility] Chief Complaint Chief Complaint: UTI; ACUTE RESP FAILURE; SUPNATHERAPUTIC INR Subjective Subjective: Had 103 fever overnight. No other events. Continuing to require oxygen at 4L - baseline of 2. Patient has complaints of feeling weak and her extremities feeling "heavy" Objective Appearance: Positive No Apparent Distress, Alert and Oriented x3 and Ill-Appe aring Chest/Lungs: Positive Symmetrical With Equal Breath Sounds, Good Air Movement all 4 Lung [place] (diminished) and Other (mild crackles to RLL) Heart: Positive RRR and Pulses Normal GI/: Positive Soft, Nontender and Bowel Sounds Normal Musculoskeletal: Positive Not Examined Neurological: Positive Sensation Intact, Motor intact, Reflexes Intact, Alert and Oriented Vital Signs Vital Signs: Vital Signs: Last 24 Hours 02/11/23 11:59 02/11/23 12:00 02/11/23 12:28 Temperature 100.6 F H Temperature Source Oral Pulse Rate 81 Respiratory Rate 30 H Blood Pressure 174/64 H Blood Pressure Mean Blood Pressure Left Arm Blood Pressure Location Blood Pressure Position O2 Sat by Pulse Oximetry 92 L Oxygen Delivery Method Oxygen Flow Rate 2 4 Height 5 ft 2 in Weight 129 lb 3.054 oz Telemetry Type Telemetry Monitoring Irregular Telemetry Rate (Approximate) Telemetry Heart Rate Telemetry SPO2 EKG TN Interval EKG QRS Interval Telemetry Strip Reading 02/11/23 12:30 02/11/23 13:30 02/11/23 14:19 Temperature 98.9 F Temperature Source Infrared Pulse Rate 80 82 Respiratory Rate Blood Pressure 164/61 H 128/57 L 153/57 H Blood Pressure Mean Blood Pressure Left Arm Blood Pressure Location Blood Pressure Position O2 Sat by Pulse Oximetry 92 L 94 L 90 L Oxygen Delivery Method Oxygen Flow Rate 4 4 4 Height Weight Telemetry Type Telemetry Monitoring Irregular Telemetry Rate (Approximate) Telemetry Heart Rate Telemetry SPO2 EKG TN Interval EKG QRS Interval Telemetry Strip Reading 02/11/23 14:44 02/11/23 14:44 02/11/23 15:07 Temperature 97.7 F Temperature Source Oral Pulse Rate 72 Respiratory Rate 17 Blood Pressure Blood Pressure Mean Blood Pressure Left Arm 127/57 Blood Pressure Location Blood Pressure Position Sitting O2 Sat by Pulse Oximetry 93 L Oxygen Delivery Method Nasal Cannula Nasal Cannula Oxygen Flow Rate 4 4 Height 5 ft 2 in Weight 124 lb Telemetry Type Bedside Monitor Telemetry Monitoring Continues Irregular Telemetry Rate (Approximate) Telemetry Heart Rate 59 L Telemetry SPO2 97 EKG TN Interval 0.12 EKG QRS Interval 0.06 Telemetry Strip Reading SR 02/11/23 15:27 02/11/23 19:00 02/11/23 19:23 Temperature Temperature Source Pulse Rate Respiratory Rate 20 Blood Pressure Blood Pressure Mean Blood Pressure Left Arm Blood Pressure Location Blood Pressure Position O2 Sat by Pulse Oximetry 94 L Oxygen Delivery Method Nasal Cannula Nasal Cannula Oxygen Flow Rate 4 4 Height Weight Telemetry Type Remote Telemetry Telemetry Monitoring Continues Irregular Telemetry Rate (Approximate) Telemetry Heart Rate 66 Telemetry SPO2 93 EKG TN Interval 0.15 EKG QRS Interval 0.07 Telemetry Strip Reading SR 02/11/23 20:00 02/11/23 21:10 02/12/23 00:03 Temperature 98.9 F 98.4 F Temperature Source Oral Temporal Artery Scan Pulse Rate 62 Respiratory Rate 23 H 28 H Blood Pressure 129/58 L 154/80 H Blood Pressure Mean 81 104 Blood Pressure Left Arm Blood Pressure Location Left Arm Left Arm Blood Pressure Position Sitting Sitting O2 Sat by Pulse Oximetry 95 95 92 L Oxygen Delivery Method Nasal Cannula Nasal Cannula Nasal Cannula Oxygen Flow Rate 4 4 4 Height Weight Telemetry Type Telemetry Monitoring Irregular Telemetry Rate (Approximate) Telemetry Heart Rate Telemetry SPO2 EKG TN Interval EKG QRS Interval Telemetry Strip Reading 02/12/23 01:00 02/12/23 03:00 02/12/23 03:56 Temperature 103.1 F H 102.3 F H Temperature Source Oral Oral Pulse Rate 93 104 H Respiratory Rate 40 H 32 H Blood Pressure 157/65 H 151/58 H Blood Pressure Mean 95 89 Blood Pressure Left Arm Blood Pressure Location Left Arm Left Arm Blood Pressure Position Supine Supine O2 Sat by Pulse Oximetry 88 L 91 L Oxygen Delivery Method Nasal Cannula Nasal Cannula Oxygen Flow Rate 5 5 Height Weight Telemetry Type Remote Telemetry Telemetry Monitoring Continues Irregular Telemetry Rate (Approximate) Telemetry Heart Rate 83 Telemetry SPO2 91 L EKG TN Interval 0.11 L EKG QRS Interval 0.09 Telemetry Strip Reading SR 02/12/23 05:14 02/12/23 06:00 02/12/23 06:00 Temperature 100.2 F Temperature Source Oral Pulse Rate 102 H Respiratory Rate 31 H Blood Pressure 131/60 Blood Pressure Mean 83 Blood Pressure Left Arm Blood Pressure Location Left Arm Blood Pressure Position Supine O2 Sat by Pulse Oximetry 90 L Oxygen Delivery Method Nasal Cannula Nasal Cannula Oxygen Flow Rate 4 4 Height Weight 120 lb 6 oz Telemetry Type Telemetry Monitoring Irregular Telemetry Rate (Approximate) Telemetry Heart Rate Telemetry SPO2 EKG TN Interval EKG QRS Interval Telemetry Strip Reading 02/12/23 06:19 02/12/23 07:00 02/12/23 08:00 Temperature 99.9 F Temperature Source Oral Pulse Rate Respiratory Rate 26 H Blood Pressure Blood Pressure Mean Blood Pressure Left Arm Blood Pressure Location Blood Pressure Position O2 Sat by Pulse Oximetry 92 L Oxygen Delivery Method Nasal Cannula Nasal Cannula Oxygen Flow Rate 4 4 Height Weight Telemetry Type Remote Telemetry Telemetry Monitoring Continues Irregular Telemetry Rate (Approximate) 80-90 BPM Telemetry Heart Rate 88 Telemetry SPO2 93 EKG TN Interval 0.14 EKG QRS Interval 0.08 Telemetry Strip Reading SR with frequent PACs 02/12/23 09:03 Temperature 99.3 F Temperature Source Oral Pulse Rate 82 Respiratory Rate 24 H Blood Pressure 141/63 H Blood Pressure Mean 89 Blood Pressure Left Arm Blood Pressure Location Left Arm Blood Pressure Position Supine O2 Sat by Pulse Oximetry 90 L Oxygen Delivery Method Nasal Cannula Oxygen Flow Rate 4 Height Weight Telemetry Type Telemetry Monitoring Irregular Telemetry Rate (Approximate) Telemetry Heart Rate Telemetry SPO2 EKG TN Interval EKG QRS Interval Telemetry Strip Reading Lab Results Lab Results: Lab Results: Last 24 Hours 02/12/23 02/12/23 02/11/23 05:01 04:55 14:00 WBC 10.92 H RBC 4.94 Hgb 14.9 Hct 45.3 MCV 91.7 MCH 30.2 MCHC 32.9 RDW Coeff of Nataliya 14.9 H Plt Count 165 Immature Gran % (Auto) 0.6 Neut % (Auto) 90.7 H Lymph % (Auto) 4.3 L Yancey % (Auto) 4.3 Eos % (Auto) 0.0 Baso % (Auto) 0.1 Neut # (Auto) 9.9 H Lymph # (Auto) 0.5 L Yancey # (Auto) 0.5 Eos # (Auto) 0.0 Baso # (Auto) 0.0 Immature Gran # (Auto) 0.1 PT 42.8 H D INR 4.36 H* APTT Puncture Site Rbrach Base Excess 11.9 H O2 Saturation 95.4 ABG pH 7.58 H* ABG pCO2 36.0 ABG pO2 65.0 L ABG HCO3 33.8 H ABG Total CO2 34.9 H Micheal Test Pos Hemoglobin 1.0 Oxyhemoglobin 91.9 L Carboxyhemoglobin 3.2 H Total Hemoglobin 15.4 O2 Delivery Device Cannula Oxygen Liter Flow 2.00 Sodium 135.3 Potassium 3.11 L Chloride 97.7 L Carbon Dioxide 30.0 Anion Gap 10.71 BUN 25.6 H Creatinine 1.08 Estimated GFR (MDRD) 48.00 BUN/Creatinine Ratio 23.70 Glucose 118.7 H Lactic Acid Calcium 9.49 Total Bilirubin 1.16 AST 55.5 H D ALT 31.7 Alkaline Phosphatase 71.6 Troponin I NT-Pro-B Natriuret Pep Total Protein 6.89 Albumin 3.75 Globulin 3.14 Albumin/Globulin Ratio 1.19 Urine Color Urine Clarity Urine pH Ur Specific Pax Urine Protein Urine Glucose (UA) Urine Ketones Urine Blood Urine Nitrite Urine Bilirubin Urine Urobilinogen Ur Leukocyte Esterase Urine Microscopic RBC Urine Microscopic WBC Ur Squamous Epith Cells Ur Renal Epithelial Cell Amorphous Sediment Urine Bacteria SARS CoV-2 RNA Rapid TUCKER Positive H 02/11/23 02/11/23 02/11/23 12:20 12:16 12:15 WBC 10.16 RBC 4.90 Hgb 14.6 Hct 45.0 MCV 91.8 MCH 29.8 MCHC 32.4 RDW Coeff of Nataliya 14.6 Plt Count 147 Immature Gran % (Auto) 0.6 Neut % (Auto) 87.9 H Lymph % (Auto) 8.0 L Yancey % (Auto) 3.4 Eos % (Auto) 0.0 Baso % (Auto) 0.1 Neut # (Auto) 8.9 H Lymph # (Auto) 0.8 Yancey # (Auto) 0.4 Eos # (Auto) 0.0 Baso # (Auto) 0.0 Immature Gran # (Auto) 0.1 PT 58.4 H INR 6.02 H* APTT 49.7 H Puncture Site Rrad Base Excess 18.4 H O2 Saturation 90.6 L ABG pH 7.58 H* ABG pCO2 43.0 ABG pO2 50.0 L* ABG HCO3 40.3 H ABG Total CO2 41.6 H Micheal Test Pos Hemoglobin 1.0 Oxyhemoglobin 85.2 L Carboxyhemoglobin 2.3 H Total Hemoglobin 15.2 O2 Delivery Device Cannula Oxygen Liter Flow 2.00 Sodium 135.5 Potassium 2.91 L Chloride 94.1 L Carbon Dioxide 35.1 H Anion Gap 9.21 BUN 25.3 H Creatinine 1.07 Estimated GFR (MDRD) 48.00 BUN/Creatinine Ratio 23.64 Glucose 88.1 Lactic Acid 1.46 Calcium 10.01 Total Bilirubin 1.24 AST 28.7 ALT 22.3 Alkaline Phosphatase 58.9 Troponin I 0.021 NT-Pro-B Natriuret Pep 2040 H Total Protein 6.74 Albumin 3.75 Globulin 2.99 Albumin/Globulin Ratio 1.25 Urine Color Yellow Urine Clarity Slightly Urine pH 7.0 Ur Specific Pax 1.015 Urine Protein Trace H Urine Glucose (UA) Negative Urine Ketones Negative Urine Blood 2+ H Urine Nitrite Negative Urine Bilirubin Negative Urine Urobilinogen 1.0 H Ur Leukocyte Esterase 3+ H Urine Microscopic RBC 10-20 Urine Microscopic WBC 20-30 Ur Squamous Epith Cells 5-10 Ur Renal Epithelial Cell 2-5 Amorphous Sediment 2+ Urine Bacteria 2+ SARS CoV-2 RNA Rapid TUCKER Additional Comments Additional Comments: I have independently reviewed and interpreted the labs/EKGs/imaging ordered during this hospital stay. I have reviewed outside records that are available in our EMR that pertain to medical stay including imaging/notes/labs from previous visits. Active Medications Active Medications: Medications Generic Name Dose Route Start Last Admin Trade Name Freq PRN Reason Stop Dose Admin Acetaminophen 650 mg 02/11/23 13:35 02/12/23 03:06 Acetaminophen 325 Mg Tablet PO 650 mg Q4H PRN Administration Mild Pain Hydrocodone Bitart/Acetaminophen 1 tab 02/11/23 15:21 02/11/23 16:21 Hydrocodone Bit/Acetaminophen 5/325 Mg Tablet PO 1 tab TID PRN Administration Pain Albuterol Sulfate 2.5 mg 02/11/23 15:04 02/12/23 03:07 Albuterol Sulfate 0.083% Vial.Neb NEB 2.5 mg RTQ4H PRN Administration Wheezing Albuterol/Ipratropium 3 ml 02/11/23 18:00 02/12/23 04:35 Ipratropium/Albuterol Vial.Neb NEB 3 ml RTQ4H CHUY Administration Alprazolam 0.5 mg 02/11/23 15:21 02/11/23 20:35 Alprazolam 0.5 Mg Tablet PO 0.5 mg TID PRN Administration Anxiety Amlodipine Besylate 2.5 mg 02/11/23 21:00 02/12/23 09:13 Amlodipine Besylate 5 Mg Tablet PO 2.5 mg BID CHUY Administration Atorvastatin Calcium 40 mg 02/11/23 21:00 02/11/23 20:34 Atorvastatin Calcium 20 Mg Tablet PO 40 mg BEDTIME CHUY Administration Calcium/Vitamin D 1 each 02/11/23 21:00 02/12/23 09:12 Calcium Carbonate/Vitamin D3 500 Mg/5 Mcg(200iu) 1 Each Tablet PO 1 each BID CHUY Administration Clotrimazole 1 applic 02/11/23 15:21 Clotrimazole/Betamethasone 45 Gm Cream TP BID PRN Rash Escitalopram Oxalate 10 mg 02/12/23 09:00 02/12/23 09:12 Escitalopram Oxalate 10 Mg Tablet PO 10 mg DAILY CHUY Administration Fenofibrate 54 mg 02/12/23 09:00 02/12/23 09:12 Fenofibrate 54 Mg Tablet PO 54 mg DAILY CHUY Administration Furosemide 40 mg 02/11/23 17:00 02/12/23 05:00 Furosemide Inj 40 Mg/4 Ml Vial IVP 40 mg BIDAC2 CHUY Administration Gabapentin 100 mg 02/12/23 09:00 Gabapentin 100 Mg Capsule PO 0900,1200 CHUY Gabapentin 200 mg 02/11/23 21:00 02/11/23 20:34 Gabapentin 100 Mg Capsule PO 200 mg BEDTIME CHUY Administration CEFTRIAXONE/D5W 1 GM PREMIX 1 gm in 50 mls @ 100 mls/hr 02/12/23 09:00 02/12/23 09:14 Rocephin 1 Gm/50 Ml D5w IV 02/15/23 08:59 100 mls/hr DAILY CHUY Administration Levothyroxine Sodium 75 mcg 02/12/23 06:00 02/12/23 05:12 Levothyroxine Sodium 75 Mcg Tablet PO 75 mcg QDAC2 CHUY Administration Loratadine 10 mg 02/12/23 09:00 02/12/23 09:13 Loratadine 10 Mg Tablet PO 10 mg DAILY CHUY Administration Non-Formulary Medication 1 drop 02/11/23 21:00 02/11/23 20:35 Azelastine EACHEYE Not Given BID [facility] Nystatin 1 applic 02/11/23 15:21 Nystatin 15 Gm Powder TP QID PRN yeast Ondansetron HCl 4 mg 02/11/23 13:35 Ondansetron Hcl/Pf 4 Mg/2 Ml Sdv IVP Q6H PRN Nausea / Vomiting Ondansetron HCl 4 mg 02/11/23 21:00 Ondansetron Hcl 4 Mg Tablet PO BID PRN NAUSEA/VOMITING Potassium Chloride 40 meq 02/12/23 09:19 Potassium Chloride 20 Meq Tab PO 02/12/23 09:20 ONCE ONE Sodium Chloride 1 syr 02/12/23 13:00 0.9% Sodium Chloride 10 Ml Disp.Syrin IVF Q8HR [facility] Plan Plan: 1. Acute Hypoxic Respiratory Failure in the setting of CHF and Covid-19 - Unchanged, requiring 4L O2 at this time, wean O2 as tolerated, nebs, lasix 40 mg BID IVP, repeat ABG daily 2. Acute CHF Exacerbation - last echo done in 2020 EF 60%, vascular congestion noted on x-ray; echo pending, lasix 40 mg BID IVP, daily weight, strict I&O 3. UTI - urine culture growth gram negative rods, continue rocephin 1G Q24H 4. Hypokalemia - Improving, further replacement ordered, repeat cmp in am, telemetry 5. Supratherapeutic INR - Improving, hold warfarin, repeat INR daily 6. Covid-19 - 10 day isolation complete on 02/12, wean oxygen, nebs 7. Hypertension - chronic, continue home medications 8. Hyperlipidemia - chronic, continue home medications 9. Hypothyroidism - chronic, continue home medications DVT Prophylaxis: YUKI salgado Review Statement Review Statement: I have personally discussed and reviewed the patient's visit/currently labs/imaging/decision making with Dr. Sagastume, my supervising attending. Greater that 50 minutes spent with patient, 50% of the time spent with this patient was devoted to counseling and coordination of care.
[2023-02-12] MEDS: NEURONTIN PO SCH ×3 (09:21→20:32)
[2023-02-12] MEDS: NON-FORMULARY MEDICATION (Azelastine 0.05 % drops) EACHEYE SCH ×2 (09:22→20:31)
[2023-02-12] MEDS: LIPITOR PO SCH (20:32)
[2023-02-12] MEDS: XANAX PO PRN (20:32)
[2023-02-13] MEDS: DUONEB NEB SCH ×6 (02:20→21:18)
[2023-02-13] MEDS: LASIX IVP SCH ×2 (05:02→17:34)
[2023-02-13] MEDS: SYNTHROID PO SCH (05:03)
[2023-02-13 05:42] LABS: ABG O2 HGB 94.1 % (95-100); COHb 2.9 (0.5-1.5); MetHb 0.9 (0-1.5); TCO2 34.1 (19-24); sO2 96.8 % (94-98)
[2023-02-13 05:49] LABS: BASOPHILS % (AUTO) 0.1 % (0.0-3.0); HEMATOCRIT 43.9 % (37.0-47.0); HEMOGLOBIN 14.1 g/dl (12.0-16.0); IMMATURE GRANULOCYTE # (AUTO) 0.1 (0.0-1.0); IMMATURE GRANULOCYTE % (AUTO) 0.5 % (0.0-5.0); LYMPHOCYTES # (AUTO) 0.4 K/uL (0.60-3.4); LYMPHOCYTES % (AUTO) 4.2 (10.0-50.0); MEAN CORPUSCULAR HEMOGLOBIN 29.6 pg (27.0-31.0); MEAN CORPUSCULAR HGB CONC 32.1 (31.8-35.4); MONOCYTES # (AUTO) 0.5 K/uL (0.4-2.0); MONOCYTES % (AUTO) 5.4 (0-10); NEUTROPHILS # (AUTO) 8.2 K/ul (2.0-6.9); NEUTROPHILS % (AUTO) 89.8 % (42.2-75.2); PLATELET COUNT 185 10^3/uL (140-440); RDW COEFFICIENT OF VARIATION 15.1 % (11.6-14.8); RED BLOOD COUNT 4.77 10^6/ul (4.20-5.40); WHITE BLOOD COUNT 9.14 K/ul (4.6-10.2)
[2023-02-13 05:51] LABS: ABG PH 7.57 (7.35-7.45)
[2023-02-13 06:02] LABS: ALANINE AMINOTRANSFERASE 46.1 U/L (0-35); ALBUMIN 3.69 g/dL (3.5-5.0); ALKALINE PHOSPHATASE 67.7 U/L (53-141); ASPARTATE AMINO TRANSFERASE 56.8 U/L (14-36); BILIRUBIN,TOTAL 1.14 mg/dL (0.2-1.3); BLOOD UREA NITROGEN 28.8 mg/dL (7-17); CALCIUM 9.5 mg/dL (8.4-10.2); CARBON DIOXIDE 30.3 mmol/L (22-30.0); CHLORIDE 93.7 mmol/L (98-107); CREATININE 1.14 mg/dL (0.60-1.30); GLUCOSE 152.4 mg/dL (74-106); POTASSIUM 3.1 mmol/L (3.5-5.1); SODIUM 132.3 mmol/L (134.5-145); TOTAL PROTEIN 6.99 g/dL (6.3-8.2)
[2023-02-13 06:08] LABS: PROTHROMBIN TIME 20.5 SEC (9.3-11.0)
[2023-02-13] MEDS: CLARITIN PO SCH (08:53)
[2023-02-13] MEDS: CALCIUM 500 + VIT D 5 MCG (200 IU) TABLET PO SCH ×2 (08:53→20:53)
[2023-02-13] MEDS: NORVASC PO SCH ×2 (08:53→20:53)
[2023-02-13] MEDS: NORCO 5-325 PO PRN ×2 (08:54→21:49)
[2023-02-13] MEDS: LEXAPRO PO SCH (08:54)
[2023-02-13] MEDS: XANAX PO PRN ×2 (08:54→21:49)
[2023-02-13] MEDS: TRIGLIDE PO SCH (08:54)
[2023-02-13] MEDS: NEURONTIN PO SCH ×3 (09:37→20:53)
[2023-02-13] MEDS: ROCEPHIN 1 GM/50 ML D5W 1 GM/50 ML BAG IV SCH (09:37)
[2023-02-13] MEDS: NON-FORMULARY MEDICATION (Azelastine 0.05 % drops) EACHEYE SCH ×2 (09:38→21:02)
--- NOTE | 2023-02-13 09:46 | CT ---
EXAM: CT ANGIOGRAM CHEST. HISTORY: Shortness of breath. COMPARISON: Radiograph 02/11/2023. CT 02/03/2023, 07/26/2020. TECHNIQUE: Multiple axial images of the chest were obtained following intravenous administration of 100 mL Visipaque 320, low osmolar. Images were reformatted in the sagittal and coronal plane. 3-D a nd maximum intensity projection reformatted images were created on an independent workstation. FINDINGS: No pulmonary arterial filling defect is seen. Atherosclerotic calcifications in the aorta and coronary arteries. There is no aortic dissection. Heart is enlarged. No pericardial effusion detected. There is no mediastinal, hilar, or axillary lymphadenopathy identified. Moderate emphysema. Calcified granulomatous changes noted. There is consolidation in both lower lob es and to a lesser extent dependent upper lobe and right middle lobe. Trace amount of pleural fluid present bilaterally. There is no pneumothorax. Limited images of the upper abdomen demonstrate no acute abnormality. Stable left adrenal nodule and left renal cyst. Inferior vena cava filter noted. Old T7, L2 and L3 compression deformities. IMPRESSION: 1. No pulmonary embolus. The patient has an inferior vena cava filter. 2. Bilateral consolidation, greater dependently with trace pleural effusion which could be due to pn eumonia or edema. 3. Moderate emphysema. 4. Cardiomegaly and atherosclerosis. All CT scans are performed using dose optimization techniques as appropriate to the performed exam an d include at least one of the following: Automated exposure control, adjustment of the mA and/or kV according t o size, and the use of iterative reconstruction technique.
--- NOTE | 2023-02-13 10:08 | PCM.PROG ---
Date/Time Seen Date Seen by Provider: 02/13/23 Time Seen by Provider: 09:15 Provider Provider: KONSTANTIN HILLMAN, [facility] Chief Complaint Chief Complaint: UTI; ACUTE RESP FAILURE; SUPNATHERAPUTIC INR Subjective Subjective: Continuing to require 4L of Oxygen with sat maintaining 90-91%. Tachycardic at times. Patient more lethargic today but oriented. States she doesn't feel any better today. Has continued productive cough with green-brown sputum Objective Appearance: Positive Ill-Appearing Chest/Lungs: Positive Symmetrical With Equal Breath Sounds and Other (crackles in bilateral lung bases, diminished) Heart: Positive RRR and Pulses Normal GI/: Positive Soft, Nontender and Bowel Sounds Normal Musculoskeletal: Positive Not Examined Neurological: Positive Sensation Intact, Motor intact, Oriented and Other (lethargic) Vital Signs Vital Signs: Vital Signs: Last 24 Hours 02/12/23 13:00 02/12/23 13:39 02/12/23 14:00 Temperature 98.2 F Temperature Source Oral Pulse Rate 91 Respiratory Rate 26 H Blood Pressure 137/62 Blood Pressure Mean 87 Blood Pressure Location Left Arm Blood Pressure Position Supine O2 Sat by Pulse Oximetry 91 L 92 L Oxygen Delivery Method Nasal Cannula Nasal Cannula Oxygen Flow Rate 4 4 Weight Telemetry Type Remote Telemetry Telemetry Monitoring Continues Irregular Telemetry Rate (Approximate) 80-90 BPM Telemetry Heart Rate 82 Telemetry SPO2 94 EKG MD Interval 0.15 EKG QRS Interval 0.08 Telemetry Strip Reading SR with PACs 02/12/23 19:00 02/12/23 20:00 02/12/23 20:00 Temperature Temperature Source Pulse Rate Respiratory Rate 25 H Blood Pressure Blood Pressure Mean Blood Pressure Location Blood Pressure Position O2 Sat by Pulse Oximetry 93 L Oxygen Delivery Method Nasal Cannula Nasal Cannula Oxygen Flow Rate 4 4 Weight Telemetry Type Remote Telemetry Telemetry Monitoring Continues Irregular Telemetry Rate (Approximate) 90-100 BPM Telemetry Heart Rate 100 Telemetry SPO2 91 L EKG MD Interval 0.13 EKG QRS Interval 0.07 Telemetry Strip Reading SR W/ PACS 02/12/23 21:11 02/13/23 00:34 02/13/23 05:18 Temperature 99.8 F 97.9 F Temperature Source Oral Oral Pulse Rate 90 97 Respiratory Rate 31 H 32 H Blood Pressure 122/57 L 159/73 H Blood Pressure Mean 78 101 Blood Pressure Location Left Arm Left Arm Blood Pressure Position Supine Supine O2 Sat by Pulse Oximetry 93 L 92 L Oxygen Delivery Method Nasal Cannula Nasal Cannula Oxygen Flow Rate 4 4 Weight Telemetry Type Bedside Monitor Telemetry Monitoring Continues Irregular Telemetry Rate (Approximate) 90-100 BPM Telemetry Heart Rate 92 Telemetry SPO2 92 L EKG MD Interval 0.11 L EKG QRS Interval 0.07 Telemetry Strip Reading SR W/ FREQ PACS 02/13/23 05:19 02/13/23 06:00 02/13/23 07:00 Temperature Temperature Source Pulse Rate Respiratory Rate Blood Pressure Blood Pressure Mean Blood Pressure Location Blood Pressure Position O2 Sat by Pulse Oximetry 92 L Oxygen Delivery Method Nasal Cannula Oxygen Flow Rate 4 Weight 119 lb 12.8 oz Telemetry Type Bedside Monitor Telemetry Monitoring Continues Irregular Telemetry Rate (Approximate) 80-90 BPM Telemetry Heart Rate 89 Telemetry SPO2 93 EKG MD Interval 0.12 EKG QRS Interval 0.07 Telemetry Strip Reading Sinus Arrhythmia 02/13/23 09:53 Temperature Temperature Source Pulse Rate Respiratory Rate Blood Pressure Blood Pressure Mean Blood Pressure Location Blood Pressure Position O2 Sat by Pulse Oximetry 93 L Oxygen Delivery Method Nasal Cannula Oxygen Flow Rate 4 Weight Telemetry Type Telemetry Monitoring Irregular Telemetry Rate (Approximate) Telemetry Heart Rate Telemetry SPO2 EKG MD Interval EKG QRS Interval Telemetry Strip Reading Lab Results Lab Results: Lab Results: Last 24 Hours 02/13/23 02/13/23 02/13/23 06:00 05:30 05:00 WBC 9.14 RBC 4.77 Hgb 14.1 Hct 43.9 MCV 92.0 MCH 29.6 MCHC 32.1 RDW Coeff of Nataliya 15.1 H Plt Count 185 Immature Gran % (Auto) 0.5 Neut % (Auto) 89.8 H Lymph % (Auto) 4.2 L Tucker % (Auto) 5.4 Eos % (Auto) 0.0 Baso % (Auto) 0.1 Neut # (Auto) 8.2 H Lymph # (Auto) 0.4 L Tucker # (Auto) 0.5 Eos # (Auto) 0.0 Baso # (Auto) 0.0 Immature Gran # (Auto) 0.1 PT 20.5 H D INR 2.02 D Puncture Site Rbrach Base Excess 11.0 H O2 Saturation 96.8 ABG pH 7.57 H* ABG pCO2 36.0 ABG pO2 75.0 L ABG HCO3 33.0 H ABG Total CO2 34.1 H Micheal Test Pos Hemoglobin 0.9 Oxyhemoglobin 94.1 L Carboxyhemoglobin 2.9 H Total Hemoglobin 15.0 O2 Delivery Device Cannula Oxygen Liter Flow 4.00 Sodium 132.3 L Potassium 3.10 L Chloride 93.7 L Carbon Dioxide 30.3 H Anion Gap 11.40 BUN 28.8 H Creatinine 1.14 Estimated GFR (MDRD) 45.00 BUN/Creatinine Ratio 25.26 Glucose 152.4 H Calcium 9.50 Total Bilirubin 1.14 AST 56.8 H ALT 46.1 H Alkaline Phosphatase 67.7 Total Protein 6.99 Albumin 3.69 Globulin 3.30 Albumin/Globulin Ratio 1.11 Additional Comments Additional Comments: I have independently reviewed and interpreted the labs/EKGs/imaging ordered during this hospital stay. I have reviewed outside records that are available in our EMR that pertain to medical stay including imaging/notes/labs from previous visits. Active Medications Active Medications: Medications Generic Name Dose Route Start Last Admin Trade Name Freq PRN Reason Stop Dose Admin Acetaminophen 650 mg 02/11/23 13:35 02/12/23 19:18 Acetaminophen 325 Mg Tablet PO 650 mg Q4H PRN Administration Mild Pain Hydrocodone Bitart/Acetaminophen 1 tab 02/11/23 15:21 02/13/23 08:54 Hydrocodone Bit/Acetaminophen 5/325 Mg Tablet PO 1 tab TID PRN Administration Pain Albuterol Sulfate 2.5 mg 02/11/23 15:04 02/12/23 03:07 Albuterol Sulfate 0.083% Vial.Neb NEB 2.5 mg RTQ4H PRN Administration Wheezing Albuterol/Ipratropium 3 ml 02/11/23 18:00 02/13/23 09:51 Ipratropium/Albuterol Vial.Neb NEB 3 ml RTQ4H CHUY Administration Alprazolam 0.5 mg 02/11/23 15:21 02/13/23 08:54 Alprazolam 0.5 Mg Tablet PO 0.5 mg TID PRN Administration Anxiety Amlodipine Besylate 2.5 mg 02/11/23 21:00 02/13/23 08:53 Amlodipine Besylate 5 Mg Tablet PO 2.5 mg BID CHUY Administration Atorvastatin Calcium 40 mg 02/11/23 21:00 02/12/23 20:32 Atorvastatin Calcium 20 Mg Tablet PO 40 mg BEDTIME CHUY Administration Calcium/Vitamin D 1 each 02/11/23 21:00 02/13/23 08:53 Calcium Carbonate/Vitamin D3 500 Mg/5 Mcg(200iu) 1 Each Tablet PO 1 each BID CHUY Administration Clotrimazole 1 applic 02/11/23 15:21 Clotrimazole/Betamethasone 45 Gm Cream TP BID PRN Rash Escitalopram Oxalate 10 mg 02/12/23 09:00 02/13/23 08:54 Escitalopram Oxalate 10 Mg Tablet PO 10 mg DAILY CH[facility] Administration Fenofibrate 54 mg 02/12/23 09:00 02/13/23 08:54 Fenofibrate 54 Mg Tablet PO 54 mg DAILY CHUY Administration Furosemide 40 mg 02/12/23 20:45 02/13/23 05:02 Furosemide Inj 40 Mg/4 Ml Vial IVP 40 mg Q8H CHUY Administration Gabapentin 100 mg 02/12/23 09:00 02/13/23 09:37 Gabapentin 100 Mg Capsule PO 100 mg 0900,1200 CHUY Administration Gabapentin 200 mg 02/11/23 21:00 02/12/23 20:32 Gabapentin 100 Mg Capsule PO 200 mg BEDTIME CHUY Administration CEFTRIAXONE/D5W 1 GM PREMIX 1 gm in 50 mls @ 100 mls/hr 02/12/23 09:00 02/13/23 09:37 Rocephin 1 Gm/50 Ml D5w IV 02/15/23 08:59 100 mls/hr DAILY CH[facility]Y Administration Azithromycin 500 mg/ Sodium 250 mls @ 250 mls/hr 02/13/23 10:00 Chloride IV 02/16/23 09:59 DAILY [facility] Levothyroxine Sodium 75 mcg 02/12/23 06:00 02/13/23 05:03 Levothyroxine Sodium 75 Mcg Tablet PO 75 mcg QDAC2 [facility]Y Administration Loratadine 10 mg 02/12/23 09:00 02/13/23 08:53 Loratadine 10 Mg Tablet PO 10 mg DAILY [facility] Administration Non-Formulary Medication 1 drop 02/11/23 21:00 02/13/23 09:38 Azelastine EACHEYE Not Given BID [facility] Nystatin 1 applic 02/11/23 15:21 Nystatin 15 Gm Powder TP QID PRN yeast Ondansetron HCl 4 mg 02/11/23 13:35 Ondansetron Hcl/Pf 4 Mg/2 Ml Sdv IVP Q6H PRN Nausea / Vomiting Ondansetron HCl 4 mg 02/11/23 21:00 Ondansetron Hcl 4 Mg Tablet PO BID PRN NAUSEA/VOMITING Sodium Chloride 1 syr 02/12/23 13:00 02/13/23 05:03 0.9% Sodium Chloride 10 Ml Disp.Syrin IVF 1 syr Q8HR CHUY Administration Plan Plan: 1. Acute Hypoxic Respiratory Failure in the setting of CHF and Covid-19 pneumonia - Unchanged, requiring 4L O2 at this time, wean O2 as tolerated, nebs, lasix 40 mg Q8H IVP, repeat ABG daily, checked CTA and showing pneumonia, added azithromycin 2. Acute CHF Exacerbation - last echo done in 2020 EF 60%, vascular congestion noted on x-ray; echo pending, lasix 40 mg Q8H IVP, daily weight, strict I&O 4. Covid-19 Pneumonia - azithromycin 500 mg QD IVP, steroids, nebs 5. UTI - urine culture growth of klebsiella pneumoniae, continue rocephin 1G Q24H 6. Respiratory Alkalosis in setting of above - titrating oxygen, serial abgs 7. Hypokalemia - Improving, further replacement ordered, repeat cmp in am, telemetry 8. Supratherapeutic INR -Resolved, resume warfarin tonight, repeat INR daily 9. Covid-19 - 10 day isolation complete on 02/12, wean oxygen, nebs 10. Hypertension - chronic, continue home medications 11. Hyperlipidemia - chronic, continue home medications 12. Hypothyroidism - chronic, continue home medications DVT Prophylaxis: YUKI salgado Review Statement Review Statement: I have personally discussed and reviewed the patient's visit/currently labs/imaging/decision making with Dr. Sagastume, my supervising attending. Greater that 50 minutes spent with patient, 50% of the time spent with this patient was devoted to counseling and coordination of care.
[2023-02-13] MEDS: ZITHROMAX 500 MG in SODIUM CHLORIDE 250 ML IV SCH (10:23)
[2023-02-13] MEDS ORDERED: DIAMOX PO ONE (10:54)
[2023-02-13] MEDS ORDERED: PULMICORT 1 MG/2 ML NEB SCH (12:00)
[2023-02-13] MEDS ORDERED: COUMADIN ONE ×2 (17:19)
[2023-02-13] MEDS: WARFARIN PO SCH ×2 (17:34)
[2023-02-13] MEDS ORDERED: MAXIPIME 1 GM VIAL ONE (20:46)
[2023-02-13] MEDS: LIPITOR PO SCH (20:52)
[2023-02-13] MEDS ORDERED: MAXIPIME 1 GM VIAL 1 GM in SODIUM CHLORIDE 50 ML IV SCH (21:00)
[2023-02-13] MEDS: PULMICORT 1 MG/2 ML NEB SCH (21:28)
[2023-02-14] MEDS: DUONEB NEB SCH ×6 (01:33→21:53)
[2023-02-14 05:05] LABS: BASOPHILS % (AUTO) 0.1 % (0.0-3.0); HEMATOCRIT 41.2 % (37.0-47.0); HEMOGLOBIN 13.4 g/dl (12.0-16.0); IMMATURE GRANULOCYTE # (AUTO) 0.1 (0.0-1.0); IMMATURE GRANULOCYTE % (AUTO) 0.8 % (0.0-5.0); LYMPHOCYTES # (AUTO) 0.4 K/uL (0.60-3.4); LYMPHOCYTES % (AUTO) 5.5 (10.0-50.0); MEAN CORPUSCULAR HEMOGLOBIN 29.5 pg (27.0-31.0); MEAN CORPUSCULAR HGB CONC 32.5 (31.8-35.4); MEAN CORPUSCULAR VOLUME 90.7 fl (81.0-99.0); MONOCYTES # (AUTO) 0.5 K/uL (0.4-2.0); MONOCYTES % (AUTO) 6.8 (0-10); NEUTROPHILS # (AUTO) 6.8 K/ul (2.0-6.9); NEUTROPHILS % (AUTO) 86.8 % (42.2-75.2); PLATELET COUNT 157 10^3/uL (140-440); RDW COEFFICIENT OF VARIATION 14.7 % (11.6-14.8); RED BLOOD COUNT 4.54 10^6/ul (4.20-5.40); WHITE BLOOD COUNT 7.85 K/ul (4.6-10.2)
[2023-02-14] MEDS: PULMICORT 1 MG/2 ML NEB SCH (05:10)
[2023-02-14 05:21] LABS: ALANINE AMINOTRANSFERASE 43.4 U/L (0-35); ALBUMIN 3.58 g/dL (3.5-5.0); ALKALINE PHOSPHATASE 63.1 U/L (53-141); ASPARTATE AMINO TRANSFERASE 58.3 U/L (14-36); BILIRUBIN,TOTAL 1.1 mg/dL (0.2-1.3); BLOOD UREA NITROGEN 24.9 mg/dL (7-17); CALCIUM 9.45 mg/dL (8.4-10.2); CARBON DIOXIDE 30.7 mmol/L (22-30.0); CHLORIDE 89.8 mmol/L (98-107); CREATININE 1.24 mg/dL (0.60-1.30); GLUCOSE 90.2 mg/dL (74-106); SODIUM 129.1 mmol/L (134.5-145); TOTAL PROTEIN 6.75 g/dL (6.3-8.2)
[2023-02-14 05:22] LABS: PROTHROMBIN TIME 18.9 SEC (9.3-11.0)
[2023-02-14 05:26] LABS: POTASSIUM 2.74 mmol/L (3.5-5.1)
[2023-02-14] MEDS: SYNTHROID PO SCH (05:46)
[2023-02-14] MEDS: LASIX IVP SCH ×2 (06:02→17:13)
[2023-02-14] MEDS ORDERED: K-DUR PO ONE (06:34)
[2023-02-14] MEDS ORDERED: POTASSIUM CHLORIDE 20 MEQ/100 ML PREMIX 40 MEQ/200 ML BAG IV ONE (06:34)
[2023-02-14] MEDS ORDERED: SODIUM CHLORIDE 3% 500 ML IV SCH (07:30)
[2023-02-14] MEDS: NEURONTIN PO SCH ×3 (08:55→21:18)
[2023-02-14] MEDS: NORVASC PO SCH ×2 (08:55→21:19)
[2023-02-14] MEDS: CALCIUM 500 + VIT D 5 MCG (200 IU) TABLET PO SCH ×2 (08:55→21:17)
[2023-02-14] MEDS: LEXAPRO PO SCH (08:55)
[2023-02-14] MEDS: TRIGLIDE PO SCH (08:55)
[2023-02-14] MEDS: CLARITIN PO SCH (08:56)
[2023-02-14] MEDS ORDERED: DIAMOX PO ONE (09:00)
[2023-02-14] MEDS ORDERED: SODIUM CHLORIDE PO SCH (09:00)
--- NOTE | 2023-02-14 09:40 | PCM.PROG ---
Date/Time Seen Date Seen by Provider: 02/14/23 Time Seen by Provider: 08:50 Provider Provider: KONSTANTIN HILLMAN, [facility] Chief Complaint Chief Complaint: UTI; ACUTE RESP FAILURE; SUPNATHERAPUTIC INR Subjective Subjective: No events overnight. States she still feels bad. Requiring 4-5L O2 Vital Signs Vital Signs: Vital Signs: Last 24 Hours 02/13/23 09:53 02/13/23 13:00 02/13/23 13:35 Temperature Temperature Source Pulse Rate Respiratory Rate Blood Pressure Blood Pressure Mean Blood Pressure Location Blood Pressure Position O2 Sat by Pulse Oximetry 93 L 93 L Oxygen Delivery Method Nasal Cannula Nasal Cannula Oxygen Flow Rate 4 4 Weight Telemetry Type Bedside Monitor Telemetry Monitoring Continues Telemetry Heart Rate 91 Telemetry SPO2 91 L EKG [place] Interval 0.10 L EKG QRS Interval 0.07 Telemetry Strip Reading SR w/ PACs 02/13/23 14:00 02/13/23 19:00 02/13/23 20:00 Temperature Temperature Source Pulse Rate 137 H Respiratory Rate 24 H Blood Pressure 132/64 Blood Pressure Mean 86 Blood Pressure Location Left Arm Blood Pressure Position Sitting O2 Sat by Pulse Oximetry 91 L 91 L Oxygen Delivery Method Nasal Cannula Nasal Cannula Oxygen Flow Rate 5 Weight Telemetry Type Bedside Monitor Telemetry Monitoring Continues Telemetry Heart Rate 89 Telemetry SPO2 93 EKG NH Interval 0.13 EKG QRS Interval 0.07 Telemetry Strip Reading SR 02/13/23 20:00 02/14/23 01:00 02/14/23 05:21 Temperature Temperature Source Pulse Rate Respiratory Rate 27 H Blood Pressure Blood Pressure Mean Blood Pressure Location Blood Pressure Position O2 Sat by Pulse Oximetry Oxygen Delivery Method Nasal Cannula Nasal Cannula Oxygen Flow Rate 5 4 Weight Telemetry Type Bedside Monitor Telemetry Monitoring Continues Telemetry Heart Rate 79 Telemetry SPO2 93 EKG NH Interval 0.15 EKG QRS Interval 0.06 Telemetry Strip Reading SR w/PAC's 02/14/23 06:00 02/14/23 06:00 02/14/23 07:00 Temperature 96.9 F L Temperature Source Temporal Artery Scan Pulse Rate 80 Respiratory Rate 22 H Blood Pressure 120/63 Blood Pressure Mean 82 Blood Pressure Location Right Arm Blood Pressure Position Supine O2 Sat by Pulse Oximetry 92 L Oxygen Delivery Method Nasal Cannula Oxygen Flow Rate 4 Weight 125 lb 9 oz Telemetry Type Remote Telemetry Telemetry Monitoring Continues Telemetry Heart Rate 77 Telemetry SPO2 92 L EKG NH Interval 0.12 EKG QRS Interval 0.06 Telemetry Strip Reading SR 02/14/23 08:00 Temperature Temperature Source Pulse Rate Respiratory Rate Blood Pressure Blood Pressure Mean Blood Pressure Location Blood Pressure Position O2 Sat by Pulse Oximetry Oxygen Delivery Method Nasal Cannula Oxygen Flow Rate 5 Weight Telemetry Type Telemetry Monitoring Telemetry Heart Rate Telemetry SPO2 EKG NH Interval EKG QRS Interval Telemetry Strip Reading Lab Results Lab Results: Lab Results: Last 24 Hours 02/14/23 04:50 WBC 7.85 RBC 4.54 Hgb 13.4 Hct 41.2 MCV 90.7 MCH 29.5 MCHC 32.5 RDW Coeff of Nataliya 14.7 Plt Count 157 Immature Gran % (Auto) 0.8 Neut % (Auto) 86.8 H Lymph % (Auto) 5.5 L [place] % (Auto) 6.8 Eos % (Auto) 0.0 Baso % (Auto) 0.1 Neut # (Auto) 6.8 Lymph # (Auto) 0.4 L [place] # (Auto) 0.5 Eos # (Auto) 0.0 Baso # (Auto) 0.0 Immature Gran # (Auto) 0.1 PT 18.9 H INR 1.86 Sodium 129.1 L Potassium 2.74 L* Chloride 89.8 L Carbon Dioxide 30.7 H Anion Gap 11.34 BUN 24.9 H Creatinine 1.24 Estimated GFR (MDRD) 41.00 BUN/Creatinine Ratio 20.08 Glucose 90.2 D Calcium 9.45 Total Bilirubin 1.10 AST 58.3 H ALT 43.4 H Alkaline Phosphatase 63.1 Total Protein 6.75 Albumin 3.58 Globulin 3.17 Albumin/Globulin Ratio 1.12 Additional Comments Additional Comments: I have independently reviewed and interpreted the labs/EKGs/imaging ordered during this hospital stay. I have reviewed outside records that are available in our EMR that pertain to medical stay including imaging/notes/labs from previous visits. Active Medications Active Medications: Medications Generic Name Dose Route Start Last Admin Trade Name Freq PRN Reason Stop Dose Admin Acetaminophen 650 mg 02/11/23 13:35 02/12/23 19:18 Acetaminophen 325 Mg Tablet PO 650 mg Q4H PRN Administration Mild Pain Hydrocodone Bitart/Acetaminophen 1 tab 02/11/23 15:21 02/13/23 21:49 Hydrocodone Bit/Acetaminophen 5/325 Mg Tablet PO 1 tab TID PRN Administration Pain Albuterol Sulfate 2.5 mg 02/11/23 15:04 02/12/23 03:07 Albuterol Sulfate 0.083% Vial.Neb NEB 2.5 mg RTQ4H PRN Administration Wheezing Albuterol/Ipratropium 3 ml 02/11/23 18:00 02/14/23 04:55 Ipratropium/Albuterol Vial.Neb NEB 3 ml RTQ4H CHUY Administration Alprazolam 0.5 mg 02/11/23 15:21 02/13/23 21:49 Alprazolam 0.5 Mg Tablet PO 0.5 mg TID PRN Administration Anxiety Amlodipine Besylate 2.5 mg 02/11/23 21:00 02/14/23 08:55 Amlodipine Besylate 5 Mg Tablet PO 2.5 mg BID CHUY Administration Atorvastatin Calcium 40 mg 02/11/23 21:00 02/13/23 20:52 Atorvastatin Calcium 20 Mg Tablet PO 40 mg BEDTIME CHUY Administration Budesonide 0.5 mg 02/14/23 18:00 Budesonide 0.5 Mg/2 Ml Vial.Neb NEB RTBID CHUY Calcium/Vitamin D 1 each 02/11/23 21:00 02/14/23 08:55 Calcium Carbonate/Vitamin D3 500 Mg/5 Mcg(200iu) 1 Each Tablet PO 1 each BID CHUY Administration Clotrimazole 1 applic 02/11/23 15:21 Clotrimazole/Betamethasone 45 Gm Cream TP BID PRN Rash Escitalopram Oxalate 10 mg 02/12/23 09:00 02/14/23 08:55 Escitalopram Oxalate 10 Mg Tablet PO 10 mg DAILY CHUY Administration Fenofibrate 54 mg 02/12/23 09:00 02/14/23 08:55 Fenofibrate 54 Mg Tablet PO 54 mg DAILY CHUY Administration Furosemide 40 mg 02/13/23 17:00 02/14/23 06:02 Furosemide Inj 40 Mg/4 Ml Vial IVP 40 mg BIDAC2 CHUY Administration Gabapentin 100 mg 02/12/23 09:00 02/14/23 08:55 Gabapentin 100 Mg Capsule PO 100 mg 0900,1200 CHUY Administration Gabapentin 200 mg 02/11/23 21:00 02/13/23 20:53 Gabapentin 100 Mg Capsule PO 200 mg BEDTIME CHUY Administration Azithromycin 500 mg/ Sodium 250 mls @ 250 mls/hr 02/13/23 10:00 02/13/23 10:23 Chloride IV 02/16/23 09:59 250 mls/hr DAILY CHUY Administration Potassium Chloride 40 meq in 200 mls @ 50 mls/hr 02/14/23 06:34 02/14/23 07:23 Potassium Chloride 20 Meq/100 Ml Premix IV 02/14/23 10:33 50 mls/hr ONCE ONE Administration Sodium Chloride 500 mls @ 30 mls/hr 02/14/23 07:30 Sodium Chloride 3% IV .[id number] CHUY CEFEPIME 2 GM/D5W 2 gm in 50 mls @ 100 mls/hr 02/14/23 09:00 Maxipime 2 Gm/50 Ml D5w IV 02/17/23 08:59 DAILY [facility] Levothyroxine Sodium 75 mcg 02/12/23 06:00 02/14/23 05:46 Levothyroxine Sodium 75 Mcg Tablet PO 75 mcg QDAC2 [facility] Administration Loratadine 10 mg 02/12/23 09:00 02/14/23 08:56 Loratadine 10 Mg Tablet PO 10 mg DAILY [facility] Administration Non-Formulary Medication 1 drop 02/11/23 21:00 02/13/23 21:02 Azelastine EACHEYE Not Given BID [facility] Nystatin 1 applic 02/11/23 15:21 Nystatin 15 Gm Powder TP QID PRN yeast Ondansetron HCl 4 mg 02/11/23 13:35 Ondansetron Hcl/Pf 4 Mg/2 Ml Sdv IVP Q6H PRN Nausea / Vomiting Ondansetron HCl 4 mg 02/11/23 21:00 Ondansetron Hcl 4 Mg Tablet PO BID PRN NAUSEA/VOMITING Sodium Chloride 1 syr 02/12/23 13:00 02/14/23 06:02 0.9% Sodium Chloride 10 Ml Disp.Syrin IVF 1 syr Q8HR CHUY Administration Sodium Chloride 1 gm 02/14/23 09:00 02/14/23 08:55 Sodium Chloride 1 Gm Tablet PO 1 gm TID CHUY Administration Warfarin Sodium 1 mg/ Warfarin 3.5 mg 02/13/23 17:00 02/13/23 17:34 Sodium 2.5 mg PO 3.5 mg DAILY@1700 [facility] Administration Plan Plan: 1. Acute Hypoxic Respiratory Failure in the setting of CHF and Covid-19 pneumonia - Unchanged, 4-5L O2 at this time, wean O2 as tolerated, nebs, lasix 40 mg Q8H IVP, CTA showing pneumonia, added azithromycin and cefepime 2. Acute CHF Exacerbation - Improving, last echo done in 2020 EF 60%, vascular congestion noted on x-ray; echo pending, lasix 40 mg BID IVP, daily weight, strict I&O 4. Covid-19 Pneumonia - azithromycin and cefepime, steroids, nebs 5. UTI - urine culture growth of klebsiella pneumoniae, continue rocephin 1G Q24H 6. Respiratory Alkalosis in setting of above - Improving, no longer tachypneic, diamox x 2 doses 7. Hypokalemia - Improving, further replacement ordered, repeat cmp in am, telemetry 8. Hyponatremia - NS 3%@30mL/hr, repeat bmp at 1400 9. Supratherapeutic INR -Resolved, resume warfarin tonight, repeat INR daily 10. Covid-19 - 10 day isolation complete on 02/12, wean oxygen, nebs 11. Hypertension - chronic, continue home medications 12. Hyperlipidemia - chronic, continue home medications 13. Hypothyroidism - chronic, continue home medications DVT Prophylaxis: YUKI salgado Review Statement Review Statement: I have personally discussed and reviewed the patient's visit/currently labs/imaging/decision making with Dr. Sagastume, my supervising attending. Greater that 50 minutes spent with patient, 50% of the time spent with this patient was devoted to counseling and coordination of care.
[2023-02-14] MEDS: NON-FORMULARY MEDICATION (Azelastine 0.05 % drops) EACHEYE SCH ×2 (12:16→21:26)
[2023-02-14] MEDS: MAXIPIME 2 GM/50 ML D5W 2 GM/50 ML BAG IV SCH (12:45)
[2023-02-14] MEDS: ZITHROMAX 500 MG in SODIUM CHLORIDE 250 ML IV SCH (13:37)
[2023-02-14 14:28] LABS: BLOOD UREA NITROGEN 24.6 mg/dL (7-17); CALCIUM 8.95 mg/dL (8.4-10.2); CARBON DIOXIDE 26.8 mmol/L (22-30.0); CHLORIDE 97.5 mmol/L (98-107); CREATININE 1.12 mg/dL (0.60-1.30); GLUCOSE 197.2 mg/dL (74-106); POTASSIUM 4.04 mmol/L (3.5-5.1); SODIUM 131.3 mmol/L (134.5-145)
[2023-02-14] MEDS ORDERED: COUMADIN ONE ×2 (16:45→16:46)
[2023-02-14] MEDS: SODIUM CHLORIDE PO SCH ×2 (16:49→21:20)
[2023-02-14] MEDS: WARFARIN PO SCH ×2 (16:50)
[2023-02-14] MEDS: PULMICORT 0.5 MG/2 ML NEB SCH (17:19)
[2023-02-14] MEDS: NORCO 5-325 PO PRN (21:18)
[2023-02-14] MEDS: XANAX PO PRN (21:18)
[2023-02-14] MEDS: LIPITOR PO SCH (21:20)
[2023-02-15] MEDS: DUONEB NEB SCH ×6 (01:40→21:38)
[2023-02-15 05:36] LABS: BASOPHILS % (AUTO) 0.2 % (0.0-3.0); EOSINOPHILS # (AUTO) 0.1 K/ul (0.0-0.7); EOSINOPHILS % (AUTO) 1.1 % (0.0-7.0); IMMATURE GRANULOCYTE # (AUTO) 0.1 (0.0-1.0); IMMATURE GRANULOCYTE % (AUTO) 0.9 % (0.0-5.0); LYMPHOCYTES # (AUTO) 0.4 K/uL (0.60-3.4); MEAN CORPUSCULAR HEMOGLOBIN 29.3 pg (27.0-31.0); MEAN CORPUSCULAR HGB CONC 31.6 (31.8-35.4); MEAN CORPUSCULAR VOLUME 92.7 fl (81.0-99.0); MONOCYTES # (AUTO) 0.4 K/uL (0.4-2.0); MONOCYTES % (AUTO) 7.5 (0-10); NEUTROPHILS # (AUTO) 4.4 K/ul (2.0-6.9); NEUTROPHILS % (AUTO) 83.3 % (42.2-75.2); PLATELET COUNT 145 10^3/uL (140-440); RDW COEFFICIENT OF VARIATION 14.7 % (11.6-14.8); WHITE BLOOD COUNT 5.31 K/ul (4.6-10.2)
[2023-02-15] MEDS: PULMICORT 0.5 MG/2 ML NEB SCH ×2 (05:48→18:12)
[2023-02-15 06:02] LABS: ALANINE AMINOTRANSFERASE 40.4 U/L (0-35); ALBUMIN 3.08 g/dL (3.5-5.0); ALKALINE PHOSPHATASE 55.7 U/L (53-141); ASPARTATE AMINO TRANSFERASE 54.7 U/L (14-36); BILIRUBIN,TOTAL 0.83 mg/dL (0.2-1.3); BLOOD UREA NITROGEN 23.2 mg/dL (7-17); CALCIUM 8.81 mg/dL (8.4-10.2); CARBON DIOXIDE 27.3 mmol/L (22-30.0); CHLORIDE 98.7 mmol/L (98-107); GLUCOSE 91.3 mg/dL (74-106); POTASSIUM 2.92 mmol/L (3.5-5.1); TOTAL PROTEIN 6.02 g/dL (6.3-8.2)
[2023-02-15] MEDS: LASIX IVP SCH (06:25)
[2023-02-15] MEDS: SYNTHROID PO SCH (06:25)
[2023-02-15] MEDS ORDERED: POTASSIUM CHLORIDE 20 MEQ/100 ML PREMIX 40 MEQ/200 ML BAG IV ONE (08:08)
[2023-02-15] MEDS ORDERED: K-DUR PO ONE (08:08)
[2023-02-15] MEDS ORDERED: LASIX TAB PO ONE (08:09)
[2023-02-15] MEDS: MAXIPIME 2 GM/50 ML D5W 2 GM/50 ML BAG IV SCH ×2 (08:49→21:05)
[2023-02-15] MEDS: CLARITIN PO SCH (08:56)
[2023-02-15] MEDS: TRIGLIDE PO SCH (08:56)
[2023-02-15] MEDS: NORVASC PO SCH ×2 (08:56→21:06)
[2023-02-15] MEDS: SODIUM CHLORIDE PO SCH ×4 (08:56→21:05)
[2023-02-15] MEDS: CALCIUM 500 + VIT D 5 MCG (200 IU) TABLET PO SCH ×2 (08:56→21:48)
[2023-02-15] MEDS: NEURONTIN PO SCH ×3 (08:57→21:07)
[2023-02-15] MEDS: LEXAPRO PO SCH (08:57)
--- NOTE | 2023-02-15 09:34 | PCM.PROG ---
Date/Time Seen Date Seen by Provider: 02/15/23 Time Seen by Provider: 09:00 Provider Provider: KONSTANTIN HILLMAN, [facility] Chief Complaint Chief Complaint: UTI; ACUTE RESP FAILURE; SUPNATHERAPUTIC INR Subjective Subjective: No events overnight. Patient reports that she feels that she is breathing better. Maintaining sat of 95%. On 4L Objective Appearance: Positive No Apparent Distress, Alert and Oriented x3 and Ill- Appearing Chest/Lungs: Positive Symmetrical With Equal Breath Sounds, Good Air Movement all 4 Lung [place] and Other (coarse in RLL) Heart: Positive RRR and Pulses Normal GI/: Positive Soft, Nontender, Bowel Sounds Normal and No Distention Neurological: Positive Sensation Intact, Motor intact, Reflexes Intact, Alert and Oriented Vital Signs Vital Signs: Vital Signs: Last 24 Hours 02/14/23 10:00 02/14/23 13:00 02/14/23 13:37 Temperature Temperature Source Pulse Rate Respiratory Rate Blood Pressure Blood Pressure Mean Blood Pressure Location Blood Pressure Position O2 Sat by Pulse Oximetry 91 L Oxygen Delivery Method Nasal Cannula Nasal Cannula Oxygen Flow Rate 4 4 Weight Telemetry Type Bedside Monitor Telemetry Monitoring Continues Telemetry Heart Rate 76 Telemetry SPO2 93 EKG ND Interval 0.11 L EKG QRS Interval 0.05 L Telemetry Strip Reading SR 02/14/23 14:00 02/14/23 19:00 02/14/23 19:34 Temperature 97.9 F Temperature Source Tympanic Pulse Rate 84 Respiratory Rate 28 H Blood Pressure 99/51 L Blood Pressure Mean 67 Blood Pressure Location Right Arm Blood Pressure Position Sitting O2 Sat by Pulse Oximetry 93 L 94 L Oxygen Delivery Method Room Air Nasal Cannula Oxygen Flow Rate 5 4 Weight Telemetry Type Bedside Monitor Telemetry Monitoring Continues Telemetry Heart Rate 79 Telemetry SPO2 95 EKG ND Interval 0.14 EKG QRS Interval 0.06 Telemetry Strip Reading NSR 02/14/23 20:00 02/14/23 21:16 02/15/23 01:00 Temperature 98.0 F Temperature Source Oral Pulse Rate 72 Respiratory Rate 23 H Blood Pressure 109/59 L Blood Pressure Mean 75 Blood Pressure Location Right Arm Blood Pressure Position Supine O2 Sat by Pulse Oximetry 96 Oxygen Delivery Method Nasal Cannula Nasal Cannula Oxygen Flow Rate 4 5 Weight Telemetry Type Bedside Monitor Telemetry Monitoring Continues Telemetry Heart Rate 68 Telemetry SPO2 96 EKG ND Interval 0.13 EKG QRS Interval 0.06 Telemetry Strip Reading NSR 02/15/23 03:07 02/15/23 05:42 02/15/23 05:44 Temperature 97.6 F 97.6 F Temperature Source Temporal Artery Scan Oral Pulse Rate 63 61 Respiratory Rate 16 15 Blood Pressure 118/63 117/61 Blood Pressure Mean 81 79 Blood Pressure Location Right Arm Right Arm Blood Pressure Position Supine Supine O2 Sat by Pulse Oximetry 95 97 Oxygen Delivery Method Nasal Cannula Nasal Cannula Oxygen Flow Rate 4 5 Weight 125 lb 8 oz Telemetry Type Telemetry Monitoring Telemetry Heart Rate Telemetry SPO2 EKG ND Interval EKG QRS Interval Telemetry Strip Reading 02/15/23 05:51 02/15/23 07:00 02/15/23 08:00 Temperature Temperature Source Pulse Rate Respiratory Rate 19 Blood Pressure Blood Pressure Mean Blood Pressure Location Blood Pressure Position O2 Sat by Pulse Oximetry 94 L Oxygen Delivery Method Nasal Cannula Nasal Cannula Oxygen Flow Rate 4 4 Weight Telemetry Type Bedside Monitor Telemetry Monitoring Continues Telemetry Heart Rate 61 Telemetry SPO2 94 EKG ND Interval 0.14 EKG QRS Interval 0.08 Telemetry Strip Reading SR Lab Results Lab Results: Lab Results: Last 24 Hours 02/15/23 02/14/23 05:10 14:10 WBC 5.31 RBC 4.10 L Hgb 12.0 Hct 38.0 MCV 92.7 MCH 29.3 MCHC 31.6 L RDW Coeff of Nataliya 14.7 Plt Count 145 Immature Gran % (Auto) 0.9 Neut % (Auto) 83.3 H Lymph % (Auto) 7.0 L [place] % (Auto) 7.5 Eos % (Auto) 1.1 Baso % (Auto) 0.2 Neut # (Auto) 4.4 Lymph # (Auto) 0.4 L [place] # (Auto) 0.4 Eos # (Auto) 0.1 Baso # (Auto) 0.0 Immature Gran # (Auto) 0.1 Sodium 132.0 L 131.3 L Potassium 2.92 L 4.04 Chloride 98.7 97.5 L Carbon Dioxide 27.3 26.8 Anion Gap 8.92 11.04 BUN 23.2 H 24.6 H Creatinine 1.00 1.12 Estimated GFR (MDRD) 52.00 46.00 BUN/Creatinine Ratio 23.20 21.96 Glucose 91.3 D 197.2 H D Calcium 8.81 8.95 Total Bilirubin 0.83 AST 54.7 H ALT 40.4 H Alkaline Phosphatase 55.7 Total Protein 6.02 L Albumin 3.08 L Globulin 2.94 Albumin/Globulin Ratio 1.04 Additional Comments Additional Comments: I have independently reviewed and interpreted the labs/EKGs/imaging ordered during this hospital stay. I have reviewed outside records that are available in our EMR that pertain to medical stay including imaging/notes/labs from previous visits. Active Medications Active Medications: Medications Generic Name Dose Route Start Last Admin Trade Name Freq PRN Reason Stop Dose Admin Acetaminophen 650 mg 02/11/23 13:35 02/12/23 19:18 Acetaminophen 325 Mg Tablet PO 650 mg Q4H PRN Administration Mild Pain Hydrocodone Bitart/Acetaminophen 1 tab 02/11/23 15:21 02/14/23 21:18 Hydrocodone Bit/Acetaminophen 5/325 Mg Tablet PO 1 tab TID PRN Administration Pain Albuterol Sulfate 2.5 mg 02/11/23 15:04 02/12/23 03:07 Albuterol Sulfate 0.083% Vial.Neb NEB 2.5 mg RTQ4H PRN Administration Wheezing Albuterol/Ipratropium 3 ml 02/11/23 18:00 02/15/23 05:45 Ipratropium/Albuterol Vial.Neb NEB 3 ml RTQ4H CHUY Administration Alprazolam 0.5 mg 02/11/23 15:21 02/14/23 21:18 Alprazolam 0.5 Mg Tablet PO 0.5 mg TID PRN Administration Anxiety Amlodipine Besylate 2.5 mg 02/11/23 21:00 02/15/23 08:56 Amlodipine Besylate 5 Mg Tablet PO 2.5 mg BID CHUY Administration Atorvastatin Calcium 40 mg 02/11/23 21:00 02/14/23 21:20 Atorvastatin Calcium 20 Mg Tablet PO 40 mg BEDTIME CHUY Administration Budesonide 0.5 mg 02/14/23 18:00 02/15/23 05:48 Budesonide 0.5 Mg/2 Ml Vial.Neb NEB Not Given RTBID CHUY Calcium/Vitamin D 1 each 02/11/23 21:00 02/15/23 08:56 Calcium Carbonate/Vitamin D3 500 Mg/5 Mcg(200iu) 1 Each Tablet PO 1 each BID CHUY Administration Clotrimazole 1 applic 02/11/23 15:21 Clotrimazole/Betamethasone 45 Gm Cream TP BID PRN Rash Escitalopram Oxalate 10 mg 02/12/23 09:00 02/15/23 08:57 Escitalopram Oxalate 10 Mg Tablet PO 10 mg DAILY CHUY Administration Fenofibrate 54 mg 02/12/23 09:00 02/15/23 08:56 Fenofibrate 54 Mg Tablet PO 54 mg DAILY CHUY Administration Gabapentin 100 mg 02/12/23 09:00 02/15/23 08:57 Gabapentin 100 Mg Capsule PO 100 mg 0900,1200 CHUY Administration Gabapentin 200 mg 02/11/23 21:00 02/14/23 21:18 Gabapentin 100 Mg Capsule PO 200 mg BEDTIME CHUY Administration Azithromycin 500 mg/ Sodium 250 mls @ 250 mls/hr 02/13/23 10:00 02/14/23 1 3:37 Chloride IV 02/16/23 09:59 250 mls/hr DAILY CHUY Administration Potassium Chloride 40 meq in 200 mls @ 50 mls/hr 02/15/23 08:08 Potassium Chloride 20 Meq/100 Ml Premix IV 02/15/23 12:07 ONCE ONE CEFEPIME 2 GM/D5W 2 gm in 50 mls @ 100 mls/hr 02/15/23 21:00 Maxipime 2 Gm/50 Ml D5w IV 02/17/23 08:59 Q12HR [facility] Levothyroxine Sodium 75 mcg 02/12/23 06:00 02/15/23 06:25 Levothyroxine Sodium 75 Mcg Tablet PO 75 mcg QDAC2 CHUY Administration Loratadine 10 mg 02/12/23 09:00 02/15/23 08:56 Loratadine 10 Mg Tablet PO 10 mg DAILY [facility] Administration Non-Formulary Medication 1 drop 02/11/23 21:00 02/14/23 21:26 Azelastine EACHEYE Not Given BID CHUY Nystatin 1 applic 02/11/23 15:21 Nystatin 15 Gm Powder TP QID PRN yeast Ondansetron HCl 4 mg 02/11/23 13:35 Ondansetron Hcl/Pf 4 Mg/2 Ml Sdv IVP Q6H PRN Nausea / Vomiting Ondansetron HCl 4 mg 02/11/23 21:00 Ondansetron Hcl 4 Mg Tablet PO BID PRN NAUSEA/VOMITING Sodium Chloride 1 syr 02/12/23 13:00 02/15/23 06:25 0.9% Sodium Chloride 10 Ml Disp.Syrin IVF 1 syr Q8HR CHUY Administration Sodium Chloride 1 gm 02/14/23 17:00 02/15/23 08:56 Sodium Chloride 1 Gm Tablet PO 1 gm QID CHUY Administration Warfarin Sodium 1 mg/ Warfarin 3.5 mg 02/13/23 17:00 02/14/23 16:50 Sodium 2.5 mg PO 3.5 mg DAILY@1700 CHUY Administration Plan Plan: 1. Acute Hypoxic Respiratory Failure in the setting of CHF and Covid-19 pneumonia - Improving, 4 O2 at this time, wean O2 as tolerated, nebs, azithromycin and cefepime 2. Acute CHF Exacerbation - Resolved, last echo done in 2020 EF 60%, vascular congestion noted on x-ray; echo completed, daily weight, strict I&O, decreased lasix to 40 mg PO today, has diuresed 4-5L since admission 3. Covid-19 Pneumonia - azithromycin and cefepime, nebs 4. UTI - urine culture growth of klebsiella pneumoniae, continue rocephin 1G Q24H 5. Respiratory Alkalosis in setting of above - Resolved, no longer tachypneic, diamox x 2 doses 6. Hypokalemia - Improving, further replacement ordered, repeat cmp in am, telemetry 7. Hyponatremia - Improving, stopped 3% NS yesterday, continue salt tabs QID 8. Supratherapeutic INR - Resolved, warfarin 3.5 in evening repeat INR daily 9. Covid-19 - 10 day isolation complete on 02/12, wean oxygen, nebs 10. Hypertension - chronic, continue home medications 11. Hyperlipidemia - chronic, continue home medications 12. Hypothyroidism - chronic, continue home medications DVT Prophylaxis: YUKI salgado Review Statement Review Statement: I have personally discussed and reviewed the patient's visit/currently labs/imaging/decision making with Dr. Sagastume, my supervising attending. Greater that 50 minutes spent with patient, 50% of the time spent with this patient was devoted to counseling and coordination of care.
[2023-02-15] MEDS: NON-FORMULARY MEDICATION (Azelastine 0.05 % drops) EACHEYE SCH ×2 (10:09→20:52)
[2023-02-15] MEDS: XANAX PO PRN ×2 (10:46→21:06)
[2023-02-15] MEDS: NORCO 5-325 PO PRN ×2 (10:46→21:06)
[2023-02-15] MEDS: ZITHROMAX 500 MG in SODIUM CHLORIDE 250 ML IV SCH (13:36)
[2023-02-15] MEDS ORDERED: COUMADIN ONE ×2 (17:24→17:25)
[2023-02-15] MEDS: WARFARIN PO SCH ×2 (17:26)
[2023-02-15] MEDS: LIPITOR PO SCH (21:07)
[2023-02-16] MEDS: DUONEB NEB SCH ×6 (02:51→21:05)
[2023-02-16] MEDS: PULMICORT 0.5 MG/2 ML NEB SCH ×2 (05:35→17:51)
[2023-02-16] MEDS: LASIX TAB PO SCH (06:04)
[2023-02-16 06:10] LABS: BASOPHILS % (AUTO) 0.2 % (0.0-3.0); EOSINOPHILS # (AUTO) 0.1 K/ul (0.0-0.7); EOSINOPHILS % (AUTO) 2.1 % (0.0-7.0); HEMATOCRIT 38.5 % (37.0-47.0); HEMOGLOBIN 12.2 g/dl (12.0-16.0); IMMATURE GRANULOCYTE # (AUTO) 0.1 (0.0-1.0); IMMATURE GRANULOCYTE % (AUTO) 1.2 % (0.0-5.0); LYMPHOCYTES # (AUTO) 0.6 K/uL (0.60-3.4); LYMPHOCYTES % (AUTO) 11.7 (10.0-50.0); MEAN CORPUSCULAR HEMOGLOBIN 29.4 pg (27.0-31.0); MEAN CORPUSCULAR HGB CONC 31.7 (31.8-35.4); MEAN CORPUSCULAR VOLUME 92.8 fl (81.0-99.0); MONOCYTES # (AUTO) 0.3 K/uL (0.4-2.0); MONOCYTES % (AUTO) 6.5 (0-10); NEUTROPHILS # (AUTO) 4.1 K/ul (2.0-6.9); NEUTROPHILS % (AUTO) 78.3 % (42.2-75.2); PLATELET COUNT 160 10^3/uL (140-440); RDW COEFFICIENT OF VARIATION 14.7 % (11.6-14.8); RED BLOOD COUNT 4.15 10^6/ul (4.20-5.40); WHITE BLOOD COUNT 5.21 K/ul (4.6-10.2)
[2023-02-16] MEDS: SYNTHROID PO SCH (06:12)
[2023-02-16 06:17] LABS: ALANINE AMINOTRANSFERASE 41.1 U/L (0-35); ALBUMIN 3.08 g/dL (3.5-5.0); ALKALINE PHOSPHATASE 63.3 U/L (53-141); ASPARTATE AMINO TRANSFERASE 49.9 U/L (14-36); BILIRUBIN,TOTAL 0.69 mg/dL (0.2-1.3); BLOOD UREA NITROGEN 24.1 mg/dL (7-17); CALCIUM 8.87 mg/dL (8.4-10.2); CARBON DIOXIDE 24.9 mmol/L (22-30.0); CHLORIDE 105.8 mmol/L (98-107); CREATININE 0.87 mg/dL (0.60-1.30); GLUCOSE 98.6 mg/dL (74-106); POTASSIUM 3.73 mmol/L (3.5-5.1); TOTAL PROTEIN 5.87 g/dL (6.3-8.2)
[2023-02-16 06:29] LABS: PROTHROMBIN TIME 44.3 SEC (9.3-11.0)
[2023-02-16] MEDS: MAXIPIME 2 GM/50 ML D5W 2 GM/50 ML BAG IV SCH ×2 (08:56→20:42)
[2023-02-16] MEDS: NORVASC PO SCH ×2 (08:57→20:42)
[2023-02-16] MEDS: CALCIUM 500 + VIT D 5 MCG (200 IU) TABLET PO SCH ×2 (08:57→20:40)
[2023-02-16] MEDS: TRIGLIDE PO SCH (08:57)
[2023-02-16] MEDS: LEXAPRO PO SCH (08:57)
[2023-02-16] MEDS: SODIUM CHLORIDE PO SCH ×4 (08:57→20:42)
[2023-02-16] MEDS: NEURONTIN PO SCH ×3 (08:57→20:41)
[2023-02-16] MEDS: CLARITIN PO SCH (08:57)
[2023-02-16] MEDS: NON-FORMULARY MEDICATION (Azelastine 0.05 % drops) EACHEYE SCH ×2 (08:58→21:02)
--- NOTE | 2023-02-16 09:19 | PCM.PROG ---
Date/Time Seen Date Seen by Provider: 02/16/23 Time Seen by Provider: 08:50 Provider Provider: KONSTANTIN HILLMAN, [facility] Chief Complaint Chief Complaint: UTI; ACUTE RESP FAILURE; SUPNATHERAPUTIC INR Subjective Subjective: No events overnight. Patient states she is breathing much better today. Reports being tired, but no new problems or complaints. Objective Appearance: Positive No Apparent Distress and Alert and Oriented x3 Chest/Lungs: Positive Symmetrical With Equal Breath Sounds, Clear to Auscultation Bilaterally and Good Air Movement all 4 Lung [place] Heart: Positive RRR and Pulses Normal GI/: Positive Soft, Nontender, Bowel Sounds Normal and No Distention Musculoskeletal: Positive Not Examined Neurological: Positive Sensation Intact, Alert and Oriented Vital Signs Vital Signs: Vital Signs: Last 24 Hours 02/15/23 10:21 02/15/23 13:00 02/15/23 14:00 Temperature Temperature Source Pulse Rate Respiratory Rate Blood Pressure Blood Pressure Mean Blood Pressure Location Blood Pressure Position O2 Sat by Pulse Oximetry 92 L 94 L Oxygen Delivery Method Nasal Cannula Nasal Cannula Oxygen Flow Rate 4 4 Weight Telemetry Type Remote Telemetry Telemetry Monitoring Continues Irregular Telemetry Rate (Approximate) Telemetry Heart Rate 72 Telemetry SPO2 92 L EKG [place] Interval 0.12 EKG QRS Interval 0.07 Telemetry Strip Reading SR 02/15/23 14:00 02/15/23 19:00 02/15/23 19:46 Temperature 97.8 F Temperature Source Temporal Artery Scan Pulse Rate 71 Respiratory Rate 16 Blood Pressure 112/53 L Blood Pressure Mean 72 Blood Pressure Location Right Arm Blood Pressure Position Supine O2 Sat by Pulse Oximetry 93 L 93 L Oxygen Delivery Method Nasal Cannula Nasal Cannula Oxygen Flow Rate 4 4 Weight Telemetry Type Bedside Monitor Telemetry Monitoring Continues Irregular Telemetry Rate (Approximate) Telemetry Heart Rate 70 Telemetry SPO2 93 EKG [place] Interval EKG QRS Interval 0.06 Telemetry Strip Reading A FIB 02/15/23 20:00 02/15/23 22:00 02/16/23 01:00 Temperature 98.3 F Temperature Source Temporal Artery Scan Pulse Rate 67 Respiratory Rate 21 H Blood Pressure 112/53 L Blood Pressure Mean 72 Blood Pressure Location Left Arm Blood Pressure Position Supine O2 Sat by Pulse Oximetry 95 Oxygen Delivery Method Nasal Cannula Nasal Cannula Oxygen Flow Rate 4 4 Weight Telemetry Type Bedside Monitor Telemetry Monitoring Continues Irregular Telemetry Rate (Approximate) Telemetry Heart Rate 63 Telemetry SPO2 EKG [place] Interval EKG QRS Interval 0.06 Telemetry Strip Reading a fib 02/16/23 05:14 02/16/23 05:15 02/16/23 05:45 Temperature 98.4 F Temperature Source Oral Pulse Rate 67 Respiratory Rate 19 Blood Pressure 125/58 L Blood Pressure Mean 80 Blood Pressure Location Right Arm Blood Pressure Position O2 Sat by Pulse Oximetry 95 95 Oxygen Delivery Method Nasal Cannula Nasal Cannula Oxygen Flow Rate 4 4 Weight 129 lb 6 oz Telemetry Type Telemetry Monitoring Irregular Telemetry Rate (Approximate) Telemetry Heart Rate Telemetry SPO2 EKG [place] Interval EKG QRS Interval Telemetry Strip Reading 02/16/23 07:00 Temperature Temperature Source Pulse Rate Respiratory Rate Blood Pressure Blood Pressure Mean Blood Pressure Location Blood Pressure Position O2 Sat by Pulse Oximetry Oxygen Delivery Method Oxygen Flow Rate Weight Telemetry Type Remote Telemetry Telemetry Monitoring Continues Irregular Telemetry Rate (Approximate) 60-70 BPM Telemetry Heart Rate Telemetry SPO2 95 EKG [place] Interval EKG QRS Interval 0.08 Telemetry Strip Reading afib Lab Results Lab Results: Lab Results: Last 24 Hours 02/16/23 02/15/23 05:55 10:00 WBC 5.21 RBC 4.15 L Hgb 12.2 Hct 38.5 MCV 92.8 MCH 29.4 MCHC 31.7 L RDW Coeff of Nataliya 14.7 Plt Count 160 Immature Gran % (Auto) 1.2 Neut % (Auto) 78.3 H Lymph % (Auto) 11.7 [place] % (Auto) 6.5 Eos % (Auto) 2.1 Baso % (Auto) 0.2 Neut # (Auto) 4.1 Lymph # (Auto) 0.6 [place] # (Auto) 0.3 L Eos # (Auto) 0.1 Baso # (Auto) 0.0 Immature Gran # (Auto) 0.1 PT 44.3 H D 31.0 H D INR 4.51 H* 3.11 Sodium 135.0 Potassium 3.73 Chloride 105.8 Carbon Dioxide 24.9 Anion Gap 8.03 BUN 24.1 H Creatinine 0.87 Estimated GFR (MDRD) 61.00 BUN/Creatinine Ratio 27.70 Glucose 98.6 Calcium 8.87 Total Bilirubin 0.69 AST 49.9 H ALT 41.1 H Alkaline Phosphatase 63.3 Total Protein 5.87 L Albumin 3.08 L Globulin 2.79 Albumin/Globulin Ratio 1.10 Additional Comments Additional Comments: I have independently reviewed and interpreted the labs/EKGs/imaging ordered during this hospital stay. I have reviewed outside records that are available in our EMR that pertain to medical stay including imaging/notes/labs from previous visits. Active Medications Active Medications: Medications Generic Name Dose Route Start Last Admin Trade Name Freq PRN Reason Stop Dose Admin Acetaminophen 650 mg 02/11/23 13:35 02/12/23 19:18 Acetaminophen 325 Mg Tablet PO 650 mg Q4H PRN Administration Mild Pain Hydrocodone Bitart/Acetaminophen 1 tab 02/11/23 15:21 02/15/23 21:06 Hydrocodone Bit/Acetaminophen 5/325 Mg Tablet PO 1 tab TID PRN Administration Pain Albuterol Sulfate 2.5 mg 02/11/23 15:04 02/12/23 03:07 Albuterol Sulfate 0.083% Vial.Neb NEB 2.5 mg RTQ4H PRN Administration Wheezing Albuterol/Ipratropium 3 ml 02/11/23 18:00 02/16/23 05:25 Ipratropium/Albuterol Vial.Neb NEB 3 ml RTQ4H CHUY Administration Alprazolam 0.5 mg 02/11/23 15:21 02/15/23 21:06 Alprazolam 0.5 Mg Tablet PO 0.5 mg TID PRN Administration Anxiety Amlodipine Besylate 2.5 mg 02/11/23 21:00 02/16/23 08:57 Amlodipine Besylate 5 Mg Tablet PO 2.5 mg BID CHUY Administration Atorvastatin Calcium 40 mg 02/11/23 21:00 02/15/23 21:07 Atorvastatin Calcium 20 Mg Tablet PO 40 mg BEDTIME CHUY Administration Budesonide 0.5 mg 02/14/23 18:00 02/16/23 05:35 Budesonide 0.5 Mg/2 Ml Vial.Neb NEB 0.5 mg RTBID CHUY Administration Calcium/Vitamin D 1 each 02/11/23 21:00 02/16/23 08:57 Calcium Carbonate/Vitamin D3 500 Mg/5 Mcg(200iu) 1 Each Tablet PO 1 each BID CHUY Administration Clotrimazole 1 applic 02/11/23 15:21 Clotrimazole/Betamethasone 45 Gm Cream TP BID PRN Rash Escitalopram Oxalate 10 mg 02/12/23 09:00 02/16/23 08:57 Escitalopram Oxalate 10 Mg Tablet PO 10 mg DAILY CHUY Administration Fenofibrate 54 mg 02/12/23 09:00 02/16/23 08:57 Fenofibrate 54 Mg Tablet PO 54 mg DAILY CHUY Administration Furosemide 20 mg 02/16/23 06:00 02/16/23 06:04 Furosemide 20 Mg Tablet PO 20 mg QDAC2 CHUY Administration Gabapentin 100 mg 02/12/23 09:00 02/16/23 08:57 Gabapentin 100 Mg Capsule PO 100 mg 0900,1200 CHUY Administration Gabapentin 200 mg 02/11/23 21:00 02/15/23 21:07 Gabapentin 100 Mg Capsule PO 200 mg BEDTIME CHUY Administration Azithromycin 500 mg/ Sodium 250 mls @ 250 mls/hr 02/13/23 10:00 02/15/23 13:36 Chloride IV 02/16/23 09:59 250 mls/hr DAILY CHUY Administration CEFEPIME 2 GM/D5W 2 gm in 50 mls @ 100 mls/hr 02/15/23 21:00 02/16/23 08:56 Maxipime 2 Gm/50 Ml D5w IV 02/17/23 08:59 100 mls/hr Q12HR CHUY Administration Levothyroxine Sodium 75 mcg 02/12/23 06:00 02/16/23 06:12 Levothyroxine Sodium 75 Mcg Tablet PO 75 mcg QDAC2 CHUY Administration Loratadine 10 mg 02/12/23 09:00 02/16/23 08:57 Loratadine 10 Mg Tablet PO 10 mg DAILY CHUY Administration Non-Formulary Medication 1 drop 02/11/23 21:00 02/16/23 08:58 Azelastine EACHEYE Not Given BID [facility] Nystatin 1 applic 02/11/23 15:21 Nystatin 15 Gm Powder TP QID PRN yeast Ondansetron HCl 4 mg 02/11/23 13:35 Ondansetron Hcl/Pf 4 Mg/2 Ml Sdv IVP Q6H PRN Nausea / Vomiting Ondansetron HCl 4 mg 02/11/23 21:00 Ondansetron Hcl 4 Mg Tablet PO BID PRN NAUSEA/VOMITING Sodium Chloride 1 syr 02/12/23 13:00 02/16/23 06:05 0.9% Sodium Chloride 10 Ml Disp.Syrin IVF 1 syr Q8HR CHUY Administration Sodium Chloride 1 gm 02/14/23 17:00 02/16/23 08:57 Sodium Chloride 1 Gm Tablet PO 1 gm QID CHUY Administration Warfarin Sodium 1 mg/ Warfarin 3.5 mg 02/17/23 17:00 Sodium 2.5 mg PO EVERY OTHER DAY@1700 [facility] Plan Plan: 1. Acute Hypoxic Respiratory Failure in the setting of CHF and Covid-19 pneumonia - Improving, turned O2 down to 2L this a, sat between 92-94% at this time, nebs, azithromycin and cefepime 2. Acute CHF Exacerbation - Resolved, last echo done in 2020 EF 60%, vascular congestion noted on x-ray; echo completed, daily weight, strict I&O, decreased lasix to 40 mg PO yesterday, has diuresed 4-5L since admission 3. Covid-19 Pneumonia - Improving, see #1, azithromycin and cefepime, nebs 4. UTI - urine culture growth of klebsiella pneumoniae, continue rocephin 1G Q24H 5. Respiratory Alkalosis in setting of above - Resolved, no longer tachypneic, diamox x 2 doses 6. Hypokalemia - Resolved 7. Hyponatremia - Resolved 8. Supratherapeutic INR - Regressed, INR >4 this am, holding warfarin 3.5 in evening, changed ordered to QOD, repeat INR daily 9. Covid-19 - 10 day isolation complete on 02/12, wean oxygen, nebs 10. Hypertension - chronic, continue home medications 11. Hyperlipidemia - chronic, continue home medications 12. Hypothyroidism - chronic, continue home medications DVT: Warfarin - Spoke extensively with Dena, daughter, on the phone following rounds to update on plan of care. Initially planned to d/c patient today, but daughter requesting for hospital bed and wheelchair due to patient being immobile/bed bound. Unable to do this today due to holiday weekend. Will pass along to case management/social work in am and d/c following setup of DME. Review Statement Review Statement: I have personally discussed and reviewed the patient's visit/currently labs/imaging/decision making with Dr. Sagastume, my supervising attending. Greater that 50 minutes spent with patient, 50% of the time spent with this patient was devoted to counseling and coordination of care.
[2023-02-16] MEDS: ZITHROMAX 500 MG in SODIUM CHLORIDE 250 ML IV SCH (09:56)
--- NOTE | 2023-02-16 13:05 | ECHO2D ---
Date of Exam: 02/12/23 Ordering Physician: DR. BIJAN ROWE/HOSPITALIST Room #: SCU1 Reason for Echo: SOB, CAD, RESPIRATORY FAILURE, HYPOKALEMIA M-Mode Normal Adult Results LV Dimensions Normal Adult Results AoV Opening excursions >1.6 >1.6 LVEDD-base- 3.5-5.8 3.8 Ao root dimensions 2.0-3.7 2.7 LVESD-base- 3.1-4.6 L. Atrium dimensions 1.9-3.8 4.2 Post. Wall thickness 0.8-1.1 1.2 IV septum (thickness) 0.7-1.2 1.2 Post. Wall excursion 0.72-1.3 NORMAL Septal motion NORMAL Systolic motion R. Ventricular cavity 1.5-2.0 3.0 LVEF 60% 76% Paradoxical septal wall motion NORMAL 2-D : 2-D M Mode Echocardiogram was performed using apical four chamber and left parasternal long and short axis views. Mitral, tricuspid and aortic valves appear to be normal. Contractility of the left ventricle seems to be normal, so is the cavity size. ENLARGED LEFT ATRIAL CAVITY SIZE. Aortic root appears to be normal. There is no pericardial effusion. There is no thrombus noted in the left ventricle or left atrial cavity. M-MODE: MV: NORMAL AV: NORMAL TV: NORMAL PV: CHAMBER SIZE: ENLARGED LEFT ATRIAL AND RIGHT VENTRICLE CAVITIES WALL MOTION: NORMAL PERICARDIUM: NORMAL INTERPRETATION: 1. DIFFICULT STUDY--POOR COOPERATION 2. LEFT VENTRICLE HYPERTROPHY WITH ENLARGED LEFT ATRIAL CAVITY 3. NORMAL VALVES 4. NORMAL LEFT VENTRICLE SIZE AND LEFT VENTRICLE CONTRACTILITY UNCHANGED 07/2020 [facility]
[2023-02-16] MEDS: NORCO 5-325 PO PRN (20:41)
[2023-02-16] MEDS: LIPITOR PO SCH (20:41)
[2023-02-16] MEDS: XANAX PO PRN (20:47)
[2023-02-17] MEDS: DUONEB NEB SCH ×6 (01:36→21:17)
[2023-02-17] MEDS: LASIX TAB PO SCH (05:27)
[2023-02-17] MEDS: SYNTHROID PO SCH (05:27)
[2023-02-17 05:28] LABS: EOSINOPHILS # (AUTO) 0.1 K/ul (0.0-0.7); EOSINOPHILS % (AUTO) 2.6 % (0.0-7.0); HEMATOCRIT 35.5 % (37.0-47.0); HEMOGLOBIN 11.5 g/dl (12.0-16.0); IMMATURE GRANULOCYTE # (AUTO) 0.1 (0.0-1.0); IMMATURE GRANULOCYTE % (AUTO) 1.6 % (0.0-5.0); LYMPHOCYTES # (AUTO) 0.5 K/uL (0.60-3.4); LYMPHOCYTES % (AUTO) 9.1 (10.0-50.0); MEAN CORPUSCULAR HEMOGLOBIN 29.7 pg (27.0-31.0); MEAN CORPUSCULAR HGB CONC 32.4 (31.8-35.4); MEAN CORPUSCULAR VOLUME 91.7 fl (81.0-99.0); MONOCYTES # (AUTO) 0.3 K/uL (0.4-2.0); MONOCYTES % (AUTO) 5.5 (0-10); NEUTROPHILS % (AUTO) 81.2 % (42.2-75.2); PLATELET COUNT 148 10^3/uL (140-440); RDW COEFFICIENT OF VARIATION 14.6 % (11.6-14.8); RED BLOOD COUNT 3.87 10^6/ul (4.20-5.40); WHITE BLOOD COUNT 4.94 K/ul (4.6-10.2)
[2023-02-17] MEDS: PULMICORT 0.5 MG/2 ML NEB SCH ×2 (05:42→17:04)
[2023-02-17 05:49] LABS: ALANINE AMINOTRANSFERASE 31.5 U/L (0-35); ALBUMIN 2.86 g/dL (3.5-5.0); ALKALINE PHOSPHATASE 56.6 U/L (53-141); ASPARTATE AMINO TRANSFERASE 35.9 U/L (14-36); BILIRUBIN,TOTAL 0.8 mg/dL (0.2-1.3); BLOOD UREA NITROGEN 16.4 mg/dL (7-17); CALCIUM 9.45 mg/dL (8.4-10.2); CARBON DIOXIDE 29.3 mmol/L (22-30.0); CHLORIDE 101.7 mmol/L (98-107); CREATININE 0.74 mg/dL (0.60-1.30); POTASSIUM 3.25 mmol/L (3.5-5.1); SODIUM 132.1 mmol/L (134.5-145); TOTAL PROTEIN 5.52 g/dL (6.3-8.2)
[2023-02-17 05:52] LABS: PROTHROMBIN TIME 56.4 SEC (9.3-11.0)
[2023-02-17] MEDS: NON-FORMULARY MEDICATION (Azelastine 0.05 % drops) EACHEYE SCH ×2 (08:28→20:12)
[2023-02-17] MEDS: CLARITIN PO SCH (08:29)
[2023-02-17] MEDS: CALCIUM 500 + VIT D 5 MCG (200 IU) TABLET PO SCH ×2 (08:29→20:12)
[2023-02-17] MEDS: MAXIPIME 2 GM/50 ML D5W 2 GM/50 ML BAG IV SCH (08:29)
[2023-02-17] MEDS: NORVASC PO SCH ×2 (08:29→20:11)
[2023-02-17] MEDS: TRIGLIDE PO SCH (08:29)
[2023-02-17] MEDS: LEXAPRO PO SCH (08:29)
[2023-02-17] MEDS: SODIUM CHLORIDE PO SCH ×4 (08:29→20:12)
[2023-02-17] MEDS: NEURONTIN PO SCH ×3 (08:39→20:11)
[2023-02-17] MEDS ORDERED: K-DUR PO ONE ×2 (08:41→15:00)
[2023-02-17] MEDS: NYSTATIN ORAL SUSP PO SCH ×3 (11:21→20:11)
[2023-02-17] MEDS ORDERED: LASIX TAB PO ONE (11:29)
--- NOTE | 2023-02-17 11:29 | PCM.PROG ---
Date/Time Seen Date Seen by Provider: 02/17/23 Time Seen by Provider: 09:00 Provider Provider: [facility]OWSER [facility]-C, [facility] Chief Complaint Chief Complaint: UTI; ACUTE RESP FAILURE; SUPNATHERAPUTIC INR Subjective Subjective: Patient has no complaints today. Sleeping in bed, easily arousable. Awaiting hospital bed to be set up for patient at her home. INR high again today. Objective Appearance: Positive No Apparent Distress and Alert and Oriented x3 Chest/Lungs: Positive Symmetrical With Equal Breath Sounds, Rales (mild, kym lower lungs ) and Good Air Movement all 4 Lung [place] Heart: Positive RRR and Pulses Normal GI/: Positive Soft, Nontender, Bowel Sounds Normal and No Distention Musculoskeletal: Positive Not Examined Neurological: Positive Cranial Nerves Intact, Alert, Oriented and Other (+generalized weakness ) Vital Signs Vital Signs: Vital Signs: Last 24 Hours 02/16/23 13:00 02/16/23 13:56 02/16/23 14:00 Temperature 97.8 F Temperature Source Temporal Artery Scan Pulse Rate 70 Respiratory Rate 21 H Blood Pressure 131/57 L Blood Pressure Mean 81 Blood Pressure Location Right Arm Blood Pressure Position O2 Sat by Pulse Oximetry 98 94 L Oxygen Delivery Method Nasal Cannula Nasal Cannula Oxygen Flow Rate 4 4 Weight Telemetry Type Bedside Monitor Telemetry Monitoring Continues Irregular Telemetry Rate (Approximate) 60-70 BPM Telemetry Heart Rate 67 Telemetry SPO2 90 L EKG MD Interval EKG QRS Interval 0.08 Telemetry Strip Reading Afib 02/16/23 19:00 02/16/23 19:54 02/16/23 20:00 Temperature Temperature Source Pulse Rate Respiratory Rate Blood Pressure Blood Pressure Mean Blood Pressure Location Blood Pressure Position O2 Sat by Pulse Oximetry 95 Oxygen Delivery Method Nasal Cannula Nasal Cannula Oxygen Flow Rate 4 3 Weight Telemetry Type Bedside Monitor Telemetry Monitoring Continues Irregular Telemetry Rate (Approximate) Telemetry Heart Rate 74 Telemetry SPO2 95 EKG MD Interval 0.14 EKG QRS Interval 0.06 Telemetry Strip Reading nsr 02/16/23 21:12 02/17/23 01:00 02/17/23 05:25 Temperature 98.8 F 97.7 F Temperature Source Temporal Artery Scan Temporal Artery Scan Pulse Rate 68 67 Respiratory Rate 27 H 18 Blood Pressure 131/57 L 139/71 Blood Pressure Mean 81 93 Blood Pressure Location Left Arm Right Arm Blood Pressure Position Supine O2 Sat by Pulse Oximetry 95 96 Oxygen Delivery Method Nasal Cannula Nasal Cannula Oxygen Flow Rate 4 4 Weight Telemetry Type Bedside Monitor Telemetry Monitoring Continues Irregular Telemetry Rate (Approximate) Telemetry Heart Rate 64 Telemetry SPO2 96 EKG MD Interval 0.16 EKG QRS Interval 0.06 Telemetry Strip Reading sr 02/17/23 05:26 02/17/23 05:59 02/17/23 07:00 Temperature Temperature Source Pulse Rate Respiratory Rate Blood Pressure Blood Pressure Mean Blood Pressure Location Blood Pressure Position O2 Sat by Pulse Oximetry 95 Oxygen Delivery Method Nasal Cannula Oxygen Flow Rate 4 Weight 130 lb 4 oz Telemetry Type Bedside Monitor Telemetry Monitoring Continues Irregular Telemetry Rate (Approximate) Telemetry Heart Rate 69 Telemetry SPO2 94 EKG MD Interval 0.14 EKG QRS Interval 0.06 Telemetry Strip Reading SR 02/17/23 08:00 02/17/23 09:29 Temperature Temperature Source Pulse Rate Respiratory Rate Blood Pressure Blood Pressure Mean Blood Pressure Location Blood Pressure Position O2 Sat by Pulse Oximetry 94 L Oxygen Delivery Method Nasal Cannula Nasal Cannula Oxygen Flow Rate 4 4 Weight Telemetry Type Telemetry Monitoring Irregular Telemetry Rate (Approximate) Telemetry Heart Rate Telemetry SPO2 EKG MD Interval EKG QRS Interval Telemetry Strip Reading Lab Results Lab Results: Lab Results: Last 24 Hours 02/17/23 05:22 WBC 4.94 RBC 3.87 L Hgb 11.5 L Hct 35.5 L MCV 91.7 MCH 29.7 MCHC 32.4 RDW Coeff of Nataliya 14.6 Plt Count 148 Immature Gran % (Auto) 1.6 Neut % (Auto) 81.2 H Lymph % (Auto) 9.1 L [place] % (Auto) 5.5 Eos % (Auto) 2.6 Baso % (Auto) 0.0 Neut # (Auto) 4.0 Lymph # (Auto) 0.5 L [place] # (Auto) 0.3 L Eos # (Auto) 0.1 Baso # (Auto) 0.0 Immature Gran # (Auto) 0.1 PT 56.4 H D INR 5.80 H* Sodium 132.1 L Potassium 3.25 L Chloride 101.7 Carbon Dioxide 29.3 Anion Gap 4.35 BUN 16.4 Creatinine 0.74 Estimated GFR (MDRD) 74.00 BUN/Creatinine Ratio 22.16 Glucose 85.0 Calcium 9.45 Total Bilirubin 0.80 AST 35.9 ALT 31.5 Alkaline Phosphatase 56.6 Total Protein 5.52 L Albumin 2.86 L Globulin 2.66 Albumin/Globulin Ratio 1.07 Additional Comments Additional Comments: I have independently reviewed and interpreted the labs/EKGs/imaging ordered during this hospital stay. I have reviewed outside records that are available in our EMR that pertain to medical stay including imaging/notes/labs from previous visits. Active Medications Active Medications: Medications Generic Name Dose Route Start Last Admin Trade Name Freq PRN Reason Stop Dose Admin Acetaminophen 650 mg 02/11/23 13:35 02/12/23 19:18 Acetaminophen 325 Mg Tablet PO 650 mg Q4H PRN Administration Mild Pain Hydrocodone Bitart/Acetaminophen 1 tab 02/11/23 15:21 02/16/23 20:41 Hydrocodone Bit/Acetaminophen 5/325 Mg Tablet PO 1 tab TID PRN Administration Pain Albuterol Sulfate 2.5 mg 02/11/23 15:04 02/12/23 03:07 Albuterol Sulfate 0.083% Vial.Neb NEB 2.5 mg RTQ4H PRN Administration Wheezing Albuterol/Ipratropium 3 ml 02/11/23 18:00 02/17/23 09:29 Ipratropium/Albuterol Vial.Neb NEB 3 ml RTQ4H CHUY Administration Alprazolam 0.5 mg 02/11/23 15:21 02/16/23 20:47 Alprazolam 0.5 Mg Tablet PO 0.5 mg TID PRN Administration Anxiety Amlodipine Besylate 2.5 mg 02/11/23 21:00 02/17/23 08:29 Amlodipine Besylate 5 Mg Tablet PO 2.5 mg BID CHUY Administration Atorvastatin Calcium 40 mg 02/11/23 21:00 02/16/23 20:41 Atorvastatin Calcium 20 Mg Tablet PO 40 mg BEDTIME CHUY Administration Budesonide 0.5 mg 02/14/23 18:00 02/17/23 05:42 Budesonide 0.5 Mg/2 Ml Vial.Neb NEB 0.5 mg RTBID CHUY Administration Calcium/Vitamin D 1 each 02/11/23 21:00 02/17/23 08:29 Calcium Carbonate/Vitamin D3 500 Mg/5 Mcg(200iu) 1 Each Tablet PO 1 each BID CHUY Administration Clotrimazole 1 applic 02/11/23 15:21 Clotrimazole/Betamethasone 45 Gm Cream TP BID PRN Rash Escitalopram Oxalate 10 mg 02/12/23 09:00 02/17/23 08:29 Escitalopram Oxalate 10 Mg Tablet PO 10 mg DAILY CHUY Administration Fenofibrate 54 mg 02/12/23 09:00 02/17/23 08:29 Fenofibrate 54 Mg Tablet PO 54 mg DAILY CHUY Administration Furosemide 20 mg 02/16/23 06:00 02/17/23 05:27 Furosemide 20 Mg Tablet PO 20 mg QDAC2 CHUY Administration Gabapentin 100 mg 02/12/23 09:00 02/17/23 08:39 Gabapentin 100 Mg Capsule PO 100 mg 0900,1200 CHUY Administration Gabapentin 200 mg 02/11/23 21:00 02/16/23 20:41 Gabapentin 100 Mg Capsule PO 200 mg BEDTIME CHUY Administration Levothyroxine Sodium 75 mcg 02/12/23 06:00 02/17/23 05:27 Levothyroxine Sodium 75 Mcg Tablet PO 75 mcg QDAC2 CHUY Administration Loratadine 10 mg 02/12/23 09:00 02/17/23 08:29 Loratadine 10 Mg Tablet PO 10 mg DAILY CHUY Administration Non-Formulary Medication 1 drop 02/11/23 21:00 02/17/23 08:28 Azelastine EACHEYE Not Given BID CHUY Nystatin 1 applic 02/11/23 15:21 Nystatin 15 Gm Powder TP QID PRN yeast Nystatin 5 ml 02/17/23 11:00 02/17/23 11:21 Nystatin Susp 500,000 Units/5 Ml Cup PO 5 ml ACHS2 CHUY Administration Ondansetron HCl 4 mg 02/11/23 13:35 Ondansetron Hcl/Pf 4 Mg/2 Ml Sdv IVP Q6H PRN Nausea / Vomiting Ondansetron HCl 4 mg 02/11/23 21:00 Ondansetron Hcl 4 Mg Tablet PO BID PRN NAUSEA/VOMITING Sodium Chloride 1 syr 02/12/23 13:00 02/17/23 05:27 0.9% Sodium Chloride 10 Ml Disp.Syrin IVF 1 syr Q8HR CHUY Administration Sodium Chloride 1 gm 02/14/23 17:00 02/17/23 08:29 Sodium Chloride 1 Gm Tablet PO 1 gm QID CHUY Administration Warfarin Sodium 2.5 mg 02/17/23 17:00 Warfarin Sodium 2.5 Mg Tablet PO EVERY OTHER DAY@1700 [facility] Warfarin Sodium 1 mg 02/17/23 17:00 Warfarin Sodium 1 Mg Tablet PO EVERY OTHER DAY@1700 [facility] Plan Plan: 1. Acute Hypoxic Respiratory Failure in the setting of CHF and Covid-19 pneumonia - Improving, cont abx. Maintain O2 >92-94%. 2. Acute CHF Exacerbation - Improved, last echo done in 2020 EF 60%, vascular congestion noted on x-ray; echo completed, daily weight, strict I&O, lasix 20 daily, will give extra 20 today due to mild crackles, has diuresed 4-5L since admission 3. Covid-19 Pneumonia - Improving, see #1, azithromycin and cefepime, nebs 4. UTI - urine culture growth of klebsiella pneumoniae, on cefepime 5. Respiratory Alkalosis in setting of above - Resolved, no longer tachypneic, diamox x 2 doses 6. Hypokalemia - Resolved 7. Hyponatremia - Resolved 8. Supratherapeutic INR - Regressed, INR >5 this am, holding warfarin 3.5, no sign of active bleeding, repeat INR daily 9. Covid-19 - 10 day isolation complete on 02/12, wean oxygen, nebs 10. Hypertension - chronic, continue home medications 11. Hyperlipidemia - chronic, continue home medications 12. Hypothyroidism - chronic, continue home medications DVT: Warfarin - Plan for dc tomorrow Patient has a medical condition which requires positioning of the body in ways not feasible with an ordinary bed. The patient requires the head of the bed to be elevated more than 30 degrees most of the time due to CHF, and COPD. 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 Review Statement Review Statement: I have personally discussed and reviewed the patient's visit/currently labs/imaging/decision making with Dr. Sagastume, my supervising attending. Greater that 50 minutes spent with patient, 50% of the time spent with this patient was devoted to counseling and coordination of care.
[2023-02-17] MEDS ORDERED: WARFARIN PO SCH ×2 (17:00)
[2023-02-17] MEDS ORDERED: COUMADIN PO SCH ×2 (17:00)
[2023-02-17] MEDS: XANAX PO PRN (20:11)
[2023-02-17] MEDS: LIPITOR PO SCH (20:11)
[2023-02-17] MEDS: NORCO 5-325 PO PRN (20:12)
[2023-02-17] MEDS ORDERED: ZITHROMAX PO SCH (21:50)
[2023-02-17] MEDS ORDERED: MAXIPIME 2 GM/50 ML D5W 2 GM/50 ML BAG IV SCH (21:50)
[2023-02-18] MEDS: DUONEB NEB SCH ×4 (01:12→14:32)
[2023-02-18] MEDS: LASIX TAB PO SCH (05:25)
[2023-02-18] MEDS: PULMICORT 0.5 MG/2 ML NEB SCH (05:25)
[2023-02-18] MEDS: SYNTHROID PO SCH (05:25)
[2023-02-18] MEDS: NYSTATIN ORAL SUSP PO SCH ×2 (05:30→11:37)
[2023-02-18 05:37] LABS: BASOPHILS % (AUTO) 0.2 % (0.0-3.0); EOSINOPHILS # (AUTO) 0.1 K/ul (0.0-0.7); EOSINOPHILS % (AUTO) 1.9 % (0.0-7.0); HEMOGLOBIN 11.6 g/dl (12.0-16.0); IMMATURE GRANULOCYTE # (AUTO) 0.1 (0.0-1.0); IMMATURE GRANULOCYTE % (AUTO) 1.5 % (0.0-5.0); LYMPHOCYTES # (AUTO) 0.5 K/uL (0.60-3.4); LYMPHOCYTES % (AUTO) 8.2 (10.0-50.0); MEAN CORPUSCULAR HEMOGLOBIN 29.6 pg (27.0-31.0); MEAN CORPUSCULAR HGB CONC 32.2 (31.8-35.4); MEAN CORPUSCULAR VOLUME 91.8 fl (81.0-99.0); MONOCYTES # (AUTO) 0.3 K/uL (0.4-2.0); MONOCYTES % (AUTO) 4.5 (0-10); NEUTROPHILS # (AUTO) 4.9 K/ul (2.0-6.9); NEUTROPHILS % (AUTO) 83.7 % (42.2-75.2); PLATELET COUNT 151 10^3/uL (140-440); RDW COEFFICIENT OF VARIATION 14.5 % (11.6-14.8); RED BLOOD COUNT 3.92 10^6/ul (4.20-5.40); WHITE BLOOD COUNT 5.83 K/ul (4.6-10.2)
[2023-02-18 05:48] LABS: PROTHROMBIN TIME 31.9 SEC (9.3-11.0)
[2023-02-18 05:49] LABS: ALANINE AMINOTRANSFERASE 26.9 U/L (0-35); ALBUMIN 2.94 g/dL (3.5-5.0); ALKALINE PHOSPHATASE 64.6 U/L (53-141); ASPARTATE AMINO TRANSFERASE 29.3 U/L (14-36); BILIRUBIN,TOTAL 0.99 mg/dL (0.2-1.3); BLOOD UREA NITROGEN 17.5 mg/dL (7-17); CALCIUM 9.96 mg/dL (8.4-10.2); CARBON DIOXIDE 28.4 mmol/L (22-30.0); CHLORIDE 103.2 mmol/L (98-107); CREATININE 0.75 mg/dL (0.60-1.30); GLUCOSE 102.1 mg/dL (74-106); POTASSIUM 3.23 mmol/L (3.5-5.1); SODIUM 134.2 mmol/L (134.5-145); TOTAL PROTEIN 5.71 g/dL (6.3-8.2)
[2023-02-18] MEDS ORDERED: K-DUR PO ONE (08:08)
[2023-02-18] MEDS: NORVASC PO SCH (08:12)
[2023-02-18] MEDS: CALCIUM 500 + VIT D 5 MCG (200 IU) TABLET PO SCH (08:13)
[2023-02-18] MEDS: TRIGLIDE PO SCH (08:13)
[2023-02-18] MEDS: NEURONTIN PO SCH ×2 (08:13→12:54)
[2023-02-18] MEDS: CLARITIN PO SCH (08:13)
[2023-02-18] MEDS: SODIUM CHLORIDE PO SCH ×2 (08:14→12:54)
[2023-02-18] MEDS: LEXAPRO PO SCH (08:14)
[2023-02-18] MEDS: NON-FORMULARY MEDICATION (Azelastine 0.05 % drops) EACHEYE SCH (08:15)
[2023-02-18] MEDS ORDERED: DULCOLAX PO ONE (08:53)
[2023-02-18] MEDS ORDERED: MAXIPIME 2 GM/50 ML D5W 2 GM/50 ML BAG IV SCH (09:00)
--- NOTE | 2023-02-18 12:08 | DCSUM ---
Admission Date Admission Date: 02/11/23 Discharge Date Discharge Date: 02/18/23 Admission Diagnosis Admission Diagnosis: 1. Acute Hypoxic Respiratory Failure in the setting of CHF and Covid-19 2. Acute CHF Exacerbation 3. UTI 4. Hypokalemia 5. Supratherapeutic INR Discharge Diagnosis Discharge Diagnosis: 1. Acute Hypoxic Respiratory Failure in the setting of CHF and Covid-19 pneumonia 2. Acute CHF Exacerbation, improved 3. Covid-19 Pneumonia - Improving 4. UTI in setting of klebsiella pneumoniae 5. Respiratory Alkalosis - Resolved 6. Hypokalemia - Improved 7. Hyponatremia - Resolved 8. Supratherapeutic INR - Improved 9. Covid-19 10. Hypertension - chronic 11. Hyperlipidemia - chronic 12. Hypothyroidism - chronic 13. PAD, chronic Hospital Provider Hospital Provider: FR[facility]OWS[facility] Primary [facility] Physician Primary Care Physician: BIJAN ROWE MD Summary of History and Physical Summary of History and Physical: 87 yo female presented to the ER with complaints of weakness and SOB. Patient was admitted on 02/03 for Acute Hypoxic Respiratory Failure secondary to Covid- 19. Patient treated with remdesivir and dexamethasone. Completed 3 days. She was at baseline O2 use of 2L. Discharged home on remainder of dexamethasone. INR low, trending down, increased warfarin to 5 mg nightly. Was supposed to recheck INR on Friday per Dr. Harpreet Rowe and contact office for further instructions. Patient states that over the last few days she has been out of breath and very weak. Denies any fever that she is aware of. Denies any urinary symptoms. Denies chills, abdominal pain, N/V/D. In ER, O2 sat was found to be 84% and placed on 4L. This brought O2 sat up to 92%. She was found to have UTI on UA - patient also has chronic danielson catheter. Had fever of 100.6. Chest x-ray showing vascular congestion. No noted history of CHF but is on lasix. INR was found to be 6. Has continued to take increased dose of warfarin. Has INR monitor at home and does not recall checking it on Friday as instructed. Hospital Course Subjective: Patient was treated with lasix and diuresed well. CT chest showed evidence of pneumonia as well. She was treated with rocephin and azithromycin. UTI grew klebsiella pneumoniae. Patient continued to have SOB. Rocephin escalated to cefepime. Patient has required 4L throughout. Her breathing has returned to baseline. Completed regimen of abx. Has required lasix PO daily and potassium supplement daily. INR has returned to 3.2 today but has been difficult to control. Pharmacy consulted with patient's pcp regarding eliquis or xarelto. Dr. Harpreet Rowe/[employer] suggested Xarelto 15 mg daily. A 90 day supply at the pharmacy would be $4. Discussed with Daughter and she is in agreement. She understands to stop warfarin and no longer need to check INRs. Discussed with daughter that 4L may be patient's new baseline. Will discharge home on xarelto 15 mg qd, lasix 20 mg qd, potassium 20 meq qd. Recommend repeat bmp at pcp f/u. Home health ordered as well. Appearance: Pleasant, No Apparent Distress and Alert HEENT: MMM CVS: Other (regular rate and rhythm ) Abdomen: Soft, Non-Tender and No Distention Respiratory: No Accessory Muscle Use Extremities: No Edema Vital Signs: Most Recent Vital Signs Temperature 98.0 F 02/18/23 05:50 Temperature Source Oral 02/18/23 05:50 Temperature Source Infrared 02/11/23 14:19 Pulse Rate 68 02/18/23 05:50 Respiratory Rate 19 02/18/23 05:50 Blood Pressure 116/63 02/18/23 05:50 Blood Pressure Mean 80 02/18/23 05:50 Blood Pressure Left Arm 127/57 02/11/23 14:44 Blood Pressure Location Right Arm 02/18/23 05:50 Blood Pressure Position Supine 02/18/23 05:50 O2 Sat by Pulse Oximetry 95 02/18/23 10:00 Oxygen Delivery Method Nasal Cannula 02/18/23 10:00 Oxygen Flow Rate 4 02/18/23 10:00 Height 5 ft 2 in 02/11/23 14:44 Weight 131 lb 8 oz 02/18/23 05:45 Telemetry Type Remote Telemetry 02/18/23 07:00 Telemetry Monitoring Continues 02/18/23 07:00 Irregular Telemetry Rate (Approximate) 60-70 BPM 02/16/23 13:00 Telemetry Heart Rate 69 02/18/23 07:00 Telemetry SPO2 93 02/18/23 07:00 EKG [place] Interval 0.18 02/18/23 07:00 EKG QRS Interval 0.09 02/18/23 07:00 Telemetry Strip Reading Sinus Arrhythmia with freq. PAC's 02/18/23 07:00 Imaging: EXAM: CHEST ONE-VIEW HISTORY: Cough COMPARISON: 02/03/2023 FINDINGS: Hyperinflation is noted. Chronic changes present the pulmonary parenchyma. The pulmonary vascular markings are slightly indistinct. There is slight blunting of the right costophrenic angle. This may represent mild or early changes of congestive failure. Cardiac silhouette is moderately enlarged. Vascular calcifications present in the aortic arch and descending thoracic aorta. Cardiac monitoring leads are present. IMPRESSION: Mild or early changes of pulmonary vascular congestion superimposed on chronic obstructive pulmonary disease and chronic change in the pulmonary parenchyma. EXAM: CT ANGIOGRAM CHEST. HISTORY: Shortness of breath. COMPARISON: Radiograph 02/11/2023. CT 02/03/2023, 07/26/2020. TECHNIQUE: Multiple axial images of the chest were obtained following intravenous administration of 100 mL Visipaque 320, low osmolar. Images were reformatted in the sagittal and coronal plane. 3-D and maximum intensity projection reformatted images were created on an independent workstation. FINDINGS: No pulmonary arterial filling defect is seen. Atherosclerotic calcifications in the aorta and coronary arteries. There is no aortic dissec tion. Heart is enlarged. No pericardial effusion detected. There is no mediastinal, hilar, or axillary lymphadenopathy identified. Moderate emphysema. Calcified granulomatous changes noted. There is consolidation in both lower lobes and to a lesser extent dependent upper lobe and right middle lobe. Trace amount of pleural fluid present bilaterally. There is no pneumothorax. Limited images of the upper abdomen demonstrate no acute abnormality. Stable left adrenal nodule and left renal cyst. Inferior vena cava filter noted. Old T7, L2 and L3 compression deformities. IMPRESSION: 1. No pulmonary embolus. The patient has an inferior vena cava filter. 2. Bilateral consolidation, greater dependently with trace pleural effusion which could be due to pneumonia or edema. 3. Moderate emphysema. 4. Cardiomegaly and atherosclerosis. Lab Results Last 24 Hours: 02/18/23 05:28 WBC 5.83 RBC 3.92 L Hgb 11.6 L Hct 36.0 L MCV 91.8 MCH 29.6 MCHC 32.2 RDW Coeff of Nataliya 14.5 Plt Count 151 Immature Gran % (Auto) 1.5 Neut % (Auto) 83.7 H Lymph % (Auto) 8.2 L [place] % (Auto) 4.5 Eos % (Auto) 1.9 Baso % (Auto) 0.2 Neut # (Auto) 4.9 Lymph # (Auto) 0.5 L [place] # (Auto) 0.3 L Eos # (Auto) 0.1 Baso # (Auto) 0.0 Immature Gran # (Auto) 0.1 PT 31.9 H D INR 3.21 D Sodium 134.2 L Potassium 3.23 L Chloride 103.2 Carbon Dioxide 28.4 Anion Gap 5.83 BUN 17.5 H Creatinine 0.75 Estimated GFR (MDRD) 73.00 BUN/Creatinine Ratio 23.33 Glucose 102.1 Calcium 9.96 Total Bilirubin 0.99 AST 29.3 ALT 26.9 Alkaline Phosphatase 64.6 Total Protein 5.71 L Albumin 2.94 L Globulin 2.77 Albumin/Globulin Ratio 1.06 Discharge Instructions Discharge Planning: Discharge Planning > [address] Brian Rowe. Discharge Medications: Medications at Discharge (Home Meds & RX) azelastine 0.05 % eye drops 1 drp BOTHEYES BID 05/23/22 nystatin 100,000 unit/gram topical powder (Nystop) 1 applic topical QID PRN Redness #15 grams 07/25/22 C.COMMODE #1 ea 10/15/22 clotrimazole-betamethasone 1 %-0.05 % topical cream 1 applic topical BID #15 grams 11/11/22 fenofibrate 54 mg tablet See Rx Instructions .Route .COMPLEX #30 tabs 12/05/22 alprazolam 0.5 mg tablet 0.5 mg PO TID PRN Anxiety/Restlessness #90 tabs 01/02/23 amlodipine 2.5 mg tablet See Rx Instructions .Route .COMPLEX #60 tabs 01/02/23 atorvastatin 40 mg tablet See Rx Instructions .Route .COMPLEX #30 tabs 01/02/23 calcium carbonate 600 mg-vitamin D3 10 mcg (400 unit) tablet See Rx Instructions .Route .COMPLEX #60 tabs 01/02/23 cetirizine 10 mg tablet (Allergy Relief (cetirizine)) See Rx Instructions .Route .COMPLEX #30 ea 01/02/23 ferrous sulfate 325 mg (65 mg iron) tablet (FeroSul) See Rx Instructions .Route .COMPLEX #30 tabs 01/02/23 furosemide 20 mg tablet qd gabapentin 100 mg capsule See Rx Instructions .Route .COMPLEX #120 caps 01/02/23 ondansetron HCl 4 mg tablet See Rx Instructions .Route .COMPLEX #20 tabs 01/02/23 escitalopram oxalate 10 mg tablet See Rx Instructions .Route .COMPLEX #30 tabs 01/30/23 hydrocodone 5 mg-acetaminophen 325 mg tablet 1 tab PO TID PRN Pain, Moderate #90 tabs 01/30/23 levothyroxine 75 mcg tablet See Rx Instructions .Route .COMPLEX #30 tabs 01/30/23 potassium chloride 20 mEq tablet,extended release(part/cryst) See Rx Instructions Xarelto 15 mg qd Discharge Plan Discharge Discharge Orders: Discharge Patient (ONCE); Ordered 02/18/23 Ordered By: FRANK BOWSER Activity Restrictions/Additional Instructions: DISCHARGE TO HOME WITH HOME HEALTH DX: RESPIRATORY FAILURE, FLUID OVERLOAD, COVID DIET: HEART HEALTHY ACTIVITY: TOLERATED HOME HEALTH ORDERED WEAR 4L O2 Instructions: Urinary Tract Infection in Women (DC), Using Oxygen at Home (DC), Acute Respiratory Failure (GEN) Care Plan Goals: Problem: Infection Goal #1: No signs/symptoms of infection Instructions: Monitor for sign/symptoms of infection Monitor temperature Goal #2: White blood cell counts Within Normal Limits Instructions: Obtain labs per physician orders Problem: Impaired Respiratory Status Goal: Exhibit optimal respiratory function Instructions: Activities as tolerated Apply oxygen as ordered Elevate head of bed Notify MD of increased congestion Problem: Hyperanticoagulation Goal #1: Maintain PT/INR values Within Normal Limits Instructions: Obtain labs for PT/INR as ordered Monitor any mental status changes Medicate per order related to labs Goal #2: No active bleeding Instructions: Assess for bleeding Diet consult if indicated Patient Disposition: HOME WITH FAMILY CARE Prescriptions: New nystatin 100,000 unit/mL Suspension 5 ml PO ACHS2 Qty: 250 0RF Rx Instructions: SWISH AND SPIT. USE FOR DENTURES ALSO. USE FOR 2 MORE DAYS AFTER SYMPTOMS RESOLVED, THEN DISCONTINUE Xarelto 15 mg tablet 15 mg PO DAILY Qty: 90 0RF Rx Instructions: must administer with evening meal furosemide [Lasix] 20 mg tablet 20 mg PO DAILY Qty: 30 0RF Rx Instructions: Take with potassium potassium chloride 20 mEq tablet extended release 20 meq PO DAILY Qty: 30 0RF Rx Instructions: Take with lasix Continued clotrimazole-betamethasone 1-0.05 % cream 1 applic topical BID Qty: 15 0RF fenofibrate 54 mg tablet See Rx Instructions .ROUTE .COMPLEX Qty: 30 2RF Dose Instruction: TAKE ONE TABLET DAILY Rx Instructions: TAKE ONE TABLET DAILY calcium carbonate-vitamin D3 600 mg-10 mcg (400 unit) tablet See Rx Instructions .ROUTE .COMPLEX Qty: 60 2RF Dose Instruction: TAKE ONE TABLET TWICE DAILY Rx Instructions: TAKE ONE TABLET TWICE DAILY amlodipine 2.5 mg tablet See Rx Instructions .ROUTE .COMPLEX Qty: 60 2RF Dose Instruction: TAKE ONE TABLET TWICE DAILY GENERIC FOR NORVASC Rx Instructions: TAKE ONE TABLET TWICE DAILY GENERIC FOR NORVASC atorvastatin 40 mg tablet See Rx Instructions .ROUTE .COMPLEX Qty: 30 2RF Dose Instruction: TAKE ONE TABLET AT BEDTIME GENERIC FOR LIPITOR Rx Instructions: TAKE ONE TABLET AT BEDTIME GENERIC FOR LIPITOR ferrous sulfate [FeroSul] 325 mg (65 mg iron) tablet See Rx Instructions .ROUTE .COMPLEX Qty: 30 2RF Dose Instruction: TAKE ONE TABLET DAILY Rx Instructions: TAKE ONE TABLET DAILY cetirizine [Allergy Relief (cetirizine)] 10 mg tablet See Rx Instructions .ROUTE .COMPLEX Qty: 30 2RF Dose Instruction: TAKE ONE TABLET DAILY Rx Instructions: TAKE ONE TABLET DAILY gabapentin 100 mg capsule See Rx Instructions .ROUTE .COMPLEX Qty: 120 2RF Dose Instruction: TAKE ONE CAPSULE IN EVERY MORNING, TAKE ONE CAPSULE AT NOON, TAKE TWO CAPSULES AT BEDTIME. Rx Instructions: TAKE ONE CAPSULE IN EVERY MORNING, TAKE ONE CAPSULE AT NOON, TAKE TWO CAPSULES AT BEDTIME. ondansetron HCl 4 mg tablet See Rx Instructions .ROUTE .COMPLEX Qty: 20 1RF Dose Instruction: TAKE ONE TABLET TWICE DAILY NEEDED GENERIC FOR ZOFRAN Rx Instructions: TAKE ONE TABLET TWICE DAILY NEEDED GENERIC FOR ZOFRAN alprazolam 0.5 mg tablet 0.5 mg PO TID PRN (Reason: Anxiety/Restlessness) Qty: 90 2RF escitalopram oxalate 10 mg tablet See Rx Instructions .ROUTE .COMPLEX Qty: 30 2RF Dose Instruction: TAKE ONE TABLET DAILY GENERIC FOR LEXAPRO Rx Instructions: TAKE ONE TABLET DAILY GENERIC FOR LEXAPRO hydrocodone-acetaminophen 5-325 mg tablet 1 tab PO TID PRN (Reason: Pain, Moderate) Qty: 90 0RF levothyroxine 75 mcg tablet See Rx Instructions .ROUTE .COMPLEX Qty: 30 2RF Dose Instruction: TAKE ONE TABLET DAILY GENERIC FOR SYNTHROID Rx Instructions: TAKE ONE TABLET DAILY GENERIC FOR SYNTHROID azelastine 0.05 % drops 1 drp BOTHEYES BID nystatin [Nystop] 100,000 unit/gram Powder 1 applic topical QID PRN (Reason: Redness ) Qty: 15 0RF Rx Instructions: Apply under breast, abdominal folds, and groin as needed. Discontinued furosemide 20 mg tablet See Rx Instructions .ROUTE .COMPLEX Qty: 12 2RF Dose Instruction: TAKE ONE TABLET FRIDAY, FRIDAY, & FRIDAY GENERIC FOR LASIX Rx Instructions: TAKE ONE TABLET FRIDAY, FRIDAY, & FRIDAY GENERIC FOR LASIX potassium chloride 10 mEq tablet,ER particles/crystals See Rx Instructions .ROUTE .COMPLEX Qty: 12 2RF Dose Instruction: TAKE ONE TABLET THREE TIMES A WEEK WITH LASIX Rx Instructions: TAKE ONE TABLET THREE TIMES A WEEK WITH LASIX warfarin 5 mg Tablet 5 mg PO QPM Qty: 30 0RF Hold Instructions: ELEVATED PT Rx Instructions: REPEAT INR SATURDAY 02/10 dexamethasone 6 mg tablet 6 mg PO DAILY 7 Days Qty: 7 0RF No Action (DME) C.COMMODE Misc See Rx Instructions .ROUTE Qty: 1 0RF Rx Instructions: As directed BED SIDE Did you review [place] [employer] for ALL controlled substances?: Not Applicable Discussed opioids are addictive and Narcan is available by prescription or from pharmacy.: No Condition: Stable Referrals: BIJAN ROWE MD [Primary Care Provider] - 02/20/23 1:40 pm
[2023-02-18 14:53] VITALS: BP 156/60; PULSE 78; RESP 25; TEMP 98.1
[2023-02-18] MEDS ORDERED: ZITHROMAX PO SCH (21:00)
== END 2023-02-18 16:00 | disposition home or self-care (01) | DRG 177 ==
LOC: SCU 11:49 → ED 11:49 → OBSVTOIN 13:43 → SCU 14:40
PROVIDERS: ADMIT Hospitalist; ATTEND Physician Assistant
DX: E03.9 Hypothyroidism, unspecified; E87.6 Hypokalemia; J96.91 Respiratory failure, unspecified with hypoxia; R79.1 Abnormal coagulation profile; E78.5 Hyperlipidemia, unspecified; I49.3 Ventricular premature depolarization; U07.1 COVID-19; J12.82 Pneumonia due to coronavirus disease 2019; E87.3 Alkalosis; N39.0 Urinary tract infection, site not specified; B96.1 Klebsiella pneumoniae [K. pneumoniae] as the cause of diseases classified elsewhere; I73.9 Peripheral vascular disease, unspecified; I11.0 Hypertensive heart disease with heart failure

== ENCOUNTER 2024-04-22 14:17 | Observation (INO) ==
[2024-04-22 14:48] LABS: BASOPHILS % (AUTO) 0.5 % (0.0-3.0); EOSINOPHILS # (AUTO) 0.2 K/ul (0.0-0.7); EOSINOPHILS % (AUTO) 2.3 % (0.0-7.0); HEMATOCRIT 46.3 % (37.0-47.0); IMMATURE GRANULOCYTE % (AUTO) 0.5 % (0.0-5.0); LYMPHOCYTES # (AUTO) 1.6 K/uL (0.60-3.4); LYMPHOCYTES % (AUTO) 24.2 (10.0-50.0); MEAN CORPUSCULAR HEMOGLOBIN 28.7 pg (27.0-31.0); MEAN CORPUSCULAR HGB CONC 30.2 (31.8-35.4); MEAN CORPUSCULAR VOLUME 95.1 fl (81.0-99.0); MONOCYTES # (AUTO) 0.6 K/uL (0.4-2.0); MONOCYTES % (AUTO) 8.8 (0-10); NEUTROPHILS # (AUTO) 4.2 K/ul (2.0-6.9); NEUTROPHILS % (AUTO) 63.7 % (42.2-75.2); PLATELET COUNT 148 10^3/uL (140-440); RDW COEFFICIENT OF VARIATION 14.2 % (11.6-14.8); RED BLOOD COUNT 4.87 10^6/ul (4.20-5.40)
[2024-04-22 15:01] LABS: ALANINE AMINOTRANSFERASE 24.7 U/L (0-35); ALBUMIN 4.05 g/dL (3.5-5.0); BILIRUBIN,TOTAL 0.47 mg/dL (0.2-1.3); BLOOD UREA NITROGEN 18.1 mg/dL (7-17); CALCIUM 9.78 mg/dL (8.4-10.2); CARBON DIOXIDE 33.3 mmol/L (22-30.0); CREATININE 0.82 mg/dL (0.60-1.30); GLUCOSE 81.4 mg/dL (74-106); MAGNESIUM 2.14 mg/dL (1.6-2.3); POTASSIUM 3.72 mmol/L (3.5-5.1); SODIUM 140.3 mmol/L (134.5-145); TOTAL PROTEIN 6.48 g/dL (6.3-8.2)
--- NOTE | 2024-04-22 15:07 | DI ---
EXAM: CHEST RADIOGRAPH TECHNIQUE: Single frontal chest radiograph. HISTORY: Chest pain and dyspnea COMPARISON: None. FINDINGS: The lungs are clear. Aorta is atherosclerotic. The heart size is normal. Scoliosis. IMPRESSION: 1. No acute disease.
[2024-04-22 15:08] LABS: PROTHROMBIN TIME 10.1 SEC (9.3-11.0)
[2024-04-22 15:15] LABS: TROPONIN I < 0.012 ng/ml (0.0000-0.120)
--- NOTE | 2024-04-22 15:26 | ED.PDOC ---
General ED Provider: Dr. GRAEME ANTOINE DO Chief Complaint: Non-specific Complaint Stated Complaint: 88-year-old female presents to the ER by request of home health nurse for bradycardia and reported chest pain. The patient denies chest pain. Sent to ER for evaluation regardless. No reported recent illness, headache, changes in vision, tinnitus, trismus, neck pain, chest pain, palpitations, shortness of breath, abdominal pain, GI or symptoms. Patient has a history of left leg amputation therefore she is not ambulatory but states that she does transition herself between a wheelchair and another chair and does not feel she has had any increased difficulty with doing so. Medical history reviewed in chart. Patient has history of hypertension on amlodipine as well as Lasix. Review of chart does not demonstrate any beta-blockers or other obvious rate controlling medications. She is unsure if her heart rate is always this slow. Time Seen by Provider: 04/22/24 14:25 Information Source: Patient Primary Care Provider: BIJAN ROWE MD Nursing and Triage Documentation Reviewed and Agree: Yes What is Opioid Naive?: *Opioid Naive implies the patient is not already taking opioids or not chronically receiving opioids on a daily basis. *PRN dosing is not "usually" associated with tolerance. *Patients are at higher risk of over-sedation and aspiration. What is Opioid Tolerant?: *Opioid Tolerance implies less than the expected response to an opioid. *Acquired tolerance is defined by the patient taking 60mg of oral morphine daily (or equianalgesic dose of another opioid) for 1 week or more. *Often associated with chronic pain. *May take more than usual dose to achieve desired pain control. Review of Systems Review Of Systems Constitutional: Reports No symptoms All Other Systems: Reviewed and Negative [facility] Medical History Hypokalemia E87.6 - Hypokalemia (ICD-10) Supratherapeutic INR R79.1 - Abnormal coagulation profile (ICD-10) Acute hypoxemic respiratory failure J96.01 - Acute respiratory failure with hypoxia (ICD-10) UTI (urinary tract infection) N39.0 - Urinary tract infection, site not specified (ICD-10) Hypoxia R09.02 - Hypoxemia (ICD-10) Cough R05.9 - Cough, unspecified (ICD-10) Discomfort Z78.9 - Other specified health status (ICD-10) COVID-19 U07.1 - COVID-19 (ICD-10) Chronic anticoagulation Z79.01 - manager long term care (current) use of anticoagulants (ICD-10) Bronchitis, acute J20.9 - Acute bronchitis, unspecified (ICD-10) Encounter for Medicare annual wellness exam Z00.00 - Encounter for general adult medical examination without abnormal findings (ICD-10) Altered mental status, unspecified R41.82 - Altered mental status, unspecified (ICD-10) Tibia fracture S82.209A - Unspecified fracture of shaft of unspecified tibia, initial encounter for closed fracture (ICD-10) Dysuria R30.0 - Dysuria (ICD-10) Tremor R25.1 - Tremor, unspecified (ICD-10) Palpitations R00.2 - Palpitations (ICD-10) Cardiac arrhythmia I49.9 - Cardiac arrhythmia, unspecified (ICD-10) Hypokalemia E87.6 - Hypokalemia (ICD-10) Pneumonia J18.9 - Pneumonia, unspecified organism (ICD-10) Depression F32.9 - Major depressive disorder, single episode, unspecified (ICD-10) CAD (coronary artery disease) I25.10 - Atherosclerotic heart disease of [place] coronary artery without angina pectoris (ICD-10) Ovarian cyst N83.20 - Unspecified ovarian cysts (ICD-10) Family History FATHER Colon cancer Mother Colon cancer Other Pancreatic cancer Social History Smoking and tobacco status: Former smoker Tobacco: How many years used: 50 How long ago did patient quit smoking: Quit age 69 Second hand smoke exposure: Yes Alcohol intake: never Substance use type: does not use Household members: children Housing: house Marital status: W / Lives independently: Yes (daughter) Number of children: 4 Current occupational status: retired History of recent travel: No Current gender identity: female Seatbelt use: always Water heater temperature set < 120 degrees: Yes Working smoke detector in home: Yes Fire extinguisher in home: Yes Carbon monoxide detector in home: Yes Surgical History History of intravascular stent placement L leg 12/10 Z95.828 - Presence of other vascular implants and grafts (ICD-10) Female Reproductive History Menstrual Hx Hysterectomy: No Hx Tubal Ligation: No Physical Exam Physical Exam Appearance: Reports Well-appearing, No pain distress and Well-nourished; Denies Ill-appearing Eyes: Reports DICK, EOMI and Conjunctiva clear ENT: Reports Nose normal and Oropharynx normal Neck: Supple Respiratory: Reports Airway patent, Breath sounds clear, Breath sounds equal and Respirations nonlabored Cardiovascular: Reports Pulses normal and Bradycardia GI/: Reports Soft and Nontender Musculoskeletal: Reports Normal strength, ROM intact and Other (Left leg amputation) Skin: Reports Warm, Dry and Normal color Neurological: Reports Sensation intact, Motor intact, Alert and Oriented Psychiatric: Reports Affect appropriate and Mood appropriate Interpretation EKG Interpretation EKG Interpretation By: ED Physician (Independently interpreted) Time of EKG #1: 14:49 Rate: Dante (47) Rhythm: Sinus Ectopy: None [place]: Left ST Segment: Normal Interpretation: Nonischemic EKG, normal intervals Radiology Interpretation Radiology Interpretation By: Radiologist Radiology Results: No acute changes Exam Interpreted: Portable CXR Re-Evaluation Re-Evaluation Additional Comments: 88-year-old female presents to the ER by EMS by request of home health nurse for bradycardia. She has no acute complaints at the time of my interview. She is bradycardic and was also hypotensive. Occasional PVCs. No acute ischemia on EKG. Negative troponin. The patient seems otherwise asymptomatic with respect to her bradycardia. No obvious rate limiting medications however. Given the hypertension, will exclude a Nunda's reflex and obtain head CT although she does not have a headache. Laboratory workup grossly unremarkable otherwise. Will discuss with her physician in the case of other recommendations or guidance, patient otherwise medically stable and asymptomatic although bradycardic with a heart rate of 50 currently 1700: Discussed with patient's primary provider, Dr. Rowe, recommends observation in the hospital and he will see the patient in the morning. Patient has remained stable and well-appearing in no acute distress. Stable for admission at this time. Course Course 04/22/24 14:45 04/22/24 14:45 Orders, Labs, Meds: Lab Review 04/22/24 04/22/24 04/22/24 14:45 15:50 16:38 WBC 6.60 RBC 4.87 Hgb 14.0 Hct 46.3 MCV 95.1 MCH 28.7 MCHC 30.2 L RDW Coeff of Nataliya 14.2 Plt Count 148 Immature Gran % (Auto) 0.5 Neut % (Auto) 63.7 Lymph % (Auto) 24.2 Bath % (Auto) 8.8 Eos % (Auto) 2.3 Baso % (Auto) 0.5 Neut # (Auto) 4.2 Lymph # (Auto) 1.6 Bath # (Auto) 0.6 Eos # (Auto) 0.2 Baso # (Auto) 0.0 Immature Gran # (Auto) 0.0 PT 10.1 INR 0.97 APTT 21.0 L Sodium 140.3 Potassium 3.72 Chloride 102.0 Carbon Dioxide 33.3 H Anion Gap 8.72 BUN 18.1 H Creatinine 0.82 Estimated GFR (MDRD) 66.00 BUN/Creatinine Ratio 22.07 Glucose 81.4 Calcium 9.78 Magnesium 2.14 Total Bilirubin 0.47 AST 21.0 ALT 24.7 Alkaline Phosphatase 62.0 Troponin I < 0.012 Total Protein 6.48 Albumin 4.05 Globulin 2.43 Albumin/Globulin Ratio 1.66 Urine Color Yellow Urine Clarity Turbid Urine pH >=9.0 Ur Specific Ragan 1.010 Urine Protein 2+ H Urine Glucose (UA) Negative Urine Ketones Negative Urine Blood 1+ H Urine Nitrite Negative Urine Bilirubin Negative Urine Urobilinogen 0.2 Ur Leukocyte Esterase 1+ H Urine Microscopic RBC 2-5 Urine Microscopic WBC 10-20 Ur Squamous Epith Cells 2-5 Triple Phos Crystals 1+ Amorphous Sediment 3+ Urine Bacteria 1+ SARS CoV-2 RNA Rapid UTCKER Negative Orders Category Date Time Status ADMIT OBSERVATION [PLACE PATIENT OBSERVATION] .TO ADMISSION 04/22/24 17:19 Ordered MEDSURG (MONITORED BED) EKG-(ED ONLY) Stat CARDIO 04/22/24 14:34 Completed TELEMETRY MONITORING TELE CARE 04/22/24 17:19 Ordered CBC W/ AUTO DIFF Stat LAB 04/22/24 14:45 Completed CMP [COMPREHENSIVE METABOLIC PANEL] Stat LAB 04/22/24 14:45 Completed COVID [SARS COV-2 RNA RAPID TUCKER] Stat LAB 04/22/24 16:38 Completed MAGNESIUM Stat LAB 04/22/24 14:45 Completed PT WITH INR Stat LAB 04/22/24 14:45 Completed PTT [PARTIAL THROMBOPLASTIN TIME] Stat LAB 04/22/24 14:45 Completed TROPONIN I Stat LAB 04/22/24 14:45 Completed URINALYSIS C & S IF INDICATED Stat LAB 04/22/24 15:50 Completed URINE CULTURE Stat LAB 04/22/24 15:50 Received Gabapentin [Neurontin] Meds 04/22/24 16:39 Discontinued 300 mg PO ONCE STA CHEST, 1V AP ONLY Stat RADS 04/22/24 14:[address] HEAD W/O CONTRAST Stat RADS 04/22/24 14:51 Completed Medications Discontinued Medications Generic Name Dose Route Start Last Admin Trade Name Freq PRN Reason Stop Dose Admin Gabapentin 300 mg 04/22/24 16:39 04/22/24 16:46 Gabapentin 300 Mg Capsule PO 04/22/24 16:40 300 mg ONCE STA Administration Vital Signs: Temp Pulse Resp BP Pulse Ox 04/22/24 14:26 98.1 F 47 L 18 186/72 H 100 CYRUS Risk Score CYRUS Risk Score: Risk Score Odds of by 30D 0 0.1 (0.1-0.2) 1 0.3 (0.2-0.3) 2 0.4 (0.3-0.5) 3 0.7 (0.6-0.9) 4 1.2 (1.0-1.5) 5 2.2 (1.9-2.6) 6 3.0 (2.5-3.6) 7 4.8 (3.8-6.1) Discharge Plan Discharge Patient Disposition: PLACED OBSERVATION Discharge Problem: Asymptomatic bradycardia Prescriptions: No Action (DME) C.COMMODE Misc See Rx Instructions .ROUTE Qty: 1 0RF Rx Instructions: As directed BED SIDE (DME) miscellaneous medical supply Misc See Rx Instructions .ROUTE Qty: 1 0RF Rx Instructions: As directed AIR MATTRESS AMPUTATION (DME) Toothette Swab See Rx Instructions .ROUTE Qty: 1000 0RF Rx Instructions: As directed atorvastatin 40 mg tablet 40 mg PO BEDTIME Qty: 30 2RF amlodipine 2.5 mg tablet 2.5 mg PO 2XD Qty: 60 2RF fenofibrate 54 mg tablet 54 mg PO DAILY Qty: 30 2RF calcium carbonate-vitamin D3 600 mg-10 mcg (400 unit) tablet 1 tab PO 2XD Qty: 60 2RF cetirizine 10 mg tablet 10 mg PO DAILY Qty: 30 2RF gabapentin 100 mg capsule See Rx Instructions .ROUTE .COMPLEX Qty: 120 2RF Dose Instruction: TAKE ONE CAPSULE IN EVERY MORNING, TAKE ONE CAPSULE AT NOON, TAKE TWO CAPSULES AT BEDTIME. Rx Instructions: TAKE ONE CAPSULE IN EVERY MORNING, TAKE ONE CAPSULE AT NOON, TAKE TWO CAPSULES AT BEDTIME. ferrous sulfate [FeroSul] 325 mg (65 mg iron) tablet 325 mg PO DAILY Qty: 30 2RF potassium chloride 20 mEq tablet,ER particles/crystals 20 meq PO DAILY Qty: 30 2RF escitalopram oxalate 10 mg tablet 10 mg PO DAILY Qty: 30 2RF oxybutynin chloride 5 mg tablet 5 mg PO DAILY Qty: 30 2RF furosemide 20 mg tablet 20 mg PO DAILY Qty: 30 2RF aspirin 81 mg tablet,delayed release (DR/EC) 81 mg PO QDAY Did you review [place] [employer] for ALL controlled substances?: Not Applicable ED Provider: GRAEME ANTOINE Condition: Stable
--- NOTE | 2024-04-22 15:57 | CT ---
EXAM: BRAIN CT WITHOUT CONTRAST 04/22/2024 INDICATION: Hypertension. Bradycardia. COMPARISON: CT head 07/25/2022. TECHNIQUE: Unenhanced CT of the head was performed from the skull base to the vertex. FINDINGS: No intracranial hemorrhage or extra-axial collection. No mass, mass effect or midline shift. The smart -white matter differentiation is preserved. Cerebral volume loss. There are confluent subcortical an d periventricular white matter hypodensities, most commonly seen in chronic white matter microvascula r ischemic changes. The ventricles are normal in size for age The basal cisterns are patent. Mild mucosal thickening in the paranasal sinuses. The orbits are unremarkable. The visualized osseous str uctures are unremarkable. Intracranial vascular calcification. IMPRESSION: - No acute intracranial hemorrhage or mass effect. - Senescent changes. All CT scans are performed using dose optimization techniques as appropriate to the performed exam an d include at least one of the following: Automated exposure control, adjustment of the mA and/or kV according t o size, and the use of iterative reconstruction technique.
[2024-04-22 16:23] LABS: BILIRUBIN,URINE Negative (NEGATIVE); CLARITY,URINE Turbid (CLEAR); COLOR,URINE Yellow (YELLOW); GLUCOSE, URINE (UA) Negative (NEGATIVE); KETONES,URINE Negative (NEGATIVE); LEUKOCYTE ESTERASE ,URINE 1+ (NEGATIVE); NITRITE,URINE Negative (NEGATIVE); PH,URINE >=9.0 (5-9); PROTEIN,URINE 2+ (NEGATIVE); URINE, BLOOD 1+ (NEGATIVE); UROBILINOGEN,URINE 0.2 (0.2)
[2024-04-22 16:28] LABS: AMORPHOUS SEDIMENT,UR 3+ (NOT PRESENT); BACTERIA,URINE 1+ (NOT PRESENT)
[2024-04-22 16:29] LABS: TRIPLE PHOSPHATE CRYSTAL,UR 1+ (NOT PRESENT)
[2024-04-22] MEDS: NEURONTIN PO STA (16:46)
[2024-04-22 16:55] LABS: SARS COV-2 RNA RAPID NAAT NEGATIVE (NEGATIVE)
[2024-04-22] MEDS ORDERED: TYLENOL PO PRN (17:40)
[2024-04-22] MEDS: ROCEPHIN 1 GM/50 ML D5W 1 GM/50 ML BAG IV SCH (18:49)
[2024-04-22 20:39] VITALS: RESP 16; BMI 21.7
[2024-04-22] MEDS ORDERED: NORCO 5-325 PO PRN (21:14)
[2024-04-22] MEDS ORDERED: ASPIRIN EC PO SCH (21:30)
[2024-04-22] MEDS: NEURONTIN PO SCH (21:35)
[2024-04-22] MEDS: LIPITOR PO SCH (22:03)
[2024-04-22] MEDS: XANAX PO PRN (22:03)
[2024-04-23] MEDS: SYNTHROID PO SCH (05:51)
[2024-04-23] MEDS: LASIX TAB PO SCH (05:51)
[2024-04-23 06:02] LABS: BASOPHILS % (AUTO) 0.5 % (0.0-3.0); EOSINOPHILS # (AUTO) 0.3 K/ul (0.0-0.7); EOSINOPHILS % (AUTO) 5.5 % (0.0-7.0); HEMATOCRIT 41.1 % (37.0-47.0); HEMOGLOBIN 12.8 g/dl (12.0-16.0); IMMATURE GRANULOCYTE % (AUTO) 0.3 % (0.0-5.0); LYMPHOCYTES # (AUTO) 1.4 K/uL (0.60-3.4); LYMPHOCYTES % (AUTO) 21.8 (10.0-50.0); MEAN CORPUSCULAR HEMOGLOBIN 29.8 pg (27.0-31.0); MEAN CORPUSCULAR HGB CONC 31.1 (31.8-35.4); MEAN CORPUSCULAR VOLUME 95.8 fl (81.0-99.0); MONOCYTES # (AUTO) 0.5 K/uL (0.4-2.0); MONOCYTES % (AUTO) 7.9 (0-10); PLATELET COUNT 126 10^3/uL (140-440); RDW COEFFICIENT OF VARIATION 14.2 % (11.6-14.8); RED BLOOD COUNT 4.29 10^6/ul (4.20-5.40)
[2024-04-23 06:12] LABS: ALBUMIN 3.2 g/dL (3.5-5.0); BILIRUBIN,TOTAL 0.7 mg/dL (0.2-1.3); CALCIUM 9.1 mg/dL (8.4-10.2); CREATININE 0.8 mg/dL (0.60-1.30); POTASSIUM 3.6 mmol/L (3.5-5.1); TOTAL PROTEIN 5.4 g/dL (6.3-8.2)
[2024-04-23] MEDS: LEXAPRO PO SCH (08:43)
[2024-04-23] MEDS: ASPIRIN EC PO SCH (08:43)
[2024-04-23] MEDS: DITROPAN PO SCH (08:43)
[2024-04-23] MEDS: NEURONTIN PO SCH (08:43)
[2024-04-23] MEDS: FERROUS SULFATE PO SCH (08:43)
[2024-04-23] MEDS: K-DUR PO SCH (08:43)
[2024-04-23] MEDS: NALOXEGOL 12.5 MG PO SCH (09:00)
[2024-04-23] MEDS ORDERED: LASIX TAB PO SCH (09:00)
[2024-04-23 10:41] VITALS: PULSE 51
[2024-04-23] MEDS ORDERED: NEURONTIN PO SCH ×2 (12:00→21:00)
--- NOTE | 2024-04-23 12:14 | PCM.SS ---
Provider Provider[facility] KONSTANTIN HILLMAN[facility] Ad[facility] Date Admission Date: 04/22/24 Discharge Date Discharge Date: 04/23/24 Primary Care Physician Primary Care Physician: BIJAN SAGASTUME MD Chief Complaint Reason For Visit: BRACARDIA History of Present Illness History of Present Illness: Admitted 04/22/24 17:37, this 88 year old /WHITE/F presented to the ER from home for bradycardia. Patient states that her home health worker was checking her vital signs and found her HR to be in the 40s. States that she was not feeling bad. Denies dizziness, lightheadedness, chest pain, or any other symptoms. She does not take any medications for HR. She is on amlodipine for BP and that is all. UA found to be suspicious for UTI and was given rocephin. Admitted to med/surg observation for asymptomatic bradycardia. [facility] Medical History Hypokalemia E87.6 - Hypokalemia (ICD-10) Supratherapeutic INR R79.1 - Abnormal coagulation profile (ICD-10) Acute hypoxemic respiratory failure J96.01 - Acute respiratory failure with hypoxia (ICD-10) UTI (urinary tract infection) N39.0 - Urinary tract infection, site not specified (ICD-10) Hypoxia R09.02 - Hypoxemia (ICD-10) Cough R05.9 - Cough, unspecified (ICD-10) Discomfort Z78.9 - Other specified health status (ICD-10) COVID-19 U07.1 - COVID-19 (ICD-10) Chronic anticoagulation Z79.01 - intermediate accountant (current) use of anticoagulants (ICD-10) Bronchitis, acute J20.9 - Acute bronchitis, unspecified (ICD-10) Encounter for Medicare annual wellness exam Z00.00 - Encounter for general adult medical examination without abnormal findings (ICD-10) Altered mental status, unspecified R41.82 - Altered mental status, unspecified (ICD-10) Tibia fracture S82.209A - Unspecified fracture of shaft of unspecified tibia, initial encounter for closed fracture (ICD-10) Dysuria R30.0 - Dysuria (ICD-10) Tremor R25.1 - Tremor, unspecified (ICD-10) Palpitations R00.2 - Palpitations (ICD-10) Cardiac arrhythmia I49.9 - Cardiac arrhythmia, unspecified (ICD-10) Hypokalemia E87.6 - Hypokalemia (ICD-10) Pneumonia J18.9 - Pneumonia, unspecified organism (ICD-10) Depression F32.9 - Major depressive disorder, single episode, unspecified (ICD-10) CAD (coronary artery disease) I25.10 - Atherosclerotic heart disease of [place] coronary artery without angina pectoris (ICD-10) Ovarian cyst N83.20 - Unspecified ovarian cysts (ICD-10) Surgical History History of intravascular stent placement L leg 12/10 Z95.828 - Presence of other vascular implants and grafts (ICD-10) Family History (Updated 04/22/24 @ 20:55 by NELY ELDER, RN) FATHER Pancreatic cancer Unknown Colon cancer Mother Uterine cancer Social History Smoking and tobacco status: Former smoker Tobacco: How many years used: 50 How long ago did patient quit smoking: Quit age 69 Second hand smoke exposure: Yes Alcohol intake: never Substance use type: does not use Household members: children Housing: house Marital status: W / Lives independently: Yes (daughter) Number of children: 4 Current occupational status: retired History of recent travel: No Current gender identity: female Seatbelt use: always Water heater temperature set < 120 degrees: Yes Working smoke detector in home: Yes Fire extinguisher in home: Yes Carbon monoxide detector in home: Yes Medications Mecications: Medications at Discharge (Home Meds & RX) C.COMMODE #1 ea 10/15/22 aspirin 81 mg tablet,delayed release 81 mg PO QDAY 03/25/23 miscellaneous medical supply #1 ea 03/26/23 swab (Toothette swabs) #1,000 ea 11/17/23 amlodipine 2.5 mg tablet 2.5 mg PO 2XD #60 tabs 02/02/24 atorvastatin 40 mg tablet 40 mg PO BEDTIME #30 tabs 02/02/24 calcium 600 mg (as carbonate)-vitamin D3 10 mcg (400 unit) tablet 1 tab PO 2XD #60 tabs 02/02/24 fenofibrate 54 mg tablet 54 mg PO DAILY #30 tabs 02/02/24 cetirizine 10 mg tablet 10 mg PO DAILY #30 tabs 03/08/24 ferrous sulfate 325 mg (65 mg iron) tablet (FeroSul) 325 mg PO DAILY #30 tabs 03/08/24 gabapentin 100 mg capsule See Rx Instructions .Route .COMPLEX #120 caps 03/08/24 potassium chloride 20 mEq tablet,extended release(part/cryst) 20 meq PO DAILY #30 ea 03/08/24 escitalopram oxalate 10 mg tablet 10 mg PO DAILY #30 tabs 04/05/24 furosemide 20 mg tablet 20 mg PO DAILY #30 tabs 04/05/24 oxybutynin chloride 5 mg tablet 5 mg PO DAILY #30 tabs 04/05/24 alprazolam 0.5 mg tablet 0.5 mg PO BID PRN anxiety 04/22/24 hydrocodone 5 mg-acetaminophen 325 mg tablet 1 tab PO Q6H PRN pain 04/22/24 levothyroxine 88 mcg tablet 88 mcg PO DAILY 04/22/24 naloxegol 12.5 mg tablet (Movantik) 12.5 mg PO DAILY 04/22/24 Allergies Allergies Allergy/AdvReac Type Severity Reaction Status Date / Time denosumab (From Prolia) AdvReac Unknown Verified 04/22/24 15:13 propoxyphene HCl (From AdvReac Unknown Verified 04/22/24 15:13 Darvon) Review of Systems Constitutional: Reports No symptoms Head: Reports Normocephalic Eyes: Reports No symptoms Ears: Reports No symptoms Nose: Reports No symptoms Mouth: Reports No symptoms Throat: Reports No symptoms Cardiovascular: Reports Other (low heart rate) Respiratory: Reports No symptoms Gastrointestinal: Reports No symptoms Genitourinary: Reports No Symptoms Musculoskeletal: Reports No symptoms Endocrine: Reports No symptoms Hematology: Reports No symptoms Immunology: Reports No symptoms Neurological: Reports No symptoms Psychiatric: Reports No symptoms Physical Examination Appearance: Positive No Apparent Distress and Alert and Oriented x3 Head: Positive Normocephalic Eyes: Positive DICK ENT: Positive Not Examined Neck: Positive Supple, Non-Tender, Trachea Midline and No Carotid Bruits Heart: Positive RRR and No Murmurs Respiratory: Positive Airway patent, Breath Sounds Clear, Bilaterally, Breath Sounds Equal and Respirations Nonlabored GI/: Positive Soft, Nontender, Bowel sounds normal and No Distention Extremities: Positive Other (Pedal pulse palpable to RLE, amputated LLE) Neurological: Positive Sensation Intact, Motor Intact, Reflexes Intact, Alert and Oriented Vital Signs (Last 4 Hours) Vital Signs Last 4 Hours: Vital Signs: Last 4 Hours 04/23/24 09:00 04/23/24 10:00 04/23/24 10:00 Temperature 97.4 F L Temperature Source Temporal Artery Scan Pulse Rate 51 L Respiratory Rate 16 Blood Pressure 161/53 H Blood Pressure Mean 89 Blood Pressure Location Right Arm O2 Sat by Pulse Oximetry 99 Oxygen Delivery Method Nasal Cannula Nasal Cannula Nasal Cannula Oxygen Flow Rate 2 04/23/24 11:00 Temperature Temperature Source Pulse Rate Respiratory Rate Blood Pressure Blood Pressure Mean Blood Pressure Location O2 Sat by Pulse Oximetry Oxygen Delivery Method Nasal Cannula Oxygen Flow Rate Labs This Visit Labs This Visit: Labs This Visit 04/22/24 04/22/24 04/22/24 14:45 15:50 16:38 WBC 6.60 RBC 4.87 Hgb 14.0 Hct 46.3 MCV 95.1 MCH 28.7 MCHC 30.2 L RDW Coeff of Nataliya 14.2 Plt Count 148 Immature Gran % (Auto) 0.5 Neut % (Auto) 63.7 Lymph % (Auto) 24.2 Steele % (Auto) 8.8 Eos % (Auto) 2.3 Baso % (Auto) 0.5 Neut # (Auto) 4.2 Lymph # (Auto) 1.6 Steele # (Auto) 0.6 Eos # (Auto) 0.2 Baso # (Auto) 0.0 Immature Gran # (Auto) 0.0 PT 10.1 INR 0.97 APTT 21.0 L Sodium 140.3 Potassium 3.72 Chloride 102.0 Carbon Dioxide 33.3 H Anion Gap 8.72 BUN 18.1 H Creatinine 0.82 Estimated GFR (MDRD) 66.00 BUN/Creatinine Ratio 22.07 Glucose 81.4 Calcium 9.78 Magnesium 2.14 Total Bilirubin 0.47 AST 21.0 ALT 24.7 Alkaline Phosphatase 62.0 Troponin I < 0.012 Total Protein 6.48 Albumin 4.05 Globulin 2.43 Albumin/Globulin Ratio 1.66 TSH Urine Color Yellow Urine Clarity Turbid Urine pH >=9.0 Ur Specific Bono 1.010 Urine Protein 2+ H Urine Glucose (UA) Negative Urine Ketones Negative Urine Blood 1+ H Urine Nitrite Negative Urine Bilirubin Negative Urine Urobilinogen 0.2 Ur Leukocyte Esterase 1+ H Urine Microscopic RBC 2-5 Urine Microscopic WBC 10-20 Ur Squamous Epith Cells 2-5 Triple Phos Crystals 1+ Amorphous Sediment 3+ Urine Bacteria 1+ SARS CoV-2 RNA Rapid TUCKER Negative 04/23/24 05:55 WBC 6.20 RBC 4.29 Hgb 12.8 Hct 41.1 MCV 95.8 MCH 29.8 MCHC 31.1 L RDW Coeff of Nataliya 14.2 Plt Count 126 L Immature Gran % (Auto) 0.3 Neut % (Auto) 64.0 Lymph % (Auto) 21.8 Steele % (Auto) 7.9 Eos % (Auto) 5.5 Baso % (Auto) 0.5 Neut # (Auto) 4.0 Lymph # (Auto) 1.4 Steele # (Auto) 0.5 Eos # (Auto) 0.3 Baso # (Auto) 0.0 Immature Gran # (Auto) 0.0 PT INR APTT Sodium 136.0 Potassium 3.60 Chloride 104.0 Carbon Dioxide 29.0 Anion Gap 6.60 BUN 20.0 H Creatinine 0.80 Estimated GFR (MDRD) 68.00 BUN/Creatinine Ratio 25.00 Glucose 85.0 Calcium 9.10 Magnesium Total Bilirubin 0.70 AST 22.0 ALT 21.0 Alkaline Phosphatase 54.0 Troponin I Total Protein 5.40 L Albumin 3.20 L Globulin 2.20 Albumin/Globulin Ratio 1.45 TSH 2.020 Urine Color Urine Clarity Urine pH Ur Specific Bono Urine Protein Urine Glucose (UA) Urine Ketones Urine Blood Urine Nitrite Urine Bilirubin Urine Urobilinogen Ur Leukocyte Esterase Urine Microscopic RBC Urine Microscopic WBC Ur Squamous Epith Cells Triple Phos Crystals Amorphous Sediment Urine Bacteria SARS CoV-2 RNA Rapid TUCKER Microbiology This Visit 04/22/24 15:50 Urine,Clean Catch Urine Culture - Preliminary Imaging Imaging: EXAM: CHEST RADIOGRAPH FINDINGS: The lungs are clear. Aorta is atherosclerotic. The heart size is normal. Scoliosis. IMPRESSION: 1. No acute disease. EXAM: BRAIN CT WITHOUT CONTRAST 04/22/2024 FINDINGS: No intracranial hemorrhage or extra-axial collection. No mass, mass effect or midline shift. The smart-white matter differentiation is preserved. Cerebral volume loss. There are confluent subcortical and periventricular white matter hypodensities, most commonly seen in chronic white matter microvascular ischemic changes. The ventricles are normal in size for age The basal cisterns are patent. Mild mucosal thickening in the paranasal sinuses. The orbits are unremarkable. The visualized osseous structures are unremarkable. Intracranial vascular calcification. IMPRESSION: No acute intracranial hemorrhage or mass effect. Senescent changes. Review Review Statement: I have independently reviewed and interpreted the labs/EKGs/imaging that were ordered by the ER provider. I have reviewed all outside records that are available currently in our EMR including imaging/notes/labs from previous visits. Plan Reccomendations/Plan: 1. Asymptomatic Bradycardia - telemetry monitoring overnight, lowest HR 44, only medication patient is taking that could potentially cause but is less like is amlodipine, did not show difference in HR when holding medication, echo completed and did not show any new changes compared to previous, EF 62%. Per PCP, patient HR runs this way from time to time. He will follow in the office and likely do Holter monitor within 6 months or so. 2. UTI - UA questionable, urine culture did not show growth and reports possible contaminant. No WBC count, fever, or other s/sx of infection. Stopped a ntibiotics at this time. Of note, patient has chronic danielson that is managed by [facility]. By chart review of [place], [facility], and PCP notes, I do not see where a Urologist is managing this. Daughter reported to nursing staff excess amounts of sediment and home health is requiring her to flush the danielson to keep it patent. Recommend referring to urology for further evaluation. No changes to home medications. Additional Planning: Case discussed with ED Physician, Dr. Benson. DVT Prophylaxis: ASA Disposition: Admit to: Med/Surg Observation DNR Discussed Plan of Care with Dr. Eulalia Sagastume. If patient discharged with Left Ventricular Systolic Dysfunction: No Discharged with a beta aniceto? [] If no, why not? [] Discharged with an mandie/arb? [] If no, why not? [] Diagnosis: Asymptomatic Bradycardia Diet: Regular Activity: as tolerated Medications: No changes Follow-up with Dr. Sagastume. If you experience dizziness, lightheadedness, chest pain or confusion, please return to the ER. Your catheter does not require daily flushing. Please cleanse the yash area daily but do not flush catheter. This can place the risk of introducing bacteria into the body causing infection Review With Patient Reviewed with Patient and Family: Patient and family have been counseled on condition and care plan and have no immediate questions. I have personally discussed and reviewed the patient's visit/current labs/imaging/decision making with Dr. Brian Sagastume, my supervising attending. Total number of minutes spent with patient 85 min. More than 50% of the time spent with this patient was devoted to counseling and coordination of care. Time of Admission:04/22/24 17:37 Time of Discharge: 04/23/24 12:15 Discharge Plan Discharge Discharge Orders: Discharge Patient (ONCE); Ordered 04/23/24 Ordered By: YASMINE IYER Activity Restrictions/Additional Instructions: Diagnosis: Asymptomatic Bradycardia Diet: Regular Activity: as tolerated Medications: No changes Follow-up with Dr. Sagastume. If you experience dizziness, lightheadedness, chest pain or confusion, please return to the ER. Your catheter does not require daily flushing. Please cleanse the yash area daily but do not flush catheter. This can place the risk of introducing bacteria into the body causing infection. Instructions: Bradycardia (GEN) Patient Disposition: HOME WITH FAMILY CARE Prescriptions: Continued (DME) C.COMMODE Misc See Rx Instructions .ROUTE Qty: 1 0RF Rx Instructions: As directed BED SIDE (DME) miscellaneous medical supply Misc See Rx Instructions .ROUTE Qty: 1 0RF Rx Instructions: As directed AIR MATTRESS AMPUTATION (DME) Toothette Swab See Rx Instructions .ROUTE Qty: 1000 0RF Rx Instructions: As directed atorvastatin 40 mg tablet 40 mg PO BEDTIME Qty: 30 2RF amlodipine 2.5 mg tablet 2.5 mg PO 2XD Qty: 60 2RF fenofibrate 54 mg tablet 54 mg PO DAILY Qty: 30 2RF calcium carbonate-vitamin D3 600 mg-10 mcg (400 unit) tablet 1 tab PO 2XD Qty: 60 2RF cetirizine 10 mg tablet 10 mg PO DAILY Qty: 30 2RF gabapentin 100 mg capsule See Rx Instructions .ROUTE .COMPLEX Qty: 120 2RF Dose Instruction: TAKE ONE CAPSULE IN EVERY MORNING, TAKE ONE CAPSULE AT NOON, TAKE TWO CAPSULES AT BEDTIME. Rx Instructions: TAKE ONE CAPSULE IN EVERY MORNING, TAKE ONE CAPSULE AT NOON, TAKE TWO CAPSULES AT BEDTIME. ferrous sulfate [FeroSul] 325 mg (65 mg iron) tablet 325 mg PO DAILY Qty: 30 2RF potassium chloride 20 mEq tablet,ER particles/crystals 20 meq PO DAILY Qty: 30 2RF escitalopram oxalate 10 mg tablet 10 mg PO DAILY Qty: 30 2RF oxybutynin chloride 5 mg tablet 5 mg PO DAILY Qty: 30 2RF furosemide 20 mg tablet 20 mg PO DAILY Qty: 30 2RF alprazolam 0.5 mg tablet 0.5 mg PO BID PRN (Reason: anxiety) Patient Comments: [NO ORIGINAL SIG] levothyroxine 88 mcg tablet 88 mcg PO DAILY Movantik 12.5 mg tablet 12.5 mg PO DAILY hydrocodone-acetaminophen 5-325 mg tablet 1 tab PO Q6H PRN (Reason: pain) aspirin 81 mg tablet,delayed release (DR/EC) 81 mg PO QDAY Did you review [place] CLAIMS SERVICE ADJUSTOR for ALL controlled substances?: No Discussed opioids are addictive and Narcan is available by prescription or from pharmacy.: No Condition: Stable Referrals: BIJAN SAGASTUME MD [Primary Care Provider] - 04/28/24 3:55 am
--- NOTE | 2024-04-23 15:06 | ECHO2D ---
Date of Exam: 04/23/24 Ordering Physician: [facility]/ PCPFermin MCKOY Room #: 115 Reason for Echo: Bradycardia, dyslipidemia, COPD, PAD, DVT, HTN, ATAXIA, AMPUTEE L LEG M-Mode Normal Adult Results LV Dimensions Normal Adult Results AoV Opening excursions >1.6 1.4 LVEDD-base- 3.5-5.8 3.8 Ao root dimensions 2.0-3.7 3.0 LVESD-base- 3.1-4.6 L. Atrium dimensions 1.9-3.8 4.0 Post. Wall thickness 0.8-1.1 1.2 IV septum (thickness) 0.7-1.2 1.3 Post. Wall excursion 0.72-1.3 NORMAL Septal motion NORMAL Systolic motion R. Ventricular cavity 1.5-2.0 3.0 LVEF 60% 62% Paradoxical septal wall motion NORMAL 2-D : CALCIFIC MITRAL VALVE ANNULUS -MILD, NORMAL LEFT VENTRICLE SIZE AND NORMAL LEFT VENTRICLE CONTRACTILITY--VALVES--NORMAL, NO EFFUSION, NO THROMBUS, ENLARGED LEFT ATRIAL AND RIGHT VENTRICLE CAVITIES--BORDERLINE M-MODE: MV: Calcific Annulus (mild) AV: Normal TV: Normal PV: Normal CHAMBER SIZE: Enlarged Left Atrial and Right Ventricle Cavities WALL MOTION: Normal PERICARDIUM: Normal INTERPRETATION: 1. Left Ventricle Hypertrophy with Mildly Enlarged Left Atrial Cavity 2. Enlarged Right Ventricle Cavities 3. Normal Left Ventricle size and Left Ventricle contractility 4. All valves--Normal MTDD
[2024-04-23 15:38] VITALS: BP 164/61; TEMP 97.2
== END 2024-04-23 15:35 | disposition home or self-care (01) ==
LOC: MEDSURG B 14:17 → ED 14:17 → MEDSURG B 20:15
PROVIDERS: ADMIT Hospitalist; ATTEND Nurse Practitioner Family